=== PATIENT | male | born 1955 | race Caucasian/White ===

== ENCOUNTER → 2018-10-07 | Outpatient (CLI) | payer OTHER ==
[2018-10-07 11:57] VITALS: BP 164/85; PULSE 94; RESP 18
--- NOTE | 2018-10-07 12:55 | P.PAINCN ---
History of Present Illness - Reason for Consult Consult date: 10/07/18 - History of Present Illness This is 63 years old male with a chronic history of severe low back pain, patient diagnosed with lumbar degenerative disc disease and lumbar spondylosis with lumbar facet arthropathy, he had the lumbar laser spine surgery, done several years ago and he continued to have severe low back pain, the pain is constant and increases with any activity patient not able to do activities of daily livings because of the intensity of the pain, he denies any fever or night sweats he denies any change in the bowel movement or urination and is currently on Tylenol #3, every 6 hours ,and he is on Neurontin 600 mg 3 times a day Past Medical History Past Medical History: Heart Failure, Hyperlipidemia Additional Past Medical History / Comment(s): CARDIOMYOPATHY,VARICOSE VEINS. , BACK PAIN ,DIFFICULTY WALKING DISTANCE OR SITTING. History of Any Multi-Drug Resistant Organisms: None Reported Past Surgical History: Back Surgery, Heart Catheterization Additional Past Surgical History / Comment(s): COLONOSCOPY. PAIN CLINIC PROC'S , BACK SURGERY AT [facility] IN [place]. Past Anesthesia/Blood Transfusion Reactions: No Reported Reaction Smoking Status: Heavy tobacco smoker - Past Family History Father Family Medical History: No Reported History Medications and Allergies Home Medications Medication Instructions Recorded Confirmed Type Lisinopril [Zestril] 20 mg PO HS 01/29/14 10/06/18 History Metoprolol Tartrate [Lopressor] 12.5 mg PO BID 01/29/14 10/06/18 History Multivitamin [Multivitamins] 1 each PO DAILY 01/29/14 10/06/18 History Acetaminophen-Codeine 300-30mg 1 tab PO Q6H PRN 10/06/18 10/06/18 History [Tylenol w/codeine #3] Gabapentin [Neurontin] 600 mg PO TID 10/06/18 10/06/18 History Allergies Allergy/AdvReac Type Severity Reaction Status Date / Time No Known Allergies Allergy Verified 10/06/18 08:46 Physical Exam Vitals: Vital Signs Pulse Resp BP Pulse Ox 10/07/18 11:48 94 18 164/85 98 Social history : smoker , social ETOH , use marijuana Review of Systems : 1- Constitutional : no chills , no fever , no night sweats , 2- Ears : no ear discharge , no change in hearing 3-Nose, Mouth ,Throat ; no bleeding gums, no sore throat , no epistaxis , 4-Cardiovascular : Denies chest pain, , no orthopnea , no palpitation 5-Respiratory : Denies cough , no dyspnea , no hemoptysis 6-Gastrointestinal :, no change in bowel habits , no coffee- ground emesis . 7-Genitourinary : No hematuria , no discharge , no incontinence, 8-Musculoskeletal : No gait dysfunction , report low back pain , 9- Neurological : no ataxia , no tremor , no sezure , 10-Psychatric , no suicidal ideation no hallucination 11- Endocrine : no cold intolerence , no polyuria , no polydypsia , 12-Hematologic : no easy bleeding , no easy brusing , 13-Allergic / immunology : no angioedema , no wheezing ,no allergic rhinitis 14-Integumentary : no brttle nails , no change hair / nails , no foot/leg ulcers . Physical Examinations : 1-Constitutional : Cooperative , not in acute distress . 2-HEENT : nech ; supple , no Lymphadenopathy , no Thyromegaly , :eyes , no icterus, no photophobia . ENT : , normal oropharynx , no Thrush 3- Respiratory : Chest clear to auscultations Bilaterally , no wheezing . 4- Cardiovascular : regular rate and rhythem , S1 , S2 , no S3 , no S4. 5- Gastrointestinal: abdomen soft no tenderness , no organomegally . 6- Genitourinary : Defferred . 7-Integumentary : No cellulitis , no ulcers , normal skin turgor , no cyanotic . 8- neurologic : Cranial nerve II to XII intact , no focal neurological deffecit 9-psychatric : alert , oriented X 3 , appropriate affect , intact judgment and insight . 10-Lymphatic : no Lymphadenopathy. 11- musculoskeltal: abnormal gait Lumber spine moter stegnth lower extremities ,thigh and legs 5/5 Right side , 5/5 Left side deep tendon reflexes : normal Knee Jerk , normal ankle Jerk positive lumber facet Loading Test Range of motion of the lumbar spine Flexion 30 degrees, extension 10 degrees strait leg raising test negative bilaterally Fabere test negative bilaterally Results Comments: MRI of the lumbar spine done at [facility] 2018= multilevel lumbar degenerative disc disease multilevel lumbar facet arthropathy , and right hemilaminectomy changes at the L34 , L4 5 Assessment and Plan Plan: Assessment and plan= chronic severe low back pain secondary to failed back surgery syndrome and lumbar area, lumbar spondylosis with lumbar facet arthropathy, and lumbar degenerative disc disease , patient will be good candidate for diagnostic medial branch block lumbar area at L3 to S1, done twice and it is possible proceed with the radiofrequency ablation of the medial branch lumbar area, procedure risk and benefits and alternatives were discussed with the patient he agreed with the preceding, patient should continue his current medication is getting prescription refills from his primary care Time with Patient: Greater than 30 PQRS Measure Charge Sheet Measure #130: Documentation of Current Meds in Medical Chart: Patient's medications documented in chart Measure #226: Tobacco Use: Screen & Cessation Intervention: Pt screened for tobacco use AND intervention given Measure #111: Pneumonia Vaccination: Pneumococcal vaccine NOT administered or previously given Measure #47: Advance Care Plan: Advance care planning discussed & documented, pt chose/unable to give Measure #412: Opioid Treatment Agreement: No documentation of signed opioid treatment agreement Measure #408: Opioid Therapy Follow-up Evaluation: Patient had NO f/u eval minimum every 3 months during opioid therapy Measure #317: Preventitive Care & Scrn High Bld Press & F/U: Pre-hypertensive or hypertensive BP documented, pt will f/u with PCP Measure #128: Body Mass Index (BMI) Screening & Follow-up: BMI documented within normal parameters Measure #131: Pain Assessment & Follow-up: Pain positive & plan documented, Follow-up scheduled Measure #431: Unhealthy Alcohol Use Preventative Care & Scrn: Patient not identified as an unhealthy alcohol user PQRS Narrative: Smoking Status Heavy tobacco smoker Do You Want the Pneumonia No Vaccine AT THIS TIME? Blood Pressure 164/85 Pain Intensity [Back] 7 Scale Used Numeric (1 - 10) Hx Alcohol Use (MH) Yes Home Medications: Ambulatory Orders Lisinopril [Zestril] 20 mg PO HS 01/29/14 Metoprolol Tartrate [Lopressor] 12.5 mg PO BID 01/29/14 Multivitamin [Multivitamins] 1 each PO DAILY 01/29/14 Acetaminophen-Codeine 300-30mg [Tylenol w/codeine #3] 1 tab PO Q6H PRN 10/06/18 Gabapentin [Neurontin] 600 mg PO TID 10/06/18
== END ==
LOC: PNWHC3 11:27
PROVIDERS: ATTEND Specialist
DX: G89.29 Other chronic pain (principal); M96.1 Postlaminectomy syndrome, not elsewhere classified; M51.36 Other intervertebral disc degeneration, lumbar region; M47.816 Spondylosis without myelopathy or radiculopathy, lumbar region; M46.96 Unspecified inflammatory spondylopathy, lumbar region; F17.290 Nicotine dependence, other tobacco product, uncomplicated; Z79.899 Other long term (current) drug therapy
CPT/HCPCS: 99211

== ENCOUNTER → 2018-10-21 | Day surgery (SDC) | payer OTHER ==
[~2018-10-21] MED LIST: IV FLUID CONTINUATION 1,000 ML IV ONE; LACTATED RINGERS 1,000 ML IV ONE; LIDOCAINE 1% 20 ML VIAL (10MG/ML) FOR IV START INTRADERMA ONE; SODIUM CHLORIDE 0.9% 500 ML 500 ML IV SCH
[2018-10-21 07:42] VITALS: TEMP 98.4
--- NOTE | 2018-10-21 08:55 | P.PCN ---
Date of Procedure: 10/21/18 Procedure(s) Performed: PREOPERATIVE DIAGNOSIS : 1- Lumbar spondylosis with Facet Arthropathy without myelopathy . 2- Lumber degenerative disc disease POSTOPERATIVE DIAGNOSIS: 1- Lumbar spondylosis with Facet Arthropathy without myelopathy . 2- Lumber degenerative disc disease PROCEDURE: Diagnostic bilateral L3 -4 , L4 -5 , and L5-S1 medial branch block under fluoroscopy ANESTHESIA: Local with Ropivacain 0.5 % 6 ml , moderate sedation with intravenous Versed 2 mg and Fentanyl 150 mcg. EBL: Minimal COMPLICATION: None. IV FLUIDS: 100 mL of normal saline. PROCEDURE INDICATION: Chronic low back pain secondary to Facet arthropathy unresponsive to conservative treatment. PROCEDURE DESCRIPTION: the patient was seen and identified in the preop holding area , risks and benefits and possible complications of the procedure and alternative were discussed with the patient, and the patient agreed to proceed with the procedure and signed the consent IV was started and vital signs monitored during the procedure and fluoroscopy was used to maximize the benefit and accuracy of the needle placement, and sedation was given to decrease patient anxiety, patient was taken to the procedure room and placed in prone position vital signs monitored in the back prepped with chlorhexidine X3 then under strict sterile technique using a right oblique fluoroscopy ,the junction of the transverse process and the superior articulating process of the right L3- 4 , L4- 5, and L5-S1 vertebra which corresponding to the fluoroscopy image of the eye of the Donovan dog on the block side for the medial branches and subsequently , after local infiltration of skin and subcu tissuies with Ropivacaine 0.5 % , one mL at each level , then 22-gauge Quincke-type needles , 3 needle was used , each one of them placed at the junction of the base of the transverse process and the superior articular process at the appropriate level, and the needle was advanced until the periosteum contacted, needle placement confirmed with AP oblique and lateral view and after appropriate needle placement confirmed, and after negative aspiration for heme and CSF and there was no paresthesia 1-1/2 mL of Ropivacaine 0.5% mixed with 20 mg kenalog, then half mL injected at each level after negative aspiration the needle subsequently removed and the same procedure repeated for the left side at left side at L3-4, L4- 5 and L5-S1 levels. At the end of the procedure and the needles removed and a bandage applied after the skin was cleaned the cleaning solution patient taken to recovery room in stable condition and monitors in the recovery room for 20-30 minutes and discharged home in stable condition after discharge criteria met and patient will follow up with the pain clinic in 2-4 weeks
--- NOTE | 2018-10-21 09:09 | FL ---
EXAMINATION TYPE: FL guided pain mgmt statistic DATE OF EXAM: 10/21/2018 CLINICAL HISTORY: Low back pain. TECHNIQUE: Fluoroscopy. COMPARISON: None. FINDINGS: Fluoroscopic guidance was provided during pain relief procedure performed by Dr. Calix . A total of 10 seconds of fluoroscopic time was utilized during the procedure and 3 spot images are acquired. Images acquired shows needle localization at several levels in the lower lumbar spine off the midline. IMPRESSION: As Above.
[2018-10-21 09:17] VITALS: BP 135/85; PULSE 77; RESP 18
== END | disposition home or self-care (01) ==
LOC: ORPAIN 07:21
PROVIDERS: ATTEND Specialist
DX: M47.816 Spondylosis without myelopathy or radiculopathy, lumbar region (principal); G89.29 Other chronic pain; M96.1 Postlaminectomy syndrome, not elsewhere classified; M51.36 Other intervertebral disc degeneration, lumbar region; E78.5 Hyperlipidemia, unspecified; F17.200 Nicotine dependence, unspecified, uncomplicated; I50.9 Heart failure, unspecified; Z79.899 Other long term (current) drug therapy
CPT/HCPCS: 64493; 64494; 64495; J2250; J3301; J3010; 99152

== ENCOUNTER 2018-11-04 05:55 | Day surgery (SDC) | payer OTHER ==
[~2018-11-04 05:55] MED LIST changes: -IV FLUID CONTINUATION 1,000 ML IV ONE; -LACTATED RINGERS 1,000 ML IV ONE; -LIDOCAINE 1% 20 ML VIAL (10MG/ML) FOR IV START INTRADERMA ONE
[2018-11-04 06:25] VITALS: RESP 16; TEMP 97.6
[2018-11-04] MEDS ORDERED: LACTATED RINGERS 1,000 ML IV ONE (06:34)
[2018-11-04] MEDS ORDERED: LIDOCAINE 1% 20 ML VIAL (10MG/ML) FOR IV START INTRADERMA ONE (06:35)
[2018-11-04] MEDS ORDERED: IV FLUID CONTINUATION 1,000 ML IV ONE (07:27)
[2018-11-04 07:43] VITALS: BP 112/76; PULSE 81
--- NOTE | 2018-11-04 07:52 | P.PCN ---
Date of Procedure: 11/04/18 Procedure(s) Performed: PREOPERATIVE DIAGNOSIS : 1- Lumbar spondylosis with Facet Arthropathy without myelopathy . 2- Lumber degenerative disc disease POSTOPERATIVE DIAGNOSIS: 1- Lumbar spondylosis with Facet Arthropathy without myelopathy . 2- Lumber degenerative disc disease PROCEDURE: Diagnostic bilateral L3 -4 , L4 -5 , and L5-S1 medial branch block under fluoroscopy ANESTHESIA: Local with Ropivacain 0.5 % 6 ml , moderate sedation with intravenous Versed 4 mg ,and Fentanyl 100 mcg. EBL: Minimal COMPLICATION: None. IV FLUIDS: 100 mL of normal saline. PROCEDURE INDICATION: Chronic low back pain secondary to Facet arthropathy unresponsive to conservative treatment. PROCEDURE DESCRIPTION: the patient was seen and identified in the preop holding area , risks and benefits and possible complications of the procedure and alternative were discussed with the patient, and the patient agreed to proceed with the procedure and signed the consent IV was started and vital signs monitored during the procedure and fluoroscopy was used to maximize the benefit and accuracy of the needle placement, and sedation was given to decrease patient anxiety, patient was taken to the procedure room and placed in prone position vital signs monitored in the back prepped with chlorhexidine X3 then under strict sterile technique using a right oblique fluoroscopy ,the junction of the transverse process and the superior articulating process of the right L3- 4 , L4- 5, and L5-S1 vertebra which corresponding to the fluoroscopy image of the eye of the Donovan dog on the block side for the medial branches and subsequently , after local infiltration of skin and subcu tissuies with Ropivacaine 0.5 % , one mL at each level , then 25-gauge Quincke-type needles , 3 needle was used , each one of them placed at the junction of the base of the transverse process and the superior articular process at the appropriate level, and the needle was advanced until the periosteum contacted, needle placement confirmed with AP oblique and lateral view and after appropriate needle placement confirmed, and after negative aspiration for heme and CSF and there was no paresthesia 1-1/2 mL of Ropivacaine 0.5% mixed with 20 mg kenalog, then half mL injected at each level after negative aspiration the needle subsequently removed and the same procedure repeated for the left side at left side at L3-4, L4- 5 and L5-S1 levels. At the end of the procedure and the needles removed and a bandage applied after the skin was cleaned the cleaning solution patient taken to recovery room in stable condition and monitors in the recovery room for 20-30 minutes and discharged home in stable condition after discharge criteria met and patient will follow up with the pain clinic in 2-4 weeks
--- NOTE | 2018-11-04 14:13 | FL ---
Fluoroscopy INDICATION: Pain FINDINGS: Fluoroscopy time: 9 seconds. Images obtained: 4. IMPRESSIONS: 1. Documentation of fluoroscopy.
== END 2018-11-04 08:00 | disposition home or self-care (01) ==
LOC: ORPAIN 05:55
PROVIDERS: ATTEND Specialist
DX: G89.29 Other chronic pain (principal); M47.816 Spondylosis without myelopathy or radiculopathy, lumbar region; M51.36 Other intervertebral disc degeneration, lumbar region; I10 Essential (primary) hypertension
CPT/HCPCS: 64493; 64494; 64495; J2250; J1030; J3010; 99152

== ENCOUNTER → 2018-11-25 | Outpatient (CLI) | payer OTHER ==
[2018-11-25 12:36] VITALS: BP 128/90; PULSE 93; RESP 16
--- NOTE | 2018-11-25 14:47 | P.PAINPG ---
Subjective Progress Note Date: 11/25/18 This is a follow-up visit for this 63 years old male with a chronic history of severe low back pain is diagnosed with lumbar spondylosis with lumbar facet arthropathy and failed back surgery syndrome lumbar., Recently we have done diagnostic medial branch block lumbar area L3 to S1, 2 and patient get more than 70% improvement in his low back pain for short-term , he denies any fever or night sweats he denies any motor or sensory deficit, he reported that pain increases with any activity, he continued to use Neurontin 600 mg 3 times a day and Tylenol 3 when necessary , he denies any side effects of the medication he denies any excessive drowsiness or sleepiness Objective - Vital Signs Vital signs: Vital Signs Temp Pulse 93 11/25/18 12:29 Resp 16 11/25/18 12:29 BP 128/90 11/25/18 12:29 Pulse Ox Intake & Output 11/24/18 11/25/18 11/25/18 18:59 06:59 18:59 Weight 63.503 kg - Exam Physical Examinations : -Constitutiona : Cooperative , not in acute distress . -HEENT : nech ; supple , no Lymphadenopathy , normal thyroid size . eyes : no ptosis , no icterus, no photophobia . - musculoskeltal : . Lumber spine moter stegnth lower extremities ,thigh and legs 5/5 Right side , 5/5 Left side positive lumber facet Loading Test Assessment and Plan Plan: Assessment and plan= chronic severe low back pain secondary to lumbar spondylosis and failed back surgery syndrome lumbar area Patient had a good result after the diagnostic medial branch block lumbar area at L3 4, L4 5, L5-S1 2 We will be good candidate for radiofrequency ablation of the medial branch lumbar area ,we will start the right side first Time with Patient: Less than 30 PQRS Measure Charge Sheet Measure #130: Documentation of Current Meds in Medical Chart: Patient's medications documented in chart Measure #226: Tobacco Use: Screen & Cessation Intervention: Pt screened for tobacco use AND intervention given Measure #111: Pneumonia Vaccination: Pneumococcal vaccine NOT administered or previously given Measure #47: Advance Care Plan: Advance care planning discussed & documented, pt chose/unable to give Measure #412: Opioid Treatment Agreement: No documentation of signed opioid treatment agreement Measure #408: Opioid Therapy Follow-up Evaluation: Patient had NO f/u eval minimum every 3 months during opioid therapy Measure #317: Preventitive Care & Scrn High Bld Press & F/U: Normal blood pressure, f/u not required Measure #128: Body Mass Index (BMI) Screening & Follow-up: BMI documented within normal parameters Measure #131: Pain Assessment & Follow-up: Pain positive & plan documented, Follow-up scheduled Measure #431: Unhealthy Alcohol Use Preventative Care & Scrn: Patient not identified as an unhealthy alcohol user PQRS Narrative: Smoking Status Current every day smoker Blood Pressure 128/90 Pain Intensity [Lower Back] 5 Hx Alcohol Use (MH) Yes Home Medications: Ambulatory Orders Lisinopril [Zestril] 20 mg PO HS 01/29/14 Metoprolol Tartrate [Lopressor] 12.5 mg PO BID 01/29/14 Multivitamin [Multivitamins] 1 each PO DAILY 01/29/14 Acetaminophen-Codeine 300-30mg [Tylenol w/codeine #3] 1 tab PO Q6H PRN 10/06/18 Gabapentin [Neurontin] 600 mg PO TID 10/06/18 Controlled Substance Measures - Controlled Substance Measures Is patient prescribed a controlled substance at discharge?: No
== END ==
LOC: PNWHC3 12:15
PROVIDERS: ATTEND Specialist
DX: G89.29 Other chronic pain (principal); M47.816 Spondylosis without myelopathy or radiculopathy, lumbar region; M96.1 Postlaminectomy syndrome, not elsewhere classified; F17.200 Nicotine dependence, unspecified, uncomplicated; Z79.899 Other long term (current) drug therapy
CPT/HCPCS: 99211

== ENCOUNTER 2018-12-10 08:18 | Day surgery (SDC) | payer OTHER ==
[2018-12-10 08:53] VITALS: RESP 16; TEMP 97.5
[2018-12-10] MEDS ORDERED: LACTATED RINGERS 1,000 ML IV ONE (08:54)
[2018-12-10] MEDS ORDERED: LIDOCAINE 1% 20 ML VIAL (10MG/ML) FOR IV START INTRADERMA ONE (08:54)
--- NOTE | 2018-12-10 09:57 | P.PCN ---
Date of Procedure: 12/10/18 Procedure(s) Performed: PREOPERATIVE DIAGNOSIS: 1-Lumbar Spondylosis with Facet Arthropathy without myelopathy. 2- Lumber degenerative disc disease POSTOPERATIVE DIAGNOSIS: 1- Lumbar Spondylosis with Facet Arthropathy without myelopathy. 2- Lumber degenerative disc disease PROCEDURES : Left Right Bilateral Radiofrequency thermocoagulation, L3-L4, L4-L5, and L5-S1 medial branch, with fluoroscopic guidance ANESTHESIA: Moderate sedation with intravenous versed 4 mg and fentaneyl 100 mcg, and local infiltration with Ropivacaine 0.5 % . EBL: Minimal PROCEDURE INDICATION: The patient with low back pain secondary to lumbar facet arthropathy who had more than 50% relief of her pain with previous diagnostic lumbar medial branch block with bupivacaine. PROCEDURE DESCRIPTION / TECHNIQUE: The patient was seen and identified in the preoperative area. Risks, benefits, complications, including but not limited to risk of infection ,bleeding , allergic reactions to the medications and no complete pain releife , and alternatives were discussed with the patient, the patient agreed to proceed with the procedure and signed the consent. IV was started. Vital signs remained stable throughout the procedure. Patient was taken to the OR and time out was completed. The patient was placed in the prone position on the procedure table. The lumber area was prepped and draped in the usual sterile fashion. . Vital signs were closely monitored during the procedure .IV sedation was used during the procedure to decrease patients anxiety. Using AP and then oblique fluoroscopy, the ``eye of the Donovan dog corresponding to the connection between the superior and transverse articular processes of right L3, L4, and L5 were identified, marked, and localized with 1% lidocaine. Subsequently, a 18 [id number] radiofrequency cannula with a 10- mm active tip was advanced guided by fluoroscopy to each of the``eyes of the Donovan dog at right L3, L4, and L5. Each site then underwent sensory testing at 50 Hz and 0 to 1 volt and motor testing at 2.5 Hz and 0 to 3 volt with local stimulation, but no radicular symptoms down the legs. Thereafter the right L3-4, L4-5, and L5-S1 sites underwent radiofrequency thermocoagulation at 80 degrees celsius for 90 seconds after injecting 0.5 ml of PF Ropivacaine 1ml, then after the thermocoagulation done , 1 ml of the block solution containing Depo-Medrol 40 mg and 3 ml of Ropivacaine 0.5% was injected at the right L3-4 , L4-5 , and L5-S1, levels after negative aspiration of CSF and blood and with no paresthesias. Cannulas were retracted while injecting lidocaine 1% until the needle is out. At the end of the procedure, the skin was cleansed and bandages were applied. COMPLICATIONS: No acute complications. DISPOSITION / PLANS: The patient was placed in a supine position and transferred to the recovery area in a stable condition for observation and was discharged from the recovery room after meeting discharge criteria. Home discharge instructions given to the patient by the staff. The patient was reexamined prior to discharge. The patient will schedule a follow up in the clinic in 2-4 weeks.
[2018-12-10] MEDS ORDERED: IV FLUID CONTINUATION 1,000 ML IV ONE ×2 (10:01)
[2018-12-10 10:05] VITALS: PULSE 82
--- NOTE | 2018-12-10 10:14 | FL ---
EXAMINATION TYPE: FL guided pain mgmt statistic DATE OF EXAM: 12/10/2018 CLINICAL HISTORY: Low back pain. TECHNIQUE: Fluoroscopy. COMPARISON: None. FINDINGS: Fluoroscopic guidance was provided during pain relief procedure performed by Dr. Calix . A total of 10 seconds of fluoroscopic time was utilized during the procedure and 3 spot images are acquired. Images acquired shows needle localization at multiple levels within the lumbar spine. IMPRESSION: As Above.
[2018-12-10 10:17] VITALS: BP 126/90
== END 2018-12-10 10:32 | disposition home or self-care (01) ==
LOC: ORPAIN 08:18
PROVIDERS: ATTEND Specialist
DX: M47.816 Spondylosis without myelopathy or radiculopathy, lumbar region (principal); M51.36 Other intervertebral disc degeneration, lumbar region
CPT/HCPCS: 64635; 64636; J2250; J1030; J3010; 99152

== ENCOUNTER → 2018-12-29 | Day surgery (SDC) | payer OTHER ==
[~2018-12-29] MED LIST changes: +IV FLUID CONTINUATION 1,000 ML IV ONE; +LACTATED RINGERS 1,000 ML IV ONE; +LIDOCAINE 1% 20 ML VIAL (10MG/ML) FOR IV START INTRADERMA ONE; -SODIUM CHLORIDE 0.9% 500 ML 500 ML IV SCH
[2018-12-29 07:44] VITALS: RESP 16; TEMP 97.3
--- NOTE | 2018-12-29 08:34 | P.PCN ---
Date of Procedure: 12/29/18 Operative Findings: PREOPERATIVE DIAGNOSIS: Lumbar Facet Arthropathy. POSTOPERATIVE DIAGNOSIS: Lumbar Facet Arthropathy. PROCEDURES : LEFT Radiofrequency thermocoagulation, L3, L4, and L5, s1 medial branch, with fluoroscopic guidance ANESTHESIA: IV sedation with versed and fentanyl and local infiltration with lidocaine 1% 10 ml EBL: Minimal PROCEDURE INDICATION: The patient with low back pain secondary to lumbar facet arthropathy who had more than 50% relief of pain with previous diagnostic lumbar medial branch block with local anesthetic. PROCEDURE DESCRIPTION / TECHNIQUE: The patient was seen and identified in the preoperative area. Risks, benefits, complications, including but not limited to risk of infection ,bleeding , allergic reactions to the medications and no complete pain relief , and alternatives were discussed with the patient, the patient agreed to proceed with the procedure and signed the consent. IV was started. Vital signs remained stable throughout the procedure. Patient was taken to the OR and time out was completed. The patient was placed in the prone position on the procedure table. The lumber area was prepped and draped in the usual sterile fashion. . Vital signs were closely monitored during the procedure .IV sedation was used during the procedure to decrease patient anxiety. Using AP and then oblique fluoroscopy, the eye of the Donovan dog corresponding to the connection between the superior and transverse articular processes of left L3, L4, and L5 were identified, marked, and localized with 1% lidocaine. Subsequently, a 20 [id number] radiofrequency cannula with a 10-mm active tip was advanced guided by fluoroscopy to each of the eyes of the Donovan dog at L3, L4, and L5 and sacral ala. Each site then underwent sensory testing at 50 Hz and 0 to 1 volt and motor testing at 2.5 Hz and 0 to 3 volt with local stimulation, but no radicular symptoms down the legs. Thereafter the L3, L4, and L5 sites underwent radiofrequency thermocoagulation at 80 degrees celsius for 90 seconds after injecting 0.5 ml of PF lidocaine 1%. Then after the thermocoagulation was done , 1 ml of the block solution containing marcaine 0.5% was injected at the left L3 , L4 , and L5, levels after negative aspiration of CSF and blood and with no paresthesias. Cannulas were retracted. At the end of the procedure, the skin was cleansed and bandages were applied. COMPLICATIONS: No acute complications. DISPOSITION / PLANS: The patient was placed in a supine position and transferred to the recovery area in a stable condition for observation and was discharged from the recovery room after meeting discharge criteria. Home discharge instructions given to the patient by the staff. The patient was reexamined prior to discharge. Follow-up in the clinic in 2-4 weeks
--- NOTE | 2018-12-29 09:14 | FL ---
EXAMINATION TYPE: FL guided pain mgmt statistic DATE OF EXAM: 12/29/2018 CLINICAL HISTORY: Low back pain. TECHNIQUE: Fluoroscopy. COMPARISON: None. FINDINGS: Fluoroscopic guidance was provided during pain relief procedure performed by Dr. Ragland . A total of 6 seconds of fluoroscopic time was utilized during the procedure and 1 spot image is acq uired. Single image acquired shows needle localization at several levels in the lower lumbar spine. IMPRESSION: As Above.
[2018-12-29 09:22] VITALS: BP 133/84; PULSE 79
== END ==
LOC: ORPAIN 07:25
PROVIDERS: ATTEND Hospitalist
DX: M47.816 Spondylosis without myelopathy or radiculopathy, lumbar region (principal)
CPT/HCPCS: 64635; J2250; J2001; J3010; 64636; 99152

== ENCOUNTER → 2019-02-13 | Outpatient (CLI) | payer MEDICAID ==
--- NOTE | 2019-02-13 13:36 | CT ---
EXAMINATION TYPE: CT soft tissue neck w con DATE OF EXAM: 02/13/2019 HISTORY: Neck Mass, left throat pain for 5 weeks. COMPARISON: NONE CT DLP: 307.4 mGycm. Automated Exposure Control for Dose Reduction was Utilized. TECHNIQUE: CT scan of the neck is performed with IV Contrast, patient injected with 100 mL of Isovue 300, axial images are obtained, coronal and sagittal reformatted images are reviewed. FINDINGS: Airway: There is an 8mm ovoid low-density structure in the left side of the vallecula. There is also asymmetric thickening of the posterior false focal cord at its superior aspect on image 44. This zurdo ures 1.0 x 1.1 cm. There is also asymmetry of the palatine tonsils on image 66 with lobulated protrus ion of the (seen tonsil medially into the airway abutting the uvula. Numerous tonsilloliths are incid entally noted. Parotid/submandibular glands: No gross abnormality seen. Carotid/Vascular Structures: The left vertebral artery is slightly dominant. Both vertebral arteries appear patent. There is a conventional three-vessel branch pattern of the aortic arch. Nonhemodynamic ally significant calcific atherosclerosis is seen of the common carotid arteries, carotid bulbs, and internal carotid arteries with approximately 50% stenosis of the left carotid bulb and right proximal internal carotid artery. Osseous Structures: Mild multilevel degenerative disc disease of the cervical spine is seen. Mild lef tward nasal septal deviation is identified. Paranasal sinuses as visualized are well aerated as are t he visualized portions of the mastoid air cells. Other: Mild emphysematous changes with paraseptal blebs and biapical fibrotic change are noted of the lungs. IMPRESSION: 1. Asymmetric polypoid thickening of the left false vocal cord and low-density ovoid structure within the left lateral vallecula. Polyps and/or neoplasm should be excluded with direct visualization and therefore laryngoscopy is recommended. 2. Endoscopy is additionally recommended to evaluate the asymmetry of the left palatine tonsil at the level of the uvula.
== END | disposition home or self-care (01) ==
LOC: RADCTMAIN 09:26
PROVIDERS: ATTEND Otolaryngology
DX: C13.8 Malignant neoplasm of overlapping sites of hypopharynx (principal)
CPT/HCPCS: 70491; Q9967

== ENCOUNTER → 2019-02-13 | Outpatient (CLI) | payer MEDICAID | LOC: LABPAT 10:31 | PROVIDERS: ATTEND Otolaryngology | DX: Z01.818 Encounter for other preprocedural examination (principal) | CPT/HCPCS: 93005 ==

== ENCOUNTER → 2019-02-16 | Outpatient (CLI) | payer OTHER ==
[2019-02-16 15:04] VITALS: BP 145/99; PULSE 93; RESP 18
--- NOTE | 2019-02-16 15:56 | P.PN ---
Subjective Progress Note Date: 02/16/19 This is follow-up visit for this 63 years old male with a chronic history of severe low back pain, patient diagnosed with lumbar degenerative disc disease and lumbar spondylosis with lumbar facet arthropathy, he had the lumbar laser spine surgery, done several years ago and he continued to have severe low back pain, the pain is constant and increases with any activity patient not able to do activities of daily livings because of the intensity of the pain, he denies any fever or night sweats he denies any change in the bowel movement or urination and is currently on Tylenol #3, every 6 hours ,and he is on Neurontin 600 mg 3 times a day, recently we have done radiofrequency ablation of the medial branch lumbar area, patient continued to have severe low back pain, the pain is constant and increases with any activity, Social history : smoker , social ETOH , use marijuana Physical Examinations : -Constitutional : Cooperative , not in acute distress . -HEENT : nech ; supple , no Lymphadenopathy , no Thyromegaly , :eyes , no icterus, no photophobia - musculoskeltal: abnormal gait Lumber spine moter stegnth lower extremities ,thigh and legs 5/5 Right side , 5/5 Left side deep tendon reflexes : normal Knee Jerk , normal ankle Jerk positive lumber facet Loading Test Range of motion of the lumbar spine Flexion 30 degrees, extension 10 degrees strait leg raising test negative bilaterally Fabere test negative bilaterally diagnostic= MRI of the lumbar spine done at [facility] June 2018= multilevel lumbar degenerative disc disease multilevel lumbar facet arthropathy, and right hemilaminectomy changes at the L34 , L4 5 Assessment and plan= chronic severe low back pain secondary to failed back surgery syndrome and lumbar area, lumbar spondylosis with lumbar facet arthropathy patient continued to have severe low back pain after radiofrequency ablation of the medial branch lumbar area, he will be good candidate to have caudal epidural steroid injection with lysis of epidural adhesions under fluoroscopy guidance, procedure risk and benefits and alternatives discussed with the patient he agreed with the preceding. PQRS Measure Charge Sheet Measure #130: Documentation of Current Meds in Medical Chart: Patient's medications documented in chart Measure #226: Tobacco Use: Screen & Cessation Intervention: Pt screened for tobacco use AND intervention given Measure #111: Pneumonia Vaccination: Pneumococcal vaccine NOT administered or previously given Measure #47: Advance Care Plan: Advance care planning discussed & documented, pt chose/unable to give Measure #412: Opioid Treatment Agreement: No documentation of signed opioid treatment agreement Measure #408: Opioid Therapy Follow-up Evaluation: Patient had NO f/u eval minimum every 3 months during opioid therapy Measure #317: Preventitive Care & Scrn High Bld Press & F/U: Pre-hypertensive or hypertensive BP documented, pt will f/u with PCP Measure #128: Body Mass Index (BMI) Screening & Follow-up: BMI documented within normal parameters Measure #131: Pain Assessment & Follow-up: Pain positive & plan documented, Follow-up scheduled Measure #431: Unhealthy Alcohol Use Preventative Care & Scrn: Patient not identified as an unhealthy alcohol user PQRS Narrative: Objective - Vital Signs Vital signs: Vital Signs Temp Pulse 93 02/16/19 14:57 Resp 18 02/16/19 14:57 BP 145/99 02/16/19 14:57 Pulse Ox 98 02/16/19 14:57 Intake & Output 02/15/19 02/16/19 02/16/19 18:59 06:59 18:59 Weight 63.503 kg
== END | disposition home or self-care (01) ==
LOC: PNWHC3 14:09
PROVIDERS: ATTEND Specialist
DX: G89.29 Other chronic pain (principal); M96.1 Postlaminectomy syndrome, not elsewhere classified; M51.36 Other intervertebral disc degeneration, lumbar region; M47.816 Spondylosis without myelopathy or radiculopathy, lumbar region; M46.86 Other specified inflammatory spondylopathies, lumbar region; Z79.899 Other long term (current) drug therapy
CPT/HCPCS: 99211

== ENCOUNTER → 2019-02-20 | Outpatient (CLI) | payer MEDICAID ==
[2019-02-20 09:40] LABS: MCV 100.1 fL (80.0-100.0); Platelet Count 222 k/uL (150-450); RBC 5.59 m/uL (4.30-5.90); WBC 8.2 k/uL (3.8-10.6)
== END | disposition home or self-care (01) ==
LOC: LABPAT 09:10
PROVIDERS: ATTEND Otolaryngology
DX: Z01.812 Encounter for preprocedural laboratory examination (principal); C13.1 Malignant neoplasm of aryepiglottic fold, hypopharyngeal aspect
CPT/HCPCS: 36415; 85027

== ENCOUNTER 2019-02-25 08:43 | Day surgery (SDC) | payer MEDICAID ==
[~2019-02-25 08:43] MED LIST changes: +DEXAMETHASONE SOD PHOSPHATE 10 MG/ML 1 ML VIAL IV ONE; +DEXAMETHASONE SOD PHOSPHATE 4 MG/ML 1 ML VIAL IV ONE; +FAMOTIDINE 20 MG/2 ML VIAL IV ONE; -IV FLUID CONTINUATION 1,000 ML IV ONE; +KETOROLAC 30 MG/ML 1 ML VIAL IVP SCH; -LACTATED RINGERS 1,000 ML IV ONE; +LACTATED RINGERS 1,000 ML IV SCH; -LIDOCAINE 1% 20 ML VIAL (10MG/ML) FOR IV START INTRADERMA ONE; +LIDOCAINE 1% 20 ML VIAL (10MG/ML) FOR IV START INTRADERMA PRN; +METOCLOPRAMIDE 5 MG/ML 2 ML VIAL IVP PRN; +ONDANSETRON 4 MG/2 ML VIAL IVP ONE
[2019-02-25] MEDS ORDERED: DEXAMETHASONE SOD PHOS (MDV) 100 MG/10 ML VIAL ONE (09:55)
[2019-02-25] MEDS ORDERED: PROPOFOL 10 MG/ML 20 ML VIAL IV ONE (09:55)
[2019-02-25] MEDS ORDERED: MIDAZOLAM 2 MG/2 ML VIAL ONE (09:55)
[2019-02-25] MEDS ORDERED: LIDOCAINE 1% INJ 10MG/ML (20 ML MDV) ONE (09:55)
[2019-02-25] MEDS ORDERED: SUCCINYLCHOLINE CHLORIDE 100 MG/5 ML SYR IV ONE (09:55)
[2019-02-25] MEDS ORDERED: fentaNYL (PF) 50 MCG/ML 2 ML AMP ONE (09:55)
--- NOTE | 2019-02-25 10:40 | P.OP ---
Date of Procedure: 02/25/19 Preoperative Diagnosis: Left aryepiglottic fold lesion Postoperative Diagnosis: Same Procedure(s) Performed: Rigid esophagoscopy Flexible bronchoscopy Direct microlaryngoscopy with biopsy left aryepiglottic fold lesion Anesthesia: GETA Surgeon: Darren Grullon Estimated Blood Loss (ml): 2 Pathology: other (Left aryepiglottic fold lesion) Condition: stable Disposition: PACU Indications for Procedure: This 63-year-old white male with a chronic left-sided sore throat and notable l esion of the left aryepiglottic fold on flexible endoscopy Operative Findings: There is a lesion centered over the left area epiglottic fold approximately 13- 14 mm across which is exophytic with an ulcerative necrotic center. This is erythematous and suspicious for malignancy. CT also indicated a nodular area in the left vallecula which appeared unremarkable as well as some tonsillar asymmetry on the left which also appeared unremarkable the esophagoscopy and bronchoscopy showed no lesions grossly Description of Procedure: The patient was brought in the operative suite and placed in a supine position. Patient underwent induction of general anesthesia with oral endotracheal intubation without difficulty. The patient was prepped and draped in usual aseptic fashion. A tooth guard was placed. Rigid esophagoscopy was performed with systematic evaluation of the esophagus down to 40 cm from the upper incisors and then was withdrawn with no abnormalities seen and no trauma to the mucosa. Direct laryngoscopy was then performed with systematic evaluation of the base of tongue vallecula both piriform sinuses post cricoid area and endo larynx. With the laryngoscope in position to show the vocal cords, flexible bronchoscopy was performed with systematic evaluation of the distal trachea and primary down to secondary bronchi with no abnormalities seen. The bronchoscope was then withdrawn. The laryngoscope was then brought into position to visualize the lesion of the left area epiglottic fold and was placed in suspension. The Zeiss microscope was then used to visualize the lesion and multiple biopsies were taken with microcup forceps and sent for permanent section. Hemostasis was gained spontaneously. The laryngoscope and tooth guard were removed. The base of tongue was then palpated digitally with no abnormalities noted. The patient was then suctioned in the hypopharynx and was allowed to emerge from anesthesia having tolerated procedure well was extubated in the operating and transferred to the postop recovery area in satisfactory condition.
[2019-02-25 10:59] VITALS: RESP 16; TEMP 97.9
[2019-02-25] MEDS: HYDROmorphone 0.5 MG/0.5 ML SYRINGE IVP PRN ×2 (10:59→11:12)
[2019-02-25 12:04] VITALS: BP 157/91
[2019-02-25 12:26] VITALS: PULSE 85
== END 2019-02-25 12:37 | disposition home or self-care (01) ==
LOC: OR 08:43
PROVIDERS: ATTEND Otolaryngology
DX: C13.1 Malignant neoplasm of aryepiglottic fold, hypopharyngeal aspect (principal); I25.10 Atherosclerotic heart disease of native coronary artery without angina pectoris; I50.9 Heart failure, unspecified; G89.29 Other chronic pain; M47.816 Spondylosis without myelopathy or radiculopathy, lumbar region; F17.210 Nicotine dependence, cigarettes, uncomplicated; Z95.5 Presence of coronary angioplasty implant and graft; Z79.899 Other long term (current) drug therapy; Z79.1 Long term (current) use of non-steroidal anti-inflammatories (NSAID); Z79.891 Long term (current) use of opiate analgesic
CPT/HCPCS: 88305; 88342; 43191; 31622; 31536; J2250; J1100 ×2; J2405; J0690; J2001; J3010; J0330; J2704; J1170

== ENCOUNTER 2019-03-02 06:40 | Day surgery (SDC) | payer MEDICAID ==
[2019-03-02 07:11] VITALS: TEMP 98
[2019-03-02 07:19] LABS: Glucose,Whole Blood 86 mg/dL (75-99)
[2019-03-02] MEDS ORDERED: LIDOCAINE 1% 20 ML VIAL (10MG/ML) FOR IV START INTRADERMA ONE (07:19)
[2019-03-02] MEDS ORDERED: LACTATED RINGERS 1,000 ML IV ONE (07:19)
--- NOTE | 2019-03-02 08:10 | P.PCN ---
Date of Procedure: 03/02/19 Description of Procedure: PREOP DIAGNOSIS: Lumbar postlaminectomy syndrome POSTOP DIAGNOSIS: Lumbar postlaminectomy syndrome PROCEDURE: Caudal epidural steroid injection with epidurolysis and epidurogram under fluoroscopic guidance ANESTHESIA: Local with 1% lidocaine 5 ml ; IV sedation with versed 2 mg and fentanyl 200 mics PROCEDURE INDICATION: The patient with post-laminectomy syndrome with low back pain here for a caudal epidural steroid injection with epidurolysis. PROCEDURE DESCRIPTION: The patient was seen and identified in the preoperative area. Risks, benefits, complications, and alternatives were discussed with the patient. The patient agreed to proceed with the procedure and signed the consent. IV was started, and vital signs were stable. Patient was taken to the OR and time out was completed. The patient was placed in the prone position on procedure table and a pillow was placed under the abdomen to reduce lumbar lordosis. The lumbosacral area was prepped and draped in the usual sterile fashion. Vital signs were closely monitored during the procedure. Lateral view and the anterior-posterior plates of the sacrum were identified with infiltration of the area overlying the sacral hiatus with 1% lidocaine. A 17 gauge epidural needle was used to advance through the sacral hiatus into the caudal epidural space. Omnipaque 180 dye 2cc was injected and the position of the needle was verified to be in the midline. A Racz catheter was introduced into the epidural space and was advanced towards the L5-S1 interspace under direct fluoroscopic guidance. Multiple passes were made with the catheter for lysis of epidural adhesions avoiding parasthesia and significant resistance with a left side clearance and unable to pass the catheter to the right side. Contrast dye showed a filling defect along the entire right side of the epidural space. After epidurolysis was complete, 2cc of contrast dye was again used to evaluate spread of contrast in the contrast showed a more cephalad spread along the left epidural space none to the right side. Contrast was spreading beyond the original level on the left side but no contrast spreading up the right side. After negative aspiration, I injected a solution consisting of 40mg of Depo- Medrol, 2ml of Preservative free normal saline and 2ml of ropivacaine 0.5% for a total of 5ml. Additional spread was seen to L4 5 level on the left side under fluoroscopy. The needle and the catheter were withdrawn intact. Epidurogram findings: Omnipaque 180 mg dye 2 ml was injected with spread of the dye into the caudal epidural space and with spread cutoff at L5 prior to epidurolysis. Post epidurolysis dye 2 ml was injected and spread was seen to L4 level on the left side only with filling defect along the entire right epidural space COMPLICATIONS: None. DISPOSITION / PLANS: The patient was placed in a supine position and transferred to the recovery area in a stable condition for observation and was discharged from the recovery room after meeting discharge criteria. Home discharge instructions given to the patient by the staff. The patient was reexamined prior to discharge. The patient will schedule a follow up as directed
[2019-03-02] MEDS ORDERED: IV FLUID CONTINUATION 700 ML IV ONE (08:12)
[2019-03-02 08:16] VITALS: RESP 18
[2019-03-02 08:39] VITALS: BP 133/80; PULSE 66
--- NOTE | 2019-03-02 08:51 | FL ---
Fluoroscopy HISTORY: Pain 9 seconds fluoroscopy time supplied to the referring clinician. 3 intraoperative C-arm images docume nt the procedure. See dictated report from anesthesia.
== END 2019-03-02 08:42 | disposition home or self-care (01) ==
LOC: ORPAIN 06:40
PROVIDERS: ATTEND Hospitalist
DX: M96.1 Postlaminectomy syndrome, not elsewhere classified (principal)
CPT/HCPCS: 62264; J2250; J1030; J3010; C1894; 99152

== ENCOUNTER → 2019-03-14 | Outpatient (CLI) | payer OTHER ==
--- NOTE | 2019-03-16 07:56 | PE ---
EXAMINATION TYPE: PET CT fusion skull to thigh DATE OF EXAM: 03/14/2019 COMPARISON: Neck CT February 13, 2019. HISTORY: Malignant neoplasm of supraglottis, initial staging study. TECHNIQUE: Following the intravenous administration of 13.41 mCi of F-18 FDG, whole body images are performed from the skull base to the midthigh. Images are reviewed on the computer in the coronal, a xial, and sagittal planes. Reconstructed rotating images are created on independent workstation and reviewed on the computer. A noncontrast CT is performed in conjunction with the PET scan. Dedicated PET/CT imaging of the neck is also performed. SCAN: Initial Scan FINDINGS: SKULL BASE AND NECK: Corresponding to recent neck CT there is asymmetric 8 mm thickening of the left vallecula axial image 47 without hypermetabolic uptake. Just below and lateral to this there is asymmetric hypermetabolic thickening of the left aryepiglotti c fold filling the left piriform sinus seen better on prior contrast-enhanced neck CT over a roughly 1.6 cm round area near axial image 53, max SUV is 16.28. There is single prominent 6 mm slightly hypermetabolic left submandibular lymph node axial image 42. Max SUV is 3.22 thus borderline. No additional suspicious areas of hypermetabolic uptake or adenopathy. CHEST, MEDIASTINUM, AND HILAR REGION: No areas of suspicious hypermetabolic uptake. ABDOMEN AND PELVIS: No areas of suspicious hypermetabolic uptake. OSSEOUS STRUCTURES: No areas of suspicious hypermetabolic uptake. OTHER CT: Sosj-fs-pwnlaqjs calcified plaque bilateral carotid bulb level is redemonstrated. Mild/moderate underlying emphysematous change most prominent in the lung apices. Ascending aorta zurdo ures up to 4.0 cm in diameter axial image 112. There is coronary artery calcification which is noted marked underlying coronary artery disease. There is dextroconvex scoliosis centered in the mid lumbar spine. Facet arthropathy lower lumbar spin e is seen. There is moderate calcified plaque of the aorta extending into branch vessels. IMPRESSION: Primary neoplasm left supraglottic level identified. Nonspecific subcentimeter left subma ndibular lymph node. No metastatic disease is seen.
== END | disposition home or self-care (01) ==
LOC: RADPETMAIN 16:26
PROVIDERS: ATTEND Radiology Radiation Oncology
DX: C32.1 Malignant neoplasm of supraglottis (principal)
CPT/HCPCS: 78815

== ENCOUNTER 2019-05-12 10:11 | Inpatient (IN) | payer OTHER, MEDICAID ==
[2019-05-12] MEDS ORDERED: SODIUM CHLORIDE 0.9% 1,000 ML IV STA ×2 (10:41)
--- NOTE | 2019-05-12 10:53 | ED ---
Weakness HPI - General Source: patient, RN notes reviewed Mode of arrival: ambulatory Limitations: no limitations <Ashok Marcelino - Last Filed: 05/12/19 12:49> <Bob Cruz - Last Filed: 05/12/19 12:57> - General Chief complaint: Weakness Stated complaint: Hypotension Time Seen by Provider: 05/12/19 10:22 - History of Present Illness Initial comments: This a 63-year-old male presents emergency Department from, skin disorder for dehydration, weakness and hypotension. Patient is currently undergoing radiation for aryepiglottitis cancer. Patient reportedly has not been able to eat or drink anything for last few days has lost approximately 8-10 pounds in last week and 20 pounds in the last couple weeks. Patient sent here for PEG tube placement and rehydration. Patient's oncologist is recommending patient to see Dr. Gordon. Patient has no new complaints of pain denies any abdominal discomfort, chest pain, shortness of breath he does feel weak and rundown he's had some issues with constipation. (Ashok Marcelino) - Related Data Home Medications Medication Instructions Recorded Confirmed Lisinopril [Zestril] 20 mg PO HS 01/29/14 05/12/19 Metoprolol Tartrate [Lopressor] 12.5 mg PO BID 01/29/14 05/12/19 Multivitamin [Multivitamins] 1 tab PO DAILY 01/29/14 05/12/19 ALPRAZolam [Xanax] 0.5 mg PO Q8H PRN 05/12/19 05/12/19 Fluconazole [Diflucan] 100 mg PO DAILY 05/12/19 05/12/19 Morphine Sulfate ER [Ms Contin] 15 mg PO HS 05/12/19 05/12/19 Morphine Sulfate ER [Ms Contin] 30 mg PO DAILY 05/12/19 05/12/19 Allergies Allergy/AdvReac Type Severity Reaction Status Date / Time No Known Allergies Allergy Verified 02/27/19 08:26 Review of Systems ROS Other: All systems not noted in ROS Statement are negative. <Ashok Marcelino - Last Filed: 05/12/19 12:49> ROS Other: All systems not noted in ROS Statement are negative. <Bob Cruz - Last Filed: 05/12/19 12:57> ROS Statement: Those systems with pertinent positive or pertinent negative responses have been documented in the HPI. Past Medical History Past Medical History: Cancer, Heart Failure, Musculoskeletal Disorder Additional Past Medical History / Comment(s): CARDIOMYOPATHY. VARICOSE VEINS. CHRONIC BACK PAIN, DIFFICULTY WALKING DISTANCE OR SITTING.esphagheal/throat ca History of Any Multi-Drug Resistant Organisms: None Reported Past Surgical History: Back Surgery, Heart Catheterization Additional Past Surgical History / Comment(s): COLONOSCOPY. PAIN CLINIC PROC'S, BACK SURGERY AT [facility] IN [place]. Past Anesthesia/Blood Transfusion Reactions: Previous Problems w/ Anesthesia Additional Past Anesthesia/Blood Transfusion Reaction / Comment(s): WITH ONE PAIN PROC WAS AWAKE, PROCEDURE VERY PAINFUL Past Psychological History: No Psychological Hx Reported Smoking Status: Current every day smoker Past Alcohol Use History: None Reported Past Drug Use History: Marijuana - Past Family History Father Family Medical History: No Reported History <Ashok Marcelino - Last Filed: 05/12/19 12:49> General Exam Limitations: no limitations General appearance: alert, in no apparent distress Head exam: Present: atraumatic, normocephalic, normal inspection Eye exam: Present: normal appearance, PERRL, EOMI. Absent: scleral icterus, conjunctival injection, periorbital swelling ENT exam: Present: mucous membranes dry. Absent: mucous membranes moist Neck exam: Present: normal inspection. Absent: tenderness, meningismus, lymphadenopathy Respiratory exam: Present: normal lung sounds bilaterally. Absent: respiratory distress, wheezes, rales, rhonchi, stridor Cardiovascular Exam: Present: regular rate, normal rhythm, normal heart sounds. Absent: systolic murmur, diastolic murmur, rubs, gallop, clicks GI/Abdominal exam: Present: soft, normal bowel sounds. Absent: distended, tenderness, guarding, rebound, rigid <Ashok Marcelino M - Last Filed: 05/12/19 12:49> Course Vital Signs 05/12/19 05/12/19 05/12/19 10:14 10:39 11:03 Temperature 97.3 F L Pulse Rate 85 72 65 Respiratory 16 16 16 Rate Blood Pressure 79/51 88/61 82/60 O2 Sat by Pulse 98 98 96 Oximetry 05/12/19 05/12/19 11:30 12:00 Temperature Pulse Rate 61 65 Respiratory 14 16 Rate Blood Pressure 88/68 92/68 O2 Sat by Pulse 95 99 Oximetry Medical Decision Making - Lab Data Result diagrams: 05/12/19 10:55 05/12/19 10:55 <Ashok Marcelino - Last Filed: 05/12/19 12:49> - Lab Data Result diagrams: 05/12/19 10:55 05/12/19 10:55 <Bob Cruz - Last Filed: 05/12/19 12:57> - Medical Decision Making 63-year-old male presented to emergency department for weakness dehydration and malnourishment patient will be admitted for IV hydration, PEG tube placement and further evaluation. (Ashok Marcelino) Case was discussed with Dr. Rainey who recommends medical admission with IV fluids and likely would need a G-tube. Case was discussed also with practitioner Ashok. Chart and results reviewed. Case also discussed with Dr. Key, who will admit for this OR patient. (Bob Cruz) - Lab Data Lab Results 05/12/19 05/12/19 Range/Units 10:55 10:55 WBC 11.5 H (3.8-10.6) k/uL RBC 4.41 (4.30-5.90) m/uL Hgb 14.5 (13.0-17.5) gm/dL Hct 44.4 (39.0-53.0) % MCV 100.7 H (80.0-100.0) fL MCH 32.9 (25.0-35.0) pg MCHC 32.7 (31.0-37.0) g/dL RDW 13.5 (11.5-15.5) % Plt Count 206 (150-450) k/uL Neutrophils % 89 % Lymphocytes % 2 % Monocytes % 6 % Eosinophils % 1 % Basophils % 0 % Neutrophils # 10.2 H (1.3-7.7) k/uL Lymphocytes # 0.3 L (1.0-4.8) k/uL Monocytes # 0.7 (0-1.0) k/uL Eosinophils # 0.2 (0-0.7) k/uL Basophils # 0.0 (0-0.2) k/uL Sodium 135 L (137-145) mmol/L Potassium 5.4 H (3.5-5.1) mmol/L Chloride 94 L (98-107) mmol/L Carbon Dioxide 25 (22-30) mmol/L Anion Gap 16 mmol/L BUN 28 H (9-20) mg/dL Creatinine 1.20 (0.66-1.25) mg/dL Est GFR (CKD-EPI)AfAm 74 (>60 ml/min/1.73 sqM) Est GFR (CKD-EPI)NonAf 64 (>60 ml/min/1.73 sqM) Glucose 83 (74-99) mg/dL Calcium 10.0 (8.4-10.2) mg/dL Magnesium 2.2 (1.6-2.3) mg/dL Total Bilirubin 0.6 (0.2-1.3) mg/dL AST 29 (17-59) U/L ALT 24 (21-72) U/L Alkaline Phosphatase 82 (38-126) U/L Creatine Kinase 175 H (55-170) U/L Total Protein 7.1 (6.3-8.2) g/dL Albumin 4.1 (3.5-5.0) g/dL Disposition <Ashok Marcelino - Last Filed: 05/12/19 12:49> <Bob Cruz - Last Filed: 05/12/19 12:57> Clinical Impression: Dehydration, Weight loss, Malnourished, Failure to thrive Disposition: ADMITTED IP TO THIS HOSP Condition: Serious Referrals: [facility],Clinic [Primary Care Provider] - 1-2 days
[2019-05-12 11:55] LABS: Basophils % (A) 0 %; Eosinophils # (A) 0.2 k/uL (0-0.7); Eosinophils % (A) 1 %; HCT 44.4 % (39.0-53.0); HGB 14.5 gm/dL (13.0-17.5); Lymphocytes # (A) 0.3 k/uL (1.0-4.8); Lymphocytes % (A) 2 %; MCH 32.9 pg (25.0-35.0); MCHC 32.7 g/dL (31.0-37.0); MCV 100.7 fL (80.0-100.0); Mean Platelet Volume 8.5; Monocytes # (A) 0.7 k/uL (0-1.0); Monocytes % (A) 6 %; Neutrophils # (A) 10.2 k/uL (1.3-7.7); Neutrophils % (A) 89 %; Platelet Count 206 k/uL (150-450); RBC 4.41 m/uL (4.30-5.90); RDW 13.5 % (11.5-15.5); WBC 11.5 k/uL (3.8-10.6)
[2019-05-12 12:10] LABS: Albumin 4.1 g/dL (3.5-5.0); Magnesium 2.2 mg/dL (1.6-2.3); Potassium 5.4 mmol/L (3.5-5.1); Total Bilirubin 0.6 mg/dL (0.2-1.3); Total Protein 7.1 g/dL (6.3-8.2)
[2019-05-12] MEDS ORDERED: NALOXONE 0.4 MG/ML 1 ML VIAL IV PRN (12:50)
[2019-05-12] MEDS: SODIUM CHLORIDE 0.9% 1,000 ML IV SCH (13:05)
[2019-05-12] MEDS ORDERED: LACTULOSE 20 GM/30 ML CUP PO PRN (14:33)
--- NOTE | 2019-05-12 16:48 | P.GSCN ---
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 Patient describes inability to eat anything of significance in the last 3-5 days and over the last 2 days or so has not been able to drink. Presents to the Hospital dehydrated. Some confusion. Describes being constipated recently. We were consulted for PEG tube placement. Review of Systems The patient denies any acute changes in vision or hearing, no chest pain or shor tness of breath, no dysuria or hematuria, no headache, no runny nose, no rectal bleeding or melena, no unexplained weight loss Past Medical History Past Medical History: Cancer, Heart Failure, Musculoskeletal Disorder Additional Past Medical History / Comment(s): CARDIOMYOPATHY. VARICOSE VEINS. CHRONIC BACK PAIN, DIFFICULTY WALKING DISTANCE OR SITTING.esphagheal/throat ca History of Any Multi-Drug Resistant Organisms: None Reported Past Surgical History: Back Surgery, Heart Catheterization Additional Past Surgical History / Comment(s): COLONOSCOPY. PAIN CLINIC PROC'S, BACK SURGERY AT [facility] [place]. Past Anesthesia/Blood Transfusion Reactions: Previous Problems w/ Anesthesia Additional Past Anesthesia/Blood Transfusion Reaction / Comm: WITH ONE PAIN PROC WAS AWAKE, PROCEDURE VERY PAINFUL Past Psychological History: No Psychological Hx Reported Smoking Status: Current every day smoker Past Alcohol Use History: None Reported Additional Past Alcohol Use History / Comment(s): SMOKES 1 PPD., SMOKING SINCE AGE 14. DRINKS 2 BEERS DAILY. Past Drug Use History: Marijuana Additional Drug Use History / Comment(s): CURRENT MARIJUANA USE DAILY-INSTRUCTED TO REFRAIN FROM USE FOR AT LEAST 24 HOURS PRIOR TO PROCEDURE - Past Family History Father Family Medical History: No Reported History Medications and Allergies Home Medications Medication Instructions Recorded Confirmed Type Lisinopril [Zestril] 20 mg PO HS 01/29/14 05/12/19 History Metoprolol Tartrate [Lopressor] 12.5 mg PO BID 01/29/14 05/12/19 History Multivitamin [Multivitamins] 1 tab PO DAILY 01/29/14 05/12/19 History ALPRAZolam [Xanax] 0.5 mg PO Q8H PRN 05/12/19 05/12/19 History Fluconazole [Diflucan] 100 mg PO DAILY 05/12/19 05/12/19 History Morphine Sulfate ER [Ms Contin] 15 mg PO HS 05/12/19 05/12/19 History Morphine Sulfate ER [Ms Contin] 30 mg PO DAILY 05/12/19 05/12/19 History Allergies Allergy/AdvReac Type Severity Reaction Status Date / Time No Known Allergies Allergy Verified 02/27/19 08:26 Surgical - Exam Vital Signs Temp Pulse Resp BP Pulse Ox 97.3 F L 85 16 79/51 98 05/12/19 10:14 05/12/19 10:14 05/12/19 10:14 05/12/19 10:14 05/12/19 10:14 Physical exam: General: Well-developed, somewhat malnourished appearing HEENT: Normocephalic, sclerae nonicteric head and neck hyperemia from recent radiation Abdomen: Nontender, nondistended Extremities: No edema Neuro: Alert and oriented Results - Labs 05/12/19 10:55 05/12/19 10:55 Abnormal Lab Results - Last 24 Hours (Table) 05/12/19 05/12/19 Range/Units 10:55 10:55 WBC 11.5 H (3.8-10.6) k/uL MCV 100.7 H (80.0-100.0) fL Neutrophils # 10.2 H (1.3-7.7) k/uL Lymphocytes # 0.3 L (1.0-4.8) k/uL Sodium 135 L (137-145) mmol/L Potassium 5.4 H (3.5-5.1) mmol/L Chloride 94 L (98-107) mmol/L BUN 28 H (9-20) mg/dL Creatine Kinase 175 H (55-170) U/L Diabetes panel 05/12/19 Range/Units 10:55 Sodium 135 L (137-145) mmol/L Potassium 5.4 H (3.5-5.1) mmol/L Chloride 94 L (98-107) mmol/L Carbon Dioxide 25 (22-30) mmol/L BUN 28 H (9-20) mg/dL Creatinine 1.20 (0.66-1.25) mg/dL Glucose 83 (74-99) mg/dL Calcium 10.0 (8.4-10.2) mg/dL AST 29 (17-59) U/L ALT 24 (21-72) U/L Alkaline Phosphatase 82 (38-126) U/L Total Protein 7.1 (6.3-8.2) g/dL Albumin 4.1 (3.5-5.0) g/dL Calcium panel 05/12/19 Range/Units 10:55 Calcium 10.0 (8.4-10.2) mg/dL Albumin 4.1 (3.5-5.0) g/dL Pituitary panel 05/12/19 Range/Units 10:55 Sodium 135 L (137-145) mmol/L Potassium 5.4 H (3.5-5.1) mmol/L Chloride 94 L (98-107) mmol/L Carbon Dioxide 25 (22-30) mmol/L BUN 28 H (9-20) mg/dL Creatinine 1.20 (0.66-1.25) mg/dL Glucose 83 (74-99) mg/dL Calcium 10.0 (8.4-10.2) mg/dL Adrenal panel 05/12/19 Range/Units 10:55 Sodium 135 L (137-145) mmol/L Potassium 5.4 H (3.5-5.1) mmol/L Chloride 94 L (98-107) mmol/L Carbon Dioxide 25 (22-30) mmol/L BUN 28 H (9-20) mg/dL Creatinine 1.20 (0.66-1.25) mg/dL Glucose 83 (74-99) mg/dL Calcium 10.0 (8.4-10.2) mg/dL Total Bilirubin 0.6 (0.2-1.3) mg/dL AST 29 (17-59) U/L ALT 24 (21-72) U/L Alkaline Phosphatase 82 (38-126) U/L Total Protein 7.1 (6.3-8.2) g/dL Albumin 4.1 (3.5-5.0) g/dL Assessment and Plan (1) Malnourished Narrative/Plan: Patient with protein calorie malnutrition and dehydration along with ongoing dysphagia. We'll plan EGD with PEG tube placement at this time. Schedule for tomorrow or the following day depending on the patient's response to IV resuscitation. Current Visit: Yes Status: Acute Code(s): E46 - UNSPECIFIED PROTEIN-CALORIE MALNUTRITION SNOMED Code(s): 85644371
--- NOTE | 2019-05-12 17:46 | P.HPIM ---
History of Present Illness 63-year-old pleasant gentleman was a sent in from my [facility]ation oncology as patient is severely dehydrated unable to eat dysphagia. Patient does have epiglottitis cancer. Patient has been constipated patient is a morphine for pain. Patient appears to have significant dysphagia and throat discomfort from radiation therapy and radiation used to inflammation. Patient did lose 20 pounds in last couple weeks. Patient has elevated serum creatinine to 1.2 baseline should be below 0.5 patient has very low BMI and low muscle mass. P atient is constipated although did denied any nausea vomiting. Patient is on Diflucan at this time.patient has elevated serum potassium secondary to acute renal failurethe patient is quite lethargic fatigued unable to function well at home Review of Systems REVIEW OF SYSTEMS: CONSTITUTIONAL:as mentioned in HPI HEENT: No recent visual problems or hearing problems. Denied any sore throat. CARDIOVASCULAR: No chest pain, orthopnea, PND, no palpitations, no syncope. PULMONARY: No shortness of breath, no cough, no hemoptysis. GASTROINTESTINAL: No diarrhea, no nausea, no vomiting, no abdominal pain. NEUROLOGICAL: No headaches, no weakness, no numbness. HEMATOLOGICAL: Denies any bleeding or petechiae. GENITOURINARY: Denies any burning micturition, frequency, or urgency. MUSCULOSKELETAL/RHEUMATOLOGICAL: Denies any joint pain, swelling, or any muscle pain. ENDOCRINE: Denies any polyuria or polydipsia. The rest of the 14-point review of systems is negative. Past Medical History Past Medical History: Cancer, Heart Failure, Musculoskeletal Disorder Additional Past Medical History / Comment(s): CARDIOMYOPATHY. VARICOSE VEINS. CHRONIC BACK PAIN, DIFFICULTY WALKING DISTANCE OR SITTING.esphagheal/throat ca History of Any Multi-Drug Resistant Organisms: None Reported Past Surgical History: Back Surgery, Heart Catheterization Additional Past Surgical History / Comment(s): COLONOSCOPY. PAIN CLINIC PROC'S, BACK SURGERY AT [facility] IN [place]. Past Anesthesia/Blood Transfusion Reactions: Previous Problems w/ Anesthesia Additional Past Anesthesia/Blood Transfusion Reaction / Comment(s): WITH ONE PAIN PROC WAS AWAKE, PROCEDURE VERY PAINFUL Past Psychological History: No Psychological Hx Reported Smoking Status: Current every day smoker Past Alcohol Use History: None Reported Additional Past Alcohol Use History / Comment(s): SMOKES 1 PPD., SMOKING SINCE AGE 14. DRINKS 2 BEERS DAILY. Past Drug Use History: Marijuana Additional Drug Use History / Comment(s): CURRENT MARIJUANA USE DAILY-INSTRUCTED TO REFRAIN FROM USE FOR AT LEAST 24 HOURS PRIOR TO PROCEDURE - Past Family History Father Family Medical History: No Reported History Medications and Allergies Home Medications Medication Instructions Recorded Confirmed Type Lisinopril [Zestril] 20 mg PO HS 01/29/14 05/12/19 History Metoprolol Tartrate [Lopressor] 12.5 mg PO BID 01/29/14 05/12/19 History Multivitamin [Multivitamins] 1 tab PO DAILY 01/29/14 05/12/19 History ALPRAZolam [Xanax] 0.5 mg PO Q8H PRN 05/12/19 05/12/19 History Fluconazole [Diflucan] 100 mg PO DAILY 05/12/19 05/12/19 History Morphine Sulfate ER [Ms Contin] 15 mg PO HS 05/12/19 05/12/19 History Morphine Sulfate ER [Ms Contin] 30 mg PO DAILY 05/12/19 05/12/19 History Allergies Allergy/AdvReac Type Severity Reaction Status Date / Time No Known Allergies Allergy Verified 02/27/19 08:26 Physical Exam Vitals: Vital Signs Temp Pulse Pulse Resp BP BP Pulse Ox 05/12/19 15:00 97.6 F 74 20 110/73 100 05/12/19 13:30 98.1 F 68 13 99/69 99 05/12/19 12:00 65 16 92/68 99 05/12/19 11:30 61 14 88/68 95 05/12/19 11:03 65 16 82/60 96 05/12/19 10:39 72 16 88/61 98 05/12/19 10:14 97.3 F L 85 16 79/51 98 Intake and Output 05/12/19 05/12/19 05/12/19 06:59 14:59 22:59 Other: Voiding Method Urinal Weight 53.524 kg PHYSICAL EXAMINATION: GENERAL: The patient is alert and oriented x3, patient appears to be lethargic, thin built. HEENT: Pupils are round and equally reacting to light. EOMI. No scleral icterus. No conjunctival pallor. Normocephalic, atraumatic. No pharyngeal erythema. No thyromegaly. CARDIOVASCULAR: S1 and S2 present. No murmurs, rubs, or gallops. PULMONARY: Chest is clear to auscultation, no wheezing or crackles. ABDOMEN: Soft, nontender, nondistended, normoactive bowel sounds. No palpable organomegaly. MUSCULOSKELETAL: No joint swelling or deformity. EXTREMITIES: No cyanosis, clubbing, or pedal edema. NEUROLOGICAL: Gross neurological examination did not reveal any focal deficits. SKIN: as significant guerrero around the neck area secondary to radiation Results CBC & Chem 7: 05/12/19 10:55 05/12/19 10:55 Labs: Abnormal Lab Results - Last 24 Hours (Table) 05/12/19 05/12/19 Range/Units 10:55 10:55 WBC 11.5 H (3.8-10.6) k/uL MCV 100.7 H (80.0-100.0) fL Neutrophils # 10.2 H (1.3-7.7) k/uL Lymphocytes # 0.3 L (1.0-4.8) k/uL Sodium 135 L (137-145) mmol/L Potassium 5.4 H (3.5-5.1) mmol/L Chloride 94 L (98-107) mmol/L BUN 28 H (9-20) mg/dL Creatine Kinase 175 H (55-170) U/L Thrombosis Risk Factor Assmnt - Choose All That Apply Any of the Below Risk Factors Present?: Yes Each Factor Represents 1 point: Varicose veins Other Risk Factors: Yes Each Risk Factor Represents 2 Points: Age 61-74 years Other congenital or acquired thrombophilia - If yes, enter type in comment: No Thrombosis Risk Factor Assessment Total Risk Factor Score: 3 Thrombosis Risk Factor Assessment Level: Moderate Risk Assessment and Plan Plan: -moderate protein calorie malnutrition and dysphagia and dehydration: Secondary to radiation therapy to the the epiglottis. Patient may have some mucositis as well from that and patient will be evaluated for PEG tube placement patient was started on IV fluids -Acute renal failure secondary to severe intravascular depletion for which patient will be started on IV fluids -Constipation secondary to opiates for pain which will be continued but patient was started on lactulose no evidence of bowel obstruction at this time although patient does have sludge bowel sounds -Epiglottic cancer for which patient sees receiving. Radiation therapy which apparently with a curative intent -Hyperkalemia secondary to acute renal failure expected to improve with IV fluids -severegeneralized weakness: From cancer cachexia and a poor -Nicotine abuse: Counseling was provided -due to prophylaxis with serpiginous heparin GI prophylaxis with Pepcid
[2019-05-12 19:29] LABS: Amorphous Sediment,Urine Rare /hpf; Appearance,Urine Cloudy (Clear); Bilirubin,Urine 1+ (Negative); Blood,Urine Negative (Negative); Calcium Oxalate Crystals,Urine Rare /hpf; Color,Urine Yellow; Glucose,Urine (UA) Negative (Negative); Hyaline Casts,Urine 87 /lpf (0-2); Ketones,Urine 2+ (Negative); Leukocyte Esterase,Urine Negative (Negative); Mucus,Urine Many /hpf; Nitrite,Urine Negative (Negative); PH, Urine 5.5 (5.0-8.0); Protein,Urine 1+ (Negative); RBC,Urine 2 /hpf (0-5)
[2019-05-12] MEDS: FAMOTIDINE 20 MG TAB PO SCH (20:25)
[2019-05-12] MEDS: ALPRAZolam 0.5 MG TAB PO PRN (20:33)
[2019-05-12] MEDS ORDERED: MORPHINE SULFATE ER 15 MG TABLET PO SCH (21:00)
[2019-05-12] MEDS: HYDROcodone/APAP 10-325MG 1 EACH TAB PO PRN (22:31)
[2019-05-12] MEDS: MORPHINE SULFATE ER 15 MG TABLET PO SCH (22:32)
[2019-05-12] MEDS: HEPARIN SODIUM,PORCINE 5,000 UNIT/ML 1 ML VIAL SQ SCH (22:33)
[2019-05-12] MEDS: METOPROLOL TARTRATE 12.5 MG TAB PO SCH (22:33)
[2019-05-13] MEDS: SODIUM CHLORIDE 0.9% 1,000 ML IV SCH ×2 (05:46→15:50)
[2019-05-13] MEDS: HEPARIN SODIUM,PORCINE 5,000 UNIT/ML 1 ML VIAL SQ SCH ×2 (07:12→21:13)
[2019-05-13] MEDS: METOPROLOL TARTRATE 12.5 MG TAB PO SCH ×2 (07:12→21:12)
[2019-05-13] MEDS: FAMOTIDINE 20 MG TAB PO SCH ×2 (07:12→12:02)
[2019-05-13] MEDS: MORPHINE SULFATE ER 30 MG TABLET PO SCH (07:12)
[2019-05-13] MEDS ORDERED: IV FLUID CONTINUATION 100 ML IV ONE (08:48)
--- NOTE | 2019-05-13 08:51 | P.PN ---
Progress Note - Text Progress Note Date: 05/13/19 Patient doing better today. Complaining of more sore throat and difficulty talking. Dysphagia persists. He is agreeable to PEG tube placement at this time. Risks of bleeding, infection, bowel injury, gastric injury, fistula reviewed. He understands and wishes to proceed.
[2019-05-13] MEDS ORDERED: PROPOFOL 10 MG/ML 20 ML VIAL IV ONE (08:52)
[2019-05-13] MEDS ORDERED: LACTATED RINGERS 1,000 ML IV ONE (08:53)
--- NOTE | 2019-05-13 09:12 | P.PCN ---
Date of Procedure: 05/13/19 Procedure(s) Performed: PREOPERATIVE DIAGNOSIS: Malnutrition, dysphagia POSTOPERATIVE DIAGNOSIS: Same PROCEDURE: EGD with PEG tube placement SURGEON: Jessica EBL: Minimal ANESTHESIA: Sedation COMPLICATIONS: None OPERATIVE PROCEDURE: The patient was placed in the supine position on the endoscopy table. The patient was sedated per anesthesia that time. The Olympus gastroscope was inserted into the oropharynx and passed under direct visualization to the region of the duodenum. No obstruction was seen. The pylorus was widely patent. The stomach was carefully inspected. The stomach was fully insufflated with air. The abdominal wall was inspected. The light was seen shining through the abdominal wall in the left upper quadrant. This site was chosen for PEG tube placement. The area was prepped in the usual sterile fashion. This area was then localized with lidocaine. A small vertical incision was made using the scalpel. The Seldinger needle was advanced into the lumen of the stomach the wire was advanced. The wire was grasped with an endoscopic snare. The wire was pulled through the oropharynx. The catheter was then threaded over the guidewire and the guidewire and catheter were pulled anteriorly until the hub of the PEG tube catheter was seated against the anterior wall the stomach. The circular bolster was applied and tightened down to 2 cm. The endoscope was then readvanced into the stomach. There was no evidence of any bleeding and there was appropriate tightness on the bolster. The catheter was cut appropriately. The dual port feeding adapter was applied. DISPOSITION: Stable to recovery room
[2019-05-13] MEDS: FLUCONAZOLE 100 MG TAB PO SCH (09:23)
[2019-05-13] MEDS: HYDROmorphone 1 MG/ML 1 ML SYRINGE IVP PRN ×3 (09:36→19:00)
[2019-05-13] MEDS: HYDROcodone/APAP 10-325MG 1 EACH TAB PO PRN (12:02)
[2019-05-13] MEDS ORDERED: MORPHINE SULFATE 4 MG/ML SYRINGE IVP PRN (14:38)
[2019-05-13] MEDS: HYOSCYAMINE ORAL DROPS 1.875 MG/15 ML BOTTLE PO PRN (14:45)
--- NOTE | 2019-05-13 16:19 | P.PN ---
Subjective Patient is a very bladder cancer who is undergoing radiation therapy came in with the severe dysphagia significant inflammation of the throat from radiation therapy along with dehydration. Patient is receiving IV fluids and do not have any labs available patient had a PEG tube placement today. Patient is complaining of severe pain in the abdomen. Patient was started on Dilaudid by general surgery and patient is on multiple other opiates by mouth. Constitutional: Denied any fatigue denied any fever. Cardio vascular: denied any chest pain, palpitations Gastrointestinal denied any nausea vomiting Pulmonary: Denied any shortness of breath cough Neurologic denied any new focal deficits All inpatient medications were reviewed and appropriate changes in these medications as dictated in the interval history and assessment and plan. Objective - Vital Signs Vital signs: Vital Signs Temp 97.7 F 05/13/19 15:00 Pulse 67 05/13/19 15:00 Resp 16 05/13/19 15:00 BP 121/77 05/13/19 15:00 Pulse Ox 97 05/13/19 15:00 Intake & Output 05/12/19 05/13/19 05/13/19 18:59 06:59 18:59 Intake Total 500 Balance 500 Weight 53.524 kg 53.5 kg Intake: IV 500 Other: Voiding Method Urinal Urinal # Voids 1 - Exam PHYSICAL EXAMINATION: GENERAL: The patient is alert and oriented x3, patient appears to be lethargic, thin built. HEENT: Pupils are round and equally reacting to light. EOMI. No scleral icterus. No conjunctival pallor. Normocephalic, atraumatic. No pharyngeal erythema. No thyromegaly. CARDIOVASCULAR: S1 and S2 present. No murmurs, rubs, or gallops. PULMONARY: Chest is clear to auscultation, no wheezing or crackles. ABDOMEN: Soft, nontender, nondistended, normoactive bowel sounds. No palpable organomegaly. MUSCULOSKELETAL: No joint swelling or deformity. EXTREMITIES: No cyanosis, clubbing, or pedal edema. NEUROLOGICAL: Gross neurological examination did not reveal any focal deficits. SKIN: as significant guerrero around the neck area secondary to radiation - Labs CBC & Chem 7: 05/12/19 10:55 05/12/19 10:55 Labs: Abnormal Lab Results - Last 24 Hours (Table) 05/12/19 Range/Units 19:10 Urine Protein 1+ H (Negative) Urine Ketones 2+ H (Negative) Urine Bilirubin 1+ H (Negative) Calcium Oxalate Crystal Rare H (None) /hpf Amorphous Sediment Rare H (None) /hpf Hyaline Casts 87 H (0-2) /lpf Urine Mucus Many H (None) /hpf Assessment and Plan Plan: -moderate protein calorie malnutrition and dysphagia and dehydration: Secondary to radiation therapy to the the epiglottis. 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 Radiation therapy which apparently with a curative intent -Hyperkalemia secondary to acute renal failure expected to improve with IV fluids -severegeneralized weakness: From cancer cachexia and a poor -Nicotine abuse: Counseling was provided -due to prophylaxis with heparin GI prophylaxis with Pepcid
[2019-05-13] MEDS: ALPRAZolam 0.5 MG TAB PO PRN (19:03)
[2019-05-13] MEDS: MORPHINE SULFATE ER 15 MG TABLET PO SCH (21:12)
[2019-05-14] MEDS: HYDROmorphone 1 MG/ML 1 ML SYRINGE IVP PRN ×4 (01:25→13:48)
[2019-05-14] MEDS: SODIUM CHLORIDE 0.9% 1,000 ML IV SCH ×2 (06:25→17:50)
[2019-05-14] MEDS: HYDROcodone/APAP 10-325MG 1 EACH TAB PO PRN ×2 (07:39→15:52)
[2019-05-14] MEDS: FLUCONAZOLE 100 MG TAB PO SCH (07:41)
[2019-05-14] MEDS: METOPROLOL TARTRATE 12.5 MG TAB PO SCH ×2 (07:43→20:29)
[2019-05-14] MEDS: FAMOTIDINE 20 MG TAB PO SCH (07:43)
[2019-05-14] MEDS: HEPARIN SODIUM,PORCINE 5,000 UNIT/ML 1 ML VIAL SQ SCH ×2 (07:43→20:29)
[2019-05-14] MEDS: HYOSCYAMINE ORAL DROPS 1.875 MG/15 ML BOTTLE PO PRN (07:57)
[2019-05-14] MEDS: MORPHINE SULFATE ER 30 MG TABLET PO SCH (08:04)
--- NOTE | 2019-05-14 09:09 | P.PN ---
Subjective Progress Note Date: 05/13/19 Principal diagnosis: dehydration, dysphagia 2/2 radiotherapy The patient is feeling better than prior to admission. PEG placed this AM. He reports he still has intermittent sore throat and some discomfort around the PEG-site. Voice is a bit more hoarse than usual as well. Objective - Vital Signs Vital signs: Vital Signs Temp 99.0 F 05/14/19 05:00 Pulse 67 05/14/19 05:00 Resp 18 05/14/19 05:00 BP 123/71 05/14/19 05:00 Pulse Ox 97 05/14/19 05:00 Intake & Output 05/13/19 05/14/19 05/14/19 18:59 06:59 18:59 Intake Total 500 Balance 500 Weight 53.5 kg 53.5 kg Intake: IV 500 Other: Voiding Method Urinal - Constitutional General appearance: Present: average body habitus. Absent: no acute distress - EENT Eyes: Present: EOMI, PERRLA ENT: Present: hearing grossly normal - Neck Neck: Present: other (moderate erythema bilaterally). 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 He has completed 33/35 planned radiation treatments. This past week he has been unable to swallow solid foods and became dehydrated. He was admitted for hydration and PEG to ensure adequate nutrition. 1. Head/neck cancer: Patient has high chance of cure. Currently having toxicity near the end of treatment. We will bring him down to complete his final treatments in house since his discharge may not be until this weekend. 2. Dysphagia: 2/2 radiotherapy - PEG for nutrition. Encourage continued swallowing of liquids so that the muscles stay in use. Do not want to risk PEG dependency. Time with Patient: Less than 30
[2019-05-14 09:59] LABS: African American GFR (CKD) >90 (>60 ml/min/1.73 sqM); Anion Gap 15 mmol/L; Blood Urea Nitrogen 12 mg/dL (9-20); Calcium 9.2 mg/dL (8.4-10.2); Carbon Dioxide 20 mmol/L (22-30); Chloride 102 mmol/L (98-107); Glucose 64 mg/dL (74-99); Potassium 4.5 mmol/L (3.5-5.1); Sodium 137 mmol/L (137-145)
[2019-05-14 12:27] LABS: Glucose,Whole Blood 77 mg/dL (75-99)
--- NOTE | 2019-05-14 15:59 | P.PN ---
Subjective Progress Note Date: 05/14/19 Principal diagnosis: Dysphagia Patient complaining of pain in the throat and also at the PEG tube site today. Tolerating tube feeds at 20 per hour. No nausea or vomiting. Objective - Vital Signs Vital signs: Vital Signs Temp 98.9 F 05/14/19 12:08 Pulse 69 05/14/19 12:08 Resp 16 05/14/19 12:08 BP 110/66 05/14/19 12:08 Pulse Ox 97 05/14/19 12:08 Intake & Output 05/13/19 05/14/19 05/14/19 18:59 06:59 18:59 Intake Total 500 Balance 500 Weight 53.5 kg 53.5 kg Intake: IV 500 Other: Voiding Method Urinal - Exam Abdomen: Soft, nondistended, mild tenderness at PEG tube site - Labs CBC & Chem 7: 05/12/19 10:55 05/14/19 09:13 Labs: Abnormal Lab Results - Last 24 Hours (Table) 05/14/19 Range/Units 09:13 Carbon Dioxide 20 L (22-30) mmol/L Creatinine 0.65 L (0.66-1.25) mg/dL Glucose 64 L (74-99) mg/dL Assessment and Plan (1) Malnourished Narrative/Plan: Will add Toradol for pain control. Continue increasing tube feeds as tolerated. Possible discharge tomorrow or Saturday. Current Visit: Yes Status: Acute Code(s): E46 - UNSPECIFIED PROTEIN-CALORIE MALNUTRITION SNOMED Code(s): 23063848
[2019-05-14] MEDS ORDERED: HYDROmorphone 1 MG/ML 1 ML SYRINGE IVP PRN (16:10)
--- NOTE | 2019-05-14 16:11 | P.PN ---
Subjective Patient is a very bladder cancer who is undergoing radiation therapy came in with the severe dysphagia significant inflammation of the throat from radiation therapy along with dehydration. Patient is receiving IV fluids and do not have any labs available patient had a PEG tube placement today. Patient is complaining of severe pain in the abdomen. Patient was started on Dilaudid by general surgery and patient is on multiple other opiates by mouth.\ 05/14/2019 Patient was started on the tube feedings. Patient is still complaining of severe abdominal pain patient was started on Toradol will try and avoid Dilaudid patient is on multiple other opiates and still constipated Constitutional: Denied any fatigue denied any fever. Cardio vascular: denied any chest pain, palpitations Gastrointestinal denied any nausea vomiting Pulmonary: Denied any shortness of breath cough Neurologic denied any new focal deficits All inpatient medications were reviewed and appropriate changes in these medications as dictated in the interval history and assessment and plan. Objective - Vital Signs Vital signs: Vital Signs Temp 98.9 F 05/14/19 12:08 Pulse 69 05/14/19 12:08 Resp 16 05/14/19 12:08 BP 110/66 05/14/19 12:08 Pulse Ox 97 05/14/19 12:08 Intake & Output 05/13/19 05/14/19 05/14/19 18:59 06:59 18:59 Intake Total 500 Balance 500 Weight 53.5 kg 53.5 kg Intake: IV 500 Other: Voiding Method Urinal - Exam PHYSICAL EXAMINATION: GENERAL: The patient is alert and oriented x3, patient appears to be lethargic, thin built. HEENT: Pupils are round and equally reacting to light. EOMI. No scleral icterus. No conjunctival pallor. Normocephalic, atraumatic. No pharyngeal erythema. No thyromegaly. CARDIOVASCULAR: S1 and S2 present. No murmurs, rubs, or gallops. PULMONARY: Chest is clear to auscultation, no wheezing or crackles. ABDOMEN: Soft, nontender, nondistended, normoactive bowel sounds. No palpable organomegaly. Patient has a PEG tube in place MUSCULOSKELETAL: No joint swelling or deformity. EXTREMITIES: No cyanosis, clubbing, or pedal edema. NEUROLOGICAL: Gross neurological examination did not reveal any focal deficits. SKIN: as significant guerrero around the neck area secondary to radiation - Labs CBC & Chem 7: 05/12/19 10:55 05/14/19 09:13 Labs: Abnormal Lab Results - Last 24 Hours (Table) 05/14/19 Range/Units 09:13 Carbon Dioxide 20 L (22-30) mmol/L Creatinine 0.65 L (0.66-1.25) mg/dL Glucose 64 L (74-99) mg/dL Assessment and Plan Plan: -moderate protein calorie malnutrition and dysphagia and dehydration: Secondary to radiation therapy to the the epiglottis. 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 Radiation therapy which apparently with a curative intent -Hyperkalemia secondary to acute renal failure expected to improve with IV fluids -severegeneralized weakness: From cancer cachexia and a poor -Nicotine abuse: Counseling was provided -due to prophylaxis with heparin GI prophylaxis with Pepcid
[2019-05-14] MEDS: KETOROLAC 30 MG/ML 1 ML VIAL IVP SCH (16:47)
[2019-05-14] MEDS ORDERED: MORPHINE SULFATE IR 15 MG TABLET PO PRN (18:06)
[2019-05-14] MEDS: ALPRAZolam 0.5 MG TAB PO PRN (18:06)
[2019-05-14 18:09] LABS: Glucose,Whole Blood 109 mg/dL (75-99)
[2019-05-15 00:02] LABS: Glucose,Whole Blood 144 mg/dL (75-99)
[2019-05-15] MEDS: MORPHINE ORAL SOLN 10 MG/5 ML CUP PEG/G-TUBE SCH ×3 (00:16→11:17)
[2019-05-15] MEDS: KETOROLAC 30 MG/ML 1 ML VIAL IVP SCH ×3 (00:16→11:16)
[2019-05-15 06:12] LABS: Glucose,Whole Blood 132 mg/dL (75-99)
[2019-05-15] MEDS: HEPARIN SODIUM,PORCINE 5,000 UNIT/ML 1 ML VIAL SQ SCH (08:02)
[2019-05-15] MEDS: METOPROLOL TARTRATE 12.5 MG TAB PO SCH (08:02)
[2019-05-15] MEDS: FAMOTIDINE 20 MG TAB PO SCH (08:02)
[2019-05-15] MEDS: SODIUM CHLORIDE 0.9% 1,000 ML IV SCH (08:03)
[2019-05-15] MEDS: FLUCONAZOLE 100 MG TAB PO SCH (08:04)
--- NOTE | 2019-05-15 11:44 | P.PN ---
<Gabriela Pearce - Last Filed: 05/15/19 11:41> Subjective Progress Note Date: 05/15/19 CHIEF COMPLAINT: dysphagia HISTORY OF PRESENT ILLNESS: Patient is status post EGD with PEG tube placement performed on 05/13/2019. Patient has been tolerating tube feedings well. Tube feedings currently off as patient recently returned from radiation. Reports mild tenderness to PEG tube site. PHYSICAL EXAM: VITAL SIGNS: Reviewed. GENERAL: Well-developed in no acute distress. HEENT: No sclera icterus. Extraocular movements grossly intact. Moist buccal mucosa. Head is atraumatic, normocephalic. ABDOMEN: Soft. Nondistended. Mild tenderness at PEG tube site. NEUROLOGIC: Alert and oriented. Cranial nerves II through XII grossly intact. ASSESSMENT: 1. Dysphasia, status post EGD with PEG tube placement PLAN: 1. Continue tube feedings as tolerated 2. Stable from a surgical standpoint Nurse practitioner note has been reviewed by physician. Signing provider agrees with the documented findings, assessment, and plan of care. Objective - Vital Signs Vital signs: Vital Signs Temp 98.4 F 05/15/19 05:00 Pulse 90 05/15/19 05:00 Resp 18 05/15/19 05:00 BP 127/80 05/15/19 05:00 Pulse Ox 92 L 05/15/19 05:00 Intake & Output 05/14/19 05/15/19 05/15/19 18:59 06:59 18:59 Intake Total 0 Balance 0 Weight 55 kg Intake: Oral 0 Other: # Voids 2 2 - Labs CBC & Chem 7: 05/12/19 10:55 05/14/19 09:13 Labs: Abnormal Lab Results - Last 24 Hours (Table) 05/14/19 05/14/19 05/15/19 Range/Units 18:05 23:58 06:10 POC Glucose (mg/dL) 109 H 144 H 132 H (75-99) mg/dL <Henry Lopez - Last Filed: 05/15/19 17:11> Subjective As above. Patient doing well. Bolster loosened by 0.5 cm. Stable for discharge. Objective - Vital Signs Vital signs: Vital Signs Temp 98.9 F 05/15/19 12:26 Pulse 65 05/15/19 12:26 Resp 16 05/15/19 12:26 BP 114/68 05/15/19 12:26 Pulse Ox 96 05/15/19 12:26 Intake & Output 05/14/19 05/15/19 05/15/19 18:59 06:59 18:59 Intake Total 0 Balance 0 Weight 55 kg 55 kg Intake: Oral 0 Other: # Voids 2 2 2 - Labs CBC & Chem 7: 05/12/19 10:55 05/14/19 09:13 Labs: Abnormal Lab Results - Last 24 Hours (Table) 05/14/19 05/14/19 05/15/19 Range/Units 18:05 23:58 06:10 POC Glucose (mg/dL) 109 H 144 H 132 H (75-99) mg/dL 05/15/19 Range/Units 12:24 POC Glucose (mg/dL) 147 H (75-99) mg/dL Assessment and Plan (1) Malnourished Current Visit: Yes Status: Acute Code(s): E46 - UNSPECIFIED PROTEIN-CALORIE MALNUTRITION SNOMED Code(s): 64873746
[2019-05-15 12:28] LABS: Glucose,Whole Blood 147 mg/dL (75-99)
[2019-05-15 13:01] VITALS: BMI 17.4
[2019-05-15 13:22] VITALS: BP 114/68; PULSE 65; RESP 16; TEMP 98.9
--- NOTE | 2019-05-15 15:45 | P.DS ---
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 Patient is being sent home with a supply of tube feedings to get him through the weekend until his delivery from the [facility]. History of present illness This is a 63-year-old male who was recently admitted with severe dysphasia with significant inflammation of the throat from radiation therapy along with dehyd ration and was closely monitored. Patient's current creatinine is 0.65 with a potassium of 4.5. Patient did receive a PEG tube and was starting on tube feedings. Surgery was following closely. Patient denies any chest pain, shortness of breath, or palpitations at this time. Patient is afebrile. Patient has been tolerating the tube feedings and advancing as tolerated to a goal of 50. Patient is also to follow-up with Dr. Chance for his remaining radiation treatments. Patient states that he is a little nervous about properly handling tube feedings and states that his is a biomedical engineering aide that will be helping. Patient reassured that nursing staff will instruct and educate on proper PEG tube care and how to administer tube feedings. Patient is currently stable with much improvement. Guarded prognosis. On exam vital signs are stable. Blood pressure is 114/68, pulse is 65, respirations are 16, temp is 98.9F, oxygen saturation is 96% on room air. Cardio S1 and S2 are normal. Respiratory system shows clear to auscultation. Abdomen is soft with positive bowel sounds in PEG tube noted. Nervous system shows no focal deficits. Please refer to medication reconciliation sheet for a list of medications. Patient Condition at Discharge: Serious Plan - Discharge Summary Discharge Rx Participant: No New Discharge Prescriptions: Continue Metoprolol Tartrate [Lopressor] 12.5 mg PO BID Lisinopril [Zestril] 20 mg PO HS Multivitamin [Multivitamins] 1 tab PO DAILY Fluconazole [Diflucan] 100 mg PO DAILY ALPRAZolam [Xanax] 0.5 mg PO Q8H PRN PRN Reason: Anxiety Morphine Sulfate ER [Ms Contin] 30 mg PO HS Morphine Sulfate ER [Ms Contin] 30 mg PO DAILY HYDROcodone/APAP 10-325MG [[place] 10-325] 1 tab PO Q8HR PRN PRN Reason: pain Discharge Medication List Lisinopril [Zestril] 20 mg PO HS 01/29/14 [History] Metoprolol Tartrate [Lopressor] 12.5 mg PO BID 01/29/14 [History] Multivitamin [Multivitamins] 1 tab PO DAILY 01/29/14 [History] ALPRAZolam [Xanax] 0.5 mg PO Q8H PRN 05/12/19 [History] Fluconazole [Diflucan] 100 mg PO DAILY 05/12/19 [History] HYDROcodone/APAP 10-325MG [[place] 10-325] 1 tab PO Q8HR PRN 05/12/19 [History] Morphine Sulfate ER [Ms Contin] 30 mg PO DAILY 05/12/19 [History] Morphine Sulfate ER [Ms Contin] 30 mg PO HS 05/12/19 [History] Follow up Appointment(s)/Referral(s): Henry Lopez MD [Medical Doctor] - 2 Weeks (PT would like to make appointments) Rohit Chance MD [STAFF PHYSICIAN] - 05/29/19 10:00 am (appointment previously made by PT) [facility] [Primary Care Provider] - 1-2 days Patient Instructions/Handouts: Dehydration (DC), Malnutrition (DC) Activity/Diet/Wound Care/Special Instructions: Recommend bolus tube feeding using 5 cans of Two Jared HN/24 hr to provide 1200 ml, 2400 kcal and 100 gm of protein with 840 ml free water. Pt will need an additional ~765 ml free water/day that can be consumed by mouth and through tube feeding flushes with a minimum of 30 ml before and after each bolus feeding. If pt not able to take liquids by mouth will need to flush with 75 ml of water before and after each bolus feeding. Please send patient with 5 days of tube feed at d/c. [facility] has mailed out the tube feed and should be delivered on Saturday. [facility] [phone] . Activity limited until follow-up Continue with tube feeds as discussed above Follow up with primary care provider this week Follow up with Dr. Chance Discharge Disposition: HOME WITH HOME HEALTH SERVICES
[2019-05-15] MEDS: HYDROcodone/APAP 10-325MG 1 EACH TAB PO PRN (16:35)
== END 2019-05-15 17:16 | disposition home health service (06) | DRG 641 ==
LOC: SUPCPDRO 10:11 → EC 10:11 → 3NMEDONC 12:58 → 4MS4W 13:12
PROVIDERS: ADMIT Internal Medicine; ATTEND Internal Medicine
PROC: 3E0G76Z Introduction of Nutritional Substance into Upper GI, Via Natural or Artificial Opening (ICD-10-PCS; 2019-05-13)
PROC: 0DJ08ZZ Inspection of Upper Intestinal Tract, Via Natural or Artificial Opening Endoscopic (ICD-10-PCS; 2019-05-13)
PROC: 0DH63UZ Insertion of Feeding Device into Stomach, Percutaneous Approach (ICD-10-PCS; principal; 2019-05-13 07:30)
DX: E44.0 Moderate protein-calorie malnutrition (principal); I42.9 Cardiomyopathy, unspecified; N17.9 Acute kidney failure, unspecified; R64 Cachexia; Z68.1 Body mass index [BMI] 19.9 or less, adult; C32.1 Malignant neoplasm of supraglottis; E86.0 Dehydration; E87.5 Hyperkalemia; Z71.6 Tobacco abuse counseling; F17.210 Nicotine dependence, cigarettes, uncomplicated; I50.9 Heart failure, unspecified; K59.03 Drug induced constipation; L98.9 Disorder of the skin and subcutaneous tissue, unspecified; R13.10 Dysphagia, unspecified; R47.02 Dysphasia; R62.7 Adult failure to thrive; T40.605A Adverse effect of unspecified narcotics, initial encounter; Y84.2 Radiological procedure and radiotherapy as the cause of abnormal reaction of the patient, or of later complication, without mention of misadventure at the time of the procedure; M54.9 Dorsalgia, unspecified; G89.29 Other chronic pain; E86.9 Volume depletion, unspecified
CPT/HCPCS: 36415; 43246; 77336; 77386; 80048; 80053; 81001; 82550; 83735; 85025; 96360; 96361; 99285

== ENCOUNTER 2019-05-21 15:27 | Observation (INO) | payer OTHER, MEDICAID ==
[2019-05-21] MEDS ORDERED: HYDROmorphone 0.5 MG/0.5 ML SYRINGE IVP STA (16:34)
--- NOTE | 2019-05-21 17:01 | ED ---
Abdominal Pain HPI - General Source: patient Mode of arrival: ambulatory Limitations: no limitations <Chuckie Carrera - Last Filed: 05/21/19 17:01> - General Source: RN notes reviewed, old records reviewed - History of Present Illness Complaint: abdominal pain (Severe anterior bowel pain at PEG tube site) -: hour(s) Location: epigastric Radiation: none Migration to: no migration Severity: severe Severity scale (1-10): 8 Quality: stabbing Consistency: constant Improves With: nothing Associated Symptoms: nausea <Chace Díaz - Last Filed: 05/26/19 11:07> - General Chief Complaint: Abdominal Pain Stated Complaint: Feeding tube complications Time Seen by Provider: 05/21/19 15:46 - History of Present Illness Initial Comments: This is a 63-year-old male the ER for evaluation presented today for evaluation of severe abdominal pain severe PEG tube site placement pain. Patient patient times one week. PEG tube was working fine today with a little bolus with does not appear to be working currently. Patient has no active nausea vomiting just like anything a bowel movement no fevers. Just severe abdominal pain (Chace Díaz) - Related Data Home Medications Medication Instructions Recorded Confirmed Lisinopril [Zestril] 20 mg PO HS 01/29/14 05/21/19 Metoprolol Tartrate [Lopressor] 12.5 mg PO BID 01/29/14 05/21/19 Multivitamin [Multivitamins] 1 tab PO DAILY 01/29/14 05/21/19 ALPRAZolam [Xanax] 0.5 mg PO Q8H PRN 05/12/19 05/21/19 HYDROcodone/APAP 10-325MG [[place] 1 tab PO Q8HR PRN 05/12/19 05/21/19 10-325] Morphine Sulfate ER [Ms Contin] 30 mg PO DAILY 05/12/19 05/21/19 Morphine Sulfate ER [Ms Contin] 30 mg PO HS 05/12/19 05/21/19 Allergies Allergy/AdvReac Type Severity Reaction Status Date / Time No Known Allergies Allergy Verified 05/21/19 16:00 Review of Systems ROS Other: All systems not noted in ROS Statement are negative. <Chuckie Carrera - Last Filed: 05/21/19 17:01> ROS Other: All systems not noted in ROS Statement are negative. <Chace Díaz - Last Filed: 05/26/19 11:07> ROS Statement: Those systems with pertinent positive or pertinent negative responses have been documented in the HPI. Past Medical History Past Medical History: Cancer, Heart Failure, Musculoskeletal Disorder Additional Past Medical History / Comment(s): CARDIOMYOPATHY. VARICOSE VEINS. CHRONIC BACK PAIN, DIFFICULTY WALKING DISTANCE OR SITTING.esphagheal/throat ca History of Any Multi-Drug Resistant Organisms: None Reported Past Surgical History: Back Surgery, Heart Catheterization Additional Past Surgical History / Comment(s): COLONOSCOPY. PAIN CLINIC PROC'S, BACK SURGERY AT [facility] IN [place]. Past Anesthesia/Blood Transfusion Reactions: Previous Problems w/ Anesthesia Additional Past Anesthesia/Blood Transfusion Reaction / Comment(s): WITH ONE PAIN PROC WAS AWAKE, PROCEDURE VERY PAINFUL Past Psychological History: No Psychological Hx Reported Smoking Status: Current every day smoker Past Alcohol Use History: None Reported Past Drug Use History: Marijuana - Past Family History Father Family Medical History: No Reported History <Chuckie Carrera - Last Filed: 05/21/19 17:01> General Exam Limitations: no limitations <Chuckie Carrera - Last Filed: 05/21/19 17:01> General appearance: alert, in no apparent distress Head exam: Present: atraumatic, normocephalic, normal inspection Eye exam: Present: normal appearance, PERRL, EOMI. Absent: scleral icterus, conjunctival injection, periorbital swelling ENT exam: Present: normal exam, mucous membranes moist Neck exam: Present: normal inspection. Absent: tenderness, meningismus, lymphadenopathy Respiratory exam: Present: normal lung sounds bilaterally. Absent: respiratory distress, wheezes, rales, rhonchi, stridor Cardiovascular Exam: Present: regular rate, normal rhythm, normal heart sounds. Absent: systolic murmur, diastolic murmur, rubs, gallop, clicks GI/Abdominal exam: Present: soft, normal bowel sounds. Absent: distended, tenderness, guarding, rebound, rigid Extremities exam: Present: normal inspection, full ROM, normal capillary refill. Absent: tenderness, pedal edema, joint swelling, calf tenderness Back exam: Present: normal inspection Neurological exam: Present: alert, oriented X3, CN II-XII intact Psychiatric exam: Present: normal affect, normal mood Skin exam: Present: warm, dry, intact, normal color. Absent: rash <Chace Díaz - Last Filed: 05/26/19 11:07> - General Exam Comments Initial Comments: Severe anterior abdominal pain (Chace Díaz) Course <Chace Díaz - Last Filed: 05/26/19 11:07> Vital Signs 05/21/19 05/21/19 15:39 19:55 Temperature 98.5 F Pulse Rate 85 83 Respiratory 18 18 Rate Blood Pressure 102/69 114/84 O2 Sat by Pulse 99 97 Oximetry - Reevaluation(s) Reevaluation #1: 05/21/19 18:55 Medical record is reviewed (Chace Díaz) Reevaluation #2: 05/21/19 18:56 Pain is improving (Chace Díaz) Medical Decision Making - Lab Data Result diagrams: 05/23/19 07:17 05/23/19 07:17 - Radiology Data Radiology results: report reviewed (KUB is negative for acute disease CT head and pelvis is pending), image reviewed <Chace Díaz - Last Filed: 05/26/19 11:07> - Medical Decision Making 63 male the ER for evaluation. Patient can be admitted for pain control and reevaluation of PEG tube (Chace Díaz) - Lab Data Lab Results 05/21/19 05/21/19 05/21/19 Range/Units 17:35 17:35 17:35 WBC 6.9 (3.8-10.6) k/uL RBC 4.21 L (4.30-5.90) m/uL Hgb 13.7 (13.0-17.5) gm/dL Hct 41.3 (39.0-53.0) % MCV 98.1 (80.0-100.0) fL MCH 32.6 (25.0-35.0) pg MCHC 33.2 (31.0-37.0) g/dL RDW 13.6 (11.5-15.5) % Plt Count 290 (150-450) k/uL Neutrophils % 80 % Lymphocytes % 6 % Monocytes % 9 % Eosinophils % 3 % Basophils % 0 % Neutrophils # 5.5 (1.3-7.7) k/uL Lymphocytes # 0.4 L (1.0-4.8) k/uL Monocytes # 0.6 (0-1.0) k/uL Eosinophils # 0.2 (0-0.7) k/uL Basophils # 0.0 (0-0.2) k/uL Sodium 135 L (137-145) mmol/L Potassium 5.0 (3.5-5.1) mmol/L Chloride 97 L (98-107) mmol/L Carbon Dioxide 30 (22-30) mmol/L Anion Gap 8 mmol/L BUN 24 H (9-20) mg/dL Creatinine 0.57 L (0.66-1.25) mg/dL Est GFR (CKD-EPI)AfAm >90 (>60 ml/min/1.73 sqM) Est GFR (CKD-EPI)NonAf >90 (>60 ml/min/1.73 sqM) Glucose 95 (74-99) mg/dL Plasma Lactic Acid Kj 1.2 (0.7-2.0) mmol/L Calcium 9.3 (8.4-10.2) mg/dL Phosphorus 4.4 (2.5-4.5) mg/dL Magnesium 2.4 H (1.6-2.3) mg/dL Total Bilirubin 0.4 (0.2-1.3) mg/dL AST 26 (17-59) U/L ALT 21 (21-72) U/L Alkaline Phosphatase 83 (38-126) U/L Creatine Kinase 29 L (55-170) U/L Total Protein 7.0 (6.3-8.2) g/dL Albumin 3.9 (3.5-5.0) g/dL Amylase 54 (30-110) U/L Lipase 72 (23-300) U/L Disposition <Chuckie Carrera - Last Filed: 05/21/19 17:01> Is patient prescribed a controlled substance at d/c from ED?: No <Chace Díaz - Last Filed: 05/26/19 11:07> Clinical Impression: Abdominal pain, Weight loss, Dehydration Disposition: ADMITTED IP TO THIS HOSP Condition: Fair
[2019-05-21] MEDS ORDERED: SODIUM CHLORIDE 0.9% 1,000 ML IV STA (17:29)
[2019-05-21] MEDS ORDERED: HYDROmorphone 1 MG/ML 1 ML SYRINGE IVP STA (17:29)
[2019-05-21 17:45] LABS: Basophils % (A) 0 %; Eosinophils # (A) 0.2 k/uL (0-0.7); Eosinophils % (A) 3 %; HCT 41.3 % (39.0-53.0); HGB 13.7 gm/dL (13.0-17.5); Lymphocytes # (A) 0.4 k/uL (1.0-4.8); Lymphocytes % (A) 6 %; MCH 32.6 pg (25.0-35.0); MCHC 33.2 g/dL (31.0-37.0); MCV 98.1 fL (80.0-100.0); Monocytes # (A) 0.6 k/uL (0-1.0); Monocytes % (A) 9 %; Neutrophils # (A) 5.5 k/uL (1.3-7.7); Neutrophils % (A) 80 %; Platelet Count 290 k/uL (150-450); RBC 4.21 m/uL (4.30-5.90); RDW 13.6 % (11.5-15.5); WBC 6.9 k/uL (3.8-10.6)
[2019-05-21 17:54] LABS: ALT 21 U/L (21-72); AST 26 U/L (17-59); African American GFR (CKD) >90 (>60 ml/min/1.73 sqM); Albumin 3.9 g/dL (3.5-5.0); Alkaline Phosphatase 83 U/L (38-126); Amylase 54 U/L (30-110); Anion Gap 8 mmol/L; Blood Urea Nitrogen 24 mg/dL (9-20); Calcium 9.3 mg/dL (8.4-10.2); Carbon Dioxide 30 mmol/L (22-30); Chloride 97 mmol/L (98-107); Creatine Kinase 29 U/L (55-170); Glucose 95 mg/dL (74-99); Magnesium 2.4 mg/dL (1.6-2.3); Phosphorus 4.4 mg/dL (2.5-4.5); Sodium 135 mmol/L (137-145); Total Bilirubin 0.4 mg/dL (0.2-1.3)
--- NOTE | 2019-05-21 18:33 | XR ---
EXAMINATION TYPE: XR KUB DATE OF EXAM: 05/21/2019 COMPARISON: NONE HISTORY: Check tube placement TECHNIQUE: Single view FINDINGS: There is gastrostomy tube over the left upper quadrant. Bowel gas pattern is normal. There is no sign of intestinal obstruction or pneumoperitoneum. Fecal pattern is normal. Lung bases are antonio ar. There is lumbar dextroscoliosis. IMPRESSION: Nonacute abdomen. No contrast in the stomach to verify position. Gastrostomy tube in good position over the gastric body.
[2019-05-21] MEDS ORDERED: DEXTROSE 5%-0.45% NACL 1,000 ML IV ONE (18:52)
[2019-05-21] MEDS ORDERED: GLYCERIN ADULT SUPPOSITORY 1 EACH RECTAL STA (18:52)
--- NOTE | 2019-05-21 19:23 | CT ---
EXAMINATION TYPE: CT abdomen pelvis w con DATE OF EXAM: 05/21/2019 COMPARISON: 03/14/2019 HISTORY: Abdominal pain post peg tube insertion x1 week ago. CT DLP: 580.4 mGycm Automated exposure control for dose reduction was used. TECHNIQUE: Helical acquisition of images was performed from the lung bases through the pelvis. CONTRAST: Performed without Oral Contrast and with IV Contrast, patient injected with 100ml mL of Isovue 300. FINDINGS: There is subsegmental atelectasis at the right lung base. There is no pleural effusion. Heart size is normal. There is no pericardial effusion. Gallbladder appears normal. There are multiple small cysts in the liver that measure up to 8 mm.. Com mon bile duct measures up to 8 mm. There is no significant dilation of intrahepatic bile ducts. Splee n appears normal. There is no pancreatic mass. There is gastrostomy tube with the tip that appears in good position in the anterior body of the stom ach. There is no adrenal mass. Kidneys show satisfactory contrast opacification. There is no hydronephrosi s. Abdominal aorta is atheromatous. There is no retroperitoneal adenopathy. Ureters are not dilated. Bladder distends smoothly. There is no inguinal hernia. There is dilated rectum that measures 7.5 cm with fecal material. There is no free fluid in the pelvis. Appendix appears normal. There is no mesen teric edema. There is no ascites or free air. There is thoracolumbar dextroscoliosis with multilevel spondylotic changes. Bony pelvis is intact. IMPRESSION: SUBSEGMENTAL ATELECTASIS AT THE LUNG BASES UNCHANGED COMPARED TO OLD EXAM. ATHEROSCLEROTIC VASCULAR D ISEASE. CONSTIPATION THERE IS NEW COMPARED TO OLD EXAM. Large common bile duct that could relate to gallbladder dysfunction. This appears new compared to old CT scan.
[2019-05-21] MEDS: HYDROmorphone 1 MG/ML 1 ML SYRINGE IVP PRN (21:36)
[2019-05-22] MEDS: HYDROmorphone 1 MG/ML 1 ML SYRINGE IVP PRN ×2 (04:15→11:19)
--- NOTE | 2019-05-22 11:35 | P.GSHP ---
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 Patient was discharged home in stable condition. Patient reports abdominal pain with his feedings that began two days ago. His regimen is 400cc of tube feeding TID and 300cc of free water TID, for a total of 700cc TID. Patient reports increased abdominal pain near the end of his bolus feeding. He believes the amount is too much at one time. Patient examined this morning at the bedside. during my initial examination, the patient denied abdominal pain upon palpation of PEG tube site and surrounding area. He reports his PEG was unable to be flushed yesterday and thought it was blocked. PEG flushed with 20cc water with ease. No blockage. No pain during flushing. Shortly after, patient did begin to report abdominal pain to right upper aspect of PEG tube site with extreme tenderness with palpation. Patient also complains of rectal pain and states he feels like he is having rectal spasms. He reports two bowel movements this morning. Both small in size. Denies hard stools. PAST MEDICAL HISTORY: See list. PAST SURGICAL HISTORY: See list. SOCIAL HISTORY: No illicit drug use. REVIEW OF SYSTEMS: CONSTITUTIONAL: Denies fever or chills. HEENT: Denies blurred vision, vision changes, or eye pain. Denies hemoptysis CARDIOVASCULAR: Denies chest pain or pressure. RESPIRATORY: No shortness of breath. GASTROINTESTINAL: Refer to HPI for pertinent findings HEMATOLOGIC: Denies bleeding disorders. GENITOURINARY: Denies any blood in urine. SKIN: Denies pruitis. Denies rash. PHYSICAL EXAM: VITAL SIGNS: Reviewed. GENERAL: Well-developed in no acute distress. HEENT: No sclera icterus. Extraocular movements grossly intact. Moist buccal mucosa. Head is atraumatic, normocephalic. ABDOMEN: Soft. Nondistended. Tenderness with palpation of right upper aspect of PEG tube. PEG tube site without redness, swelling, or drainage. NEUROLOGIC: Alert and oriented. Cranial nerves II through XII grossly intact. LABORATORY DATA: WBC 6.9. Hemoglobin 13.7. Platelet count 290. Sodium 135. Potassium 5.0. B UN 24. Creatinine 0.57. Lactic acid 1.2. Magnesium 2.4. IMAGING: CT abdomen and pelvis: , And bile duct measures up to 8 mm. No pancreatic mass. Gastrostomy tube with the tip that appears to be in good position and the anterior body of the stomach. Dilated rectum that measures 7.5 cm with fecal material. No free fluid in the pelvis. Appendix appears normal. ASSESSMENT: 1. Abdominal pain 2. Recent PEG tube insertion, 05/13/19 3. History of epiglottis cancer 4. Rectal pain PLAN: 1. NPO. Hold tube feedings 2. Continue IV fluids 3. Consult dietary to see if adjustments can be made to tube feeding regimen. Patient requesting to have smaller amounts of feeding/free water more frequently. 4. Patient to undergo EGD and rectal exam under anesthesia today with Dr. Lopez to evaluate PEG tube Nurse practitioner note has been reviewed by physician. Signing provider agrees with the documented findings, assessment, and plan of care. Past Medical History Past Medical History: Cancer, Heart Failure, Musculoskeletal Disorder Additional Past Medical History / Comment(s): CARDIOMYOPATHY. VARICOSE VEINS. CHRONIC BACK PAIN, DIFFICULTY WALKING DISTANCE OR SITTING.esphagheal/throat ca History of Any Multi-Drug Resistant Organisms: None Reported Past Surgical History: Back Surgery, Heart Catheterization Additional Past Surgical History / Comment(s): COLONOSCOPY. PAIN CLINIC PROC'S, BACK SURGERY AT [facility] IN [place]. Past Anesthesia/Blood Transfusion Reactions: Previous Problems w/ Anesthesia Additional Past Anesthesia/Blood Transfusion Reaction / Comment(s): WITH ONE PAIN PROC WAS AWAKE, PROCEDURE VERY PAINFUL Past Psychological History: No Psychological Hx Reported Smoking Status: Current every day smoker Past Alcohol Use History: None Reported Additional Past Alcohol Use History / Comment(s): SMOKES 1 PPD., SMOKING SINCE AGE 14. DRINKS 2 BEERS DAILY. Past Drug Use History: Marijuana Additional Drug Use History / Comment(s): CURRENT MARIJUANA USE DAILY-INSTRUCTED TO REFRAIN FROM USE FOR AT LEAST 24 HOURS PRIOR TO PROCEDURE - Past Family History Father Family Medical History: No Reported History Medications and Allergies Home Medications Medication Instructions Recorded Confirmed Type Lisinopril [Zestril] 20 mg PO HS 01/29/14 05/21/19 History Metoprolol Tartrate [Lopressor] 12.5 mg PO BID 01/29/14 05/21/19 History Multivitamin [Multivitamins] 1 tab PO DAILY 01/29/14 05/21/19 History ALPRAZolam [Xanax] 0.5 mg PO Q8H PRN 05/12/19 05/21/19 History HYDROcodone/APAP 10-325MG [[place] 1 tab PO Q8HR PRN 05/12/19 05/21/19 History 10-325] Morphine Sulfate ER [Ms Contin] 30 mg PO DAILY 05/12/19 05/21/19 History Morphine Sulfate ER [Ms Contin] 30 mg PO HS 05/12/19 05/21/19 History Allergies Allergy/AdvReac Type Severity Reaction Status Date / Time No Known Allergies Allergy Verified 05/21/19 16:00 Surgical - Exam Vital Signs Temp Pulse Resp BP Pulse Ox 98.5 F 85 18 102/69 99 05/21/19 15:39 05/21/19 15:39 05/21/19 15:39 05/21/19 15:39 05/21/19 15:39 Results - Labs 05/21/19 17:35 05/21/19 17:35 Abnormal Lab Results - Last 24 Hours (Table) 05/21/19 05/21/19 Range/Units 17:35 17:35 RBC 4.21 L (4.30-5.90) m/uL Lymphocytes # 0.4 L (1.0-4.8) k/uL Sodium 135 L (137-145) mmol/L Chloride 97 L (98-107) mmol/L BUN 24 H (9-20) mg/dL Creatinine 0.57 L (0.66-1.25) mg/dL Magnesium 2.4 H (1.6-2.3) mg/dL Creatine Kinase 29 L (55-170) U/L Diabetes panel 05/21/19 Range/Units 17:35 Sodium 135 L (137-145) mmol/L Potassium 5.0 (3.5-5.1) mmol/L Chloride 97 L (98-107) mmol/L Carbon Dioxide 30 (22-30) mmol/L BUN 24 H (9-20) mg/dL Creatinine 0.57 L (0.66-1.25) mg/dL Glucose 95 (74-99) mg/dL Calcium 9.3 (8.4-10.2) mg/dL AST 26 (17-59) U/L ALT 21 (21-72) U/L Alkaline Phosphatase 83 (38-126) U/L Total Protein 7.0 (6.3-8.2) g/dL Albumin 3.9 (3.5-5.0) g/dL Calcium panel 05/21/19 Range/Units 17:35 Calcium 9.3 (8.4-10.2) mg/dL Phosphorus 4.4 (2.5-4.5) mg/dL Albumin 3.9 (3.5-5.0) g/dL Pituitary panel 05/21/19 Range/Units 17:35 Sodium 135 L (137-145) mmol/L Potassium 5.0 (3.5-5.1) mmol/L Chloride 97 L (98-107) mmol/L Carbon Dioxide 30 (22-30) mmol/L BUN 24 H (9-20) mg/dL Creatinine 0.57 L (0.66-1.25) mg/dL Glucose 95 (74-99) mg/dL Calcium 9.3 (8.4-10.2) mg/dL Adrenal panel 05/21/19 Range/Units 17:35 Sodium 135 L (137-145) mmol/L Potassium 5.0 (3.5-5.1) mmol/L Chloride 97 L (98-107) mmol/L Carbon Dioxide 30 (22-30) mmol/L BUN 24 H (9-20) mg/dL Creatinine 0.57 L (0.66-1.25) mg/dL Glucose 95 (74-99) mg/dL Calcium 9.3 (8.4-10.2) mg/dL Total Bilirubin 0.4 (0.2-1.3) mg/dL AST 26 (17-59) U/L ALT 21 (21-72) U/L Alkaline Phosphatase 83 (38-126) U/L Total Protein 7.0 (6.3-8.2) g/dL Albumin 3.9 (3.5-5.0) g/dL <Henry Lopez - Last Filed: 05/22/19 11:58> History of Present Illness As above. Patient having pain around the PEG tube site. Gastrostomy tube [place] ears to be within the stomach however the patient has so little abdominal fat that it is difficult to say with certainty. Also concern regarding the possibility of fecal impaction. We'll proceed with EGD at this time to evaluate the PEG tube and digital rectal examination with possible disimpaction. Surgical - Exam Vital Signs Temp Pulse Resp BP Pulse Ox 98.5 F 85 18 102/69 99 05/21/19 15:39 05/21/19 15:39 05/21/19 15:39 05/21/19 15:39 05/21/19 15:39 Results - Labs 05/21/19 17:35 05/21/19 17:35 Abnormal Lab Results - Last 24 Hours (Table) 05/21/19 05/21/19 Range/Units 17:35 17:35 RBC 4.21 L (4.30-5.90) m/uL Lymphocytes # 0.4 L (1.0-4.8) k/uL Sodium 135 L (137-145) mmol/L Chloride 97 L (98-107) mmol/L BUN 24 H (9-20) mg/dL Creatinine 0.57 L (0.66-1.25) mg/dL Magnesium 2.4 H (1.6-2.3) mg/dL Creatine Kinase 29 L (55-170) U/L Diabetes panel 05/21/19 Range/Units 17:35 Sodium 135 L (137-145) mmol/L Potassium 5.0 (3.5-5.1) mmol/L Chloride 97 L (98-107) mmol/L Carbon Dioxide 30 (22-30) mmol/L BUN 24 H (9-20) mg/dL Creatinine 0.57 L (0.66-1.25) mg/dL Glucose 95 (74-99) mg/dL Calcium 9.3 (8.4-10.2) mg/dL AST 26 (17-59) U/L ALT 21 (21-72) U/L Alkaline Phosphatase 83 (38-126) U/L Total Protein 7.0 (6.3-8.2) g/dL Albumin 3.9 (3.5-5.0) g/dL Calcium panel 05/21/19 Range/Units 17:35 Calcium 9.3 (8.4-10.2) mg/dL Phosphorus 4.4 (2.5-4.5) mg/dL Albumin 3.9 (3.5-5.0) g/dL Pituitary panel 05/21/19 Range/Units 17:35 Sodium 135 L (137-145) mmol/L Potassium 5.0 (3.5-5.1) mmol/L Chloride 97 L (98-107) mmol/L Carbon Dioxide 30 (22-30) mmol/L BUN 24 H (9-20) mg/dL Creatinine 0.57 L (0.66-1.25) mg/dL Glucose 95 (74-99) mg/dL Calcium 9.3 (8.4-10.2) mg/dL Adrenal panel 05/21/19 Range/Units 17:35 Sodium 135 L (137-145) mmol/L Potassium 5.0 (3.5-5.1) mmol/L Chloride 97 L (98-107) mmol/L Carbon Dioxide 30 (22-30) mmol/L BUN 24 H (9-20) mg/dL Creatinine 0.57 L (0.66-1.25) mg/dL Glucose 95 (74-99) mg/dL Calcium 9.3 (8.4-10.2) mg/dL Total Bilirubin 0.4 (0.2-1.3) mg/dL AST 26 (17-59) U/L ALT 21 (21-72) U/L Alkaline Phosphatase 83 (38-126) U/L Total Protein 7.0 (6.3-8.2) g/dL Albumin 3.9 (3.5-5.0) g/dL
[2019-05-22] MEDS ORDERED: PROPOFOL 10 MG/ML 20 ML VIAL IV ONE (11:46)
[2019-05-22] MEDS ORDERED: LACTATED RINGERS 1,000 ML IV ONE (11:58)
--- NOTE | 2019-05-22 12:13 | P.PCN ---
Date of Procedure: 05/22/19 Procedure(s) Performed: Preoperative Dx: Abdominal pain, constipation Postoperative Dx: Gastritis, fecal impaction Procedure: EGD with disimpaction Anesthesia: Sedation Endoscopist: Dr. Lopez Specimens: None Endoscopic Procedure: The patient was on the endoscopy table in the left decubitus position. The Olympus gastroscope was inserted into the oropharynx and passed under direct visualization to the region of the third portion of the duodenum. From that point the scope was slowly withdrawn inspecting all surfaces carefully. There were no neoplastic inflammatory or polypoid lesions throughout the duodenum. The pylorus was widely patent. The stomach was carefully inspected. There was mild gastritis present. The PEG tube was intact. There was no inflammatory changes around it. There did not appear to be any complications related to the PEG tube. The esophagus was then carefully examined. There were no neoplastic inflammatory or polypoid lesions throughout the visualized esophagus. A rectal examination took place. The patient did have a fecal impaction. This was evacuated manually. I would estimate 10 ounces of stool was evacuated. The patient was then taken to the recovery room in stable condition per anesthesia guidelines. Recommendations: Continue stool softeners. Resume tube feeds via pump
[2019-05-22] MEDS: SODIUM CHLORIDE 0.9% 1,000 ML IV SCH ×2 (12:38→22:54)
[2019-05-22] MEDS ORDERED: HYDROcodone/APAP 10-325MG 1 EACH TAB PO PRN (14:06)
[2019-05-22] MEDS: ALPRAZolam 0.5 MG TAB PO PRN (15:46)
--- NOTE | 2019-05-22 18:40 | XR ---
EXAMINATION TYPE: XR chest 1V portable DATE OF EXAM: 05/22/2019 COMPARISON: NONE HISTORY: Short of breath TECHNIQUE: Single frontal view of the chest is obtained. FINDINGS: Heart is normal. Lungs are clear of consolidation. There is no heart failure. There is no pleural effusion. There is slight coarsening of interstitial markings. Bony thorax is intact. There i s some apparent artifact over the stomach. IMPRESSION: No active cardiopulmonary disease. Minimal pulmonary fibrotic changes.
[2019-05-22] MEDS: DOCUSATE ORAL SOLN 100 MG/10 ML CUP PO SCH (20:51)
[2019-05-22] MEDS: HEPARIN SODIUM,PORCINE 5,000 UNIT/ML 1 ML VIAL SQ SCH (20:51)
[2019-05-22] MEDS: METOPROLOL TARTRATE 12.5 MG TAB PO SCH (20:51)
[2019-05-22] MEDS: MORPHINE SULFATE 2 MG/ML SYRINGE IVP PRN (20:53)
[2019-05-22] MEDS ORDERED: MORPHINE SULFATE ER 30 MG TABLET PO SCH (21:00)
[2019-05-22] MEDS ORDERED: LISINOPRIL 20 MG TAB PO SCH (21:00)
--- NOTE | 2019-05-22 21:00 | CONS ---
CONSULTATION REASON FOR CONSULTATION: Advice regarding CHF and other medical issues, requested by Dr. Lopez. HISTORY OF PRESENT ILLNESS: This 63-year-old gentleman with a past medical history of CHF, history of cardiomyopathy, history of varicose veins, history of chronic back pain, history of esophageal carcinoma, history of nicotine dependence, being followed by Dr. Singh in [facility], has had a PEG tube placed previously. The patient is complaining of abdominal pain. The pain is present with feedings. The patient is apparently receiving feedings on a bolus basis with some water flushes. The patient came to [facility] and was admitted for evaluation and treatment. A CT scan of the abdomen and pelvis showed good position of the gastrostomy tube, and dilated rectum was noted with some constipation. EGD was done by Dr. Lopez with rectal examination and disimpaction. The patient is being closely monitored. The feedings have been changed to continuous feeds via a pump at this time. There is no history of any fever or rigors, no history of headache, loss of consciousness, seizures. No history of hematochezia, melena, chest pain, palpitations. PAST MEDICAL HISTORY: 1. History of CHF. 2. History of cardiomyopathy. 3. History of esophageal cancer. 4. History of recent PEG tube placement. MEDICATIONS: 1. Multivitamins 1 p.o. daily. 2. MS Contin 30 mg p.o. daily and 30 mg at bedtime. 3. Lopressor 12.5 mg b.i.d. 4. Zestril 20 mg at bedtime. 5. [place] 10 mg q.8 p.r.n. 6. Xanax 0.5 q.8 p.r.n. ALLERGIES: NONE. FAMILY HISTORY: No history of heart disease or strokes in the family. SOCIAL HISTORY: History of and continued ongoing smoking. Occasional alcohol intake, THC. REVIEW OF SYSTEMS: ENT: As mentioned earlier. CARDIOVASCULAR SYSTEM: No angina, palpitations. RESPIRATORY SYSTEM: No cough, hemoptysis. GI: As mentioned earlier. : No dysuria or retention. NERVOUS SYSTEM: No numbness, weakness. ALLERGY/IMMUNOLOGY: No asthma, hayfever. MUSCULOSKELETAL: As mentioned earlier. HEMATOLOGY/ONCOLOGY: As mentioned earlier. ENDOCRINE: No history of diabetes, hypothyroidism. CONSTITUTIONAL: As mentioned earlier. DERMATOLOGY: Negative. RHEUMATOLOGY: Negative. PSYCHIATRY: As mentioned earlier. PHYSICAL EXAMINATION: Patient alert and oriented x3. Pulse 75, blood pressure 122/72, respirations 16, temperature 97.9, pulse ox 94% on room air. BMI 17.6. HEENT: Conjunctivae normal. Oral mucosa moist. NECK: No jugular venous distention. No carotid bruit. No lymph node enlargement. CARDIOVASCULAR SYSTEM: S1, S2 muffled. No S3. No S4. RESPIRATORY SYSTEM: Breath sounds diminished at the bases. A few scattered rhonchi and crackles. ABDOMEN: Soft. PEG tube in situ. Mild diffuse discomfort. No guarding. No rigidity. No mass palpable. LEGS: No edema. No swelling. NERVOUS SYSTEM: Higher functions as mentioned earlier. Moves all 4 limbs. No focal motor or sensory deficit. LYMPHATICS: No lymph node palpable in neck, axillae or groin. SKIN: No ulcer, rash, bleeding. JOINTS: No active deforming arthropathy. LABS: WBC 6.9, hemoglobin 13.7, sodium 135. ASSESSMENT: 1. Abdominal pain, possibly secondary to constipation. 2. PEG tube feeds for protein-calorie malnutrition secondary to history of esophageal malignancy. 3. Severe protein-calorie malnutrition with body mass index of 17.6. 4. Hyponatremia. 5. History of congestive heart failure. 6. History of degenerative joint disease. 7. History of cardiomyopathy. 8. History of chronic back pain. 9. History of continued ongoing nicotine dependence. 10.History of renal failure. RECOMMENDATIONS AND DISCUSSION: In this 63-year-old gentleman who presented with multiple complex medical issues, at this time I recommend to continue current medical management and symptomatic treatment. Resume the home medications. I would also recommend regular laxatives. Arrange continuous feeding pump. Dietary evaluation. Head of the bed elevated to 45 degrees all the time. Aspiration precautions. The patient might require a hospital bed if continuous feeding is being planned at home, which is quite necessary to ensure proper positioning to prevent aspiration. Prognosis guarded. Further recommendations to follow. Thank you, Dr. Lopez, for letting us participate in the care of this patient. I would also recommend a chest x-ray to ensure ideal fluid balance. MMODL / IJN: [id number] /
[2019-05-23] MEDS: ALPRAZolam 0.5 MG TAB PO PRN ×2 (00:02→07:54)
[2019-05-23] MEDS: SODIUM CHLORIDE 0.9% 1,000 ML IV SCH (00:03)
[2019-05-23] MEDS: MORPHINE SULFATE 2 MG/ML SYRINGE IVP PRN (02:01)
[2019-05-23] MEDS ORDERED: PANTOPRAZOLE 40 MG TABLET PO SCH (07:30)
[2019-05-23] MEDS: HEPARIN SODIUM,PORCINE 5,000 UNIT/ML 1 ML VIAL SQ SCH (07:51)
[2019-05-23] MEDS: DOCUSATE ORAL SOLN 100 MG/10 ML CUP PO SCH (07:53)
[2019-05-23] MEDS: METOPROLOL TARTRATE 12.5 MG TAB PO SCH (07:53)
[2019-05-23 07:57] LABS: Basophils % (A) 0 %; Eosinophils # (A) 0.1 k/uL (0-0.7); Eosinophils % (A) 1 %; HCT 38.4 % (39.0-53.0); HGB 12.9 gm/dL (13.0-17.5); Lymphocytes # (A) 0.3 k/uL (1.0-4.8); Lymphocytes % (A) 4 %; MCH 33.3 pg (25.0-35.0); MCHC 33.6 g/dL (31.0-37.0); Mean Platelet Volume 7.8; Monocytes # (A) 0.5 k/uL (0-1.0); Monocytes % (A) 6 %; Neutrophils # (A) 7.5 k/uL (1.3-7.7); Neutrophils % (A) 88 %; Platelet Count 291 k/uL (150-450); RBC 3.88 m/uL (4.30-5.90); RDW 13.4 % (11.5-15.5); WBC 8.5 k/uL (3.8-10.6)
[2019-05-23 08:31] LABS: African American GFR (CKD) >90 (>60 ml/min/1.73 sqM); Anion Gap 10 mmol/L; Blood Urea Nitrogen 12 mg/dL (9-20); Carbon Dioxide 27 mmol/L (22-30); Chloride 102 mmol/L (98-107); Glucose 108 mg/dL (74-99); Potassium 3.8 mmol/L (3.5-5.1); Sodium 139 mmol/L (137-145)
[2019-05-23] MEDS ORDERED: MULTIVITAMINS, THERA 1 EACH TAB PO SCH (09:00)
[2019-05-23] MEDS ORDERED: MORPHINE SULFATE ER 30 MG TABLET PO SCH (09:00)
--- NOTE | 2019-05-23 10:51 | P.DS ---
Providers Date of admission: 05/21/19 18:54 Expected date of discharge: 05/23/19 Attending physician: Henry Lopez Consults: 05/22/19 12:51 Consult Physician Routine Consulting Provider: Juaquin Capps Consult Reason/Comments: medical management Do you want consulting provider notified?: Yes Primary care physician: [facility] Hospital Course: Patient minute through the emergency department with complaints of abdominal pain. Patient is having issues related to constipation and pain around the PEG tube site. Yesterday he went for EGD and fecal disimpaction. Upper endoscopy revealed a normal-appearing PEG tube. Patient doing better today. Land discharged today with modification of his dietary regimen. Follow-up with his oncology team post discharge. Patient Condition at Discharge: Fair Plan - Discharge Summary New Discharge Prescriptions: No Action Metoprolol Tartrate [Lopressor] 12.5 mg PO BID Lisinopril [Zestril] 20 mg PO HS Multivitamin [Multivitamins] 1 tab PO DAILY ALPRAZolam [Xanax] 0.5 mg PO Q8H PRN PRN Reason: Anxiety Morphine Sulfate ER [Ms Contin] 30 mg PO HS Morphine Sulfate ER [Ms Contin] 30 mg PO DAILY HYDROcodone/APAP 10-325MG [[place] 10-325] 1 tab PO Q8HR PRN PRN Reason: pain Discharge Medication List Lisinopril [Zestril] 20 mg PO HS 01/29/14 [History] Metoprolol Tartrate [Lopressor] 12.5 mg PO BID 01/29/14 [History] Multivitamin [Multivitamins] 1 tab PO DAILY 01/29/14 [History] ALPRAZolam [Xanax] 0.5 mg PO Q8H PRN 05/12/19 [History] HYDROcodone/APAP 10-325MG [[place] 10-325] 1 tab PO Q8HR PRN 05/12/19 [History] Morphine Sulfate ER [Ms Contin] 30 mg PO DAILY 05/12/19 [History] Morphine Sulfate ER [Ms Contin] 30 mg PO HS 05/12/19 [History] Follow up Appointment(s)/Referral(s): Henry Lopez MD [Medical Doctor] - 1 Week [facility] [Primary Care Provider] - 1-2 days Activity/Diet/Wound Care/Special Instructions: Home tube feeding schedule. 5 bolus feeding of 240 ml Two Jared HN with 75 ml free water flush before and after each feeding .
[2019-05-23 11:53] VITALS: BP 151/85; PULSE 86; RESP 17; TEMP 97.9
[2019-05-23 12:09] VITALS: BMI 17.5
--- NOTE | 2019-05-23 21:04 | PN ---
PROGRESS NOTE DATE OF SERVICE: 05/23/2019 This 63-year-old gentleman was admitted with abdominal pain has significant constipation. The PEG tube has been patent at this time. The patient being closely monitored. Dr. Lopez is planning for discharge. No chest pain. No palpitations. No fever. EXAM: Alert and oriented x3. Pulse 86, blood pressure 151/85, respirations 17, temperature 97.7, pulse ox 98% on room air. HEENT is conjunctivae normal. NECK: No jugular venous distention. CARDIOVASCULAR: S1, S2 muffled. RESPIRATIONS: Breath sounds diminished in the bases. No rhonchi. No crackles. ABDOMEN is soft, status post PEG tube. LEGS: No edema. No swelling. NERVOUS SYSTEM: No focal deficits. LABS: WBC 8.2, hemoglobin 12.9. Other labs are noted. ASSESSMENT: 1. Abdominal pain possibly secondary to constipation. 2. PEG tube feeds for protein calorie malnutrition secondary to history of history of malignancy. 3. Severe protein calorie malnutrition with body mass index of 17.6. 4. Hyponatremia. 5. History of congestive heart failure, ejection fraction unknown. 6. History of degenerative joint disease. 7. History of cardiomyopathy. 8. History of chronic back pain. 9. History of continued ongoing nicotine dependence. 10.History of renal failure. RECOMMENDATIONS AND DISCUSSION: Recommend to continue current medications, management and symptomatic treatment. I would also recommend regular Colace currently and if the patient is further constipated, follow up with primary physician for addition of possibly lactulose. Otherwise, continue the rest of the medications. The patient is apparently not willing for continuous feeds at this time, so bolus feeds are recommended. Also recommend to avoid water flushes at the same time and space it in between. Discussed with dietitian who will be coordinating the further amount and rate of the tube feeds. Aspiration precautions and further recommendations to follow. Also recommend close followup with primary physician in the outpatient setting, [facility], Dr. Snigh. MMMARISL / YAMILETN: [id number] /
== END 2019-05-23 12:50 | disposition home or self-care (01) ==
LOC: EC 15:27 → 3NMEDONC 18:54
PROVIDERS: ADMIT Surgery; ATTEND Surgery
DX: K56.41 Fecal impaction (principal); E43 Unspecified severe protein-calorie malnutrition; T85.848A Pain due to other internal prosthetic devices, implants and grafts, initial encounter; Z68.1 Body mass index [BMI] 19.9 or less, adult; E86.0 Dehydration; E87.1 Hypo-osmolality and hyponatremia; I83.90 Asymptomatic varicose veins of unspecified lower extremity; F17.210 Nicotine dependence, cigarettes, uncomplicated; I42.9 Cardiomyopathy, unspecified; I50.9 Heart failure, unspecified; K29.70 Gastritis, unspecified, without bleeding; G89.29 Other chronic pain; M54.9 Dorsalgia, unspecified; Z85.01 Personal history of malignant neoplasm of esophagus
CPT/HCPCS: 96376 ×2; 96361 ×2; 96372 ×2; 96374; 99285; 36415; 80053; 80048; 82150; 82550; 83605; 83690; 83735; 84100; 85025 ×2; 87040; 71045; 74018; 74177; 43235; G0378 ×3; J1644 ×2; J2270 ×2; J1170 ×2; J2704; Q9967

== ENCOUNTER → 2019-07-14 | Outpatient (CLI) | payer MEDICAID, OTHER ==
[2019-07-14 13:07] VITALS: BP 135/85; PULSE 85; RESP 16
--- NOTE | 2019-07-16 13:44 | P.PAINPG ---
Subjective Progress Note Date: 07/14/19 This is a follow-up visit for this 64 year old male with a chronic history of severe low back pain, patient diagnosed with lumbar degenerative disc disease and lumbar spondylosis with lumbar facet arthropathy, he has undergone lumbar laser spine surgery, done several years ago and he continued to have severe low back pain, he was last seen in our clinic on 03/02/2019 at which point he underwent a caudal epidural steroid injection. He was lost to follow-up. He reports excellent relief from this procedure, likely lasting at least a couple of months, but he is unsure as to how long it lasted. He would like to have a repeat procedure. In the past, he is undergone lumbar radiofrequency ablation, however reports that the caudal provided him greater pain relief. His pain is primarily located in the low back, bilaterally. He does report occasional bilateral buttocks tingling and numbness. 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 He is scheduled to see his oncologist in the near future, and will inform us if he needs further radiation therapy. Review of systems is negative for chest pain, shortness of breath, new onset weakness, numbness/tingling, malaise, fever, night sweats, chills, homicidal or suicidal ideation, or bowel or bladder incontinence. Physical exam: Vitals: Reviewed in EMR GENERAL: Well appearing, in no acute distress PSYCH: Mood and affect is appropriate. Awake, alert, and oriented SKIN: Skin color, texture, turgor normal, no rashes or lesions HEENT: Normocephalic, atraumatic. EOM intact CV: No pedal edema RESP: Respirations are unlabored, no audible wheezing GI: Abdomen non-distended MUSCULOSKELETAL: Bilateral lower extremity strength is normal and symmetric. No atrophy or tone abnormalities are noted. Lumbar spine: Straight leg raising in the sitting position is negative for radicular pain. Tenderness to palpation over the lumbar spine and paraspinous muscles bilaterally. Positive for pain with facet loading and back extension/rotation. Buttocks: No pain to palpation over the PSIS, sacroiliac joint maneuvers are negative for pain. Extremities: Peripheral joint ROM is full and pain free without obvious instability or laxity in all four extremities. No edema or skin discolorations noted. Gait: Gait is slow NEUR: Bilateral lower extremity coordination and muscle stretch reflexes are physiologic and symmetric. Negative clonus bilaterally. No loss of sensation is noted. 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 Patient last underwent radiation therapy for epiglottic cancer 6 weeks ago. He is scheduled to follow-up with his oncologist in the near future, and will call us if he has to undergo further radiation. Medications: No changes were made today Counseling: Patient was counseled on smoking cessation for 3 minutes. He continues to smoke 3-4 cigarettes per day. Follow-up: For above-mentioned procedure PQRS Measure Charge Sheet Measure #130: Documentation of Current Meds in Medical Chart: Patient's medications documented in chart Measure #226: Tobacco Use: Screen & Cessation Intervention: Pt screened for tobacco use AND intervention given Measure #111: Pneumonia Vaccination: Pneumococcal vaccine NOT administered or previously given Measure #47: Advance Care Plan: Advance care planning discussed & documented, pt chose/unable to give Measure #412: Opioid Treatment Agreement: No documentation of signed opioid treatment agreement Measure #317: Preventitive Care & Scrn High Bld Press & F/U: Normal blood pressure, f/u not required Measure #128: Body Mass Index (BMI) Screening & Follow-up: BMI documented within normal parameters Measure #131: Pain Assessment & Follow-up: Pain positive & plan documented, Follow-up scheduled Measure #431: Unhealthy Alcohol Use Preventative Care & Scrn: Patient not identified as an unhealthy alcohol user PQRS Narrative: Smoking Status Current every day smoker Hx Alcohol Use (MH) Yes Home Medications: Ambulatory Orders Lisinopril [Zestril] 20 mg PO HS 01/29/14 Metoprolol Tartrate [Lopressor] 12.5 mg PO BID 01/29/14 Multivitamin [Multivitamins] 1 tab PO DAILY 01/29/14 HYDROcodone/APAP 10-325MG [[place] 10-325] 1 tab PO Q8HR PRN 05/12/19 Controlled Substance Measures - Controlled Substance Measures Is patient prescribed a controlled substance at discharge?: No
== END | disposition home or self-care (01) ==
LOC: PNWHC3 11:39
PROVIDERS: ATTEND Anesthesiology
DX: G89.29 Other chronic pain (principal); M96.1 Postlaminectomy syndrome, not elsewhere classified; M51.36 Other intervertebral disc degeneration, lumbar region; M47.816 Spondylosis without myelopathy or radiculopathy, lumbar region; M46.96 Unspecified inflammatory spondylopathy, lumbar region; C32.1 Malignant neoplasm of supraglottis; R20.2 Paresthesia of skin; R20.0 Anesthesia of skin; F17.200 Nicotine dependence, unspecified, uncomplicated; Z98.890 Other specified postprocedural states
CPT/HCPCS: 99211

== ENCOUNTER 2019-07-20 08:19 | Day surgery (SDC) | payer OTHER, MEDICAID ==
[2019-07-20 09:00] VITALS: RESP 16; TEMP 97.9
[2019-07-20] MEDS ORDERED: LACTATED RINGERS 1,000 ML IV ONE (09:10)
[2019-07-20] MEDS ORDERED: LIDOCAINE 1% 20 ML VIAL (10MG/ML) FOR IV START INTRADERMA ONE (09:11)
[2019-07-20] MEDS ORDERED: LACTATED RINGERS 1,000 ML IV SCH (09:45)
[2019-07-20] MEDS ORDERED: IV FLUID CONTINUATION 1,000 ML IV ONE (10:15)
[2019-07-20 10:45] VITALS: BP 104/72; PULSE 72
--- NOTE | 2019-07-20 14:10 | FL ---
EXAMINATION TYPE: FL guided pain mgmt statistic DATE OF EXAM: 07/20/2019 FLUOROSCOPY Fluoroscopy time of 25 seconds was used during lumbar epidural injection. 2 image/s document/s the p rocedure.
--- NOTE | 2019-07-23 07:08 | P.PCN ---
Date of Procedure: 07/20/19 Description of Procedure: Date of Procedure: 07/20/2019 Description of Procedure: PREOP DIAGNOSIS: Lumbar postlaminectomy syndrome POSTOP DIAGNOSIS: Lumbar postlaminectomy syndrome PROCEDURE: Caudal epidural steroid injection with epidurolysis and epidurogram under fluoroscopic guidance ANESTHESIA: Local with 1% lidocaine 5 ml ; IV sedation with versed 4 mg and fentanyl 100 mics PROCEDURE INDICATION: The patient with post-laminectomy syndrome with low back pain here for a caudal epidural steroid injection with epidurolysis. PROCEDURE DESCRIPTION: The patient was seen and identified in the preoperative area. Risks, benefits, complications, and alternatives were discussed with the patient. The patient agreed to proceed with the procedure and signed the consent. IV was started, and vital signs were stable. Patient was taken to the OR and time out was completed. The patient was placed in the prone position on procedure table and a pillow was placed under the abdomen to reduce lumbar lordosis. The lumbosacral area was prepped and draped in the usual sterile fashion. Vital signs were closely monitored during the procedure. Lateral view and the anterior-posterior plates of the sacrum were identified with infiltration of the area overlying the sacral hiatus with 1% lidocaine. A 17 gauge epidural needle was used to advance through the sacral hiatus into the caudal epidural space. Omnipaque 180 dye 2cc was injected and the position of the needle was verified to be in the midline. A Racz catheter was introduced into the epidural space and was advanced towards the L5-S1 interspace under direct fluoroscopic guidance. Multiple passes were made with the catheter for lysis of epidural adhesions avoiding parasthesia and significant resistance with a left side clearance and unable to pass the catheter to the right side. Contrast dye showed a filling defect along the entire right side of the epidural space. After epidurolysis was complete, 2cc of contrast dye was again used to evaluate spread of contrast in the contrast showed a more cephalad spread along the left epidural space none to the right side. Contrast was spreading beyond the original level on the left side but no contrast spreading up the right side. After negative aspiration, I injected a solution consisting of 40mg of Depo- Medrol, 2ml of Preservative free normal saline and 2ml of ropivacaine 0.5% for a total of 5ml. Additional spread was seen to L4 5 level on the left side under fluoroscopy. The needle and the catheter were withdrawn intact. Epidurogram findings: Omnipaque 180 mg dye 2 ml was injected with spread of the dye into the caudal epidural space and with spread cutoff at L5 prior to epidurolysis. Post epidurolysis dye 2 ml was injected and spread was seen to L4 level on the left side only with filling defect along the entire right epidural space COMPLICATIONS: None. DISPOSITION / PLANS: The patient was placed in a supine position and transferred to the recovery area in a stable condition for observation and was discharged from the recovery room after meeting discharge criteria. Home discharge instructions given to the patient by the staff. The patient was reexamined prior to discharge. The patient will schedule a follow up as directed
--- NOTE | 2019-07-26 19:34 | CDI ---
Outpatient Documentation Clarification Form Date: 07/26/19 CDS/Rigger Chief name: Briana Mckeon Phone: If any questions, call Sandy [facility] Self Pay Specialist at [phone] Patient Name: Amandeep Garcia Admit Date: 07/20/19 Discharge Date: 07/20/19 ATTENTION: The [facility] Coding Staff appreciate your assistance in clarifying documentation. Please respond to the clarification below the line at the bottom and electronically sign. The [facility] Coding Staff with review the response and follow-up if needed. Please note: Queries are made part of the Legal Health Record. If you have you have any questions, please contact the Self Pay Specialist. Dear Dr. Arzola, Please provide clarification as to the type of sedation provided. The operative report documents just that IV Sedation with Versed 4 mg and Fentanyl 100 mics was provided. The Pain Procedure record has nothing checked off under Anesthesia Plan. Please clarify if it was conscious/Moderate sedation or unconscious/ Mac sedation Thank you for your kind consideration. MTDD
== END 2019-07-20 11:00 | disposition home or self-care (01) ==
LOC: ORPAIN 08:19
PROVIDERS: ATTEND Anesthesiology
DX: M96.1 Postlaminectomy syndrome, not elsewhere classified (principal); G96.12 Meningeal adhesions (cerebral) (spinal)
CPT/HCPCS: 62264; J2250; J3301; J2001; J3010; Q9966; 99152

== ENCOUNTER → 2019-08-08 | Outpatient (CLI) | payer OTHER, MEDICAID ==
--- NOTE | 2019-08-10 15:39 | PE ---
EXAMINATION TYPE: PET CT fusion skull to thigh DATE OF EXAM: 08/08/2019 COMPARISON: PET/CT dated 03/14/[address] neck dated 02/13/2019. HISTORY: Malignant neoplasm of the supraglottis. Subsequent treatment strategy. Prior radiation carlos manuel tment. No prior chemotherapy. TECHNIQUE: Following the intravenous administration of 13.06 mCi of F-18 FDG, whole body images are performed from the skull base to the midthigh. Images are reviewed on the computer in the coronal, a xial, and sagittal planes. Reconstructed rotating images are created on independent workstation and reviewed on the computer. A localization and attenuation correction CT is performed in conjunction with the PET scan. SCAN: Subsequent FINDINGS: SKULL BASE AND NECK: There is asymmetric thickening of the posterior aspect of the left false focal cord/aryepiglottic fold in comparison to the right however the previously seen focal hypermetabolic a ctivity is no longer demonstrated. The polypoid morphology seen on the exam of 02/13/2019 is no longer present. Posttreatment change is seen with no residual focal hypermetabolic uptake. Maximum SUV on t he current exam of 1.63 (prior of 16.28). The nonenlarged previously mentioned submandibular lymph no de measuring 6 mm now appears smaller measuring 5 mm and has an SUV of 1.42, prior CT of 3.22. Overal l response to treatment. CHEST, MEDIASTINUM, AND HILAR REGION: No suspicious hypermetabolic uptake. ABDOMEN AND PELVIS: No suspicious hypermetabolic uptake. OSSEOUS STRUCTURES: No suspicious hypermetabolic uptake. OTHER CT: Mild to moderate emphysematous change is most pronounced within the lung apices. Upper limi ts of normal size of the ascending thoracic aorta measuring up to 4.0 cm. Moderate atherosclerosis of the thoracic aorta and coronary arteries. Pectus excavatum deformity noted. Atherosclerosis of the c arotid arteries is also seen. Paranasal sinuses and mastoid air cells are well aerated. Mild degenera tive changes of the cervical spine. Biapical pleural parenchymal scarring in the lung apices. Calcifi ed right middle lobe benign granuloma on image 143 anteriorly. Minimal bibasilar subsegmental depende nt atelectasis. No new mediastinal adenopathy. Unenhanced abdominal viscera are slightly suboptimally evaluated given lack of intravenous contrast. Very low density 3 mm probable hepatic cyst is marked on image 148. Liver is elongated. Other too sma ll to accurately characterize hepatic lesions are seen within the left hepatic lobe on image 157 and image 161. These demonstrate no interval growth from the prior. Dextroconvex scoliosis of the mid lumbar spine is again seen. Moderate degenerative changes of the th oracolumbar spine. Moderate to severe atheromatous plaquing of the abdominal aorta and its branches. No dilated large or small bowel. Moderate degenerative changes of the hips, right greater than left. Percutaneous enteric gastric tube is present. IMPRESSION: Response to treatment. The primary left supraglottic neoplasm demonstrated a prior maximu m SUV of 16 point to 8 on the exam of 03/14/2019 and currently has an uptake of 1.63. The previously s een slightly hypermetabolic left submandibular lymph node is now hypometabolic and nonenlarged measur ing 5 mm and having a maximum SUV of only 1.42. No new evidence of metastatic disease in the chest, a bdomen, or pelvis.
== END | disposition home or self-care (01) ==
LOC: RADPETMAIN 08:40
PROVIDERS: ATTEND Radiology Radiation Oncology
DX: C32.1 Malignant neoplasm of supraglottis (principal); R59.0 Localized enlarged lymph nodes; Z92.3 Personal history of irradiation; F17.210 Nicotine dependence, cigarettes, uncomplicated
CPT/HCPCS: 78815; A9552

== ENCOUNTER 2019-12-07 06:56 | Day surgery (SDC) | payer OTHER, MEDICAID ==
[2019-12-03 16:09] VITALS: BMI 18.6
[2019-12-07 07:19] VITALS: BP 126/76; PULSE 78; RESP 16; TEMP 97.6
[2019-12-07] MEDS ORDERED: LACTATED RINGERS 1,000 ML IV ONE (07:25)
[2019-12-07] MEDS ORDERED: LIDOCAINE 1% (10MG/ML) FOR IV START INTRADERMA ONE (07:26)
[2019-12-07] MEDS ORDERED: LACTATED RINGERS 1,000 ML IV SCH (07:45)
--- NOTE | 2019-12-07 11:27 | P.PN ---
Progress Note - Text Progress Note Date: 12/07/19 Patient was scheduled for caudal epidural with lysis of adhesions. He had a previous done in June 2019 that provided him with no benefit. He's had radio pharmacy ablations of the lumbar facet joint medial branches at L3-L4, L4-L5, L5-S1. He had significant relief with the radio frequency ablation done in November and December 2018. He denies any radicular symptoms. He does complain of significant low back pain worse the morning and improves during the day. It extreme pain with flexion and extension. We will cancel his procedure today and get authorization to perform a repeat radio frequency ablation of the lumbar medial branches L3-L4, L4-L5, L5-S1 facet joints bilaterally.
== END 2019-12-07 08:17 | disposition home or self-care (01) ==
LOC: ORPAIN 06:56
PROVIDERS: ATTEND Anesthesiology
DX: G96.12 Meningeal adhesions (cerebral) (spinal) (principal); Z53.8 Procedure and treatment not carried out for other reasons

== ENCOUNTER → 2020-02-19 | Outpatient (CLI) | payer OTHER | END | disposition home or self-care (01) | LOC: LABWHC1 09:34 | DX: Z11.59 Encounter for screening for other viral diseases (principal) | CPT/HCPCS: 87635 ==

== ENCOUNTER → 2020-02-23 | Day surgery (SDC) | payer OTHER ==
[2020-02-18 12:47] VITALS: BMI 18.3
[~2020-02-23] MED LIST changes: -DEXAMETHASONE SOD PHOSPHATE 10 MG/ML 1 ML VIAL IV ONE; -DEXAMETHASONE SOD PHOSPHATE 4 MG/ML 1 ML VIAL IV ONE; -FAMOTIDINE 20 MG/2 ML VIAL IV ONE; +IV FLUID CONTINUATION 600 ML IV ONE; -KETOROLAC 30 MG/ML 1 ML VIAL IVP SCH; +LIDOCAINE 1% (10MG/ML) FOR IV START INTRADERMA ONE; -LIDOCAINE 1% 20 ML VIAL (10MG/ML) FOR IV START INTRADERMA PRN; +LIDOCAINE 4% (PF) 5 ML AMP ONE; -METOCLOPRAMIDE 5 MG/ML 2 ML VIAL IVP PRN; +MIDAZOLAM 2 MG/2 ML VIAL ONE; -ONDANSETRON 4 MG/2 ML VIAL IVP ONE; +fentaNYL (PF) 50 MCG/ML 2 ML AMP ONE
[2020-02-23 12:25] VITALS: RESP 16; TEMP 98.9
--- NOTE | 2020-02-23 13:28 | P.PCN ---
Date of Procedure: 02/23/20 Procedure(s) Performed: PREOPERATIVE DIAGNOSIS: Lumbar Spondylosis POSTOPERATIVE DIAGNOSIS: Same PROCEDURES: Radiofrequency ablation of the L2, L3, L4, L5 medial branches for facets L3 - 4, L4-5, L5-S1 with fluoroscopic guidance on the left side SURGEON: Kishan Scott MD. ANESTHESIA: Lidocaine 1% 5 mL, Moderate sedation with intravenous Versed and fentanyl, sedation time 19 mins EBL: Minimal Fluoroscopy was used for the procedure and images were saved in the radiology portion of the chart. PROCEDURE INDICATION: The patient with low back pain secondary to lumbar facet arthropathy who had more than 50% relief of pain with previous diagnostic lumbar medial branch block X2. PROCEDURE DESCRIPTION / TECHNIQUE: The patient was seen and identified in the preoperative area. Risks, benefits, complications, including but not limited to risk of infection ,bleeding , allergic reactions to the medications and incomplete pain relief , and alternatives were discussed with the patient, the patient agreed to proceed with the procedure and signed the consent. IV was started. The operative site was marked. Patient was taken to the OR and time out was completed. The patient was placed in the prone position on the procedure table. The lumbar area was prepped and draped in the usual sterile fashion. . Vital signs were closely monitored during the procedure .IV sedation was used during the procedure to decrease patients anxiety. Using AP and then oblique fluoroscopy, the "eye of the Donovan dog" corresponding to the connection between the superior and transverse articular processes of the L3, L4 and L5 as well as the sacral ala were identified, marked, and localized with 1% lidocaine. Subsequently, an 18 guage 100 mm radiofrequency cannula with a 10-mm active tip was advanced guided by fluoroscopy to the identified target at each site. Needle positioning was confirmed on AP, oblique and lateral fluoroscopy. Motor testing at 2.5 Hz was done with paraspinal muscle stimulation only, and no radicular symptoms down the legs. Then 1 mL of 4% lidocaine was injected in each site. Radiofrequency thermocoagulation at 80 degrees celsius for 90 seconds was then performed. [place] were removed. Sterile dressings were applied. COMPLICATIONS: No acute complications. DISPOSITION / PLANS: The patient was placed in a supine position and transferred to the recovery area in a stable condition for observation and was discharged from the recovery room after meeting discharge criteria. Home discharge instructions given to the patient by the staff. The patient will follow up for right sided radiofrequency in 2 weeks.
[2020-02-23 13:57] VITALS: BP 121/76; PULSE 79
--- NOTE | 2020-02-23 14:32 | FL ---
Fluoroscopy HISTORY: Pain 11 seconds fluoroscopy time supplied to the referring clinician. 10 intraoperative C-arm images docu ment the procedure. See dictated report from anesthesia.
== END ==
LOC: ORPAIN 10:50
PROVIDERS: ATTEND Anesthesiology
DX: M47.816 Spondylosis without myelopathy or radiculopathy, lumbar region (principal)
CPT/HCPCS: 64635; 64636 ×2; J2001; J2250; J3010; 99152

== ENCOUNTER 2020-03-10 06:19 | Day surgery (SDC) | payer OTHER ==
[2020-03-09 08:19] VITALS: BMI 18.3
[~2020-03-10 06:19] MED LIST changes: -IV FLUID CONTINUATION 600 ML IV ONE; -LIDOCAINE 1% (10MG/ML) FOR IV START INTRADERMA ONE; -LIDOCAINE 4% (PF) 5 ML AMP ONE; -MIDAZOLAM 2 MG/2 ML VIAL ONE; -fentaNYL (PF) 50 MCG/ML 2 ML AMP ONE
[2020-03-10 06:41] VITALS: TEMP 97.8
[2020-03-10] MEDS ORDERED: LIDOCAINE 1% (10MG/ML) FOR IV START INTRADERMA ONE (06:41)
[2020-03-10] MEDS ORDERED: LACTATED RINGERS 1,000 ML IV ONE (06:41)
[2020-03-10] MEDS ORDERED: TRIAMCINOLONE ACETONIDE 40 MG/ML 1 ML VIAL ONE (07:33)
[2020-03-10] MEDS ORDERED: MIDAZOLAM 2 MG/2 ML VIAL ONE (07:33)
[2020-03-10] MEDS ORDERED: ROPIVACAINE 5MG/ML 20ML VIAL ONE (07:33)
[2020-03-10] MEDS ORDERED: fentaNYL (PF) 50 MCG/ML 2 ML AMP ONE (07:33)
[2020-03-10] MEDS ORDERED: LIDOCAINE 4% (PF) 5 ML AMP ONE (07:33)
[2020-03-10] MEDS ORDERED: IV FLUID CONTINUATION 1,000 ML IV ONE (08:04)
[2020-03-10 08:09] VITALS: RESP 16
--- NOTE | 2020-03-10 08:12 | P.PCN ---
Date of Procedure: 03/10/20 Description of Procedure: PREOPERATIVE DIAGNOSIS: Lumbar Spondylosis, Lumbar Scoliosis POSTOPERATIVE DIAGNOSIS: Same PROCEDURES: Radiofrequency ablation of the L2, L3, L4, L5 medial branches for facets L3 -4, L4-5, L5-S1 with fluoroscopic guidance on the RIGHT side SURGEON: Wellington Arzola MD. ANESTHESIA: Lidocaine 1% 5 mL per needle insertion site, Moderate sedation with intravenous Versed 2mg and 150mcq fentanyl EBL: Minimal Fluoroscopy was used for the procedure and images were saved in the radiology portion of the chart. PROCEDURE INDICATION: The patient with low back pain secondary to lumbar facet arthropathy who had more than 50% relief of pain with previous diagnostic lumbar medial branch block X2. PROCEDURE DESCRIPTION / TECHNIQUE: The patient was seen and identified in the preoperative area. Risks, benefits, complications, including but not limited to risk of infection ,bleeding , allergic reactions to the medications and incomplete pain relief , and alternatives were discussed with the patient, the patient agreed to proceed with the procedure and signed the consent. IV was started. The operative site was marked. Patient was taken to the OR and time out was completed. The patient was placed in the prone position on the procedure table. The lumbar area was prepped and draped in the usual sterile fashion. Vital signs were closely monitored during the procedure, IV sedation was used during the procedure to decrease patients anxiety. Using AP and then oblique fluoroscopy, the "eye of the Donovan dog" corresponding to the connection between the superior and transverse articular processes of the RIGHT L3, L4 and L5 as well as the sacral ala were identified, marked, and localized with 1% lidocaine. Subsequently, an 18 guage 100 mm radiofrequency cannula with a 10-mm active tip was advanced guided by fluoroscopy to the identified target at each site. Needle positioning was confirmed on AP, oblique and lateral fluoroscopy. Motor testing at 2.5 Hz was done with paraspinal muscle stimulation only, and no radicular symptoms down the legs. Then 1 mL of 4% lidocaine with 5mg Kenalog was injected in each site. Radiofrequency thermocoagulation at 80 degrees celsius for 90 seconds was then performed. Carrier were withdrawn 1-2mm and rotated 180 degrees, imaging confirmed appropriate placement, a second burn was performed. Carrier were removed. Sterile dressings were applied. COMPLICATIONS: No acute complications. DISPOSITION / PLANS: The patient was placed in a supine position and transferred to the recovery area in a stable condition for observation and was discharged from the recovery room after meeting discharge criteria. Home dischar ge instructions given to the patient by the staff. The patient will follow up in 4-6 weeks for eval.
--- NOTE | 2020-03-10 08:17 | FL ---
Fluoroscopy INDICATION: Pain FINDINGS: Fluoroscopy time: 19 seconds. Images obtained: 0. IMPRESSIONS: 1. Documentation of fluoroscopy.
[2020-03-10 08:19] VITALS: BP 130/84; PULSE 77
== END 2020-03-10 08:33 | disposition home or self-care (01) ==
LOC: ORPAIN 06:19
PROVIDERS: ATTEND Anesthesiology
DX: M47.816 Spondylosis without myelopathy or radiculopathy, lumbar region (principal); M41.9 Scoliosis, unspecified
CPT/HCPCS: 64635; 64636 ×2; J2001; J2250; J3301; J3010; J2795; 99152

== ENCOUNTER → 2020-04-14 | Outpatient (CLI) | payer OTHER ==
--- NOTE | 2020-04-14 14:11 | P.PAINPG ---
Subjective Progress Note Date: 04/14/20 This is a follow-up visit for this 64-year-old male with a chronic history of severe low back pain, patient had postlaminectomy pain syndrome lumbar area and he had lumbar spondylosis with lumbar facet arthropathy, status post RFA of the medial branch lumbar area, which was done recently, he reports his left side feeling great he had no pain but he continued to have severe low back pain and pain in the right side, the pain is constant and increases with any activity is not able to do any activities secondary to an intensity of the pain, the pain is constant and the low back area radiating to the buttock , and is not radiated to the lower extremity, he denies any motor or sensory deficit Objective - Vital Signs Vital signs: Vital Signs Temp Pulse 84 04/14/20 13:37 Resp 16 04/14/20 13:37 BP 140/90 04/14/20 13:37 Pulse Ox 100 04/14/20 13:37 - Exam Physical Examinations : -Constitutiona : Cooperative , not in acute distress . -HEENT : nech : supple , no Lymphadenopathy , normal thyroid size . : eyes : no ptosis , no icterus, no photophobia . - neurologic : Cranial nerve II to XII intact , no focal neurological deffecit . -psychatric : alert , oriented X 3 , appropriate affect , intact judgment and insight . -Lymphatic : no Lymphadenopathy . - musculoskeltal : Lumber spine moter stegnth lower extremities ,thigh and legs 5/5 Right side , 5/5 Left side deep tendon reflexes : normal Knee Jerk , normal ankle Jerk lumber facet Loading Test =positive Right , negative Left Range of motion of the lumbar spine Flexion 30 degrees, extension 10 degrees strait leg raising test = negative bilaterally Fabere test= negative bilaterally Sever tenderness over the Sacroiliac joint on the Right , and Left sides Severe tenderness over the right iliolumbar ligament. Multiple trigger point identified in the lumbar paravertebral muscles on the right side Assessment and Plan Plan: 1-lumbar spondylosis with lumbar facet arthropathy without myelopathy. 2-right iliolumbar ligament neuralgia. 3-myofascial pain syndrome and lumbar paraspinal muscles. 4-postlaminectomy pain syndrome lumbar area. Patient could benefit from right side iliolumbar ligament steroid injection under fluoroscopy guidance, and at the same time we can do right lumbar trigger point injection, patient could benefit from Flexeril 5 mg twice a day, and patient can benefit from voltaren gel applied to the right low back area twice daily, Time with Patient: Less than 30 PQRS Measure Charge Sheet Measure #130: Documentation of Current Meds in Medical Chart: Patient's medications documented in chart Measure #226: Tobacco Use: Screen & Cessation Intervention: Pt screened for tobacco use AND intervention given Measure #111: Pneumonia Vaccination: Pneumococcal vaccine NOT administered or previously given Measure #47: Advance Care Plan: Advance care planning discussed & documented, pt chose/unable to give Measure #412: Opioid Treatment Agreement: No documentation of signed opioid treatment agreement Measure #408: Opioid Therapy Follow-up Evaluation: Patient had NO f/u eval minimum every 3 months during opioid therapy Measure #317: Preventitive Care & Scrn High Bld Press & F/U: Normal blood pressure, f/u not required Measure #128: Body Mass Index (BMI) Screening & Follow-up: BMI documented BELOW normal parameters - f/u documented Measure #131: Pain Assessment & Follow-up: Pain positive & plan documented, Follow-up scheduled Measure #431: Unhealthy Alcohol Use Preventative Care & Scrn: Patient not identified as an unhealthy alcohol user PQRS Narrative: Smoking Status Current every day smoker Blood Pressure 140/90 Pain Intensity [Right Lower 5 Back] Scale Used Numeric (1 - 10) Hx Alcohol Use (MH) Yes Home Medications: Ambulatory Orders Lisinopril [Zestril] 20 mg PO HS 01/29/14 Metoprolol Tartrate [Lopressor] 12.5 mg PO BID 01/29/14 Multivitamin [Multivitamins] 1 tab PO DAILY 01/29/14 HYDROcodone/APAP 10-325MG [[place] 10-325] 1 tab PO Q8HR PRN 05/12/19 Gabapentin [Neurontin] 600 mg PO TID 02/18/20 Controlled Substance Measures - Controlled Substance Measures Is patient prescribed a controlled substance at discharge?: No
== END | disposition home or self-care (01) ==
CPT/HCPCS: 99211

== ENCOUNTER 2020-05-05 06:50 | Day surgery (SDC) | payer OTHER ==
[2020-05-02 11:44] VITALS: BMI 18.1
[2020-05-05 07:19] VITALS: TEMP 97.8
[2020-05-05] MEDS ORDERED: methylPREDNISolone ACETATE 40 MG/ML 1 ML VIAL ONE (07:21)
[2020-05-05] MEDS ORDERED: ROPIVACAINE 5MG/ML 20ML VIAL ONE (07:21)
[2020-05-05] MEDS ORDERED: IOPAMIDOL M200 10 ML VIAL ONE (07:21)
--- NOTE | 2020-05-05 07:48 | FL ---
EXAMINATION TYPE: FL guided pain mgmt statistic DATE OF EXAM: 05/05/2020 CLINICAL HISTORY: Low back pain. TECHNIQUE: Fluoroscopy. COMPARISON: None. FINDINGS: Fluoroscopic guidance was provided during pain relief procedure performed by Dr. Fowler. A total of 2 seconds of fluoroscopic time was utilized during the procedure and single spot image is acquired. Single image acquired shows needle localization over the spine. IMPRESSION: As Above.
[2020-05-05 07:51] VITALS: BP 137/90; PULSE 74; RESP 18
--- NOTE | 2020-05-05 09:06 | P.PCN ---
Description of Procedure: PROCEDURE NOTE: Right iliolumbar ligament injection under fluoroscopy PROCEDURE DATE: 05/05/20 PATIENT NAME: Amandeep Garcia DATE OF : 1955 ATTENDING PHYSICIAN: Ellis Fowler MD PREOPERATIVE DIAGNOSIS: Myofascial pain POSTOPERATIVE DIAGNOSIS: Same. PROCEDURE PERFORMED: Right iliolumbar lumbar ligament injection SEDATION WAS NOT USED FLUOROSCOPY WAS USED ESTIMATED BLOOD LOSS: None INDICATIONS FOR PROCEDURE: This is a 64 year old male with a clinical picture consistent with myofascial pain syndrome in the low back who has had lumbar RFA's in the past with some relief. He had pain consistent in the iliolumbar ligament area. PROCEDURE AND FINDINGS: The patient was greeted in the pre procedure holding area. The risk, benefits and alternatives to the procedure were again reviewed with the patient and written informed consent was placed in the chart. Prior to the procedure a time out was completed, verifying correct patient, procedure, site, positioning, and implants and/or special equipment. The area to be injected was identified, cleaned and prepped with alcohol prep pads. A 25G 3.5 inch needle was inserted into the right iliolumbar ligament under fluroscopy. Contrast dye was injected only after there was confirmed egative aspiration of blood. At this point, a total 5 mL of injectate (4 mL of 0.5% ropivacaine, 1 mL of 40 mg/mL Depomedrol) was injected easily. Patient tolerated the procedure well Patient was initially scheduled to have another lumbar trigger points injected in the paraspinal musculature, however patient's that he did not have pain anywhere else outside of the injection site. Follow up will be as needed Complications: none
== END 2020-05-05 08:00 | disposition home or self-care (01) ==
LOC: ORPAIN 06:50
PROVIDERS: ATTEND Anesthesiology
DX: M79.18 Myalgia, other site (principal)
CPT/HCPCS: 20550; J1030; Q9966; J2795

== ENCOUNTER → 2021-01-11 | Outpatient (CLI) | payer OTHER ==
[2021-01-11 10:30] VITALS: BP 165/92; PULSE 79; RESP 18; TEMP 97.8
--- NOTE | 2021-01-11 11:00 | P.PN ---
Subjective Progress Note Date: 01/11/21 This is a follow-up visit for this 89-lybbh-trd male with a chronic history of severe low back pain, patient had postlaminectomy pain syndrome lumbar area ,and he had lumbar spondylosis with lumbar facet arthropathy, status post RFA of the medial branch lumbar area which was done February 2020, he he did very well after the RFA, until recently when he started having severe low back pain, patient also diagnosed with oropharyngeal cancer, status post radiation therapy , the pain is constant and increases with any activity is not able to do any activities secondary to an intensity of the pain, the pain is constant and the low back area radiating to the buttock , and is not radiated to the lower extremity, he denies any motor or sensory deficit Physical Examinations : -Constitutiona : Cooperative , not in acute distress . -HEENT : nech : supple , no Lymphadenopathy , normal thyroid size . : eyes : no ptosis , no icterus, no photophobia . - neurologic : Cranial nerve II to XII intact , no focal neurological deffecit . -psychatric : alert , oriented X 3 , appropriate affect , intact judgment and insight . -Lymphatic : no Lymphadenopathy . - musculoskeltal : Lumber spine moter stegnth lower extremities ,thigh and legs 5/5 Right side , 5/5 Left side deep tendon reflexes : normal Knee Jerk , normal ankle Jerk lumber facet Loading Test = positive bilaterally Range of motion of the lumbar spine Flexion 30 degrees, extension 10 degrees strait leg raising test = negative bilaterally Fabere test= negative bilaterally Sever tenderness over the Sacroiliac joint on the Right , and Left sides Assessment and Plan 1-lumbar spondylosis with lumbar facet arthropathy without myelopathy. 2-postlaminectomy pain syndrome lumbar area. 3-bilateral sacroiliitis, Patient could benefit from repeat RFA of the medial branch lumbar area l2,l3 ,l4,l5 bilaterally Patient could benefit from pain medication tolerance 3 every 8 hours dispense 90 narcotic agreement signed, risk and benefit and complications of onset the fifth of the narcotics discussed with the patient Urine tox screen ordered today - PQRS measures = - Patient's medications are documented in the chart. -Tobacco use is positive,and counseling.Given. -Patient's has not received pneumococcal vaccine. -Advanced care planning discussed, patient not eligible. -Opiate contract signed. -Pain positive and follow-up visit/procedure is scheduled. -Patient's blood pressure measured [165/92 ] , and documented in the record ,and patient will follow up with the primary care. -Patient's weight was measured and body mass index [15.9 ] below normal limits and counseling was done. and patient instructed to follow-up with the primary care physician. -Patient was not identified as an unhealthy alcohol user Time with Patient: Less than 30 Objective - Vital Signs Vital signs: Vital Signs Temp 97.8 F 01/11/21 10:26 Pulse 79 01/11/21 10:26 Resp 18 01/11/21 10:26 BP 165/92 01/11/21 10:26 Pulse Ox 99 01/11/21 10:26
== END ==
LOC: PNWHC3 09:58
PROVIDERS: ATTEND Specialist
DX: M47.816 Spondylosis without myelopathy or radiculopathy, lumbar region (principal); M96.1 Postlaminectomy syndrome, not elsewhere classified; M46.1 Sacroiliitis, not elsewhere classified
CPT/HCPCS: 80307; 99212; G0482

== ENCOUNTER 2021-02-10 06:17 | Day surgery (SDC) | payer OTHER ==
[2021-02-07 11:57] VITALS: BMI 16.2
[2021-02-10 07:11] VITALS: TEMP 97.5
[2021-02-10] MEDS ORDERED: LACTATED RINGERS 1,000 ML IV ONE (07:11)
[2021-02-10] MEDS ORDERED: LIDOCAINE 1% INJ 10MG/ML (20 ML MDV) ONE (07:43)
[2021-02-10] MEDS ORDERED: ROPIVACAINE 5MG/ML 20ML VIAL ONE (07:43)
[2021-02-10] MEDS ORDERED: MIDAZOLAM 2 MG/2 ML VIAL ONE (07:43)
[2021-02-10] MEDS ORDERED: fentaNYL (PF) 50 MCG/ML 2 ML AMP ONE (07:43)
[2021-02-10] MEDS ORDERED: IV FLUID CONTINUATION 1,000 ML IV ONE (08:13)
[2021-02-10 08:15] VITALS: RESP 18
[2021-02-10 08:31] VITALS: BP 145/78; PULSE 88
--- NOTE | 2021-02-10 08:48 | FL ---
Fluoroscopy History: PAIN 15 SEC FL
--- NOTE | 2021-03-04 17:47 | P.PCN ---
Date of Procedure: 02/10/21 Description of Procedure: PREOPERATIVE DIAGNOSIS: Lumbar Spondylosis, Lumbar Scoliosis POSTOPERATIVE DIAGNOSIS: Same PROCEDURES: Radiofrequency ablation of the L2, L3, L4, L5 medial branches for facets L3 -4, L4-5, L5-S1 with fluoroscopic guidance on the RIGHT side SURGEON: Ellis Fowler MD ANESTHESIA: Lidocaine 1% 5 mL per needle insertion site, Moderate sedation with anesthesia team EBL: Minimal Fluoroscopy was used for the procedure and images were saved in the radiology portion of the chart. PROCEDURE INDICATION: The patient with low back pain secondary to lumbar facet arthropathy who had more than 50% relief of pain with previous diagnostic lumbar medial branch block X2. PROCEDURE DESCRIPTION / TECHNIQUE: The patient was seen and identified in the preoperative area. Risks, benefits, complications, including but not limited to risk of infection ,bleeding , allergic reactions to the medications and incomplete pain relief , and alternatives were discussed with the patient, the patient agreed to proceed with the procedure and signed the consent. IV was started. The operative site was marked. Patient was taken to the OR and time out was completed. The patient was placed in the prone position on the procedure table. The lumbar area was prepped and draped in the usual sterile fashion. Vital signs were closely monitored during the procedure, IV sedation was used during the procedure to decrease patients anxiety. Using AP and then oblique fluoroscopy, the "eye of the Donovan dog" corresponding to the connection between the superior and transverse articular processes of the RIGHT L3, L4 and L5 as well as the sacral ala were identified, marked, and localized with 1% lidocaine. Subsequently, an 18 guage 100 mm radiofrequency cannula with a 10-mm active tip was advanced guided by fluoroscopy to the identified target at each site. Needle positioning was confirmed on AP, oblique and lateral fluoroscopy. Motor testing at 2.5 Hz was done with paraspinal muscle stimulation only, and no radicular symptoms down the legs. Then 1 mL of 4% lidocaine with 5mg Kenalog was injected in each site. Radiofrequency thermocoagulation at 80 degrees celsius for 90 seconds was then performed. Clemmons were withdrawn 1-2mm and rotated 180 degrees, imaging confirmed appropr iate placement, a second burn was performed. Clemmons were removed. Sterile dressings were applied. COMPLICATIONS: No acute complications. DISPOSITION / PLANS: The patient was placed in a supine position and transferred to the recovery area in a stable condition for observation and was discharged from the recovery room after meeting discharge criteria. Home discharge instructions given to the patient by the staff. The patient will follow up in 4-6 weeks for eval.
== END 2021-02-10 08:48 | disposition home or self-care (01) ==
LOC: ORPAIN 06:17
PROVIDERS: ATTEND Anesthesiology
DX: M47.816 Spondylosis without myelopathy or radiculopathy, lumbar region (principal); M41.9 Scoliosis, unspecified; F17.200 Nicotine dependence, unspecified, uncomplicated; I10 Essential (primary) hypertension; Z85.21 Personal history of malignant neoplasm of larynx; Z92.3 Personal history of irradiation; Z79.891 Long term (current) use of opiate analgesic; Z79.899 Other long term (current) drug therapy
CPT/HCPCS: 64636 ×2; 64635; J2250; J2001; J3010; J2795

== ENCOUNTER 2021-03-10 07:33 | Day surgery (SDC) | payer OTHER ==
[2021-03-09 08:48] VITALS: BMI 17.2
[2021-03-10] MEDS ORDERED: LACTATED RINGERS 1,000 ML IV SCH (07:38)
[2021-03-10 07:51] VITALS: RESP 16; TEMP 98.2
[2021-03-10] MEDS ORDERED: LIDOCAINE 1% (10MG/ML) FOR IV START INTRADERMA ONE (07:55)
[2021-03-10] MEDS ORDERED: MIDAZOLAM 2 MG/2 ML VIAL ONE (08:06)
[2021-03-10] MEDS ORDERED: ROPIVACAINE 5MG/ML 20ML VIAL ONE (08:06)
[2021-03-10] MEDS ORDERED: methylPREDNISolone ACETATE 40 MG/ML 1 ML VIAL ONE (08:06)
[2021-03-10] MEDS ORDERED: fentaNYL (PF) 50 MCG/ML 2 ML AMP ONE (08:06)
--- NOTE | 2021-03-10 08:36 | P.PCN ---
Date of Procedure: 03/10/21 Procedure(s) Performed: PREOPERATIVE DIAGNOSIS: 1-Lumbar Spondylosis with Facet Arthropathy without myelopathy. 2- Lumber degenerative disc disease. 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 2- Lumber degenerative disc disease. PROCEDURES : Left Radiofrequency thermocoagulation, L2 ,L3 , L4 , and L5 medial branch, with fluoroscopic guidance (fluoroscopy images available in the radiology department) ( to denervate the facet joint at Left L3-4 ,L4-5 ,and L5-S1 levels ). ANESTHESIA: monitored anesthesia care as per anesthesia department . EBL: Minimal PROCEDURE INDICATION: The patient with low back pain secondary to lumbar facet arthropathy who had more than 50% relief of her pain with previous diagnostic lumbar medial branch block with bupivacaine. PROCEDURE DESCRIPTION / TECHNIQUE: The patient was seen and identified in the preoperative area. Risks, benefits, complications, including but not limited to risk of infection ,bleeding , allergic reactions to the medications and no complete pain releife , and alternatives were discussed with the patient, the patient agreed to proceed with the procedure and signed the consent. IV was started. Vital signs remained stable throughout the procedure. Patient was taken to the OR and time out was completed. The patient was placed in the prone position on the procedure table. The lumber area was prepped and draped in the usual sterile fashion. . Vital signs were closely monitored during the procedure .IV sedation was used during the procedure to decrease patients anxiety. Using AP and then oblique fluoroscopy, the ``eye of the Donovan dog padma esponding to the connection between the superior and transverse articular processes of Left L2 , L3, L4, and L5 were identified, marked, and localized with 1% lidocaine. Subsequently, a 18 -dw radiofrequency cannula with a 10-mm active tip was advanced guided by fluoroscopy to each of the``eyes of the Donovan dog at left L2 , L3, L4, and L5. Each site then underwent sensory testing at 50 Hz and 0 to 1 volt and motor testing at 2.5 Hz and 0 to 3 volt with local stimulation, but no radicular symptoms down the legs. Thereafter each sites underwent radiofrequency thermocoagulation at 80 degrees celsius for 90 seconds after injecting 0.5 ml of PF Ropivacaine 1ml, then after the thermocoagulation done , 1 ml of the block solution containing Depo-Medrol 40 mg and 3 ml of Ropivacaine 0.5% was injected at the Left L2, L3 , L4 , and L5 , levels after negative aspiration of CSF and blood and with no paresthesias. Cannulas were retracted while injecting lidocaine 1% until the needle is out. At the end of the procedure, the skin was cleansed and bandages were applied. COMPLICATIONS: No acute complications. DISPOSITION / PLANS: The patient was placed in a supine position and transferred to the recovery area in a stable condition for observation and was discharged from the recovery room after meeting discharge criteria. Home discharge instructions given to the patient by the staff. The patient was reexamined prior to discharge. The patient will schedule a follow up in the clinic in 2-4 weeks.
[2021-03-10] MEDS ORDERED: IV FLUID CONTINUATION 1,000 ML IV ONE (08:39)
[2021-03-10 08:41] VITALS: BP 108/73; PULSE 78
== END 2021-03-10 09:10 | disposition home or self-care (01) ==
LOC: ORPAIN 07:33
PROVIDERS: ATTEND Specialist
DX: M47.816 Spondylosis without myelopathy or radiculopathy, lumbar region (principal); M51.36 Other intervertebral disc degeneration, lumbar region; I42.9 Cardiomyopathy, unspecified; I11.0 Hypertensive heart disease with heart failure; I50.9 Heart failure, unspecified; F17.200 Nicotine dependence, unspecified, uncomplicated; Z85.21 Personal history of malignant neoplasm of larynx
CPT/HCPCS: 64635; 64636 ×2; J2250; J1030; J3010; J2795

== ENCOUNTER 2021-03-20 06:22 | Inpatient (IN) | payer OTHER, MEDICARE ==
[2021-03-20] MEDS ORDERED: KETOROLAC 15 MG/ML 1 ML VIAL IVP STA (06:56)
--- NOTE | 2021-03-20 07:17 | ED ---
Fall HPI <Clay Hall - Last Filed: 03/20/21 08:40> - General Source: patient, family Mode of arrival: ambulatory <Georgette Crockett - Last Filed: 03/20/21 09:23> - General Chief Complaint: Fall Stated Complaint: Fall, Rib Pain Time Seen by Provider: 03/20/21 06:52 - History of Present Illness Initial Comments: Patient is a 65-year-old male with history of heavy alcohol abuse, chronic back pain, presenting to the emergency Department with complaints of right-sided rib pain and chest pain that started 2 days ago. Patient had a slip and fall off his boat onto the deck 2 mornings ago. He continues to have chest and rib pain and came in for evaluation. Patient states he has been taking Tylenol threes for his discomfort, has helped a little bit. Patient states he did not hit his head, he is denying headache, blurry vision, any facial pain. He is not on blood thinners. He denies any pain in his extremities. He states he does have some thoracic discomfort, he does get pain injections. He's had no spinal huston rgeries. He denies any nausea or vomiting. He states the chest pain is mostly in the front, radiates to the right side. He has no further complaints at this time. Upon arrival to the ER, he has tachycardia at 115, 88% on room air, rest of vitals within normal limits. (Georgette Crockett) - Related Data Home Medications Medication Instructions Recorded Confirmed Metoprolol Tartrate [Lopressor] 12.5 mg PO BID 01/29/14 03/20/21 lisinopriL [Zestril] 20 mg PO HS 01/29/14 03/20/21 Gabapentin [Neurontin] 600 mg PO TID 02/18/20 03/20/21 Previous Rx's Medication Instructions Recorded Acetaminophen-Codeine 300-30mg 1 tab PO Q8H PRN 30 Days #90 tablet 01/11/21 [Tylenol w/codeine #3] Allergies Allergy/AdvReac Type Severity Reaction Status Date / Time No Known Allergies Allergy Verified 03/20/21 09:01 Review of Systems ROS Other: All systems not noted in ROS Statement are negative. <Clay Hall - Last Filed: 03/20/21 08:40> ROS Other: All systems not noted in ROS Statement are negative. <KeiraGeorgette Jerad - Last Filed: 03/20/21 09:23> ROS Statement: Those systems with pertinent positive or pertinent negative responses have been documented in the HPI. 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 CARDIOMYOPATHY. VARICOSE VEINS. CHRONIC BACK PAIN, DIFFICULTY WALKING DISTANCE OR SITTING, DRY MOUTH. History of Any Multi-Drug Resistant Organisms: None Reported Past Surgical History: Back Surgery, Heart Catheterization Additional Past Surgical History / Comment(s): COLONOSCOPY. PAIN CLINIC PROC'S, BACK SURGERY AT [facility] IN [place]. Removed all teeth 2020 Past Anesthesia/Blood Transfusion Reactions: Previous Problems w/ Anesthesia Additional Past Anesthesia/Blood Transfusion Reaction / Comment(s): WITH 2 PAIN PROC WAS AWAKE, PROCEDURE VERY PAINFUL Past Psychological History: No Psychological Hx Reported Smoking Status: Current every day smoker Past Alcohol Use History: Abuse, Daily, Heavy Past Drug Use History: Marijuana - Past Family History Father Family Medical History: No Reported History Mother Family Medical History: No Reported History <KeiraGeorgette L - Last Filed: 03/20/21 09:23> General Exam Limitations: no limitations <KeiraGeorgette L - Last Filed: 03/20/21 09:23> - General Exam Comments Initial Comments: GENERAL: Patient is nontoxic and in moderate distress. HEAD: Atraumatic, normocephalic. There are no hematomas, no signs of basal skull fracture. EYES: Pupils equal round and reactive to light, extraocular movements intact, sclera anicteric, conjunctiva are normal. Eyelids were unremarkable. ENT: TMs normal, nares patent, oropharynx clear without exudates. Moist mucous membr anes. No tenderness on the facial bones. NECK: Normal range of motion, supple without lymphadenopathy or JVD. There is no midline tenderness. LUNGS: Unlabored respirations. Breath sounds clear to auscultation bilaterally and equal. No wheezes rales or rhonchi. HEART: Tachycardia rate and rhythm without murmurs, rubs or gallops. ABDOMEN: Soft, nontender, normoactive bowel sounds. No guarding, no rebound. No masses appreciated. : Deferred MUSCULOSKELETAL: Normal extremities with adequate strength and normal range of motion, no pitting or edema. No clubbing or cyanosis. Patient has tenderness with palpation of the right ribs, there is bruising and swelling present compared to the left side. Increased pain with inspiration. NEUROLOGICAL: Patient is alert and oriented x 3. Motor and sensory are also intact. Cranial nerves II through XII grossly intact. Symmetrical smile. Normal speech, normal gait. PSYCH: Normal mood, normal affect. SKIN: Warm, Dry, normal turgor, no rashes. Bruising noted to the right lateral ribs, crepitus felt on the right side, right upper trap area. (Georgette Crockett) Course Vital Signs 03/20/21 03/20/21 03/20/21 06:26 08:13 08:28 Temperature 98.2 F Pulse Rate 115 H 110 H 105 H Respiratory 16 18 18 Rate Blood Pressure 165/103 177/108 178/104 O2 Sat by Pulse 88 L 92 L 93 L Oximetry 03/20/21 03/20/21 03/20/21 08:30 08:35 08:40 Temperature Pulse Rate 112 H 114 H 102 H Respiratory 17 16 16 Rate Blood Pressure 201/125 212/130 201/125 O2 Sat by Pulse 94 L 95 93 L Oximetry 03/20/21 03/20/21 03/20/21 08:55 09:10 09:12 Temperature Pulse Rate 97 92 90 Respiratory 16 16 16 Rate Blood Pressure 173/111 180/116 180/116 O2 Sat by Pulse 93 L 93 L 94 L Oximetry Procedures - Chest Tube Insertion Consent Obtained: written consent Side of Procedure: right Indication: Pneumothorax (thoravent) Placed on monitor/pulse oximetry: Yes Site Prep: Sterile Drape Applied, Other Local Anesthesia: Lidocaine 1%, With Epi Insertion Site: Other (anterior 2nd IC Space) Scalpel: #11 Tube Size (Albanian): Other (thoravent) Sutured in Place: Yes Type of Suture: Nylon Attached to Suction: Yes Type of Suction: Pleuravac Repeat X-ray Results: Lung Inflated Patient Tolerated Procedure: well - Procedural Sedation Procedural Sedation Start Time: 08:28 Procedural Sedation Stop Time: 08:40 Indications: other ASA Class: II Mallampati Airway Score: 2 Preparation: cardiac cath technologist applied, pulse oximeter, capnometry used, supple mental O2 applied Ketamine Dose: 48 Complications: none Patient Tolerated Procedure: well <Clay Hall - Last Filed: 03/20/21 08:40> Medical Decision Making - Lab Data Result diagrams: 03/20/21 07:15 03/20/21 07:15 <Clay Hall - Last Filed: 03/20/21 08:40> - Lab Data Result diagrams: 03/20/21 07:15 03/20/21 07:15 <Georgette Crockett - Last Filed: 03/20/21 09:23> - Medical Decision Making Patient is a 65-year-old male here after a slip and fall 2 mornings ago. Patient slipped and fell when he was trying to get out of his boat onto the dock. He did not hit his head. He is here for severe right-sided rib pain, chest pain and some mild back discomfort. Patient was tachycardic upon arrival, hypoxia 88%. Chest x-ray showed a large right-sided pneumothorax and multiple right rib fractures. Labs showed a sodium 121, potassium of 5.4, troponin is normal. Chest tube was done by Dr. Hall. Repeat chest x-ray shows improvement of the right pneumothorax. Patient will be admitted with consult with pulmonology, anesthesia. Dr. Burks is accepting. (Georgette Crockett) - Lab Data Lab Results 03/20/21 03/20/21 03/20/21 Range/Units 07:15 07:15 07:15 WBC 14.8 H (3.8-10.6) k/uL RBC 4.54 (4.30-5.90) m/uL Hgb 16.8 (13.0-17.5) gm/dL Hct 46.0 (39.0-53.0) % MCV 101.3 H (80.0-100.0) fL MCH 36.9 H (25.0-35.0) pg MCHC 36.4 (31.0-37.0) g/dL RDW 12.1 (11.5-15.5) % Plt Count 140 L (150-450) k/uL MPV 8.8 Neutrophils % 93 % Lymphocytes % 2 % Monocytes % 4 % Eosinophils % 1 % Basophils % 0 % Neutrophils # 13.8 H (1.3-7.7) k/uL Lymphocytes # 0.2 L (1.0-4.8) k/uL Monocytes # 0.6 (0-1.0) k/uL Eosinophils # 0.1 (0-0.7) k/uL Basophils # 0.0 (0-0.2) k/uL Sodium 121 L (137-145) mmol/L Potassium 5.4 H (3.5-5.1) mmol/L Chloride 88 L (98-107) mmol/L Carbon Dioxide 25 (22-30) mmol/L Anion Gap 8 mmol/L BUN 8 L (9-20) mg/dL Creatinine 0.49 L (0.66-1.25) mg/dL Est GFR (CKD-EPI)AfAm >90 (>60 ml/min/1.73 sqM) Est GFR (CKD-EPI)NonAf >90 (>60 ml/min/1.73 sqM) Glucose 102 H (74-99) mg/dL Calcium 9.4 (8.4-10.2) mg/dL Magnesium 2.2 (1.6-2.3) mg/dL Total Bilirubin 1.6 H (0.2-1.3) mg/dL AST 59 (17-59) U/L ALT 53 H (4-49) U/L Alkaline Phosphatase 132 H (38-126) U/L Troponin I <0.012 (0.000-0.034) ng/mL Total Protein 7.0 (6.3-8.2) g/dL Albumin 4.3 (3.5-5.0) g/dL - EKG Data EKG Comments: Sinus tach, biatrial enlargement, right ventricular hypertrophy, anterior lateral infarct, age undetermined. This is similar to his previous on 02/13/2019. No signs of an acute ischemic process. Ventricular rate 104, DC interval 146, QT 342. (Georgette Crockett) Critical Care Time Critical Care Time: Yes Total Critical Care Time: 37 (Fall 2 days ago, traumatic multiple right rib fractures with large pneumothorax, chest tube inserted. Patient will be admitted.) <Georgette Crockett - Last Filed: 03/20/21 09:23> Disposition <Clay Hall - Last Filed: 03/20/21 08:40> Is patient prescribed a controlled substance at d/c from ED?: No Decision Date: 03/20/21 Decision Time: 08:49 <Georgette Crockett - Last Filed: 03/20/21 09:23> Clinical Impression: Fall, Traumatic fracture of ribs of right side with pneumothorax, Hyponatremia Disposition: ADMITTED IP TO THIS HOSP Condition: Stable
[2021-03-20 07:37] LABS: ALT 53 U/L (4-49); AST 59 U/L (17-59); African American GFR (CKD) >90 (>60 ml/min/1.73 sqM); Albumin 4.3 g/dL (3.5-5.0); Alkaline Phosphatase 132 U/L (38-126); Anion Gap 8 mmol/L; Blood Urea Nitrogen 8 mg/dL (9-20); Calcium 9.4 mg/dL (8.4-10.2); Carbon Dioxide 25 mmol/L (22-30); Chloride 88 mmol/L (98-107); Glucose 102 mg/dL (74-99); Magnesium 2.2 mg/dL (1.6-2.3); Non-African American GFR(CKD) >90 (>60 ml/min/1.73 sqM); Potassium 5.4 mmol/L (3.5-5.1); Sodium 121 mmol/L (137-145); Total Bilirubin 1.6 mg/dL (0.2-1.3)
[2021-03-20 07:43] LABS: Basophils % (A) 0 %; Eosinophils # (A) 0.1 k/uL (0-0.7); Eosinophils % (A) 1 %; HGB 16.8 gm/dL (13.0-17.5); Lymphocytes # (A) 0.2 k/uL (1.0-4.8); Lymphocytes % (A) 2 %; MCH 36.9 pg (25.0-35.0); MCHC 36.4 g/dL (31.0-37.0); MCV 101.3 fL (80.0-100.0); Mean Platelet Volume 8.8; Monocytes # (A) 0.6 k/uL (0-1.0); Monocytes % (A) 4 %; Neutrophils # (A) 13.8 k/uL (1.3-7.7); Neutrophils % (A) 93 %; Platelet Count 140 k/uL (150-450); RBC 4.54 m/uL (4.30-5.90); RDW 12.1 % (11.5-15.5); WBC 14.8 k/uL (3.8-10.6)
[2021-03-20] MEDS ORDERED: KETAMINE 10 MG/ML 20 ML VIAL IV ONE (08:06)
--- NOTE | 2021-03-20 08:11 | XR ---
EXAMINATION TYPE: XR ribs RT w pa chest xray DATE OF EXAM: 03/20/2021 COMPARISON: NONE HISTORY: Pain after fall TECHNIQUE: 7 views chest and ribs FINDINGS: There are acute rib fractures of the right posterolateral seventh, eighth and ninth ribs with an asso ciated large right pneumothorax. Findings communicated to the ordering clinician at 8:07 AM on 021 via telephone by the dictating physician. Right hemithorax subcutaneous emphysema is noted. The left lung is grossly clear. Cardiac silhouette is not enlarged but is slightly shifted to the left and question of tension pneumo thorax is raised. IMPRESSION: Multiple right rib fractures with large right pneumothorax. Question tension pneumothorax given sligh t shift of the cardiomediastinal silhouette.
[2021-03-20] MEDS ORDERED: LIDOCAINE 1%-EPI 1:100,000 20 ML VIAL SQ STA (08:20)
[2021-03-20] MEDS ORDERED: NALOXONE 0.4 MG/ML 1 ML VIAL IV PRN (08:43)
[2021-03-20] MEDS ORDERED: KETOROLAC 15 MG/ML 1 ML VIAL IVP PRN (08:43)
[2021-03-20] MEDS ORDERED: MORPHINE SULFATE 4 MG/ML SYRINGE IV PRN (08:43)
[2021-03-20] MEDS ORDERED: ONDANSETRON 4 MG/2 ML VIAL IVP PRN (08:43)
[2021-03-20] MEDS ORDERED: SODIUM CHLORIDE 0.9% 500 ML 500 ML IV STA (08:48)
--- NOTE | 2021-03-20 09:07 | XR ---
EXAMINATION TYPE: XR chest 1V portable DATE OF EXAM: 03/20/2021 COMPARISON: earlier same date HISTORY: chest tube placement TECHNIQUE: Single frontal view of the chest is obtained. FINDINGS: Interval placement of right chest tube. Right pneumothorax has been decompressed with excellent reexp ansion of the right lung. Left lung remains clear. Multiple right rib fractures are redemonstrated. Right hemithorax subcutaneous emphysema is redemonstrated. Cardiomediastinal silhouette is unremarkable. IMPRESSION: Interval placement of right chest tube with resultant reexpansion of the right lung.
[2021-03-20] MEDS: SODIUM CHLORIDE 0.9% 1,000 ML IV SCH ×2 (09:21→20:44)
[2021-03-20] MEDS ORDERED: THIAMINE 100 MG/ML 2 ML VIAL IM STA (10:47)
[2021-03-20] MEDS ORDERED: Acetaminophen-Codeine 300-30mg TAB PO PRN (10:47)
[2021-03-20] MEDS ORDERED: LORazepam 2 MG/ML INJ IV PRN ×3 (10:47)
--- NOTE | 2021-03-20 11:25 | P.GSHP ---
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 Patient presents to emergency room with complaints of right-sided rib pain and chest pain that started 2 days ago. He had a slip and fall getting off of his boat and landing on the boat deck 2 mornings ago. He takes Tylenol #3 at home with no improvement in his pain. He does admit to some shortness of breath. Patient de nies any hitting his head or any loss of consciousness. He denies any abdominal pain. He had chest x-ray completed showing multiple right rib fractures with large right pneumothorax. He had chest tube placed in the ER. Repeat chest x- ray shows interval placement of right chest tube with a resultant reexpansion of the right lung. Patient does report improvement of his shortness of breath. Patient denies any fever, chills or sweats. Denies any nausea or vomiting. Afebrile. Blood pressure has been elevated. He is on 2 L satting at 98% Patient has been admitted to the trauma service. PAST MEDICAL HISTORY: See list. PAST SURGICAL HISTORY: See list. MEDICATIONS: See list. ALLERGIES: See list. SOCIAL HISTORY: No illicit drug use. REVIEW OF SYSTEMS: CONSTITUTIONAL: Denies fever or chills. HEENT: Denies blurred vision, vision changes, or eye pain. Denies hemoptysis CARDIOVASCULAR: Denies chest pain or pressure. RESPIRATORY: No shortness of breath. GASTROINTESTINAL: Denies any nausea vomiting or bowel movement changes HEMATOLOGIC: Denies bleeding disorders. GENITOURINARY: Denies any blood in urine or increased urinary frequency. SKIN: Denies pruitis. Denies rash. PHYSICAL EXAM: VITAL SIGNS: Reviewed GENERAL: Well-developed in no acute distress. HEENT: No sclera icterus. Extraocular movements grossly intact. Moist buccal mucosa. Head is atraumatic, normocephalic. No nasal drainage. ABDOMEN: Soft. Nondistended. Nontender NEUROLOGIC: Alert and oriented. Cranial nerves II through XII grossly intact. LABORATORY DATA: WBC 14.8 hemoglobin 16.8 platelets 140 sodium 121 potassium 5.4 BUN 8 creatinine 0.49 magnesium 2.2 total bilirubin 1.6 ALT 53 AST 59 alk phos 132 troponin negative covid Not detected IMAGING: chest x-ray completed showing multiple right rib fractures with large right pneumothorax. Repeat chest x-ray shows interval placement of right chest tube with a resultant reexpansion of the right lung. ASSESSMENT: 1. Status post trip and fall 2. Multiple right rib fractures with large right pneumothorax secondary to trip and fall. Patient has right posterior lateral seventh, eighth and ninth ribs fractured 3. Daily alcohol use 4. Hyponatremia 5. Hyperkalemia 6. Leukocytosis PLAN: -Continue pain medication as needed -Continue incentive spirometer -Consult placed for anesthesia service for pain management -Consult placed for pulmonary service regarding patient's right-sided rib fractures and pneumothorax -Consult medical service for medical management -Continue IV fluids -Start patient on regular diet with 1500ml per day fluid restrictions due to the hyponatremia -Held off on restarting patient's lisinopril due to the hyperkalemia. We will await further recommendations per medicine service -Resume patient's home medication -Repeat BMP to follow-up on sodium and potassium levels. Medical service to manage hyponatremia and hyperkalemia -Place patient on the CIWA protocol for daily alcohol use -GI prophylaxis Protonix and DVT prophylaxis subcu heparin Physician Welfare Administrator note has been reviewed by physician. Signing provider agrees with the documented findings, assessment, and plan of care. 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 CARDIOMYOPATHY. VARICOSE VEINS. CHRONIC BACK PAIN, DIFFICULTY WALKING DISTANCE OR SITTING, DRY MOUTH. History of Any Multi-Drug Resistant Organisms: None Reported Past Surgical History: Back Surgery, Heart Catheterization Additional Past Surgical History / Comment(s): COLONOSCOPY. PAIN CLINIC PROC'S, BACK SURGERY AT [facility] IN [place]. Removed all teeth 2020 Past Anesthesia/Blood Transfusion Reactions: Previous Problems w/ Anesthesia Additional Past Anesthesia/Blood Transfusion Reaction / Comment(s): WITH 2 PAIN PROC WAS AWAKE, PROCEDURE VERY PAINFUL Past Psychological History: No Psychological Hx Reported Smoking Status: Current every day smoker Past Alcohol Use History: Abuse, Daily, Heavy Additional Past Alcohol Use History / Comment(s): SMOKES 3-4 CIGS PER DAY, SMOKING SINCE AGE 14. DRINKS 2-3 BEERS DAILY. Past Drug Use History: Marijuana Additional Drug Use History / Comment(s): CURRENT MARIJUANA USE , drinks 3 to 4 beers a day - Past Family History Father Family Medical History: No Reported History Mother Family Medical History: No Reported History Medications and Allergies Home Medications Medication Instructions Recorded Confirmed Type Metoprolol Tartrate [Lopressor] 12.5 mg PO BID 01/29/14 03/20/21 History lisinopriL [Zestril] 20 mg PO HS 01/29/14 03/20/21 History Gabapentin [Neurontin] 600 mg PO TID 02/18/20 03/20/21 History Acetaminophen-Codeine 300-30mg 1 tab PO Q8H PRN 30 Days #90 tablet 01/11/21 03/20/21 Rx [Tylenol w/codeine #3] Allergies Allergy/AdvReac Type Severity Reaction Status Date / Time No Known Allergies Allergy Verified 03/20/21 09:01 Surgical - Exam Vital Signs Temp Pulse Resp BP Pulse Ox 98.2 F 115 H 16 165/103 88 L 03/20/21 06:26 03/20/21 06:26 03/20/21 06:26 03/20/21 06:26 03/20/21 06:26 Results - Labs 03/20/21 07:15 03/20/21 07:15 Abnormal Lab Results - Last 24 Hours (Table) 03/20/21 03/20/21 Range/Units 07:15 07:15 WBC 14.8 H (3.8-10.6) k/uL MCV 101.3 H (80.0-100.0) fL MCH 36.9 H (25.0-35.0) pg Plt Count 140 L (150-450) k/uL Neutrophils # 13.8 H (1.3-7.7) k/uL Lymphocytes # 0.2 L (1.0-4.8) k/uL Sodium 121 L (137-145) mmol/L Potassium 5.4 H (3.5-5.1) mmol/L Chloride 88 L (98-107) mmol/L BUN 8 L (9-20) mg/dL Creatinine 0.49 L (0.66-1.25) mg/dL Glucose 102 H (74-99) mg/dL Total Bilirubin 1.6 H (0.2-1.3) mg/dL ALT 53 H (4-49) U/L Alkaline Phosphatase 132 H (38-126) U/L Diabetes panel 03/20/21 Range/Units 07:15 Sodium 121 L (137-145) mmol/L Potassium 5.4 H (3.5-5.1) mmol/L Chloride 88 L (98-107) mmol/L Carbon Dioxide 25 (22-30) mmol/L BUN 8 L (9-20) mg/dL Creatinine 0.49 L (0.66-1.25) mg/dL Glucose 102 H (74-99) mg/dL Calcium 9.4 (8.4-10.2) mg/dL AST 59 (17-59) U/L ALT 53 H (4-49) U/L Alkaline Phosphatase 132 H (38-126) U/L Total Protein 7.0 (6.3-8.2) g/dL Albumin 4.3 (3.5-5.0) g/dL Calcium panel 03/20/21 Range/Units 07:15 Calcium 9.4 (8.4-10.2) mg/dL Albumin 4.3 (3.5-5.0) g/dL Pituitary panel 03/20/21 Range/Units 07:15 Sodium 121 L (137-145) mmol/L Potassium 5.4 H (3.5-5.1) mmol/L Chloride 88 L (98-107) mmol/L Carbon Dioxide 25 (22-30) mmol/L BUN 8 L (9-20) mg/dL Creatinine 0.49 L (0.66-1.25) mg/dL Glucose 102 H (74-99) mg/dL Calcium 9.4 (8.4-10.2) mg/dL Adrenal panel 03/20/21 Range/Units 07:15 Sodium 121 L (137-145) mmol/L Potassium 5.4 H (3.5-5.1) mmol/L Chloride 88 L (98-107) mmol/L Carbon Dioxide 25 (22-30) mmol/L BUN 8 L (9-20) mg/dL Creatinine 0.49 L (0.66-1.25) mg/dL Glucose 102 H (74-99) mg/dL Calcium 9.4 (8.4-10.2) mg/dL Total Bilirubin 1.6 H (0.2-1.3) mg/dL AST 59 (17-59) U/L ALT 53 H (4-49) U/L Alkaline Phosphatase 132 H (38-126) U/L Total Protein 7.0 (6.3-8.2) g/dL Albumin 4.3 (3.5-5.0) g/dL
--- NOTE | 2021-03-20 13:00 | P.GSCN ---
History of Present Illness Consult date: 03/20/21 Reason for Consult: Traumatic right sided pneumothorax Requesting physician: Tam Larose History of present illness: This is a 65-year-old gentleman who does not follow on an outpatient basis with a primary care physician regularly. He denies any previous medical history except current chronic tobacco dependence, daily EtOH use, daily marijuana use, and recent fall history although review of his chart indicates he has a previous medical history of epiglottis cancer status post radiation in 2019, cardiomyopathy, varicose veins, chronic back pain for which he is seen at a pain clinic and has had back surgery in [place], as well as removal of all teeth this year. He presented to [facility] emergency room with complaints of right-sided chest pain unrelieved with his home Tylenol 3s. Apparently he fell a couple of days ago and has been experiencing right-sided chest pain ever since. Associated symptoms include difficulty of breathing, and difficulty taking a deep breath due to pain. Chest x-ray completed in the emergency room demonstrated multiple right-sided rib fractures with large right-sided pneumothorax, possible tension pneumothorax. Right-sided thoravent was placed by the emergency room physicians with reexpansion of the right lung. The patient was admitted for continued evaluation, and pain control with consultation placed to pulmonology who subsequently consulted cardiothoracic services for pneumothorax management. Review of Systems Review of systems was completed and was negative except as noted - Cardiovascular Reports as per HPI, Reports chest pain - Respiratory Respiratory Comment(s): Difficulty taking a deep breath due to pain Reports as per HPI Past Medical History Past Medical History: Cancer, Heart Failure, Hypertension Additional Past Medical History / Comment(s): CANCER EPIGLOTTIS-02/25/19-tx with radiation (finished 04/2019). CARDIOMYOPATHY. VARICOSE VEINS. CHRONIC BACK PAIN, DIFFICULTY WALKING DISTANCE OR SITTING, DRY MOUTH. History of Any Multi-Drug Resistant Organisms: None Reported Past Surgical History: Back Surgery, Heart Catheterization Additional Past Surgical History / Comment(s): COLONOSCOPY. PAIN CLINIC PROC'S, BACK SURGERY AT [facility] IN [place]. Removed all teeth 2020 Past Anesthesia/Blood Transfusion Reactions: Previous Problems w/ Anesthesia Additional Past Anesthesia/Blood Transfusion Reaction / Comm: WITH 2 PAIN PROC WAS AWAKE, PROCEDURE VERY PAINFUL Past Psychological History: No Psychological Hx Reported Smoking Status: Current every day smoker Past Alcohol Use History: Abuse, Daily, Heavy Additional Past Alcohol Use History / Comment(s): Admits to smoking 1 pack per day since he was 14; admits to 3-4 beers daily Past Drug Use History: Marijuana Additional Drug Use History / Comment(s): Admits to daily marijuana use - Past Family History Father Family Medical History: Cancer Additional Family Medical History / Comment(s): Father from colon cancer Mother History Unknown: Yes Additional Family Medical History / Comment(s): Mother , not sure of cause Medications and Allergies Home Medications Medication Instructions Recorded Confirmed Type Metoprolol Tartrate [Lopressor] 12.5 mg PO BID 01/29/14 03/20/21 History lisinopriL [Zestril] 20 mg PO HS 01/29/14 03/20/21 History Gabapentin [Neurontin] 600 mg PO TID 02/18/20 03/20/21 History Acetaminophen-Codeine 300-30mg 1 tab PO Q8H PRN 30 Days #90 tablet 01/11/21 03/20/21 Rx [Tylenol w/codeine #3] Allergies Allergy/AdvReac Type Severity Reaction Status Date / Time No Known Allergies Allergy Verified 03/20/21 09:01 Surgical - Exam Vital Signs Temp Pulse Resp BP Pulse Ox 98.2 F 115 H 16 165/103 88 L 03/20/21 06:26 03/20/21 06:26 03/20/21 06:26 03/20/21 06:26 03/20/21 06:26 CONSTITUTIONAL: Awake and alert, appears to be in pain, cooperative, appears cachectic EYES: Pupils equal, round, reactive to light, normal ocular movement ENT: Moist mucous membranes without oral lesions present NECK: No masses, no bruits, trachea midline RESPIRATORY: Lungs sounds diminished to auscultation, right greater than left. Respirations even, nonlabored. Currently on 2 L nasal cannula with oxygen saturation 98%. Weak cough. Thoravent present to right anterior chest wall, connected to atrium, no air leak present while patient is laying down and unable to take a deep breath or cough forcefully CARDIOVASCULAR: S1, S2 present. Regular rate and rhythm, sinus rhythm on telemetry. Palpable peripheral pulses bilaterally. No edema present. No calf pain or tenderness noted. GASTROINTESTINAL: Abdomen soft, nontender, nondistended without masses or organomegaly noted. There is no rebound or guarding present. Active bowel sounds present 4 quadrants. GENITOURINARY: Deferred INTEGUMENTARY: Skin is warm and dry with evidence of good perfusion. Bruising present right chest wall NEUROLOGIC: Cranial nerves II through XII intact, normal coordination, no obvious motor or sensory deficits, speech is normal MUSKULOSKELETAL: Able to move all extremities, strength equal bilaterally, normal posture PSYCHIATRIC: Alert and oriented to person place and time, appropriate affect, intact judgment and insight Results - Labs 03/20/21 07:15 03/20/21 07:15 Abnormal Lab Results - Last 24 Hours (Table) 03/20/21 03/20/21 Range/Units 07:15 07:15 WBC 14.8 H (3.8-10.6) k/uL MCV 101.3 H (80.0-100.0) fL MCH 36.9 H (25.0-35.0) pg Plt Count 140 L (150-450) k/uL Neutrophils # 13.8 H (1.3-7.7) k/uL Lymphocytes # 0.2 L (1.0-4.8) k/uL Sodium 121 L (137-145) mmol/L Potassium 5.4 H (3.5-5.1) mmol/L Chloride 88 L (98-107) mmol/L BUN 8 L (9-20) mg/dL Creatinine 0.49 L (0.66-1.25) mg/dL Glucose 102 H (74-99) mg/dL Total Bilirubin 1.6 H (0.2-1.3) mg/dL ALT 53 H (4-49) U/L Alkaline Phosphatase 132 H (38-126) U/L Diabetes panel 03/20/21 Range/Units 07:15 Sodium 121 L (137-145) mmol/L Potassium 5.4 H (3.5-5.1) mmol/L Chloride 88 L (98-107) mmol/L Carbon Dioxide 25 (22-30) mmol/L BUN 8 L (9-20) mg/dL Creatinine 0.49 L (0.66-1.25) mg/dL Glucose 102 H (74-99) mg/dL Calcium 9.4 (8.4-10.2) mg/dL AST 59 (17-59) U/L ALT 53 H (4-49) U/L Alkaline Phosphatase 132 H (38-126) U/L Total Protein 7.0 (6.3-8.2) g/dL Albumin 4.3 (3.5-5.0) g/dL Calcium panel 03/20/21 Range/Units 07:15 Calcium 9.4 (8.4-10.2) mg/dL Albumin 4.3 (3.5-5.0) g/dL Pituitary panel 03/20/21 Range/Units 07:15 Sodium 121 L (137-145) mmol/L Potassium 5.4 H (3.5-5.1) mmol/L Chloride 88 L (98-107) mmol/L Carbon Dioxide 25 (22-30) mmol/L BUN 8 L (9-20) mg/dL Creatinine 0.49 L (0.66-1.25) mg/dL Glucose 102 H (74-99) mg/dL Calcium 9.4 (8.4-10.2) mg/dL Adrenal panel 03/20/21 Range/Units 07:15 Sodium 121 L (137-145) mmol/L Potassium 5.4 H (3.5-5.1) mmol/L Chloride 88 L (98-107) mmol/L Carbon Dioxide 25 (22-30) mmol/L BUN 8 L (9-20) mg/dL Creatinine 0.49 L (0.66-1.25) mg/dL Glucose 102 H (74-99) mg/dL Calcium 9.4 (8.4-10.2) mg/dL Total Bilirubin 1.6 H (0.2-1.3) mg/dL AST 59 (17-59) U/L ALT 53 H (4-49) U/L Alkaline Phosphatase 132 H (38-126) U/L Total Protein 7.0 (6.3-8.2) g/dL Albumin 4.3 (3.5-5.0) g/dL - Imaging Chest x-ray: report reviewed, image reviewed EKG: image reviewed Assessment and Plan Assessment: 1. Traumatic right-sided pneumothorax, right-sided rib fractures, status post fall from standing 2. Current chronic tobacco dependence 3. Daily EtOH use 4. Daily marijuana use 5. Chronic back pain, receives treatment at pain clinic 6. Hypertension 7. History of epiglottis cancer status post radiation in 2019 8. History of cardiomyopathy Plan: The patient was seen and examined on the cardiac stepdown unit. Chart/diagnostics were reviewed. Will discuss in detail with Dr. Pastor. Recommend continuing right-sided thoravent to continuous wall suction, may trial waterseal once able to determine the patient has no air leak present. Encourage coughing and deep breathing with incentive spirometry use. Pain control with current medication regimen, Toradol regimen changed to scheduled instead of when necessary. Increase activity, ambulate as tolerated, patient should be out of bed for all meals, nursing to add extension suction tubing so patient may ambulate in his room. Will monitor daily x-rays. Smoking cessation encouraged. Medical management of other comorbidities per primary care service. More recommendations to follow. Thank you Dr. Larose for this consult. We look forward to working with you the care of your patient. Time with Patient: Greater than 30
[2021-03-20 13:04] LABS: African American GFR (CKD) >90 (>60 ml/min/1.73 sqM); Alcohol <10 mg/dL; Anion Gap 5 mmol/L; Blood Urea Nitrogen 10 mg/dL (9-20); Calcium 8.6 mg/dL (8.4-10.2); Carbon Dioxide 25 mmol/L (22-30); Chloride 90 mmol/L (98-107); Glucose 82 mg/dL (74-99); Non-African American GFR(CKD) >90 (>60 ml/min/1.73 sqM); Potassium 4.5 mmol/L (3.5-5.1); Sodium 120 mmol/L (137-145)
[2021-03-20] MEDS: KETOROLAC 15 MG/ML 1 ML VIAL IVP SCH ×2 (13:31→17:11)
[2021-03-20] MEDS: GABAPENTIN 300 MG CAP PO SCH ×4 (13:33→20:44)
[2021-03-20] MEDS: MULTIVITAMINS, THERA 1 EACH TAB PO SCH (13:33)
[2021-03-20] MEDS: PANTOPRAZOLE 40 MG TABLET PO SCH (13:33)
[2021-03-20] MEDS: METOPROLOL TARTRATE 12.5 MG TAB PO SCH ×2 (13:34→20:43)
--- NOTE | 2021-03-20 14:45 | P.CNPUL ---
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 Patient started having right-sided chest pain, and he had his , take him home, he did not present to the hospital initially for evaluation. However his chest pain did not improve and continued to worsen over the past 48 hours. He had taken Tylenol without significant relief. Patient's chest discomfort was mostly in the front, with radiation to the right side. Patient's insisted he go to the hospital for evaluation, patient was found to be hypoxic with a pulse ox of 80% on room air, tachycardic with a rate of 115. Chest x-ray of the right ribs with PA and lateral chest x-ray showed mu ltiple right-sided rib fractures with large right-sided pneumothorax, with questionable tension pneumothorax given slight shift of the cardiomediastinal silhouette. Right anterior chest Thoravent was inserted by ER physician in the emergency department with subsequent reexpansion of the right lung. Follow-up chest x-ray showed interval placement of right chest tube with a resultant reexpansion of the right lung, and subcutaneous emphysema on the right side. Patient's lab work showed a white blood cell count of 14.8, hemoglobin of 16.8, sodium is 121, potassium is 5.4, chloride is 88, CO2 is 25, BUN of 8 creatinine 0.49, AST was 59, ALT is 53, alkaline phosphatase is 132, troponin is less than 0.012, alcohol level is less than 10, COVID 19 was negative. Patient was placed on supplemental oxygen currently on 2 L of oxygen with a pulse ox of 90%, hemodynamically stable, he is still having not right-sided chest discomfort, he has received some Toradol and morphine for chest discomfort, he was started on the CIWA protocol for possibility of DTs. He has received 500 mL and fluid boluses, and currently his IV fluids are infusing at a rate of 75 ML per hour. Review of Systems All systems: negative Constitutional: Denies chills, Denies fever Eyes: denies blurred vision, denies pain Ears, nose, mouth and throat: Denies headache, Denies sore throat Cardiovascular: Denies chest pain, Denies shortness of breath Respiratory: Reports dyspnea, Denies cough Gastrointestinal: Denies abdominal pain, Denies diarrhea, Denies nausea, Denies vomiting Musculoskeletal: Denies myalgias Integumentary: Denies pruritus, Denies rash Neurological: Denies numbness, Denies weakness Psychiatric: Denies anxiety, Denies depression Endocrine: Denies fatigue, Denies weight change Past Medical History Past Medical History: Cancer, Heart Failure, Hypertension Additional Past Medical History / Comment(s): CANCER EPIGLOTTIS-02/25/19-tx with radiation (finished 04/2019). CARDIOMYOPATHY. VARICOSE VEINS. CHRONIC BACK PAIN, DIFFICULTY WALKING DISTANCE OR SITTING, DRY MOUTH. History of Any Multi-Drug Resistant Organisms: None Reported Past Surgical History: Back Surgery, Heart Catheterization Additional Past Surgical History / Comment(s): COLONOSCOPY. PAIN CLINIC PROC'S, BACK SURGERY AT [facility] IN [place]. Removed all teeth 2020 Past Anesthesia/Blood Transfusion Reactions: Previous Problems w/ Anesthesia Additional Past Anesthesia/Blood Transfusion Reaction / Comment(s): WITH 2 PAIN PROC WAS AWAKE, PROCEDURE VERY PAINFUL Past Psychological History: No Psychological Hx Reported Smoking Status: Current every day smoker Past Alcohol Use History: Abuse, Daily, Heavy Additional Past Alcohol Use History / Comment(s): Admits to smoking 1 pack per day since he was 14; admits to 3-4 beers daily Past Drug Use History: Marijuana Additional Drug Use History / Comment(s): Admits to daily marijuana use - Past Family History Father Family Medical History: Cancer Additional Family Medical History / Comment(s): Father from colon cancer Mother History Unknown: Yes Family Medical History: No Reported History Additional Family Medical History / Comment(s): Mother , not sure of cause Medications and Allergies Home Medications Medication Instructions Recorded Confirmed Type Metoprolol Tartrate [Lopressor] 12.5 mg PO BID 01/29/14 03/20/21 History lisinopriL [Zestril] 20 mg PO HS 01/29/14 03/20/21 History Gabapentin [Neurontin] 600 mg PO TID 02/18/20 03/20/21 History Acetaminophen-Codeine 300-30mg 1 tab PO Q8H PRN 30 Days #90 tablet 01/11/21 03/20/21 Rx [Tylenol w/codeine #3] Allergies Allergy/AdvReac Type Severity Reaction Status Date / Time No Known Allergies Allergy Verified 03/20/21 09:01 Physical Exam Vitals: Vital Signs Temp Pulse Pulse Resp BP BP Pulse Ox 03/20/21 09:45 98.6 F 90 18 163/99 98 03/20/21 09:25 90 16 170/103 93 L 03/20/21 09:12 90 16 180/116 94 L 03/20/21 09:10 92 16 180/116 93 L 03/20/21 08:55 97 16 173/111 93 L 03/20/21 08:40 102 H 16 201/125 93 L 03/20/21 08:35 114 H 16 212/130 95 03/20/21 08:30 112 H 17 201/125 94 L 03/20/21 08:28 105 H 18 178/104 93 L 03/20/21 08:13 110 H 18 177/108 92 L 03/20/21 06:26 98.2 F 115 H 16 165/103 88 L Intake and Output 03/19/21 03/20/21 03/20/21 22:59 06:59 14:59 Other: Weight 48.534 kg 50.5 kg GENERAL EXAM: Drowsy but arousable, 65-year-old white male, on 2 L of oxygen a pulse ox of 98% comfortable in no apparent distress. HEAD: Normocephalic/atraumatic. EYES: Normal reaction of pupils, equal size. Conjunctiva pink, sclera white. NOSE: Clear with pink turbinates. THROAT: No erythema or exudates. NECK: No masses, no JVD, no thyroid enlargement, no adenopathy. CHEST: No chest wall deformity. Symmetrical expansion. Right anterior chest Thoravent in place connected to Pleur-evac suction, with small air leak present. There is chest discomfort involving the right side of the chest with deep inspiration or deep breathing and coughing related to multiple rib fractures on the right side LUNGS: Equal air entry with no crackles, wheeze, rhonchi or dullness. CVS: Regular rate and rhythm, normal S1 and S2, no gallops, no murmurs, no rubs ABDOMEN: Soft, nontender. No hepatosplenomegaly, normal bowel sounds, no guarding or rigidity. EXTREMITIES: No clubbing, no edema, no cyanosis, 2+ pulses and upper and lower extremities. MUSCULOSKELETAL: Muscle strength and tone normal. SPINE: No scoliosis or deformity SKIN: No rashes CENTRAL NERVOUS SYSTEM: Alert and oriented -3. No focal deficits, tone is normal in all 4 extremities. PSYCHIATRIC: Alert and oriented -3. Appropriate affect. Intact judgment and insight. Results - Laboratory Findings CBC and BMP: 03/20/21 07:15 03/20/21 12:03 Abnormal lab findings: Abnormal Labs 03/20/21 03/20/21 03/20/21 07:15 07:15 12:03 WBC 14.8 H MCV 101.3 H MCH 36.9 H Plt Count 140 L Neutrophils # 13.8 H Lymphocytes # 0.2 L Sodium 121 L 120 L Potassium 5.4 H Chloride 88 L 90 L BUN 8 L Creatinine 0.49 L 0.44 L Glucose 102 H Total Bilirubin 1.6 H ALT 53 H Alkaline Phosphatase 132 H - Diagnostic Findings Chest x-ray: report reviewed, image reviewed Additional studies: Results of the chest x-ray of the ribs and EKG reviewed Assessment and Plan Plan: Assessment: #1. Acute hypoxic respiratory failure related to trauma, fall, multiple right-sided rib fractures and large right-sided pneumothorax, status post right Thoravent placement #2. Chest pain related to acute rib fractures of the right posterior lateral seventh, eighth and ninth ribs #3. Hyponatremia, likely related to hypovolemia, and chronic alcoholism #4. Chronic alcoholism, patient is currently on CIWA protocol #5. Chronic smoker #6. Daily marijuana use #7. Chronic pain syndrome, related to lumbar spondylosis, patient follows at the pain clinic #8. Malignant neoplasm of the epiglottis, with radiation treatments in 2019 Plan: Continue with the right-sided chest tube to continuous wall suction Follow-up chest x-ray in the morning Maintain pain control, anesthesia services have been consulted We'll consult cardiothoracic surgery for a right-sided pneumothorax and the possibility of a surgical intervention We'll continue to follow CIWA protocol I performed a history & physical examination of the patient and discussed their management with my nurse practitioner, Macrina Payne. I reviewed the nurse practitioner's note and agree with the documented findings and plan of care. Lung sounds are positive for diminished breath sounds. The findings and the impression was discussed with the patient. I attest to the documentation by the nurse practitioner. Time with Patient: Greater than 30
[2021-03-20] MEDS ORDERED: MELATONIN 3 MG TABLET PO PRN (15:03)
[2021-03-20] MEDS: THIAMINE 100 MG TAB PO SCH (17:11)
[2021-03-20 18:29] LABS: Appearance,Urine Clear (Clear); Bilirubin,Urine Negative (Negative); Blood,Urine Small (Negative); Color,Urine Yellow; Glucose,Urine (UA) Negative (Negative); Hyaline Casts,Urine 1 /lpf (0-2); Ketones,Urine 2+ (Negative); Leukocyte Esterase,Urine Negative (Negative); Mucus,Urine Few /hpf; Nitrite,Urine Negative (Negative); Protein,Urine Trace (Negative); RBC,Urine 3 /hpf (0-5); Squamous Epithelial Cell,Urine <1 /hpf (0-4); WBC,Urine 2 /hpf (0-5)
[2021-03-20 18:40] LABS: Amphetamine Screen,Urine Not Detected (NotDetected); Barbiturate Screen,Urine Not Detected (NotDetected); Benzodiazepines Screen,Urine Not Detected (NotDetected); Cocaine Screen,Urine Not Detected (NotDetected); Methadone Screen, Urine Not Detected (NotDetected); Opiate Screen,Urine Detected (NotDetected); Oxycodone Screen, Urine Not Detected (NotDetected); Phencyclidine Screen,Urine Not Detected (NotDetected); Tricyclic Antidepressant,Urine Not Detected (NotDetected); Urn Cannabinoid Scrn Detected (NotDetected)
[2021-03-20] MEDS ORDERED: IPRATROPIUM-ALBUTEROL 3 ML NEB INHALATION PRN (19:34)
[2021-03-20] MEDS: IPRATROPIUM-ALBUTEROL 3 ML NEB INHALATION SCH (20:16)
[2021-03-20] MEDS: TEMAZEPAM 15 MG CAP PO PRN (20:43)
[2021-03-20] MEDS: HEPARIN SODIUM,PORCINE/PF 5,000 UNIT/0.5 ML SYRINGE SQ SCH (20:44)
[2021-03-20] MEDS ORDERED: lisinopriL 20 MG TAB PO SCH (21:00)
--- NOTE | 2021-03-20 22:48 | CONS ---
CONSULTATION DATE OF SERVICE: 03/20/2021. REASON FOR CONSULTATION: Advice regarding CHF, hypertension, multiple medical issues, requested by Dr. Burks. HISTORY OF PRESENT ILLNESS: This 65-year-old gentleman with a past history of CHF, hypertension, history of, being followed by Dr. Singh in the outpatient apparently slipped and fell off the boat onto the dock. The patient sustained multiple fractures on the right side, rib fractures, and the patient developed a large right pneumothorax. Patient had Thora-Vent and chest tube drainage at this time. The patient also had acute hypoxic respiratory failure. Currently patient is in severe pain. The patient also reports taking alcohol 3- 4 drinks a day. There is no history of fevers, rigors, headaches, loss of consciousness, seizures. PAST MEDICAL: CAD, hypertension, MEDICATIONS: Zestril. Lopressor, Neurontin, Tylenol with codeine. ALLERGIES: None. FAMILY HISTORY: History of colon cancer. SOCIAL HISTORY: History of smoking, history of THC alcohol. REVIEW OF SYSTEMS: ENT: No diminished vision. CARDIOVASCULAR: No angina or palpitations. RESPIRATORY: As mentioned earlier. GI: No nausea, vomiting, diarrhea. : No dysuria. NERVOUS SYSTEM: No numbness or weakness. ALLERGY: No asthma or hayfever. MUSCULOSKELETAL: As mentioned. HEMATOLOGY: As mentioned earlier. ENDOCRINE: No history of diabetes or hypothyroidism. CONSTITUTIONAL: As mentioned. DERMATOLOGY: Negative. PSYCHIATRY: As mentioned earlier. PHYSICAL EXAMINATION: Alert, oriented x3, pulse 80, blood pressure 140/70, respirations 18, temperature 98.4, pulse ox 97% on room air. HEENT: Conjunctivae normal. Oral mucosa moist. NECK: No jugular venous distention. No lymph node enlargement. CARDIOVASCULAR: S1 and S2 muffled. RESPIRATORY: Breath sounds diminished at the bases, especially diminished on the right side. ABDOMEN: Soft, nontender. No mass palpable. LEGS: No edema, no swelling. NERVOUS SYSTEM: As mentioned earlier. Moves all 4 limbs. LYMPHATIC: No swelling. NERVOUS SYSTEM: No focal motor or sensory deficit. LYMPHATICS: No lymph nodes skin no rash joints no active. LABS: WBC 14.8, hemoglobin 16.8, sodium 130 potassium 5.4. Alkaline phosphatase 132. Otherwise, the drug screen is positive for THC and opiates. Chest x-ray which was reviewed personally by me showed placement of the right chest tube and expansion of the right lung, bilateral patchy areas on the right side present. The repeat rib x-rays shows multiple right rib fractures. ASSESSMENT: 1. Fall and multiple right-sided rib fractures, large right pneumothorax, status post history of drainage with acute hypoxic respiratory failure. 2. Severe pain. 3. Increased WBC. 4. Increased MCV. 5. Thrombocytopenia. 6. Hyponatremia. 7. Hyperkalemia. 8. Hypochloremia. 9. Elevated bilirubin. 10.Elevated AST, elevated ALT and alkaline phosphatase. 11.History of ETOH. 12.History of CHF hypertension next history of CAD notices status post radiation, history of cardiomyopathy. 13.History of back surgery. 14.History of nicotine dependence. 15.History of THC. 16.FULL CODE. 17.Severe protein calorie malnutrition with body mass index of 16.4. RECOMMENDATIONS: This 65-year-old gentleman who presented with multiple complex medical issues, at this time I recommend to continue the current management and symptomatic treatment. Otherwise bronchodilators, incentive spirometry, DVT prophylaxis and closely follow with Cardiology and with Surgery. Proton pump inhibitors. Resume the home medications. We will follow the patient closely with you. Monitor fluid and electrolyte balance closely. We will also check for any evidence of infection as white count is elevated. Check a serum procalcitonin level and continue to monitor. Prognosis guarded. Further recommendations to follow. Thank you, Dr. Burks, for letting us participate in this patient's care. MMMARISL / YAMILETN: [id number] / MTDGulshan
[2021-03-21] MEDS: KETOROLAC 15 MG/ML 1 ML VIAL IVP SCH ×4 (00:02→17:44)
[2021-03-21] MEDS: THIAMINE 100 MG TAB PO SCH ×2 (06:16→17:44)
[2021-03-21] MEDS: PANTOPRAZOLE 40 MG TABLET PO SCH (06:16)
[2021-03-21 07:17] LABS: Basophils % (A) 0 %; Eosinophils # (A) 0.2 k/uL (0-0.7); Eosinophils % (A) 2 %; HCT 39.3 % (39.0-53.0); Lymphocytes # (A) 0.3 k/uL (1.0-4.8); Lymphocytes % (A) 3 %; MCH 36.6 pg (25.0-35.0); MCHC 35.6 g/dL (31.0-37.0); MCV 102.7 fL (80.0-100.0); Mean Platelet Volume 8.5; Monocytes # (A) 0.3 k/uL (0-1.0); Monocytes % (A) 3 %; Neutrophils % (A) 91 %; Platelet Count 127 k/uL (150-450); RBC 3.83 m/uL (4.30-5.90); RDW 12.1 % (11.5-15.5); WBC 9.9 k/uL (3.8-10.6)
[2021-03-21 07:36] LABS: ALT 37 U/L (4-49); AST 46 U/L (17-59); African American GFR (CKD) >90 (>60 ml/min/1.73 sqM); Albumin 3.3 g/dL (3.5-5.0); Alkaline Phosphatase 98 U/L (38-126); Anion Gap 5 mmol/L; Blood Urea Nitrogen 11 mg/dL (9-20); Calcium 8.4 mg/dL (8.4-10.2); Carbon Dioxide 28 mmol/L (22-30); Chloride 89 mmol/L (98-107); Glucose 82 mg/dL (74-99); Non-African American GFR(CKD) >90 (>60 ml/min/1.73 sqM); Potassium 4.3 mmol/L (3.5-5.1); Sodium 122 mmol/L (137-145); Total Bilirubin 1.2 mg/dL (0.2-1.3); Total Protein 5.8 g/dL (6.3-8.2)
--- NOTE | 2021-03-21 08:11 | P.PN ---
Subjective Progress Note Date: 03/21/21 Principal diagnosis: Traumatic right-sided pneumothorax, right-sided rib fractures, status post fall from standing, leukocytosis/hyponatremia POA, acute hypoxic respiratory failure POA. Previous medical history of current chronic tobacco dependence, daily EtOH use, daily marijuana use, chronic back pain, hypertension, epiglottis cancer status post radiation in 2019, cardiomyopathy The patient is currently laying in bed on the cardiac stepdown unit in no acute distress. States pain and shortness of breath are better controlled. Currently on room air with oxygen saturation in the mid 90s. Able to achieve 1250 mL on incentive spirometry. No current evidence of DTs. Right thoravent in place to wall suction without evidence of air leak. CXR reviewed. No other new concerns Objective - Vital Signs Vital signs: Vital Signs Temp 98.3 F 03/20/21 20:00 Pulse 79 03/21/21 04:00 Resp 18 03/21/21 04:00 BP 129/76 03/21/21 04:00 Pulse Ox 96 03/21/21 04:00 Intake & Output 03/20/21 03/21/21 03/21/21 18:59 06:59 18:59 Intake Total 360 480 Output Total 300 382 Balance 60 480 -382 Weight 50.5 kg 49.26 kg Intake: Oral 360 480 Output: Chest Tube Drainage 32 Chest Tube 32 Urine 300 350 Other: Voiding Method Urinal - Exam CONSTITUTIONAL: Appears comfortable, cooperative, no acute distress RESPIRATORY: Lungs sounds diminished bilaterally. Respirations even, nonlabored. Currently on room air with oxygen saturation 96%. Able to achieve 1250 mL on incentive spirometry. Strong cough. CARDIOVASCULAR: S1, S2 present. Regular rate and rhythm, sinus rhythm on telemetry. Palpable peripheral pulses bilaterally. No edema present. No calf pain or tenderness noted. SCDs present. GASTROINTESTINAL: Abdomen soft, nontender, nondistended. Active bowel sounds present 4 quadrants. Tolerating diet. GENITOURINARY: Continues to void clear, yellow urine INTEGUMENTARY: Skin is warm and dry with evidence of good perfusion. NEUROLOGIC: Cranial nerves II through XII intact MUSKULOSKELETAL: Able to move all extremities, strength equal bilaterally, gait normal PSYCHIATRIC: Alert and oriented to person place and time, appropriate affect, intact judgment and insight INVASIVE LINES AND TUBES: Right-sided thoravent present, connected to wall suction, no air leak present - Allied health notes Allied health notes reviewed: nursing - Labs CBC & Chem 7: 03/21/21 06:25 03/21/21 06:25 Labs: Abnormal Lab Results - Last 24 Hours (Table) 03/20/21 03/20/21 03/20/21 Range/Units 07:15 12:03 17:45 WBC 14.8 H (3.8-10.6) k/uL RBC (4.30-5.90) m/uL MCV 101.3 H (80.0-100.0) fL MCH 36.9 H (25.0-35.0) pg Plt Count 140 L (150-450) k/uL Neutrophils # 13.8 H (1.3-7.7) k/uL Lymphocytes # 0.2 L (1.0-4.8) k/uL Sodium 120 L (137-145) mmol/L Chloride 90 L (98-107) mmol/L Creatinine 0.44 L (0.66-1.25) mg/dL Total Protein (6.3-8.2) g/dL Albumin (3.5-5.0) g/dL Urine Protein Trace H (Negative) Urine Ketones 2+ H (Negative) Urine Blood Small H (Negative) Urine Mucus Few H (None) /hpf Urine Opiates Screen Detected H (NotDetected) U Marijuana (THC) Screen Detected H (NotDetected) 03/21/21 03/21/21 Range/Units 06:25 06:25 WBC (3.8-10.6) k/uL RBC 3.83 L (4.30-5.90) m/uL MCV 102.7 H (80.0-100.0) fL MCH 36.6 H (25.0-35.0) pg Plt Count 127 L (150-450) k/uL Neutrophils # 9.0 H (1.3-7.7) k/uL Lymphocytes # 0.3 L (1.0-4.8) k/uL Sodium 122 L (137-145) mmol/L Chloride 89 L (98-107) mmol/L Creatinine 0.46 L (0.66-1.25) mg/dL Total Protein 5.8 L (6.3-8.2) g/dL Albumin 3.3 L (3.5-5.0) g/dL Urine Protein (Negative) Urine Ketones (Negative) Urine Blood (Negative) Urine Mucus (None) /hpf Urine Opiates Screen (NotDetected) U Marijuana (THC) Screen (NotDetected) - Imaging and Cardiology Chest x-ray: image reviewed Assessment and Plan Assessment: 1. Traumatic right-sided pneumothorax, right-sided rib fractures, status post fall from standing 2. Leukocytosis, hyponatremia, POA 3. Acute hypoxic respiratory failure secondary to above 4. Current chronic tobacco dependence 5. Daily EtOH use 6. Daily marijuana use 7. Chronic back pain, receives treatment at pain clinic 8. Hypertension 9. History of epiglottis cancer status post radiation in 2019 10. History of cardiomyopathy Plan: 1. Right-sided thoravent placed to waterseal, Atrium removed and non-occlusive cap placed 2. Will monitor for any sign of air leak by viewing the red diaphragm for fluctuation. If patient remains without air leak all day will place occlusive cap tonight, if lung remains expanded will discontinue thoravent tomorrow 3. Continue to encourage coughing and deep breathing with incentive spirometry use 4. Pain control with current medication regimen 5. Increase activity, ambulate as tolerated. Patient should be out of bed for all meals 6. Repeat x-ray tomorrow morning 7. Smoking cessation encouraged. Continue CIWA protocol 8. Management of other comorbidities per primary care service 9. More recommendations to follow Time with Patient: Greater than 30
[2021-03-21] MEDS: METOPROLOL TARTRATE 12.5 MG TAB PO SCH ×2 (08:15→20:01)
[2021-03-21] MEDS: MULTIVITAMINS, THERA 1 EACH TAB PO SCH (08:16)
[2021-03-21] MEDS: HEPARIN SODIUM,PORCINE/PF 5,000 UNIT/0.5 ML SYRINGE SQ SCH ×3 (08:16→20:01)
[2021-03-21] MEDS: GABAPENTIN 300 MG CAP PO SCH ×3 (08:18→20:02)
[2021-03-21] MEDS: IPRATROPIUM-ALBUTEROL 3 ML NEB INHALATION SCH ×3 (08:27→20:24)
--- NOTE | 2021-03-21 09:41 | XR ---
EXAMINATION TYPE: XR chest 1V portable DATE OF EXAM: 03/21/2021 COMPARISON: 03/20/2021 HISTORY: Right pneumothorax TECHNIQUE: Single frontal view of the chest is obtained. FINDINGS: Right chest tube is in place. Residual pneumothorax is not seen. Cardiac silhouette is unchanged. Extensive subcutaneous emphysema of the right hemithorax is redemonstrated. Right rib fractures are again seen. IMPRESSION: No definite residual pneumothorax of the right lung status post right chest tube placement.
--- NOTE | 2021-03-21 10:52 | P.PN ---
Subjective Progress Note Date: 03/21/21 CHIEF COMPLAINT: Trip and fall with right-sided rib pain HISTORY OF PRESENT ILLNESS: Patient is hospitalized for multiple right-sided rib fractures with large pneumothorax after a trip and fall. He has a Thoravent chest tube in place. Currently at [facility]. Followed closely by cardiothoracic surgery. Chest x-ray today shows no pneumothorax. He is on room air satting at 96%. He reports that his pain is controlled. He has been using the IV morphine and Toradol. He denies any nausea or vomiting. He denies any new pain. He is tolerating diet. Having flatus. No bowel movement. Afebrile WBC has come down from 14.8-9.9 sodium 122 potassium 4.3 alcohol level is less than 10 drug screen was positive for opiates and marijuana. No signs of withdrawal PHYSICAL EXAM: VITAL SIGNS: Reviewed. GENERAL: Well-developed in no acute distress. HEENT: No sclera icterus. Extraocular movements grossly intact. Moist buccal mucosa. Head is atraumatic, normocephalic. ABDOMEN: Soft. Nondistended. Nontender. NEUROLOGIC: Alert and oriented. Cranial nerves II through XII grossly intact. ASSESSMENT: 1. Status post trip and fall 2. Multiple right rib fractures with large right pneumothorax secondary to trip and fall. Patient has right posterior lateral seventh, eighth and ninth ribs fractured. Status post right Thoravent placement 3. Daily alcohol use 4. Hyponatremia due to hypovolemia and chronic alcoholism 5. Hyperkalemia resolved 6. Leukocytosis reactive. Now resolved 7. Acute hypoxic respiratory failure secondary to pneumothorax and rib fractures PLAN: -Pain service consult pending -encourage patient to use incentive spirometer -Encourage patient to increase activity -Pneumothorax followed by cardiothoracic team. Will await their recommendations regarding possible discharge tomorrow -Continue CIWA protocol -Continue regular diet with 1500 mL per day fluid restrictions due to patient's hyponatremia -Continue pain medication as needed -Continue GI and DVT prophylaxis. The patient has been refusing his subcu heparin Physician Physical Integration Practitioner note has been reviewed by physician. Signing provider agrees with the documented findings, assessment, and plan of care. Objective - Vital Signs Vital signs: Vital Signs Temp 98.7 F 03/21/21 08:10 Pulse 84 03/21/21 08:10 Resp 16 03/21/21 08:10 BP 119/84 03/21/21 08:10 Pulse Ox 100 03/21/21 08:10 Intake & Output 03/20/21 03/21/21 03/21/21 18:59 06:59 18:59 Intake Total 360 480 240 Output Total 300 382 Balance 60 480 -142 Weight 50.5 kg 49.26 kg Intake: Oral 360 480 240 Output: Chest Tube Drainage 32 Chest Tube 32 Urine 300 350 Other: Voiding Method Urinal Urinal - Labs CBC & Chem 7: 03/21/21 06:25 03/21/21 06:25 Labs: Abnormal Lab Results - Last 24 Hours (Table) 03/20/21 03/20/21 03/21/21 Range/Units 12:03 17:45 06:25 RBC 3.83 L (4.30-5.90) m/uL MCV 102.7 H (80.0-100.0) fL MCH 36.6 H (25.0-35.0) pg Plt Count 127 L (150-450) k/uL Neutrophils # 9.0 H (1.3-7.7) k/uL Lymphocytes # 0.3 L (1.0-4.8) k/uL Sodium 120 L (137-145) mmol/L Chloride 90 L (98-107) mmol/L Creatinine 0.44 L (0.66-1.25) mg/dL Total Protein (6.3-8.2) g/dL Albumin (3.5-5.0) g/dL Urine Protein Trace H (Negative) Urine Ketones 2+ H (Negative) Urine Blood Small H (Negative) Urine Mucus Few H (None) /hpf Urine Opiates Screen Detected H (NotDetected) U Marijuana (THC) Screen Detected H (NotDetected) 03/21/21 Range/Units 06:25 RBC (4.30-5.90) m/uL MCV (80.0-100.0) fL MCH (25.0-35.0) pg Plt Count (150-450) k/uL Neutrophils # (1.3-7.7) k/uL Lymphocytes # (1.0-4.8) k/uL Sodium 122 L (137-145) mmol/L Chloride 89 L (98-107) mmol/L Creatinine 0.46 L (0.66-1.25) mg/dL Total Protein 5.8 L (6.3-8.2) g/dL Albumin 3.3 L (3.5-5.0) g/dL Urine Protein (Negative) Urine Ketones (Negative) Urine Blood (Negative) Urine Mucus (None) /hpf Urine Opiates Screen (NotDetected) U Marijuana (THC) Screen (NotDetected)
[2021-03-21] MEDS: FOLIC ACID 1 MG TAB PO SCH (11:46)
[2021-03-21] MEDS: SODIUM CHLORIDE 0.9% 1,000 ML IV SCH (11:51)
--- NOTE | 2021-03-21 13:18 | P.PN ---
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 Patient started having right-sided chest pain, and he had his , take him home, he did not present to the hospital initially for evaluat ion. However his chest pain did not improve and continued to worsen over the past 48 hours. He had taken Tylenol without significant relief. Patient's chest discomfort was mostly in the front, with radiation to the right side. Patient's insisted he go to the hospital for evaluation, patient was found to be hypoxic with a pulse ox of 80% on room air, tachycardic with a rate of 115. Chest x-ray of the right ribs with PA and lateral chest x-ray showed multiple right-sided rib fractures with large right-sided pneumothorax, with questionable tension pneumothorax given slight shift of the cardiomediastinal silhouette. Right anterior chest Thoravent was inserted by ER physician in the emergency department with subsequent reexpansion of the right lung. Follow-up chest x-ray showed interval placement of right chest tube with a resultant reexpansion of the right lung, and subcutaneous emphysema on the right side. Patient's lab work showed a white blood cell count of 14.8, hemoglobin of 16.8, sodium is 121, potassium is 5.4, chloride is 88, CO2 is 25, BUN of 8 creatinine 0.49, AST was 59, ALT is 53, alkaline phosphatase is 132, troponin is less than 0.012, alcohol level is less than 10, COVID 19 was negative. Patient was placed on supplemental oxygen currently on 2 L of oxygen with a pulse ox of 90%, hemodynamically stable, he is still having not right-sided chest discomfort, he has received some Toradol and morphine for chest discomfort, he was started on the CIWA protocol for possibility of DTs. He has received 500 mL and fluid boluses, and currently his IV fluids are infusing at a rate of 75 ML per hour. On 03/21/2021 patient seen in follow-up on selective care unit, he is awake and alert, appears to be in no acute distress. Room air pulse ox 99%, he is afebril e, vital signs have been stable, breathing seems to be nonlabored, his pain is fairly well controlled with combination of IV Toradol, and IV morphine, today's chest x-ray shows no definite residual pneumothorax of the right lung. CT surgery is following, andRight thoravent was disconnected from wall suction, nonocclusive plug was put in place. There is fluctuation of the diaphragm on the Thoravent, equal breath sounds bilaterally, patient is working and sent spirometer, he is achieving 1750 on it today, lung sounds are clear, no rhonchi or wheezing, today's labs have been reviewed, his sodium is slowly improving and is up to 122, he remains on 0.9 normal saline at a rate of 75 ML per hour, he is tolerating oral intake, his white count is 9.9, hemoglobin is 14. He remains on CIWA protocol, there is no confusion, patient is answering questions appropriately, no agitation, no diaphoresis, no complaints of headaches no tremors. Objective - Vital Signs Vital signs: Vital Signs Temp 98.6 F 03/21/21 12:00 Pulse 88 03/21/21 12:00 Resp 18 03/21/21 12:45 BP 155/87 03/21/21 12:00 Pulse Ox 99 03/21/21 12:00 Intake & Output 03/20/21 03/21/21 03/21/21 18:59 06:59 18:59 Intake Total 360 480 240 Output Total 300 382 Balance 60 480 -142 Weight 50.5 kg 49.26 kg Intake: Oral 360 480 240 Output: Chest Tube Drainage 32 Chest Tube 32 Urine 300 350 Other: Voiding Method Urinal Urinal - Exam GENERAL EXAM: Drowsy but arousable, 65-year-old white male, on 2 L of oxygen a pulse ox of 98% comfortable in no apparent distress. HEAD: Normocephalic/atraumatic. EYES: Normal reaction of pupils, equal size. Conjunctiva pink, sclera white. NOSE: Clear with pink turbinates. THROAT: No erythema or exudates. NECK: No masses, no JVD, no thyroid enlargement, no adenopathy. CHEST: No chest wall deformity. Symmetrical expansion. Right anterior chest Thoravent in place disconnected from the pleural VAC, there is a nonocclusive plug in place, and there is mild fluctuation of the diaphragm. There is chest discomfort involving the right side of the chest with deep inspiration or deep breathing and coughing related to multiple rib fractures on the right side LUNGS: Equal air entry with no crackles, wheeze, rhonchi or dullness. CVS: Regular rate and rhythm, normal S1 and S2, no gallops, no murmurs, no rubs ABDOMEN: Soft, nontender. No hepatosplenomegaly, normal bowel sounds, no guarding or rigidity. EXTREMITIES: No clubbing, no edema, no cyanosis, 2+ pulses and upper and lower extremities. MUSCULOSKELETAL: Muscle strength and tone normal. SPINE: No scoliosis or deformity SKIN: No rashes CENTRAL NERVOUS SYSTEM: Alert and oriented -3. No focal deficits, tone is normal in all 4 extremities. PSYCHIATRIC: Alert and oriented -3. Appropriate affect. Intact judgment and insight. - Labs CBC & Chem 7: 03/21/21 06:25 03/21/21 06:25 Labs: Abnormal Lab Results - Last 24 Hours (Table) 03/20/21 03/21/21 03/21/21 Range/Units 17:45 06:25 06:25 RBC 3.83 L (4.30-5.90) m/uL MCV 102.7 H (80.0-100.0) fL MCH 36.6 H (25.0-35.0) pg Plt Count 127 L (150-450) k/uL Neutrophils # 9.0 H (1.3-7.7) k/uL Lymphocytes # 0.3 L (1.0-4.8) k/uL Sodium 122 L (137-145) mmol/L Chloride 89 L (98-107) mmol/L Creatinine 0.46 L (0.66-1.25) mg/dL Total Protein 5.8 L (6.3-8.2) g/dL Albumin 3.3 L (3.5-5.0) g/dL Urine Protein Trace H (Negative) Urine Ketones 2+ H (Negative) Urine Blood Small H (Negative) Urine Mucus Few H (None) /hpf Urine Opiates Screen Detected H (NotDetected) U Marijuana (THC) Screen Detected H (NotDetected) Assessment and Plan Plan: Assessment: #1. Acute hypoxic respiratory failure related to trauma, fall, multiple right- sided rib fractures and large right-sided pneumothorax, status post right Thoravent placement #2. Chest pain related to acute rib fractures of the right posterior lateral seventh, eighth and ninth ribs #3. Hyponatremia, likely related to hypovolemia, and chronic alcoholism #4. Chronic alcoholism, patient is currently on CIWA protocol #5. Chronic smoker #6. Daily marijuana use #7. Chronic pain syndrome, related to lumbar spondylosis, patient follows at the pain clinic #8. Malignant neoplasm of the epiglottis, with radiation treatments in 2019 Plan: Today's chest x-ray has been reviewed Right lung remains reexpanded Thoravent was taken off for suction and placed to waterseal with nonocclusive plug Breathing comfortably Continue encouraging deep breathing and coughing and incentive spirometry use Continue CIWA protocol CT surgery is following and there is possibly patient may be considered for discharge home tomorrow if remains stable Patient also could be considered for discharge home with the Thoravent in place if remains stable I performed a history & physical examination of the patient and discussed their management with my nurse practitioner, Macrina Payne. I reviewed the nurse practitioner's note and agree with the documented findings and plan of care. Lung sounds are positive for diminished breath sounds. The findings and the impression was discussed with the patient. I attest to the documentation by the nurse practitioner. Time with Patient: Less than 30
--- NOTE | 2021-03-21 18:32 | PN ---
PROGRESS NOTE DATE OF SERVICE: 03/21/2021. HISTORY: This 65-year-old gentleman who was admitted after a fall and multiple right rib fractures, had a pneumothorax. The most recent chest x-ray done today was reviewed personally by me showed some subcutaneous emphysema. Cardiothoracic Surgery and Pulmonology and Trauma Surgery are following the patient closely. Right Thora-Vent with wall suction is present at this time. No chest pain. No palpitations. No fever. PHYSICAL EXAMINATION: Alert and oriented x 2. Pulse 72, blood pressure 130/70, respirations 16, temperature 98.2, pulse ox 97% on room air. HEENT: S1, S2 muffled. RESPIRATORY SYSTEM: Breath sounds diminished at the bases a few scattered rhonchi. ABDOMEN: Soft. NERVOUS SYSTEM: No focal deficits. LABS: WBC 9.9, hemoglobin 14, sodium is 120, potassium 4.3, albumin is 3.3. ASSESSMENT: 1. Fall and multiple right-sided rib fractures, large right pneumothorax, status post fall with acute hypoxic respiratory failure, present on admission. 2. Severe pain. 3. Increased WBC. 4. Increased MCV. 5. Thrombocytopenia. 6. Hyponatremia. 7. Hyperkalemia. 8. Hypochloremia. 9. Elevated bilirubin. 10.Elevated AST and ALT and alkaline phosphatase. 11.History of ETOH. 12.History of CHF. 13.History of hypertension. 14.History of coronary artery disease. 15.History of cardiomyopathy. 16.History of back surgery. 17.History of nicotine dependence. 18.History of THC. 19.Severe protein calorie malnutrition BMI of 16.4. 20.FULL CODE. RECOMMENDATIONS AND DISCUSSION: I recommend to continue current management and symptomatic treatment. Continue incentive spirometry. Continue with bronchodilators. I would also recommend monitor sodium closely. There is no evidence of any DTs at this time but I would caution to observe closely for DT precautions with CIWA protocol if necessary. Otherwise closely follow with surgery. Further recommendations to follow. MMODL / IJN: [id number] /
[2021-03-21] MEDS: TEMAZEPAM 15 MG CAP PO PRN (20:01)
[2021-03-22] MEDS: KETOROLAC 15 MG/ML 1 ML VIAL IVP SCH ×5 (00:15→23:24)
[2021-03-22] MEDS: PANTOPRAZOLE 40 MG TABLET PO SCH (06:13)
[2021-03-22] MEDS: THIAMINE 100 MG TAB PO SCH ×2 (06:13→17:50)
--- NOTE | 2021-03-22 07:13 | P.PN ---
Subjective Progress Note Date: 03/22/21 Principal diagnosis: Traumatic right-sided pneumothorax S/P placement of thoravent by the emergency room physicians, right-sided rib fractures, status post fall from standing, leuk ocytosis/hyponatremia POA, acute hypoxic respiratory failure POA. Previous medical history of current chronic tobacco dependence, daily EtOH use, daily marijuana use, chronic back pain, hypertension, epiglottis cancer status post radiation in 2019, cardiomyopathy The patient is currently sitting up in bed on the cardiac stepdown unit in no acute distress. States pain and shortness of breath are better controlled. Currently on room air with oxygen saturation in the high 90s. Able to achieve 1750 mL on incentive spirometry. No current evidence of DTs. Right thoravent in place to water seal without evidence of air leak. CXR reviewed. No other new concerns Objective - Vital Signs Vital signs: Vital Signs Temp 98.3 F 03/21/21 20:00 Pulse 72 03/22/21 04:00 Resp 18 03/22/21 04:00 BP 133/77 03/22/21 04:00 Pulse Ox 98 03/22/21 04:00 Intake & Output 03/21/21 03/22/21 03/22/21 18:59 06:59 18:59 Intake Total 1078 480 Output Total 782 250 Balance 296 230 Weight 50.8 kg Intake: Oral 1078 480 Output: Chest Tube Drainage 32 Chest Tube 32 Urine 750 250 Other: Voiding Method Urinal Urinal # Voids 1 - Exam CONSTITUTIONAL: Appears comfortable, cooperative, no acute distress RESPIRATORY: Lungs sounds diminished bilaterally. Respirations even, nonlabored. Currently on room air with oxygen saturation 98%. Able to achieve 1750 mL on incentive spirometry. Strong cough. CARDIOVASCULAR: S1, S2 present. Regular rate and rhythm, sinus rhythm on telemetry. Palpable peripheral pulses bilaterally. No edema present. No calf pain or tenderness noted. SCDs present. GASTROINTESTINAL: Abdomen soft, nontender, nondistended. Active bowel sounds present 4 quadrants. Tolerating diet. GENITOURINARY: Continues to void clear, yellow urine INTEGUMENTARY: Skin is warm and dry with evidence of good perfusion. NEUROLOGIC: Cranial nerves II through XII intact MUSKULOSKELETAL: Able to move all extremities, strength equal bilaterally PSYCHIATRIC: Alert and oriented to person place and time, appropriate affect, intact judgment and insight INVASIVE LINES AND TUBES: Right-sided thoravent present, connected to water seal, no air leak present - Allied health notes Allied health notes reviewed: nursing - Labs CBC & Chem 7: 03/21/21 06:25 03/21/21 06:25 Labs: Abnormal Lab Results - Last 24 Hours (Table) 03/21/21 03/21/21 Range/Units 06:25 06:25 RBC 3.83 L (4.30-5.90) m/uL MCV 102.7 H (80.0-100.0) fL MCH 36.6 H (25.0-35.0) pg Plt Count 127 L (150-450) k/uL Neutrophils # 9.0 H (1.3-7.7) k/uL Lymphocytes # 0.3 L (1.0-4.8) k/uL Sodium 122 L (137-145) mmol/L Chloride 89 L (98-107) mmol/L Creatinine 0.46 L (0.66-1.25) mg/dL Total Protein 5.8 L (6.3-8.2) g/dL Albumin 3.3 L (3.5-5.0) g/dL - Imaging and Cardiology Chest x-ray: image reviewed Assessment and Plan Assessment: 1. Traumatic right-sided pneumothorax, right-sided rib fractures, status post fall from standing, S/P placement of right sided thoravent by the ER physicians 2. Leukocytosis, hyponatremia, POA 3. Acute hypoxic respiratory failure secondary to above 4. Current chronic tobacco dependence 5. Daily EtOH use 6. Daily marijuana use 7. Chronic back pain, receives treatment at pain clinic 8. Hypertension 9. History of epiglottis cancer status post radiation in 2019 10. History of cardiomyopathy Plan: 1. Right-sided thoravent occlusive cap placed. Will repeat CXR in 2 hours. If stable will discontinue thoravent 2. Continue to encourage coughing and deep breathing with incentive spirometry use 3. Pain control with current medication regimen 4. Increase activity, ambulate as tolerated. Patient should be out of bed for all meals 5. Smoking cessation encouraged. Continue CIWA protocol 6. Management of other comorbidities per primary care service 7. Once thoravent is removed patient may be discharged from cardiothoracic surgery standpoint when ok with other services Time with Patient: Greater than 30
--- NOTE | 2021-03-22 07:34 | XR ---
EXAMINATION TYPE: XR chest 2V DATE OF EXAM: 03/22/2021 COMPARISON: 03/21/2021 HISTORY: Right-sided pneumothorax TECHNIQUE: Frontal and lateral views of the chest are obtained. FINDINGS: Right pleural catheter remains in place with no significant residual pneumothorax seen. There is hazy opacity of the right midlung zone. Right hemithorax subcutaneous emphysema is redemonstrated. Cardiac silhouette is unchanged. IMPRESSION: Right pleural catheter remains in place with no significant residual pneumothorax seen. There is hazy opacity of the right midlung zone.
[2021-03-22 07:41] LABS: HCT 43.3 % (39.0-53.0); HGB 14.7 gm/dL (13.0-17.5); MCH 35.4 pg (25.0-35.0); MCV 103.9 fL (80.0-100.0); Macrocytosis Slight; Mean Platelet Volume 9.3; Platelet Count 128 k/uL (150-450); RBC 4.17 m/uL (4.30-5.90); RDW 12.9 % (11.5-15.5); WBC 8.4 k/uL (3.8-10.6)
[2021-03-22 07:45] LABS: African American GFR (CKD) >90 (>60 ml/min/1.73 sqM); Anion Gap 3 mmol/L; Blood Urea Nitrogen 8 mg/dL (9-20); Calcium 8.7 mg/dL (8.4-10.2); Carbon Dioxide 28 mmol/L (22-30); Chloride 93 mmol/L (98-107); Glucose 80 mg/dL (74-99); Non-African American GFR(CKD) >90 (>60 ml/min/1.73 sqM); Potassium 4.3 mmol/L (3.5-5.1); Sodium 124 mmol/L (137-145)
[2021-03-22] MEDS: SODIUM CHLORIDE 0.9% 1,000 ML IV SCH ×5 (08:00→23:27)
[2021-03-22] MEDS: IPRATROPIUM-ALBUTEROL 3 ML NEB INHALATION SCH ×3 (08:32→19:29)
[2021-03-22] MEDS: HEPARIN SODIUM,PORCINE/PF 5,000 UNIT/0.5 ML SYRINGE SQ SCH ×3 (09:59→20:35)
[2021-03-22] MEDS: GABAPENTIN 300 MG CAP PO SCH ×3 (09:59→23:24)
[2021-03-22] MEDS: METOPROLOL TARTRATE 12.5 MG TAB PO SCH ×2 (09:59→20:34)
[2021-03-22] MEDS: MULTIVITAMINS, THERA 1 EACH TAB PO SCH (10:00)
[2021-03-22] MEDS: FOLIC ACID 1 MG TAB PO SCH (10:00)
--- NOTE | 2021-03-22 10:23 | P.PN ---
Subjective Patient is admitted for acute hypoxic respiratory failure secondary to trauma and the right-sided pneumothorax patient Lashonda doesn't have a chest tube patient has a prominent in place. Patient is ready to be discharged from surgical perspective but patient remains hyponatremic patient sodium is only 124 today patient does have history of alcoholism, does drink beer on daily basis which can cause severe hyponatremia. Patient is only getting 50 mL of normal saline which will be changed to 1 25 mL. Patient is on fluid restriction which will be continued to avoid free water intake. Patient is an not medically stable to be discharged at this time may need 1 more day of IV fluid resuscitation before he can be discharged. Extensive counseling regarding alcoholism was provided patient is on CIWA protocol but doesn't have any withdrawals at this time. Constitutional: Denied any fatigue denied any fever. Cardio vascular: denied any chest pain, palpitations Gastrointestinal denied any nausea vomiting Pulmonary: Denied any shortness of breath cough Neurologic denied any new focal deficits All inpatient medications were reviewed and appropriate changes in these medications as dictated in the interval history and assessment and plan. Objective - Vital Signs Vital signs: Vital Signs Temp 98.3 F 03/21/21 20:00 Pulse 72 03/22/21 04:00 Resp 18 03/22/21 04:00 BP 133/77 03/22/21 04:00 Pulse Ox 98 03/22/21 04:00 Intake & Output 03/21/21 03/22/21 03/22/21 18:59 06:59 18:59 Intake Total 1078 480 240 Output Total 782 250 Balance 296 230 240 Weight 50.8 kg Intake: Oral 1078 480 240 Output: Chest Tube Drainage 32 Chest Tube 32 Urine 750 250 Other: Voiding Method Urinal Urinal # Voids 1 - Exam PHYSICAL EXAMINATION: GENERAL: The patient is alert and oriented x3, not in any acute distress. Well developed, well nourished. HEENT: Pupils are round and equally reacting to light. EOMI. No scleral icterus. No conjunctival pallor. Normocephalic, atraumatic. No pharyngeal erythema. No thyromegaly. CARDIOVASCULAR: S1 and S2 present. No murmurs, rubs, or gallops. PULMONARY: Chest is clear to auscultation, no wheezing or crackles. does have Th oravent in place ABDOMEN: Soft, nontender, nondistended, normoactive bowel sounds. No palpable organomegaly. MUSCULOSKELETAL: No joint swelling or deformity. EXTREMITIES: No cyanosis, clubbing, or pedal edema. NEUROLOGICAL: Gross neurological examination did not reveal any focal deficits. SKIN: No rashes. - Labs CBC & Chem 7: 03/22/21 06:56 03/22/21 06:56 Labs: Abnormal Lab Results - Last 24 Hours (Table) 03/22/21 03/22/21 Range/Units 06:56 06:56 RBC 4.17 L (4.30-5.90) m/uL MCV 103.9 H (80.0-100.0) fL MCH 35.4 H (25.0-35.0) pg Plt Count 128 L (150-450) k/uL Sodium 124 L (137-145) mmol/L Chloride 93 L (98-107) mmol/L BUN 8 L (9-20) mg/dL Creatinine 0.39 L (0.66-1.25) mg/dL Assessment and Plan Plan: -Acute hypoxic respiratory failure secondary to right-sided pneumothorax and patient has a Thoravent in place -Chest pain secondary to rib fractures -Hypovolemic hyponatremia: Secondary to alcoholism and beer intake will also obtain a TSH level. Further workup including serum osmolality, urine osmolality and urine sodium may not give any information at this time as patient was already fluid restricted and receiving IV fluids. We'll continue with the fluid restriction at this time will increase fluids to 1 25 mL per hour -Nicotine abuse -Marijuana use -History of laryngeal cancer status post radiation therapy and is in remission at this time. -Alcohol abuse
--- NOTE | 2021-03-22 12:19 | XR ---
EXAMINATION TYPE: XR chest 2V DATE OF EXAM: 03/22/2021 COMPARISON: 03/22/2021 HISTORY: Clamping of fluoroscopy vent chest tube TECHNIQUE: Frontal and lateral views of the chest are obtained. FINDINGS: Right chest tube remains in place. No definite residual pneumothorax is seen. There is haziness of t he right midlung zone which appears similar to the prior exam. Extensive right hemithorax subcutaneous emphysema is noted. Cardiac silhouette is unchanged in size. Right rib fractures are redemonstrated. IMPRESSION: No significant change since the prior examination.
--- NOTE | 2021-03-22 12:46 | P.PN ---
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 Patient started having right-sided chest pain, and he had his , take him home, he did not present to the hospital initially for evaluation. However his chest pain did not improve and continued to worsen over the past 48 hours. He had taken Tylenol without significant relief. Patient's chest discomfort was mostly in the front, with radiation to the right side. Patient's insisted he go to the hospital for evaluation, patient was found to be hypoxic with a pulse ox of 80% on room air, tachycardic with a rate of 115. Chest x-ray of the right ribs with PA and lateral chest x-ray showed multiple right-sided rib fractures with large right-sided pneumothorax, with questionable tension pneumothorax given slight shift of the cardiomediastinal silhouette. Right anterior chest Thoravent was inserted by ER physician in the emergency department with subsequent reexpansion of the right lung. Follow-up chest x-ray showed interval placement of right chest tube with a resultant reexpansion of the right lung, and subcutaneous emphysema on the right side. Patient's lab work showed a white blood cell count of 14.8, hemoglobin of 16.8, sodium is 121, potassium is 5.4, chloride is 88, CO2 is 25, BUN of 8 creatinine 0.49, AST was 59, ALT is 53, alkaline phosphatase is 132, troponin is less than 0.012, alcohol level is less than 10, COVID 19 was negative. Patient was placed on supplemental oxygen currently on 2 L of oxygen with a pulse ox of 90%, hemodynamically stable, he is still having not right-sided chest discomfort, he has received some Toradol and morphine for chest discomfort, he was started on the CIWA protocol for possibility of DTs. He has received 500 mL and fluid boluses, and currently his IV fluids are infusing at a rate of 75 ML per hour. On 03/21/2021 patient seen in follow-up on selective care unit, he is awake and alert, appears to be in no acute distress. Room air pulse ox 99%, he is afebri le, vital signs have been stable, breathing seems to be nonlabored, his pain is fairly well controlled with combination of IV Toradol, and IV morphine, today's chest x-ray shows no definite residual pneumothorax of the right lung. CT surgery is following, andRight thoravent was disconnected from wall suction, nonocclusive plug was put in place. There is fluctuation of the diaphragm on the Thoravent, equal breath sounds bilaterally, patient is working and sent spirometer, he is achieving 1750 on it today, lung sounds are clear, no rhonchi or wheezing, today's labs have been reviewed, his sodium is slowly improving and is up to 122, he remains on 0.9 normal saline at a rate of 75 ML per hour, he is tolerating oral intake, his white count is 9.9, hemoglobin is 14. He remains on CIWA protocol, there is no confusion, patient is answering questions appropriately, no agitation, no diaphoresis, no complaints of headaches no tremors. The patient is seen today 03/22/2021 in follow-up on the selective care unit. He is currently sitting up in bed. Awake and alert in no acute distress. He is maintaining O2 saturations in the mid to upper 90s on room air. Afebrile. Hemodynamically stable. Right-sided thoracotomy remains in place. Clamped this morning and follow-up chest x-ray reveals no definite residual pneumothorax is seen. Haziness of the right mid lung zone appears stable compared to previous. There is extensive right hemothorax subcutaneous emphysema noted. Rib fractures are redemonstrated. No significant change. He is pulling approximately 1750 on the incentive spirometer. White count 8.4. Hemoglobin 14.7. Sodium 124. Potassium 4.3. Creatinine 0.39. Objective - Vital Signs Vital signs: Vital Signs Temp 98.2 F 03/22/21 08:00 Pulse 78 03/22/21 08:00 Resp 18 03/22/21 08:00 BP 154/70 03/22/21 08:00 Pulse Ox 98 03/22/21 08:00 Intake & Output 03/21/21 03/22/21 03/22/21 18:59 06:59 18:59 Intake Total 1078 480 240 Output Total 782 250 800 Balance 296 230 -560 Weight 50.8 kg 51 kg Intake: Oral 1078 480 240 Output: Chest Tube Drainage 32 0 Chest Tube 32 Thora-Vent Right Upper 0 Anterior Chest Urine 750 250 800 Other: Voiding Method Urinal Urinal Urinal # Voids 1 - Exam GENERAL EXAM: Awake, alert, agitated, 65-year-old male patient, on room air, comfortable in no apparent distress. HEAD: Normocephalic/atraumatic. EYES: Normal reaction of pupils, equal size. Conjunctiva pink, sclera white. NOSE: Clear with pink turbinates. THROAT: No erythema or exudates. NECK: No masses, no JVD, no thyroid enlargement, no adenopathy. CHEST: No chest wall deformity. Symmetrical expansion. Right anterior chest Thoravent in place there is an occlusive plug in place. There is chest discomfort involving the right side of the chest with deep inspiration or deep breathing and coughing related to multiple rib fractures on the right side LUNGS: Equal air entry with no crackles, wheeze, rhonchi or dullness. CVS: Regular rate and rhythm, normal S1 and S2, no gallops, no murmurs, no rubs ABDOMEN: Soft, nontender. No hepatosplenomegaly, normal bowel sounds, no gua rding or rigidity. EXTREMITIES: No clubbing, no edema, no cyanosis, 2+ pulses and upper and lower extremities. MUSCULOSKELETAL: Muscle strength and tone normal. SPINE: No scoliosis or deformity SKIN: No rashes CENTRAL NERVOUS SYSTEM: Alert and oriented -3. No focal deficits, tone is normal in all 4 extremities. PSYCHIATRIC: Alert and oriented -3. Appropriate affect. Intact judgment and insight. - Labs CBC & Chem 7: 03/22/21 06:56 03/22/21 06:56 Labs: Abnormal Lab Results - Last 24 Hours (Table) 03/22/21 03/22/21 Range/Units 06:56 06:56 RBC 4.17 L (4.30-5.90) m/uL MCV 103.9 H (80.0-100.0) fL MCH 35.4 H (25.0-35.0) pg Plt Count 128 L (150-450) k/uL Sodium 124 L (137-145) mmol/L Chloride 93 L (98-107) mmol/L BUN 8 L (9-20) mg/dL Creatinine 0.39 L (0.66-1.25) mg/dL Assessment and Plan Assessment: #1. Acute hypoxic respiratory failure related to trauma, fall, multiple right- sided rib fractures and large right-sided pneumothorax, status post right Thoravent placement #2. Chest pain related to acute rib fractures of the right posterior lateral seventh, eighth and ninth ribs #3. Hyponatremia, likely related to hypovolemia, and chronic alcoholism #4. Chronic alcoholism, patient is currently on CIWA protocol #5. Chronic smoker #6. Daily marijuana use #7. Chronic pain syndrome, related to lumbar spondylosis, patient follows at the pain clinic #8. Malignant neoplasm of the epiglottis, with radiation treatments in 2019 Plan: The patient was seen and evaluated by Dr. Larose Chest x-ray and labs reviewed Thoravent to be removed per CT services Discharge to home once cleared medically We will follow as needed I, the cosigning physician, performed a history & physical examination of the patient. Lungs sounds are clear, diminished. Maintaining good O2 saturations in the 90s on room air. I discussed the assessment and plan of care with my nurse practitioner, Kaci Ochoa. I attest to the above note as dictated by her.
--- NOTE | 2021-03-22 13:32 | P.PN ---
Subjective Progress Note Date: 03/22/21 CHIEF COMPLAINT: Trip and fall with right-sided rib pain HISTORY OF PRESENT ILLNESS: Patient is hospitalized for multiple right-sided rib fractures with large pneumothorax after a trip and fall. He has a Thoravent chest tube in place. Followed closely by cardiothoracic surgery. Both Chest x- rays today shows no pneumothorax. Cardiothoracic is planning on possibly removing patient's Thoravent chest tube today. He is on room air satting at 98%. He reports that his pain is controlled. He denies any nausea or vomiting. He denies any new pain. He is tolerating diet. Having flatus. Afebrile. WBC 8.4 sodium is up to 124. Medicine service has adjusted IV fluids PHYSICAL EXAM: VITAL SIGNS: Reviewed. GENERAL: Well-developed in no acute distress. HEENT: No sclera icterus. Extraocular movements grossly intact. Moist buccal mucosa. Head is atraumatic, normocephalic. ABDOMEN: Soft. Nondistended. Nontender. NEUROLOGIC: Alert and oriented. Cranial nerves II through XII grossly intact. ASSESSMENT: 1. Status post trip and fall 2. Multiple right rib fractures with large right pneumothorax secondary to trip and fall. Patient has right posterior lateral seventh, eighth and ninth ribs fractured. Status post right Thoravent placement 3. Daily alcohol use 4. Hyponatremia due to hypovolemia and chronic alcoholism 5. Hyperkalemia resolved 6. Leukocytosis reactive. Now resolved 7. Acute hypoxic respiratory failure secondary to pneumothorax and rib fractures PLAN: -encourage patient to use incentive spirometer -Encourage patient to increase activity -Pneumothorax followed by cardiothoracic team. Awaiting their recommendations regarding removal of Thoravent -Continue CIWA protocol -Continue regular diet with 1500 mL per day fluid restrictions due to patient's hyponatremia -Continue pain medication as needed -Consult physical therapy -Anticipate discharge possibly tomorrow if cleared by medicine and cardiothoracic service -Continue GI and DVT prophylaxis. The patient has been refusing his subcu heparin Physician Spine Supervisor note has been reviewed by physician. Signing provider agrees with the documented findings, assessment, and plan of care. Objective - Vital Signs Vital signs: Vital Signs Temp 98.2 F 03/22/21 08:00 Pulse 78 03/22/21 08:00 Resp 18 03/22/21 08:00 BP 154/70 03/22/21 08:00 Pulse Ox 98 03/22/21 08:00 Intake & Output 03/21/21 03/22/21 03/22/21 18:59 06:59 18:59 Intake Total 1078 480 240 Output Total 782 250 800 Balance 296 230 -560 Weight 50.8 kg 51 kg Intake: Oral 1078 480 240 Output: Chest Tube Drainage 32 0 Chest Tube 32 Thora-Vent Right Upper 0 Anterior Chest Urine 750 250 800 Other: Voiding Method Urinal Urinal Urinal # Voids 1 - Labs CBC & Chem 7: 03/22/21 06:56 03/22/21 06:56 Labs: Abnormal Lab Results - Last 24 Hours (Table) 03/22/21 03/22/21 Range/Units 06:56 06:56 RBC 4.17 L (4.30-5.90) m/uL MCV 103.9 H (80.0-100.0) fL MCH 35.4 H (25.0-35.0) pg Plt Count 128 L (150-450) k/uL Sodium 124 L (137-145) mmol/L Chloride 93 L (98-107) mmol/L BUN 8 L (9-20) mg/dL Creatinine 0.39 L (0.66-1.25) mg/dL
[2021-03-22] MEDS: TEMAZEPAM 15 MG CAP PO PRN (20:35)
[2021-03-23 03:55] VITALS: RESP 18
[2021-03-23] MEDS: SODIUM CHLORIDE 0.9% 1,000 ML IV SCH ×2 (06:28→08:47)
[2021-03-23] MEDS: KETOROLAC 15 MG/ML 1 ML VIAL IVP SCH ×2 (06:28→12:07)
[2021-03-23] MEDS: PANTOPRAZOLE 40 MG TABLET PO SCH (06:29)
[2021-03-23] MEDS: THIAMINE 100 MG TAB PO SCH (06:29)
[2021-03-23] MEDS: IPRATROPIUM-ALBUTEROL 3 ML NEB INHALATION SCH ×2 (07:26→11:49)
--- NOTE | 2021-03-23 07:32 | XR ---
EXAMINATION TYPE: XR chest 2V DATE OF EXAM: 03/23/2021 COMPARISON: 03/22/2021 HISTORY: Pneumothorax TECHNIQUE: Frontal and lateral views of the chest are obtained. FINDINGS: Right chest tube is in unchanged position. No residual pneumothorax. Mid peripheral opacity of the right lung appears similar to the prior exam. Subcutaneous emphysema of the right hemithorax is again seen. Cardiac silhouette is unchanged. IMPRESSION: No significant change since the prior exam.
[2021-03-23 08:00] LABS: African American GFR (CKD) >90 (>60 ml/min/1.73 sqM); Anion Gap 5 mmol/L; Blood Urea Nitrogen 4 mg/dL (9-20); Carbon Dioxide 31 mmol/L (22-30); Chloride 93 mmol/L (98-107); Glucose 97 mg/dL (74-99); Non-African American GFR(CKD) >90 (>60 ml/min/1.73 sqM); Potassium 3.7 mmol/L (3.5-5.1); Sodium 129 mmol/L (137-145)
[2021-03-23] MEDS: HEPARIN SODIUM,PORCINE/PF 5,000 UNIT/0.5 ML SYRINGE SQ SCH (08:39)
[2021-03-23] MEDS: METOPROLOL TARTRATE 12.5 MG TAB PO SCH (08:47)
[2021-03-23] MEDS: GABAPENTIN 300 MG CAP PO SCH (08:47)
[2021-03-23] MEDS: MULTIVITAMINS, THERA 1 EACH TAB PO SCH (08:47)
[2021-03-23] MEDS ORDERED: SODIUM CHLORIDE 0.9% 500 ML 500 ML IV ONE (09:26)
--- NOTE | 2021-03-23 09:36 | P.PN ---
Subjective Patient is admitted for acute hypoxic respiratory failure secondary to trauma and the right-sided pneumothorax patient Lashonda doesn't have a chest tube patient has a prominent in place. Patient is ready to be discharged from surgical perspective but patient remains hyponatremic patient sodium is only 124 today patient does have history of alcoholism, does drink beer on daily basis which can cause severe hyponatremia. Patient is only getting 50 mL of normal saline which will be changed to 1 25 mL. Patient is on fluid restriction which will be continued to avoid free water intake. Patient is an not medically stable to be discharged at this time may need 1 more day of IV fluid resuscitation before he can be discharged. Extensive counseling regarding alcoholism was provided patient is on CIWA protocol but doesn't have any withdrawals at this time. 03/23/2021 Patient's serum sodium improved the to 129. Patient's repeat chest x-ray is not showing any pneumothorax at this time. We will give him 500 mL bolus of normal saline. He was asked to quit drinking beer which is responsible for his hyponatremia. Patient is agreeable to do that. Patient is really excited to go home. Patient may need to repeat basic metabolic profile in about 3 days. I do not believe patient will need fluid restriction as patient has hypovolemic hypo natremia. Constitutional: Denied any fatigue denied any fever. Cardio vascular: denied any chest pain, palpitations Gastrointestinal denied any nausea vomiting Pulmonary: Denied any shortness of breath cough Neurologic denied any new focal deficits All inpatient medications were reviewed and appropriate changes in these medications as dictated in the interval history and assessment and plan. Objective - Vital Signs Vital signs: Vital Signs Temp 97.8 F 03/23/21 03:54 Pulse 74 03/23/21 03:54 Resp 18 03/23/21 03:54 BP 152/84 03/23/21 03:54 Pulse Ox 100 03/23/21 03:54 Intake & Output 03/22/21 03/23/21 03/23/21 18:59 06:59 18:59 Intake Total 720 1650 240 Output Total 800 2175 Balance -80 -525 240 Weight 51 kg 51 kg Intake: IV 1650 Sodium Chloride 0.9% 1, 1650 000 ml @ 150 mls/hr IV . Q6H40M [facility] Rx#:[id number] Oral 720 240 Output: Chest Tube Drainage 0 Thora-Vent Right Upper 0 Anterior Chest Urine 800 2175 Other: Voiding Method Urinal Urinal - Exam PHYSICAL EXAMINATION: GENERAL: The patient is alert and oriented x3, not in any acute distress. Well developed, well nourished. HEENT: Pupils are round and equally reacting to light. EOMI. No scleral icterus. No conjunctival pallor. Normocephalic, atraumatic. No pharyngeal erythema. No thyromegaly. CARDIOVASCULAR: S1 and S2 present. No murmurs, rubs, or gallops. PULMONARY: Chest is clear to auscultation, no wheezing or crackles. Thoravent was removed ABDOMEN: Soft, nontender, nondistended, normoactive bowel sounds. No palpable organomegaly. MUSCULOSKELETAL: No joint swelling or deformity. EXTREMITIES: No cyanosis, clubbing, or pedal edema. NEUROLOGICAL: Gross neurological examination did not reveal any focal deficits. SKIN: No rashes. - Labs CBC & Chem 7: 03/22/21 06:56 03/23/21 07:09 Labs: Abnormal Lab Results - Last 24 Hours (Table) 03/23/21 Range/Units 07:09 Sodium 129 L (137-145) mmol/L Chloride 93 L (98-107) mmol/L Carbon Dioxide 31 H (22-30) mmol/L BUN 4 L (9-20) mg/dL Creatinine 0.43 L (0.66-1.25) mg/dL Assessment and Plan Plan: -Acute hypoxic respiratory failure secondary to right-sided pneumothorax , improved and Thoravent removed -Chest pain secondary to rib fractures -Hypovolemic hyponatremia: Secondary to alcoholism and beer intake serum sodium improved to 129 . -Nicotine abuse -Marijuana use -History of laryngeal cancer status post radiation therapy and is in remission at this time. -Alcohol abuse Can be discharged from medical perspective with repeat basic metabolic profile in 3 days
--- NOTE | 2021-03-23 09:43 | P.PN ---
Subjective Progress Note Date: 03/23/21 Principal diagnosis: Traumatic right-sided pneumothorax S/P placement of thoravent by the emergency room physicians, right-sided rib fractures, status post fall from standing, leuk ocytosis/hyponatremia present on admission, acute hypoxic respiratory failure present on admission. Past medical history of current ongoing tobacco dependence, daily EtOH use, daily marijuana use, chronic back pain, hypertension, epiglottis cancer status post radiation in 2019, cardiomyopathy. The patient is seen in follow up today 03/23/2021 at his bedside on the cardiac stepdown unit. He is awake, alert and oriented 3, and is in no acute apparent distress. He is currently sitting up in bed eating his breakfast, denies any complaints of pain or shortness of breath. Chest x-ray this morning shows no residual pneumothorax with some subcutaneous emphysema of the right hemithorax. The right chest Thoravent has been capped for 24 hours. Oxygen saturations are 100% on room air and he is achieving 1750 mL on his incentive spirometry. His is present at his bedside, discussed with the patient and his plans of removal of the right chest Thoravent this morning. The patient is anxious to be discharged home. Objective - Vital Signs Vital signs: Vital Signs Temp 97.8 F 03/23/21 03:54 Pulse 74 03/23/21 03:54 Resp 18 03/23/21 03:54 BP 152/84 03/23/21 03:54 Pulse Ox 100 03/23/21 03:54 Intake & Output 03/22/21 03/23/21 03/23/21 18:59 06:59 18:59 Intake Total 720 1650 240 Output Total 800 2175 Balance -80 -525 240 Weight 51 kg 51 kg Intake: IV 1650 Sodium Chloride 0.9% 1, 1650 000 ml @ 150 mls/hr IV . Q6H40M [facility] Rx#:[id number] Oral 720 240 Output: Chest Tube Drainage 0 Thora-Vent Right Upper 0 Anterior Chest Urine 800 2175 Other: Voiding Method Urinal Urinal - Exam CONSTITUTIONAL: Appears comfortable, cooperative, no acute distress. RESPIRATORY: Lungs sounds essentially clear throughout. Respirations symmetrical, nonlabored. Currently on room air with oxygen saturation 100% %. Able to achieve 1750 mL on incentive spirometry. Strong cough. CARDIOVASCULAR: S1, S2 present. Regular rate and rhythm, sinus rhythm on telemetry. Palpable peripheral pulses bilaterally. No edema present. No calf pain or tenderness noted. SCDs present. GASTROINTESTINAL: Abdomen soft, nontender, nondistended. Active bowel sounds present 4 quadrants. Tolerating diet. GENITOURINARY: Continues to void clear, yellow urine. INTEGUMENTARY: Skin is warm and dry, no clubbing or cyanosis present. NEUROLOGIC: Cranial nerves II through XII intact. MUSKULOSKELETAL: Able to move all extremities, strength equal bilaterally. PSYCHIATRIC: Alert and oriented to person place and time, appropriate affect, intact judgment and insight. INVASIVE LINES AND TUBES: Right-sided thoravent present, and capped. - Labs CBC & Chem 7: 03/22/21 06:56 03/23/21 07:09 Labs: Abnormal Lab Results - Last 24 Hours (Table) 03/23/21 Range/Units 07:09 Sodium 129 L (137-145) mmol/L Chloride 93 L (98-107) mmol/L Carbon Dioxide 31 H (22-30) mmol/L BUN 4 L (9-20) mg/dL Creatinine 0.43 L (0.66-1.25) mg/dL Assessment and Plan Assessment: 1. Traumatic right-sided pneumothorax, right-sided rib fractures, status post fall from standing, S/P placement of right sided thoravent by the ER physicians 2. Leukocytosis, hyponatremia, present on admission 3. Acute hypoxic respiratory failure secondary to above 4. Current chronic ongoing tobacco dependence 5. Daily EtOH use 6. Daily marijuana use 7. Chronic back pain, receives treatment at pain clinic 8. Hypertension 9. History of epiglottis cancer status post radiation in 2019 10. History of cardiomyopathy Plan: 1. Right-sided thoravent removed without incident. Chest x-ray will be repeated 1-2 hours after Thoravent removal. If no evidence of pneumothorax post Thoravent removal the patient is cleared from the cardiothoracic surgery standpoint to be discharged home when okay with primary care service and other consultants. 2. Continue to encourage coughing and deep breathing with incentive spirometry use 10 times every hour while awake. 3. Pain control with current medication regimen. 4. Increase activity, ambulate as tolerated. Patient should be out of bed for all meals. 5. Smoking cessation encouraged. Continue CIWA protocol. 6. Management of other comorbidities per primary care service. 7. We will continue to follow the patient on an as-needed basis. Time with Patient: Greater than 30
--- NOTE | 2021-03-23 10:18 | XR ---
EXAMINATION TYPE: XR chest 1V portable DATE OF EXAM: 03/23/2021 COMPARISON: Earlier same date HISTORY: Chest tube removal TECHNIQUE: Single frontal view of the chest is obtained. FINDINGS: Interval removal of the right chest tube. Trace right apical pneumothorax is seen. Lung bases are excluded from this image. Subcutaneous emphysema is noted in the right hemithorax. Cardiac silhouette is unremarkable. IMPRESSION: Interval removal of the right chest tube. Trace right apical pneumothorax is seen.
[2021-03-23 11:22] VITALS: BP 141/90; PULSE 82; TEMP 97.6
--- NOTE | 2021-03-23 11:36 | P.DS ---
Providers Date of admission: 03/20/21 08:55 Expected date of discharge: 03/23/21 Attending physician: Alejandro Burks Consults: 03/20/21 08:45 Consult Physician Urgent Consulting Provider: Tam Larose Consult Reason/Comments: Multiple right-sided rib fractures, large pneumothorax Do you want consulting provider notified?: Yes 03/20/21 08:47 anesthesia [Consult to Anesthesia] Stat Consulting Provider: Anesthesia,Services Consult Reason/Comments: Large right pneumothorax, multiple rib fractures 03/20/21 10:53 Consult Physician Routine Consulting Provider: Juaquin Capps Consult Reason/Comments: medical management Do you want consulting provider notified?: Yes 03/20/21 11:27 Consult Physician Routine Consulting Provider: Gorge Toth Consult Reason/Comments: traumatic ptx Do you want consulting provider notified?: Yes Primary care physician: [facility] Hospital Course: Discharge diagnosis 1. Status post trip and fall 2. Multiple right rib fractures with large right pneumothorax secondary to trip and fall. Patient has right posterior lateral seventh, eighth and ninth ribs fractured. Status post right Thoravent placement 3. Daily alcohol use 4. Hyponatremia due to hypovolemia and chronic alcoholism 5. Hyperkalemia resolved 6. Leukocytosis reactive. Now resolved 7. 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 Patient presents to emergency room with complaints of right-sided rib pain and chest pain. He had a slip and fall getting off of his boat and landing on the boat deck 2 mornings ago. He takes Tylenol #3 at home with no improvement in his pain. He does admit to some shortness of breath. Patient denies any hitting his head or any loss of consciousness. He denies any abdominal pain. He had chest x-ray completed showing multiple right rib fractures with large right pneumothorax. He had chest tube placed in the ER. Repeat chest x-ray shows interval placement of right chest tube with a resultant reexpansion of the right lung. Patient reports that his pain is controlled. He has been up and ambulating. He denies any shortness of breath. Cardiothoracic team removed Thoravent this morning. Repeat chest x-ray shows trace right apical pneumothorax. Discussed case with Edilson cardiothoracic nurse practitioner. Cardiothoracic has cleared patient for discharge. Pulmonary service has cleared patient for discharge. Medicine service also following in regards to patient's hyponatremia which appears to be chronic due to his alcoholism. Sodium level at discharge is 129. Medicine service has cleared patient for discharge and recommending patient have repeat BMP in 2-3 days to follow-up on sodium level. Patient has been educated to refrain from smoking and alcohol use. Patient is stable for discharge. He has been cleared by a consulting physicians. He is up and ambulating. Tolerating diet. His pain is controlled. He is stable for discharge. Please refer to [facility] rt for any further details. Physician Development Vice President note has been reviewed by physician. Signing provider agrees with the documented findings, assessment, and plan of care. Patient Condition at Discharge: Stable Plan - Discharge Summary Discharge Rx Participant: Yes New Discharge Prescriptions: New Folic Acid 1 mg PO DAILY@1200 #30 tab Multivitamins, Thera [Multivitamin (formulary)] 1 each PO DAILY #30 tab Thiamine [Vitamin B-1] 100 mg PO BID-W/MEALS #30 tab Ketorolac [Toradol] 10 mg PO Q6HR PRN #8 tab PRN Reason: Pain Continue Metoprolol Tartrate [Lopressor] 12.5 mg PO BID Gabapentin [Neurontin] 600 mg PO TID Acetaminophen-Codeine 300-30mg [Tylenol w/codeine #3] 1 tab PO Q8H PRN 30 Days #90 tablet PRN Reason: Pain Changed lisinopriL [Zestril] 10 mg PO HS #0 Discharge Medication List Metoprolol Tartrate [Lopressor] 12.5 mg PO BID 01/29/14 [History] Gabapentin [Neurontin] 600 mg PO TID 02/18/20 [History] Acetaminophen-Codeine 300-30mg [Tylenol w/codeine #3] 1 tab PO Q8H PRN 30 Days #90 tablet 01/11/21 [Rx] Folic Acid 1 mg PO DAILY@1200 #30 tab 03/23/21 [Rx] Ketorolac [Toradol] 10 mg PO Q6HR PRN #8 tab 03/23/21 [Rx] Multivitamins, Thera [Multivitamin (formulary)] 1 each PO DAILY #30 tab 03/23/21 [Rx] Thiamine [Vitamin B-1] 100 mg PO BID-W/MEALS #30 tab 03/23/21 [Rx] lisinopriL [Zestril] 10 mg PO HS #0 03/23/21 [Rx] Follow up Appointment(s)/Referral(s): [facility]inic [Primary Care Provider] - 3 Days Ambulatory/Diagnostic Orders: Basic Metabolic Panel [LAB.AMB] Time Frame: 3 Days, Location: None Selected Patient Instructions/Handouts: How to Stop Smoking (DC) Activity/Diet/Wound Care/Special Instructions: Activity as tolerated Diet regular Patient educated on smoking and alcohol cessation Repeat BMP in 2-3 days Discharge Disposition: HOME SELF-CARE
[2021-03-23] MEDS: FOLIC ACID 1 MG TAB PO SCH (12:07)
[2021-03-23 13:05] VITALS: BMI 16.6
== END 2021-03-23 13:37 | disposition home or self-care (01) | DRG 199 ==
LOC: EC 06:22 → SUPCPDRO 06:22 → 3SCARD 08:55
PROVIDERS: ADMIT Surgery; ATTEND Surgery
PROC: 0W9930Z Drainage of Right Pleural Cavity with Drainage Device, Percutaneous Approach (ICD-10-PCS; principal; 2021-03-20)
DX: S27.0XXA Traumatic pneumothorax, initial encounter (principal); E43 Unspecified severe protein-calorie malnutrition; J96.01 Acute respiratory failure with hypoxia; S22.41XA Multiple fractures of ribs, right side, initial encounter for closed fracture; E87.1 Hypo-osmolality and hyponatremia; I42.9 Cardiomyopathy, unspecified; R17 Unspecified jaundice; Z68.1 Body mass index [BMI] 19.9 or less, adult; D69.6 Thrombocytopenia, unspecified; D72.829 Elevated white blood cell count, unspecified; E86.1 Hypovolemia; E87.5 Hyperkalemia; E87.8 Other disorders of electrolyte and fluid balance, not elsewhere classified; F10.20 Alcohol dependence, uncomplicated; Z71.6 Tobacco abuse counseling; F17.210 Nicotine dependence, cigarettes, uncomplicated; Z71.41 Alcohol abuse counseling and surveillance of alcoholic; G89.4 Chronic pain syndrome; I11.0 Hypertensive heart disease with heart failure; I25.10 Atherosclerotic heart disease of native coronary artery without angina pectoris; I50.9 Heart failure, unspecified; J43.9 Emphysema, unspecified; M47.816 Spondylosis without myelopathy or radiculopathy, lumbar region; T79.7XXA Traumatic subcutaneous emphysema, initial encounter; Z20.822 Contact with and (suspected) exposure to COVID-19; W01.0XXA Fall on same level from slipping, tripping and stumbling without subsequent striking against object, initial encounter; Z79.899 Other long term (current) drug therapy; Z80.0 Family history of malignant neoplasm of digestive organs; Z85.21 Personal history of malignant neoplasm of larynx; Z92.3 Personal history of irradiation; Z98.890 Other specified postprocedural states; K08.109 Complete loss of teeth, unspecified cause, unspecified class
CPT/HCPCS: 31500; 36415; 71045; 71046; 80048; 80053; 80306; 80320; 81001; 83735; 83880; 84484; 85025; 85027; 87635; 93005; 96372; 96374; 96375; 99152; 99291

== ENCOUNTER 2021-03-31 13:27 | Observation (INO) | payer MEDICARE, OTHER ==
--- NOTE | 2021-03-31 13:59 | ED ---
General Adult HPI - General Chief complaint: Alcohol Stated complaint: ETOH Time Seen by Provider: 03/31/21 13:30 Source: patient, EMS, RN notes reviewed, old records reviewed Mode of arrival: EMS Limitations: altered mental status - History of Present Illness Initial comments: This is a 65 her old male who presents emergency department intoxicated. Telly lezama had a couple falls outside and EMS was called when they arrived they thought he was too intoxicated to leave also IV because he was so unstable on his feet approximate the emergency department. Patient had an abrasion to the area above his right eyebrow. Patient denies any pain denies any injury. Patient does admit to drinking heavily but he denies any drug use. - Related Data Home Medications Medication Instructions Recorded Confirmed Metoprolol Tartrate [Lopressor] 12.5 mg PO BID 01/29/14 03/31/21 Gabapentin [Neurontin] 600 mg PO TID 02/18/20 03/31/21 Previous Rx's Medication Instructions Recorded Acetaminophen-Codeine 300-30mg 1 tab PO Q8H PRN 30 Days #90 tablet 01/11/21 [Tylenol w/codeine #3] Folic Acid 1 mg PO DAILY@1200 #30 tab 03/23/21 Ketorolac [Toradol] 10 mg PO Q6HR PRN #8 tab 03/23/21 Multivitamins, Thera [Multivitamin 1 each PO DAILY #30 tab 03/23/21 (formulary)] Thiamine [Vitamin B-1] 100 mg PO BID-W/MEALS #30 tab 03/23/21 lisinopriL [Zestril] 10 mg PO HS #0 03/23/21 Allergies Allergy/AdvReac Type Severity Reaction Status Date / Time No Known Allergies Allergy Verified 03/31/21 14:05 Review of Systems ROS Statement: Those systems with pertinent positive or pertinent negative responses have been documented in the HPI. ROS Other: All systems not noted in ROS Statement are negative. 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 CARDIOMYOPATHY. VARICOSE VEINS. CHRONIC BACK PAIN, DIFFICULTY WALKING DISTANCE OR SITTING, DRY MOUTH. broken ribs from fall History of Any Multi-Drug Resistant Organisms: None Reported Past Surgical History: Back Surgery, Heart Catheterization Additional Past Surgical History / Comment(s): COLONOSCOPY. PAIN CLINIC PROC'S, BACK SURGERY AT [facility] IN [place]. Removed all teeth 2020 Past Anesthesia/Blood Transfusion Reactions: Previous Problems w/ Anesthesia Additional Past Anesthesia/Blood Transfusion Reaction / Comment(s): WITH 2 PAIN PROC WAS AWAKE, PROCEDURE VERY PAINFUL Past Psychological History: No Psychological Hx Reported Smoking Status: Current every day smoker Past Alcohol Use History: Abuse, Daily, Heavy Past Drug Use History: Marijuana - Past Family History Father Family Medical History: Cancer Additional Family Medical History / Comment(s): Father from colon cancer Mother History Unknown: Yes Family Medical History: No Reported History Additional Family Medical History / Comment(s): Mother , not sure of cause General Exam - General Exam Comments Initial Comments: GENERAL: Patient is well-developed and well-nourished. Patient is nontoxic and well- hydrated and is in no acute distress. Patient appears intoxicated ENT: Neck is soft and supple. No significant lymphadenopathy is noted. Oropharynx is clear. Moist mucous membranes. Neck has full range of motion without eliciting any pain. EYES: The sclera were anicteric and conjunctiva were pink and moist. Extraocular movements were intact and pupils were equal round and reactive to light. Eyelids were unremarkable. PULMONARY: Unlabored respirations. Good breath sounds bilaterally. No audible rales rhonchi or wheezing was noted. CARDIOVASCULAR: There is a regular rate and rhythm without any murmurs gallops or rubs. ABDOMEN: Soft and nontender with normal bowel sounds. SKIN: Superficial abrasion above the right eye NEUROLOGIC: Patient is alert and oriented x3. Cranial nerves II through XII are grossly intact. Motor and sensory are also intact. Normal speech, volume and content. Symmetrical smile. MUSCULOSKELETAL: Normal extremities with adequate strength and full range of motion. No lower extremity swelling or edema. No calf tenderness. LYMPHATICS: No significant lymphadenopathy is noted PSYCHIATRIC: Patient is intoxicated and unable to evaluate Limitations: altered mental status Course Vital Signs 03/31/21 13:28 Temperature 98.1 F Pulse Rate 69 Respiratory 16 Rate Blood Pressure 120/72 O2 Sat by Pulse 94 L Oximetry Medical Decision Making - Medical Decision Making CT of the brain and C-spine showed no acute abnormality. - Lab Data Result diagrams: 03/31/21 13:56 04/01/21 03:27 Lab Results 03/31/21 03/31/21 Range/Units 13:56 13:56 WBC 8.7 (3.8-10.6) k/uL RBC 3.95 L (4.30-5.90) m/uL Hgb 14.4 (13.0-17.5) gm/dL Hct 40.2 (39.0-53.0) % MCV 101.8 H (80.0-100.0) fL MCH 36.4 H (25.0-35.0) pg MCHC 35.8 (31.0-37.0) g/dL RDW 12.3 (11.5-15.5) % Plt Count 323 D (150-450) k/uL MPV 7.0 Neutrophils % 88 % Lymphocytes % 5 % Monocytes % 4 % Eosinophils % 1 % Basophils % 1 % Neutrophils # 7.7 (1.3-7.7) k/uL Lymphocytes # 0.4 L (1.0-4.8) k/uL Monocytes # 0.4 (0-1.0) k/uL Eosinophils # 0.1 (0-0.7) k/uL Basophils # 0.1 (0-0.2) k/uL Sodium 124 L (137-145) mmol/L Potassium 4.2 (3.5-5.1) mmol/L Chloride 90 L (98-107) mmol/L Carbon Dioxide 25 (22-30) mmol/L Anion Gap 9 mmol/L BUN <2 L (9-20) mg/dL Creatinine 0.42 L (0.66-1.25) mg/dL Est GFR (CKD-EPI)AfAm >90 (>60 ml/min/1.73 sqM) Est GFR (CKD-EPI)NonAf >90 (>60 ml/min/1.73 sqM) Glucose 92 (74-99) mg/dL Calcium 8.5 (8.4-10.2) mg/dL Magnesium 2.2 (1.6-2.3) mg/dL Total Bilirubin 0.5 (0.2-1.3) mg/dL AST 44 (17-59) U/L ALT 29 (4-49) U/L Alkaline Phosphatase 117 (38-126) U/L Total Protein 6.6 (6.3-8.2) g/dL Albumin 4.0 (3.5-5.0) g/dL Lipase 163 (23-300) U/L Disposition Clinical Impression: Alcohol intoxication Disposition: ADMITTED IP TO THIS HOSP
[2021-03-31] MEDS ORDERED: THIAMINE 100 MG/ML 2 ML VIAL IM STA (14:27)
[2021-03-31] MEDS ORDERED: LORazepam 2 MG/ML INJ IV PRN ×3 (14:27)
[2021-03-31] MEDS ORDERED: SODIUM CHLORIDE 0.9% 1,000 ML IV ONE (14:28)
[2021-03-31] MEDS ORDERED: SODIUM CHLORIDE 0.9% 500 ML 500 ML IV ONE (14:28)
[2021-03-31] MEDS ORDERED: SODIUM CHLORIDE 0.9% 250 ML IV ONE (14:28)
[2021-03-31] MEDS ORDERED: SODIUM CHLORIDE 0.9% 1,000 ML with MVI, ADULT NO.4 WITH VIT K 10 ML, THIAMINE 100 MG, F... IV ONE ×4 (14:29)
[2021-03-31 14:30] LABS: Basophils # (A) 0.1 k/uL (0-0.2); Basophils % (A) 1 %; Eosinophils # (A) 0.1 k/uL (0-0.7); Eosinophils % (A) 1 %; HCT 40.2 % (39.0-53.0); HGB 14.4 gm/dL (13.0-17.5); Lymphocytes # (A) 0.4 k/uL (1.0-4.8); Lymphocytes % (A) 5 %; MCH 36.4 pg (25.0-35.0); MCHC 35.8 g/dL (31.0-37.0); MCV 101.8 fL (80.0-100.0); Monocytes # (A) 0.4 k/uL (0-1.0); Monocytes % (A) 4 %; Neutrophils # (A) 7.7 k/uL (1.3-7.7); Neutrophils % (A) 88 %; RBC 3.95 m/uL (4.30-5.90); RDW 12.3 % (11.5-15.5); WBC 8.7 k/uL (3.8-10.6)
--- NOTE | 2021-03-31 14:32 | CT ---
EXAMINATION TYPE: CT brain lucero patrick DATE OF EXAM: 03/31/2021 COMPARISON: none HISTORY: Fall with Left supraorbital injury and laceration CT DLP: 1296.[address] of the brain was performed. The ventricles, basal cisterns and sulci overlying the cerebral convexities demonstrate mild enlargem ent. There is no evidence for intracranial hemorrhage or sulcal effacement. There is decreased attenuatio n about the periventricular white matter and deep white matter of both cerebral hemispheres, compatib le with chronic small vessel ischemia. No mass effects are seen. If symptoms persist consider MRI. Osseous calvarium is intact. IMPRESSION: 1. Age related atrophic and chronic small vessel ischemic change without acute intracranial process seen at this time. CT Cervical Spine: Unenhanced CT of the cervical spine was performed with bone and soft tissue window settings submitted . Coronal and sagittal reconstruction is obtained. There is normal alignment and prevertebral soft tissues. No evidence for acute cervical fracture . Scattered degenerative disc disease and spondylosis. Biapical scarring. IMPRESSION: 1. No evidence for acute fracture or subluxation of the cervical spine.
[2021-03-31 14:48] LABS: ALT 29 U/L (4-49); AST 44 U/L (17-59); African American GFR (CKD) >90 (>60 ml/min/1.73 sqM); Alkaline Phosphatase 117 U/L (38-126); Anion Gap 9 mmol/L; Blood Urea Nitrogen <2 mg/dL (9-20); Calcium 8.5 mg/dL (8.4-10.2); Carbon Dioxide 25 mmol/L (22-30); Chloride 90 mmol/L (98-107); Glucose 92 mg/dL (74-99); Lipase 163 U/L (23-300); Magnesium 2.2 mg/dL (1.6-2.3); Non-African American GFR(CKD) >90 (>60 ml/min/1.73 sqM); Potassium 4.2 mmol/L (3.5-5.1); Sodium 124 mmol/L (137-145); Total Bilirubin 0.5 mg/dL (0.2-1.3); Total Protein 6.6 g/dL (6.3-8.2)
[2021-03-31 14:53] LABS: Platelet Count 323 k/uL (150-450)
[2021-03-31] MEDS ORDERED: Acetaminophen-Codeine 300-30mg TAB PO PRN ×2 (16:38→17:01)
[2021-03-31] MEDS ORDERED: THIAMINE 100 MG TAB PO SCH ×2 (17:30)
[2021-03-31] MEDS ORDERED: ETODOLAC 400 MG TAB PO PRN (17:37)
[2021-03-31 20:27] VITALS: RESP 20
[2021-03-31] MEDS ORDERED: lisinopriL 10 MG TAB PO SCH (21:00)
[2021-03-31] MEDS: METOPROLOL TARTRATE 12.5 MG TAB PO SCH (21:05)
[2021-03-31] MEDS: GABAPENTIN 300 MG CAP PO SCH (21:05)
[2021-03-31] MEDS ORDERED: ZOLPIDEM 5 MG TAB PO PRN (22:14)
--- NOTE | 2021-04-01 00:12 | P.HPIM ---
History of Present Illness H&P Date: 03/31/21 Chief Complaint: Fall Past Medical History Past Medical History: Cancer, Heart Failure, Hypertension Additional Past Medical History / Comment(s): CANCER EPIGLOTTIS-02/25/19-tx with radiation (finished 04/2019). CARDIOMYOPATHY. VARICOSE VEINS. CHRONIC BACK PAIN, DIFFICULTY WALKING DISTANCE OR SITTING, DRY MOUTH. broken ribs from fall History of Any Multi-Drug Resistant Organisms: None Reported Past Surgical History: Back Surgery, Heart Catheterization Additional Past Surgical History / Comment(s): COLONOSCOPY. PAIN CLINIC PROC'S, BACK SURGERY AT [facility] [place]. Removed all teeth 2020 Past Anesthesia/Blood Transfusion Reactions: Previous Problems w/ Anesthesia Additional Past Anesthesia/Blood Transfusion Reaction / Comment(s): WITH 2 PAIN PROC WAS AWAKE, PROCEDURE VERY PAINFUL Smoking Status: Current every day smoker - Past Family History Father Family Medical History: Cancer Additional Family Medical History / Comment(s): Father from colon cancer Mother History Unknown: Yes Family Medical History: No Reported History Additional Family Medical History / Comment(s): Mother , not sure of cause Medications and Allergies Home Medications Medication Instructions Recorded Confirmed Type Metoprolol Tartrate [Lopressor] 12.5 mg PO BID 01/29/14 03/31/21 History Gabapentin [Neurontin] 600 mg PO TID 02/18/20 03/31/21 History Acetaminophen-Codeine 300-30mg 1 tab PO Q8H PRN 30 Days #90 tablet 01/11/21 03/31/21 Rx [Tylenol w/codeine #3] Folic Acid 1 mg PO DAILY@1200 #30 tab 03/23/21 03/31/21 Rx Ketorolac [Toradol] 10 mg PO Q6HR PRN #8 tab 03/23/21 03/31/21 Rx Multivitamins, Thera [Multivitamin 1 each PO DAILY #30 tab 03/23/21 03/31/21 Rx (formulary)] Thiamine [Vitamin B-1] 100 mg PO BID-W/MEALS #30 tab 03/23/21 03/31/21 Rx lisinopriL [Zestril] 10 mg PO HS #0 03/23/21 03/31/21 Rx Allergies Allergy/AdvReac Type Severity Reaction Status Date / Time No Known Allergies Allergy Verified 03/31/21 14:05 Physical Exam Vitals: Vital Signs Temp Pulse Pulse Resp BP BP Pulse Ox 03/31/21 16:45 98.1 F 73 18 129/80 99 03/31/21 13:28 98.1 F 69 16 120/72 94 L Intake and Output 03/31/21 03/31/21 03/31/21 06:59 14:59 22:59 Other: Weight 48.988 kg 48.988 kg Results CBC & Chem 7: 03/31/21 13:56 04/01/21 03:27 Labs: Abnormal Lab Results - Last 24 Hours (Table) 03/31/21 03/31/21 Range/Units 13:56 13:56 RBC 3.95 L (4.30-5.90) m/uL MCV 101.8 H (80.0-100.0) fL MCH 36.4 H (25.0-35.0) pg Lymphocytes # 0.4 L (1.0-4.8) k/uL Sodium 124 L (137-145) mmol/L Chloride 90 L (98-107) mmol/L BUN <2 L (9-20) mg/dL Creatinine 0.42 L (0.66-1.25) mg/dL
[2021-04-01 04:10] LABS: African American GFR (CKD) >90 (>60 ml/min/1.73 sqM); Anion Gap 5 mmol/L; Blood Urea Nitrogen 3 mg/dL (9-20); Calcium 8.8 mg/dL (8.4-10.2); Carbon Dioxide 27 mmol/L (22-30); Chloride 100 mmol/L (98-107); Glucose 77 mg/dL (74-99); Magnesium 2.2 mg/dL (1.6-2.3); Non-African American GFR(CKD) >90 (>60 ml/min/1.73 sqM); Potassium 4.1 mmol/L (3.5-5.1); Sodium 132 mmol/L (137-145)
[2021-04-01 05:00] VITALS: BP 158/77; TEMP 99.2
[2021-04-01] MEDS ORDERED: THIAMINE 100 MG TAB PO SCH (07:30)
[2021-04-01] MEDS: METOPROLOL TARTRATE 12.5 MG TAB PO SCH (07:55)
[2021-04-01] MEDS: GABAPENTIN 300 MG CAP PO SCH (07:55)
[2021-04-01] MEDS ORDERED: MULTIVITAMINS, THERA 1 EACH TAB PO SCH (09:00)
[2021-04-01 10:51] VITALS: PULSE 80
[2021-04-01] MEDS ORDERED: FOLIC ACID 1 MG TAB PO SCH (12:00)
== END 2021-04-01 11:40 | disposition home or self-care (01) ==
LOC: EC 13:27 → 5NMEDONC 14:28
PROVIDERS: ADMIT Internal Medicine; ATTEND Internal Medicine
DX: F10.129 Alcohol abuse with intoxication, unspecified (principal); I11.0 Hypertensive heart disease with heart failure; I50.9 Heart failure, unspecified; I42.9 Cardiomyopathy, unspecified; R26.2 Difficulty in walking, not elsewhere classified; R68.2 Dry mouth, unspecified; G89.29 Other chronic pain; M54.9 Dorsalgia, unspecified; F17.200 Nicotine dependence, unspecified, uncomplicated; I83.90 Asymptomatic varicose veins of unspecified lower extremity; Z79.899 Other long term (current) drug therapy; Z85.21 Personal history of malignant neoplasm of larynx; Z87.81 Personal history of (healed) traumatic fracture; Z80.0 Family history of malignant neoplasm of digestive organs
CPT/HCPCS: 82075; 96374; 99285; 36415; 80053; 80048; 83690; 83735 ×2; 85025; 72125; 70450; G0378 ×2; J3411

== ENCOUNTER 2021-05-16 20:19 | Inpatient (IN) | payer OTHER, MEDICAID, MEDICARE ==
[2021-05-16] MEDS ORDERED: SODIUM CHLORIDE 0.9% 500 ML 500 ML IV STA (21:13)
--- NOTE | 2021-05-16 21:34 | ED ---
General Adult HPI - General Chief complaint: Shortness of Breath Stated complaint: ELY Time Seen by Provider: 05/16/21 20:58 Source: patient, EMS Mode of arrival: EMS - History of Present Illness Initial comments: 65 year-old male patient presents to the emergency department for evaluation of increased shortness of breath. Patient's is present states that he had a fall in February had rib fractures and pneumothorax and states he has been declining since then. States that today he is reporting increased shortness of breath. No increase in cough or sputum production. States he has had some mild chest pain today. Denies sweats, nausea, or vomiting. States he does not have a good appetite and has note been eating well. He did complete treatment for throat cancer. Patient denies any recent rash, fever, chills, abdominal pain, diarrhea, constipation, back pain, numbness, tingling, dizziness, weakness, hematuria, dysuria, urinary urgency, urinary frequency, headache, visual changes, or any other complaints. - Related Data Home Medications Medication Instructions Recorded Confirmed Metoprolol Tartrate [Lopressor] 12.5 mg PO BID 01/29/14 05/16/21 Gabapentin [Neurontin] 600 mg PO TID 02/18/20 05/16/21 Multivitamins, Thera [Multivitamin 1 tab PO DAILY 05/16/21 05/16/21 (formulary)] Thiamine [Vitamin B-1] 100 mg PO AC-BID 05/16/21 05/16/21 Previous Rx's Medication Instructions Recorded Acetaminophen-Codeine 300-30mg 1 tab PO Q8H PRN 30 Days #90 tablet 01/11/21 [Tylenol w/codeine #3] Folic Acid 1 mg PO DAILY@1200 #30 tab 03/23/21 lisinopriL [Zestril] 10 mg PO HS #0 03/23/21 Allergies Allergy/AdvReac Type Severity Reaction Status Date / Time No Known Allergies Allergy Verified 03/31/21 14:05 Review of Systems ROS Statement: Those systems with pertinent positive or pertinent negative responses have been documented in the HPI. ROS Other: All systems not noted in ROS Statement are negative. 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 CARDIOMYOPATHY. VARICOSE VEINS. CHRONIC BACK PAIN, DIFFICULTY WALKING DISTANCE OR SITTING, DRY MOUTH. broken ribs from fall History of Any Multi-Drug Resistant Organisms: None Reported Past Surgical History: Back Surgery, Heart Catheterization Additional Past Surgical History / Comment(s): COLONOSCOPY. PAIN CLINIC PROC'S, BACK SURGERY AT [facility] IN [place]. Removed all teeth 2020 Past Anesthesia/Blood Transfusion Reactions: Previous Problems w/ Anesthesia Additional Past Anesthesia/Blood Transfusion Reaction / Comment(s): WITH 2 PAIN PROC WAS AWAKE, PROCEDURE VERY PAINFUL Past Psychological History: No Psychological Hx Reported Smoking Status: Current every day smoker Past Alcohol Use History: Heavy Past Drug Use History: None Reported - Past Family History Father Family Medical History: Cancer Additional Family Medical History / Comment(s): Father from colon cancer Mother History Unknown: Yes Family Medical History: No Reported History Additional Family Medical History / Comment(s): Mother , not sure of cause General Exam General appearance: alert, in no apparent distress, other (This is a well- developed, thin appearing adult male patient in no acute distress. Vital signs upon presentation temperature 97.7F, pulse 74, respirations 20, blood pressure 123/99, pulse ox 96% on room air.) Eye exam: Present: normal appearance, PERRL, EOMI. Absent: scleral icterus, conjunctival injection, periorbital swelling ENT exam: Present: normal exam, normal oropharynx, mucous membranes moist Respiratory exam: Present: normal lung sounds bilaterally. Absent: respiratory distress, wheezes, rales, rhonchi, stridor Cardiovascular Exam: Present: regular rate, normal rhythm, normal heart sounds. Absent: systolic murmur, diastolic murmur, rubs, gallop, clicks GI/Abdominal exam: Present: soft, tenderness (Midepigastric), normal bowel soun ds. Absent: distended, guarding, rebound, rigid Neurological exam: Present: alert, oriented X3, CN II-XII intact Psychiatric exam: Present: normal affect, normal mood Skin exam: Present: warm, dry, intact, normal color. Absent: rash Course Vital Signs 05/16/21 05/16/21 05/16/21 20:43 20:49 23:53 Temperature 97.7 F 97.4 F L Pulse Rate 74 57 L Respiratory 20 22 16 Rate Blood Pressure 123/99 131/88 O2 Sat by Pulse 96 100 Oximetry Medical Decision Making - Medical Decision Making 65-year-old male patient presented to the emergency department today for evaluation of increased shortness of breath, weakness, and chest pain. On exam patient appears emaciated. Lungs were clear to auscultation. Vital signs in acceptable range. Labs reviewed and showed hyponatremia at 127. Chest xray negative. EKG showed no new changes. Upon re-evaluation he reports nausea, persistent symptoms. Will admit for serial troponins and cardiac evaluation. Gentle sodium replacement with 0.9% NS. He is agreeable with this plan. Case discussed with my attending Dr. Kelly. - Lab Data Result diagrams: 05/16/21 21:17 05/16/21 21:17 Lab Results 05/16/21 05/16/21 05/16/21 Range/Units 21:17 21:17 21:17 WBC 6.8 (3.8-10.6) k/uL RBC 4.02 L (4.30-5.90) m/uL Hgb 14.5 (13.0-17.5) gm/dL Hct 42.1 (39.0-53.0) % MCV 104.6 H (80.0-100.0) fL MCH 36.0 H (25.0-35.0) pg MCHC 34.5 (31.0-37.0) g/dL RDW 12.7 (11.5-15.5) % Plt Count 207 (150-450) k/uL MPV 7.8 Neutrophils % 86 % Lymphocytes % 8 % Monocytes % 4 % Eosinophils % 0 % Basophils % 0 % Neutrophils # 5.8 (1.3-7.7) k/uL Lymphocytes # 0.5 L (1.0-4.8) k/uL Monocytes # 0.3 (0-1.0) k/uL Eosinophils # 0.0 (0-0.7) k/uL Basophils # 0.0 (0-0.2) k/uL Macrocytosis Slight PT 10.8 (9.0-12.0) sec INR 1.0 (<1.2) APTT 26.8 (22.0-30.0) sec Sodium (137-145) mmol/L Potassium (3.5-5.1) mmol/L Chloride (98-107) mmol/L Carbon Dioxide (22-30) mmol/L Anion Gap mmol/L BUN (9-20) mg/dL Creatinine (0.66-1.25) mg/dL Est GFR (CKD-EPI)AfAm (>60 ml/min/1.73 sqM) Est GFR (CKD-EPI)NonAf (>60 ml/min/1.73 sqM) Glucose (74-99) mg/dL Plasma Lactic Acid Kj (0.7-2.0) mmol/L Calcium (8.4-10.2) mg/dL Magnesium (1.6-2.3) mg/dL Total Bilirubin (0.2-1.3) mg/dL AST (17-59) U/L ALT (4-49) U/L Alkaline Phosphatase (38-126) U/L Troponin I (0.000-0.034) ng/mL Total Protein (6.3-8.2) g/dL Albumin (3.5-5.0) g/dL Lipase (23-300) U/L Urine Color Yellow Urine Appearance Clear (Clear) Urine pH 5.5 (5.0-8.0) Ur Specific [place] 1.021 (1.001-1.035) Urine Protein Trace H (Negative) Urine Glucose (UA) Negative (Negative) Urine Ketones Negative (Negative) Urine Blood Negative (Negative) Urine Nitrite Negative (Negative) Urine Bilirubin Negative (Negative) Urine Urobilinogen <2.0 (<2.0) mg/dL Ur Leukocyte Esterase Negative (Negative) Serum Alcohol mg/dL 05/16/21 05/16/21 05/16/21 Range/Units 21:17 21:17 21:17 WBC (3.8-10.6) k/uL RBC (4.30-5.90) m/uL Hgb (13.0-17.5) gm/dL Hct (39.0-53.0) % MCV (80.0-100.0) fL MCH (25.0-35.0) pg MCHC (31.0-37.0) g/dL RDW (11.5-15.5) % Plt Count (150-450) k/uL MPV Neutrophils % % Lymphocytes % % Monocytes % % Eosinophils % % Basophils % % Neutrophils # (1.3-7.7) k/uL Lymphocytes # (1.0-4.8) k/uL Monocytes # (0-1.0) k/uL Eosinophils # (0-0.7) k/uL Basophils # (0-0.2) k/uL Macrocytosis PT (9.0-12.0) sec INR (<1.2) APTT (22.0-30.0) sec Sodium 127 L (137-145) mmol/L Potassium 3.7 (3.5-5.1) mmol/L Chloride 97 L (98-107) mmol/L Carbon Dioxide 24 (22-30) mmol/L Anion Gap 6 mmol/L BUN 8 L (9-20) mg/dL Creatinine 0.49 L (0.66-1.25) mg/dL Est GFR (CKD-EPI)AfAm >90 (>60 ml/min/1.73 sqM) Est GFR (CKD-EPI)NonAf >90 (>60 ml/min/1.73 sqM) Glucose 112 H (74-99) mg/dL Plasma Lactic Acid Kj 1.3 (0.7-2.0) mmol/L Calcium 9.1 (8.4-10.2) mg/dL Magnesium 2.1 (1.6-2.3) mg/dL Total Bilirubin 0.4 (0.2-1.3) mg/dL AST 27 (17-59) U/L ALT 16 (4-49) U/L Alkaline Phosphatase 90 (38-126) U/L Troponin I <0.012 (0.000-0.034) ng/mL Total Protein 6.1 L (6.3-8.2) g/dL Albumin 3.4 L (3.5-5.0) g/dL Lipase 157 (23-300) U/L Urine Color Urine Appearance (Clear) Urine pH (5.0-8.0) Ur Specific [place] (1.001-1.035) Urine Protein (Negative) Urine Glucose (UA) (Negative) Urine Ketones (Negative) Urine Blood (Negative) Urine Nitrite (Negative) Urine Bilirubin (Negative) Urine Urobilinogen (<2.0) mg/dL Ur Leukocyte Esterase (Negative) Serum Alcohol <10 mg/dL - EKG Data -: EKG Interpreted by Ne EKG Comments: EKG obtained at 2053 shows normal sinus rhythm with an incomplete right bundle branch block, ventricular rate is 71, MA interval 164, QRS duration 102, QT 442, QTc 480. No evidence of ST elevation or depression. - Radiology Data Radiology results: report reviewed, image reviewed Two-view x-ray of the chest is obtained. Report was reviewed in its entirety. Impression by Dr. Mckee shows COPD. There is clearing of the soft tissue air compared to old exam. No acute lung disease. Disposition Clinical Impression: Chest pain, Shortness of breath, Weakness, Hyponatremia Disposition: ADMITTED IP TO THIS [facility] Condition: Serious Decision to Admit Reason: Admit from EC Decision Date: 05/16/21 Decision Time: 23:26
[2021-05-16 21:36] LABS: ALT 16 U/L (4-49); AST 27 U/L (17-59); African American GFR (CKD) >90 (>60 ml/min/1.73 sqM); Albumin 3.4 g/dL (3.5-5.0); Alcohol <10 mg/dL; Alkaline Phosphatase 90 U/L (38-126); Anion Gap 6 mmol/L; Basophils % (A) 0 %; Blood Urea Nitrogen 8 mg/dL (9-20); Calcium 9.1 mg/dL (8.4-10.2); Carbon Dioxide 24 mmol/L (22-30); Chloride 97 mmol/L (98-107); Eosinophils % (A) 0 %; Glucose 112 mg/dL (74-99); HCT 42.1 % (39.0-53.0); HGB 14.5 gm/dL (13.0-17.5); Lipase 157 U/L (23-300); Lymphocytes # (A) 0.5 k/uL (1.0-4.8); Lymphocytes % (A) 8 %; MCHC 34.5 g/dL (31.0-37.0); MCV 104.6 fL (80.0-100.0); Macrocytosis Slight; Magnesium 2.1 mg/dL (1.6-2.3); Mean Platelet Volume 7.8; Monocytes # (A) 0.3 k/uL (0-1.0); Monocytes % (A) 4 %; Neutrophils # (A) 5.8 k/uL (1.3-7.7); Neutrophils % (A) 86 %; Non-African American GFR(CKD) >90 (>60 ml/min/1.73 sqM); Platelet Count 207 k/uL (150-450); Potassium 3.7 mmol/L (3.5-5.1); RBC 4.02 m/uL (4.30-5.90); RDW 12.7 % (11.5-15.5); Sodium 127 mmol/L (137-145); Total Bilirubin 0.4 mg/dL (0.2-1.3); Total Protein 6.1 g/dL (6.3-8.2); WBC 6.8 k/uL (3.8-10.6)
--- NOTE | 2021-05-16 21:37 | XR ---
EXAMINATION TYPE: XR chest 2V DATE OF EXAM: 05/16/2021 COMPARISON: 03/23/2021 HISTORY: Short of breath TECHNIQUE: FINDINGS: There is no heart failure nor confluent pneumonic infiltrate. Costophrenic angles are clear . There is pulmonary hyperinflation and flattening of the diaphragm. Bony thorax is intact. IMPRESSION: COPD. There is clearing of the soft tissue air compared to old exam. No acute lung diseas e.
[2021-05-16 21:40] LABS: Partial Thromboplastin Time 26.8 sec (22.0-30.0); Prothrombin Time 10.8 sec (9.0-12.0)
[2021-05-16 22:26] LABS: Appearance,Urine Clear (Clear); Bilirubin,Urine Negative (Negative); Blood,Urine Negative (Negative); Color,Urine Yellow; Glucose,Urine (UA) Negative (Negative); Ketones,Urine Negative (Negative); Leukocyte Esterase,Urine Negative (Negative); Nitrite,Urine Negative (Negative); PH, Urine 5.5 (5.0-8.0); Protein,Urine Trace (Negative); Specific Gravity,Urine 1.021 (1.001-1.035); Urobilinogen,Urine <2.0 mg/dL (<2.0)
[2021-05-16] MEDS ORDERED: ONDANSETRON 4 MG/2 ML VIAL IVP STA (23:23)
[2021-05-16] MEDS ORDERED: LORazepam 2 MG/ML INJ IV STA (23:23)
[2021-05-16] MEDS ORDERED: NALOXONE 0.4 MG/ML 1 ML VIAL IV PRN (23:24)
[2021-05-16] MEDS ORDERED: ONDANSETRON 4 MG/2 ML VIAL IVP PRN (23:24)
[2021-05-16] MEDS: SODIUM CHLORIDE 0.9% 1,000 ML IV SCH (23:51)
[2021-05-17] MEDS ORDERED: LORazepam 2 MG/ML INJ IV STA (01:46)
[2021-05-17] MEDS: LORazepam 2 MG/ML INJ IV PRN ×8 (09:29→23:37)
[2021-05-17] MEDS ORDERED: IPRATROPIUM-ALBUTEROL 3 ML NEB INHALATION PRN (10:09)
--- NOTE | 2021-05-17 10:13 | P.HPIM ---
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 Chronic back pain with difficulty walking for distance. He follows up in the [place] Patient presents because of dyspnea for 2 days duration associated with some chest tightness. Patient states that since his been having dyspnea with some cough and brown/yellow phlegm for the last 3 weeks however it got really worse yesterday and his told him he has to go to the hospital. No significant chest pain, he has some mild chest pain in the middle yesterday which is resolved. Also patient complains from exertional dyspnea and dizziness, where he goes to the restroom/kitchen he got dizzy and short of breath and he has to sit down. About 3 weeks ago and hit his head. But after that he states he is been all right. Denies any abdominal pain, no nausea vomiting,. No urgency in his urine, no dysuria. No headache. No weakness or numbness. No blurred vision or slurred speech. He smokes about half pack per day, patient is counseled to quit and he states is hard for him to quit, also he declined nicotine patch. He drinks 3-4 beers per day. He denies illicit drugsHe complains from legs are restless and he got 1 dose of Ativan in the emergency room and he feels better. Patient was noticed to stand up next to his bed by ER staff. Patient is afebrile, Vitas looks stable, labs including CBC, BMP and liver enzymes are unremarkable except for low sodium of 127. Troponin 3 are negative less than 0.012. Lipase normal at 157. Preoperative diagnosis is nonsuspicious of infection. 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 Review of Systems CONSTITUTIONAL: No fever, no malaise, no fatigue. HEENT: No recent visual problems or hearing problems. Denied any sore throat. CARDIOVASCULAR: No orthopnea, PND, no palpitations, no syncope. PULMONARY: No shortness of breath, no cough, no hemoptysis. GASTROINTESTINAL: No diarrhea, no nausea, no vomiting, no abdominal pain. Normoactive bowel sounds. NEUROLOGICAL: No headaches, no weakness, no numbness. HEMATOLOGICAL: Denies any bleeding or petechiae. GENITOURINARY: Denies any burning micturition, frequency, or urgency. MUSCULOSKELETAL/RHEUMATOLOGICAL: Denies any joint pain, swelling, or any muscle pain. ENDOCRINE: Denies any polyuria or polydipsia. 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 CARDIOMYOPATHY. VARICOSE VEINS. CHRONIC BACK PAIN, DIFFICULTY WALKING DISTANCE OR SITTING, DRY MOUTH. broken ribs from fall History of Any Multi-Drug Resistant Organisms: None Reported Past Surgical History: Back Surgery, Heart Catheterization Additional Past Surgical History / Comment(s): COLONOSCOPY. PAIN CLINIC PROC'S, BACK SURGERY AT [facility] [place]. Removed all teeth 2020 Past Anesthesia/Blood Transfusion Reactions: Previous Problems w/ Anesthesia Additional Past Anesthesia/Blood Transfusion Reaction / Comment(s): WITH 2 PAIN PROC WAS AWAKE, PROCEDURE VERY PAINFUL Past Psychological History: No Psychological Hx Reported Smoking Status: Current every day smoker Past Alcohol Use History: Heavy Past Drug Use History: None Reported - Past Family History Father Family Medical History: Cancer Additional Family Medical History / Comment(s): Father from colon cancer Mother History Unknown: Yes Family Medical History: No Reported History Additional Family Medical History / Comment(s): Mother , not sure of cause Medications and Allergies Home Medications Medication Instructions Recorded Confirmed Type Metoprolol Tartrate [Lopressor] 12.5 mg PO BID 01/29/14 05/16/21 History Gabapentin [Neurontin] 600 mg PO TID 02/18/20 05/16/21 History Acetaminophen-Codeine 300-30mg 1 tab PO Q8H PRN 30 Days #90 tablet 01/11/21 05/16/21 Rx [Tylenol w/codeine #3] Folic Acid 1 mg PO DAILY@1200 #30 tab 03/23/21 05/16/21 Rx lisinopriL [Zestril] 10 mg PO HS #0 03/23/21 05/16/21 Rx Multivitamins, Thera [Multivitamin 1 tab PO DAILY 05/16/21 05/16/21 History (formulary)] Thiamine [Vitamin B-1] 100 mg PO AC-BID 05/16/21 05/16/21 History Allergies Allergy/AdvReac Type Severity Reaction Status Date / Time No Known Allergies Allergy Verified 03/31/21 14:05 Physical Exam Vitals: Vital Signs Temp Pulse Resp BP Pulse Ox 05/17/21 08:04 73 20 144/80 100 05/17/21 05:17 97.6 F 67 18 147/89 97 05/16/21 23:53 97.4 F L 57 L 16 131/88 100 05/16/21 20:49 22 05/16/21 20:43 97.7 F 74 20 123/99 96 Intake and Output 05/16/21 05/17/21 05/17/21 22:59 06:59 14:59 Other: Weight 48.534 kg -GENERAL: The patient is alert and oriented x3, not in any acute distress. ,malnourished, and generally weak HEENT: Pupils are round and equally reacting to light. EOMI. No scleral icterus. No conjunctival pallor. Normocephalic, atraumatic. No pharyngeal erythema. No thyromegaly. CARDIOVASCULAR: S1 and S2 present. No murmurs, rubs, or gallops. PULMONARY: Chest is clear to auscultation, no wheezing or crackles. ABDOMEN: Soft, nontender, nondistended, normoactive bowel sounds. No palpable organomegaly. MUSCULOSKELETAL: No joint swelling or deformity. EXTREMITIES: No cyanosis, clubbing, or pedal edema. NEUROLOGICAL: Gross neurological examination did not reveal any focal deficits. SKIN: No rashes. No petechiae Results CBC & Chem 7: 05/16/21 21:17 05/16/21 21:17 Labs: Abnormal Lab Results - Last 24 Hours (Table) 05/16/21 05/16/21 05/16/21 Range/Units 21:17 21:17 21:17 RBC 4.02 L (4.30-5.90) m/uL MCV 104.6 H (80.0-100.0) fL MCH 36.0 H (25.0-35.0) pg Lymphocytes # 0.5 L (1.0-4.8) k/uL Sodium 127 L (137-145) mmol/L Chloride 97 L (98-107) mmol/L BUN 8 L (9-20) mg/dL Creatinine 0.49 L (0.66-1.25) mg/dL Glucose 112 H (74-99) mg/dL Total Protein 6.1 L (6.3-8.2) g/dL Albumin 3.4 L (3.5-5.0) g/dL Urine Protein Trace H (Negative) Assessment and Plan Assessment: Dyspnea and chest tightness, rule out cardiac causes Dizziness fall about 3 weeks ago Hypertension COPD, maybe only mild exacerbation Chronic Hyponatremia, multifactorial, could be dehydration and alcohol abuse Moderate calorie protein malnutrition History of 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 Chronic back pain with difficulty walking for distance. Plan: This is a pleasant 65 years old male who presents with SOB/chest tightness. Cardiology consult. Check echocardiogram. Check orthostatic vitals and CT of the brain Inhaled steroids Continue with CIWA protocol, thiamine Check d-dimer Follow-up Sodium level Diet consult Continue with gentle hydration Start Requip Labs and medication were reviewed.. Continue same treatment. Continue with symptomatic treatment. Resume home medication. Monitor lytes and vitals. DVT and GI prophylaxis. Further recommendations depends on the clinical course of the patient DVT prophylaxis: Subcutaneous heparin GI Prophylaxis: Pepcid Prognosis is guarded
[2021-05-17] MEDS ORDERED: THIAMINE 100 MG/ML 2 ML VIAL IM STA (10:27)
--- NOTE | 2021-05-17 10:38 | CT ---
EXAMINATION TYPE: CT brain wo con DATE OF EXAM: 05/17/2021 HISTORY: Fall and dizziness CT DLP: 1142.4 mGycm. Automated Exposure Control for Dose Reduction was Utilized. TECHNIQUE: CT scan of the head is performed without contrast. COMPARISON: CT brain March 31, 2021. FINDINGS: There is no acute intracranial hemorrhage or midline shift identified. There is mild to m oderate diffuse ventricular and sulcal prominence consistent with diffuse age-related cerebral atroph y. There is mild to moderate low-attenuation in the periventricular white matter consistent with chr onic small vessel ischemic change. The calvarium is intact. The globes are intact and the visualized sinuses are clear. Vascular calcifications distal internal carotid arteries bilaterally is present. IMPRESSION: No acute intracranial hemorrhage or midline shift. There is mild to moderate diffuse ag e-related cerebral atrophy and chronic small vessel ischemic change redemonstrated. No significant c hange from prior study.
[2021-05-17] MEDS: SYMBICORT 160-4.5 MCG INHALER INHALATION SCH ×2 (10:53→20:57)
[2021-05-17] MEDS: THIAMINE 100 MG TAB PO SCH (11:08)
[2021-05-17 11:49] LABS: Basophils % (A) 0 %; Eosinophils % (A) 0 %; HCT 44.4 % (39.0-53.0); HGB 15.1 gm/dL (13.0-17.5); Lymphocytes # (A) 0.5 k/uL (1.0-4.8); Lymphocytes % (A) 7 %; MCH 36.3 pg (25.0-35.0); MCV 106.7 fL (80.0-100.0); Macrocytosis Moderate; Mean Platelet Volume 7.4; Monocytes # (A) 0.2 k/uL (0-1.0); Monocytes % (A) 4 %; Neutrophils # (A) 5.4 k/uL (1.3-7.7); Neutrophils % (A) 87 %; Platelet Count 208 k/uL (150-450); RBC 4.16 m/uL (4.30-5.90); WBC 6.2 k/uL (3.8-10.6)
[2021-05-17 12:03] LABS: African American GFR (CKD) >90 (>60 ml/min/1.73 sqM); Anion Gap 6 mmol/L; Blood Urea Nitrogen 7 mg/dL (9-20); Calcium 8.9 mg/dL (8.4-10.2); Carbon Dioxide 25 mmol/L (22-30); Chloride 97 mmol/L (98-107); Glucose 85 mg/dL (74-99); Non-African American GFR(CKD) >90 (>60 ml/min/1.73 sqM); Sodium 128 mmol/L (137-145)
[2021-05-17] MEDS: SODIUM CHLORIDE 0.9% 1,000 ML IV SCH (13:00)
--- NOTE | 2021-05-17 14:01 | P.CRDCN ---
History of Present Illness History of present illness: HISTORY OF PRESENTING ILLNESS This is a pleasant 65-year-old male past medical history significant for daily nicotine and alcohol dependence. He does not follow regularly in our office. We have been asked to see in consultation for chest pain. He presented to the hospital with symptoms of shortness of breath that have been ongoing and getting progressively worse since he fell in February and had a pneumothorax. He is seen and examined laying flat in the ER in no acute distress. He complains of being short of breath with dizziness. He states his dizziness is mostly constant but is worse with position changes. He denies chest pain or palpitations. His history in the computer indicates he has cardiomyopathy however, he denies this and there is no prior echo to review. DIAGNOSTICS EKG reveals sinus mechanism, right axis deviation, incomplete right bundle branch block and poor R-wave progression. Chest xray reveals COPD with no acute process. Laboratory reviewed, WBC 6.2, hemoglobin 15.1, platelets 208, d-dimer 0.36, sodium 128, potassium 4.0, creatinine 0.55, magnesium 2.1, cardiac enzymes negative x3 and NTproBNP 805. Current cardiac medications include lisinopril 10 mg daily and lopressor 12.5 mg BID. REVIEW OF SYSTEMS At the time of my exam: CONSTITUTIONAL: Denies fever or chills. CARDIOVASCULAR: Complains of shortness of breath. Denies chest pain, orthopnea, PND or palpitations. RESPIRATORY: Denies cough. GASTROINTESTINAL: Denies abdominal pain, diarrhea, constipation, nausea or vomiting. MUSCULOSKELETAL: Denies myalgias. NEUROLOGIC: Complains of dizziness. Denies numbness, tingling, headache or weakness. ENDOCRINE: Denies fatigue, weight change, polydipsia or polyurina. GENITOURINARY: Denies burning, hematuria or urgency with micturation. HEMATOLOGIC: Denies history of anemia or bleeding. PHYSICAL EXAMINATION Blood pressure 126/81 heart rate 70 afebrile and maintaining oxygen saturation on room air. CONSTITUTIONAL: No apparent distress. Frail. HEENT: Head is normocephalic. Pupils are equal, round. Sclerae anicteric. Mucous membranes of the mouth are moist. No JVD. No carotid bruit. CHEST EXAMINATION: Lungs are clear to auscultation. No chest wall tenderness is noted on palpation or with deep breathing. HEART EXAMINATION: Regular rate and rhythm. S1, S2 heard. No murmurs, gallops or rub. ABDOMEN: Soft, nontender. EXTREMITIES: 2+ peripheral pulses, no lower extremity edema and no calf tenderness. NEUROLOGIC EXAMINATION: Patient is awake, alert and oriented x3. ASSESSMENT Shortness of breath of unknown etiology Hyponatremia Alcohol abuse Chronic nicotine dependence Frail PLAN An acute coronary event has been ruled out. Symptoms not likely to be related to heart failure with a clear chest xray, normal BNP and the patient ability to lay flat in bed. Clinically he is euvolemic. We will request an echo to assess wall motion and try to confirm if he in fact has cardiomyopathy. Ongoing medical management. Thank you kindly for this consultation. Nurse Practitioner note has been reviewed, I agree with a documented findings and plan of care. Patient was seen and examined. 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 CARDIOMYOPATHY. VARICOSE VEINS. CHRONIC BACK PAIN, DIFFICULTY WALKING DISTANCE OR SITTING, DRY MOUTH. broken ribs from fall History of Any Multi-Drug Resistant Organisms: None Reported Past Surgical History: Back Surgery, Heart Catheterization Additional Past Surgical History / Comment(s): COLONOSCOPY. PAIN CLINIC PROC'S, BACK SURGERY AT [facility] IN [place]. Removed all teeth 2020 Past Anesthesia/Blood Transfusion Reactions: Previous Problems w/ Anesthesia Additional Past Anesthesia/Blood Transfusion Reaction / Comment(s): WITH 2 PAIN PROC WAS AWAKE, PROCEDURE VERY PAINFUL Past Psychological History: No Psychological Hx Reported Smoking Status: Current every day smoker Past Alcohol Use History: Heavy Past Drug Use History: None Reported - Past Family History Father Family Medical History: Cancer Additional Family Medical History / Comment(s): Father from colon cancer Mother History Unknown: Yes Family Medical History: No Reported History Additional Family Medical History / Comment(s): Mother , not sure of cause Medications and Allergies Home Medications Medication Instructions Recorded Confirmed Type Metoprolol Tartrate [Lopressor] 12.5 mg PO BID 01/29/14 05/16/21 History Gabapentin [Neurontin] 600 mg PO TID 02/18/20 05/16/21 History Acetaminophen-Codeine 300-30mg 1 tab PO Q8H PRN 30 Days #90 tablet 01/11/21 05/16/21 Rx [Tylenol w/codeine #3] Folic Acid 1 mg PO DAILY@1200 #30 tab 03/23/21 05/16/21 Rx lisinopriL [Zestril] 10 mg PO HS #0 03/23/21 05/16/21 Rx Multivitamins, Thera [Multivitamin 1 tab PO DAILY 05/16/21 05/16/21 History (formulary)] Thiamine [Vitamin B-1] 100 mg PO AC-BID 05/16/21 05/16/21 History Allergies Allergy/AdvReac Type Severity Reaction Status Date / Time No Known Allergies Allergy Verified 03/31/21 14:05 Physical Exam Vitals: Vital Signs Temp Pulse Pulse Pulse Pulse Resp BP 05/17/21 10:25 79 81 73 05/17/21 08:04 73 20 144/80 05/17/21 05:17 97.6 F 67 18 147/89 05/16/21 23:53 97.4 F L 57 L 16 131/88 05/16/21 20:49 22 05/16/21 20:43 97.7 F 74 20 123/99 BP BP BP Pulse Ox 05/17/21 10:25 134/97 109/81 147/98 05/17/21 08:04 100 05/17/21 05:17 97 05/16/21 23:53 100 05/16/21 20:49 05/16/21 20:43 96 Intake and Output 05/16/21 05/17/21 05/17/21 22:59 06:59 14:59 Other: Weight 48.534 kg Results 05/17/21 11:25 05/17/21 11:25 Cardiac Enzymes 05/16/21 05/16/21 05/16/21 Range/Units 21:17 21:17 23:34 AST 27 (17-59) U/L Troponin I <0.012 <0.012 (0.000-0.034) ng/mL 05/17/21 Range/Units 03:47 AST (17-59) U/L Troponin I <0.012 (0.000-0.034) ng/mL Coagulation 05/16/21 Range/Units 21:17 PT 10.8 (9.0-12.0) sec APTT 26.8 (22.0-30.0) sec CBC 05/16/21 Range/Units 21:17 WBC 6.8 (3.8-10.6) k/uL RBC 4.02 L (4.30-5.90) m/uL Hgb 14.5 (13.0-17.5) gm/dL Hct 42.1 (39.0-53.0) % Plt Count 207 (150-450) k/uL Comprehensive Metabolic Panel 05/16/21 Range/Units 21:17 Sodium 127 L (137-145) mmol/L Potassium 3.7 (3.5-5.1) mmol/L Chloride 97 L (98-107) mmol/L Carbon Dioxide 24 (22-30) mmol/L BUN 8 L (9-20) mg/dL Creatinine 0.49 L (0.66-1.25) mg/dL Glucose 112 H (74-99) mg/dL Calcium 9.1 (8.4-10.2) mg/dL AST 27 (17-59) U/L ALT 16 (4-49) U/L Alkaline Phosphatase 90 (38-126) U/L Total Protein 6.1 L (6.3-8.2) g/dL Albumin 3.4 L (3.5-5.0) g/dL Current Medications Generic Name Dose Route Start Last Admin Trade Name Freq PRN Reason Stop Dose Admin Albuterol/Ipratropium 3 ml 05/17/21 10:09 Ipratropium-Albuterol 3 Ml Neb INHALATION RT-QID PRN Shortness Of Breath Or Wheezing Budesonide/Formoterol Fumarate 2 puff 05/17/21 10:05 05/17/21 10:53 Symbicort 160-4.5 Mcg Inhaler INHALATION 2 puff RT-BID MILDRED Administration Famotidine 20 mg 05/17/21 21:00 Famotidine 20 Mg/2 Ml Vial IV Q12HR MILDRED Heparin Sodium (Porcine) 5,000 unit 05/17/21 10:11 Heparin Sodium,Porcine/Pf 5,000 Unit/0.5 Ml Syringe SQ Q12HR MILDRED Sodium Chloride 1,000 mls @ 75 mls/hr 05/16/21 23:30 05/16/21 23:51 Saline 0.9% IV 75 mls/hr .[id number] MILDRED Administration Lorazepam 1 mg 05/16/21 23:24 05/17/21 09:29 Lorazepam 2 Mg/Ml Inj IV 1 mg Q6HR PRN Administration Anxiety Lorazepam 1 mg 05/17/21 10:27 05/17/21 11:09 Lorazepam 2 Mg/Ml Inj IV 1 mg Q2HR PRN Administration CIWA 8 or 9 Lorazepam 2 mg 05/17/21 10:27 Lorazepam 2 Mg/Ml Inj IV 05/19/21 10:27 Q10M PRN CIWA 16 or higher Naloxone HCl 0.2 mg 05/16/21 23:24 Naloxone 0.4 Mg/Ml 1 Ml Vial IV Q2M PRN Opioid Reversal Ondansetron HCl 4 mg 05/16/21 23:24 Ondansetron 4 Mg/2 Ml Vial IVP Q8HR PRN Nausea And Vomiting Ropinirole HCl 0.75 mg 05/17/21 21:00 Ropinirole Hcl 0.25 Mg Tab PO HS MILDRED Thiamine HCl 100 mg 05/17/21 10:15 Thiamine 100 Mg/Ml 2 Ml Vial IVP DAILY MILDRED Thiamine HCl 100 mg 05/17/21 17:30 05/17/21 11:08 Thiamine 100 Mg Tab PO Not Given BID-W/MEALS MILDRED Intake and Output 05/16/21 05/17/21 05/17/21 22:59 06:59 14:59 Other: Weight 48.534 kg 05/16/21 21:17 05/16/21 21:17
[2021-05-17] MEDS: HEPARIN SODIUM,PORCINE/PF 5,000 UNIT/0.5 ML SYRINGE SQ SCH ×3 (14:07→19:56)
[2021-05-17] MEDS: THIAMINE 100 MG/ML 2 ML VIAL IVP SCH (14:08)
[2021-05-17] MEDS: FAMOTIDINE 20 MG/2 ML VIAL IV SCH (19:55)
[2021-05-17] MEDS ORDERED: HEPARIN SODIUM,PORCINE/PF 5,000 UNIT/0.5 ML SYRINGE SQ SCH (21:00)
[2021-05-17] MEDS ORDERED: HALOPERIDOL LACTATE 5 MG/ML 1 ML VIAL IVP STA (22:41)
[2021-05-17] MEDS ORDERED: HALOPERIDOL LACTATE 5 MG/ML 1 ML VIAL IVP PRN (22:42)
[2021-05-18] MEDS: SODIUM CHLORIDE 0.9% 1,000 ML IV SCH ×2 (00:18→16:18)
[2021-05-18] MEDS: LORazepam 2 MG/ML INJ IV PRN ×8 (01:24→20:23)
[2021-05-18] MEDS: THIAMINE 100 MG TAB PO SCH ×2 (05:40→16:11)
[2021-05-18] MEDS: HALOPERIDOL LACTATE 5 MG/ML 1 ML VIAL IVP PRN ×2 (05:47→17:52)
[2021-05-18] MEDS: SYMBICORT 160-4.5 MCG INHALER INHALATION SCH ×2 (08:33→21:03)
--- NOTE | 2021-05-18 08:42 | P.CNNES ---
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 History is obtained from medical record. Per the primary team's note it is stated that the patient has been having dyspnea with some cough that's brownish yellowish phlegm for the last 3 weeks and that's got worse the day prior to presentation. Patient is also having headache for last 3 weeks that is noted in the primary team's note that. He is also feeling very dizzy and shortness of breath. Currently he denies of any headache. She smokes half a pack a day and he drinks about 3-4 beers a day. He denies any illicit drug use that is noted at in the ED note. Patient did acknowledge that he drinks 3-4 beers daily. Of note patient follows up at the [facility]. Patient on medication consist of lesser felt 10 mg, thiamine 100 mg without twice a day, multivitamins, metoprolol, gabapentin 600 mg 1 tablet 3 times a day, folic acid 1 mg daily. In the hospital stay the patient has been getting Ativan per CIWA protocol and is on Haldol for agitation and per his nurse he remains agitated. Overnight he did not sleep most of the night and was throwing punches to staff members but today in the AM he is more calm and responding. No seizure-like activity is noted. Some of the workup in the hospital consisted of: Initial vital signs his blood pressure of 123/99, heart rate of 74, respiratory of 20, temperature of 97.7 Fahrenheit oral and pulse ox of 96% room air. Since the patient has been our facility the patient has been afebrile. CBC with differential is initial white blood cells 6.8 thousand and the repeat his 6.2 thousand which is considered within normal limits. The MCV is 104 and the repeat his 106 which is elevated. Patient chemistry panel is initial sodium is 120 at 7 and the repeat his 128 which is low. Otherwise his serum glucose was 112, creatinine is 0.49, AST of 27, ALP of 16, calcium is 9.1, magnesium 2.1 which is considered within normal limits. Serum alcohol level is less than 10. CT of the head is reported as no acute intracranial hemorrhage or midline shift. There is mild to moderate diffuse age related cerebral atrophy and chronic small vessel ischemic changes redemonstrated. No significant change from prior study. Review of Systems Review of system is limited because of his condition but the parent positive and negative as per HPI. 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 CARDIOMYOPATHY. VARICOSE VEINS. CHRONIC BACK PAIN, DIFFICULTY WALKING DISTANCE OR SITTING, DRY MOUTH. broken ribs from fall History of Any Multi-Drug Resistant Organisms: None Reported Past Surgical History: Back Surgery, Heart Catheterization Additional Past Surgical History / Comment(s): COLONOSCOPY. PAIN CLINIC PROC'S, BACK SURGERY AT [facility] IN [place]. Removed all teeth 2020 Past Anesthesia/Blood Transfusion Reactions: Previous Problems w/ Anesthesia Additional Past Anesthesia/Blood Transfusion Reaction / Comment(s): WITH 2 PAIN PROC WAS AWAKE, PROCEDURE VERY PAINFUL Past Psychological History: No Psychological Hx Reported Smoking Status: Current every day smoker Past Alcohol Use History: Heavy Past Drug Use History: None Reported - Past Family History Father Family Medical History: Cancer Additional Family Medical History / Comment(s): Father from colon cancer Mother History Unknown: Yes Family Medical History: No Reported History Additional Family Medical History / Comment(s): Mother , not sure of cause Medications and Allergies Home Medications Medication Instructions Recorded Confirmed Type Metoprolol Tartrate [Lopressor] 12.5 mg PO BID 01/29/14 05/16/21 History Gabapentin [Neurontin] 600 mg PO TID 02/18/20 05/16/21 History Acetaminophen-Codeine 300-30mg 1 tab PO Q8H PRN 30 Days #90 tablet 01/11/21 05/16/21 Rx [Tylenol w/codeine #3] Folic Acid 1 mg PO DAILY@1200 #30 tab 03/23/21 05/16/21 Rx lisinopriL [Zestril] 10 mg PO HS #0 03/23/21 05/16/21 Rx Multivitamins, Thera [Multivitamin 1 tab PO DAILY 05/16/21 05/16/21 History (formulary)] Thiamine [Vitamin B-1] 100 mg PO AC-BID 05/16/21 05/16/21 History Allergies Allergy/AdvReac Type Severity Reaction Status Date / Time No Known Allergies Allergy Verified 03/31/21 14:05 Physical Examination - Vital Signs Vital Signs: Vital Signs Temp Pulse Pulse Pulse Pulse Pulse Resp 05/18/21 04:00 97.6 F 82 16 05/17/21 23:01 98.6 F 72 16 05/17/21 20:00 97.8 F 75 18 05/17/21 16:00 76 20 05/17/21 14:00 84 05/17/21 11:50 70 18 05/17/21 10:25 79 81 73 05/17/21 08:04 73 20 BP BP BP BP Pulse Ox 05/18/21 04:00 161/72 98 05/17/21 23:01 165/89 97 05/17/21 20:00 126/83 98 05/17/21 16:00 123/76 94 L 05/17/21 14:00 05/17/21 11:50 126/81 94 L 05/17/21 10:25 134/97 109/81 147/98 05/17/21 08:04 144/80 100 Intake and Output 05/17/21 05/18/21 05/18/21 22:59 06:59 14:59 Intake Total 120 Output Total 50 620 Balance 70 -620 Intake: Oral 120 Output: Urine 50 620 Other: Weight 58 kg GENERAL: The patient is a cachectic 65-year-old gentleman that seems older than his age, lying in bed and is not in acute distress. HENT: Has bruise on the central region of head (likely from prior fall). CHEST: The heart rate is regular rate rhythm. No murmurs to auscultation. No carotid bruit bilaterally. LUNG: Clear to auscultation bilaterally no wheezing noted throughout. Not labored breathing. ABDOMEN/GI: Bowel sounds present in all 4 quadrants. No tenderness to palpation throughout. NEUROLOGICAL: Higher mental function: The patient is slightly drowsy, oriented to self. He stated the year is 2021 but could not tell me month and he stated he was at home. He was able to tell he was in [facility] and correctly stated the capital of [place]. He was able to name objects correctly (pen, watch and newspaper). Patient is following simple commands. No aphasia and no neglect. Cranial nerves: The pupils are round, equal and reactive to light. Visual price are full to confrontation throughout. Extraocular movement is intact no nystagmus is noted. Facial sensation is normal to touch throughout. The facial strength is normal throughout. Hearing is mildly to moderately decreased bilaterally to hand rub. Tongue is midline and moved [id number] without any difficulty. Mild dysarthria is noted (has no teeth and not wearing dentures). Shoulder shrug is normal bilaterally. Motor: Gait is deferred. The strength is moving all extremities above gravity without focality. Normal tone. Is cachectic. Cerebellum: Normal finger to nose heel to brooks bilaterally. Sensation: Sensation is normal to touch throughout. Reflexes (right/left): 2+ throughout except brachioradialis and ankles are 1+. Plantars are downgoing bilaterally. Results Chest x-rays reported COPD. There is clearing of the soft tissue area compared to old exam. No acute lung disease. Urinalysis is negative for urinary tract infection. - Laboratory Findings CBC and BMP: 05/17/21 11:25 05/17/21 11:25 Abnormal Lab Findings: Abnormal Labs 05/16/21 05/16/21 05/16/21 21:17 21:17 21:17 RBC 4.02 L MCV 104.6 H MCH 36.0 H Lymphocytes # 0.5 L Sodium 127 L Chloride 97 L BUN 8 L Creatinine 0.49 L Glucose 112 H Total Protein 6.1 L Albumin 3.4 L Urine Protein Trace H 05/17/21 05/17/21 11:25 11:25 RBC 4.16 L MCV 106.7 H MCH 36.3 H Lymphocytes # 0.5 L Sodium 128 L Chloride 97 L BUN 7 L Creatinine 0.55 L Glucose Total Protein Albumin Urine Protein Assessment and Plan Assessment: Encephalopathy seems metabolic (hyponatremia likely due to chronic alcohol use) and component alcohol withdrawl and medication effect (Ativan). Rule out central process especially with history of epiglottis cancer. Delerium with pyschosis due to above Hyponatremia (likely due to alcohol use). Presented with Na 127 and currently 128 (in 03/20 was 120). Macrocytosis likely due to alcohol use Chronic alcohol use and is on CIWA protocol History of epiglottis cancer in 2019 status post radiation therapy (also in 2019) chronic lower back pain with difficulty walking for distance Heart failure History of hypertension Nicotine use Plan: I ordered a routine EEG. I will not start the patient on antiepileptic drugs unless there is epileptiform discharges or seizure on EEG. Ordered MRI of the brain with and without gadolinium to rule out any brain metastases or any structural lesions. Hemoglobin A1c, TSH and folate level are ordered by the primary team is pending. I ordered vitamin B12 level. Currently the patient is on thiamine 100 mg 1 tablet twice a day. I started the patient on Folic acid 1mg daily. 2-D echo was ordered by the primary team is pending Patient's currently getting Ativan for CIWA protocol and will defer management to the primary team. PT and OT are consulted. Cardiology is consulted for the shortness of breath and chest pain. We'll defer the rest of the medical measure the primary team. The plan is discussed with the patient's nurse. Thank you for the consultation. Jayden Cunningham M.D. Neuro-hospitalist Time with Patient: Greater than 30
--- NOTE | 2021-05-18 10:00 | ECHOF ---
Referral Reason:Rule out heart disease MEASUREMENTS -------- HEIGHT: 175.3 cm WEIGHT: 48.5 kg BP: RVIDd: 2.4 cm (< 3.3) IVSd: 0.7 cm (0.6 - 1.1) LVIDd: 4.0 cm (3.9 - 5.3) LVPWd: 1.0 cm (0.6 - 1.1) IVSs: 1.4 cm LVIDs: 2.2 cm LVPWs: 1.3 cm LA Diam: 3.4 cm (2.7 - 3.8) Ao Diam: 3.3 cm (2.0 - 3.7) AV Cusp: 1.7 cm (1.5 - 2.6) MV EXCURSION: 19.436 mm (> 18.000) MV EF SLOPE: 70 mm/s (70 - 150) EPSS: 0.3 cm MV E Jose: 0.39 m/s MV DecT: 254 ms MV A Jose: 0.74 m/s MV E/A Ratio: 0.53 RAP: 5.00 mmHg RVSP: 42.36 mmHg FINDINGS -------- Sinus rhythm. This was a technically adequate study. The left ventricular size is normal. Left ventricular wall thickness is normal. Overall left vent ricular systolic function is low-normal with, an EF between 50 - 55 %.Difficult studywith suboptimal views. However, overall left ankle function appears to be fair The right ventricle is normal in size. The left atrial size is normal. The right atrial size is normal. There is mild aortic valve sclerosis. Mild mitral regurgitation is present. Mild tricuspid regurgitation present. There is mild pulmonary hypertension. The right ventricular systolic pressure, as measured by Doppler, is 42.36mmHg. There is no pulmonic regurgitation present. Echo free space represents a pericardial fat pad. CONCLUSIONS -------- 1. The left ventricular size is normal. 2. Left ventricular wall thickness is normal. 3. Overall left ventricular systolic function is low-normal with, an EF between 50 - 55 %. 4. The right ventricle is normal in size. 5. The left atrial size is normal. 6. The right atrial size is normal. 7. There is mild aortic valve sclerosis. 8. Mild mitral regurgitation is present. 9. Mild tricuspid regurgitation present. 10. There is mild pulmonary hypertension. 11. The right ventricular systolic pressure, as measured by Doppler, is 42.36mmHg. 12. Echo free space represents a pericardial fat pad. HUMAN RESOURCES HR REPRESENTATIVE: Michelle Fitch RDCS
[2021-05-18 10:12] LABS: ALT 20 U/L (4-49); AST 32 U/L (17-59); African American GFR (CKD) >90 (>60 ml/min/1.73 sqM); Albumin 3.9 g/dL (3.5-5.0); Alkaline Phosphatase 90 U/L (38-126); Anion Gap 8 mmol/L; Bilirubin, Delta 0.1 mg/dL (0.0-0.2); Bilirubin,Unconjugated 0.5 mg/dL (0.0-1.1); Blood Urea Nitrogen 4 mg/dL (9-20); Calcium 9.2 mg/dL (8.4-10.2); Carbon Dioxide 24 mmol/L (22-30); Chloride 95 mmol/L (98-107); Glucose 90 mg/dL (74-99); Magnesium 1.9 mg/dL (1.6-2.3); Non-African American GFR(CKD) >90 (>60 ml/min/1.73 sqM); Potassium 3.3 mmol/L (3.5-5.1); Sodium 127 mmol/L (137-145); Total Bilirubin 0.6 mg/dL (0.2-1.3); Total Protein 6.5 g/dL (6.3-8.2)
[2021-05-18] MEDS: FOLIC ACID 1 MG TAB PO SCH (10:44)
[2021-05-18] MEDS: FAMOTIDINE 20 MG/2 ML VIAL IV SCH ×2 (10:45→21:29)
[2021-05-18] MEDS: THIAMINE 100 MG/ML 2 ML VIAL IVP SCH (10:45)
[2021-05-18] MEDS: HEPARIN SODIUM,PORCINE/PF 5,000 UNIT/0.5 ML SYRINGE SQ SCH ×2 (10:46→21:29)
[2021-05-18] MEDS: METOPROLOL TARTRATE 25 MG TAB PO SCH ×2 (10:48→21:19)
[2021-05-18 11:13] LABS: Basophils % (A) 1 %; Eosinophils % (A) 1 %; HCT 44.4 % (39.0-53.0); HGB 14.9 gm/dL (13.0-17.5); Lymphocytes # (A) 0.4 k/uL (1.0-4.8); Lymphocytes % (A) 5 %; MCH 35.8 pg (25.0-35.0); MCHC 33.7 g/dL (31.0-37.0); MCV 106.3 fL (80.0-100.0); Macrocytosis Moderate; Mean Platelet Volume 8.7; Monocytes # (A) 0.4 k/uL (0-1.0); Monocytes % (A) 6 %; Neutrophils # (A) 6.9 k/uL (1.3-7.7); Neutrophils % (A) 88 %; Platelet Count 190 k/uL (150-450); RBC 4.18 m/uL (4.30-5.90); RDW 13.2 % (11.5-15.5); WBC 7.9 k/uL (3.8-10.6)
--- NOTE | 2021-05-18 11:48 | P.PN ---
Subjective HISTORY OF PRESENTING ILLNESS This is a pleasant 65-year-old male past medical history significant for daily nicotine and alcohol dependence. He does not follow regularly in our office. We have been asked to see in consultation for chest pain. He presented to the hospital with symptoms of shortness of breath that have been ongoing and getting progressively worse since he fell in February and had a pneumothorax. He is seen and examined laying flat in the ER in no acute distress. He complains of being short of breath with dizziness. He states his dizziness is mostly constant but is worse with position changes. He denies chest pain or palpitations. His history in the computer indicates he has cardiomyopathy however, he denies this and there is no prior echo to review. 05/18/2021 Pt seen and examined laying flat in bed about to undergo an EEG. He is slow to respond but denies chest pain, shortness of breath, dizziness or palpitations. Blood pressure 154/85 heart rate 68 afebrile and maintaining oxygen saturation on nasal cannula. Laboratory data reviewed, WBC 7.9, hgb 14.9, plt 190, sodium 127, potassium 3.3, creatinine 0.47, TSH 1.83. Echocardiogram reveals preserved LV systolic function with ejection fraction 50-55%. PHYSICAL EXAMINATION CONSTITUTIONAL: No apparent distress. Frail. HEENT: Head is normocephalic. Pupils are equal, round. Sclerae anicteric. Mucous membranes of the mouth are moist. No JVD. No carotid bruit. CHEST EXAMINATION: Lungs are clear to auscultation. No chest wall tenderness is noted on palpation or with deep breathing. HEART EXAMINATION: Regular rate and rhythm. S1, S2 heard. No murmurs, gallops or rub. EXTREMITIES: 2+ peripheral pulses, no lower extremity edema and no calf tenderness. ASSESSMENT Shortness of breath of unknown etiology Hyponatremia Alcohol abuse Chronic nicotine dependence Frail PLAN No evidence to suggest heart failure. Add metoprolol 25 mg twice a day for blood pressure control. Ongoing medical management. Nurse Practitioner note has been reviewed, I agree with a documented findings and plan of care. Patient was seen and examined. Objective - Vital Signs Vital signs: Vital Signs Temp 97.6 F 05/18/21 04:00 Pulse 82 05/18/21 04:00 Resp 16 05/18/21 04:00 BP 161/72 05/18/21 04:00 Pulse Ox 98 05/18/21 04:00 Intake & Output 05/17/21 05/18/21 05/18/21 18:59 06:59 18:59 Intake Total 120 100 Output Total 0 670 Balance 120 -670 100 Weight 48.534 kg 58 kg Intake: Oral 120 100 Output: Urine 670 Stool 0 - Labs CBC & Chem 7: 05/18/21 09:13 05/18/21 09:13 Labs: Abnormal Lab Results - Last 24 Hours (Table) 05/17/21 05/17/21 Range/Units 11:25 11:25 RBC 4.16 L (4.30-5.90) m/uL MCV 106.7 H (80.0-100.0) fL MCH 36.3 H (25.0-35.0) pg Lymphocytes # 0.5 L (1.0-4.8) k/uL Sodium 128 L (137-145) mmol/L Chloride 97 L (98-107) mmol/L BUN 7 L (9-20) mg/dL Creatinine 0.55 L (0.66-1.25) mg/dL
[2021-05-18 14:29] VITALS: BMI 18.8
[2021-05-18] MEDS ORDERED: Potassium Replacement Protocol 1 EACH MISC MISCELLANE PRN (15:10)
[2021-05-18] MEDS ORDERED: Magnesium Replacement Protocol 1 EACH MISC MISCELLANE PRN (15:10)
[2021-05-18] MEDS ORDERED: MAGNESIUM SULFATE-D5W PMX 1 GM in DEXTROSE/WATER 1 100ML.BAG IVPB ONE (15:10)
--- NOTE | 2021-05-18 15:12 | P.PN ---
Subjective This is a pleasant 65 years old male with past medical history of heart failure, hypertension, 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 Chronic back pain with difficulty walking for distance. [facility] presents because of dyspnea for 2 days duration associated with some chest tightness. Patient states that since his been having dyspnea with some cough and brown/yellow phlegm for the last 3 weeks however it got really worse yesterday and his told him he has to go to the hospital. No significant chest pain, he has some mild chest pain in the middle yesterday which is resolved. Also patient complains from exertional dyspnea and dizziness, where he goes to the restroom/kitchen he got dizzy and short of breath and he has to sit down. About 3 weeks ago and hit his head. But after that he states he is been all right. Denies any abdominal pain, no nausea vomiting,. No urgency in his urine, no dysuria. No headache. No weakness or numbness. No blurred vision or slurred speech. He smokes about half pack per day, patient is counseled to quit and he states is hard for him to quit, also he declined nicotine patch. He drinks 3-4 beers per day. He denies illicit drugsHe complains from legs are restless and he got 1 dose of Ativan in the emergency room and he feels better. Patient was noticed to stand up next to his bed by ER staff. Patient is afebrile, Vitas looks stable, labs including CBC, BMP and liver enzymes are unremarkable except for low sodium of 127. Troponin 3 are negative less than 0.012. Lipase normal at 157. Preoperative diagnosis is nonsuspicious of infection. Serum alcohol less than 10 EKG showing normal sinus rhythm at 71 with right bundle-branch block, incomplete and right ventricular hypertrophy Chest x-ray COPD, In the emergency room he was given Ativan, Zofran 1 and normal saline at 75 mL/h Patient was admitted with trim setter helper evaluation. 05/18/2021 patient today is more confused and agitated and he needs a sitter at bedside, patient has mittens He has high CIWA score 10-18. Patient receiving Ativan CIWA protocol. Add Valium. His chronic hyponatremia is mostly due to alcohol effect. Today sodium is 127. Replace potassium and magnesium per protocol Also he has some evidence of postural hypotension. Continue with IV fluids. S he is just a trim setter helper MRI of the brain is pending as well as B12 and hemoglobin A1c per neurology service. Continue with Ativan normal saline and Haldol as needed. Objective - Vital Signs Vital signs: Vital Signs Temp 98.0 F 05/18/21 12:00 Pulse 88 05/18/21 12:00 Resp 18 05/18/21 12:00 BP 157/69 05/18/21 12:00 Pulse Ox 97 05/18/21 12:00 Intake & Output 05/17/21 05/18/21 05/18/21 18:59 06:59 18:59 Intake Total 120 100 Output Total 0 670 Balance 120 -670 100 Weight 48.534 kg 58 kg 58 kg Intake: Oral 120 100 Output: Urine 670 Stool 0 Other: # Voids 200 - Labs CBC & Chem 7: 05/18/21 09:13 05/18/21 09:13 Labs: Abnormal Lab Results - Last 24 Hours (Table) 05/18/21 05/18/21 Range/Units 09:13 09:13 RBC 4.18 L (4.30-5.90) m/uL MCV 106.3 H (80.0-100.0) fL MCH 35.8 H (25.0-35.0) pg Lymphocytes # 0.4 L (1.0-4.8) k/uL Sodium 127 L (137-145) mmol/L Potassium 3.3 L (3.5-5.1) mmol/L Chloride 95 L (98-107) mmol/L BUN 4 L (9-20) mg/dL Creatinine 0.47 L (0.66-1.25) mg/dL Assessment and Plan Assessment: Metabolic and toxic encephalopathy secondary to alcohol and withdrawal Severe alcohol withdrawal with delirium tremens Dizziness fall about 3 weeks ago . 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 Chronic back pain with difficulty walking for distance. Plan: This is a pleasant 65 years old male who presents with SOB/chest tightness. Cardiology consult. Check echocardiogram. Continue with sitter at bedside. Continue with CIWA protocol. Valium Continue with IV hydration Follow-up Sodium level Follow-up MRI of the brain. Follow-up vitamin B12 and hemoglobin A1c Start Requip Labs and medication were reviewed.. Continue same treatment. Continue with symptomatic treatment. Resume home medication. Monitor lytes and vitals. DVT and GI prophylaxis. Further recommendations depends on the clinical course of the patient DVT prophylaxis: Subcutaneous heparin GI Prophylaxis: Pepcid Prognosis is guarded
--- NOTE | 2021-05-18 15:55 | EEG ---
ELECTROENCEPHALOGRAM REPORT DATE OF SERVICE: 05/18/2021. CLINICAL HISTORY: This is a 65-year-old gentleman with history of alcohol use who has altered mental status. The video EEG is obtained to evaluate for seizure epileptiform activity. Relevant medication is Ativan. EEG TYPE: A routine 21-channel EEG is performed with video using the 10/20 electrode placement system. DESCRIPTION: Wakefulness is only obtained. During wakefulness, there is a background of 7- 7.5 hertz activity that is nonrhythmic, poorly modulated, poorly sustained. There is no physiological sleep architecture seen. There is no focal slowing seen. There is mild to moderate diffuse myogenic artifact. There is excessive beta activity seen. Interictal and ictal are none. ACTIVATION PROCEDURE: Photic and hyperventilation are not performed. CLINICAL INTERPRETATION: This is an abnormal routine EEG. The background slowing is suggestive of mild encephalopathy. There are no focal slowing, epileptiform discharges or seizure on the EEG. The excessive beta activity is due to medication effect (Ativan). Clinical correlation is recommended. MMMARTELL / YAMILETN: [id number] / ADINA
--- NOTE | 2021-05-18 16:01 | MR ---
EXAMINATION TYPE: MR brain wo con DATE OF EXAM: 05/18/2021 COMPARISON: CT brain from yesterday and older CTs. HISTORY: Altered mental status, weakness, SOB. History of throat cancer. TECHNIQUE: Multiplanar, multisequence imaging of the brain and brainstem is performed without IV cont rast. IV contrast cannot be given due to patient noncooperation. FINDINGS: Suboptimal due to motion artifact aggregation. Diffusion weighted images demonstrate no convincing evidence of a recent infarct . There is mild ventricular and sulcal prominence. Scattered foci of T2 hyperintensity R seen throughou t the white matter bilaterally presumed on the basis of product of chronic small vessel ischemic pepper ge in patient of this age Midline structures redemonstrate normal morphology. The craniocervical junction appears within marcelino l limits. Normal vascular flow voids are present. The visualized portion of sinuses are clear. Global evaluation degraded by motion. IMPRESSION: Markedly suboptimal study. No convincing evidence for a recent infarct. Mild diffuse age- related cerebral atrophy and mild to moderate chronic small vessel ischemic changes are thought prese nt.
[2021-05-18 16:52] LABS: Folate, Serum >24.0 ng/mL
[2021-05-18] MEDS: POTASSIUM CHLORIDE ER 20 MEQ TAB.ER PO SCH ×2 (17:33→18:37)
[2021-05-18 18:16] LABS: Hemoglobin A1C 5.3 % (4.0-6.0)
[2021-05-18] MEDS: diazePAM 5 MG TAB PO SCH (20:23)
[2021-05-19] MEDS: HALOPERIDOL LACTATE 5 MG/ML 1 ML VIAL IVP PRN (01:48)
[2021-05-19] MEDS: SODIUM CHLORIDE 0.9% 1,000 ML IV SCH ×2 (04:13→20:52)
[2021-05-19] MEDS: THIAMINE 100 MG TAB PO SCH ×2 (06:03→17:10)
[2021-05-19] MEDS: SYMBICORT 160-4.5 MCG INHALER INHALATION SCH ×2 (07:09→16:33)
[2021-05-19 07:57] LABS: Basophils % (A) 0 %; Eosinophils % (A) 0 %; HCT 45.7 % (39.0-53.0); HGB 15.9 gm/dL (13.0-17.5); Lymphocytes # (A) 0.3 k/uL (1.0-4.8); Lymphocytes % (A) 3 %; MCH 36.1 pg (25.0-35.0); MCHC 34.9 g/dL (31.0-37.0); MCV 103.5 fL (80.0-100.0); Macrocytosis Slight; Monocytes # (A) 0.5 k/uL (0-1.0); Monocytes % (A) 4 %; Neutrophils # (A) 11.8 k/uL (1.3-7.7); Neutrophils % (A) 93 %; Platelet Count 199 k/uL (150-450); RBC 4.41 m/uL (4.30-5.90); RDW 12.9 % (11.5-15.5); WBC 12.7 k/uL (3.8-10.6)
[2021-05-19 08:10] LABS: ALT 23 U/L (4-49); AST 34 U/L (17-59); African American GFR (CKD) >90 (>60 ml/min/1.73 sqM); Alkaline Phosphatase 116 U/L (38-126); Anion Gap 7 mmol/L; Blood Urea Nitrogen 4 mg/dL (9-20); Calcium 9.3 mg/dL (8.4-10.2); Carbon Dioxide 26 mmol/L (22-30); Chloride 93 mmol/L (98-107); Glucose 101 mg/dL (74-99); Magnesium 1.9 mg/dL (1.6-2.3); Non-African American GFR(CKD) >90 (>60 ml/min/1.73 sqM); Potassium 3.9 mmol/L (3.5-5.1); Sodium 126 mmol/L (137-145); Total Protein 6.6 g/dL (6.3-8.2)
[2021-05-19] MEDS: METOPROLOL TARTRATE 25 MG TAB PO SCH ×2 (08:44→20:52)
[2021-05-19] MEDS: diazePAM 5 MG TAB PO SCH ×2 (08:44→20:52)
[2021-05-19] MEDS: THIAMINE 100 MG/ML 2 ML VIAL IVP SCH (08:44)
[2021-05-19] MEDS: FOLIC ACID 1 MG TAB PO SCH (08:44)
[2021-05-19] MEDS: HEPARIN SODIUM,PORCINE/PF 5,000 UNIT/0.5 ML SYRINGE SQ SCH ×2 (08:45→20:51)
[2021-05-19] MEDS: FAMOTIDINE 20 MG/2 ML VIAL IV SCH ×2 (08:45→20:52)
--- NOTE | 2021-05-19 18:50 | P.PN ---
Subjective Progress Note Date: 05/19/21 Upon seeing the patient for the patient's the nurse and he is about the same. There is no seizure-like activity. Patient continues to be getting Ativan per [facility] protocol. Objective - Vital Signs Vital signs: Vital Signs Temp 98.5 F 05/19/21 16:00 Pulse 74 05/19/21 16:00 Resp 18 05/19/21 16:00 BP 126/80 05/19/21 16:00 Pulse Ox 100 05/19/21 16:00 Intake & Output 05/18/21 05/19/21 05/19/21 18:59 06:59 18:59 Intake Total 220 540 Output Total 550 Balance 220 -550 540 Weight 58 kg 55.5 kg Intake: Oral 220 540 Output: Urine 550 Other: # Voids 200 1 1 - Exam GENERAL: The patient is a cachectic 65-year-old gentleman that seems older than his age, lying in bed and is not in acute distress. NEUROLOGICAL: Higher mental function: The patient is slightly drowsy, oriented to self. He stated the year is 2021 but could not tell me month and he stated he was at home. He was able to tell he was in [facility] and correctly stated the capital of [place]. He was able to name objects correctly (pen, watch and newspaper ). Patient is following simple commands. No aphasia and no neglect. Cranial nerves: The pupils are round, equal and reactive to light. Visual price are full to confrontation throughout. Extraocular movement is intact no nystagmus is noted. Facial sensation is normal to touch throughout. The facial strength is normal throughout. Hearing is mildly to moderately decreased bilaterally to hand rub. Tongue is midline and moved [id number] without any difficulty. Mild dysarthria is noted (has no teeth and not wearing dentures). Shoulder shrug is normal bilaterally. Motor: Gait is deferred. The strength is moving all extremities above gravity without focality. Normal tone. Is cachectic. Cerebellum: Normal finger to nose heel to brooks bilaterally. Sensation: Sensation is normal to touch throughout. Reflexes (right/left): 2+ throughout except brachioradialis and ankles are 1+. Plantars are downgoing bilaterally. MRI the brain is reported as markedly suboptimal study. No come is evidence for a recent infarct. Mild diffuse age-related cerebral atrophy and mild to moderate chronic small vessel ischemic changes are thought present. EEG is abnormal. The background slowing suggestive of mild encephalopathy. There are no focal slowing, epileptiform discharges or seizure on the EEG. Excessive a beta activity is due to medication effect (Ativan). Vitamin B12 is 199, folate is more than 24, TSH is 1.83 which is concerned within normal limits. Hemoglobin A1c is 5.3. - Labs CBC & Chem 7: 05/19/21 07:28 05/19/21 07:28 Labs: Abnormal Lab Results - Last 24 Hours (Table) 05/19/21 05/19/21 Range/Units 07:28 07:28 WBC 12.7 H (3.8-10.6) k/uL MCV 103.5 H (80.0-100.0) fL MCH 36.1 H (25.0-35.0) pg Neutrophils # 11.8 H (1.3-7.7) k/uL Lymphocytes # 0.3 L (1.0-4.8) k/uL Sodium 126 L (137-145) mmol/L Chloride 93 L (98-107) mmol/L BUN 4 L (9-20) mg/dL Creatinine 0.47 L (0.66-1.25) mg/dL Glucose 101 H (74-99) mg/dL Assessment and Plan Assessment: Encephalopathy seems metabolic (hyponatremia likely due to chronic alcohol use) and component alcohol withdrawl and medication effect (Ativan). Rule out central process especially with history of epiglottis cancer. Delerium with pyschosis due to above Hyponatremia (likely due to alcohol use). Presented with Na 127 and currently 126 (in 03/20 was 120). 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 Continue Folic acid 1mg daily. Patient's currently getting Ativan for CIWA protocol and will defer management to the primary team. PT and OT are consulted. Cardiology is consulted for the shortness of breath and chest pain. We'll defer the rest of the medical measure the primary team. The plan is discussed with the patient's nurse. There is no further neurological work-up. Neurology will sign off. Please reconsult if needed. Jayden Cunningham M.D. Neuro-hospitalist Time with Patient: Less than 30
[2021-05-20] MEDS: LORazepam 2 MG/ML INJ IV PRN (02:51)
[2021-05-20] MEDS: SODIUM CHLORIDE 0.9% 1,000 ML IV SCH ×2 (06:38→22:56)
[2021-05-20] MEDS: THIAMINE 100 MG TAB PO SCH ×2 (06:38→16:39)
[2021-05-20] MEDS: SYMBICORT 160-4.5 MCG INHALER INHALATION SCH ×2 (08:37→19:14)
--- NOTE | 2021-05-20 10:10 | P.PN ---
Subjective Progress Note Date: 05/19/21 65 years old male with past medical history of heart failure, hypertension, 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 Chronic back pain with difficulty walking for distance. [facility] presents because of dyspnea for 2 days duration associated with some chest tightness. Patient states that since his been having dyspnea with some cough and brown/yellow phlegm for the last 3 weeks however it got really worse yesterday and his told him he has to go to the hospital. No significant chest pain, he has some mild chest pain in the middle yesterday which is res olved. Also patient complains from exertional dyspnea and dizziness, where he goes to the restroom/kitchen he got dizzy and short of breath and he has to sit down. About 3 weeks ago and hit his head. But after that he states he is been all right. Denies any abdominal pain, no nausea vomiting,. No urgency in his urine, no dysuria. No headache. No weakness or numbness. No blurred vision or slurred speech. He smokes about half pack per day, patient is counseled to quit and he states is hard for him to quit, also he declined nicotine patch. He drinks 3-4 beers per day. He denies illicit drugsHe complains from legs are restless and he got 1 dose of Ativan in the emergency room and he feels better. Patient was noticed to stand up next to his bed by ER staff. Patient is afebrile, Vitas looks stable, labs including CBC, BMP and liver enzymes are unremarkable except for low sodium of 127. Troponin 3 are negative less than 0.012. Lipase normal at 157. Preoperative diagnosis is nonsuspicious of infection. Serum alcohol less than 10 EKG showing normal sinus rhythm at 71 with right bundle-branch block, incomplete and right ventricular hypertrophy Chest x-ray COPD, In the emergency room he was given Ativan, Zofran 1 and normal saline at 75 mL/h Patient was admitted with support clerk evaluation. Objective - Vital Signs Vital signs: Vital Signs Temp 98.0 F 05/19/21 08:00 Pulse 75 05/19/21 08:00 Resp 18 05/19/21 08:00 BP 130/84 05/19/21 08:00 Pulse Ox 97 05/19/21 08:00 Intake & Output 0805/19/21 05/19/21 18:59 06:59 18:59 Intake Total 220 180 Output Total 550 Balance 220 -550 180 Weight 58 kg 55.5 kg Intake: Oral 220 180 Output: Urine 550 Other: # Voids 200 1 2 - Exam Blood pressure 126/81 heart rate 70 afebrile and maintaining oxygen saturation on room air. CONSTITUTIONAL: No apparent distress. Frail. HEENT: Head is normocephalic. Pupils are equal, round. Sclerae anicteric. Mucous membranes of the mouth are moist. No JVD. No carotid bruit. CHEST EXAMINATION: Lungs are clear to auscultation. No chest wall tenderness is noted on palpation or with deep breathing. HEART EXAMINATION: Regular rate and rhythm. S1, S2 heard. No murmurs, gallops or rub. ABDOMEN: Soft, nontender. EXTREMITIES: 2+ peripheral pulses, no lower extremity edema and no calf tenderness. NEUROLOGIC EXAMINATION: Patient is awake, alert and oriented x3. - Labs CBC & Chem 7: 05/19/21 07:28 05/19/21 07:28 Labs: Abnormal Lab Results - Last 24 Hours (Table) 05/19/21 05/19/21 Range/Units 07:28 07:28 WBC 12.7 H (3.8-10.6) k/uL MCV 103.5 H (80.0-100.0) fL MCH 36.1 H (25.0-35.0) pg Neutrophils # 11.8 H (1.3-7.7) k/uL Lymphocytes # 0.3 L (1.0-4.8) k/uL Sodium 126 L (137-145) mmol/L Chloride 93 L (98-107) mmol/L BUN 4 L (9-20) mg/dL Creatinine 0.47 L (0.66-1.25) mg/dL Glucose 101 H (74-99) mg/dL Assessment and Plan Assessment: Metabolic and toxic encephalopathy secondary to alcohol and withdrawal Severe alcohol withdrawal with delirium tremens Dizziness fall about 3 weeks ago . 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 Chronic back pain with difficulty walking for distance. Plan: This is a pleasant 65 years old male who presents with SOB/chest tightness. Cardiology consult. Check echocardiogram. Continue with sitter at bedside. Continue with CIWA protocol. Valium Continue with IV hydration Follow-up Sodium level Follow-up MRI of the brain. Follow-up vitamin B12 and hemoglobin A1c Start Requip Labs and medication were reviewed.. Continue same treatment. Continue with symptomatic treatment. Resume home medication. Monitor lytes and vitals. DVT and GI prophylaxis. Further recommendations depends on the clinical course of the patient DVT prophylaxis: Subcutaneous heparin GI Prophylaxis: Pepcid Prognosis is guarded
[2021-05-20] MEDS: diazePAM 5 MG TAB PO SCH (10:22)
[2021-05-20] MEDS: HEPARIN SODIUM,PORCINE/PF 5,000 UNIT/0.5 ML SYRINGE SQ SCH ×2 (10:22→21:08)
[2021-05-20] MEDS: FAMOTIDINE 20 MG/2 ML VIAL IV SCH ×2 (10:23→21:09)
[2021-05-20] MEDS: THIAMINE 100 MG/ML 2 ML VIAL IVP SCH (10:23)
[2021-05-20] MEDS: FOLIC ACID 1 MG TAB PO SCH (10:23)
[2021-05-20] MEDS: METOPROLOL TARTRATE 25 MG TAB PO SCH ×2 (10:23→21:09)
[2021-05-20] MEDS: SODIUM CHLORIDE TAB 1 GM TAB PO SCH ×2 (16:39→21:09)
[2021-05-20] MEDS: NYSTATIN 100,000 UNIT/ML SUSP 500,000 UNIT/5 ML CUP PO SCH ×2 (17:47→21:09)
--- NOTE | 2021-05-20 18:14 | P.PN ---
Subjective Progress Note Date: 05/20/21 65 years old male with past medical history of heart failure, hypertension, 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 Chronic back pain with difficulty walking for distance. [facility] Patient presents because of dyspnea for 2 days duration associated with some chest tightness. Patient states that since his been having dyspnea with some cough and brown/yellow phlegm for the last 3 weeks however it got really worse yesterday and his told him he has to go to the hospital. No significant chest pain, he has some mild chest pain in the middle yesterday which is res olved. Also patient complains from exertional dyspnea and dizziness, where he goes to the restroom/kitchen he got dizzy and short of breath and he has to sit down. About 3 weeks ago and hit his head. But after that he states he is been all right. Denies any abdominal pain, no nausea vomiting,. No urgency in his urine, no dysuria. No headache. No weakness or numbness. No blurred vision or slurred speech. He smokes about half pack per day, patient is counseled to quit and he states is hard for him to quit, also he declined nicotine patch. He drinks 3-4 beers per day. He denies illicit drugsHe complains from legs are restless and he got 1 dose of Ativan in the emergency room and he feels better. Patient was noticed to stand up next to his bed by ER staff. Patient is afebrile, Vitas looks stable, labs including CBC, BMP and liver enzymes are unremarkable except for low sodium of 127. Troponin 3 are negative less than 0.012. Lipase normal at 157. Preoperative diagnosis is nonsuspicious of infection. Serum alcohol less than 10 EKG showing normal sinus rhythm at 71 with right bundle-branch block, incomplete and right ventricular hypertrophy Chest x-ray COPD, In the emergency room he was given Ativan, Zofran 1 and normal saline at 75 mL/h Patient was admitted with passenger relations representative evaluation. 05/20/2021 Patient is seen and evaluated resting comfortably in bed; sitter present at bedside Vital signs are reviewed and stable- temperature 98.5, pulse 74, respiration 18 and blood pressure 136/84 Patient remains on IV Ativan per serial protocol; no further seizure activities noted; MRI-unremarkable; lab review shows a sodium of 126; we will start patient on sodium chloride tablet 1 twice a day and sodium levels closely; patient remains on normal saline at rate of 75 mL an hour; has been evaluated by physical therapy and is recommended skilled rehab Objective - Vital Signs Vital signs: Vital Signs Temp 98.5 F 05/20/21 08:00 Pulse 75 05/20/21 08:00 Resp 18 05/20/21 08:00 BP 154/83 05/20/21 08:00 Pulse Ox 100 05/20/21 08:00 Intake & Output 05/19/21 05/20/21 05/20/21 18:59 06:59 18:59 Intake Total 540 120 Output Total 200 Balance 540 -200 120 Weight 55 kg Intake: Oral 540 120 Output: Urine 200 Other: # Voids 1 1 - Exam Blood pressure 126/81 heart rate 70 afebrile and maintaining oxygen saturation on room air. CONSTITUTIONAL: No apparent distress. Frail. HEENT: Head is normocephalic. Pupils are equal, round. Sclerae anicteric. Mucous membranes of the mouth are moist. No JVD. No carotid bruit. CHEST EXAMINATION: Lungs are clear to auscultation. No chest wall tenderness is noted on palpation or with deep breathing. HEART EXAMINATION: Regular rate and rhythm. S1, S2 heard. No murmurs, gallops or rub. ABDOMEN: Soft, nontender. EXTREMITIES: 2+ peripheral pulses, no lower extremity edema and no calf tenderness. NEUROLOGIC EXAMINATION: Patient is awake, alert and oriented x3. - Labs CBC & Chem 7: 05/19/21 07:28 05/19/21 07:28 Assessment and Plan Assessment: Metabolic and toxic encephalopathy secondary to alcohol and withdrawal Severe alcohol withdrawal with delirium tremens Dizziness fall about 3 weeks ago . 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 Chronic back pain with difficulty walking for distance. Plan: This is a pleasant 65 years old male who presents with SOB/chest tightness. Cardiology consult. Check echocardiogram. Continue with sitter at bedside. Continue with CIWA protocol. Valium Continue with IV hydration Follow-up Sodium level Follow-up MRI of the brain. Follow-up vitamin B12 and hemoglobin A1c Start Requip Labs and medication were reviewed.. Continue same treatment. Continue with symptomatic treatment. Resume home medication. Monitor lytes and vitals. DVT and GI prophylaxis. Further recommendations depends on the clinical course of the patient DVT prophylaxis: Subcutaneous heparin GI Prophylaxis: Pepcid Prognosis is guarded
[2021-05-21] MEDS: THIAMINE 100 MG TAB PO SCH ×2 (05:40→16:24)
[2021-05-21 07:58] LABS: African American GFR (CKD) >90 (>60 ml/min/1.73 sqM); Anion Gap 4 mmol/L; Blood Urea Nitrogen 5 mg/dL (9-20); Calcium 8.6 mg/dL (8.4-10.2); Carbon Dioxide 26 mmol/L (22-30); Chloride 92 mmol/L (98-107); Glucose 82 mg/dL (74-99); Non-African American GFR(CKD) >90 (>60 ml/min/1.73 sqM); Potassium 3.8 mmol/L (3.5-5.1); Sodium 122 mmol/L (137-145)
[2021-05-21] MEDS: FOLIC ACID 1 MG TAB PO SCH (08:41)
[2021-05-21] MEDS: FAMOTIDINE 20 MG/2 ML VIAL IV SCH ×2 (08:41→20:19)
[2021-05-21] MEDS: SODIUM CHLORIDE TAB 1 GM TAB PO SCH ×2 (08:41→20:19)
[2021-05-21] MEDS: THIAMINE 100 MG/ML 2 ML VIAL IVP SCH (08:42)
[2021-05-21] MEDS: NYSTATIN 100,000 UNIT/ML SUSP 500,000 UNIT/5 ML CUP PO SCH ×4 (08:42→20:20)
[2021-05-21] MEDS: HEPARIN SODIUM,PORCINE/PF 5,000 UNIT/0.5 ML SYRINGE SQ SCH ×2 (08:42→20:19)
[2021-05-21] MEDS: METOPROLOL TARTRATE 25 MG TAB PO SCH ×2 (08:42→20:19)
[2021-05-21] MEDS: SYMBICORT 160-4.5 MCG INHALER INHALATION SCH ×2 (09:25→19:24)
[2021-05-21] MEDS: LORazepam 2 MG/ML INJ IV PRN (13:01)
--- NOTE | 2021-05-21 13:45 | P.NPCON ---
History of Present Illness - Reason for Consult Consult date: 05/21/21 hyponatremia - Chief Complaint Alcohol and hyponatremia - History of Present Illness This is a 65-year-old male seen in consultation because of hyponatremia. His sodium was 128 on admission and slowly went down to 122 this morning creatinine was 0.5B and was 7 on admission. TSH is 1.83. Blood sugar is normal less than 100. He was admitted with dyspnea and chest discomfort and cough for 3 weeks prior to admission. He is known with alcohol abuse. He was hydrated on admission with IV normal saline 75 an hour and also started on sodium tablets yesterday. and in spite of this sodium and on 122 this morning. He was noted to be encephalopathy from delirium tremens. This morning on an exam he is awake and alert and seemed to be oriented. No asterixis. He is unable to eat solid food very well because of history of CVA of the epiglottis with radiation. He also has additionally is history of COPD, his echocardiogram shows 55% ejection fraction with the right ventricular systolic pressure of 42 mm suggestion of pulmonary hypertension. No history of nausea vomiting diarrhea. No headache no dizziness. Denies any shortness of breath Past Medical History Past Medical History: Cancer, Heart Failure, Hypertension Additional Past Medical History / Comment(s): CANCER EPIGLOTTIS-02/25/19-tx with radiation (finished 04/2019). CARDIOMYOPATHY. VARICOSE VEINS. CHRONIC BACK PAIN, DIFFICULTY WALKING DISTANCE OR SITTING, DRY MOUTH. broken ribs from fall History of Any Multi-Drug Resistant Organisms: None Reported Past Surgical History: Back Surgery, Heart Catheterization Additional Past Surgical History / Comment(s): COLONOSCOPY. PAIN CLINIC PROC'S, [place] [facility] [place] Past Anesthesia/Blood Transfusion Reactions: Previous Problems w/ Anesthesia Additional Past Anesthesia/Blood Transfusion Reaction / Comment(s): WITH 2 PAIN PROC WAS AWAKE, PROCEDURE VERY PAINFUL Past Psychological History: No Psychological Hx Reported Smoking Status: Current every day smoker Past Alcohol Use History: Heavy Past Drug Use History: None Reported - Past Family History Father Family Medical History: Cancer Additional Family Medical History / Comment(s): Father from colon cancer Mother History Unknown: Yes Family Medical History: No Reported History Additional Family Medical History / Comment(s): Mother , not sure of cause Medications and Allergies Home Medications Medication Instructions Recorded Confirmed Type Metoprolol Tartrate [Lopressor] 12.5 mg PO BID 01/29/14 05/16/21 History Gabapentin [Neurontin] 600 mg PO TID 02/18/20 05/16/21 History Acetaminophen-Codeine 300-30mg 1 tab PO Q8H PRN 30 Days #90 tablet 01/11/21 05/16/21 Rx [Tylenol w/codeine #3] Folic Acid 1 mg PO DAILY@1200 #30 tab 03/23/21 05/16/21 Rx lisinopriL [Zestril] 10 mg PO HS #0 03/23/21 05/16/21 Rx Multivitamins, Thera [Multivitamin 1 tab PO DAILY 05/16/21 05/16/21 History (formulary)] Thiamine [Vitamin B-1] 100 mg PO AC-BID 05/16/21 05/16/21 History Allergies Allergy/AdvReac Type Severity Reaction Status Date / Time No Known Allergies Allergy Verified 03/31/21 14:05 Physical Exam Vitals: Vital Signs Temp Pulse Pulse Resp BP BP BP 05/21/21 08:00 97.6 F 81 18 111/57 05/21/21 04:00 98.4 F 64 16 127/67 05/21/21 00:00 65 17 130/80 05/20/21 19:44 98.7 F 76 18 122/69 05/20/21 16:00 74 18 136/84 Pulse Ox 05/21/21 08:00 97 05/21/21 04:00 96 05/21/21 00:00 98 05/20/21 19:44 97 05/20/21 16:00 98 Intake and Output 05/20/21 05/21/21 05/21/21 22:59 06:59 14:59 Intake Total 118 840 Output Total 250 300 350 Balance -132 -300 490 Intake: Oral 118 840 Output: Urine 250 300 350 Other: # Voids 2 On examination he has some moderately emaciated Awake and alert and oriented 3 A chin exam no JVP neck is supple no facial asymmetry Lungs clear to auscultation good air entry bilaterally Heart sounds unremarkable no murmur rub gallop Abdomen soft nontender no organomegaly ascites masses Extremity exam was no edema Neurologically awake alert oriented currently but has generalized weakness. Workup has included MRI which is unremarkable of the brain chest x-ray is unremarkable Results - Lab Results Most recent lab results Calcium 8.6 mg/dL (8.4-10.2) 05/21/21 07:09 Magnesium 1.9 mg/dL (1.6-2.3) 05/19/21 07:28 05/19/21 07:28 05/21/21 07:09 Assessment and Plan Assessment: Impression 1. 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 Unresponsive to salt tablets and IV normal saline at 75 an hour. Possible SIADH. TSH is normal at 1.8 2. History of alcohol intake with delirium tremens improved 3. COPD and pulmonary hypertension. 4. History of CAD epiglottis with radiation 2019 5. History of back pain and back surgery for spinal stenosis. 6. History of heart catheterization details unavailable Recommendation 1. Start 60 g of protein diet he did 2. Fluid restrict to 800 mL. 3. Check urine osmolality urine sodium. 4. DC is normal saline 5. Continue and salt tablets. 6. One dose of Samsca 15 mg
[2021-05-21] MEDS ORDERED: TOLVAPTAN 15 MG 1/2 TABLET PO ONE (14:00)
[2021-05-21] MEDS: SODIUM CHLORIDE 0.9% 1,000 ML IV SCH (15:30)
--- NOTE | 2021-05-21 17:42 | P.PN ---
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 Chronic back pain with difficulty walking for distance. [facility] presents because of dyspnea for 2 days duration associated with some chest tightness. Patient states that since his been having dyspnea with some cough and brown/yellow phlegm for the last 3 weeks however it got really worse yesterday and his told him he has to go to the hospital. No significant chest pain, he has some mild chest pain in the middle yesterday which is resolved. Also patient complains from exertional dyspnea and dizziness, where he goes to the restroom/kitchen he got dizzy and short of breath and he has to sit down. About 3 weeks ago and hit his head. But after that he states he is been all right. Denies any abdominal pain, no nausea vomiting,. No urgency in his urine, no dysuria. No headache. No weakness or numbness. No blurred vision or slurred speech. He smokes about half pack per day, patient is counseled to quit and he states is hard for him to quit, also he declined nicotine patch. He drinks 3-4 beers per day. He denies illicit drugsHe complains from legs are restless and he got 1 dose of Ativan in the emergency room and he feels better. Patient was noticed to stand up next to his bed by ER staff. Patient is afebrile, Vitas looks stable, labs including CBC, BMP and liver enzymes are unremarkable except for low sodium of 127. Troponin 3 are negative less than 0.012. Lipase normal at 157. Preoperative diagnosis is nonsuspicious of infection. 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 05/20/2021 Patient is seen and evaluated resting comfortably in bed; sitter present at bedside Vital signs are reviewed and stable- temperature 98.5, pulse 74, respiration 18 and blood pressure 136/84 Patient remains on IV Ativan per serial protocol; no further seizure activities noted; MRI-unremarkable; lab review shows a sodium of 126; we will start patient on sodium chloride tablet 1 twice a day and sodium levels closely; patient remains on normal saline at rate of 75 mL an hour; has been evaluated by physical therapy and is recommended skilled rehab 05/21/2021 Patient is seen and evaluated resting comfortably in bed Vital signs are reviewed and are stable Lab review reveals downtrending sodium level which is down to 122 from 126 yesterday; patient remains on IV fluids in form of normal saline and sodium chloride tablets; nephrology on board; possible SIADH; patient is recommended to be started on 60 g of protein diet and a fluid restriction of 800 mL per 24 hours; we will check urine sodium and osmolality; patient will continue on salt tablets and will receive One dose of Samsca 15 mg Objective - Vital Signs Vital signs: Vital Signs Temp 97.6 F 05/21/21 08:00 Pulse 81 05/21/21 08:00 Resp 18 05/21/21 08:00 BP 111/57 05/21/21 08:00 Pulse Ox 97 05/21/21 08:00 Intake & Output 05/20/21 05/21/21 05/21/21 18:59 06:59 18:59 Intake Total 478 360 Output Total 200 550 350 Balance 278 -550 10 Intake: Oral 478 360 Output: Urine 200 550 350 Other: # Voids 1 1 - Exam Blood pressure 126/81 heart rate 70 afebrile and maintaining oxygen saturation on room air. CONSTITUTIONAL: No apparent distress. Frail. HEENT: Head is normocephalic. Pupils are equal, round. Sclerae anicteric. Mucous membranes of the mouth are moist. No JVD. No carotid bruit. CHEST EXAMINATION: Lungs are clear to auscultation. No chest wall tenderness is noted on palpation or with deep breathing. HEART EXAMINATION: Regular rate and rhythm. S1, S2 heard. No murmurs, gallops or rub. ABDOMEN: Soft, nontender. EXTREMITIES: 2+ peripheral pulses, no lower extremity edema and no calf tenderness. NEUROLOGIC EXAMINATION: Patient is awake, alert and oriented x3. - Labs CBC & Chem 7: 05/19/21 07:28 05/21/21 07:09 Labs: Abnormal Lab Results - Last 24 Hours (Table) 05/21/21 Range/Units 07:09 Sodium 122 L (137-145) mmol/L Chloride 92 L (98-107) mmol/L BUN 5 L (9-20) mg/dL Creatinine 0.45 L (0.66-1.25) mg/dL Assessment and Plan Assessment: Metabolic and toxic encephalopathy secondary to alcohol and withdrawal Severe alcohol withdrawal with delirium tremens Dizziness fall about 3 weeks ago . 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 Chronic back pain with difficulty walking for distance. Plan: This is a pleasant 65 years old male who presents with SOB/chest tightness. Cardiology consult. Check echocardiogram. Continue with sitter at bedside. Continue with CIWA protocol. Valium Continue with IV hydration Follow-up Sodium level Follow-up MRI of the brain. Follow-up vitamin B12 and hemoglobin A1c Start Requip Labs and medication were reviewed.. Continue same treatment. Continue with symptomatic treatment. Resume home medication. Monitor lytes and vitals. DVT and GI prophylaxis. Further recommendations depends on the clinical course of the patient DVT prophylaxis: Subcutaneous heparin GI Prophylaxis: Pepcid Prognosis is guarded
[2021-05-21 21:10] LABS: African American GFR (CKD) >90 (>60 ml/min/1.73 sqM); Anion Gap 6 mmol/L; Blood Urea Nitrogen 6 mg/dL (9-20); Calcium 8.7 mg/dL (8.4-10.2); Carbon Dioxide 22 mmol/L (22-30); Chloride 97 mmol/L (98-107); Glucose 106 mg/dL (74-99); Non-African American GFR(CKD) >90 (>60 ml/min/1.73 sqM); Potassium 3.4 mmol/L (3.5-5.1); Sodium 125 mmol/L (137-145)
[2021-05-22] MEDS: POTASSIUM CHLORIDE ER 20 MEQ TAB.ER PO SCH ×2 (05:31→05:32)
[2021-05-22] MEDS: THIAMINE 100 MG TAB PO SCH ×2 (05:32→17:44)
[2021-05-22 08:00] LABS: African American GFR (CKD) >90 (>60 ml/min/1.73 sqM); Anion Gap 6 mmol/L; Blood Urea Nitrogen 7 mg/dL (9-20); Calcium 9.2 mg/dL (8.4-10.2); Carbon Dioxide 25 mmol/L (22-30); Chloride 103 mmol/L (98-107); Glucose 84 mg/dL (74-99); Non-African American GFR(CKD) >90 (>60 ml/min/1.73 sqM); Potassium 4.1 mmol/L (3.5-5.1); Sodium 134 mmol/L (137-145)
[2021-05-22] MEDS: SYMBICORT 160-4.5 MCG INHALER INHALATION SCH ×2 (08:57→18:59)
--- NOTE | 2021-05-22 09:36 | P.PN ---
Subjective Patient is seen in follow-up for hyponatremia. He is maintained on sodium chloride tabs and also received a dose of Samsca yesterday. Sodium level 134 today. Denies chest pain or shortness of breath. No vomiting or diarrhea. Vital signs are stable. General: The patient appeared well nourished and normally developed. HEENT: Head exam is unremarkable. Neck is without jugular venous distension. LUNGS: Breath sounds decreased. HEART: Rate and Rhythm are regular. ABDOMEN: Soft, no distention. EXTREMITITES: No edema. Objective - Vital Signs Vital signs: Vital Signs Temp 98 F 05/21/21 20:00 Pulse 72 05/22/21 04:00 Resp 16 05/22/21 04:00 BP 140/77 05/22/21 04:00 Pulse Ox 98 05/22/21 04:00 Intake & Output 05/21/21 05/22/21 05/22/21 18:59 06:59 18:59 Intake Total 1200 Output Total 350 2875 Balance 850 -2875 Weight 46.1 kg Intake: Oral 1200 Output: Urine 350 2875 Other: Voiding Method Toilet Urinal # Voids 2 1 # Bowel Movements 1 - Labs CBC & Chem 7: 05/19/21 07:28 05/22/21 07:27 Labs: Abnormal Lab Results - Last 24 Hours (Table) 05/21/21 05/22/21 Range/Units 20:11 07:27 Sodium 125 L 134 L (137-145) mmol/L Potassium 3.4 L (3.5-5.1) mmol/L Chloride 97 L (98-107) mmol/L BUN 6 L 7 L (9-20) mg/dL Creatinine 0.41 L 0.42 L (0.66-1.25) mg/dL Glucose 106 H (74-99) mg/dL Assessment and Plan Plan: Assessment: 1. Hyponatremia secondary to poor solute intake. Urine osmolality noted to be low at 54. TSH normal. 2. Hypokalemia from poor intake. Replaced. Better. 3. Alcohol abuse. Plan: Stop sodium chloride tabs. Remove fluid restriction. Repeat sodium level this afternoon. Avoid further correction at this time.
[2021-05-22] MEDS: FAMOTIDINE 20 MG/2 ML VIAL IV SCH ×2 (10:18→20:27)
[2021-05-22] MEDS: FOLIC ACID 1 MG TAB PO SCH (10:19)
[2021-05-22] MEDS: METOPROLOL TARTRATE 25 MG TAB PO SCH ×2 (10:19→20:27)
[2021-05-22] MEDS: NYSTATIN 100,000 UNIT/ML SUSP 500,000 UNIT/5 ML CUP PO SCH ×4 (10:20→20:27)
[2021-05-22] MEDS: THIAMINE 100 MG/ML 2 ML VIAL IVP SCH (10:22)
[2021-05-22] MEDS: HEPARIN SODIUM,PORCINE/PF 5,000 UNIT/0.5 ML SYRINGE SQ SCH ×2 (10:36→20:27)
[2021-05-22] MEDS: SODIUM CHLORIDE TAB 1 GM TAB PO SCH (12:32)
[2021-05-22] MEDS: LORazepam 2 MG/ML INJ IV PRN (18:19)
[2021-05-22 19:53] VITALS: TEMP 98.4
[2021-05-23] MEDS: THIAMINE 100 MG TAB PO SCH (05:36)
[2021-05-23] MEDS: SYMBICORT 160-4.5 MCG INHALER INHALATION SCH (08:08)
[2021-05-23] MEDS ORDERED: SODIUM CHLORIDE TAB 1 GM TAB PO SCH (09:00)
[2021-05-23] MEDS: HEPARIN SODIUM,PORCINE/PF 5,000 UNIT/0.5 ML SYRINGE SQ SCH (09:15)
[2021-05-23] MEDS: FAMOTIDINE 20 MG/2 ML VIAL IV SCH (09:15)
[2021-05-23] MEDS: METOPROLOL TARTRATE 25 MG TAB PO SCH (09:15)
[2021-05-23] MEDS: FOLIC ACID 1 MG TAB PO SCH (09:15)
[2021-05-23] MEDS: NYSTATIN 100,000 UNIT/ML SUSP 500,000 UNIT/5 ML CUP PO SCH (09:15)
[2021-05-23] MEDS: THIAMINE 100 MG/ML 2 ML VIAL IVP SCH (09:16)
[2021-05-23 09:20] LABS: African American GFR (CKD) >90 (>60 ml/min/1.73 sqM); Anion Gap 7 mmol/L; Blood Urea Nitrogen 10 mg/dL (9-20); Calcium 9.4 mg/dL (8.4-10.2); Carbon Dioxide 26 mmol/L (22-30); Chloride 97 mmol/L (98-107); Glucose 80 mg/dL (74-99); Magnesium 2.1 mg/dL (1.6-2.3); Non-African American GFR(CKD) >90 (>60 ml/min/1.73 sqM); Sodium 130 mmol/L (137-145)
--- NOTE | 2021-05-23 09:29 | P.PN ---
Subjective Patient is seen in follow-up for hyponatremia. Denies chest pain or shortness of breath. No vomiting or diarrhea. Sodium level 130 as of yesterday afternoon. Vital signs are stable. General: The patient appeared well nourished and normally developed. HEENT: Head exam is unremarkable. Neck is without jugular venous distension. LUNGS: Breath sounds decreased. HEART: Rate and Rhythm are regular. ABDOMEN: Soft, no distention. EXTREMITITES: No edema. Objective - Vital Signs Vital signs: Vital Signs Temp 98.4 F 05/22/21 19:50 Pulse 69 05/23/21 04:00 Resp 16 05/23/21 04:00 BP 162/90 05/23/21 04:00 Pulse Ox 99 05/23/21 04:00 Intake & Output 05/22/21 05/23/21 05/23/21 18:59 06:59 18:59 Intake Total 480 Output Total 125 Balance 355 Weight 46.8 kg Intake: Oral 480 Output: Urine 125 Stool 0 Other: Voiding Method Toilet Toilet Urinal Urinal # Voids 1 2 # Bowel Movements 1 - Labs CBC & Chem 7: 05/19/21 07:28 05/22/21 15:00 Labs: Abnormal Lab Results - Last 24 Hours (Table) 05/22/21 Range/Units 15:00 Sodium 130 L (137-145) mmol/L Assessment and Plan Plan: Assessment: 1. Hyponatremia secondary to poor solute intake. Urine osmolality noted to be low at 54. Urine sodium low at 10. TSH normal. 2. Hypokalemia from poor intake. Replaced. Better. 3. Alcohol abuse. Plan: Encouraged oral intake, particularly protein. Advised him to maintain 40 ounce fluid restriction per day upon discharge. Resume sodium chloride tabs. Follow-up outpatient in 1 week.
[2021-05-23 09:34] VITALS: BP 156/84; PULSE 70; RESP 18
[2021-05-23 09:45] LABS: Potassium 4.7 mmol/L (3.5-5.1)
== END 2021-05-23 10:49 | disposition home or self-care (01) | DRG 896 ==
LOC: EC 20:19 → 3SCARD 23:12 → 6NMEDSUR 23:12 → UNDOADMOB 23:12 → 3SCARD 05-17 13:44
PROVIDERS: ADMIT Hospitalist; ATTEND Hospitalist
DX: F10.231 Alcohol dependence with withdrawal delirium (principal); G92 Toxic encephalopathy; E87.1 Hypo-osmolality and hyponatremia; I42.9 Cardiomyopathy, unspecified; R64 Cachexia; J44.1 Chronic obstructive pulmonary disease with (acute) exacerbation; E44.0 Moderate protein-calorie malnutrition; Z68.1 Body mass index [BMI] 19.9 or less, adult; I11.0 Hypertensive heart disease with heart failure; I50.9 Heart failure, unspecified; Z92.3 Personal history of irradiation; G89.29 Other chronic pain; M54.9 Dorsalgia, unspecified; F17.210 Nicotine dependence, cigarettes, uncomplicated; I45.10 Unspecified right bundle-branch block; R51.9 Headache, unspecified; Z80.0 Family history of malignant neoplasm of digestive organs; D75.89 Other specified diseases of blood and blood-forming organs; I27.20 Pulmonary hypertension, unspecified; I25.10 Atherosclerotic heart disease of native coronary artery without angina pectoris; E87.6 Hypokalemia; I95.1 Orthostatic hypotension; G31.2 Degeneration of nervous system due to alcohol; R13.10 Dysphagia, unspecified; Z91.81 History of falling; Z79.899 Other long term (current) drug therapy; Z85.21 Personal history of malignant neoplasm of larynx; Y90.0 Blood alcohol level of less than 20 mg/100 ml
CPT/HCPCS: 36415; 70450; 70551; 71046; 80048; 80053; 80076; 80320; 81003; 82607; 82746; 83036; 83605; 83690; 83735; 83880; 83935; 84295; 84300; 84443; 84484; 85025; 85379; 85610; 85730; 93005; 93306; 94640; 94760; 95816; 96360; 96361; 99285

== ENCOUNTER 2021-07-02 12:18 | Inpatient (IN) | payer OTHER, MEDICARE ==
--- NOTE | 2021-07-02 12:48 | ED ---
General Adult HPI - General Chief complaint: Shortness of Breath Stated complaint: ELY Time Seen by Provider: 07/02/21 12:23 Source: patient, EMS Mode of arrival: EMS Limitations: no limitations - History of Present Illness Initial comments: Dictation was produced using [employer] dictation software. please excuse any grammatical, word or spelling errors. Chief Complaint: 65-year-old male presents with shortness of breath History of Present Illness: Patient is a 65-year-old male who presents emergency department for shortness of breath. Patient states he is had a pneumothorax several years ago. Patient's been feeling short of breath for the last 3-4 days. Patient's past medical history of heart failure and cancer. Denies any chest pain. He feels like he is wheezing. He did have a mild cough. Denies any constitutional symptoms. Patient denies any runny nose. No sore throat. No obvious sick contacts. The ROS documented in this emergency department record has been reviewed and confirmed by me. Those systems with pertinent positive or negative responses have been documented in the HPI. All other systems are other negative and/or noncontributory. PHYSICAL EXAM: General Impression: Alert and oriented x3, not in acute distress HEENT: Normocephalic atraumatic, extra-ocular movements intact, pupils equal and reactive to light bilaterally, mucous membranes moist. Cardiovascular: Heart regular rate and rhythm Chest: Able to complete full sentences, no retractions, no tachypnea, diminished lung sounds to the left lung price Abdomen: abdomen soft, non-tender, non-distended, no organomegaly Musculoskeletal: Pulses present and equal in all extremities, no peripheral edema Motor: no focal deficits noted Neurological: CN II-XII grossly intact, no focal motor or sensory deficits noted Skin: Intact with no visualized rashes Psych: Normal affect and mood ED course: Patient is 65-year-old male with past medical history of pneumothorax presents with shortness of breath. Vital signs upon arrival are within acceptable limits. Patient's well-appearing at bedside. He has decreased lung sounds to the left side. Chart review shows that patient was evaluated in February of this year for traumatic pneumothorax to the right chest. EKG interpretation: Ventricular rate 72, normal sinus rhythm, OH interval 164, QRS 100, QTC 479. No OH prolongation, no QTC prolongation, no ST or T-wave changes noted. EKG compared to 05/16/2021 showing no changes. Overall, this EKG is unremarkable Duration obtained. CBC, coag panel, metabolic panel was obtained. Mild hyponatremia 123. For panel viral scan is negative for influenza, RSV or coronavirus. Chest x-ray is nonacute. Patient reevaluated at 4 PM resting comfortably. He is not showing signs of respiratory distress. Patient be admitted for hyponatremia. Patient given intravenous fluids. [facility]. - Related Data Home Medications Medication Instructions Recorded Confirmed Metoprolol Tartrate [Lopressor] 12.5 mg PO BID 01/29/14 07/02/21 Gabapentin [Neurontin] 600 mg PO TID 02/18/20 07/02/21 Acetaminophen/Diphenhydramine 1 tab PO HS 07/02/21 07/02/21 [Tylenol PM 500-25mg] lisinopriL [Zestril] 20 mg PO DAILY 07/02/21 07/02/21 Allergies Allergy/AdvReac Type Severity Reaction Status Date / Time No Known Allergies Allergy Verified 07/02/21 14:56 Review of Systems ROS Statement: Those systems with pertinent positive or pertinent negative responses have been documented in the HPI. ROS Other: All systems not noted in ROS Statement are negative. 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 CARDIOMYOPATHY. VARICOSE VEINS. CHRONIC BACK PAIN, DIFFICULTY WALKING DISTANCE OR SITTING, DRY MOUTH. broken ribs from fall History of Any Multi-Drug Resistant Organisms: None Reported Past Surgical History: Back Surgery, Heart Catheterization Additional Past Surgical History / Comment(s): COLONOSCOPY. PAIN CLINIC PROC'S, BACK SURGERY AT [facility] IN [place]. Removed all teeth 2020 Past Anesthesia/Blood Transfusion Reactions: Previous Problems w/ Anesthesia Additional Past Anesthesia/Blood Transfusion Reaction / Comment(s): WITH 2 PAIN PROC WAS AWAKE, PROCEDURE VERY PAINFUL Past Psychological History: No Psychological Hx Reported Smoking Status: Current every day smoker Past Alcohol Use History: Heavy Past Drug Use History: Marijuana - Past Family History Father Family Medical History: Cancer Additional Family Medical History / Comment(s): Father from colon cancer Mother History Unknown: Yes Family Medical History: No Reported History Additional Family Medical History / Comment(s): Mother , not sure of cause General Exam Limitations: no limitations Course Vital Signs 07/02/21 07/02/21 12:24 13:15 Temperature 99.1 F Pulse Rate 69 Respiratory 20 22 Rate Blood Pressure 142/88 O2 Sat by Pulse 98 Oximetry Medical Decision Making - Lab Data Result diagrams: 07/02/21 13:30 07/02/21 13:30 Lab Results 07/02/21 07/02/21 07/02/21 Range/Units 13:30 13:30 13:30 WBC 9.2 (3.8-10.6) k/uL RBC 4.03 L (4.30-5.90) m/uL Hgb 14.5 (13.0-17.5) gm/dL Hct 40.7 (39.0-53.0) % MCV 100.9 H (80.0-100.0) fL MCH 36.0 H (25.0-35.0) pg MCHC 35.7 (31.0-37.0) g/dL RDW 12.5 (11.5-15.5) % Plt Count 307 (150-450) k/uL MPV 7.5 Neutrophils % 89 % Lymphocytes % 5 % Monocytes % 4 % Eosinophils % 1 % Basophils % 0 % Neutrophils # 8.2 H (1.3-7.7) k/uL Lymphocytes # 0.4 L (1.0-4.8) k/uL Monocytes # 0.4 (0-1.0) k/uL Eosinophils # 0.1 (0-0.7) k/uL Basophils # 0.0 (0-0.2) k/uL PT 10.5 (9.0-12.0) sec INR 1.0 (<1.2) APTT 26.8 (22.0-30.0) sec Sodium (137-145) mmol/L Potassium (3.5-5.1) mmol/L Chloride (98-107) mmol/L Carbon Dioxide (22-30) mmol/L Anion Gap mmol/L BUN (9-20) mg/dL Creatinine (0.66-1.25) mg/dL Est GFR (CKD-EPI)AfAm (>60 ml/min/1.73 sqM) Est GFR (CKD-EPI)NonAf (>60 ml/min/1.73 sqM) Glucose (74-99) mg/dL Calcium (8.4-10.2) mg/dL Troponin I (0.000-0.034) ng/mL NT-Pro-B Natriuret Pep pg/mL Influenza Type A (PCR) Not Detected (Not Detectd) Influenza Type B (PCR) Not Detected (Not Detectd) RSV (PCR) Not Detected (Not Detectd) SARS-CoV-2 (PCR) Not Detected (Not Detectd) 07/02/21 07/02/21 07/02/21 Range/Units 13:30 13:30 13:30 WBC (3.8-10.6) k/uL RBC (4.30-5.90) m/uL Hgb (13.0-17.5) gm/dL Hct (39.0-53.0) % MCV (80.0-100.0) fL MCH (25.0-35.0) pg MCHC (31.0-37.0) g/dL RDW (11.5-15.5) % Plt Count (150-450) k/uL MPV Neutrophils % % Lymphocytes % % Monocytes % % Eosinophils % % Basophils % % Neutrophils # (1.3-7.7) k/uL Lymphocytes # (1.0-4.8) k/uL Monocytes # (0-1.0) k/uL Eosinophils # (0-0.7) k/uL Basophils # (0-0.2) k/uL PT (9.0-12.0) sec INR (<1.2) APTT (22.0-30.0) sec Sodium 123 L (137-145) mmol/L Potassium 4.3 (3.5-5.1) mmol/L Chloride 91 L (98-107) mmol/L Carbon Dioxide 25 (22-30) mmol/L Anion Gap 7 mmol/L BUN 11 (9-20) mg/dL Creatinine 0.48 L (0.66-1.25) mg/dL Est GFR (CKD-EPI)AfAm >90 (>60 ml/min/1.73 sqM) Est GFR (CKD-EPI)NonAf >90 (>60 ml/min/1.73 sqM) Glucose 83 (74-99) mg/dL Calcium 9.2 (8.4-10.2) mg/dL Troponin I <0.012 (0.000-0.034) ng/mL NT-Pro-B Natriuret Pep 247 pg/mL Influenza Type A (PCR) (Not Detectd) Influenza Type B (PCR) (Not Detectd) RSV (PCR) (Not Detectd) SARS-CoV-2 (PCR) (Not Detectd) Disposition Clinical Impression: Hyponatremia Disposition: ADMITTED IP TO THIS HOSP Condition: Fair Referrals: [facility],Clinic [Primary Care Provider] - 1-2 days
--- NOTE | 2021-07-02 13:25 | XR ---
EXAMINATION TYPE: XR chest 1V portable DATE OF EXAM: 07/02/2021 COMPARISON: Chest x-ray May 16, 2021 HISTORY: Dyspnea. History of throat cancer TECHNIQUE: 2 AP portable frontal views of the chest are obtained. FINDINGS: There is background chronic emphysematous change without suspicious new focal air space op acity, pleural effusion, or pneumothorax seen. The cardiac silhouette size is stable and within norm al limits. Fractures of the posterior lateral right eighth and ninth ribs redemonstrated, suspected s ubacute in age. Correlate clinically. Underlying scoliosis in the thoracolumbar spine again seen. IMPRESSION: Chronic changes without new acute pulmonary process.
[2021-07-02 14:05] LABS: Basophils % (A) 0 %; Eosinophils # (A) 0.1 k/uL (0-0.7); Eosinophils % (A) 1 %; HCT 40.7 % (39.0-53.0); HGB 14.5 gm/dL (13.0-17.5); Lymphocytes # (A) 0.4 k/uL (1.0-4.8); Lymphocytes % (A) 5 %; MCHC 35.7 g/dL (31.0-37.0); MCV 100.9 fL (80.0-100.0); Mean Platelet Volume 7.5; Monocytes # (A) 0.4 k/uL (0-1.0); Monocytes % (A) 4 %; Neutrophils # (A) 8.2 k/uL (1.3-7.7); Neutrophils % (A) 89 %; Platelet Count 307 k/uL (150-450); RBC 4.03 m/uL (4.30-5.90); RDW 12.5 % (11.5-15.5); WBC 9.2 k/uL (3.8-10.6)
[2021-07-02 14:15] LABS: Partial Thromboplastin Time 26.8 sec (22.0-30.0); Prothrombin Time 10.5 sec (9.0-12.0)
[2021-07-02 14:17] LABS: African American GFR (CKD) >90 (>60 ml/min/1.73 sqM); Anion Gap 7 mmol/L; Blood Urea Nitrogen 11 mg/dL (9-20); Calcium 9.2 mg/dL (8.4-10.2); Carbon Dioxide 25 mmol/L (22-30); Chloride 91 mmol/L (98-107); Glucose 83 mg/dL (74-99); Non-African American GFR(CKD) >90 (>60 ml/min/1.73 sqM); Potassium 4.3 mmol/L (3.5-5.1); Sodium 123 mmol/L (137-145)
[2021-07-02] MEDS ORDERED: SODIUM CHLORIDE 0.9% 1,000 ML IV STA (15:13)
[2021-07-02] MEDS ORDERED: IPRATROPIUM-ALBUTEROL 3 ML NEB INHALATION PRN (15:44)
[2021-07-02] MEDS ORDERED: predniSONE 20 MG TAB PO STA (15:44)
[2021-07-02] MEDS ORDERED: NALOXONE 0.4 MG/ML 1 ML VIAL IV PRN (16:01)
[2021-07-02] MEDS ORDERED: ZOLPIDEM 5 MG TAB PO STA (16:02)
[2021-07-02] MEDS ORDERED: NICOTINE 21MG/24HR PATCH TRANSDERM STA (16:15)
[2021-07-02] MEDS: GABAPENTIN 300 MG CAP PO SCH ×2 (16:49→20:03)
--- NOTE | 2021-07-02 16:54 | P.HPIM ---
History of Present Illness Patient is a 65-year-old male with known history of smoking came in with compensative shortness of breath and is being admitted for COPD exacerbation chest x-ray did not show any pneumonia or pulmonary edema patient has a BNP of around 200. Patient has been short of breath for 3-4 days along with cough without any sputum production denied any chest pain. Patient is also hyponatremic patient was hyponatremic in the past as well patient was treated for this in month of April and was believed to be due to decreased solute intak e and patient was discharged on salt tablets and was asked to increase her protein intake. Patient's troponins are negative REVIEW OF SYSTEMS: CONSTITUTIONAL: No fever, no malaise, no fatigue. HEENT: No recent visual problems or hearing problems. Denied any sore throat. CARDIOVASCULAR: No chest pain, orthopnea, PND, no palpitations, no syncope. PULMONARY: As mentioned in HPI GASTROINTESTINAL: No diarrhea, no nausea, no vomiting, no abdominal pain. NEUROLOGICAL: No headaches, no weakness, no numbness. HEMATOLOGICAL: Denies any bleeding or petechiae. GENITOURINARY: Denies any burning micturition, frequency, or urgency. MUSCULOSKELETAL/RHEUMATOLOGICAL: Denies any joint pain, swelling, or any muscle pain. ENDOCRINE: Denies any polyuria or polydipsia. The rest of the 14-point review of systems is negative. PHYSICAL EXAMINATION: GENERAL: The patient is alert and oriented x3, not in any acute distress. Well developed, well nourished. HEENT: Pupils are round and equally reacting to light. EOMI. No scleral icterus. No conjunctival pallor. Normocephalic, atraumatic. No pharyngeal erythema. No thyromegaly. CARDIOVASCULAR: S1 and S2 present. No murmurs, rubs, or gallops. PULMONARY: Decreased air entry into bilateral lung price ABDOMEN: Soft, nontender, nondistended, normoactive bowel sounds. No palpable organomegaly. MUSCULOSKELETAL: No joint swelling or deformity. EXTREMITIES: No cyanosis, clubbing, or pedal edema. NEUROLOGICAL: Gross neurological examination did not reveal any focal deficits. SKIN: No rashes. Assessment and plan -Short of breath: Patient doesn't have much of wheezing on exam may be severe emphysema patient will be continued on systemic steroids inhalational treatments will also get an ABG, consult pulmonary obtain a d-dimer -Hyponatremia: Hypervolemic hyponatremia during his past hospitalization patient related to have decreased solute intake and was on salt tablets at that time we'll reconsult nephrology patient will be started on IV fluids for now -Macrocytosis we'll obtain B12 level, can be secondary to alcoholism -Hypertension -Continued nicotine use: Counseling was provided, nicotine patch was ordered -Chronic alcoholism drinks about 3-4 beats daily DVT prophylaxis: Lovenox Past Medical History Past Medical History: Cancer, Heart Failure, Hypertension Additional Past Medical History / Comment(s): CANCER EPIGLOTTIS-02/25/19-tx with radiation (finished 04/2019). CARDIOMYOPATHY. VARICOSE VEINS. CHRONIC BACK PAIN, DIFFICULTY WALKING DISTANCE OR SITTING, DRY MOUTH. broken ribs from fall History of Any Multi-Drug Resistant Organisms: None Reported Past Surgical History: Back Surgery, Heart Catheterization Additional Past Surgical History / Comment(s): COLONOSCOPY. PAIN CLINIC PROC'S, BACK SURGERY AT [facility] IN [place]. Removed all teeth 2020 Past Anesthesia/Blood Transfusion Reactions: Previous Problems w/ Anesthesia Additional Past Anesthesia/Blood Transfusion Reaction / Comment(s): WITH 2 PAIN PROC WAS AWAKE, PROCEDURE VERY PAINFUL Past Psychological History: No Psychological Hx Reported Smoking Status: Current every day smoker Past Alcohol Use History: Heavy Past Drug Use History: Marijuana - Past Family History Father Family Medical History: Cancer Additional Family Medical History / Comment(s): Father from colon cancer Mother History Unknown: Yes Family Medical History: No Reported History Additional Family Medical History / Comment(s): Mother , not sure of cause Medications and Allergies Home Medications Medication Instructions Recorded Confirmed Type Metoprolol Tartrate [Lopressor] 12.5 mg PO BID 01/29/14 07/02/21 History Gabapentin [Neurontin] 600 mg PO TID 02/18/20 07/02/21 History Acetaminophen/Diphenhydramine 1 tab PO HS 07/02/21 07/02/21 History [Tylenol PM 500-25mg] lisinopriL [Zestril] 20 mg PO DAILY 07/02/21 07/02/21 History Allergies Allergy/AdvReac Type Severity Reaction Status Date / Time No Known Allergies Allergy Verified 07/02/21 14:56 Physical Exam Vitals: Vital Signs Temp Pulse Resp BP Pulse Ox 07/02/21 13:15 22 07/02/21 12:24 99.1 F 69 20 142/88 98 Intake and Output 07/02/21 07/02/21 07/02/21 06:59 14:59 22:59 Other: Weight 48.988 kg Results CBC & Chem 7: 07/02/21 13:30 07/02/21 13:30 Labs: Abnormal Lab Results - Last 24 Hours (Table) 07/02/21 07/02/21 Range/Units 13:30 13:30 RBC 4.03 L (4.30-5.90) m/uL MCV 100.9 H (80.0-100.0) fL MCH 36.0 H (25.0-35.0) pg Neutrophils # 8.2 H (1.3-7.7) k/uL Lymphocytes # 0.4 L (1.0-4.8) k/uL Sodium 123 L (137-145) mmol/L Chloride 91 L (98-107) mmol/L Creatinine 0.48 L (0.66-1.25) mg/dL
[2021-07-02] MEDS: IPRATROPIUM-ALBUTEROL 3 ML NEB INHALATION SCH ×2 (17:02→19:42)
[2021-07-02 17:16] LABS: ABG Base Excess 1.4 mmol/L; ABG HCO3 24 mmol/L (21-25); ABG PCO2 31 mmHg (35-45); ABG PH 7.51 (7.35-7.45); ABG PO2 196 mmHg (83-108); ABG TCO2 25 mmol/L (19-24); Allen Test Performed? Yes
[2021-07-02] MEDS: SODIUM CHLORIDE 0.9% 1,000 ML IV SCH ×2 (17:59→23:46)
[2021-07-02] MEDS: FAMOTIDINE 20 MG TAB PO SCH (20:03)
[2021-07-02] MEDS: METOPROLOL TARTRATE 12.5 MG TAB PO SCH (20:03)
[2021-07-02] MEDS ORDERED: NON FORMULARY DRUG (Acetaminophen/Diphenhydramine [Tylenol Pm 500-25mg] 1 EACH Tablet) PO SCH (21:00)
[2021-07-02] MEDS: MELATONIN 5 MG TABLET PO SCH (21:38)
[2021-07-02] MEDS: ACETAMINOPHEN TAB 325 MG TAB PO PRN (21:38)
[2021-07-03] MEDS: IPRATROPIUM-ALBUTEROL 3 ML NEB INHALATION SCH ×4 (07:30→19:21)
[2021-07-03] MEDS: ENOXAPARIN 40 MG/0.4 ML SYRINGE SQ SCH (08:19)
[2021-07-03] MEDS: lisinopriL 20 MG TAB PO SCH (08:19)
[2021-07-03] MEDS: FAMOTIDINE 20 MG TAB PO SCH ×2 (08:19→21:40)
[2021-07-03] MEDS: METOPROLOL TARTRATE 12.5 MG TAB PO SCH ×2 (08:19→21:40)
[2021-07-03] MEDS: GABAPENTIN 300 MG CAP PO SCH ×3 (08:19→21:40)
[2021-07-03 11:30] LABS: African American GFR (CKD) 195.6 (60.0-200.0); Anion Gap 12.3 mmol/L (4.00-12.00); BUN/Creat Ratio 50.21 Ratio (12.00-20.00); Blood Urea Nitrogen 9.4 mg/dL (9.0-27.0); Calcium 8.6 mg/dL (8.7-10.3); Carbon Dioxide 17.3 mmol/L (21.6-31.8); Non-African American GFR(CKD) 168.8 (60.0-200.0); Potassium 4.6 mmol/L (3.5-5.5)
[2021-07-03] MEDS: ACETAMINOPHEN TAB 325 MG TAB PO PRN (14:14)
[2021-07-03] MEDS: SODIUM CHLORIDE TAB 1 GM TAB PO SCH ×3 (14:14→21:40)
[2021-07-03 15:08] VITALS: BMI 15.5
--- NOTE | 2021-07-03 16:42 | P.CNPUL ---
History of Present Illness Consult date: 07/03/21 Requesting physician: Levy Key Reason for consult: COPD Chief complaint: Shortness of breath History of present illness: This is a 65-year-old white male, 17-vyap-eilg smoking history, heavy alcohol drinker, patient drinks on a daily basis, admitted yesterday with a few days' history of increased shortness of breath, intermittent cough, described as dry cough, occasional wheezing. Chest x-ray was basically unremarkable. Patient was noted to be hyponatremic, and his ABG showed a pO2 of 196 pCO2 of 31 pH of 7.51 and this was supposedly on room air. At any rate considering his shortness of breath on exertion and intermittent cough and wheezing I was asked to see him on consultation. His sodium is being corrected and it is felt to be related to Beer Potomania. His renal profile is normal. And his bicarb is 25. Screening for COVID-19 infection came back negative. Review of Systems CONSTITUTIONAL: Negative HEENT: Negative. CARDIOVASCULAR: Negative. PULMONARY: As mentioned in HPI GASTROINTESTINAL: Negative. NEUROLOGICAL: Negative. HEMATOLOGICAL: Denies any bleeding or petechiae. GENITOURINARY: Negative. MUSCULOSKELETAL/RHEUMATOLOGICAL: Negative ENDOCRINE: Denies any polyuria or polydipsia. 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 CARDIOMYOPATHY. VARICOSE VEINS. CHRONIC BACK PAIN, DIFFICULTY WALKING DISTANCE OR SITTING, DRY MOUTH. broken ribs from fall History of Any Multi-Drug Resistant Organisms: None Reported Past Surgical History: Back Surgery, Heart Catheterization Additional Past Surgical History / Comment(s): COLONOSCOPY. PAIN CLINIC PROC'S, BACK SURGERY AT [facility] – [place]. Removed all teeth 2020 Past Anesthesia/Blood Transfusion Reactions: Previous Problems w/ Anesthesia Additional Past Anesthesia/Blood Transfusion Reaction / Comment(s): WITH 2 PAIN PROC WAS AWAKE, PROCEDURE VERY PAINFUL Past Psychological History: No Psychological Hx Reported Smoking Status: Current every day smoker Past Alcohol Use History: Heavy Additional Past Alcohol Use History / Comment(s): Admits to smoking 1 pack per day since he was 14; admits to 3-4 beers daily Past Drug Use History: Marijuana Additional Drug Use History / Comment(s): Admits to daily marijuana use - Past Family History Father Family Medical History: Cancer Additional Family Medical History / Comment(s): Father from colon cancer Mother History Unknown: Yes Family Medical History: No Reported History Additional Family Medical History / Comment(s): Mother , not sure of cause Medications and Allergies Home Medications Medication Instructions Recorded Confirmed Type Metoprolol Tartrate [Lopressor] 12.5 mg PO BID 01/29/14 07/02/21 History Gabapentin [Neurontin] 600 mg PO TID 02/18/20 07/02/21 History Acetaminophen/Diphenhydramine 1 tab PO HS 07/02/21 07/02/21 History [Tylenol PM 500-25mg] lisinopriL [Zestril] 20 mg PO DAILY 07/02/21 07/02/21 History Allergies Allergy/AdvReac Type Severity Reaction Status Date / Time No Known Allergies Allergy Verified 07/02/21 14:56 Physical Exam Vitals: Vital Signs Temp Pulse Pulse Resp BP BP Pulse Ox 07/03/21 11:56 98.3 F 63 18 109/71 98 07/03/21 11:20 74 07/03/21 11:13 74 07/03/21 08:18 74 152/83 07/03/21 04:49 97.6 F 68 20 101/65 100 07/02/21 20:00 97.9 F 86 18 102/67 100 07/02/21 17:13 70 16 07/02/21 17:01 67 16 07/02/21 16:59 70 20 138/86 98 Intake and Output 07/03/21 07/03/21 07/03/21 06:59 14:59 22:59 Intake Total 500 Balance 500 Intake: Oral 500 Other: Voiding Method Toilet # Voids 2 Weight 48.988 kg Physical Exam revealed a 65-year-old white male in no distress. Head: Atraumatic, normocephalic. HEENT:[Neck is supple.] [No neck masses.] [No thyromegaly.] [No JVD.] Chest: [Clear throughout, no crackles, no rhonchi, no wheezes.] Cardiac Exam: [Normal S1 and S2, no S3 gallop, no murmur.] Abdomen: [Soft, nontender, no megaly, no rebound, no guarding, normal bowel sounds.] Extremities: [No clubbing, no edema, no cyanosis.] Neurological Exam: [No focal neurologic deficit.] Alert oriented 3. Psychiatric: Normal mood, affect and normal mental status examination Skin: No rashes Results - Laboratory Findings CBC and BMP: 07/02/21 13:30 07/03/21 11:33 ABG ABG pH 7.51 (7.35-7.45) H 07/02/21 17:12 ABG pCO2 31 mmHg (35-45) L 07/02/21 17:12 ABG pO2 196 mmHg (83-108) H 07/02/21 17:12 ABG O2 Saturation 100.0 % (94-97) H 07/02/21 17:12 PT/INR, D-dimer PT 10.5 sec (9.0-12.0) 07/02/21 13:30 INR 1.0 (<1.2) 07/02/21 13:30 D-Dimer 0.36 mg/L FEU (<0.60) 07/02/21 18:55 Abnormal lab findings: Abnormal Labs 07/02/21 07/02/21 07/02/21 13:30 13:30 17:12 RBC 4.03 L MCV 100.9 H MCH 36.0 H Neutrophils # 8.2 H Lymphocytes # 0.4 L ABG pH 7.51 H ABG pCO2 31 L ABG pO2 196 H ABG Total CO2 25 H ABG O2 Saturation 100.0 H Sodium 123 L Chloride 91 L Carbon Dioxide Anion Gap Creatinine 0.48 L BUN/Creatinine Ratio Glucose Calcium 07/03/21 07/03/21 06:13 11:33 RBC MCV MCH Neutrophils # Lymphocytes # ABG pH ABG pCO2 ABG pO2 ABG Total CO2 ABG O2 Saturation Sodium 126 L 125 L Chloride Carbon Dioxide 17.3 L Anion Gap 12.30 H Creatinine 0.2 L BUN/Creatinine Ratio 50.21 H Glucose 135 H Calcium 8.6 L - Diagnostic Findings Chest x-ray: image reviewed (As noted in HPI) Assessment and Plan Assessment: Impression: Shortness of breath secondary to underlying COPD, however based on my physical findings and based on the ABG, his COPD does not seem to be relatively active at this point. Hyponatremia most likely secondary to Beer potomania Benign essential hypertension History of alcoholism Tobacco dependence syndrome Recommendation: Continue present treatment plan as per the admitting physician No need for IV Solu-Medrol. Continue bronchodilators. Nephrology to see for hyponatremia Will reevaluate in a.m. and possibly arrange for discharge planning and follow- up on outpatient basis in the next 24-48 hours. Time with Patient: Greater than 30
[2021-07-03] MEDS: MELATONIN 5 MG TABLET PO SCH (21:40)
--- NOTE | 2021-07-04 03:22 | P.PN ---
Subjective Progress Note Date: 07/03/21 Patient is a 65-year-old male with known history of smoking came in with compensative shortness of breath and is being admitted for COPD exacerbation chest x-ray did not show any pneumonia or pulmonary edema patient has a BNP of around 200. Patient has been short of breath for 3-4 days along with cough without any sputum production denied any chest pain. Patient is also hyponatremic patient was hyponatremic in the past as well patient was treated for this in month of April and was believed to be due to decreased solute intake and patient was discharged on salt tablets and was asked to increase her protein intake. Patient's troponins are negative 07/03/2021 Patient is seen and evaluated in follow up this morning and requesting to go home. Patient is awaiting evaluation from pulmonary for COPD along with nephrology for hyponatremia. Sodium is 126 today and will add sodium chloride tablets. Encouraged oral intake. Other labs within normal limits. Review of systems: Constitutional: No reports of fatigue, fever, or chills Cardiovascular: No reports of chest pain or palpitations Respiratory: No reports of shortness of breath or cough GI: No reports of nausea, vomiting, or diarrhea : No reports of dysuria or retention Neurovascular: reports of generalized weakness All medications have been reviewed Active Medications Acetaminophen (Acetaminophen Tab 325 Mg Tab) 650 mg PO Q4HR PRN PRN Reason: Fever and/ or Pain Last Admin: 07/03/21 14:14 Dose: 650 mg Documented by: Albuterol/Ipratropium (Ipratropium-Albuterol 3 Ml Neb) 3 ml INHALATION RT-QID PRN PRN Reason: Shortness Of Breath Or Wheezing Albuterol/Ipratropium (Ipratropium-Albuterol 3 Ml Neb) 3 ml INHALATION RT-QID [facility] Last Admin: 07/03/21 15:15 Dose: Not Given Documented by: Enoxaparin Sodium (Enoxaparin 40 Mg/0.4 Ml Syringe) 40 mg SQ DAILY [facility] Last Admin: 07/03/21 08:19 Dose: 40 mg Documented by: Famotidine (Famotidine 20 Mg Tab) 20 mg PO BID [facility] Last Admin: 07/03/21 08:19 Dose: 20 mg Documented by: Gabapentin (Gabapentin 300 Mg Cap) 600 mg PO TID [facility] Last Admin: 07/03/21 08:19 Dose: 600 mg Documented by: Lisinopril (Lisinopril 20 Mg Tab) 20 mg PO DAILY [facility] Last Admin: 07/03/21 08:19 Dose: 20 mg Documented by: Melatonin (Melatonin 5 Mg Tablet) 5 mg PO HS [facility] Last Admin: 07/02/21 21:38 Dose: 5 mg Documented by: Metoprolol Tartrate (Metoprolol Tartrate 12.5 Mg Tab) 12.5 mg PO BID [facility] Last Admin: 07/03/21 08:19 Dose: 12.5 mg Documented by: Naloxone HCl (Naloxone 0.4 Mg/Ml 1 Ml Vial) 0.2 mg IV Q2M PRN PRN Reason: Opioid Reversal Sodium Chloride (Sodium Chloride Tab 1 Gm Tab) 1 gm PO TID [facility] Last Admin: 07/03/21 14:14 Dose: 1 gm Documented by: PHYSICAL EXAMINATION: GENERAL: The patient is alert and oriented x3, not in any acute distress. Well developed, well nourished. Appears older than stated age. HEENT: Pupils are round and equally reacting to light. EOMI. No scleral icterus. No conjunctival pallor. Normocephalic, atraumatic. No pharyngeal erythema. No thyromegaly. CARDIOVASCULAR: S1 and S2 present. No murmurs, rubs, or gallops. PULMONARY: Decreased air entry into bilateral lung price with no wheezing or rhonchi noted ABDOMEN: Soft, nontender, nondistended, normoactive bowel sounds. No palpable organomegaly. MUSCULOSKELETAL: No joint swelling or deformity. EXTREMITIES: No cyanosis, clubbing, or pedal edema. NEUROLOGICAL: Gross neurological examination did not reveal any focal deficits. SKIN: No rashes. Assessment and plan: -Shortness of breath: possibly secondary to COPD acute exacerbation, pulmonary consulted -Hyponatremia: Hypervolemic hyponatremia, started on salt tabs and nephrology consulted. Will repeat labs -Macrocytosis we'll obtain B12 level, can be secondary to alcoholism -Hypertension -Continued nicotine use: Counseling was provided, nicotine patch was ordered -Chronic alcoholism drinks about 3-4 beers daily -DVT prophylaxis: Lovenox Plan: Discontinue IV fluids and started on salt tabs. Nephrology consulted along with pulmonary. Patient is requesting to go home. Will repeat am labs and continue to monitor closely. Possible discharge in the am. Objective - Vital Signs Vital signs: Vital Signs Temp 97.6 F 07/03/21 04:49 Pulse 74 07/03/21 08:18 Resp 20 07/03/21 04:49 BP 152/83 07/03/21 08:18 Pulse Ox 100 07/03/21 04:49 Intake & Output 07/02/21 07/03/21 07/03/21 18:59 06:59 18:59 Intake Total 200 820 Balance 200 820 Weight 48.988 kg Intake: Intake, IV Titration 200 Amount Sodium Chloride 0.9% 1, 200 000 ml @ 75 mls/hr IV . [id number] [facility] Rx#:[id number] Oral 820 Other: Voiding Method Toilet # Voids 1 2 - Labs CBC & Chem 7: 07/02/21 13:30 07/03/21 11:33 Labs: Abnormal Lab Results - Last 24 Hours (Table) 07/02/21 07/02/21 07/02/21 Range/Units 13:30 13:30 17:12 RBC 4.03 L (4.30-5.90) m/uL MCV 100.9 H (80.0-100.0) fL MCH 36.0 H (25.0-35.0) pg Neutrophils # 8.2 H (1.3-7.7) k/uL Lymphocytes # 0.4 L (1.0-4.8) k/uL ABG pH 7.51 H (7.35-7.45) ABG pCO2 31 L (35-45) mmHg ABG pO2 196 H (83-108) mmHg ABG Total CO2 25 H (19-24) mmol/L ABG O2 Saturation 100.0 H (94-97) % Sodium 123 L (137-145) mmol/L Chloride 91 L (98-107) mmol/L Creatinine 0.48 L (0.66-1.25) mg/dL
[2021-07-04 06:46] LABS: African American GFR (CKD) >90 (>60 ml/min/1.73 sqM); Anion Gap 3 mmol/L; Blood Urea Nitrogen 5 mg/dL (9-20); Calcium 8.6 mg/dL (8.4-10.2); Carbon Dioxide 24 mmol/L (22-30); Chloride 98 mmol/L (98-107); Glucose 84 mg/dL (74-99); Non-African American GFR(CKD) >90 (>60 ml/min/1.73 sqM); Potassium 4.3 mmol/L (3.5-5.1); Sodium 125 mmol/L (137-145)
[2021-07-04] MEDS: GABAPENTIN 300 MG CAP PO SCH ×2 (08:11→16:58)
[2021-07-04] MEDS: SODIUM CHLORIDE TAB 1 GM TAB PO SCH ×2 (08:11→16:59)
[2021-07-04] MEDS: lisinopriL 20 MG TAB PO SCH (08:11)
[2021-07-04] MEDS: ENOXAPARIN 40 MG/0.4 ML SYRINGE SQ SCH (08:11)
[2021-07-04] MEDS: METOPROLOL TARTRATE 12.5 MG TAB PO SCH (08:11)
[2021-07-04] MEDS: FAMOTIDINE 20 MG TAB PO SCH (08:11)
[2021-07-04] MEDS: IPRATROPIUM-ALBUTEROL 3 ML NEB INHALATION SCH ×3 (08:32→16:58)
[2021-07-04] MEDS ORDERED: TOLVAPTAN 15 MG 1/2 TABLET PO ONE (10:30)
--- NOTE | 2021-07-04 11:34 | CONS ---
CONSULTATION REASON FOR CONSULTATION: Hyponatremia. HISTORY OF PRESENT ILLNESS: Patient is a 65-year-old male who was admitted to the hospital with shortness of breath for 3-4 days prior to admission. Patient has underlying history of COPD. He also has a history of hyponatremia. His serum sodium level was 123 on admission. Patient received saline yesterday after his sodium had already increased to 126, and today the sodium is down to 125. Previous workup during his recent hospitalization in April showed hyponatremia to be associated with poor intake and low urinary osmoles. Urine osmolality had been as low as 54 at that time and urine sodium was low at 10. Patient received sodium chloride tabs, but it appears that he was not getting it at home prior to this admission. Blood pressure has been around 101 to 102 mmHg systolic. No other complaints of nausea, vomiting or diarrhea this admission. PAST MEDICAL HISTORY: CHF, hypertension, cancer of the epiglottis, status post radiation therapy, history of cardiomyopathy, chronic back pain, rib fractures. PAST SURGICAL HISTORY: Cardiac catheterization, back surgery, colonoscopy, removal of all teeth. SOCIAL HISTORY: Patient is a current smoker. There is history of heavy use of alcohol and history of use of marijuana. MEDICATIONS: Medications prior to admission included Lopressor, Neurontin, Zestril and Tylenol. ALLERGIES: NONE. REVIEW OF SYSTEMS: As per HPI. Other systems negative. PHYSICAL EXAMINATION: Patient is awake, comfortable, not in any acute distress. Blood pressure this morning 109/71, heart rate 63 per minute. He is afebrile. EXAMINATION OF THE HEART: S1 and S2. EXAMINATION OF LUNGS: Bilateral breath sounds are heard. Abdomen is soft, non-tender. Examination of lower extremities shows no significant edema. [employer] EXAM: Grossly intact. Labs show sodium of 126, potassium 4.6, serum creatinine at 0.2 mg/dL. ASSESSMENT: 1. Hyponatremia associated with poor intake and low urinary osmoles based on last admission with a urine osmolality at 54 on 05/22/2021. Patient has been restarted on sodium chloride tabs. His blood pressure has been on the lower side. Check random cortisol level if not checked on last admission. 2. Chronic obstructive pulmonary disease exacerbation, currently stable. 3. Hypertension; blood pressure is on the lower side. May need to decrease the dose of Zestril. Renal function is currently stable. 4. History of esophageal cancer, status post radiation therapy. PLAN: Resume sodium chloride tabs. Maintain some degree of free water restriction. Check random cortisol level since blood pressure is also on the lower side to rule out adrenal insufficiency. Thank you for this consultation. Will continue to follow the patient with you during his hospitalization. DOROTEO / JEANE: [id number] /
[2021-07-04 12:10] VITALS: BP 93/56; PULSE 67; RESP 17; TEMP 97.8
--- NOTE | 2021-07-04 13:30 | P.PN ---
Subjective Progress Note Date: 07/04/21 Principal diagnosis: Shortness of breath This is a 65-year-old white male, [id number]-[id number] smoking history, heavy alcohol drinker, patient drinks on a daily basis, admitted yesterday with a few days' history of increased shortness of breath, intermittent cough, described as dry cough, occasional wheezing. Chest x-ray was basically unremarkable. Patient was noted to be hyponatremic, and his ABG showed a pO2 of 196 pCO2 of 31 pH of 7.51 and this was supposedly on room air. At any rate considering his shortness of breath on exertion and intermittent cough and wheezing I was asked to see him on consultation. His sodium is being corrected and it is felt to be related to Beer Potomania. His renal profile is normal. And his bicarb is 25. Screening for COVID-19 infection came back negative. On July 04, 2021 patient seen in follow-up on medical oncology floor. He is awake and alert, very pleasant, cooperative, he is oriented 3, he is breathing comfortably, resting comfortably in bed, remains pulse ox is 96%, blood pressures 93 or 56, his been afebrile. Patient continues on sodium tablets 1 g 3 times daily, she did receive 50 mg of told that time, and nephrology is following. Today's sodium is 125, potassium is 4.3, B1 is 5, creatinine 0.39. His urine osmolality is 688. Does not seem to be confused, no seizures, answering questions appropriately. He is tolerating oral diet. Objective - Vital Signs Vital signs: Vital Signs Temp 97.8 F 07/04/21 12:09 Pulse 67 07/04/21 12:09 Resp 17 07/04/21 12:09 BP 93/56 07/04/21 12:09 Pulse Ox 96 07/04/21 12:09 Intake & Output 07/03/21 07/04/21 07/04/21 18:59 06:59 18:59 Intake Total 840 Balance 840 Weight 48.988 kg 48.5 kg Intake: Oral 840 Other: Voiding Method Toilet Toilet # Voids 2 3 - Exam GENERAL EXAM: Alert, very pleasant, 65-year-old white male, on room air with a pulse ox of 96-98% comfortable in no apparent distress. HEAD: Normocephalic/atraumatic. EYES: Normal reaction of pupils, equal size. Conjunctiva pink, sclera white. NOSE: Clear with pink turbinates. THROAT: No erythema or exudates. NECK: No masses, no JVD, no thyroid enlargement, no adenopathy. CHEST: No chest wall deformity. Symmetrical expansion. LUNGS: Equal air entry with no crackles, wheeze, rhonchi or dullness. CVS: Regular rate and rhythm, normal S1 and S2, no gallops, no murmurs, no rubs ABDOMEN: Soft, nontender. No hepatosplenomegaly, normal bowel sounds, no guarding or rigidity. EXTREMITIES: No clubbing, no edema, no cyanosis, 2+ pulses and upper and lower extremities. MUSCULOSKELETAL: Muscle strength and tone normal. SPINE: No scoliosis or deformity SKIN: No rashes CENTRAL NERVOUS SYSTEM: Alert and oriented -3. No focal deficits, tone is normal in all 4 extremities. PSYCHIATRIC: Alert and oriented -3. Appropriate affect. Intact judgment and insight. - Labs CBC & Chem 7: 07/02/21 13:30 07/04/21 05:44 Labs: Abnormal Lab Results - Last 24 Hours (Table) 07/04/21 Range/Units 05:44 Sodium 125 L (137-145) mmol/L BUN 5 L (9-20) mg/dL Creatinine 0.39 L (0.66-1.25) mg/dL Assessment and Plan Plan: Assessment: #1. Shortness of breath related to underlying history of COPD, which is chronic, and COPD is inactive and stable at this time #2. Hyponatremia, most likely related to Beer potomania, patient receiving salt tablets, and received a dose of 12 10 #3. Benign essential hypertension #4. History of chronic alcoholism #5. Tobacco dependence syndrome Plan: Continue current medical treatment Today's labs have been noted COPD stable No need for IV steroids Vital signs are stable Hyponatremia management per nephrology I performed a history & physical examination of the patient and discussed their management with my nurse practitioner, Macrina Payne. I reviewed the nurse practitioner's note and agree with the documented findings and plan of care. Lung sounds are positive for diminished breath sounds throughout the lung price. The findings and the impression was discussed with the patient. I attest to the documentation by the nurse practitioner. Time with Patient: Less than 30
--- NOTE | 2021-07-04 17:53 | PN ---
PROGRESS NOTE Patient is seen for followup for hyponatremia. He was started on sodium chloride tabs. Serum sodium initially had not improved and stayed around 125. Patient was given a dose of tolvaptan earlier this morning and repeat sodium did improve to 130. The patient wants to go home. On examination today, blood pressure 93/56, heart rate 67 per minute. He is afebrile. EXAMINATION OF THE HEART: S1 and S2. EXAMINATION OF LUNGS: Decreased breath sounds at the bases. Abdomen is soft, non-tender. Examination of lower extremities shows no evidence of edema. [employer] EXAM: Grossly intact. Labs show sodium 125, potassium 4.3. Repeat sodium came up to 130. ASSESSMENT: 1. Hyponatremia this admission, mostly associated with some degree of SIADH, as urine osmolality is significantly elevated at 688. However, this is not accurate, as this was done after the sodium chloride tabs were started. In any case, patient will continue with the sodium chloride tabs, as his blood pressure remains low. He will need close followup with repeat labs as outpatient in 2-3 days. Cortisol level was not significantly low. It was at 15. 2. Hypertension. Blood pressure is currently low. Will decrease dose of lisinopril. PLAN: Okay to discharge patient on sodium chloride tabs and follow up as outpatient in about one week. MMODL / IJN: [id number] /
[2021-07-05] MEDS ORDERED: lisinopriL 5 MG TAB PO SCH (09:00)
--- NOTE | 2021-07-05 11:30 | P.DS ---
Providers Date of admission: 07/02/21 16:01 Expected date of discharge: 07/04/21 Attending physician: Fabian Garzon MD Consults: 07/02/21 16:15 Consult Physician Urgent Consulting Provider: Kevan Baker Consult Reason/Comments: COPD Do you want consulting provider notified?: Yes 07/02/21 16:52 Consult Physician Routine Consulting Provider: Facundo Infante Consult Reason/Comments: Hyponatremia Do you want consulting provider notified?: Yes Primary care physician: [facility] Hospital Course: Final diagnosis -Shortness of breath: possibly secondary to COPD acute exacerbation -Hyponatremia: Hypervolemic hyponatremia -Macrocytosis possibly secondary to alcoholism -Hypertension -Continued nicotine use: Counseling was provided, nicotine patch was ordered -Chronic alcoholism drinks about 3-4 beers daily -DVT prophylaxis -Full code Discharge disposition Patient is being discharged in a stable condition with guarded prognosis to home. Patient will follow-up with [facility] in the outpatient setting upon discharge. Patient is to also follow-up with nephrology and repeat labs within the next week. Patient will continue on sodium chloride tabs and instructed to continue 1500 mL fluid restriction. Total time taken is greater than 35 minutes. Hospital course Patient is a 65-year-old male with known history of smoking came in with compensative shortness of breath and is being admitted for COPD exacerbation chest x-ray did not show any pneumonia or pulmonary edema patient has a BNP of around 200. Patient has been short of breath for 3-4 days along with cough without any sputum production denied any chest pain. Patient is also hyponatremic patient was hyponatremic in the past as well patient was treated for this in month of April and was believed to be due to decreased solute intake and patient was discharged on salt tablets and was asked to increase her protein intake. Patient's troponins are negative 07/03/2021 Patient is seen and evaluated in follow up this morning and requesting to go home. Patient is awaiting evaluation from pulmonary for COPD along with nephrology for hyponatremia. Sodium is 126 today and will add sodium chloride tablets. Encouraged oral intake. Other labs within normal limits. 07/04/2021 Patient was seen in follow-up and repeat sodium continues to be 125. Patient given a dose of Samsca and continued on sodium chloride tabs and repeat sodium is 130. Discussed with nephrology and patient will need close outpatient follow-up with repeat labs in 2-3 days to monitor sodium and will follow-up outp atient with nephrology along with pulmonary. Patient encouraged and instructed to continue to avoid smoking and avoid alcohol and continue 1500 mL fluid restriction and continue sodium chloride tablets. Patient is very anxious and adamant about going home today. Currently no reports of chest pain, shortness of breath, or palpitations. Patient is afebrile. No reports of nausea or vomiting and patient is tolerating diet. Patient will be discharged home today. Guarded prognosis. GENERAL: The patient is alert and oriented x3, not in any acute distress. Well developed, well nourished. Appears older than stated age. HEENT: Pupils are round and equally reacting to light. EOMI. No scleral icterus. No conjunctival pallor. Normocephalic, atraumatic. No pharyngeal erythema. No thyromegaly. CARDIOVASCULAR: S1 and S2 present. No murmurs, rubs, or gallops. PULMONARY: Decreased air entry into bilateral lung price with no wheezing or rhonchi noted ABDOMEN: Soft, nontender, nondistended, normoactive bowel sounds. No palpable organomegaly. MUSCULOSKELETAL: No joint swelling or deformity. EXTREMITIES: No cyanosis, clubbing, or pedal edema. NEUROLOGICAL: Gross neurological examination did not reveal any focal deficits. SKIN: No rashes. Please refer to medication reconciliation sheet for a list of medications. Patient Condition at Discharge: Fair Plan - Discharge Summary Discharge Rx Participant: Yes New Discharge Prescriptions: New Lactose-Reduced Food [Ensure Plus] 1 can PO BID #90 each Sodium Chloride Tab 1 gm PO TID #90 tab Continue Metoprolol Tartrate [Lopressor] 12.5 mg PO BID Gabapentin [Neurontin] 600 mg PO TID Acetaminophen/Diphenhydramine [Tylenol PM 500-25mg] 1 tab PO HS Discontinued lisinopriL [Zestril] 20 mg PO DAILY Discharge Medication List Metoprolol Tartrate [Lopressor] 12.5 mg PO BID 01/29/14 [History] Gabapentin [Neurontin] 600 mg PO TID 02/18/20 [History] Acetaminophen/Diphenhydramine [Tylenol PM 500-25mg] 1 tab PO HS 07/02/21 [History] Lactose-Reduced Food [Ensure Plus] 1 can PO BID #90 each 07/04/21 [Rx] Sodium Chloride Tab 1 gm PO TID #90 tab 07/04/21 [Rx] Follow up Appointment(s)/Referral(s): Liana Rasmussen MD [STAFF PHYSICIAN] - 07/12/21 10:00 am [facility],Clinic [Primary Care Provider] - 07/13/21 3:30 pm Ambulatory/Diagnostic Orders: Comprehensive Metabolic Panel [LAB.AMB] Time Frame: 3 Days, Location: None Selected Patient Instructions/Handouts: Sodium Chloride (By mouth), Hyponatremia (DC), Fluid Restriction (DC) Activity/Diet/Wound Care/Special Instructions: 1500 mL fluid restriction Activity Limited until follow-up Follow-up with primary care provider upon discharge Follow-up with nephrology outpatient Continue with sodium chloride tablets Continue with oral protein intake Repeat labs in 2-3 days to monitor sodium Discharge Disposition: HOME SELF-CARE
--- NOTE | 2021-07-06 08:17 | CDI ---
Documentation Clarification Form Date: 07/06/2021 08:01:00 AM From: Raine Roberts Admit Date: 07/02/2021 04:01:00 PM Patient Name: Amandeep Garcia Visit Number: [id number] Discharge Date: 07/04/2021 05:25:00 PM ATTENTION: The Clinical Documentation Specialists (CDI) and [facility] Coding Staff appreciate your assistance in clarifying documentation. Please respond to the clarification below the line at the bottom and electronically sign. The CDI & [facility] Coding staff will review the response and follow-up if needed. Please note: Queries are made part of the Legal Health Record. If you have any questions, please contact the author of this message via ITS. Dr. Key, Conflicting documentation has been found in the medical record. Patient with hyponatremia documented as being due to decreased solute intake in H and P. Hyponatremia mostly associated with some degree of SIADH as urine osmolality is significantly elevated at 688, per PN 10/5 and also documented as due to Beer potomania. Patient is an alcoholic As attending physician, please provide clarification. History/Risk Factors: alcoholism, hyponatremia COPD Clinical Indicators: sodium 123 Treatment: Sodium tablets Please clarify which diagnosis is most appropriate: [ ] Hyponatremia associated with SIADH [ x ] Hyponatremia due to decreased solute intake [ ] Hyponatremia due to beer potomania [ ] Other (please specify) [ ] Unable to determine MTDD
--- NOTE | 2021-07-06 08:29 | CDI ---
Documentation Clarification Form Date: 07/06/2021 08:19:00 AM From: Raine Roberts Admit Date: 07/02/2021 04:01:00 PM Patient Name: Amandeep Garcia Visit Number: [id number] Discharge Date: 07/04/2021 05:25:00 PM ATTENTION: The Clinical Documentation Specialists (CDI) and [facility] Coding Staff appreciate your assistance in clarifying documentation. Please respond to the clarification below the line at the bottom and electronically sign. The CDI & [facility] Coding staff will review the response and follow-up if needed. Please note: Queries are made part of the Legal Health Record. If you have any questions, please contact the author of this message via ITS. Dr. Levy Key Conflicting documentation has been found in the medical record. Per H and P and DCS patient has exacerbation of COPD. Per pulmonology, patient has COPD, however based on pulmonology findings and on the ABG, " his COPD does not seem to be relatively active at this point." As attending physician, please provide clarification. H and P and DCS exacerbation of COPD Pulmonology consult COPD does not seem to be relatively active History/Risk Factors: Clinical Indicators: History of epiglottis CA, COPD Treatment: systemic steroids and inhalational treatments Please clarify which diagnosis is most appropriate: [ ] COPD with exacerbation [x ] COPD without exacerbation [ } Severe emphysema [ ] Other (please specify) [ ] Unable to determine MTDD
== END 2021-07-04 17:25 | disposition home or self-care (01) | DRG 641 ==
LOC: EC 12:18 → 5NMEDONC 16:01
PROVIDERS: ADMIT Internal Medicine; ATTEND Internal Medicine
DX: E87.1 Hypo-osmolality and hyponatremia (principal); I42.9 Cardiomyopathy, unspecified; I50.9 Heart failure, unspecified; Z20.822 Contact with and (suspected) exposure to COVID-19; J44.9 Chronic obstructive pulmonary disease, unspecified; I11.0 Hypertensive heart disease with heart failure; K08.109 Complete loss of teeth, unspecified cause, unspecified class; Z71.6 Tobacco abuse counseling; F17.210 Nicotine dependence, cigarettes, uncomplicated; E87.70 Fluid overload, unspecified; G89.29 Other chronic pain; M54.9 Dorsalgia, unspecified; E86.1 Hypovolemia; F10.20 Alcohol dependence, uncomplicated; D75.89 Other specified diseases of blood and blood-forming organs; I83.90 Asymptomatic varicose veins of unspecified lower extremity; Z79.899 Other long term (current) drug therapy; Z80.0 Family history of malignant neoplasm of digestive organs; Z85.21 Personal history of malignant neoplasm of larynx; Z92.3 Personal history of irradiation; Z85.01 Personal history of malignant neoplasm of esophagus; Z87.81 Personal history of (healed) traumatic fracture
CPT/HCPCS: 36415; 36600; 71045; 80048; 82533; 82805; 83880; 83935; 84295; 84484; 85025; 85379; 85610; 85730; 87636; 93005; 94640; 94760; 99285

== ENCOUNTER 2021-07-31 18:46 | Inpatient (IN) | payer OTHER, MEDICAID, MEDICARE ==
[2021-07-31] MEDS ORDERED: SODIUM CHLORIDE 0.9% 1,000 ML IV ONE ×2 (18:55→20:20)
--- NOTE | 2021-07-31 19:03 | ED ---
General Adult HPI - General Stated complaint: Seizure Time Seen by Provider: 07/31/21 18:46 Source: patient, RN notes reviewed, old records reviewed - History of Present Illness Initial comments: This is a 66-year-old male who presents emergency Department after he had a seizure according to his . EMS was called to the house by the time they got there the patient was no longer seizing but he was postictal. states she found him seizing on the ground and it is believed that he sees for less than 5 minutes. According to EMS they think he is a drinker but did not 100% sure. Patient states he does drink beer every day. Patient denies any complaints currently. Patient is alert and oriented 2 at the moment. Patient's is not with the patient so no further history can be gotten from her. EMS stated the patient did have a slight abrasion on the forehead but there was no area of bleeding no skin tears or lacerations noted. Patient denies any recent fever chills. Patient denies any chest pain difficulty breathing or palpitations. Patient denies abdominal pain patient denies nausea vomiting diarrhea. - Related Data Home Medications Medication Instructions Recorded Confirmed Metoprolol Tartrate [Lopressor] 12.5 mg PO BID 01/29/14 07/31/21 Gabapentin [Neurontin] 600 mg PO TID 02/18/20 07/31/21 Acetaminophen/Diphenhydramine 1 tab PO HS 07/02/21 07/31/21 [Tylenol PM 500-25mg] Previous Rx's Medication Instructions Recorded Lactose-Reduced Food [Ensure Plus] 1 can PO BID #90 each 07/04/21 Sodium Chloride Tab 1 gm PO TID #90 tab 07/04/21 Allergies Allergy/AdvReac Type Severity Reaction Status Date / Time No Known Allergies Allergy Verified 07/31/21 19:14 Review of Systems ROS Statement: Those systems with pertinent positive or pertinent negative responses have been documented in the HPI. ROS Other: All systems not noted in ROS Statement are negative. 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 CARDIOMYOPATHY. VARICOSE VEINS. CHRONIC BACK PAIN, DIFFICULTY WALKING DISTANCE OR SITTING, DRY MOUTH. broken ribs from fall History of Any Multi-Drug Resistant Organisms: None Reported Past Surgical History: Back Surgery, Heart Catheterization Additional Past Surgical History / Comment(s): COLONOSCOPY. PAIN CLINIC PROC'S, BACK SURGERY AT [facility] IN [place]. Removed all teeth 2020 Past Anesthesia/Blood Transfusion Reactions: Previous Problems w/ Anesthesia Additional Past Anesthesia/Blood Transfusion Reaction / Comment(s): WITH 2 PAIN PROC WAS AWAKE, PROCEDURE VERY PAINFUL Past Psychological History: No Psychological Hx Reported Smoking Status: Current every day smoker Past Alcohol Use History: Heavy Additional Past Alcohol Use History / Comment(s): Admits to smoking 1 pack per day since he was 14; admits to 3-4 beers daily Past Drug Use History: Marijuana Additional Drug Use History / Comment(s): Admits to daily marijuana use - Past Family History Father Family Medical History: Cancer Additional Family Medical History / Comment(s): Father from colon cancer Mother History Unknown: Yes Family Medical History: No Reported History Additional Family Medical History / Comment(s): Mother , not sure of cause General Exam - General Exam Comments Initial Comments: GENERAL: Patient is well-developed and well-nourished. Patient is nontoxic and well- hydrated and is in mild distress. ENT: Neck is soft and supple. No significant lymphadenopathy is noted. Oropharynx is clear. Moist mucous membranes. Neck has full range of motion without eliciting any pain. EYES: The sclera were anicteric and conjunctiva were pink and moist. Extraocular movements were intact and pupils were equal round and reactive to light. Eyelids were unremarkable. PULMONARY: Unlabored respirations. Good breath sounds bilaterally. No audible rales rhonchi or wheezing was noted. CARDIOVASCULAR: There is a regular rate and rhythm without any murmurs gallops or rubs. ABDOMEN: Soft and nontender with normal bowel sounds. SKIN: Skin is clear with no lesions or rashes and otherwise unremarkable. NEUROLOGIC: Patient is alert and oriented 2. Cranial nerves II through XII are grossly intact. Motor and sensory are also intact. Normal speech, volume and content. Symmetrical smile. MUSCULOSKELETAL: Normal extremities with adequate strength and full range of motion. LYMPHATICS: No significant lymphadenopathy is noted PSYCHIATRIC: Normal psychiatric evaluation. Course Vital Signs 07/31/21 18:50 Temperature 98.3 F Pulse Rate 91 Respiratory 16 Rate Blood Pressure 135/82 O2 Sat by Pulse 100 Oximetry Medical Decision Making - Medical Decision Making EKG shows normal sinus rhythm at 84 bpm NE interval is 174 QRS is 100 QT interval 396 QTC is 467. Patient's EKG shows no ST segment elevation or depression. Patient has no alcohol on board Patient has hadin the emergency department. CT of the head and neck shows no acute abnormality. - Lab Data Result diagrams: 07/31/21 19:15 07/31/21 19:15 Lab Results 07/31/21 07/31/21 Range/Units 19:15 19:15 WBC 6.1 (3.8-10.6) k/uL RBC 3.52 L (4.30-5.90) m/uL Hgb 12.6 L (13.0-17.5) gm/dL Hct 36.4 L (39.0-53.0) % MCV 103.4 H (80.0-100.0) fL MCH 35.8 H (25.0-35.0) pg MCHC 34.6 (31.0-37.0) g/dL RDW 11.9 (11.5-15.5) % Plt Count 210 (150-450) k/uL MPV 7.6 Neutrophils % 89 % Lymphocytes % 5 % Monocytes % 5 % Eosinophils % 1 % Basophils % 0 % Neutrophils # 5.4 (1.3-7.7) k/uL Lymphocytes # 0.3 L (1.0-4.8) k/uL Monocytes # 0.3 (0-1.0) k/uL Eosinophils # 0.0 (0-0.7) k/uL Basophils # 0.0 (0-0.2) k/uL Macrocytosis Slight Sodium 123 L (137-145) mmol/L Potassium 3.5 (3.5-5.1) mmol/L Chloride 93 L (98-107) mmol/L Carbon Dioxide 23 (22-30) mmol/L Anion Gap 7 mmol/L BUN 3 L (9-20) mg/dL Creatinine 0.45 L (0.66-1.25) mg/dL Est GFR (CKD-EPI)AfAm >90 (>60 ml/min/1.73 sqM) Est GFR (CKD-EPI)NonAf >90 (>60 ml/min/1.73 sqM) Glucose 101 H (74-99) mg/dL Calcium 8.7 (8.4-10.2) mg/dL Magnesium 2.0 (1.6-2.3) mg/dL Total Bilirubin 0.3 (0.2-1.3) mg/dL AST 41 (17-59) U/L ALT 25 (4-49) U/L Alkaline Phosphatase 85 (38-126) U/L Total Protein 6.2 L (6.3-8.2) g/dL Albumin 3.7 (3.5-5.0) g/dL Serum Alcohol <10 mg/dL Disposition Clinical Impression: New onset seizure, Hyponatremia, Alcohol abuse Disposition: ADMITTED IP TO THIS [facility] Instructions (If sedation given, give patient instructions): Seizure/Epilepsy Discharge Instructions & Follow-Up Referrals: [facility],Clinic [Primary Care Provider] - 1-2 days Time of Disposition: 20:17
[2021-07-31 19:25] LABS: Basophils % (A) 0 %; Eosinophils % (A) 1 %; HCT 36.4 % (39.0-53.0); HGB 12.6 gm/dL (13.0-17.5); Lymphocytes # (A) 0.3 k/uL (1.0-4.8); Lymphocytes % (A) 5 %; MCH 35.8 pg (25.0-35.0); MCHC 34.6 g/dL (31.0-37.0); MCV 103.4 fL (80.0-100.0); Macrocytosis Slight; Mean Platelet Volume 7.6; Monocytes # (A) 0.3 k/uL (0-1.0); Monocytes % (A) 5 %; Neutrophils # (A) 5.4 k/uL (1.3-7.7); Neutrophils % (A) 89 %; Platelet Count 210 k/uL (150-450); RBC 3.52 m/uL (4.30-5.90); RDW 11.9 % (11.5-15.5); WBC 6.1 k/uL (3.8-10.6)
[2021-07-31 19:35] LABS: ALT 25 U/L (4-49); AST 41 U/L (17-59); African American GFR (CKD) >90 (>60 ml/min/1.73 sqM); Albumin 3.7 g/dL (3.5-5.0); Alcohol <10 mg/dL; Alkaline Phosphatase 85 U/L (38-126); Anion Gap 7 mmol/L; Blood Urea Nitrogen 3 mg/dL (9-20); Calcium 8.7 mg/dL (8.4-10.2); Carbon Dioxide 23 mmol/L (22-30); Chloride 93 mmol/L (98-107); Glucose 101 mg/dL (74-99); Non-African American GFR(CKD) >90 (>60 ml/min/1.73 sqM); Potassium 3.5 mmol/L (3.5-5.1); Sodium 123 mmol/L (137-145); Total Bilirubin 0.3 mg/dL (0.2-1.3); Total Protein 6.2 g/dL (6.3-8.2)
--- NOTE | 2021-07-31 19:57 | CT ---
EXAMINATION TYPE: CT brain cspine wo con DATE OF EXAM: 07/31/2021 COMPARISON: 05/17/2021 HISTORY: fall, etoh? CT DLP: 1247.6 mGycm Automated exposure control for dose reduction was used. TECHNIQUE: CT scan of the head and cervical spine are performed without contrast. FINDINGS: There is no acute intracranial hemorrhage, mass effect, or midline shift identified. The ventricles and sulci are within normal limits in size. The globes are intact and the visualized sin uses are clear. Cervical spine is visualized in its entirety from C1 through upper thoracic levels and demonstrates s atisfactory alignment without evidence of acute fracture or dislocation. Prevertebral soft tissue ap pears within normal limits. The C1-C2 articulation is unremarkable. IMPRESSION: 1. There is no acute fracture or dislocation evident in the cervical spine. 2. No acute intracranial hemorrhage, mass effect, or midline shift is seen.
[2021-07-31] MEDS ORDERED: THIAMINE 100 MG/ML 2 ML VIAL IM STA (20:20)
[2021-07-31] MEDS ORDERED: LORazepam 2 MG/ML INJ IV PRN ×3 (20:20)
[2021-07-31 20:33] LABS: Appearance,Urine Clear (Clear); Bilirubin,Urine Negative (Negative); Blood,Urine Negative (Negative); Color,Urine Light Yellow; Glucose,Urine (UA) Negative (Negative); Ketones,Urine Negative (Negative); Leukocyte Esterase,Urine Negative (Negative); Nitrite,Urine Negative (Negative); Protein,Urine Negative (Negative); Specific Gravity,Urine 1.005 (1.001-1.035); Urobilinogen,Urine <2.0 mg/dL (<2.0)
[2021-07-31 20:48] LABS: Amphetamine Screen,Urine Not Detected (NotDetected); Barbiturate Screen,Urine Not Detected (NotDetected); Benzodiazepines Screen,Urine Not Detected (NotDetected); Cocaine Screen,Urine Not Detected (NotDetected); Methadone Screen, Urine Not Detected (NotDetected); Opiate Screen,Urine Not Detected (NotDetected); Oxycodone Screen, Urine Not Detected (NotDetected); Phencyclidine Screen,Urine Not Detected (NotDetected); Tricyclic Antidepressant,Urine Not Detected (NotDetected); Urn Cannabinoid Scrn Detected (NotDetected)
[2021-08-01] MEDS ORDERED: MELATONIN 3 MG TABLET PO PRN (02:26)
[2021-08-01] MEDS ORDERED: ACETAMINOPHEN TAB 325 MG TAB PO PRN (02:27)
[2021-08-01] MEDS: THIAMINE 100 MG TAB PO SCH ×2 (08:38→17:12)
[2021-08-01 10:02] LABS: Basophils % (A) 0 %; Eosinophils % (A) 0 %; HCT 37.5 % (39.0-53.0); HGB 12.8 gm/dL (13.0-17.5); Lymphocytes # (A) 0.4 k/uL (1.0-4.8); Lymphocytes % (A) 5 %; MCH 35.5 pg (25.0-35.0); MCHC 34.1 g/dL (31.0-37.0); MCV 104.1 fL (80.0-100.0); Macrocytosis Slight; Mean Platelet Volume 7.3; Monocytes # (A) 0.4 k/uL (0-1.0); Monocytes % (A) 4 %; Neutrophils # (A) 7.7 k/uL (1.3-7.7); Neutrophils % (A) 89 %; Platelet Count 231 k/uL (150-450); RBC 3.61 m/uL (4.30-5.90); WBC 8.7 k/uL (3.8-10.6)
[2021-08-01 11:08] LABS: African American GFR (CKD) >90 (>60 ml/min/1.73 sqM); Anion Gap 7 mmol/L; Blood Urea Nitrogen <2 mg/dL (9-20); Calcium 8.9 mg/dL (8.4-10.2); Carbon Dioxide 24 mmol/L (22-30); Chloride 93 mmol/L (98-107); Glucose 134 mg/dL (74-99); Magnesium 1.8 mg/dL (1.6-2.3); Non-African American GFR(CKD) >90 (>60 ml/min/1.73 sqM); Potassium 3.4 mmol/L (3.5-5.1); Sodium 124 mmol/L (137-145)
--- NOTE | 2021-08-01 12:35 | P.HPIM ---
History of Present Illness H&P Date: 08/01/21 This is a pleasant 66-year-old male who presented to the emergency room yesterday after patient's fount the patient on the floor after appeared to be a seizure as he was postictal. As of the bedside and states that she is unsure how long he was on the floor and she was outside. Patient states that he was on his way to get a beer and he woke up on the floor he is unsure what happened. He did hit his head he has an abrasion to his left forehead. Head cervical spine CT is negative for acute fracture or dislocation evident cervical spine. There is no acute intracranial hemorrhage mass effect or midline shift. 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 Additionally he has a history of heart cath, back surgery in [place]. Patient is a daily drinker for many years, he states he drinks 5-6 beers per day. Patient also reports marijuana smoking up to 4 to 5 times per day, He also smokes about 1 pack of cigarettes per day. Patient does have a history of seizures. He was followed by his PCP at the [facility] 2 weeks ago and his sodium level was 120 at that time, and he was started on sodium bicarbonate tablets. Patient is pending a follow- up with nephrology in the office. Additional medications include metoprolol 12.5 twice a day and gabapentin 600 mg by mouth 3 times a day. His sodium level today on admit was 123. Potassium 2.5, creatinine 0.45, glucose is 101. Hgb is 12.6, white blood cell count 6.1. Urinalysis is within normal limits, toxicology is positive for marijuana as expected. Alcohol level is less than 10 on admission. Covid was negative. Vital signs include a heart rate of 96, blood pressure 138/75. He is afebrile and on room air. Patient was admitted for evaluation for possible seizure activity with a neurology consult as well as fluids. REVIEW OF SYSTEMS: CONSTITUTIONAL: No fever, no malaise, no fatigue. HEENT: No recent visual problems or hearing problems. Denied any sore throat. CARDIOVASCULAR: No chest pain, orthopnea, PND, no palpitations, no syncope. PULMONARY: No shortness of breath, no cough, no hemoptysis. GASTROINTESTINAL: No diarrhea, no nausea, no vomiting, no abdominal pain. NEUROLOGICAL: No headaches, no weakness, no numbness. HEMATOLOGICAL: Denies any bleeding or petechiae. GENITOURINARY: Denies any burning micturition, frequency, or urgency. MUSCULOSKELETAL/RHEUMATOLOGICAL: Denies any joint pain, swelling, or any muscle pain. ENDOCRINE: Denies any polyuria or polydipsia. The rest of the 14-point review of systems is negative. PHYSICAL EXAMINATION: GENERAL: The patient is alert and oriented x3, not in any acute distress. Well developed, well nourished. HEENT: Pupils are round and equally reacting to light. EOMI. No scleral icterus. No conjunctival pallor. Normocephalic, atraumatic. No pharyngeal erythema. No thyromegaly. CARDIOVASCULAR: S1 and S2 present. No murmurs, rubs, or gallops. PULMONARY: Chest is clear to auscultation, no wheezing or crackles. ABDOMEN: Soft, nontender, nondistended, normoactive bowel sounds. No palpable organomegaly. MUSCULOSKELETAL: No joint swelling or deformity. EXTREMITIES: No cyanosis, clubbing, or pedal edema. NEUROLOGICAL: Gross neurological examination did not reveal any focal deficits. SKIN: Abrasion to left forehead. Assessment and plan -Possible seizure, patient is chronically hyponatremic as well as daily alcohol abuse. Last drink was yesterday however alcohol level on admission was less than 10. Workup per neurology, EEG ordered. Hyponatremia hypovolemic due to decreased oral intake, most likely beer potomania, hold sodium bicarbonate tablets and treat with normal saline infusion. 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 CARDIOMYOPATHY. VARICOSE VEINS. CHRONIC BACK PAIN, DIFFICULTY WALKING DISTANCE OR SITTING, DRY MOUTH. broken ribs from fall History of Any Multi-Drug Resistant Organisms: None Reported Past Surgical History: Back Surgery, Heart Catheterization Additional Past Surgical History / Comment(s): COLONOSCOPY. PAIN CLINIC PROC'S, BACK SURGERY AT [facility] IN [place]. Removed all teeth 2020 Past Anesthesia/Blood Transfusion Reactions: Previous Problems w/ Anesthesia Additional Past Anesthesia/Blood Transfusion Reaction / Comment(s): WITH 2 PAIN PROC WAS AWAKE, PROCEDURE VERY PAINFUL Past Psychological History: No Psychological Hx Reported Smoking Status: Current every day smoker Past Alcohol Use History: Heavy Additional Past Alcohol Use History / Comment(s): Admits to smoking 1 pack per day since he was 14; admits to 3-4 beers daily Past Drug Use History: Marijuana Additional Drug Use History / Comment(s): Admits to daily marijuana use - Past Family History Father Family Medical History: Cancer Additional Family Medical History / Comment(s): Father from colon cancer Mother History Unknown: Yes Family Medical History: No Reported History Additional Family Medical History / Comment(s): Mother , not sure of cause Medications and Allergies Home Medications Medication Instructions Recorded Confirmed Type Metoprolol Tartrate [Lopressor] 12.5 mg PO BID 01/29/14 07/31/21 History Gabapentin [Neurontin] 600 mg PO TID 02/18/20 07/31/21 History Acetaminophen/Diphenhydramine 1 tab PO HS 07/02/21 07/31/21 History [Tylenol PM 500-25mg] Lactose-Reduced Food [Ensure Plus] 1 can PO BID #90 each 07/04/21 07/31/21 Rx Sodium Chloride Tab 1 gm PO TID #90 tab 07/04/21 07/31/21 Rx Allergies Allergy/AdvReac Type Severity Reaction Status Date / Time No Known Allergies Allergy Verified 07/31/21 19:14 Physical Exam Vitals: Vital Signs Temp Pulse Pulse Resp BP BP Pulse Ox 08/01/21 04:47 98 F 96 16 138/75 100 08/01/21 00:25 98.0 F 82 16 128/78 98 07/31/21 20:00 90 16 130/77 98 07/31/21 18:50 98.3 F 91 16 135/82 100 Intake and Output 07/31/21 08/01/21 08/01/21 22:59 06:59 14:59 Intake Total 600 480 Balance 600 480 Intake: Intake, IV Titration 600 Amount Sodium Chloride 0.9% 1, 600 000 ml @ 75 mls/hr IV . [id number] Rx#:[id number] Oral 480 Other: Weight 47.627 kg 47.627 kg Results CBC & Chem 7: 08/01/21 09:29 08/01/21 09:29 Labs: Abnormal Lab Results - Last 24 Hours (Table) 07/31/21 07/31/21 07/31/21 Range/Units 19:15 19:15 20:28 RBC 3.52 L (4.30-5.90) m/uL Hgb 12.6 L (13.0-17.5) gm/dL Hct 36.4 L (39.0-53.0) % MCV 103.4 H (80.0-100.0) fL MCH 35.8 H (25.0-35.0) pg Lymphocytes # 0.3 L (1.0-4.8) k/uL Sodium 123 L (137-145) mmol/L Chloride 93 L (98-107) mmol/L BUN 3 L (9-20) mg/dL Creatinine 0.45 L (0.66-1.25) mg/dL Glucose 101 H (74-99) mg/dL Total Protein 6.2 L (6.3-8.2) g/dL U Marijuana (THC) Screen Detected H (NotDetected) Thrombosis Risk Factor Assmnt - Choose All That Apply Any of the Below Risk Factors Present?: No Other Risk Factors: Yes Each Risk Factor Represents 2 Points: Age 61-74 years Thrombosis Risk Factor Assessment Total Risk Factor Score: 2 Thrombosis Risk Factor Assessment Level: Low Risk Assessment and Plan Time with Patient: Greater than 30
[2021-08-01] MEDS ORDERED: Magnesium Replacement Protocol 1 EACH MISC MISCELLANE PRN (12:36)
--- NOTE | 2021-08-01 13:03 | EEG ---
ELECTROENCEPHALOGRAM REPORT DATE OF SERVICE: 08/01/2021 PREAMBLE: This is a 66-year-old male with new onset seizure. EEG FINDINGS: This is a 21 channel digital EEG recorded with video component, utilizing 10/20 international system with referential and bipolar montages. Background consists of well-developed, moderately well regulated, mixed frequencies of 8-9 hertz alpha, mixed with some 6-7 hertz theta activity seen in bihemispheric region. The background is reactive to eye opening and closing. Photic driving response was not clearly seen. Different stages of sleep were not seen. No focal or generalized epileptiform activity was seen. IMPRESSION: This is a mildly abnormal EEG due to background slowing of mild degree. This is suggestive of generalized cerebral dysfunction as can be seen with toxic metabolic encephalopathy or due to medication effect. No epileptiform activity was seen. MMMARTELL / YAMILETN: [id number] / MTDD
--- NOTE | 2021-08-01 13:16 | P.CNNES ---
History of Present Illness Consult date: 08/01/21 Requesting physician: Chace Armenta Reason for Consult: New onset seizure History of Present Illness: Patient is a 66-year-old male with history of epiglottic cancer in 2019, status post radiation therapy chronic chronic low back pain, heart failure, hypertension came to the hospital by ambulance yesterday at 6:46 PM. EMS flow sheet not available in the chart. Patient states that he had a seizure at home witnessed by his , who called the ambulance and was brought to the hospital. Patient is a dental is, therefore did not have any tongue bite. Denies any loss of control of urine. He denies any previous warning before the seizure. Patient claims he had a seizure 6 months ago as well. Patient at present drinks 6-8 beers per day since age 16. He still drinks and states that is not interested in quitting alcoholism at all. He does not drink any hard liquor. He smokes pot, and smokes one pack per day since he was young. Patient's blood pressure on arrival was 135/82, pulse rate 91, temperature 98.3. Computed tomography scan of head showed no acute intracranial hemorrhage, mass effect or midline shift. CT of the cervical spine showed no acute fracture or dislocation evident in the cervical spine. EKG shows normal sinus rhythm, right superior axis deviation. Incomplete right bundle-branch block. Patient's blood test shows normal WBC 6.1 hemoglobin 12.6, with elevated MCV 103.4. Platelets are normal tone and 10. Sodium 123 (patient has history of lower sodium levels in the past, 122 on 05/21/2021 and 120 on 03/20/2021, but did not have any history of seizures in the past), potassium 3.5, normal renal functions. Normal hepatic panel. UA is negative, urine drug screen positive for marijuana. Blood alcohol level is negative. [place] virus PCR negative. Patient's last hemogl obin A1c 5.3 on 05/18/2021. B12 899, folate > 24.0. TSH normal. Patient was recently seen by Dr. Jayden Cunningham on 05/19/2021 for encephalopathy, which was felt to be related to hyponatremia from chronic alcoholism, competent of alcohol withdrawal and medication effect. Patient had delirium with psy chosis. Patient also has history of epiglottic cancer in 2019 status post radiation therapy. Chronic lower back pain. Patient had an EEG and 05/18/2021 which was abnormal EEG. Background slowing is suggestive of mild encephalopathy. There are no focal slowing, epileptiform discharges or seizure on the EEG. Excessive beta activity is due to medication effect. Clinical correlation is recommended. Review of Systems Completely unremarkable. Patient denies any headache problem with the vision hoarseness, sore throat, dysphagia. Denies any numbness tingling. Denies any abdominal pain, nausea vomiting diarrhea. No fever or chills. No rash. No os of control of urine. No incontinence. 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 CARDIOMYOPATHY. VARICOSE VEINS. CHRONIC BACK PAIN, DIFFICULTY WALKING DISTANCE OR SITTING, DRY MOUTH. broken ribs from fall History of Any Multi-Drug Resistant Organisms: None Reported Past Surgical History: Back Surgery, Heart Catheterization Additional Past Surgical History / Comment(s): COLONOSCOPY. PAIN CLINIC PROC'S, BACK SURGERY AT [facility] IN [place]. Removed all teeth 2020 Past Anesthesia/Blood Transfusion Reactions: Previous Problems w/ Anesthesia Additional Past Anesthesia/Blood Transfusion Reaction / Comment(s): WITH 2 PAIN PROC WAS AWAKE, PROCEDURE VERY PAINFUL Past Psychological History: No Psychological Hx Reported Smoking Status: Current every day smoker Past Alcohol Use History: Heavy Additional Past Alcohol Use History / Comment(s): Admits to smoking 1 pack per day since he was 14; admits to 3-4 beers daily Past Drug Use History: Marijuana Additional Drug Use History / Comment(s): Admits to daily marijuana use - Past Family History Father Family Medical History: Cancer Additional Family Medical History / Comment(s): Father from colon cancer Mother History Unknown: Yes Family Medical History: No Reported History Additional Family Medical History / Comment(s): Mother , not sure of cause Medications and Allergies Home Medications Medication Instructions Recorded Confirmed Type Metoprolol Tartrate [Lopressor] 12.5 mg PO BID 01/29/14 07/31/21 History Gabapentin [Neurontin] 600 mg PO TID 02/18/20 07/31/21 History Acetaminophen/Diphenhydramine 1 tab PO HS 07/02/21 07/31/21 History [Tylenol PM 500-25mg] Lactose-Reduced Food [Ensure Plus] 1 can PO BID #90 each 07/04/21 07/31/21 Rx Sodium Chloride Tab 1 gm PO TID #90 tab 07/04/21 07/31/21 Rx Allergies Allergy/AdvReac Type Severity Reaction Status Date / Time No Known Allergies Allergy Verified 07/31/21 19:14 Physical Examination - Vital Signs Vital Signs: Vital Signs Temp Pulse Pulse Resp BP BP Pulse Ox 08/01/21 04:47 98 F 96 16 138/75 100 08/01/21 00:25 98.0 F 82 16 128/78 98 07/31/21 20:00 90 16 130/77 98 07/31/21 18:50 98.3 F 91 16 135/82 100 Intake and Output 07/31/21 08/01/21 08/01/21 22:59 06:59 14:59 Intake Total 600 480 Balance 600 480 Intake: Intake, IV Titration 600 Amount Sodium Chloride 0.9% 1, 600 000 ml @ 75 mls/hr IV . [id number] ONE Rx#:[id number] Oral 480 Other: Weight 47.627 kg 47.627 kg Patient is a young-looking elderly male, slightly cachectic, in no acute distress. Patient is alert awake oriented to time place and person. Speech and language functions are normal. Attention, concentration and fund of knowledge is adequate. On cranial examination, pupils are round and reacting to light, visual price are full on confrontation, extraocular muscles are intact with no nystagmus. Face is symmetric, tongue protrudes to the midline. Palatal elevation and sensation normal, hearing and shoulder shrug normal, facial sensation normal. Shoulder shrug normal. On muscle strength testing, there is no pronator drift and the strength is normal in arms and legs distally and proximally. Hip flexion 5-bilaterally. Deep tendon reflexes are 2+ throughout and plantars downgoing. Sensory to touch is equal with no neglect. Cerebellar function showed no ataxia for [id number] testing. No dysdiadochokinesia. Tone of muscles normal. Bulk is overall decreased, he is cachectic. Gait deferred. On general examination, there is no carotid bruit or murmur, S1-S2 audible. Abdomen is soft nontender. Chest is clear. Peripheral pulses are present. No edema. Results - Laboratory Findings CBC and BMP: 08/01/21 09:29 08/01/21 09:29 Abnormal Lab Findings: Abnormal Labs 07/31/21 07/31/21 07/31/21 19:15 19:15 20:28 RBC 3.52 L Hgb 12.6 L Hct 36.4 L MCV 103.4 H MCH 35.8 H Lymphocytes # 0.3 L Sodium 123 L Potassium Chloride 93 L BUN 3 L Creatinine 0.45 L Glucose 101 H Total Protein 6.2 L U Marijuana (THC) Screen Detected H 08/01/21 08/01/21 09:29 09:29 RBC 3.61 L Hgb 12.8 L Hct 37.5 L MCV 104.1 H MCH 35.5 H Lymphocytes # 0.4 L Sodium 124 L Potassium 3.4 L Chloride 93 L BUN <2 L Creatinine 0.35 L Glucose 134 H Total Protein U Marijuana (THC) Screen Assessment and Plan Assessment: * New onset seizure. Patient states he had a similar seizure 6 months ago as well. The seizure could be related to go alcohol withdrawal, versus hyponatremia. Patient however had history of hyponatremia for quite some time, even lower sodium than how he has presented this time. * Chronic Hyponatremia * Macrocytosis likely related to alcohol use * Chronic alcohol use * History of epiglottic cancer in 2019 status post radiation therapy. * Heart failure, EF 50-55% * Hypertension * Nicotine use, marijuana use Plan: * Patient underwent EEG today, which was mildly abnormal due to background slowing of mild degree. This is suggestive of generalized cerebral dysfunction as can be seen with metabolic encephalopathy or medication effect. No epileptiform activity was seen. * Patient had an MRI of the brain without contrast on 05/18/2021, which was unremarkable. Mild diffuse age-related cerebral atrophy and [id number] chronic small vessel ischemic changes are thought to present. * I discussed with patient about abstinence from alcohol, but patient completely declined. He states he had a good life, and he enjoys his drinking, use of pot, and he will not stop drinking. We will empirically place him on Keppra 500 mg twice a day for seizure prophylaxis, as this is a second seizure. * Patient's last hemoglobin A1c 5.3 on 05/18/2021. B12 899, folate > 24.0. TSH normal. * Patient's sodium this morning is 124. Would defer IM to address hyponatremia. * Patient was informed of [place] state law of no driving unless seizure free for 6 months, climbing ladders, operate dangerous machinery or unsupervised swimming. * Watch for alcohol withdrawals.
[2021-08-01 13:31] VITALS: BMI 16.0
[2021-08-01] MEDS: PANTOPRAZOLE 40 MG/10 ML VIAL IVP SCH (14:08)
[2021-08-01] MEDS: MAGNESIUM SULFATE-D5W PMX 1 GM in DEXTROSE/WATER 1 100ML.BAG IVPB SCH ×2 (14:09→15:48)
[2021-08-01] MEDS: METOPROLOL TARTRATE 12.5 MG TAB PO SCH ×2 (14:09→21:02)
[2021-08-01] MEDS: levETIRAcetam 500 MG TAB PO SCH ×2 (14:10→21:02)
[2021-08-01] MEDS: SODIUM CHLORIDE 0.9% 1,000 ML IV SCH ×2 (15:49→21:57)
[2021-08-01] MEDS: NICOTINE 14MG/24HR PATCH TRANSDERM SCH (15:49)
[2021-08-02 04:56] VITALS: BP 135/87; PULSE 73; RESP 16; TEMP 98.1
[2021-08-02 07:21] LABS: Basophils % (A) 1 %; Eosinophils # (A) 0.1 k/uL (0-0.7); Eosinophils % (A) 1 %; HCT 40.7 % (39.0-53.0); HGB 13.5 gm/dL (13.0-17.5); Lymphocytes # (A) 0.6 k/uL (1.0-4.8); Lymphocytes % (A) 8 %; MCH 34.9 pg (25.0-35.0); MCHC 33.1 g/dL (31.0-37.0); MCV 105.5 fL (80.0-100.0); Macrocytosis Slight; Mean Platelet Volume 7.5; Monocytes # (A) 0.4 k/uL (0-1.0); Monocytes % (A) 5 %; Neutrophils # (A) 6.6 k/uL (1.3-7.7); Neutrophils % (A) 83 %; Platelet Count 234 k/uL (150-450); RBC 3.86 m/uL (4.30-5.90); RDW 11.9 % (11.5-15.5); WBC 7.9 k/uL (3.8-10.6)
[2021-08-02] MEDS: NICOTINE 14MG/24HR PATCH TRANSDERM SCH (09:07)
[2021-08-02] MEDS: PANTOPRAZOLE 40 MG/10 ML VIAL IVP SCH (09:07)
[2021-08-02] MEDS: SODIUM CHLORIDE 0.9% 1,000 ML IV SCH (09:07)
[2021-08-02] MEDS: THIAMINE 100 MG TAB PO SCH (09:07)
[2021-08-02] MEDS: METOPROLOL TARTRATE 12.5 MG TAB PO SCH (09:07)
[2021-08-02] MEDS: levETIRAcetam 500 MG TAB PO SCH (09:07)
[2021-08-02 11:14] LABS: African American GFR (CKD) 128.2 (60.0-200.0); Anion Gap 11.8 mmol/L (4.00-12.00); BUN/Creat Ratio 5.07 Ratio (12.00-20.00); Blood Urea Nitrogen 2.6 mg/dL (9.0-27.0); Calcium 8.5 mg/dL (8.7-10.3); Carbon Dioxide 24.1 mmol/L (21.6-31.8); Non-African American GFR(CKD) 110.6 (60.0-200.0); Potassium 3.8 mmol/L (3.5-5.5)
--- NOTE | 2021-08-02 15:09 | P.DS ---
Providers Date of admission: 07/31/21 20:20 Attending physician: Juaquin Capps Consults: 07/31/21 20:20 Consult Physician Urgent Consulting Provider: Charbel Gomez Consult Reason/Comments: New-onset seizure Do you want consulting provider notified?: Yes Primary care physician: [facility] Hospital Course: Final Diagnosis -Possible seizure, patient is chronically hyponatremic as well as daily alcohol abuse. Last drink was yesterday however alcohol level on admission was less than 10. EEG was negative for any epileptiform activity. Most like seizure related to hyponatremia and chronic alcohol abuse. Hyponatremia hypovolemic due to decreased oral intake, most likely beer potomania, sodium level 125 today which is chronically normal for patient he can follow-up with his PCP. -Generalized weakness and medical debility -COPD, not in acute exacerbation -History of congestive heart failure, not in acute exacerbation History of hypertension, continue metoprolol History of epiglottis cancer History of heart catheterization History of back surgery Daily alcohol abuse, CIAL protocol Chronic nicotine dependence, -Daily marijuana abuse Discharge Disposition Patient is discharged home with home care services, updated on plan of care. Patient was educated on [place] law Re: No driving until he is seizure free for 6 months. Patient will follow up with his PCP as well as nephrology and neurology outpatient. Sodium level was discussed with patient. He is refusing IV fluids and is refusing to stay in this hospital for another night. He wishes to be discharged home. Prognosis very poor for this patient if he continues to drink alcohol. He denies the need for alcohol cessation at this time. Hospital Course This is a 66-year-old gentleman who presented to the emergency room yesterday after the patient's found him on the floor for an unknown period of time possibly around 6 minutes and patient was seizing. He did hit his head and his abrasion to his left forehead, had cervical spine CT is negative for acute fracture or dislocation upper and cervical spine. There is no acute intracranial hemorrhage with mass effect or midline shift. Patient has a past medical history significant for heart failure, hypertension, colon cancer January 2018 with radiation, cardio myopathy, chronic back pain, he does use a walker when he is a home. Patient additionally has a history of heart cath and back surgery in [place]. Patient is a daily drinker for many. She states she drinks 5-6 beers per day he does report smoking marijuana up to 4-5 times per day and also smokes one pack of cigarettes per day. Patient states that he had one seizure 6 months ago as well. Patient was recently seen at his PCP if the LV to undergo a sodium level was 120 that time and he was started on sodium bicarbonate tablets. Patient is still pending a follow-up with the nephrology office after his previous admission. We discontinue the sodium tablets this hospital stay and to the patient with IV saline and his potassium improved to 125. Potassium was 2.5 at admission, replace per protocol. Urinalysis is normal. Toxicology was positive for marijuana alcohol level was less than 10 on admission. Vital signs remained stable,: Negative. Patient was evaluated for possible seizure activity with a consultation neurology. Patient had an EEG completed that was negative for any epileptiform activity. He was evaluated by neurology who did recommend possibly starting the patient on Keppra 500 mg by mouth twice a day for seizure prophylaxis. We discussed with neurology and feel that this is more likely a seizure due to hyponatremia as well as chronic alcohol abuse. Neurology would like patient to follow-up outpatient and was okay with not starting Keppra this time. We will resume the sodium chloride tablets on discharge and patient Up with neurology, PCP and nephrology. Patient denies a desire for alcohol cessation as well as tobacco cessation. He states he is continuing to smoke marijuana. We did discuss in extent with patient the risks of discharging with a sodium level of 125 and the risk for seizure activity as well as the health benefits of alcohol cessation. Patient will prefer to be discharged home on his sodium chloride tablets and to follow-up in the office with his primary care.\ 08/02/2021 Patient is evaluated today sitting in the chair. He is alert and oriented 3 his focal neurological exam is negative. He was evaluated by neurology who recommended starting patient on Keppra 500 mg by mouth twice a day prophylactically for seizures. Patient did state that he had a seizure 6 months ago as well as one yesterday. He does not express a desire for alcohol cessation. He states that he is going to continue drinking and smoking cigarettes and smoking marijuana. It was discussed with patient the implications regarding sodium level and drinking. Vital signs are stable today, sodium has improved to 125. Magnesium is 2 today potassium 3.8. We will hold off on starting Keppra for now after speaking with neurology services. Patient Condition at Discharge: Fair Plan - Discharge Summary Discharge Rx Participant: Yes New Discharge Prescriptions: New Thiamine [Vitamin B-1] 100 mg PO BID-W/MEALS #60 tab Sodium Chloride Tab 1 gm PO TID #90 tablet Melatonin 6 mg PO HS PRN tablet PRN Reason: Insomnia Continue Metoprolol Tartrate [Lopressor] 12.5 mg PO BID Gabapentin [Neurontin] 600 mg PO TID Lactose-Reduced Food [Ensure Plus] 1 can PO BID #90 each Acetaminophen/Diphenhydramine [Tylenol PM 500-25mg] 1 tab PO HS Discontinued Sodium Chloride Tab 1 gm PO TID #90 tab Discharge Medication List Metoprolol Tartrate [Lopressor] 12.5 mg PO BID 01/29/14 [History] Gabapentin [Neurontin] 600 mg PO TID 02/18/20 [History] Acetaminophen/Diphenhydramine [Tylenol PM 500-25mg] 1 tab PO HS 07/02/21 [History] Lactose-Reduced Food [Ensure Plus] 1 can PO BID #90 each 07/04/21 [Rx] Melatonin 6 mg PO HS PRN tablet 08/02/21 [Rx] Sodium Chloride Tab 1 gm PO TID #90 tablet 08/02/21 [Rx] Thiamine [Vitamin B-1] 100 mg PO BID-W/MEALS #60 tab 08/02/21 [Rx] Follow up Appointment(s)/Referral(s): Modesto Ulloa MD [REFERRING] - 1 Week [facility] [NON-STAFF] - 1 Week [facility]Clinic [Primary Care Provider] - 1-2 days Ambulatory/Diagnostic Orders: Basic Metabolic Panel [LAB.AMB] Time Frame: 2 Days, Location: None Selected Patient Instructions/Handouts: Seizure/Epilepsy Discharge Instructions & Follow-Up, Thiamine (By mouth) Discharge Disposition: HOME WITH HOME HEALTH SERVICES
== END 2021-08-02 13:19 | disposition home health service (06) | DRG 101 ==
LOC: EC 18:46 → 5NMEDONC 20:20
PROVIDERS: ADMIT Hospitalist; ATTEND Hospitalist
DX: R56.9 Unspecified convulsions (principal); I42.9 Cardiomyopathy, unspecified; E87.1 Hypo-osmolality and hyponatremia; Z20.822 Contact with and (suspected) exposure to COVID-19; I11.0 Hypertensive heart disease with heart failure; I50.9 Heart failure, unspecified; M54.9 Dorsalgia, unspecified; G89.29 Other chronic pain; D75.89 Other specified diseases of blood and blood-forming organs; I45.10 Unspecified right bundle-branch block; W19.XXXA Unspecified fall, initial encounter; S00.81XA Abrasion of other part of head, initial encounter; J44.9 Chronic obstructive pulmonary disease, unspecified; R53.81 Other malaise; E86.1 Hypovolemia; F17.210 Nicotine dependence, cigarettes, uncomplicated; Z79.899 Other long term (current) drug therapy; Z85.21 Personal history of malignant neoplasm of larynx; Z98.890 Other specified postprocedural states; Z80.0 Family history of malignant neoplasm of digestive organs; Z85.038 Personal history of other malignant neoplasm of large intestine; Z92.3 Personal history of irradiation
CPT/HCPCS: 36415; 70450; 72125; 80048; 80053; 80306; 80320; 81003; 83735; 85025; 87635; 93005; 95816; 96360; 99285

== ENCOUNTER 2021-08-22 15:04 | Inpatient (IN) | payer OTHER, MEDICAID, MEDICARE ==
[2021-08-22] MEDS ORDERED: levETIRAcetam IV 1,000 MG in SALINE 1 100ML.BAG IVPB STA (16:54)
[2021-08-22 17:44] LABS: Appearance,Urine Clear (Clear); Bilirubin,Urine Negative (Negative); Blood,Urine Negative (Negative); Color,Urine Light Yellow; Glucose,Urine (UA) Negative (Negative); Ketones,Urine Negative (Negative); Leukocyte Esterase,Urine Negative (Negative); Nitrite,Urine Negative (Negative); PH, Urine 7.5 (5.0-8.0); Protein,Urine Negative (Negative); Specific Gravity,Urine 1.005 (1.001-1.035); Urobilinogen,Urine <2.0 mg/dL (<2.0)
[2021-08-22 17:45] LABS: Basophils % (A) 1 %; Eosinophils # (A) 0.1 k/uL (0-0.7); Eosinophils % (A) 1 %; HCT 43.1 % (39.0-53.0); HGB 14.5 gm/dL (13.0-17.5); Lymphocytes # (A) 0.6 k/uL (1.0-4.8); Lymphocytes % (A) 9 %; MCH 34.1 pg (25.0-35.0); MCHC 33.6 g/dL (31.0-37.0); MCV 101.5 fL (80.0-100.0); Monocytes # (A) 0.4 k/uL (0-1.0); Monocytes % (A) 6 %; Neutrophils # (A) 5.2 k/uL (1.3-7.7); Neutrophils % (A) 81 %; Platelet Count 283 k/uL (150-450); RBC 4.25 m/uL (4.30-5.90); RDW 11.8 % (11.5-15.5); WBC 6.5 k/uL (3.8-10.6)
--- NOTE | 2021-08-22 17:54 | CT ---
EXAMINATION TYPE: CT brain wo con DATE OF EXAM: 08/22/2021 COMPARISON: 07/31/2021 HISTORY: altered mental status CT DLP: 1099.4 mGycm Automated exposure control for dose reduction was used. There is some cerebral cortical atrophy. There is no mass effect nor midline shift. There is no sign of intracranial hemorrhage. There is normal aeration of the mastoid sinuses. Skull base is intact. Ca lvarium is intact. IMPRESSION: Mild atrophy. No acute intracranial abnormality. No change.
[2021-08-22 18:06] LABS: ALT 21 U/L (4-49); AST 36 U/L (17-59); African American GFR (CKD) >90 (>60 ml/min/1.73 sqM); Albumin 4.1 g/dL (3.5-5.0); Alcohol <10 mg/dL; Alkaline Phosphatase 107 U/L (38-126); Anion Gap 6 mmol/L; Blood Urea Nitrogen 8 mg/dL (9-20); Calcium 9.2 mg/dL (8.4-10.2); Carbon Dioxide 27 mmol/L (22-30); Chloride 92 mmol/L (98-107); Glucose 84 mg/dL (74-99); Non-African American GFR(CKD) >90 (>60 ml/min/1.73 sqM); Sodium 125 mmol/L (137-145); Total Bilirubin 0.6 mg/dL (0.2-1.3); Total Protein 7.1 g/dL (6.3-8.2)
[2021-08-22 18:13] LABS: Potassium 4.1 mmol/L (3.5-5.1)
--- NOTE | 2021-08-22 19:18 | XR ---
EXAMINATION TYPE: XR chest 2V DATE OF EXAM: 08/22/2021 COMPARISON: 07/02/2021 HISTORY: Short of breath. Altered mental status TECHNIQUE: FINDINGS: There are old right-sided rib fractures. There is no heart failure nor confluent pneumonic infiltrate. Heart size is normal. There are no hilar masses. Costophrenic angles are fairly clear. IMPRESSION: No active cardiopulmonary disease. There is probably COPD. No change.
[2021-08-22] MEDS ORDERED: SODIUM CHLORIDE 0.9% 1,000 ML IV STA ×2 (19:27)
[2021-08-22] MEDS ORDERED: levETIRAcetam 500 MG TAB PO SCH (19:30)
[2021-08-22] MEDS ORDERED: NALOXONE 0.4 MG/ML 1 ML VIAL IV PRN (19:47)
--- NOTE | 2021-08-22 19:47 | ED ---
General Adult HPI - General Chief complaint: Altered Mental Status Stated complaint: Confusion Time Seen by Provider: 08/22/21 15:47 Source: patient, EMS, RN notes reviewed, old records reviewed Mode of arrival: EMS Limitations: no limitations - History of Present Illness Initial comments: I evaluated the patient when he was placed in a room. Patient is a 66-year-old male who presents emergency department over concern for possible delirium as well as concern for hyponatremia. Patient has a history of hyponatremia. Family members were concerned as he was acting "off earlier." Nursing staff was able to contact family who corroborated the story. They wanted him evaluated and possibly admitted. Speak with the patient I states he is not compliant with his sodium tabs but is fully alert and oriented. He has no acute complaints. He is compliant and is willing to obtain the workup. He states that earlier he was drinking 2 beers and setting up the [place] when the next thing he was coming to the emergency department for evaluation. He denies any syncopal episodes or hitting his head. Denies any chest pain or shortness of breath. Has no acute complaints at this time.Patient does have a history of seizure disorder but states he is compliant with medications and denies any seizure activity, tongue biting, urinary incontinence. - Related Data Home Medications Medication Instructions Recorded Confirmed Metoprolol Tartrate [Lopressor] 12.5 mg PO BID 01/29/14 08/22/21 Gabapentin [Neurontin] 600 mg PO TID 02/18/20 08/22/21 Multivitamins, Thera [Multivitamin 1 tab PO HS 08/22/21 08/22/21 (formulary)] levETIRAcetam [Keppra] 500 mg PO DIRECTED 08/22/21 08/22/21 lisinopriL 20 mg PO HS 08/22/21 08/22/21 Allergies Allergy/AdvReac Type Severity Reaction Status Date / Time No Known Allergies Allergy Verified 08/22/21 16:53 Review of Systems ROS Statement: Those systems with pertinent positive or pertinent negative responses have been documented in the HPI. Review of Systems: CONST: Denies fever EYES: Denies blurry vision ENT: Denies nasal congestion C/V: Denies Chest pain RESP: Denies shortness of breath GI: Denies abdominal pain : Denies dysuria SKIN: Denies rash. MSK: Denies joint pain. NEURO: Endorse's confusion earlier. ROS Other: All systems not noted in ROS Statement are negative. 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 CARDIOMYOPATHY. VARICOSE VEINS. CHRONIC BACK PAIN, DIFFICULTY WALKING DISTANCE OR SITTING, DRY MOUTH. broken ribs from fall History of Any Multi-Drug Resistant Organisms: None Reported Past Surgical History: Back Surgery, Heart Catheterization Additional Past Surgical History / Comment(s): COLONOSCOPY. PAIN CLINIC PROC'S, BACK SURGERY AT [facility] IN [place]. Removed all teeth 2020 Past Anesthesia/Blood Transfusion Reactions: Previous Problems w/ Anesthesia Additional Past Anesthesia/Blood Transfusion Reaction / Comment(s): WITH 2 PAIN PROC WAS AWAKE, PROCEDURE VERY PAINFUL Past Psychological History: No Psychological Hx Reported Smoking Status: Current every day smoker Past Alcohol Use History: Heavy Past Drug Use History: Marijuana - Past Family History Father Family Medical History: Cancer Additional Family Medical History / Comment(s): Father from colon cancer Mother History Unknown: Yes Family Medical History: No Reported History Additional Family Medical History / Comment(s): Mother , not sure of cause General Exam - General Exam Comments Initial Comments: General: Appears in no acute distress. HEAD: Normal with no signs of head trauma. EYES: PERRLA, EOMI, conjunctiva normal, no discharge. Pupils are 3 mm and equal bilaterally. ENT: Hearing grossly intact, normal oropharynx. RESPIRATORY: Clear breath sounds bilaterally. No wheezes, rales, or rhonchi. C/V: Regular rate and rhythm. S1 and S2 auscultated, no edema, peripheral pulses 2+ and intact throughout ABD: Abd is soft, nontender, nondistended EXT: Normal range of motion, no obvious deformity SKIN: No rashes or lesions observed on exposed skin. NEURO: Alert and oriented x 4. Cranial nerves II-XII intact. No focal sensory or strength deficits. NIH is 0. GCS is 15. Limitations: no limitations Course Vital Signs 08/22/21 15:10 Temperature 97.6 F Pulse Rate 85 Respiratory 18 Rate Blood Pressure 132/92 O2 Sat by Pulse 99 Oximetry Medical Decision Making - Medical Decision Making Based on the patient's presentation and physical exam, I'm concerned for acute onset of confusion and the patient. Is uncertain what happened earlier but is back to baseline. He does have a history of hyponatremia. Therefore we will obtain altered mental status labs, EKG, chest x-ray, CT head as well as a troponin. He was in agreement this plan. He does not require any medications at this time. I will provide him with a dose of Keppra while we wait for results. Patient was in agreement this plan. EKG shows no signs of acute ischemia. Chest x-ray revealed no acute cardio bony process. Head CT revealed no acute intracranial process. Laboratory studies were remarkable for a hyponatremia of 125 with hypochloremia of 92. Remainder of the labs are unremarkable. I'll call level is negative. Covid is negative. On reevaluation, I discussed the results of labs with the patient would like to admit him with his history of chronic hyponatremia. He was in agreement this plan. He will be admitted to observation telemetry bed. I spoke with the patient regarding this, and he is back to his normal baseline mental status. He never had confusion or delirium here in the department. I spoke with the admitting team under ADELSO caldwell of [facility] who accepted the patient. Patient was therefore admitted in stable condition to observation. - Lab Data Result diagrams: 08/22/21 17:25 08/22/21 17:25 Lab Results 08/22/21 08/22/21 08/22/21 Range/Units 17:25 17:25 17:25 WBC 6.5 (3.8-10.6) k/uL RBC 4.25 L (4.30-5.90) m/uL Hgb 14.5 (13.0-17.5) gm/dL Hct 43.1 (39.0-53.0) % MCV 101.5 H (80.0-100.0) fL MCH 34.1 (25.0-35.0) pg MCHC 33.6 (31.0-37.0) g/dL RDW 11.8 (11.5-15.5) % Plt Count 283 (150-450) k/uL MPV 7.0 Neutrophils % 81 % Lymphocytes % 9 % Monocytes % 6 % Eosinophils % 1 % Basophils % 1 % Neutrophils # 5.2 (1.3-7.7) k/uL Lymphocytes # 0.6 L (1.0-4.8) k/uL Monocytes # 0.4 (0-1.0) k/uL Eosinophils # 0.1 (0-0.7) k/uL Basophils # 0.0 (0-0.2) k/uL Sodium 125 L (137-145) mmol/L Potassium 4.1 (3.5-5.1) mmol/L Chloride 92 L (98-107) mmol/L Carbon Dioxide 27 (22-30) mmol/L Anion Gap 6 mmol/L BUN 8 L (9-20) mg/dL Creatinine 0.47 L (0.66-1.25) mg/dL Est GFR (CKD-EPI)AfAm >90 (>60 ml/min/1.73 sqM) Est GFR (CKD-EPI)NonAf >90 (>60 ml/min/1.73 sqM) Glucose 84 (74-99) mg/dL Calcium 9.2 (8.4-10.2) mg/dL Total Bilirubin 0.6 (0.2-1.3) mg/dL AST 36 (17-59) U/L ALT 21 (4-49) U/L Alkaline Phosphatase 107 (38-126) U/L Troponin I <0.012 (0.000-0.034) ng/mL Total Protein 7.1 (6.3-8.2) g/dL Albumin 4.1 (3.5-5.0) g/dL Urine Color Urine Appearance (Clear) Urine pH (5.0-8.0) Ur Specific [place] (1.001-1.035) Urine Protein (Negative) Urine Glucose (UA) (Negative) Urine Ketones (Negative) Urine Blood (Negative) Urine Nitrite (Negative) Urine Bilirubin (Negative) Urine Urobilinogen (<2.0) mg/dL Ur Leukocyte Esterase (Negative) Serum Alcohol <10 mg/dL 08/22/21 Range/Units 17:26 WBC (3.8-10.6) k/uL RBC (4.30-5.90) m/uL Hgb (13.0-17.5) gm/dL Hct (39.0-53.0) % MCV (80.0-100.0) fL MCH (25.0-35.0) pg MCHC (31.0-37.0) g/dL RDW (11.5-15.5) % Plt Count (150-450) k/uL MPV Neutrophils % % Lymphocytes % % Monocytes % % Eosinophils % % Basophils % % Neutrophils # (1.3-7.7) k/uL Lymphocytes # (1.0-4.8) k/uL Monocytes # (0-1.0) k/uL Eosinophils # (0-0.7) k/uL Basophils # (0-0.2) k/uL Sodium (137-145) mmol/L Potassium (3.5-5.1) mmol/L Chloride (98-107) mmol/L Carbon Dioxide (22-30) mmol/L Anion Gap mmol/L BUN (9-20) mg/dL Creatinine (0.66-1.25) mg/dL Est GFR (CKD-EPI)AfAm (>60 ml/min/1.73 sqM) Est GFR (CKD-EPI)NonAf (>60 ml/min/1.73 sqM) Glucose (74-99) mg/dL Calcium (8.4-10.2) mg/dL Total Bilirubin (0.2-1.3) mg/dL AST (17-59) U/L ALT (4-49) U/L Alkaline Phosphatase (38-126) U/L Troponin I (0.000-0.034) ng/mL Total Protein (6.3-8.2) g/dL Albumin (3.5-5.0) g/dL Urine Color Light Yellow Urine Appearance Clear (Clear) Urine pH 7.5 (5.0-8.0) Ur Specific [place] 1.005 (1.001-1.035) Urine Protein Negative (Negative) Urine Glucose (UA) Negative (Negative) Urine Ketones Negative (Negative) Urine Blood Negative (Negative) Urine Nitrite Negative (Negative) Urine Bilirubin Negative (Negative) Urine Urobilinogen <2.0 (<2.0) mg/dL Ur Leukocyte Esterase Negative (Negative) Serum Alcohol mg/dL - EKG Data -: EKG Interpreted by Me EKG Comments: 12-lead Electrocardiogram Interpretation Note EKG was reviewed and interpreted by myself. 12-lead ECG performed at 1839 is interpreted by me as revealing normal sinus rhythm at a rate of 81 beats per minute. Left axis deviation. MT interval is 162 ms, QRS durations 104 ms, QTc is 490 ms.. There were no ST or T wave abnormalities to suggest myocardial ischemia or injury. R wave progression across the precordium was satisfactory. By my interpretation this EKG is non-diagnostic for acute ischemia. EKG appears unchanged from prior EKGs. Disposition Clinical Impression: Hyponatremia Disposition: ADMITTED IP TO THIS HOSP Condition: Stable
[2021-08-22] MEDS ORDERED: lisinopriL 20 MG TAB PO SCH (21:00)
[2021-08-22] MEDS ORDERED: METOPROLOL TARTRATE 12.5 MG TAB PO SCH (21:00)
[2021-08-22] MEDS ORDERED: MULTIVITAMINS, THERA 1 EACH TAB PO SCH (21:00)
[2021-08-22] MEDS: GABAPENTIN 300 MG CAP PO SCH (21:55)
[2021-08-23 05:58] LABS: Urine Alcohol Negative (Negative); Urine Barbiturate Negative (Negative); Urine Cocaine Negative (Negative); Urine Methadone Negative (Negative); Urine Opiates Negative (Negative); Urine Phencyclidine Negative (Negative)
[2021-08-23] MEDS: GABAPENTIN 300 MG CAP PO SCH (08:51)
[2021-08-23 08:56] VITALS: RESP 18
[2021-08-23] MEDS ORDERED: FAMOTIDINE 20 MG/2 ML VIAL IV SCH (09:00)
[2021-08-23] MEDS ORDERED: HEPARIN SODIUM,PORCINE/PF 5,000 UNIT/0.5 ML SYRINGE SQ SCH (09:00)
[2021-08-23 09:56] LABS: African American GFR (CKD) 122.3 (60.0-200.0); Anion Gap 14.6 mmol/L (10.00-18.00); BUN/Creat Ratio 9.52 Ratio (12.00-20.00); Blood Urea Nitrogen 5.5 mg/dL (9.0-27.0); Calcium 8.6 mg/dL (8.7-10.3); Carbon Dioxide 19.6 mmol/L (20.0-27.5); Magnesium 2.1 mg/dL (1.5-2.4); Non-African American GFR(CKD) 105.5 (60.0-200.0); Potassium 4.3 mmol/L (3.5-5.5)
--- NOTE | 2021-08-23 12:17 | P.HPIM ---
History of Present Illness H&P Date: 08/23/21 This is a pleasant 66 year old male past medical history significant for daily ETOH abuse, chronic nicotine dependence, daily THC use. Patient is a one pack per day smoker, daily marijuana use, admits to 3-4 beers daily, however per patient there is possibility that it could be more. Per the family patient was having some acute confusion, and altered mentation so they brought him to the [facility]. Patient does not remember what happened and family is unavailable for a more thorough history. Patient follows with Dr Pandya in the office. 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 At the time of my assessment patient is alert and oriented x3 and is anxious to go home. Patient follows with the [facility], and has an appointment scheduled with the bankruptcy attorney outpatient for hyponatremia. Patient was admitted to the hospital recently for similar symptoms with a questionable seizure that was felt to possibly be alcohol related. Patient was evaluated at that time by neurology who had recommended Shauna for seizure prophylaxis. Patient continues to drink heavily daily. He states that he will not stop drinking smoking cigarettes or smoking marijuana. Brain CT in the [facility] was negative for an acute intracranial process. Chest x-ray revealed no acute cardiopulmonary process. EKG shows no signs of acute ischemia. Sodium on admission is 125 which is stable from his previous discharge. Additional labs show adequate level of 92, BUN 8, creatinine 0.47, glucose 84, troponin negative. Urinalysis is within normal limits. Toxicology screen was positive for cannabinoids and serum alcohol level was less than 10. Covid PCR is not detected. Blood pressure is 133/88, and heart rate 73, 98% oxygen saturation, and is afebrile. Patient was treated with 0.9 normal saline throughout the evening and a sodium level today is now 131. REVIEW OF SYSTEMS: CONSTITUTIONAL: No fever, no malaise, no fatigue. HEENT: No recent visual problems or hearing problems. Denied any sore throat. CARDIOVASCULAR: No chest pain, orthopnea, PND, no palpitations, no syncope. PULMONARY: No shortness of breath, no cough, no hemoptysis. GASTROINTESTINAL: No diarrhea, no nausea, no vomiting, no abdominal pain. NEUROLOGICAL: No headaches, no weakness, no numbness. HEMATOLOGICAL: Denies any bleeding or petechiae. GENITOURINARY: Denies any burning micturition, frequency, or urgency. MUSCULOSKELETAL/RHEUMATOLOGICAL: Denies any joint pain, swelling, or any muscle pain. ENDOCRINE: Denies any polyuria or polydipsia. The rest of the 14-point review of systems is negative. PHYSICAL EXAMINATION: GENERAL: The patient is alert and oriented x3, not in any acute distress. Well developed, well nourished. HEENT: Pupils are round and equally reacting to light. EOMI. No scleral icterus. No conjunctival pallor. Normocephalic, atraumatic. No pharyngeal erythema. No thyromegaly. Patient is missing all his teeth. CARDIOVASCULAR: S1 and S2 present. No murmurs, rubs, or gallops. PULMONARY: Chest is clear to auscultation, no wheezing or crackles. ABDOMEN: Soft, nontender, nondistended, normoactive bowel sounds. No palpable organomegaly. MUSCULOSKELETAL: No joint swelling or deformity. EXTREMITIES: No cyanosis, clubbing, or pedal edema. NEUROLOGICAL: Gross neurological examination did not reveal any focal deficits. SKIN: No rashes. Assessment and plan Assessment Altered mental status probably due to toxic encephalopathy from chronic alcohol abuse, component of confusion possibly due to hyponatremia as well Chronic daily alcohol abuse Hyponatremia secondary to above, as well as dehydration from poor oral intake, currently 131 Beer Potomania Chronic nicotine dependence Daily THC use Hypertension History of heart failure documented, however EF is low-normal at 50-55% per recent echo, no signs of overload this admission. 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 CARDIOMYOPATHY. VARICOSE VEINS. CHRONIC BACK PAIN, DIFFICULTY WALKING DISTANCE OR SITTING, DRY MOUTH. broken ribs from fall History of Any Multi-Drug Resistant Organisms: None Reported Past Surgical History: Back Surgery, Heart Catheterization Additional Past Surgical History / Comment(s): COLONOSCOPY. PAIN CLINIC PROC'S, BACK SURGERY AT [facility] IN [place]. Removed all teeth 2020 Past Anesthesia/Blood Transfusion Reactions: Previous Problems w/ Anesthesia Additional Past Anesthesia/Blood Transfusion Reaction / Comment(s): WITH 2 PAIN PROC WAS AWAKE, PROCEDURE VERY PAINFUL Past Psychological History: No Psychological Hx Reported Smoking Status: Current every day smoker Past Alcohol Use History: Heavy Past Drug Use History: Marijuana - Past Family History Father Family Medical History: Cancer Additional Family Medical History / Comment(s): Father from colon cancer Mother History Unknown: Yes Family Medical History: No Reported History Additional Family Medical History / Comment(s): Mother , not sure of cause Medications and Allergies Home Medications Medication Instructions Recorded Confirmed Type Metoprolol Tartrate [Lopressor] 12.5 mg PO BID 01/29/14 08/22/21 History Gabapentin [Neurontin] 600 mg PO TID 02/18/20 08/22/21 History Multivitamins, Thera [Multivitamin 1 tab PO HS 08/22/21 08/22/21 History (formulary)] levETIRAcetam [Keppra] 500 mg PO DIRECTED 08/22/21 08/22/21 History lisinopriL 20 mg PO HS 08/22/21 08/22/21 History Allergies Allergy/AdvReac Type Severity Reaction Status Date / Time No Known Allergies Allergy Verified 08/22/21 16:53 Physical Exam Vitals: Vital Signs Temp Pulse Resp BP Pulse Ox 08/23/21 08:52 86 18 104/72 98 08/23/21 05:18 73 17 133/88 97 08/22/21 20:00 98.0 F 87 18 139/93 98 08/22/21 15:10 97.6 F 85 18 132/92 99 Intake and Output 08/22/21 08/23/21 08/23/21 22:59 06:59 14:59 Other: Weight 48.988 kg Results CBC & Chem 7: 08/22/21 17:25 08/23/21 03:53 Labs: Abnormal Lab Results - Last 24 Hours (Table) 08/22/21 08/22/21 08/22/21 Range/Units 17:25 17:25 17:26 RBC 4.25 L (4.30-5.90) m/uL MCV 101.5 H (80.0-100.0) fL Lymphocytes # 0.6 L (1.0-4.8) k/uL Sodium 125 L (137-145) mmol/L Chloride 92 L (98-107) mmol/L Carbon Dioxide (20.0-27.5) mmol/L BUN 8 L (9-20) mg/dL Creatinine 0.47 L (0.66-1.25) mg/dL BUN/Creatinine Ratio (12.00-20.00) Ratio Calcium (8.7-10.3) mg/dL U Cannabinoids Screen Positive A (Negative) 08/23/21 Range/Units 03:53 RBC (4.30-5.90) m/uL MCV (80.0-100.0) fL Lymphocytes # (1.0-4.8) k/uL Sodium 131 L (137-145) mmol/L Chloride (98-107) mmol/L Carbon Dioxide 19.6 L (20.0-27.5) mmol/L BUN 5.5 L (9-20) mg/dL Creatinine (0.66-1.25) mg/dL BUN/Creatinine Ratio 9.52 L (12.00-20.00) Ratio Calcium 8.6 L (8.7-10.3) mg/dL U Cannabinoids Screen (Negative) Assessment and Plan Time with Patient: Greater than 30
--- NOTE | 2021-08-23 12:32 | P.DS ---
Providers Date of admission: 08/22/21 19:47 Attending physician: Juaquin Capps Primary care physician: [facility] Hospital Course: Patient is discharged home to follow-up with his primary care provider at the [facility] as well as the chart reader for ongoing hyponatremia. Patient was recently admitted to the hospital for a possible seizure with unclear etiology if it was alcohol-related. There is suspicion that it was as patient is a chronic daily drinker, and has chronic hyponatremia subsequently. Patient was evaluated by neurology previous who recommended po keppra bid. Patient was started on on sodium chloride tablets in the past, however, was noncompliant. We did not continue them after his last discharge as his low sodium is mostly related to chronic alcohol abuse. Patient continues to have episodes of acute confusion and altered mentation per family is also related to his chronic alcohol abuse. We will recommend alcohol cessation was discussed in extent with patient at the bedside that he is going to continue having ongoing issues he does not quit drinking. Patient is understanding that his medical issues arise from his chronic alcohol abuse however he is not agreeing on cessation however he states that he will try and cut down. Patient is alert and oriented, focal neurological exam is negative. Please see HPI for additional information. Patient Condition at Discharge: Stable Plan - Discharge Summary New Discharge Prescriptions: New Famotidine [Pepcid] 20 mg PO BID #60 tablet Continue Metoprolol Tartrate [Lopressor] 12.5 mg PO BID Gabapentin [Neurontin] 600 mg PO TID lisinopriL 20 mg PO HS Multivitamins, Thera [Multivitamin (formulary)] 1 tab PO HS levETIRAcetam [Keppra] 500 mg PO BID Discharge Medication List Metoprolol Tartrate [Lopressor] 12.5 mg PO BID 01/29/14 [History] Gabapentin [Neurontin] 600 mg PO TID 02/18/20 [History] Multivitamins, Thera [Multivitamin (formulary)] 1 tab PO HS 08/22/21 [History] levETIRAcetam [Keppra] 500 mg PO BID 08/22/21 [History] lisinopriL 20 mg PO HS 08/22/21 [History] Famotidine [Pepcid] 20 mg PO BID #60 tablet 08/23/21 [Rx] Follow up Appointment(s)/Referral(s): [facility] [Primary Care Provider] - 1-2 days Facundo Infante DO [STAFF PHYSICIAN] - 1 Week Ambulatory/Diagnostic Orders: Basic Metabolic Panel [LAB.AMB] Time Frame: 2 Days, Location: None Selected Activity/Diet/Wound Care/Special Instructions: Recommend alcohol cessation Recommend tobacco and THC cessation Discharge Disposition: HOME SELF-CARE
[2021-08-23 13:07] VITALS: BP 119/81; PULSE 78; TEMP 98.1
== END 2021-08-23 14:58 | disposition home or self-care (01) | DRG 640 ==
LOC: EC 15:04 → 5NMEDONC 19:47 → UNDODISIN 08-23 13:07
PROVIDERS: ADMIT Hospitalist; ATTEND Hospitalist
DX: E87.1 Hypo-osmolality and hyponatremia (principal); G92.8 Other toxic encephalopathy; I42.9 Cardiomyopathy, unspecified; F10.10 Alcohol abuse, uncomplicated; Z20.822 Contact with and (suspected) exposure to COVID-19; E86.0 Dehydration; Z71.41 Alcohol abuse counseling and surveillance of alcoholic; Z71.6 Tobacco abuse counseling; E87.8 Other disorders of electrolyte and fluid balance, not elsewhere classified; G89.29 Other chronic pain; M54.9 Dorsalgia, unspecified; I83.90 Asymptomatic varicose veins of unspecified lower extremity; F17.210 Nicotine dependence, cigarettes, uncomplicated; F12.90 Cannabis use, unspecified, uncomplicated; G40.909 Epilepsy, unspecified, not intractable, without status epilepticus; I11.0 Hypertensive heart disease with heart failure; I50.9 Heart failure, unspecified; Z79.899 Other long term (current) drug therapy; Z85.21 Personal history of malignant neoplasm of larynx; Z91.19 Patient's noncompliance with other medical treatment and regimen; Z92.3 Personal history of irradiation
CPT/HCPCS: 36415; 70450; 71046; 80048; 80053; 80177; 80306; 80320; 81003; 83735; 84484; 85025; 87635; 93005; 96374; 99285

== ENCOUNTER → 2021-10-14 | Outpatient (CLI) | payer OTHER ==
--- NOTE | 2021-10-14 09:56 | MR ---
EXAMINATION TYPE: MR brain wo/w con DATE OF EXAM: 10/14/2021 COMPARISON: 05/18/2021 HISTORY: Memory loss, encephalopathy, ETOH abuse, history of seizure, and weakness TECHNIQUE: Multiplanar, multisequence images of the brain and brainstem is performed without and with IV contras t, utilizing 6 mL intravenous Gadavist . FINDINGS: The T1-weighted sagittal images, the midline structures including the craniovertebral junction relati onships appear normal. The ventricles, basal cisterns and sulci over the convexities are mildly enlarged consistent with mil d generalized atrophy. There is no mass effect or shift of midline structures. There are mild multifocal areas of abnormal increased signal intensity in the white matter of the cer ebral hemispheres consistent with chronic ischemic white matter demyelination. Based on diffusion-daniel ghted imaging there is no diffusion restriction or acute ischemic event. Following contrast administration, pathological enhancement. The posterior fossa including the brainstem, fourth ventricle and cerebellar pontine angles appear no rmal. The intraorbital contents appear normal and symmetric. Visualized paranasal sinuses and mastoid air c ells are well aerated. IMPRESSION: 1. Mild generalized atrophy. 2. Mild chronic ischemic white matter change. Tiny remote lacunar infarct in the right basal ganglia. 3. No mass, pathological enhancement or acute ischemic event. 4. No significant interval change since prior study.
== END | disposition home or self-care (01) ==
LOC: RADMRIMAIN 07:36
PROVIDERS: ATTEND Psychiatry & Neurology Neurology
DX: G31.89 Other specified degenerative diseases of nervous system (principal); I67.82 Cerebral ischemia; Z86.73 Personal history of transient ischemic attack (TIA), and cerebral infarction without residual deficits
CPT/HCPCS: 70553; A9585

== ENCOUNTER → 2021-11-29 | Outpatient (CLI) | payer OTHER ==
--- NOTE | 2021-11-29 10:58 | US ---
EXAMINATION TYPE: US carotid duplex BILAT DATE OF EXAM: 11/29/2021 COMPARISON: NONE CLINICAL HISTORY: Z86.73 HX OF TIA. dizziness EXAM MEASUREMENTS: RIGHT: Peak Systolic Velocity (PSV) cm/sec ----- Right CCA: 67.7 ----- Right ICA: 79.0 ----- Right ECA: 79.9 ICA/CCA ratio: 1.2 RIGHT: End Diastole cm/sec ----- Right CCA: 18.8 ----- Right ICA: 34.5 ----- Right ECA: 18.0 LEFT: Peak Systolic Velocity (PSV) cm/sec ----- Left CCA: 57.2 ----- Left ICA: 82.5 ----- Left ECA: 73.2 ICA/CCA ratio: 1.4 LEFT: End Diastole cm/sec ----- Left CCA: 19.7 ----- Left ICA: 33.7 ----- Left ECA: 17.1 VERTEBRALS (direction of flow): Right Vertebral: Antegrade Left Vertebral: Antegrade Rhythm: Normal IMPRESSION: No evidence for hemodynamically significant stenosis. Criteria for Assigning % of Stenosis / Diameter reduction (Estimation based on the indirect measurements of the internal carotid artery velocities (ICA PSV). 1. Normal (no stenosis)=ICA PSV < 125 cm/s: ratio < 2.0: ICA EDV<40 cm/s. 2. Less than 50% stenosis=ICA PSV < 125 cm/s: ratio < 2.0: ICA EDV<40 cm/s. 3. 50 to 69% stenosis=ICA PSV of 125 to 230 cm/s: ration 2.0 ? 4.0: ICA EDV 40-100 cm/s. 4. Greater than 70% stenosis to near occlusion= ICA PSV > 230 cm/s: ratio > 4.0: ICA EDV > 100 cm/s. 5. Near occlusion= ICA PSV velocities may be low or undetectable: variable ratio and ICA EDV. 6. Total occlusion=unable to detect flow.
== END | disposition home or self-care (01) ==
LOC: RADUSWWP 10:21
PROVIDERS: ATTEND Physician Assistant
DX: R42 Dizziness and giddiness (principal); Z86.73 Personal history of transient ischemic attack (TIA), and cerebral infarction without residual deficits
CPT/HCPCS: 93880

== ENCOUNTER 2022-02-02 06:56 | Day surgery (SDC) | payer OTHER ==
[2022-02-02 07:14] VITALS: TEMP 96.7
[2022-02-02] MEDS ORDERED: LACTATED RINGERS 1,000 ML IV SCH (07:30)
[2022-02-02] MEDS ORDERED: MIDAZOLAM 2 MG/2 ML VIAL ONE (08:19)
[2022-02-02] MEDS ORDERED: fentaNYL (PF) 50 MCG/ML 2 ML AMP ONE (08:19)
[2022-02-02] MEDS ORDERED: ROPIVACAINE 5MG/ML 20ML VIAL ONE (08:19)
[2022-02-02] MEDS ORDERED: TRIAMCINOLONE ACETONIDE 40 MG/ML 1 ML VIAL ONE (08:19)
--- NOTE | 2022-02-02 08:55 | P.PCN ---
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 Procedure: Bilateral L4-5 radiofrequency thermocoagulation of medial branch under fluoroscopic guidance Bilateral L5-S1 dorsal ramus radiofrequency thermocoagulation under fluoroscopic guidance Surgeon: Merrill Daily Anesthesia: Local: 1% Lidocaine, IV sedation : Midazolam 2 mg, and fentanyl 100+ 50 + 50 micrograms. Complications: None Estimated blood loss: None. Specimen removed: None Fluoroscopic image: Saved to patient electronic medical records. Indications for Procedure: The patient is well known to pain clinic for his chronic low back pain management. The lumbar facet loading test was positive with a clinical diagnosis of lumbar facet arthropathy, . Patient had marked decrease in pain after the diagnostic medial branch procedure. Patient had a previous history of Lumbar radiofrequency ablation. Came here for radiofrequency ablation for longer pain relief. PROCEDURE DESCRIPTION: The patient was seen and identified in the preoperative area. Risks, benefits, complications, and alternatives were discussed with the patient. The patient agreed to proceed with the procedure and signed the consent. IV was started. Vital signs were stable. Patient was taken to the procedure room and timeout was completed. The patient was placed in the prone position on procedure table and a pillow was placed under the abdomen to reduce lumbar lordosis. The lumbosacral area was prepped and draped in the usual sterile fashion. Critical pause was taken. Vital signs were closely monitored during the procedure. The fluoroscopic camera was placed in the anteroposterior position to identify the junction of superior articular process and its corresponding injection with its transverse process of Right side L4, L5, S1, which were anesthetized with 1% lidocaine. We used 18-gauge 100-mm curved, sharp radiofrequency cannula with 10-mm active tip for the procedure. The first cannula was guided by fluoroscopy to the S1 superior articular process and its corresponding junction with its ala. The second cannula was guided by fluoroscopy into the L5 superior articular process and its corresponding junction with its transverse process and pedicle. The third cannula was guided by fluoroscopy into the L4 SAP and its corresponding junction with its transverse process and its pedicle. After confirmation of needle tip position on oblique view, each site underwent motor testing at 2 Hz and 0 to 2.5 volts, and there was good motor stimulation in the back and no radicular symptoms or paresthesias. After confirmation of motor testing, 0.5 mL of block solution injected at each site . Block solution contained 4 mL of 0.5% ropivacaine preservative free mixed with 40 MG of Kenalog. At this time, each site was ablated using continuous radiofrequency mode at 80 degrees Celsius for 90 seconds at each level. At the end of the procedure, each needle was retracted approximately 1 cm and the skin was infiltrated with 0.5% ropivacaine preservative free 1 ml at each site. Skin was cleansed and bandages were applied. Entire procedure repeated on the left side. Skin was cleansed and bandages were applied. Disposition : The patient tolerated the procedure very well. The patient was transferred to the recovery room and remained stable until discharged home. The patient was given detailed discharge instructions for infection, bleeding, and increased pain at the injection
[2022-02-02] MEDS ORDERED: IV FLUID CONTINUATION 900 ML IV ONE (08:57)
[2022-02-02] MEDS ORDERED: LACTATED RINGERS 1,000 ML IV ONE (08:57)
[2022-02-02 08:59] VITALS: RESP 16
--- NOTE | 2022-02-02 09:01 | FL ---
Fluoroscopy History: M47.816 RADIO FREQ LUMBAR BILATERAL Young lumbar RF. 12 sec fl. 8 images sent.
[2022-02-02 09:16] VITALS: BP 137/86; PULSE 83
== END 2022-02-02 09:36 | disposition home or self-care (01) ==
LOC: ORPAIN 06:56
DX: M47.816 Spondylosis without myelopathy or radiculopathy, lumbar region (principal); F17.210 Nicotine dependence, cigarettes, uncomplicated; I50.9 Heart failure, unspecified; M19.90 Unspecified osteoarthritis, unspecified site; E78.5 Hyperlipidemia, unspecified; F17.200 Nicotine dependence, unspecified, uncomplicated
CPT/HCPCS: 64635; 64636; J2250; J3301; J3010; J2795

== ENCOUNTER 2022-03-06 10:04 | Inpatient (IN) | payer OTHER, MEDICARE ==
[2022-03-06] MEDS ORDERED: SODIUM CHLORIDE 0.9% 1,000 ML IV STA (10:37)
--- NOTE | 2022-03-06 10:42 | ED ---
General Adult HPI - General Chief complaint: Altered Mental Status Stated complaint: altered mental status Time Seen by Provider: 03/06/22 10:22 Source: patient, RN notes reviewed, old records reviewed Mode of arrival: ambulatory Limitations: no limitations - History of Present Illness Initial comments: 66-year-old male presenting with confusion, rambling speech, incoherent for the past 5 days. This began on evening. He presents on Saturday morning for evaluation. His history is obtained from paramedics and the patient's . He has no previous psychiatric history. He had seizure about 2 weeks ago and was seen in the emergency department according to the patient's . His been no reported fever. No vomiting or diarrhea. No pain complaints. - Related Data Home Medications Medication Instructions Recorded Confirmed Metoprolol Tartrate [Lopressor] 12.5 mg PO BID 01/29/14 02/02/22 Gabapentin [Neurontin] 600 mg PO TID 02/18/20 02/02/22 Multivitamins, Thera [Multivitamin 1 tab PO DAILY 08/22/21 02/02/22 (formulary)] Atorvastatin [Lipitor] 10 mg PO HS 01/02/22 02/02/22 Folic Acid 1 mg PO DAILY 01/02/22 02/02/22 Sodium Chloride 2 mg PO BID 01/02/22 02/02/22 Vitamin B-1 (Unknown Dose) 1 tab PO DAILY 01/02/22 02/02/22 Aspirin [Adult Low Dose Aspirin EC] 81 mg PO HS 02/02/22 02/02/22 Allergies Allergy/AdvReac Type Severity Reaction Status Date / Time No Known Allergies Allergy Verified 02/15/22 02:05 Review of Systems ROS Statement: Those systems with pertinent positive or pertinent negative responses have been documented in the HPI. ROS Other: All systems not noted in ROS Statement are negative. 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 CARDIOMYOPATHY, VARICOSE VEINS, CHRONIC BACK PAIN, DIFFICULTY WALKING DISTANCE OR SITTING, DRY MOUTH. Hx broken ribs from fall. Hx Metabolic Encephalopathy 2020. has a soft swelling noted hanging off rt elbow, hyponatremia w hospitalizations- last one 2020, MRI IN 2021 SHOWED SMALL STROKEBUT NOT SURE WHEN HE HAD IRT History of Any Multi-Drug Resistant Organisms: None Reported Past Surgical History: Back Surgery, Heart Catheterization Additional Past Surgical History / Comment(s): COLONOSCOPY, PAIN CLINIC PROCEDURES, BACK SURGERY AT [facility] IN [place]. All teeth extracted. Past Anesthesia/Blood Transfusion Reactions: Previous Problems w/ Anesthesia Additional Past Anesthesia/Blood Transfusion Reaction / Comment(s): WITH 2 PAIN PROC WAS AWAKE, PROCEDURE VERY PAINFUL. Past Psychological History: No Psychological Hx Reported Smoking Status: Current every day smoker Past Alcohol Use History: Heavy Past Drug Use History: Marijuana - Past Family History Father Family Medical History: Cancer Additional Family Medical History / Comment(s): Prostate cancer. Mother History Unknown: Yes Family Medical History: No Reported History Additional Family Medical History / Comment(s): Mother , not sure of cause. General Exam Limitations: no limitations General appearance: alert, in no apparent distress Head exam: Present: atraumatic, normocephalic Eye exam: Present: normal appearance, PERRL ENT exam: Present: mucous membranes dry Neck exam: Present: normal inspection. Absent: tenderness, meningismus Respiratory exam: Present: normal lung sounds bilaterally. Absent: respiratory distress, wheezes Cardiovascular Exam: Present: regular rate, normal rhythm GI/Abdominal exam: Present: soft. Absent: distended, tenderness, guarding, rebound Extremities exam: Present: normal inspection, normal capillary refill Neurological exam: Present: alert, other (Patient is nonfocal, strength is 5 out of 5 throughout, no ataxia, he has word finding difficulty and expressive aphasia.). Absent: oriented X3 Psychiatric exam: Present: anxious Skin exam: Present: warm, dry, intact. Absent: cyanosis, diaphoretic Course Vital Signs 03/06/22 10:05 Temperature 98.6 F Pulse Rate 80 Respiratory 18 Rate Blood Pressure 161/103 O2 Sat by Pulse 97 Oximetry EKG Findings - EKG Comments: EKG Findings:: EKG: Sinus rhythm, rate of 84, VT interval 167, QRS duration 105, QTC 460, no ST segment elevation. Medical Decision Making - Medical Decision Making 66-year-old male presenting for evaluation of altered mental status, and nonsensical speech. Symptoms have been present for the past 4 days. Patient has no focal numbness or weakness. No facial droop. There is concern for possible CVA as well as acute manifestation of psychiatric illness. Workup in the emergency department reveals CT which is negative for acute intracranial hemorrhage or mass effect, normal laboratory testing. I do feel that this patient would benefit from further evaluation and treatment. He'll be admitted to [facility], Reg was aware. With both neurology and psychiatry on consultation. - Lab Data Result diagrams: 03/06/22 10:39 03/06/22 10:39 Lab Results 03/06/22 03/06/22 03/06/22 Range/Units 10:39 10:39 10:39 WBC 7.0 (3.8-10.6) k/uL RBC 4.76 (4.30-5.90) m/uL Hgb 15.2 (13.0-17.5) gm/dL Hct 46.2 (39.0-53.0) % MCV 97.1 (80.0-100.0) fL MCH 31.8 (25.0-35.0) pg MCHC 32.8 (31.0-37.0) g/dL RDW 13.1 (11.5-15.5) % Plt Count 251 (150-450) k/uL MPV 7.8 Neutrophils % 83 % Lymphocytes % 9 % Monocytes % 6 % Eosinophils % 1 % Basophils % 1 % Neutrophils # 5.8 (1.3-7.7) k/uL Lymphocytes # 0.6 L (1.0-4.8) k/uL Monocytes # 0.4 (0-1.0) k/uL Eosinophils # 0.0 (0-0.7) k/uL Basophils # 0.0 (0-0.2) k/uL PT 11.0 (9.0-12.0) sec INR 1.0 (<1.2) APTT 28.2 (22.0-30.0) sec Sodium (137-145) mmol/L Potassium (3.5-5.1) mmol/L Chloride (98-107) mmol/L Carbon Dioxide (22-30) mmol/L Anion Gap mmol/L BUN (9-20) mg/dL Creatinine (0.66-1.25) mg/dL Est GFR (CKD-EPI)AfAm (>60 ml/min/1.73 sqM) Est GFR (CKD-EPI)NonAf (>60 ml/min/1.73 sqM) Glucose (74-99) mg/dL Calcium (8.4-10.2) mg/dL Total Bilirubin (0.2-1.3) mg/dL AST (17-59) U/L ALT (4-49) U/L Alkaline Phosphatase (38-126) U/L Troponin I (0.000-0.034) ng/mL Total Protein (6.3-8.2) g/dL Albumin (3.5-5.0) g/dL Urine Color Yellow Urine Appearance Clear (Clear) Urine pH 5.5 (5.0-8.0) Ur Specific [place] 1.021 (1.001-1.035) Urine Protein Negative (Negative) Urine Glucose (UA) Negative (Negative) Urine Ketones 2+ H (Negative) Urine Blood Negative (Negative) Urine Nitrite Negative (Negative) Urine Bilirubin Negative (Negative) Urine Urobilinogen <2.0 (<2.0) mg/dL Ur Leukocyte Esterase Negative (Negative) Urine Opiates Screen Not Detected (NotDetected) Ur Oxycodone Screen Not Detected (NotDetected) Urine Methadone Screen Not Detected (NotDetected) Ur Propoxyphene Screen Not Detected (NotDetected) Ur Barbiturates Screen Not Detected (NotDetected) U Tricyclic Antidepress Not Detected (NotDetected) Ur Phencyclidine Scrn Not Detected (NotDetected) Ur Amphetamines Screen Not Detected (NotDetected) U Methamphetamines Scrn Not Detected (NotDetected) U Benzodiazepines Scrn Not Detected (NotDetected) Urine Cocaine Screen Not Detected (NotDetected) U Marijuana (THC) Screen Detected H (NotDetected) 03/06/22 03/06/22 Range/Units 10:39 10:39 WBC (3.8-10.6) k/uL RBC (4.30-5.90) m/uL Hgb (13.0-17.5) gm/dL Hct (39.0-53.0) % MCV (80.0-100.0) fL MCH (25.0-35.0) pg MCHC (31.0-37.0) g/dL RDW (11.5-15.5) % Plt Count (150-450) k/uL MPV Neutrophils % % Lymphocytes % % Monocytes % % Eosinophils % % Basophils % % Neutrophils # (1.3-7.7) k/uL Lymphocytes # (1.0-4.8) k/uL Monocytes # (0-1.0) k/uL Eosinophils # (0-0.7) k/uL Basophils # (0-0.2) k/uL PT (9.0-12.0) sec INR (<1.2) APTT (22.0-30.0) sec Sodium 134 L (137-145) mmol/L Potassium 4.7 (3.5-5.1) mmol/L Chloride 100 (98-107) mmol/L Carbon Dioxide 27 (22-30) mmol/L Anion Gap 7 mmol/L BUN 13 (9-20) mg/dL Creatinine 0.63 L (0.66-1.25) mg/dL Est GFR (CKD-EPI)AfAm >90 (>60 ml/min/1.73 sqM) Est GFR (CKD-EPI)NonAf >90 (>60 ml/min/1.73 sqM) Glucose 80 (74-99) mg/dL Calcium 9.2 (8.4-10.2) mg/dL Total Bilirubin 0.7 (0.2-1.3) mg/dL AST 33 (17-59) U/L ALT 22 (4-49) U/L Alkaline Phosphatase 173 H (38-126) U/L Troponin I <0.012 (0.000-0.034) ng/mL Total Protein 7.3 (6.3-8.2) g/dL Albumin 4.4 (3.5-5.0) g/dL Urine Color Urine Appearance (Clear) Urine pH (5.0-8.0) Ur Specific [place] (1.001-1.035) Urine Protein (Negative) Urine Glucose (UA) (Negative) Urine Ketones (Negative) Urine Blood (Negative) Urine Nitrite (Negative) Urine Bilirubin (Negative) Urine Urobilinogen (<2.0) mg/dL Ur Leukocyte Esterase (Negative) Urine Opiates Screen (NotDetected) Ur Oxycodone Screen (NotDetected) Urine Methadone Screen (NotDetected) Ur Propoxyphene Screen (NotDetected) Ur Barbiturates Screen (NotDetected) U Tricyclic Antidepress (NotDetected) Ur Phencyclidine Scrn (NotDetected) Ur Amphetamines Screen (NotDetected) U Methamphetamines Scrn (NotDetected) U Benzodiazepines Scrn (NotDetected) Urine Cocaine Screen (NotDetected) U Marijuana (THC) Screen (NotDetected) Disposition Clinical Impression: Altered mental status Disposition: ADMITTED IP TO THIS HOSP Condition: Stable Is patient prescribed a controlled substance at d/c from ED?: No Referrals: [facility] [Primary Care Provider] - 1-2 days Time of Disposition: 12:20
[2022-03-06 10:48] LABS: Basophils % (A) 1 %; Eosinophils % (A) 1 %; HCT 46.2 % (39.0-53.0); HGB 15.2 gm/dL (13.0-17.5); Lymphocytes # (A) 0.6 k/uL (1.0-4.8); Lymphocytes % (A) 9 %; MCH 31.8 pg (25.0-35.0); MCHC 32.8 g/dL (31.0-37.0); MCV 97.1 fL (80.0-100.0); Mean Platelet Volume 7.8; Monocytes # (A) 0.4 k/uL (0-1.0); Monocytes % (A) 6 %; Neutrophils # (A) 5.8 k/uL (1.3-7.7); Neutrophils % (A) 83 %; Platelet Count 251 k/uL (150-450); RBC 4.76 m/uL (4.30-5.90); RDW 13.1 % (11.5-15.5)
[2022-03-06 10:57] LABS: Appearance,Urine Clear (Clear); Bilirubin,Urine Negative (Negative); Blood,Urine Negative (Negative); Color,Urine Yellow; Glucose,Urine (UA) Negative (Negative); Ketones,Urine 2+ (Negative); Leukocyte Esterase,Urine Negative (Negative); Nitrite,Urine Negative (Negative); PH, Urine 5.5 (5.0-8.0); Partial Thromboplastin Time 28.2 sec (22.0-30.0); Protein,Urine Negative (Negative); Specific Gravity,Urine 1.021 (1.001-1.035); Urobilinogen,Urine <2.0 mg/dL (<2.0)
[2022-03-06 11:04] LABS: ALT 22 U/L (4-49); AST 33 U/L (17-59); African American GFR (CKD) >90 (>60 ml/min/1.73 sqM); Albumin 4.4 g/dL (3.5-5.0); Alkaline Phosphatase 173 U/L (38-126); Anion Gap 7 mmol/L; Blood Urea Nitrogen 13 mg/dL (9-20); Calcium 9.2 mg/dL (8.4-10.2); Carbon Dioxide 27 mmol/L (22-30); Chloride 100 mmol/L (98-107); Glucose 80 mg/dL (74-99); Non-African American GFR(CKD) >90 (>60 ml/min/1.73 sqM); Potassium 4.7 mmol/L (3.5-5.1); Sodium 134 mmol/L (137-145); Total Bilirubin 0.7 mg/dL (0.2-1.3); Total Protein 7.3 g/dL (6.3-8.2)
--- NOTE | 2022-03-06 11:33 | CT ---
EXAMINATION TYPE: CT brain wo con DATE OF EXAM: 03/06/2022 COMPARISON: CT dated 08/22/2021 HISTORY: Confused CT DLP: 1099.4 mGycm Automated exposure control for dose reduction was used. TECHNIQUE: CT scan of the brain is performed without IV contrast administration. FINDINGS: Brain volume loss changes, likely age-related. Bilateral cerebral white matter hypodensities, likely representing chronic microvascular ischemic changes. Scattered arterial atherosclerotic calcification s. No acute intracranial hemorrhage. No gross acute cortical infarct. No midline shift, herniation or ve ntriculomegaly. Unremarkable basal cisterns, sella and CP angles. No gross space-occupying lesion, vasogenic edema or mass effect. Unremarkable orbits. Clear visualized paranasal sinuses and mastoid air cells. Osteopenia. IMPRESSION: No acute intracranial hemorrhage or gross acute cortical infarct. Incidental findings as described ab ove.
[2022-03-06 11:35] LABS: Amphetamine Screen,Urine Not Detected (NotDetected); Cocaine Screen,Urine Not Detected (NotDetected); Opiate Screen,Urine Not Detected (NotDetected); Phencyclidine Screen,Urine Not Detected (NotDetected); Urn Cannabinoid Scrn Detected (NotDetected)
[2022-03-06 11:36] LABS: Barbiturate Screen,Urine Not Detected (NotDetected); Benzodiazepines Screen,Urine Not Detected (NotDetected); Methadone Screen, Urine Not Detected (NotDetected); Oxycodone Screen, Urine Not Detected (NotDetected); Tricyclic Antidepressant,Urine Not Detected (NotDetected)
[2022-03-06] MEDS ORDERED: NALOXONE 0.4 MG/ML 1 ML VIAL IV PRN (12:17)
[2022-03-06] MEDS ORDERED: ASPIRIN 325 MG TAB PO STA (12:17)
[2022-03-06] MEDS ORDERED: ACYCLOVIR 400 MG/10 ML CUP PO SCH (13:00)
--- NOTE | 2022-03-06 13:03 | P.HPIM ---
History of Present Illness H&P Date: 03/06/22 History of Presenting Illness: Patient is a 66-year-old male with a past medical history of throat cancer status post radiation in remission since 2019, chronic back pain, chronic hyponatremia, seizures, cardiomyopathy, nicotine dependence, daily cannabis use, and alcohol abuse. He presented to the emergency department with a chief complaint of confusion, babbling speech, and abnormal behaviors x 5 days. Patient's at bedside reports that he has been writing down incomprehensible babbling words and letters over the past 5 days and his speech is incoherent and babbling and randomly changing subjects and has not been able to follow commands. She reports that he has been taking his medication as directed, no more or no less. She reports previous alcohol abuse is no longer and patient only drinks a couple beers a week and denies any recent alcohol use. Patient d oes continue to have nicotine and marijuana use. She denies patient having a previous psychiatric history or ever behaving in this manner. She denies any recent illnesses or rashes, denies history of shingles, denies him having any fevers, chills, vomiting, diarrhea, or any other complaints. She reports normal appetite with no noted difficulties with swallowing. She denies any recent head injuries. She does report that her began experiencing seizure activity 2 events last month and was scheduled to meet with Dr Mejia, neurologist tomorrow. In the emergency department patient underwent full evaluation. CT brain negative for acute intracranial process revealing brain volume loss changes and bilateral cerebral white matter hypodensities likely secondary to age-related changes and chronic microvascular ischemic changes. EKG showing sinus rhythm at 84 bpm with a right bundle branch block. Vital signs stable with the exception of mild hypertension with blood pressure 161/103. CBC unremarkable. Coags normal findings. CMP unremarkable with the exception of mild hyponatremia with sodium of 134 and elevated alkaline phosphatase of 173. Troponin negative at less than 0.012. Urinalysis negative for blood or infection positive for 2+ ketones. Urine drug screen positive for marijuana. Upon physical examination, patient is alert and awake sitting up in bed, moving all extremities independently and appears to have full strength, however would not follow commands such has finger to nose or heel to brooks. Patient has significant expressive aphasia and stuttering. Pupils were equal at 3 mm. Extraocular movements appear to be intact however again would not follow commands. Face is symmetrical. Patient denies having any complaints of pain and sensation is intact. Review of systems: Pertinent positives and negatives as discussed in HPI, a complete review of systems was performed and all other systems are negative. Physical exam: Vital signs reviewed and stable. General: Nontoxic, no distress and appears stated age. Derm: Skin warm and dry, normal coloration for ethnicity. Head: Atraumatic, normocephalic and symmetric. Eyes: EOMs intact, no lid lag, and anicteric sclera Mouth: no lip lesions, mucus membranes moist Cardiovascular: regular rate and rhythm with normal S1S2, no murmur, positive posterior tibial pulses bilaterally, and cap refill < 2 seconds. Lungs: Respirations even, regular, and unlabored on room air. Lungs CTA bilaterally, no rhonchi, no rales, no wheezing, and no accessory muscle usage. Abdominal: soft, nontender to palpation, no guarding, no appreciable organomegaly Ext: ROM intact. No gross muscle atrophy, no edema, no contractures Neuro and Psych: Speech garbled with moderate stuttering, face symmetrical and patient is alert and awake sitting up in bed, moving all extremities independently and appears to have full strength, however would not follow commands such has finger to nose or heel to brooks. Patient has significant expressive aphasia and stuttering. Assessment and Plan of Care: Acute encephalopathy, neurogenic versus psychogenic Expressive aphasia with moderate stuttering, unclear whether neurogenic or psychogenic -Consult neurology -Consult to psychiatry -MRI brain with and without contrast -TSH with reflex free T4, magnesium, B12, folate, and ammonia levels to be obtained. -We will prophylactically start patient on acyclovir for treatment of HSV encephalopathy, if MRI evaluation can determine cause of acute encephalopathy will discontinue acyclovir and if MRI is negative we will place order for LP for further testing. LP not ordered at this time as patient's denies any histo ry of shingles, recent fevers, illnesses or rashes. -Neuro checks every 4 hours. -Seizure and fall precautions in place. Chronic hyponatremia -Stable with sodium of 134, patient follows up outpatient with nephrology. Patient manages his chronic hyponatremia with sodium chloride tablets 1 g daily. -We will continue with daily sodium chloride tablets and patient to continue to follow up outpatient with nephrology. Hypertension -Monitor vital signs and continue daily medication regimen with metoprolol 25 mg twice daily. Hyperlipidemia -Continue daily medication regimen with atorvastatin. History of throat cancer status post radiation therapy -In remission since 2019, recommend outpatient follow-up with oncologist for long-term monitoring. The patient is admitted with an anticipated greater than 2 midnight stay for evaluation of acute encephalopathy likely neurogenic versus psychogenic CODE STATUS: Full code DVT prophylaxis: Lovenox Discussed with: Patient and RN Anticipated discharge date: Clinical course to determine Anticipated discharge place: Home A total of 45 minutes was spent on the care of this complex patient more than 50% of the time was spent in counseling and care coordination. I reviewed the documentation as provided by the TEDDY above, who is the original author of this note. 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 CARDIOMYOPATHY, VARICOSE VEINS, CHRONIC BACK PAIN, DIFFICULTY WALKING DISTANCE OR SITTING, DRY MOUTH. Hx broken ribs from fall. Hx Metabolic Encephalopathy 2020. has a soft swelling noted hanging off rt elbow, hyponatremia w hospitalizations- last one 2020, MRI IN 2021 SHOWED SMALL STROKEBUT NOT SURE WHEN HE HAD IRT History of Any Multi-Drug Resistant Organisms: None Reported Past Surgical History: Back Surgery, Heart Catheterization Additional Past Surgical History / Comment(s): COLONOSCOPY, PAIN CLINIC PROCEDURES, BACK SURGERY AT [facility] IN [place]. All teeth extracted. Past Anesthesia/Blood Transfusion Reactions: Previous Problems w/ Anesthesia Additional Past Anesthesia/Blood Transfusion Reaction / Comment(s): WITH 2 PAIN PROC WAS AWAKE, PROCEDURE VERY PAINFUL. Past Psychological History: No Psychological Hx Reported Smoking Status: Current every day smoker Past Alcohol Use History: Heavy Past Drug Use History: Marijuana - Past Family History Father Family Medical History: Cancer Additional Family Medical History / Comment(s): Prostate cancer. Mother History Unknown: Yes Family Medical History: No Reported History Additional Family Medical History / Comment(s): Mother , not sure of cause. Medications and Allergies Home Medications Medication Instructions Recorded Confirmed Type Metoprolol Tartrate [Lopressor] 25 mg PO BID 01/29/14 03/06/22 History Gabapentin [Neurontin] 600 mg PO TID 02/18/20 03/06/22 History Multivitamins, Thera [Multivitamin 1 tab PO DAILY 08/22/21 03/06/22 History (formulary)] Folic Acid 1 mg PO DAILY 01/02/22 03/06/22 History Atorvastatin [Lipitor] 10 mg PO HS 03/06/22 03/06/22 History Lidocaine [Lidoderm 5% Patch] 1 patch TRANSDERM DAILY 03/06/22 03/06/22 History Sodium Chloride Tab 1 gm PO DAILY 03/06/22 03/06/22 History Allergies Allergy/AdvReac Type Severity Reaction Status Date / Time No Known Allergies Allergy Verified 03/06/22 13:08 Physical Exam Osteopathic Statement: *. No significant issues noted on an osteopathic structural exam other than those noted in the History and Physical/Consult. Vitals: Vital Signs Temp Pulse Resp BP Pulse Ox 03/06/22 10:05 98.6 F 80 18 161/103 97 Intake and Output 03/05/22 03/06/22 03/06/22 22:59 06:59 14:59 Other: Weight 68.039 kg Results CBC & Chem 7: 03/06/22 10:39 03/06/22 10:39 Labs: Abnormal Lab Results - Last 24 Hours (Table) 03/06/22 03/06/22 03/06/22 Range/Units 10:39 10:39 10:39 Lymphocytes # 0.6 L (1.0-4.8) k/uL Sodium 134 L (137-145) mmol/L Creatinine 0.63 L (0.66-1.25) mg/dL Alkaline Phosphatase 173 H (38-126) U/L Urine Ketones 2+ H (Negative) U Marijuana (THC) Screen Detected H (NotDetected)
[2022-03-06] MEDS: SODIUM CHLORIDE 0.9% IVPB SCH ×2 (14:21→21:20)
[2022-03-06] MEDS: ACYCLOVIR SODIUM IVPB SCH ×2 (14:21→21:20)
[2022-03-06] MEDS: SODIUM CHLORIDE 0.9% 1,000 ML IV SCH (14:21)
[2022-03-06 14:27] LABS: Magnesium 2.1 mg/dL (1.6-2.3)
[2022-03-06 15:23] LABS: Alcohol <10 mg/dL
--- NOTE | 2022-03-06 16:56 | P.CNNES ---
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 History was obtained from patient's was at bedside. She stated that for the past 4 days the patient has been having abnormal behavioral, making no sense, not sleeping for at least 48 hours, writing nonstop. Per 's no seizure-like activity recently. She stated that she had an EEG about 2-3 weeks ago by his neurologist (Dr. Ulloa) which shows some mild slowing other than that no seizure. Patient is on Keppra 500 mg half a tablet daily started by her his neurologist. His last seizure was in February 15, 2022 and prior to that was July 2021. She stated for the last 1 year his the mentation has been fluttering on and off but then last for days his behavioral mentation has been very off. Patient has lost about 14 pounds in the last 1 month even though he has been eating well. Patient smokes 1-1/2 pack a day. He drinks one to 2 cans of beer every other day and he does not drink the entire can. His last drink was Saturday according to the . She denies of any illicit drug use. He uses marijuana. Of note the patient is known to our neurology service and was last seen by our neurology team on 05/19/2021 for altered mental status and was felt due to metabolic because of hyponatremia and alcohol withdrawal as well as medication effect. Patient had delirium with psychosis. Patient had 2 EEGs in our faci lity which did not show any epileptiform discharges or seizure on the EEG. Per she stated that for seizure in the past he was stiff and had jerking of extremities. Some of the workup during this hospital visit consisted of:: Temperature of 98.6. White blood cells 7.0 otherwise rest of the CBC with differential is unremarkable Sodium is 134, PhosLo and 73. Initial serum glucose is 80. Next on TSH is 1.80. Ammonia level is less than 9 Urinalysis negative for urinary tract infection. Urine drug screen is marijuana is detected otherwise rest is not detected in the serum alcohol was less than 10. CT of the head which reported as no acute intracranial hemorrhage or gross acute cortical infarct. I personally reviewed the CT the head and I agree with the report. Review of Systems Review of system: The 12 point system was reviewed and apparent positive and negative per HPI. 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 CARDIOMYOPATHY, VARICOSE VEINS, CHRONIC BACK PAIN, DIFFICULTY WALKING DISTANCE OR SITTING, DRY MOUTH. Hx broken ribs from fall. Hx Metabolic Encephalopathy 2020. has a soft swelling noted hanging off rt elbow, hyponatremia w hospitalizations- last one 2020, MRI IN 2021 SHOWED SMALL STROKEBUT NOT SURE WHEN HE HAD IRT History of Any Multi-Drug Resistant Organisms: None Reported Past Surgical History: Back Surgery, Heart Catheterization Additional Past Surgical History / Comment(s): COLONOSCOPY, PAIN CLINIC PROCEDURES, BACK SURGERY AT [facility] [place]. All teeth extracted. Past Anesthesia/Blood Transfusion Reactions: Previous Problems w/ Anesthesia Additional Past Anesthesia/Blood Transfusion Reaction / Comment(s): WITH 2 PAIN PROC WAS AWAKE, PROCEDURE VERY PAINFUL. Past Psychological History: No Psychological Hx Reported Smoking Status: Current every day smoker Past Alcohol Use History: Heavy Past Drug Use History: Marijuana - Past Family History Father Family Medical History: Cancer Additional Family Medical History / Comment(s): Prostate cancer. Mother History Unknown: Yes Family Medical History: No Reported History Additional Family Medical History / Comment(s): Mother , not sure of cause. Medications and Allergies Home Medications Medication Instructions Recorded Confirmed Type Metoprolol Tartrate [Lopressor] 25 mg PO BID 01/29/14 03/06/22 History Gabapentin [Neurontin] 600 mg PO TID 02/18/20 03/06/22 History Multivitamins, Thera [Multivitamin 1 tab PO DAILY 08/22/21 03/06/22 History (formulary)] Folic Acid 1 mg PO DAILY 01/02/22 03/06/22 History Atorvastatin [Lipitor] 10 mg PO HS 03/06/22 03/06/22 History Lidocaine [Lidoderm 5% Patch] 1 patch TRANSDERM DAILY 03/06/22 03/06/22 History Sodium Chloride Tab 1 gm PO DAILY 03/06/22 03/06/22 History Allergies Allergy/AdvReac Type Severity Reaction Status Date / Time No Known Allergies Allergy Verified 03/06/22 13:08 Physical Examination - Vital Signs Vital Signs: Vital Signs Temp Pulse Resp BP Pulse Ox 03/06/22 13:11 84 18 145/96 96 03/06/22 11:11 71 18 175/105 95 03/06/22 10:05 98.6 F 80 18 161/103 97 Intake and Output 03/06/22 03/06/22 03/06/22 06:59 14:59 22:59 Other: Weight 68.039 kg GENERAL: The patient is lying in bed and is not in acute distress. Patient appears cachectic. CHEST: The heart rate is regular rate rhythm. No murmurs to auscultation. LUNG: Clear to auscultation bilaterally no wheezing noted throughout. Not labored breathing. ABDOMEN/GI: Bowel sounds present in all 4 quadrants. No tenderness to palpation throughout. PSYCH: Patient is tangential. NEUROLOGICAL: Limited because of his cooperation. Higher mental function: The patient is awake, alert, oriented to self. He correctly stated he was in the hospital. He could not tell time. He was able to correctly name objects (watch and pen). He correctly stated he was in [place] and correctly named his . Patient is following some simple commands but needed direction. I feel patient is more tangential talking and hard to state this is aphasia. Cranial nerves: The pupils are round, equal and reactive to light. Visual price are full to confrontation throughout. Extraocular movement is intact no nystagmus is noted.The facial strength is normal throughout. Tongue is midline and moved [id number] without any difficulty. No dysarthria is noted. Motor: The strength is could not assess individual muscles because of his cooperation but moving all extremities above gravity. Normal tone and bulk. Cerebellum:Unable to assess. Sensation: Unable to assess. Reflexes (right/left): 1+ throughout. Plantars are mute bilaterally. Results - Laboratory Findings CBC and BMP: 03/06/22 10:39 03/06/22 10:39 Abnormal Lab Findings: Abnormal Labs 03/06/22 03/06/2222 10:39 10:39 10:39 Lymphocytes # 0.6 L Sodium 134 L Creatinine 0.63 L Alkaline Phosphatase 173 H Urine Ketones 2+ H U Marijuana (THC) Screen Detected H Assessment and Plan Assessment: Encephalopathy of unknown etiology (patient has been confused, talking tangential, behavioral change, has not slept in 4 days). Rule out brain me tastasis (especially since patient has history of epiglotic cancer and has recently lost 14 lbs in last 1 months unintentional) History of seizure (last seizure was in Feb 15 2022) History of epiglottis cancer in 2019 status post radiation therapy last in 2019 Hypertension, Chronic hyponatremia--improved compared to past Chronic low back pain Cardiomyopathy Chronic alcohol use (but has been drinking 1-2 can every other day and not drinking entire can. Last drink is this past Saturday) Ongoing tobacco use Plan: MRI Brain w/ and w/o is ordered by primary team. Spoke with primary team and recommended EEG. If above are negative consider lumbar puncture to assess for cytology. Also if negative we'll consider anti-NMDA antibody. Vitamin B12, folate is ordered and is pending I increased his home medication of keppra from 250mg bid to 500mg bid ( was notified that it can increase moodiness/behavioral changes). Every 4 hours neuro checks Recommend oncology consultation especially with unintentional weight loss and history of cancer. Psychiatry team was consulted by the ED team. We'll defer the rest of the medical management to primary team. The plan is discussed with patient's and primary team. Thank you for the consultation. Jayden Cunningham M.D. Neuro-Hospitalist Time with Patient: Greater than 30
[2022-03-06] MEDS: GABAPENTIN 300 MG CAP PO SCH ×2 (18:07→21:20)
[2022-03-06] MEDS: levETIRAcetam 500 MG TAB PO SCH (21:20)
[2022-03-06] MEDS: ATORVASTATIN 10 MG TAB PO SCH (21:20)
[2022-03-06] MEDS: METOPROLOL TARTRATE 25 MG TAB PO SCH (21:20)
[2022-03-06] MEDS ORDERED: ALPRAZolam 0.5 MG TAB PO STA (23:23)
[2022-03-07] MEDS: SODIUM CHLORIDE 0.9% 1,000 ML IV SCH ×2 (04:06→17:39)
[2022-03-07] MEDS: ACYCLOVIR SODIUM IVPB SCH ×3 (06:22→21:43)
[2022-03-07] MEDS: SODIUM CHLORIDE 0.9% IVPB SCH ×3 (06:22→21:43)
[2022-03-07 08:43] LABS: HCT 44.5 % (39.0-53.0); HGB 14.7 gm/dL (13.0-17.5); MCH 32.8 pg (25.0-35.0); MCHC 33.2 g/dL (31.0-37.0); MCV 98.9 fL (80.0-100.0); Mean Platelet Volume 7.9; Platelet Count 245 k/uL (150-450); RBC 4.49 m/uL (4.30-5.90); RDW 13.8 % (11.5-15.5); WBC 6.5 k/uL (3.8-10.6)
[2022-03-07] MEDS: MULTIVITAMINS, THERA 1 EACH TAB PO SCH (08:52)
[2022-03-07] MEDS: SODIUM CHLORIDE TAB 1 GM TAB PO SCH (08:52)
[2022-03-07] MEDS: GABAPENTIN 300 MG CAP PO SCH ×3 (08:52→21:43)
[2022-03-07] MEDS: levETIRAcetam 500 MG TAB PO SCH ×2 (08:52→21:43)
[2022-03-07] MEDS: FOLIC ACID 1 MG TAB PO SCH (08:52)
[2022-03-07] MEDS: ASPIRIN 81 MG PO SCH (08:52)
[2022-03-07] MEDS: METOPROLOL TARTRATE 25 MG TAB PO SCH ×2 (08:53→21:43)
[2022-03-07] MEDS: ENOXAPARIN 40 MG/0.4 ML SYRINGE SQ SCH ×2 (08:53→08:57)
[2022-03-07 09:11] LABS: ALT 17 U/L (4-49); AST 24 U/L (17-59); African American GFR (CKD) >90 (>60 ml/min/1.73 sqM); Albumin 3.6 g/dL (3.5-5.0); Alkaline Phosphatase 149 U/L (38-126); Anion Gap 7 mmol/L; Blood Urea Nitrogen 5 mg/dL (9-20); Carbon Dioxide 22 mmol/L (22-30); Chloride 105 mmol/L (98-107); Glucose 79 mg/dL (74-99); Non-African American GFR(CKD) >90 (>60 ml/min/1.73 sqM); Potassium 4.2 mmol/L (3.5-5.1); Sodium 134 mmol/L (137-145); Total Bilirubin 0.6 mg/dL (0.2-1.3); Total Protein 6.1 g/dL (6.3-8.2)
[2022-03-07 09:24] LABS: Calcium 8.6 mg/dL (8.4-10.2)
--- NOTE | 2022-03-07 11:15 | MR ---
EXAMINATION TYPE: MR brain wo/w con DATE OF EXAM: 03/07/2022 11:09 AM COMPARISON: NONE HISTORY: Expressive aphasia, stuttering CONTRAST: Patient received 7 mL intravenous Gadavist gadolinium contrast. Multiplanar and multispin-echo imaging of the brain was performed . Pre and post contrast enhanced i mages are obtained. The ventricles, basal cisterns and sulci overlying the cerebral convexities are mildly enlarged. There is evidence of mild periventricular white matter ischemic demyelination. Remote deep white matter insults are also noted. No acute edema is seen on diffusion weighted imaging. There is no evidence for midline shift or mass effect. Acute intracranial hemorrhage or extra-axial collection is not evident. No enhancing lesions are seen. The paranasal sinuses and mastoid air cells are well-aerated. IMPRESSION: Age-related atrophic and chronic small vessel ischemic change. No acute intracranial process at this time. No enhancing lesions are seen.
--- NOTE | 2022-03-07 13:16 | EEG ---
ELECTROENCEPHALOGRAM REPORT DATE OF SERVICE: 03/07/2022 CLINICAL HISTORY: This is a 66-year-old gentleman with altered mental status. The video EEG is obtained to evaluate for seizure epileptiform activity. RELEVANT MEDICATION: Keppra. EEG TYPE: A routine 21 channel EEG is performed with video using the 10/20 electrode system. DESCRIPTION: Wakefulness is only obtained. During awake state, the posterior-dominant rhythm consists of low to moderate voltage of 8.5 to 9 hertz activity. There is no physiological stage 2 sleep architecture. There is no focal slowing. Interictal and ictal is none. Photic stimulation did not evoke a posterior driving response. There is no abnormality during the photic stimulation. Hyperventilation is not performed. CLINICAL INTERPRETATION: This is a normal routine EEG. There is no focal slowing, epileptiform discharge or seizure on the EEG. Clinical correlation is recommended. DOROTEO / JEANE: [id number] / MTDD
[2022-03-07] MEDS ORDERED: OLANZapine 10 MG VIAL IM PRN (13:39)
--- NOTE | 2022-03-07 14:39 | P.CN ---
Psychiatric Consult - . Consult date: 03/07/22 Consult:: 03/07/22 14:37 IDENTIFYING DATA: This patient is a 66-year-old male with significant history of epiglottal cancer s/p radiation therapy, cardiomyopathy and alcohol use disorder who presented to the hospital on 03/06/2022 for altered mental status. HISTORY OF PRESENT ILLNESS: The patient presented to the hospital on 03/06/2022, with a chief complaint of confusion, babbling speech, and abnormal behaviors for 5 days. Reportedly, the patient had a seizure approximately 2 weeks ago. As per discussion with the patient's , the patient began to have significant decline in his mentation and began acting bizarrely and strangely over the last 5 days. Upon evaluation on the medical floor, the patient is displaying significant labile behaviors. He is cooperative during the psychiatric interview however is extremely tearful and emotional. He states that he has not been able to sleep for the last 3-5 days. He expresses a strong desire to go to bed. He also reports excessive feelings of guilt and is concerned about disappointing everyone. Furthermore, the patient initially does endorse some visual hallucinations however is unable to fully identify what he is seeing. He is denying any auditory or visual hallucinations. He is currently not reporting any suicidal or homicidal ideation, and/or plan. He is currently alert and oriented to person and place. He is unable to identify with the current president in his correctly (states Phong Rojas), nor is he able to identify the correct month. Collateral information was obtained by the patient's . The patient's reports that the patient has had no significant psychiatric history prior to this presentation over the last 5 days. She reports that the patient does use marijuana and does engage in alcohol use however there has been no significant changes that would lead to such a quick change in behaviors and mood. She reports that at baseline, he is happy person who is alert and oriented in all spheres. The patient does report that he uses marijuana daily. Patient and report no significant changes and the strain or use of marijuana. The patient does report a history of mescaline and acid use but states that it has been greater than 30 years since he last used these drugs. The patient does have significant history of alcohol use disorder, drinking up to 10-12 beers per day however states that he has been drinking only at most 2 beers per day for the last year. Patient displays hyponatremia (134), and slightly elevated alkaline phosphatase. UDS was positive for marijuana only. UA was negative. Otherwise no abnormal labs. TSH, folate, and B12 are within normal limits. EEG was negative. MRI displayed no acute pathology. PAST PSYCHIATRIC HISTORY: Patient has no previous psychiatric history aside from a history of alcohol use disorder. and patient deny any history of psychiatric medications. Patient denies any previous psychiatric hospitalizations. Patient denies any psychiatric outpatient follow-up. Patient denies any history of suicide attempts in the past. PAST MEDICAL HISTORY: Past Medical History: Cancer, Heart Failure, CVA/TIA, Hyperlipidemia, Memory Impairment, Osteoarthritis (OA) Additional Past Medical History / Comment(s): HX CANCER OF EPIGLOTTIS-02/25/19-tx with radiation(finished 04/2019). CARDIOMYOPATHY, VARICOSE VEINS, CHRONIC BACK PAIN, DIFFICULTY WALKING DISTANCE OR SITTING, DRY MOUTH. Hx broken ribs from fall. Hx Metabolic Encephalopathy 2020. has a soft swelling noted hanging off rt elbow, hyponatremia w hospitalizations- last one 2020, MRI IN 2021 SHOWED SMALL STROKEBUT NOT SURE WHEN HE HAD IRT History of Any Multi-Drug Resistant Organisms: None Reported Past Surgical History: Back Surgery, Heart Catheterization Additional Past Surgical History / Comment(s): COLONOSCOPY, PAIN CLINIC PROCEDURES, BACK SURGERY AT [facility] IN [place]. All teeth extracted. Past Anesthesia/Blood Transfusion Reactions: Previous Problems w/ Anesthesia Additional Past Anesthesia/Blood Transfusion Reaction / Comment(s): WITH 2 PAIN PROC WAS AWAKE, PROCEDURE VERY PAINFUL. Past Psychological History: No Psychological Hx Reported Smoking Status: Current every day smoker Past Alcohol Use History: Heavy Past Drug Use History: Marijuana ALLERGIES: NO KNOWN DRUG ALLERGIES CHEMICAL DEPENDENCY HISTORY: Patient has a history of heavy alcohol use. He reports that he is not drinking at most 2 beers per day but attributes most, he was drinking up to 10-15 beers per day. He also has a daily marijuana user. He has a history of mescaline and acid use however that it has been more than 30 years since he last used. He is currently an everyday tobacco user. FAMILY PSYCHIATRIC/SUBSTANCE USE HISTORY: No reported family history. SOCIAL HISTORY: Patient was born and raised in [place], [place]. He has been to his Mariama who works at [employer]. MENTAL STATUS EXAM: General Appearance: Patient appears to be stated age is alert, pleasant, and attempts to cooperate. Patient appears to have slightly disheveled hygiene and grooming wearing hospital gown with fair eye contact. Behavior: Patient displays elevated psychomotor activity. Patient is unable to sit still. He is intrusive and "touchy." Speech: Patient's speech is spontaneous, rapid, nonlinear, difficult to follow. Mood/Affect: Patient reports their mood is "just not good", affect is dysphoric and tearful. Suicidality/Homicidality: Patient denies any suicidal or homicidal ideation. Perceptions: Patient reports visual hallucinations however denies any auditory hallucinations. Though content/process: Patient appears to be grossly disorganized. Ruminative. Memory and concentration: Patient is alert and oriented to person and place. Judgment and insight: Very poor. Vital Signs Temp 97.7 F 03/07/22 11:46 Pulse 69 03/07/22 11:46 Resp 20 03/07/22 11:46 BP 158/91 03/07/22 11:46 Pulse Ox 97 03/07/22 11:46 FiO2 Intake & Output 03/06/22 03/07/22 03/07/22 18:59 06:59 18:59 Intake Total 600 Balance 600 Weight 68.039 kg Intake: Oral 600 Other: # Voids 2 1 Laboratory Results WBC 6.5 k/uL (3.8-10.6) 03/07/22 08:21 RBC 4.49 m/uL (4.30-5.90) 03/07/22 08:21 Hgb 14.7 gm/dL (13.0-17.5) 03/07/22 08:21 Hct 44.5 % (39.0-53.0) 03/07/22 08:21 MCV 98.9 fL (80.0-100.0) 03/07/22 08:21 MCH 32.8 pg (25.0-35.0) 03/07/22 08:21 MCHC 33.2 g/dL (31.0-37.0) 03/07/22 08:21 RDW 13.8 % (11.5-15.5) 03/07/22 08:21 Plt Count 245 k/uL (150-450) 03/07/22 08:21 MPV 7.9 03/07/22 08:21 Neutrophils % 83 % 03/06/22 10:39 Lymphocytes % 9 % 03/06/22 10:39 Monocytes % 6 % 03/06/22 10:39 Eosinophils % 1 % 03/06/22 10:39 Basophils % 1 % 03/06/22 10:39 Neutrophils # 5.8 k/uL (1.3-7.7) 03/06/22 10:39 Lymphocytes # 0.6 k/uL (1.0-4.8) L 03/06/22 10:39 Monocytes # 0.4 k/uL (0-1.0) 03/06/22 10:39 Eosinophils # 0.0 k/uL (0-0.7) 03/06/22 10:39 Basophils # 0.0 k/uL (0-0.2) 03/06/22 10:39 PT 11.0 sec (9.0-12.0) 03/06/22 10:39 INR 1.0 (<1.2) 03/06/22 10:39 APTT 28.2 sec (22.0-30.0) 03/06/22 10:39 Sodium 134 mmol/L (137-145) L 03/07/22 08:21 Potassium 4.2 mmol/L (3.5-5.1) 03/07/22 08:21 Chloride 105 mmol/L (98-107) 03/07/22 08:21 Carbon Dioxide 22 mmol/L (22-30) 03/07/22 08:21 Anion Gap 7 mmol/L 03/07/22 08:21 BUN 5 mg/dL (9-20) L 03/07/22 08:21 Creatinine 0.54 mg/dL (0.66-1.25) L 03/07/22 08:21 Est GFR (CKD-EPI)AfAm >90 (>60 ml/min/1.73 sqM) 03/07/22 08:21 Est GFR (CKD-EPI)NonAf >90 (>60 ml/min/1.73 sqM) 03/07/22 08:21 Glucose 79 mg/dL (74-99) 03/07/22 08:21 Calcium 8.6 mg/dL (8.4-10.2) 03/07/22 08:21 Magnesium 2.0 mg/dL (1.6-2.3) 03/07/22 08:21 Total Bilirubin 0.6 mg/dL (0.2-1.3) 03/07/22 08:21 AST 24 U/L (17-59) 03/07/22 08:21 ALT 17 U/L (4-49) 03/07/22 08:21 Alkaline Phosphatase 149 U/L (38-126) H 03/07/22 08:21 Ammonia <9 umol/L (<30) 03/06/22 14:08 Troponin I <0.012 ng/mL (0.000-0.034) 03/06/22 10:39 Total Protein 6.1 g/dL (6.3-8.2) L 03/07/22 08:21 Albumin 3.6 g/dL (3.5-5.0) 03/07/22 08:21 Vitamin B12 1197.0 pg/mL (200.0-944.0) H 03/06/22 15:02 Folate >20.00 ng/mL (4.40-31.00) 03/06/22 15:02 TSH 1.880 mIU/L (0.465-4.680) 03/06/22 10:39 Urine Color Yellow 03/06/22 10:39 Urine Appearance Clear (Clear) 03/06/22 10:39 Urine pH 5.5 (5.0-8.0) 03/06/22 10:39 Ur Specific [place] 1.021 (1.001-1.035) 03/06/22 10:39 Urine Protein Negative (Negative) 03/06/22 10:39 Urine Glucose (UA) Negative (Negative) 03/06/22 10:39 Urine Ketones 2+ (Negative) H 03/06/22 10:39 Urine Blood Negative (Negative) 03/06/22 10:39 Urine Nitrite Negative (Negative) 03/06/22 10:39 Urine Bilirubin Negative (Negative) 03/06/22 10:39 Urine Urobilinogen <2.0 mg/dL (<2.0) 03/06/22 10:39 Ur Leukocyte Esterase Negative (Negative) 03/06/22 10:39 Urine Opiates Screen Not Detected (NotDetected) 03/06/22 10:39 Ur Oxycodone Screen Not Detected (NotDetected) 03/06/22 10:39 Urine Methadone Screen Not Detected (NotDetected) 03/06/22 10:39 Ur Propoxyphene Screen Not Detected (NotDetected) 03/06/22 10:39 Ur Barbiturates Screen Not Detected (NotDetected) 03/06/22 10:39 U Tricyclic Antidepress Not Detected (NotDetected) 03/06/22 10:39 Ur Phencyclidine Scrn Not Detected (NotDetected) 03/06/22 10:39 Ur Amphetamines Screen Not Detected (NotDetected) 03/06/22 10:39 U Methamphetamines Scrn Not Detected (NotDetected) 03/06/22 10:39 U Benzodiazepines Scrn Not Detected (NotDetected) 03/06/22 10:39 Urine Cocaine Screen Not Detected (NotDetected) 03/06/22 10:39 U Marijuana (THC) Screen Detected (NotDetected) H 03/06/22 10:39 Serum Alcohol <10 mg/dL 03/06/22 15:02 IMPRESSIONS: Encephalopathy of unknown etiology - acute onset of psychotic/manic symptoms. Concern for brain metastases given his history of epiglottic cancer and weight loss over the last month. Epiglottic cancer status post radiation therapy Hyponatremia Cardiomyopathy Chronic alcohol use Tobacco use disorder PLAN: -At this time patient DOES NOT meet criteria for inpatient psychiatric admission. Currently, the patient is presenting with significant psychiatric symptoms however, the onset of symptoms given the patient's demographic is unusual, and with predominantly visual hallucinations, there is concern for more medical etiology over psychiatric at this time. -Delirium precautions recommended with patient including - avoiding use of narcotics and CLAIMS [employer]OUNT [employer]NAGER sedatives, limit anticholinergic medications when possible, frequent re-orientation, minimize use of restraints, open window shades during the day and close them at night -Would recommend the following medication changes/additions: We will start a trial of Seroquel 100 mg by mouth at bedtime for management of mood stabilization and insomnia We will order Zyprexa 2.5 mg IM when necessary for agitation -The risks, benefits, and treatment alternatives were discussed at length with the patient's . We discussed the black box warning of antipsychotic medications increasing the risk of cardiovascular events in the elderly. Patient's is in agreement at this time to start antipsychotic medications as the benefits currently outweigh the risk. -Agree with neurology recommendations for consideration of a lumbar puncture to assess for cytology and rule out encephalitis -Agree with recommendation for oncology consultation. -Continue your medical management -Psychiatry will continue to follow along 03/07/22 14:37
--- NOTE | 2022-03-07 14:49 | P.PN ---
Subjective Progress Note Date: 03/07/22 Hospital Course: Patient is a 66-year-old male with a past medical history of throat cancer status post radiation in remission since 2019, chronic back pain, chronic hyponatremia, seizures, cardiomyopathy, nicotine dependence, daily cannabis use, and alcohol abuse. He presented to the emergency department with a chief complaint of confusion, babbling speech, and abnormal behaviors x 5 days. Patient's at bedside reports that he has been writing down incomprehensible babbling words and letters over the past 5 days and his speech is incoherent and babbling and randomly changing subjects and has not been able to follow commands. She reports that he has been taking his medication as directed, no more or no less. She reports previous alcohol abuse is no longer and patient only drinks a couple beers a week and denies any recent alcohol use. Patient does continue to have nicotine and marijuana use. She denies patient having a previous psychiatric history or ever behaving in this manner. She denies any recent illnesses or rashes, denies history of shingles, denies him having any fevers, chills, vomiting, diarrhea, or any other complaints. She reports normal appetite with no noted difficulties with swallowing. She denies any recent head injuries. She does report that her began experiencing seizure activity 2 events last month and was scheduled to meet with Dr Mejia, neurologist tomorrow. In the emergency department patient underwent full evaluation. CT brain negative for acute intracranial process revealing brain volume loss changes and bilateral cerebral white matter hypodensities likely secondary to age-related changes and chronic microvascular ischemic changes. EKG showing sinus rhythm at 84 bpm with a right bundle branch block. Vital signs stable with the exception of mild hypertension with blood pressure 161/103. CBC unremarkable. Coags normal findings. CMP unremarkable with the exception of mild hyponatremia with sodium of 134 and elevated alkaline phosphatase of 173. Troponin negative at less than 0.012. Urinalysis negative for blood or infection positive for 2+ ketones. Urine drug screen positive for marijuana. U pascale physical examination, patient is alert and awake sitting up in bed, moving all extremities independently and appears to have full strength, however would not follow commands such has finger to nose or heel to brooks. Patient has significant expressive aphasia and stuttering. Pupils were equal at 3 mm. Extraocular movements appear to be intact however again would not follow commands. Face is symmetrical. Patient denies having any complaints of pain and sensation is intact. Physical exam: Patient seen and fully evaluated at bedside upon return from testing. His mentation seems to be improved and patient was able to follow more commands and he was yesterday but still needs repeated guidance and redirection. His speech remains unorganized and at times incomprehensible. MRI revealing age-related atrophic and chronic small vessel ischemic changes, no acute intercranial process noted. EEG normal.. Morning labs reviewed and CBC is unremarkable and CMP revealed mild hyponatremia with sodium of 134 otherwise again unremarkable. TSH was normal at 1.880, vitamin B12 1197.0, folate greater than 20, ammonia less than 9. Case was discussed with Dr. Cunningham, neurologist and due to normal MRI and EEG we will obtain a lumbar puncture for further workup. Vital signs reviewed and stable. General: Nontoxic, no distress and appears stated age. Derm: Skin warm and dry, normal coloration for ethnicity. Head: Atraumatic, normocephalic and symmetric. Eyes: EOMs intact, no lid lag, and anicteric sclera Mouth: no lip lesions, mucus membranes moist Cardiovascular: regular rate and rhythm with normal S1S2, no murmur, positive posterior tibial pulses bilaterally, and cap refill < 2 seconds. Lungs: Respirations even, regular, and unlabored on room air. Lungs CTA bilaterally, no rhonchi, no rales, no wheezing, and no accessory muscle usage. Abdominal: soft, nontender to palpation, no guarding, no appreciable organomegaly Ext: ROM intact. No gross muscle atrophy, no edema, no contractures Neuro and Psych: Patient alert to person and place. Speech garbled with moderate stuttering, face symmetrical and patient is alert and awake sitting up in bed, moving all extremities independently and appears to have full strength, however would not follow commands such has finger to nose or heel to brooks. Patient has significant expressive aphasia and stuttering. Assessment and Plan of Care: Acute encephalopathy, unclear etiology neurogenic versus psychogenic Expressive aphasia with moderate stuttering, unclear whether neurogenic or psychogenic -CT head negative for acute intercranial process. -MRI brain with and without contrast revealing age-related atrophic and chronic small vessel ischemic changes, no acute intercranial process noted. 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 -Continue Neuro checks every 4 hours. -Seizure and fall precautions in place. Chronic hyponatremia -Stable with sodium of 134, patient follows up outpatient with nephrology. Patient manages his chronic hyponatremia with sodium chloride tablets 1 g daily. -We will continue with daily sodium chloride tablets and patient to continue to follow up outpatient with nephrology. Hypertension -Monitor vital signs and continue daily medication regimen with metoprolol 25 mg twice daily. Hyperlipidemia -Continue daily medication regimen with atorvastatin. History of throat cancer status post radiation therapy -In remission since 2019, recommend outpatient follow-up with oncologist for long-term monitoring. CODE STATUS: Full code DVT prophylaxis: Lovenox Discussed with: Patient and RN Anticipated discharge date: Clinical course to determine Anticipated discharge place: Home A total of 39 minutes was spent on the care of this complex patient more than 50% of the time was spent in counseling and care coordination. Objective - Vital Signs Vital signs: Vital Signs Temp 97.7 F 03/07/22 11:46 Pulse 69 03/07/22 11:46 Resp 20 03/07/22 11:46 BP 158/91 03/07/22 11:46 Pulse Ox 97 03/07/22 11:46 FiO2 Intake & Output 03/06/22 03/07/22 03/07/22 18:59 06:59 18:59 Intake Total 600 Balance 600 Weight 68.039 kg Intake: Oral 600 Other: # Voids 2 1 - Labs CBC & Chem 7: 03/07/22 08:21 03/07/22 08:21 Labs: Abnormal Lab Results - Last 24 Hours (Table) 03/06/22 03/07/22 Range/Units 15:02 08:21 Sodium 134 L (137-145) mmol/L BUN 5 L (9-20) mg/dL Creatinine 0.54 L (0.66-1.25) mg/dL Alkaline Phosphatase 149 H (38-126) U/L Total Protein 6.1 L (6.3-8.2) g/dL Vitamin B12 1197.0 H (200.0-944.0) pg/mL
--- NOTE | 2022-03-07 14:50 | P.PN ---
Subjective Progress Note Date: 03/07/22 The patient is seen at bedside and was notified that he is about the same and no improvement. Upon seeing him he was sleeping. Objective - Vital Signs Vital signs: Vital Signs Temp 97.7 F 03/07/22 11:46 Pulse 69 03/07/22 11:46 Resp 20 03/07/22 11:46 BP 158/91 03/07/22 11:46 Pulse Ox 97 03/07/22 11:46 FiO2 Intake & Output 03/06/22 03/07/22 03/07/22 18:59 06:59 18:59 Intake Total 600 Balance 600 Weight 68.039 kg Intake: Oral 600 Other: # Voids 2 1 - Exam GENERAL: The patient is lying in bed and is not in acute distress. Patient appears cachectic. NEUROLOGICAL: Limited since sleeping. No facial weakness. Some of the workup during this hospital visit consisted of: Urinalysis negative for urinary tract infection. Urine drug screen is marijuana is detected otherwise rest is not detected in the serum alcohol was less than 10. CT of the head which reported as no acute intracranial hemorrhage or gross acute cortical infarct. I personally reviewed the CT the head and I agree with the report. MR the brain is reported as age-related atrophy and chronic small vessel ischemic change. No acute intracranial process seen at this time. No enhancing lesion are seen. I personally reviewed the MRI and agree that there is no acute or subacute ischemic stroke and there is no enhancing lesion. Routine EEG on 03/07/2022 is normal. There is no focal slowing, epileptiform discharges or seizure in the EEG. - Labs CBC & Chem 7: 03/07/22 08:21 03/07/22 08:21 Labs: Abnormal Lab Results - Last 24 Hours (Table) 03/06/22 03/07/22 Range/Units 15:02 08:21 Sodium 134 L (137-145) mmol/L BUN 5 L (9-20) mg/dL Creatinine 0.54 L (0.66-1.25) mg/dL Alkaline Phosphatase 149 H (38-126) U/L Total Protein 6.1 L (6.3-8.2) g/dL Vitamin B12 1197.0 H (200.0-944.0) pg/mL Assessment and Plan Assessment: Encephalopathy of unknown etiology (patient has been confused, pyshcotic/manic symptoms, talking tangential, has not slept in 4 days prior to presenting to hospital). Rule out encephalitis (NMDA encephalitis) especially with hx of cancer (has lost 14 lbs in last one month that is unintentional). MRI Brain is negative for mets and routine EEG is normal. 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 Last drink is this past Saturday) Ongoing tobacco use Plan: Consulted anesthesiology team for lumbar puncture. Ordered routine CSF study, NMDA receptor antibody, cytology. Ordered viral panel, HSV1/2, syphilis CSF. We'll decrease the Keppra 5 500 mg twice a day to his home medication of 250 mg twice a day this there is no seizure on the EEG and his presentation does not seem seizure. Every 4 hours neuro checks Recommend oncology consultation especially with unintentional weight loss and history of cancer. Psychiatry team was consulted by the ED team. We'll defer the rest of the medical management to primary team. The plan is discussed with primary team and psychiatry team. Jayden Cunningham M.D. Neuro-Hospitalist Time with Patient: Less than 30
[2022-03-07] MEDS: ATORVASTATIN 10 MG TAB PO SCH (21:43)
[2022-03-07] MEDS: QUEtiapine 100 MG TAB PO SCH (21:43)
[2022-03-08] MEDS: SODIUM CHLORIDE 0.9% IVPB SCH ×3 (05:58→21:26)
[2022-03-08] MEDS: ACYCLOVIR SODIUM IVPB SCH ×3 (05:58→21:26)
[2022-03-08] MEDS: SODIUM CHLORIDE 0.9% 1,000 ML IV SCH ×2 (05:59→21:30)
[2022-03-08 08:10] LABS: HCT 44.6 % (39.0-53.0); HGB 14.2 gm/dL (13.0-17.5); MCH 31.5 pg (25.0-35.0); MCHC 31.8 g/dL (31.0-37.0); Mean Platelet Volume 7.8; Platelet Count 235 k/uL (150-450); RBC 4.51 m/uL (4.30-5.90); RDW 13.4 % (11.5-15.5); WBC 8.5 k/uL (3.8-10.6)
[2022-03-08 08:37] LABS: ALT 15 U/L (4-49); AST 21 U/L (17-59); African American GFR (CKD) >90 (>60 ml/min/1.73 sqM); Alkaline Phosphatase 131 U/L (38-126); Anion Gap 6 mmol/L; Blood Urea Nitrogen 4 mg/dL (9-20); Calcium 8.3 mg/dL (8.4-10.2); Carbon Dioxide 22 mmol/L (22-30); Chloride 110 mmol/L (98-107); Glucose 83 mg/dL (74-99); Non-African American GFR(CKD) >90 (>60 ml/min/1.73 sqM); Sodium 138 mmol/L (137-145); Total Bilirubin 0.2 mg/dL (0.2-1.3); Total Protein 5.4 g/dL (6.3-8.2)
--- NOTE | 2022-03-08 09:27 | P.PN ---
Subjective Progress Note Date: 03/08/22 Hospital Course: Patient is a 66-year-old male with a past medical history of throat cancer status post radiation in remission since 2019, chronic back pain, chronic hyponatremia, seizures, cardiomyopathy, nicotine dependence, daily cannabis use, and alcohol abuse. He presented to the emergency department with a chief complaint of confusion, babbling speech, and abnormal behaviors x 5 days. Patient's at bedside reported that he has been writing down incomprehensible babbling words and letters over the past 5 days and his speech was incoherent and babbling and randomly changing subjects and had not been able to follow commands. She reported that he had been taking his medication as directed, no more or no less. She reported previous alcohol abuse, but stated he was no longer abusing alcohol and only drank a couple beers a week and denies any recent alcohol use. Patient does continue to have nicotine and marijuana. Pt's denied her having a previous psychiatric history or ever behaving in this manner. She denied any recent illnesses or rashes, denied history of shingles, denied recent fevers, chills, vomiting, diarrhea, or any other complaints. She reported normal appetite with no noted difficulties with swallowing. She denied any recent head injuries. She reported that last month her began having new onset seizure activity 2 events and was scheduled to meet with Dr Mejia, neurologist. In the emergency department patient un derwent full evaluation. CT brain negative for acute intracranial process revealing brain volume loss changes and bilateral cerebral white matter hypodensities likely secondary to age-related changes and chronic microvascular ischemic changes. EKG showing sinus rhythm at 84 bpm with a right bundle branch block. Vital signs stable with the exception of mild hypertension with blood pressure 161/103. CBC unremarkable. Coags normal findings. CMP unremarkable with the exception of mild hyponatremia with sodium of 134 and elevated alkaline phosphatase of 173. Troponin negative at less than 0.012. Urinalysis negative for blood or infection positive for 2+ ketones. Urine drug screen positive for marijuana. Patient was admitted services consultation to neurology and psychiatry. Patient was started on acyclovir every 8 hours for prophylactic treatment of herpes encephalitis, pending LP results. Neurology following consulted anesthesia for lumbar puncture. Psychiatry following, started patient on trial Seroquel 100 mg nightly for stabilization of mood and insomnia. MRI brain with and without contrast revealing age-related atrophic and chronic small vessel ischemic changes, no acute intercranial process noted. TSH, B12, folate, and ammonia levels all normal. Patient awaiting evaluation by anesthesiology for lumbar puncture. Physical exam: Patient seen and fully evaluated at bedside this morning. Upon initial evaluation patient resting comfortably in bed, he was alert and oriented to person, place, time, and situation. Patient's speech clear with no noted stuttering. Physical therapy and bedside and patient was able to follow commands and put on his socks, he did require direction. Upon standing patient was initially noted to be unsteady and complained of slight dizziness. However patient was very determined and did not sit down. Patient did have noted stutt ering and garbling of his words, appeared to be stress-induced as this lasted momentarily and improved throughout continued physical therapy session. Awaiting lumbar puncture to be completed. At this time patient to continue with acyclovir 700 mg q8 hrs. Vital signs reviewed and stable. General: Nontoxic, no distress and appears stated age. Derm: Skin warm and dry, normal coloration for ethnicity. Head: Atraumatic, normocephalic and symmetric. Eyes: EOMs intact, no lid lag, and anicteric sclera Mouth: no lip lesions, mucus membranes moist Cardiovascular: regular rate and rhythm with normal S1S2, no murmur, positive posterior tibial pulses bilaterally, and cap refill < 2 seconds. Lungs: Respirations even, regular, and unlabored on room air. Lungs CTA bilaterally, no rhonchi, no rales, no wheezing, and no accessory muscle usage. Abdominal: soft, nontender to palpation, no guarding, no appreciable organomegaly Ext: ROM intact. No gross muscle atrophy, no edema, no contractures Neuro and Psych: Patient alert to person and place. Speech garbled with moderate stuttering, face symmetrical and patient is alert and awake sitting up in bed, moving all extremities independently and appears to have full strength, however would not follow commands such has finger to nose or heel to brooks. Patient has significant expressive aphasia and stuttering. Assessment and Plan of Care: Acute encephalopathy, unclear etiology neurogenic versus psychogenic Expressive aphasia with moderate stuttering, unclear whether neurogenic or psychogenic -CT head negative for acute intercranial process. -MRI brain with and without contrast revealing age-related atrophic and chronic small vessel ischemic changes, no acute intercranial process noted. 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 -Continue Neuro checks every 4 hours. -Seizure and fall precautions in place. Chronic hyponatremia -Stable with sodium of 134, patient follows up outpatient with nephrology. Patient manages his chronic hyponatremia with sodium chloride tablets 1 g daily. -We will continue with daily sodium chloride tablets and patient to continue to follow up outpatient with nephrology. Hypertension -Monitor vital signs and continue daily medication regimen with metoprolol 25 mg twice daily. Hyperlipidemia -Continue daily medication regimen with atorvastatin. History of throat cancer status post radiation therapy -In remission since 2019, recommend outpatient follow-up with oncologist for long-term monitoring. CODE STATUS: Full code DVT prophylaxis: Lovenox Discussed with: Patient, patient's and RN Anticipated discharge date: Clinical course to determine Anticipated discharge place: Home A total of 35 minutes was spent on the care of this complex patient more than 50% of the time was spent in counseling and care coordination. I reviewed the documentation as provided by the TEDDY above, who is the original author of this note. I agree with the documented assessment and plan, with the following changes: none Objective - Vital Signs Vital signs: Vital Signs Temp 97.9 F 03/08/22 03:36 Pulse 70 03/08/22 03:36 Resp 18 03/08/22 03:36 BP 97/57 03/08/22 03:36 Pulse Ox 95 03/08/22 03:36 FiO2 Intake & Output 03/07/22 03/08/22 03/08/22 18:59 06:59 18:59 Intake Total 1690 400 Balance 1690 400 Intake: Intake, IV Titration 850 Amount Acyclovir Sodium 700 mg 250 In Sodium Chloride 0.9% 250 ml @ 264 mls/hr IVPB Q8H [facility] Rx#:[id number] Sodium Chloride 0.9% 1, 600 000 ml @ 75 mls/hr IV . [id number] [facility] Rx#:[id number] Oral 840 400 Other: # Voids 1 2 - Labs CBC & Chem 7: 03/08/22 07:43 03/08/22 07:43 Labs: Abnormal Lab Results - Last 24 Hours (Table) 03/07/22 Range/Units 08:21 Sodium 134 L (137-145) mmol/L BUN 5 L (9-20) mg/dL Creatinine 0.54 L (0.66-1.25) mg/dL Alkaline Phosphatase 149 H (38-126) U/L Total Protein 6.1 L (6.3-8.2) g/dL
[2022-03-08] MEDS: ENOXAPARIN 40 MG/0.4 ML SYRINGE SQ SCH (09:30)
[2022-03-08] MEDS: METOPROLOL TARTRATE 25 MG TAB PO SCH ×2 (09:31→21:25)
[2022-03-08] MEDS: MULTIVITAMINS, THERA 1 EACH TAB PO SCH (09:31)
[2022-03-08] MEDS: levETIRAcetam 500 MG TAB PO SCH (09:31)
[2022-03-08] MEDS: GABAPENTIN 300 MG CAP PO SCH ×3 (09:31→21:24)
[2022-03-08] MEDS: FOLIC ACID 1 MG TAB PO SCH (09:32)
[2022-03-08] MEDS: ASPIRIN 81 MG PO SCH (09:32)
[2022-03-08] MEDS: SODIUM CHLORIDE TAB 1 GM TAB PO SCH (09:32)
[2022-03-08] MEDS ORDERED: LACTATED RINGERS 1,000 ML IV ONE (12:00)
--- NOTE | 2022-03-08 12:40 | P.PCN ---
Date of Procedure: 03/08/22 Procedure(s) Performed: Preoperative diagnosis: 1-altered mental status. 2-encephalitis Post operative diagnoses: Same as preop diagnosis. Procedure= lumbar puncture Anesthesia local infiltration with lidocaine 1% 2 mL. Condition: stable Complication: none. Description of the procedure procedure risk and benefits discussed with the patient and family, consent signed. Patient and the procedure area placed in sitting position, back prepped with chlorhexidine 3 times been local infiltration of the skin and subcutaneous tissue with lidocaine 1% 2 mL for skin and subcu interstitial frustrations at L4 5 levels then 22-gauge Quincke-type needle advanced slowly at L4- 5 interlaminar space there was positive cerebrospinal fluid which was clear, no heme, no paresthesia ,total of 8 ML of clear cerebrospinal fluid collected in 4 different tubes 2mL in each, then the needle removed and a Band-Aid applied and patient tolerated the procedure well without any complications.
--- NOTE | 2022-03-08 12:50 | P.PN ---
Progress Note - Text Progress Note Date: 03/08/22 Interval History: This provider attempted to see the patient at approximately 12 PM on 03/08/2022. The patient was not in his room as he had been transported for a lumbar puncture. As per discussion with the patient's nurse, the patient has been adherent with his medication and has been sleeping. He is reportedly doing better. This provider will attempt to reevaluate the patient tomorrow morning. Continue Seroquel 100 mg by mouth at bedtime for now. Labs and vital reviewed. Phil Delgadillo MD
--- NOTE | 2022-03-08 12:51 | P.PN ---
Subjective Progress Note Date: 03/08/22 The patient is seen at bedside and per nurse he had sleeping and has been doing much better compared to his initial presentation. He feels he is doing better. Psychiatry has him on Seroquel 100mg qhs and Zyprexa PRN. Objective - Vital Signs Vital signs: Vital Signs Temp 98.9 F 03/08/22 11:51 Pulse 76 03/08/22 11:51 Resp 18 03/08/22 11:51 BP 135/78 03/08/22 11:51 Pulse Ox 94 L 03/08/22 11:51 FiO2 Intake & Output 03/07/22 03/08/22 03/08/22 18:59 06:59 18:59 Intake Total 1690 400 200 Balance 1690 400 200 Intake: IV 200 Intake, IV Titration 850 Amount Acyclovir Sodium 700 mg 250 In Sodium Chloride 0.9% 250 ml @ 264 mls/hr IVPB Q8H [facility] Rx#:[id number] Sodium Chloride 0.9% 1, 600 000 ml @ 75 mls/hr IV . [id number] [facility] Rx#:[id number] Oral 840 400 Other: # Voids 1 2 1 - Exam GENERAL: The patient is lying in bed and is not in acute distress. Patient ap pears cachectic. NEUROLOGICAL: Higher mental function: Patient is awake, alert, oriented to self, time. He stated he is in the hospital. He is able to follow simple commands. No neglect. Cranial Nerves: Pupils are round, equal and reactive. VFF to confrontation. No facial weakness. No dysarthria. Motor: Strength: Normal throughout. Some of the workup during this hospital visit consisted of: Urinalysis negative for urinary tract infection. Urine drug screen is marijuana is detected otherwise rest is not detected in the serum alcohol was less than 10. CT of the head which reported as no acute intracranial hemorrhage or gross acute cortical infarct. I personally reviewed the CT the head and I agree with the report. MR the brain is reported as age-related atrophy and chronic small vessel ischemic change. No acute intracranial process seen at this time. No enhancing lesion are seen. I personally reviewed the MRI and agree that there is no acute or subacute ischemic stroke and there is no enhancing lesion. Routine EEG on 03/07/2022 is normal. There is no focal slowing, epileptiform discharges or seizure in the EEG. - Labs CBC & Chem 7: 03/08/22 07:43 03/08/22 07:43 Labs: Abnormal Lab Results - Last 24 Hours (Table) 03/08/22 Range/Units 07:43 Chloride 110 H (98-107) mmol/L BUN 4 L (9-20) mg/dL Calcium 8.3 L (8.4-10.2) mg/dL Alkaline Phosphatase 131 H (38-126) U/L Total Protein 5.4 L (6.3-8.2) g/dL Albumin 3.0 L (3.5-5.0) g/dL Assessment and Plan Assessment: Encephalopathy of unknown etiology (patient has been confused, pyshcotic/manic symptoms, talking tangential, has not slept in 4 days prior to presenting to hospital). Mentation is improving. Possible resut of psychosis from lack of sleep. Rule out encephalitis (NMDA encephalitis) especially with hx of cancer (has lost 14 lbs in last one month that is unintentional). MRI Brain is negative for mets and routine EEG is normal. 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 Last drink is this past Saturday) Ongoing tobacco use Plan: Consulted anesthesiology team for lumbar puncture. Ordered routine CSF study, NMDA receptor antibody, cytology. Ordered viral panel, HSV1/2, syphilis CSF. To be done today. Continue home Keppra 250 mg twice a day Every 4 hours neuro checks Psychiatry has him on Seroquel 100mg qhs and Zyprexa PRN. Recommend oncology consultation especially with unintentional weight loss and history of cancer. Psychiatry team is on board. We'll defer the rest of the medical management to primary team. The plan is discussed with primary team and psychiatry team. Jayden Cunningham M.D. Neuro-Hospitalist Time with Patient: Less than 30
[2022-03-08 16:18] LABS: Glucose,CSF 53 mg/dL (40-70); Total Protein,CSF 90 mg/dL (12-60)
[2022-03-08 18:32] LABS: Appearance,CSF Clear; CSF Tube Number 4; CSF Tube Volume 1.5; Nucleated Cells, CSF 0 u/L (0-5); Red Blood Cell,CSF 0 u/L (0-10)
[2022-03-08] MEDS: levETIRAcetam 250 MG TAB PO SCH (21:24)
[2022-03-08] MEDS: QUEtiapine 100 MG TAB PO SCH (21:25)
[2022-03-08] MEDS: ATORVASTATIN 10 MG TAB PO SCH (21:25)
[2022-03-09] MEDS: SODIUM CHLORIDE 0.9% 1,000 ML IV SCH ×2 (04:51→18:50)
[2022-03-09] MEDS: SODIUM CHLORIDE 0.9% IVPB SCH (05:04)
[2022-03-09] MEDS: ACYCLOVIR SODIUM IVPB SCH (05:04)
--- NOTE | 2022-03-09 09:19 | P.PN ---
Subjective Progress Note Date: 03/09/22 The patient is seen at bedside and is accompanied by his and she feels he continues to be confused. Was notified by nursing staff he slept overnight well. Objective - Vital Signs Vital signs: Vital Signs Temp 98.0 F 03/09/22 03:50 Pulse 72 03/09/22 03:50 Resp 18 03/09/22 03:50 BP 134/76 03/09/22 03:50 Pulse Ox 95 03/09/22 03:50 FiO2 Intake & Output 03/08/22 03/09/22 03/09/22 18:59 06:59 18:59 Intake Total 800 10 Output Total 400 1550 Balance 400 -1540 Intake: IV 200 10 Invasive Line 2 10 Oral 600 Output: Urine 400 1550 Other: Voiding Method Urinal # Voids 1 2 - Exam GENERAL: The patient is sitting in a chair and is not in acute distress. Patient is cachectic. PSYCH: Is tangential. NEUROLOGICAL: Higher mental function: Patient is awake, alert, oriented to self, time. He stated he is in the hospital. He is able to follow some simple commands. Is tangential and taking about random things. Is not aphasic. No neglect. Cranial Nerves: Pupils are round, equal and reactive. VFF to confrontation. No facial weakness. No dysarthria. Motor: Strength: Normal throughout. Some of the workup during this hospital visit consisted of: Urinalysis negative for urinary tract infection. Urine drug screen is marijuana is detected otherwise rest is not detected in the serum alcohol was less than 10. CT of the head which reported as no acute intracranial hemorrhage or gross acute cortical infarct. I personally reviewed the CT the head and I agree with the report. MR the brain is reported as age-related atrophy and chronic small vessel ischemic change. No acute intracranial process seen at this time. No enhancing lesion are seen. I personally reviewed the MRI and agree that there is no acute or subacute ischemic stroke and there is no enhancing lesion. Routine EEG on 03/07/2022 is normal. There is no focal slowing, epileptiform discharges or seizure in the EEG. CSF: Clear, colorless, rbc 0, nucleated cell 0, glucose 53, protein 90 (normal is 12-60). - Labs CBC & Chem 7: 03/08/22 07:43 03/08/22 07:43 Labs: Abnormal Lab Results - Last 24 Hours (Table) 03/08/22 Range/Units 12:15 CSF Total Protein 90 H (12-60) mg/dL Microbiology - Last 24 Hours (Table) 03/08/22 12:15 CSF Culture - Preliminary Cerebral Spinal Fluid Assessment and Plan Assessment: Encephalopathy of unknown etiology (patient has been confused, pyshcotic/manic symptoms, talking tangential, has not slept in 4 days prior to presenting to hospital). CSF: has elevated protein of unknown cause but 0 nucleated cells, afebrile and no leukocytosis. Rule out encephalitis (NMDA encephalitis) especially with hx of cancer (has lost 14 lbs in last one month that is unintentional). MRI Brain is negative for mets and routine EEG is normal. 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 Last drink is this past Saturday) Ongoing tobacco use Plan: CSF: has elevated protein of unknown cause but 0 nucleated cells, afebrile and no leukocytosis. NMDA receptor antibody, cytology, viral panel, HSV1/2, syphilis CSF: pending. Continue home Keppra 250 mg twice a day Spoke with primary regarding obtain whole body PET scan but it was notified will be difficult as inpatient as likely as outpatient because of insurance issues. Every 4 hours neuro checks Psychiatry has him on Seroquel 100mg qhs and Zyprexa PRN. Recommend oncology consultation especially with unintentional weight loss and history of cancer. Psychiatry team is on board. We'll defer the rest of the medical management to primary team. The plan is discussed with his (who is at [facility]) and nurse. Jayden Cunningham M.D. Neuro-Hospitalist Time with Patient: Less than 30
[2022-03-09] MEDS: GABAPENTIN 300 MG CAP PO SCH ×3 (09:36→20:24)
[2022-03-09] MEDS: SODIUM CHLORIDE TAB 1 GM TAB PO SCH (09:37)
[2022-03-09] MEDS: METOPROLOL TARTRATE 25 MG TAB PO SCH ×2 (09:37→20:24)
[2022-03-09] MEDS: MULTIVITAMINS, THERA 1 EACH TAB PO SCH (09:37)
[2022-03-09] MEDS: ENOXAPARIN 40 MG/0.4 ML SYRINGE SQ SCH (09:37)
[2022-03-09] MEDS: FOLIC ACID 1 MG TAB PO SCH (09:37)
[2022-03-09] MEDS: levETIRAcetam 250 MG TAB PO SCH ×2 (09:37→20:26)
[2022-03-09] MEDS: ASPIRIN 81 MG PO SCH (09:37)
[2022-03-09] MEDS ORDERED: SODIUM CHLORIDE 0.9% 1,000 ML IV ONE (10:16)
[2022-03-09] MEDS: IOPAMIDOL CONTRAST (ORAL USE) VIAL PO PRN ×2 (12:43→12:44)
--- NOTE | 2022-03-09 14:24 | P.PN ---
Progress Note - Text Progress Note Date: 03/09/22 Interval History: Patient was seen resting in bed. Present to the patient is his grandmother in law. The patient is agreeable to being evaluated psychiatrically with her present. Currently, the patient is alert and oriented to person, year, and place. He continues to display labile mood and is very emotional throughout the interview. He is crying constantly and appears to be intrusive. When asked what he has been thinking of, the patient is unable to provide any specifics and is vague in his responses. He reports that he just "loves everybody." As per discussion with staff, the patient has been sleeping.Reportedly, the patient is initially well with the addition of Seroquel and some sleep however has regressed back to his psychotic and manic-like behavior. Mental Status Exam: General Appearance: Patient appears to be stated age is alert, directable, and cooperative. Behavior: Patient is lying down in bed with slightly elevated psychomotor activity. Eye contact is appropriate. Intrusive and touchy. Speech: Patient's speech is fluent and nonpressured. Hyperverbal and nonlinear. Mood/Affect: Mood is "sad", affect is congruent and tearful. Expansive. Suicidality/Homicidality: Patient denies having any suicidal or homicidal ideation intent or plan. Perceptions: Patient denies any visual hallucinations and denies any auditory hallucinations Though content/process: He appears to be grossly disorganized. Memory and concentration: Alert and oriented to person, year, and place. He mistakes the president. Judgment and insight: Poor. Assessment Acute psychosis Epiglottic cancer status post radiation therapy Hyponatremia Cardiomyopathy Chronic alcohol use Tobacco use disorder Plan: -At this time patient DOES NOT meet criteria for inpatient psychiatric admission. The patient's presentation of a new onset psychosis this latent age with no significant risk factors for mental illness including no family history, no previous psychiatric history, no drug abuse history, and the rapid onset of symptoms is atypical for a psychiatric diagnosis. However, if the workup continues to be negative, we will look at having the patient being admitted to a psychiatric unit for further stabilization. -Delirium precautions recommended with patient including - avoiding use of narcotics and [employer] sedatives, limit anticholinergic medications when possible, frequent re-orientation, minimize use of restraints, open window shades during the day and close them at night -Would recommend the following medication changes/additions: Increase Seroquel to 150 mg by mouth at bedtime and 25 mg by mouth daily for mood stabilization Continue Zyprexa 2.5 mg IM when necessary for agitation -Continue your medical management -Psychiatry will continue to follow along
--- NOTE | 2022-03-09 15:22 | P.PN ---
Subjective Progress Note Date: 03/09/22 Hospital Course: Patient is a 66-year-old male with a past medical history of throat cancer status post radiation in remission since 2019, chronic back pain, chronic hyponatremia, seizures, cardiomyopathy, nicotine dependence, daily cannabis use, and alcohol abuse. He presented to the emergency department with a chief complaint of confusion, babbling speech, and abnormal behaviors x 5 days. Patient's at bedside reported that he has been writing down incomprehensible babbling words and letters over the past 5 days and his speech was incoherent and babbling and randomly changing subjects and had not been able to follow commands. She reported that he had been taking his medication as directed, no more or no less. She reported previous alcohol abuse, but stated he was no longer abusing alcohol and only drank a couple beers a week and denies any recent alcohol use. Patient does continue to have nicotine and marijuana. Pt's denied her having a previous psychiatric history or ever behaving in this manner. She denied any recent illnesses or rashes, denied history of shingles, denied recent fevers, chills, vomiting, diarrhea, or any other complaints. She reported normal appetite with no noted difficulties with swallowing. She denied any recent head injuries. She reported that last month her began having new onset seizure activity 2 events and was scheduled to meet with Dr Mejia, neurologist. In the emergency department patient un derwent full evaluation. CT brain negative for acute intracranial process revealing brain volume loss changes and bilateral cerebral white matter hypodensities likely secondary to age-related changes and chronic microvascular ischemic changes. EKG showing sinus rhythm at 84 bpm with a right bundle branch block. Vital signs stable with the exception of mild hypertension with blood pressure 161/103. CBC unremarkable. Coags normal findings. CMP unremarkable with the exception of mild hyponatremia with sodium of 134 and elevated alkaline phosphatase of 173. Troponin negative at less than 0.012. Urinalysis negative for blood or infection positive for 2+ ketones. Urine drug screen positive for marijuana. Patient was admitted services consultation to neurology and psychiatry. Patient was started on acyclovir every 8 hours for prophylactic treatment of herpes encephalitis, pending LP results. Neurology following consulted anesthesia for lumbar puncture. Psychiatry following, started patient on trial Seroquel 100 mg nightly for stabilization of mood and insomnia. MRI brain with and without contrast revealing age-related atrophic and chronic small vessel ischemic changes, no acute intercranial process noted. TSH, B12, folate, and ammonia levels all normal. Patient underwent lumbar puncture 03/08/22. HSV 1 and 2 negative. Acyclovir discontinued. CSF fluid resulting for elevated protein without nucleated cells and otherwise pending results. Physical exam: Patient seen and fully evaluated at bedside this morning around 9:30 AM. At this time patient was resting comfortably in bed. He was awake and alert and appeared to be in no acute distress. Upon further evaluation, patient again with moderate confusion and stuttering. Upon neurological examination patient was not able to follow simple commands. Patient quickly to reply yes to any activities or questions asked. HSV 1 and 2 negative. Acyclovir discontinued. CSF fluid resulting for elevated protein without nucleated cells and otherwise pending results. Psychiatry increased Seroquel to 25 mg each morning and 150 mg nightly. Discussed case with both psychiatry and neurology. Patient did have a reported episode of abdominal pain and a CT abdomen and pelvis was ordered. Patient to continue with neuro checks every 4 hours and appreciate further recommendations from psychiatry and neurology. Vital signs reviewed and stable. General: Nontoxic, no distress and appears stated age. Derm: Skin warm and dry, normal coloration for ethnicity. Head: Atraumatic, normocephalic and symmetric. Eyes: EOMs intact, no lid lag, and anicteric sclera Mouth: no lip lesions, mucus membranes moist Cardiovascular: regular rate and rhythm with normal S1S2, no murmur, positive posterior tibial pulses bilaterally, and cap refill < 2 seconds. Lungs: Respirations even, regular, and unlabored on room air. Lungs CTA bilaterally, no rhonchi, no rales, no wheezing, and no accessory muscle usage. Abdominal: soft, nontender to palpation, no guarding, no appreciable organomegaly Ext: ROM intact. No gross muscle atrophy, no edema, no contractures Neuro and Psych: Patient alert to person and place. Speech garbled with moderate stuttering, face symmetrical and patient is alert and awake sitting up in bed, moving all extremities independently and appears to have full strength, however would not follow commands such has finger to nose or heel to brooks. Patient has significant expressive aphasia and stuttering. Assessment and Plan of Care: Acute encephalopathy, unclear etiology neurogenic versus psychogenic Expressive aphasia with moderate stuttering, unclear whether neurogenic or psychogenic -CT head negative for acute intercranial process. -MRI brain with and without contrast revealing age-related atrophic and chronic small vessel ischemic changes, no acute intercranial process noted. -Neurology following -Psychiatry following, sincreased Seroquel to 25 mg each morning and 150 mg nightly for stabilization of mood and insomnia -TSH, B12, folate, and ammonia levels all normal -Patient underwent lumbar puncture 03/08/22. HSV 1 and 2 negative. Acyclovir discontinued. CSF fluid resulting for elevated protein without nucleated cells and otherwise pending results. -Continue Neuro checks every 4 hours. -Seizure and fall precautions in place. Chronic hyponatremia -Stable with sodium of 134, patient follows up outpatient with nephrology. Patient manages his chronic hyponatremia with sodium chloride tablets 1 g daily. -We will continue with daily sodium chloride tablets and patient to continue to follow up outpatient with nephrology. Hypertension -Monitor vital signs and continue daily medication regimen with metoprolol 25 mg twice daily. Hyperlipidemia -Continue daily medication regimen with atorvastatin. History of throat cancer status post radiation therapy -In remission since 2019, recommend outpatient follow-up with oncologist for long-term monitoring. CODE STATUS: Full code DVT prophylaxis: Lovenox Discussed with: Patient and RN, message left for patient's on voicemail at 3:11 PM Anticipated discharge date: Clinical course to determine Anticipated discharge place: Home A total of 35 minutes was spent on the care of this complex patient more than 50% of the time was spent in counseling and care coordination. I reviewed the documentation as provided by the TEDDY above, who is the original author of this note. I agree with the documented assessment and plan, with the following changes: none Objective - Vital Signs Vital signs: Vital Signs Temp 98.3 F 03/09/22 12:14 Pulse 76 03/09/22 12:14 Resp 18 03/09/22 12:14 BP 182/108 03/09/22 12:14 Pulse Ox 98 03/09/22 12:14 FiO2 Intake & Output 03/08/22 03/09/22 03/09/22 18:59 06:59 18:59 Intake Total 800 10 260 Output Total 400 1550 900 Balance 400 -1540 -640 Intake: IV 200 10 20 Invasive Line 2 10 20 Oral 600 240 Output: Urine 400 1550 900 Other: Voiding Method Urinal # Voids 1 2 - Labs CBC & Chem 7: 06/09/22 07:43 03/08/22 07:43 Labs: Abnormal Lab Results - Last 24 Hours (Table) 03/08/22 Range/Units 12:15 CSF Total Protein 90 H (12-60) mg/dL Microbiology - Last 24 Hours (Table) 03/08/22 12:15 CSF Gram Stain - Preliminary Cerebral Spinal Fluid CSF Culture - Preliminary
--- NOTE | 2022-03-09 15:37 | CT ---
EXAMINATION TYPE: CT abdomen pelvis wo/w con DATE OF EXAM: 03/09/2022 COMPARISON: NONE HISTORY: 66-year-old male AMS, new onset abdominal pain TECHNIQUE: Contiguous axial scanning of the abdomen and pelvis before and after administration of 100 ml Isovue 300 IV contrast. Delayed images through the kidneys and coronal/sagittal reconstructions performed. CT DLP: 1038.7 mGycm Automated exposure control for dose reduction was used. FINDINGS: Heart normal size with a small anterior basilar pericardial fluid measuring 5 mm thick. Visualized lower lungs show at least moderate centrilobular emphysema. Calcified granuloma basilar ri ght middle lobe and prominent strandy dependent atelectasis. No pleural effusion. Ectatic lower descending thoracic aorta at 2.9 cm in moderate atherosclerotic calcifications. These a therosclerotic calcifications continue into the iliac arteries. Suspect severe segmental stenosis at the distal left common iliac artery and proximal left external iliac artery. Moderate segmental steno sis right common iliac artery. Numerous subcentimeter hypodensities especially left liver lobe, too small fractured CT characterizat ion, likely small cysts. No biliary ductal dilatation. Portal venous system is patent. Gallbladder, right adrenal gland, spleen, and pancreas appear within normal limits. A 6 mm cortical cyst medial right kidney. 4 mm nonobstructive left renal calculus. Slight patchy areas of hypoenhancement within the bilateral kidneys probably due to the phase of imag ing on the intended delayed kidneys scan. Clinical correlation recommended. Mild thickening left adrenal gland without discrete nodularity. Possible moderate focal narrowing at the origin of the celiac axis. Circumaortic left renal vein. No dilated small bowel, free fluid, or free air. No mesenteric or retroperitoneal lymphadenopathy. There is moderate stool burden. Normal appendix. Breathing motion artifact. Left-sided colonic divert iculosis. No pericolonic inflammatory change. Bladder urine distended. Prostate gland measures 4.4 cm wide. No pelvic lymphadenopathy. Left-sided p elvic phleboliths. Mild pelvic free fluid noted, axial image 69, sagittal image 60. Bones: Marked degenerated dextroconvex scoliosis of the lumbar spine. Right lateral subluxation L2 on L3 and L3 on L4. Severe hypertrophic facet arthropathy. Mild to moderate right and mild left degener ative change at the hips. Old healed right posterior rib fracture deformities. IMPRESSION: 1. VERY SUBTLE PATCHY AREAS OF HYPOENHANCEMENT WITHIN THE BILATERAL KIDNEYS. THIS MAY BE DUE TO THE P HASE OF IMAGING ON THE INTENDED DELAYED KIDNEY SCAN. CORRELATE CLINICALLY TO EXCLUDE THE POSSIBILITY OF PYELONEPHRITIS. 2. MODERATE STOOL BURDEN. LEFT-SIDED SIGMOID DIVERTICULOSIS WITHOUT ACUTE DIVERTICULITIS. 4 mm nonobs tructive left renal calculus. 3. ATHEROSCLEROTIC CALCIFICATIONS ABDOMINAL AORTA AND ILIAC ARTERIES. SUSPECT SEVERE SEGMENTAL STENOS ES DISTAL LEFT COMMON AND PROXIMAL LEFT EXTERNAL ILIAC ARTERIES. POSSIBLE MODERATE STENOSIS AT THE OR IGIN OF THE CELIAC AXIS.
[2022-03-09] MEDS: amLODIPine 5 MG TAB PO SCH (18:14)
[2022-03-09] MEDS: ATORVASTATIN 10 MG TAB PO SCH (20:24)
[2022-03-09] MEDS: QUEtiapine 50 MG TAB PO SCH (20:24)
[2022-03-10] MEDS: SODIUM CHLORIDE 0.9% 1,000 ML IV SCH ×2 (04:51→16:28)
[2022-03-10] MEDS ORDERED: bisacodyL 5 MG TABLET.DR PO PRN (07:40)
[2022-03-10] MEDS ORDERED: MAGNESIUM CITRATE 296 ML BOTTLE PO ONE (07:41)
[2022-03-10 08:19] LABS: HCT 44.2 % (39.0-53.0); HGB 14.5 gm/dL (13.0-17.5); MCH 32.3 pg (25.0-35.0); MCHC 32.8 g/dL (31.0-37.0); MCV 98.5 fL (80.0-100.0); Mean Platelet Volume 7.6; Platelet Count 222 k/uL (150-450); RBC 4.49 m/uL (4.30-5.90); WBC 6.5 k/uL (3.8-10.6)
[2022-03-10] MEDS: SODIUM CHLORIDE TAB 1 GM TAB PO SCH (08:21)
[2022-03-10] MEDS: ASPIRIN 81 MG PO SCH (08:21)
[2022-03-10] MEDS: GABAPENTIN 300 MG CAP PO SCH ×3 (08:21→21:36)
[2022-03-10] MEDS: amLODIPine 5 MG TAB PO SCH (08:21)
[2022-03-10] MEDS: QUEtiapine 25 MG TAB PO SCH (08:21)
[2022-03-10] MEDS: FOLIC ACID 1 MG TAB PO SCH (08:21)
[2022-03-10] MEDS: METOPROLOL TARTRATE 25 MG TAB PO SCH ×2 (08:21→21:36)
[2022-03-10] MEDS: MULTIVITAMINS, THERA 1 EACH TAB PO SCH (08:21)
[2022-03-10] MEDS: levETIRAcetam 250 MG TAB PO SCH ×2 (08:21→21:36)
[2022-03-10] MEDS: ENOXAPARIN 40 MG/0.4 ML SYRINGE SQ SCH (08:21)
[2022-03-10 08:32] LABS: ALT 17 U/L (4-49); AST 22 U/L (17-59); African American GFR (CKD) >90 (>60 ml/min/1.73 sqM); Albumin 3.6 g/dL (3.5-5.0); Alkaline Phosphatase 129 U/L (38-126); Anion Gap 8 mmol/L; Blood Urea Nitrogen 5 mg/dL (9-20); Calcium 8.8 mg/dL (8.4-10.2); Carbon Dioxide 27 mmol/L (22-30); Chloride 104 mmol/L (98-107); Glucose 118 mg/dL (74-99); Magnesium 1.9 mg/dL (1.6-2.3); Non-African American GFR(CKD) >90 (>60 ml/min/1.73 sqM); Potassium 3.4 mmol/L (3.5-5.1); Sodium 139 mmol/L (137-145); Total Bilirubin 0.4 mg/dL (0.2-1.3); Total Protein 6.1 g/dL (6.3-8.2)
[2022-03-10] MEDS ORDERED: POTASSIUM CHLORIDE ER 20 MEQ TAB.ER PO STA (10:38)
--- NOTE | 2022-03-10 10:57 | P.PN ---
Subjective Progress Note Date: 03/10/22 Hospital Course: Patient is a 66-year-old male with a past medical history of throat cancer status post radiation in remission since 2019, chronic back pain, chronic hyponatremia, seizures, cardiomyopathy, nicotine dependence, daily cannabis use, and alcohol abuse. He presented to the emergency department with a chief complaint of confusion, babbling speech, and abnormal behaviors x 5 days. Patient's at bedside reported that he has been writing down incomprehensible babbling words and letters over the past 5 days and his speech was incoherent and babbling and randomly changing subjects and had not been able to follow commands. She reported that he had been taking his medication as directed, no more or no less. She reported previous alcohol abuse, but stated he was no longer abusing alcohol and only drank a couple beers a week and denies any recent alcohol use. Patient does continue to have nicotine and marijuana. Pt's denied her having a previous psychiatric history or ever behaving in this manner. She denied any recent illnesses or rashes, denied history of shingles, denied recent fevers, chills, vomiting, diarrhea, or any other complaints. She reported normal appetite with no noted difficulties with swallowing. She denied any recent head injuries. She reported that last month her began having new onset seizure activity 2 events and was scheduled to meet with Dr Mejia, neurologist. In the emergency department patient un derwent full evaluation. CT brain negative for acute intracranial process revealing brain volume loss changes and bilateral cerebral white matter hypodensities likely secondary to age-related changes and chronic microvascular ischemic changes. EKG showing sinus rhythm at 84 bpm with a right bundle branch block. Vital signs stable with the exception of mild hypertension with blood pressure 161/103. CBC unremarkable. Coags normal findings. CMP unremarkable with the exception of mild hyponatremia with sodium of 134 and elevated alkaline phosphatase of 173. Troponin negative at less than 0.012. Urinalysis negative for blood or infection positive for 2+ ketones. Urine drug screen positive for marijuana. Patient was admitted services consultation to neurology and psychiatry. Patient was started on acyclovir every 8 hours for prophylactic treatment of herpes encephalitis, pending LP results. Neurology following consulted anesthesia for lumbar puncture. Psychiatry following, started patient on trial Seroquel 100 mg nightly for stabilization of mood and insomnia. MRI brain with and without contrast revealing age-related atrophic and chronic small vessel ischemic changes, no acute intercranial process noted. TSH, B12, folate, and ammonia levels all normal. Patient underwent lumbar puncture 03/08/22. HSV 1 and 2 negative. Acyclovir discontinued. CSF fluid resulting for elevated protein without nucleated cells and otherwise pending results. Patient reported experiencing lower abdominal pain 03/09/[address] abdomen and pelvis with contrast. CT revealing moderate stool burden and left sigmoid diverticulosis without acute diverticulitis, 4 mm nonobstructive left renal calculi, and atherosclerotic calcifications of abdominal aorta and iliac arteries suspect severe segmental stenosis distal left common and proximal left external iliac arteries and possible moderate stenosis at the origin of the celiac axis. CT also revealed subtle patchy areas of hypoenhancement within bilateral kidneys possibly secondary to phase of imaging but could not rule out pyelonephritis, no concerns for pyelonephritis at this time, No white count, no fevers, Urinalysis negative for infection and patient is asymptomatic for these complaints. Patient will need to follow up outpatient with vascular surgery secondary to findings of moderate and severe stenosis. Patient is also asymptomatic for these complaints denying any claudication, numbness or weakness of lower extremities. Physical exam: Patient seen and fully evaluated at bedside this morning. His mentation has improved and upon time of assessment he was alert to person, place, and time. Pt tearful this morning and reports he wants to go home to his dog and kids. At this time patient was resting comfortably in bed. He was awake and alert and appeared to be in no acute distress. Morning labs remain unremarkable with the exception of mild hypokalemia with potassium of 3.4, being replaced. Patient reported experiencing lower abdominal pain yesterday afternoon and underwent a CT abdomen and pelvis with contrast. CT revealing moderate stool burden and left sigmoid diverticulosis without acute diverticulitis, 4 mm nonobstructive left renal calculi, and atherosclerotic calcifications of abdominal aorta and iliac arteries suspect severe segmental stenosis distal left common and proximal left external iliac arteries and possible moderate stenosis at the origin of the celiac axis. CT also revealed subtle patchy areas of hypoenhancement within bilateral kidneys possibly secondary to phase of imaging but could not rule out pyelonephritis, no concerns for pyelonephritis at this time, No white count, no fevers, Urinalysis negative for infection and patient is asymptomatic for these complaints. Vital signs reviewed and stable. General: Nontoxic, no distress and appears stated age. Derm: Skin warm and dry, normal coloration for ethnicity. Head: Atraumatic, normocephalic and symmetric. Eyes: EOMs intact, no lid lag, and anicteric sclera Mouth: no lip lesions, mucus membranes moist Cardiovascular: regular rate and rhythm with normal S1S2, no murmur, positive posterior tibial pulses bilaterally, and cap refill < 2 seconds. Lungs: Respirations even, regular, and unlabored on room air. Lungs CTA bilaterally, no rhonchi, no rales, no wheezing, and no accessory muscle usage. Abdominal: soft, nontender to palpation, no guarding, no appreciable organomegaly Ext: ROM intact. No gross muscle atrophy, no edema, no contractures Neuro and Psych: Patient alert to person and place. Speech garbled with moderate stuttering, face symmetrical and patient is alert and awake sitting up in bed, moving all extremities independently and appears to have full strength, however would not follow commands such has finger to nose or heel to brooks. Patient has significant expressive aphasia and stuttering. Assessment and Plan of Care: Acute encephalopathy, unclear etiology neurogenic versus psychogenic Expressive aphasia with moderate stuttering, unclear whether neurogenic or psychogenic -CT head negative for acute intercranial process. -MRI brain with and without contrast revealing age-related atrophic and chronic small vessel ischemic changes, no acute intercranial process noted. -Neurology following -Psychiatry following, sincreased Seroquel to 25 mg each morning and 150 mg nightly for stabilization of mood and insomnia -TSH, B12, folate, and ammonia levels all normal -Patient underwent lumbar puncture 03/08/22. HSV 1 and 2 negative. Acyclovir discontinued. CSF fluid resulting for elevated protein without nucleated cells and otherwise pending results. -Continue Neuro checks every 4 hours. -Seizure and fall precautions in place. Constipation -CT abdomen and pelvis revealing Moderate stool burden, patient to be given mag citrate 1 dose -Monitor I's and O's Severe segmental stenosis distal left common and proximal left external iliac arteries and possible moderate stenosis at the origin of the celiac axis. -CT abdomen and pelvis with contrast revealing atherosclerotic calcifications of abdominal aorta and iliac arteries suspect severe segmental stenosis distal left common and proximal left external iliac arteries and possible moderate stenosis at the origin of the celiac axis. -Patient will need to follow up outpatient with vascular surgery secondary to findings of moderate and severe stenosis. Patient is also asymptomatic for these complaints denying any claudication, numbness or weakness of lower extremities. Hypoenhancement within bilateral kidneys -Possibly secondary to phase of imaging but CT could not rule out pyelonephritis -Clinically there are no concerns for pyelonephritis at this time, No white count, no fevers, Urinalysis negative for infection and patient is asymptomatic for these complaints. Chronic hyponatremia -Stable with sodium of 134, patient follows up outpatient with nephrology. Patient manages his chronic hyponatremia with sodium chloride tablets 1 g daily. -We will continue with daily sodium chloride tablets and patient to continue to follow up outpatient with nephrology. Hypertension -Monitor vital signs and continue daily medication regimen with metoprolol 25 mg twice daily. Hyperlipidemia -Continue daily medication regimen with atorvastatin. History of throat cancer status post radiation therapy -In remission since 2019, recommend outpatient follow-up with oncologist for long-term monitoring. CODE STATUS: Full code DVT prophylaxis: Lovenox Discussed with: Patient and RN Anticipated discharge date: Clinical course to determine Anticipated discharge place: Home A total of 33 minutes was spent on the care of this complex patient more than 50% of the time was spent in counseling and care coordination. I reviewed the documentation as provided by the TEDDY above, who is the original author of this note. I agree with the documented assessment and plan, with the following changes: None Objective - Vital Signs Vital signs: Vital Signs Temp 98.0 F 03/10/22 04:00 Pulse 80 03/10/22 04:00 Resp 16 03/10/22 04:00 BP 130/90 03/10/22 04:00 Pulse Ox 96 03/10/22 04:00 FiO2 Intake & Output 03/09/22 03/10/22 03/10/22 18:59 06:59 18:59 Intake Total 260 10 Output Total 1700 1100 200 Balance -1440 -1090 -200 Intake: IV 20 10 Invasive Line 2 20 10 Oral 240 Output: Urine 1700 1100 200 Other: Voiding Method Urinal # Voids 2 # Bowel Movements 0 - Labs CBC & Chem 7: 03/10/22 08:02 03/10/22 08:02 Labs: Microbiology - Last 24 Hours (Table) 03/08/22 12:15 CSF Gram Stain - Preliminary Cerebral Spinal Fluid CSF Culture - Preliminary
--- NOTE | 2022-03-10 12:39 | P.PN ---
Subjective Progress Note Date: 03/10/22 The patient is seen at bedside and feels he is doing better. Spoke with primary team and felt today he is better compared to yesterday. Objective - Vital Signs Vital signs: Vital Signs Temp 98.2 F 03/10/22 08:20 Pulse 83 03/10/22 08:20 Resp 16 03/10/22 08:20 BP 153/103 03/10/22 08:20 Pulse Ox 95 03/10/22 08:20 FiO2 Intake & Output 03/09/22 03/10/22 03/10/22 18:59 06:59 18:59 Intake Total 260 10 240 Output Total 1700 1100 450 Balance -1440 -1090 -210 Intake: IV 20 10 Invasive Line 2 20 10 Oral 240 240 Output: Urine 1700 1100 450 Other: Voiding Method Urinal # Voids 2 # Bowel Movements 0 - Exam GENERAL: The patient is sitting in a chair and is not in acute distress. Patient is cachectic. NEUROLOGICAL: Higher mental function: Patient is awake, alert, oriented to self, time. He stated he is in the hospital. He is able to follow some simple commands. Is tangential and taking about random things. Is not aphasic. No neglect. Cranial Nerves: Pupils are round, equal and reactive. VFF to confrontation. No facial weakness. No dysarthria. Motor: Strength: Normal throughout. Some of the workup during this hospital visit consisted of: Urinalysis negative for urinary tract infection. Urine drug screen is marijuana is detected otherwise rest is not detected in the serum alcohol was less than 10. CT of the head which reported as no acute intracranial hemorrhage or gross acute cortical infarct. I personally reviewed the CT the head and I agree with the report. MR the brain is reported as age-related atrophy and chronic small vessel ischemic change. No acute intracranial process seen at this time. No enhancing lesion are seen. I personally reviewed the MRI and agree that there is no acute or subacute ischemic stroke and there is no enhancing lesion. Routine EEG on 03/07/2022 is normal. There is no focal slowing, epileptiform discharges or seizure in the EEG. CSF: Clear, colorless, rbc 0, nucleated cell 0, glucose 53, protein 90 (normal is 12-60). HSV I/II PCR is not detect. Treponema Pallidum Ab: Nonreactive. Viral test panel CSF is not detect. - Labs CBC & Chem 7: 03/10/22 08:02 03/10/22 08:02 Labs: Abnormal Lab Results - Last 24 Hours (Table) 03/10/22 Range/Units 08:02 Potassium 3.4 L (3.5-5.1) mmol/L BUN 5 L (9-20) mg/dL Glucose 118 H (74-99) mg/dL Alkaline Phosphatase 129 H (38-126) U/L Total Protein 6.1 L (6.3-8.2) g/dL Microbiology - Last 24 Hours (Table) 03/08/22 12:15 CSF Gram Stain - Preliminary Cerebral Spinal Fluid CSF Culture - Preliminary Assessment and Plan Assessment: Encephalopathy of unknown etiology (patient has been confused, pyshcotic/manic symptoms, talking tangential, has not slept in 4 days prior to presenting to hospital). CSF: has elevated protein of unknown cause but 0 nucleated cells, afebrile and no leukocytosis. Rule out encephalitis (NMDA encephalitis) especially with hx of cancer (has lost 14 lbs in last one month that is unintentional). MRI Brain is negative for mets and routine EEG is normal---patient having fluctuation of confusion (so far every other day in our hospital he is either doing better or worse). 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 Last drink is this past Saturday) Ongoing tobacco use Plan: CSF: has elevated protein of unknown cause but 0 nucleated cells, afebrile and no leukocytosis. NMDA receptor antibody blood ordered STAT ON 03/09/2022 (her CSF testing and cytology was cancelled without our team informed and was told could not perform it). Continue home Keppra 250 mg twice a day Spoke with primary regarding obtain whole body PET scan but it was notified will be difficult as inpatient as likely as outpatient because of insurance issues. Recommend as outpatient. Every 4 hours neuro checks Psychiatry has him on Seroquel 100mg qhs and Zyprexa PRN. Recommend oncology consultation especially with unintentional weight loss and history of cancer. Psychiatry team is on board. We'll defer the rest of the medical management to primary team. The plan is discussed with primary team. Jayden Cunningham M.D. Neuro-Hospitalist Time with Patient: Less than 30
--- NOTE | 2022-03-10 13:03 | P.PN ---
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 Plan: The patient has started to show improvement Patient was able to have a conversation on wide range of topics including the nunez in [facility] and the current shootings Patient is alert and oriented to place and person -At this time patient DOES NOT meet criteria for inpatient psychiatric admission. -Delirium precautions recommended with patient including - avoiding use of narcotics and [employer] sedatives, limit anticholinergic medications when possible, frequent re-orientation, minimize use of restraints, open window shades during the day and close them at night -Would recommend the following medication changes/additions: Continue Seroquel to 150 mg by mouth at bedtime and 25 mg by mouth daily for mood stabilization Continue Zyprexa 2.5 mg IM when necessary for agitation -Continue your medical management -Psychiatry will continue to follow along Bernabe Serrano M.D. 03/10/2022 Objective - Vital Signs Vital signs: Vital Signs Temp 98.0 F 03/10/22 12:35 Pulse 71 03/10/22 12:35 Resp 16 03/10/22 12:35 BP 143/94 03/10/22 12:35 Pulse Ox 97 03/10/22 12:35 FiO2 Intake & Output 03/09/22 03/10/22 03/10/22 18:59 06:59 18:59 Intake Total 260 10 240 Output Total 1700 1100 450 Balance -1440 -1090 -210 Intake: IV 20 10 Invasive Line 2 20 10 Oral 240 240 Output: Urine 1700 1100 450 Other: Voiding Method Urinal # Voids 2 # Bowel Movements 0 - Labs CBC & Chem 7: 03/10/22 08:02 03/10/22 08:02 Labs: Abnormal Lab Results - Last 24 Hours (Table) 03/10/22 Range/Units 08:02 Potassium 3.4 L (3.5-5.1) mmol/L BUN 5 L (9-20) mg/dL Glucose 118 H (74-99) mg/dL Alkaline Phosphatase 129 H (38-126) U/L Total Protein 6.1 L (6.3-8.2) g/dL Microbiology - Last 24 Hours (Table) 03/08/22 12:15 CSF Gram Stain - Preliminary Cerebral Spinal Fluid CSF Culture - Preliminary
[2022-03-10] MEDS: QUEtiapine 50 MG TAB PO SCH (21:36)
[2022-03-10] MEDS: ATORVASTATIN 10 MG TAB PO SCH (21:36)
[2022-03-11] MEDS: SODIUM CHLORIDE 0.9% 1,000 ML IV SCH (06:40)
[2022-03-11] MEDS: amLODIPine 5 MG TAB PO SCH (09:17)
[2022-03-11] MEDS: ENOXAPARIN 40 MG/0.4 ML SYRINGE SQ SCH (09:17)
[2022-03-11] MEDS: levETIRAcetam 250 MG TAB PO SCH ×2 (09:17→23:03)
[2022-03-11] MEDS: ASPIRIN 81 MG PO SCH (09:17)
[2022-03-11] MEDS: GABAPENTIN 300 MG CAP PO SCH ×3 (09:17→21:28)
[2022-03-11] MEDS: FOLIC ACID 1 MG TAB PO SCH (09:17)
[2022-03-11] MEDS: MULTIVITAMINS, THERA 1 EACH TAB PO SCH (09:17)
[2022-03-11] MEDS: SODIUM CHLORIDE TAB 1 GM TAB PO SCH (09:17)
[2022-03-11] MEDS: QUEtiapine 25 MG TAB PO SCH (09:17)
[2022-03-11] MEDS: METOPROLOL TARTRATE 25 MG TAB PO SCH ×2 (09:18→21:29)
--- NOTE | 2022-03-11 16:23 | P.PN ---
Subjective Progress Note Date: 03/11/22 Patient is a 66-year-old male with a past medical history of throat cancer status post radiation in remission since 2019, chronic back pain, chronic hyponatremia, seizures, cardiomyopathy, nicotine dependence, daily cannabis use, and alcohol abuse. He presented to the emergency department with a chief complaint of confusion, babbling speech, and abnormal behaviors x 5 days. Patient's at bedside reported that he has been writing down incomprehensible babbling words and letters over the past 5 days and his speech was incoherent and babbling and randomly changing subjects and had not been able to follow commands. She reported that he had been taking his medication as directed, no more or no less. She reported previous alcohol abuse, but stated he was no longer abusing alcohol and only drank a couple beers a week and denies any recent alcohol use. Patient does continue to have nicotine and marijuana. Pt's denied her having a previous psychiatric history or ever behaving in this manner. She denied any recent illnesses or rashes, denied history of shingles, denied recent fevers, chills, vomiting, diarrhea, or any other complaints. She reported normal appetite with no noted difficulties with swallowing. She denied any recent head injuries. She reported that last month her began having new onset seizure activity 2 events and was scheduled to meet with Dr Mejia, neurologist. In the emergency department patient underwent full evaluation. CT brain negative for acute intracranial process revealing brain volume loss changes and bilateral cerebral white matter hypodensities likely secondary to age-related changes and chronic microvascular ischemic changes. MRI brain with and without contrast revealing age-related atrophic and chronic small vessel ischemic changes, no acute intercranial process noted. TSH, B12, folate, and ammonia levels all normal. Patient underwent lumbar puncture 03/08/22. HSV 1 and 2 negative. Acyclovir discontinued. Currently mental status improving with surgical treatment. Patient seen by psychiatrically. Subjective Patient seen and evaluated at bedside, today patient does not report any worsening of his breathing or report any new significant chest pain. Patient remains in no acute distress. Patient questions and concerns addressed at bedside, proper counseling done. Plan discussed with nursing staff. Assessment and Plan of Care: Acute encephalopathy, unclear etiology neurogenic versus psychogenic CT and MRI negative TSH, B12, folate, and ammonia levels all normal Patient underwent lumbar puncture 03/08/22. HSV 1 and 2 negative. Acyclovir discontinued. CSF fluid resulting for elevated protein without nucleated cells and otherwise pending results. Currently doing better with current dose of Seroquel one 50 mg at bedtime and 25 mg in the daytime, continue Zyprexa as needed A pressure recommendation from psychiatrically Constipation CT abdomen and pelvis revealing Moderate stool burden Continue bowel regimen Severe segmental stenosis distal left common and proximal left external iliac arteries and possible moderate stenosis at the origin of the celiac axis. Patient will need to follow with vascular surgery as an outpatient Chronic hyponatremia Stable Patient will need follow with nephrology as an outpatient Hypertension Stable continue metoprolol Hyperlipidemia Continue atorvastatin History of throat cancer status post radiation therapy -In remission since 2019, recommend outpatient follow-up with oncologist for long-term monitoring. DVT prophylaxis: Subcutaneous heparin CODE STATUS: Full code Discharge plan/next site of care: Possible discharge to home tomorrow Objective - Vital Signs Vital signs: Vital Signs Temp 97.9 F 03/11/22 08:00 Pulse 80 03/11/22 08:00 Resp 14 03/11/22 08:00 BP 156/89 03/11/22 08:00 Pulse Ox 100 03/11/22 08:00 FiO2 Intake & Output 03/10/22 03/11/22 03/11/22 18:59 06:59 18:59 Intake Total 870 476 Output Total 450 Balance 420 476 Intake: IV 10 Invasive Line 3 10 Oral 860 476 Output: Urine 450 Other: Voiding Method Toilet Toilet # Voids 4 1 General: non toxic, no acute distress, alert oriented to time place and person Head: atraumatic, normocephalic, symmetric Eyes: no lid lesion], anicteric sclera Mouth: no lip lesion, mucus membranes moist Cardiovascular: S1S2 reg rate and rhythm, no murmur, no gallop Lungs: Bilateral equal air entry, no wheezing no rhonchi no crackles. Abdominal: soft, nontender to palpation, no guarding, no appreciable organomegaly Ext: no gross muscle atrophy, no edema extremities warm to suppose a positive Neuro: Alert oriented to time place and person, exam grossly nonfocal Psych: Mood and affect appropriate, patient not so certain Skin exam: No rashes no jaundice. - Labs CBC & Chem 7: 03/10/22 08:02 03/10/22 08:02 Labs: Microbiology - Last 24 Hours (Table) 03/08/22 12:15 CSF Gram Stain - Preliminary Cerebral Spinal Fluid CSF Culture - Preliminary
[2022-03-11] MEDS: QUEtiapine 50 MG TAB PO SCH (21:29)
[2022-03-11] MEDS: ATORVASTATIN 10 MG TAB PO SCH (21:29)
[2022-03-12 08:00] LABS: Basophils % (A) 1 %; Eosinophils # (A) 0.2 k/uL (0-0.7); Eosinophils % (A) 4 %; HCT 45.6 % (39.0-53.0); HGB 15.1 gm/dL (13.0-17.5); Lymphocytes # (A) 0.7 k/uL (1.0-4.8); Lymphocytes % (A) 15 %; MCH 32.7 pg (25.0-35.0); MCHC 33.1 g/dL (31.0-37.0); MCV 98.9 fL (80.0-100.0); Mean Platelet Volume 8.2; Monocytes # (A) 0.3 k/uL (0-1.0); Monocytes % (A) 6 %; Neutrophils # (A) 3.4 k/uL (1.3-7.7); Neutrophils % (A) 72 %; Platelet Count 231 k/uL (150-450); RBC 4.61 m/uL (4.30-5.90); RDW 14.1 % (11.5-15.5); WBC 4.7 k/uL (3.8-10.6)
[2022-03-12 08:40] LABS: African American GFR (CKD) >90 (>60 ml/min/1.73 sqM); Anion Gap 10 mmol/L; Blood Urea Nitrogen 5 mg/dL (9-20); Calcium 9.3 mg/dL (8.4-10.2); Carbon Dioxide 23 mmol/L (22-30); Chloride 105 mmol/L (98-107); Glucose 74 mg/dL (74-99); Non-African American GFR(CKD) >90 (>60 ml/min/1.73 sqM); Potassium 4.7 mmol/L (3.5-5.1); Sodium 138 mmol/L (137-145)
[2022-03-12] MEDS: SODIUM CHLORIDE 0.9% 1,000 ML IV SCH (08:48)
[2022-03-12] MEDS: ENOXAPARIN 40 MG/0.4 ML SYRINGE SQ SCH (09:06)
[2022-03-12] MEDS: MULTIVITAMINS, THERA 1 EACH TAB PO SCH (09:07)
[2022-03-12] MEDS: ASPIRIN 81 MG PO SCH (09:07)
[2022-03-12] MEDS: SODIUM CHLORIDE TAB 1 GM TAB PO SCH (09:07)
[2022-03-12] MEDS: GABAPENTIN 300 MG CAP PO SCH (09:07)
[2022-03-12] MEDS: amLODIPine 5 MG TAB PO SCH (09:07)
[2022-03-12] MEDS: METOPROLOL TARTRATE 25 MG TAB PO SCH (09:07)
[2022-03-12] MEDS: FOLIC ACID 1 MG TAB PO SCH (09:07)
[2022-03-12] MEDS: levETIRAcetam 250 MG TAB PO SCH (09:08)
[2022-03-12] MEDS: QUEtiapine 25 MG TAB PO SCH (09:08)
[2022-03-12 11:05] VITALS: TEMP 98.2
[2022-03-12 12:36] VITALS: BP 134/79; RESP 14
[2022-03-12 13:04] VITALS: PULSE 65
--- NOTE | 2022-03-12 14:22 | P.PN ---
Progress Note - Text Progress Note Date: 03/12/22 Interval History: Patient was seen sitting in his chair in his room. Currently, the patient is alert and oriented in all spheres. He presents as bright and active. He is anticipating discharge today. He is vehemently denying any suicidal or homicidal ideation, intention, and/or plan. He reports no auditory or visual hallucinations. He denies any paranoia or other delusions. The patient makes no mention of any grandiose statements or any delusional beliefs. The patient is also reportedly sleeping well. He denies any side effects to his medications and has been adherent. He is able to identify the correct president today. Mental Status Exam: General Appearance: Patient appears to be stated age is alert, directable, and cooperative. Behavior: Patient is Sitting down in his chair. Normal psychomotor activity. Speech: Patient's speech is fluent and nonpressured. Spontaneous with normal rate, tone, and volume. Mood/Affect: Mood is "Feeling good", affect is congruent and Bright. Slightly expansive. Suicidality/Homicidality: Patient denies having any suicidal or homicidal ideation intent or plan. Perceptions: Patient denies any visual hallucinations and denies any auditory hallucinations Though content/process: The patient is much more linear and logical in conversation today. Memory and concentration: Alert and oriented in all spheres. Concentration appears to be fair. Judgment and insight: Improved Vital Signs Temp 98.2 F 03/12/22 12:00 Pulse 65 03/12/22 13:02 Resp 14 03/12/22 13:02 BP 134/79 03/12/22 12:00 Pulse Ox 98 03/12/22 12:00 FiO2 Intake & Output 03/11/22 03/12/22 03/12/22 18:59 06:59 18:59 Intake Total 836 920 Output Total 300 Balance 836 620 Intake: Intake, IV Titration 200 Amount Sodium Chloride 0.9% 1, 200 000 ml @ 75 mls/hr IV . [id number] MILDRED Rx#:[id number] Oral 836 720 Output: Urine 300 Other: Voiding Method Toilet Toilet Toilet # Voids 1 1 Laboratory Results WBC 4.7 k/uL (3.8-10.6) 03/12/22 07:20 RBC 4.61 m/uL (4.30-5.90) 03/12/22 07:20 Hgb 15.1 gm/dL (13.0-17.5) 03/12/22 07:20 Hct 45.6 % (39.0-53.0) 03/12/22 07:20 MCV 98.9 fL (80.0-100.0) 03/12/22 07:20 MCH 32.7 pg (25.0-35.0) 03/12/22 07:20 MCHC 33.1 g/dL (31.0-37.0) 03/12/22 07:20 RDW 14.1 % (11.5-15.5) 03/12/22 07:20 Plt Count 231 k/uL (150-450) 03/12/22 07:20 MPV 8.2 03/12/22 07:20 Neutrophils % 72 % 03/12/22 07:20 Lymphocytes % 15 % 03/12/22 07:20 Monocytes % 6 % 03/12/22 07:20 Eosinophils % 4 % 03/12/22 07:20 Basophils % 1 % 03/12/22 07:20 Neutrophils # 3.4 k/uL (1.3-7.7) 03/12/22 07:20 Lymphocytes # 0.7 k/uL (1.0-4.8) L 03/12/22 07:20 Monocytes # 0.3 k/uL (0-1.0) 03/12/22 07:20 Eosinophils # 0.2 k/uL (0-0.7) 03/12/22 07:20 Basophils # 0.0 k/uL (0-0.2) 03/12/22 07:20 PT 11.0 sec (9.0-12.0) 03/06/22 10:39 INR 1.0 (<1.2) 03/06/22 10:39 APTT 28.2 sec (22.0-30.0) 03/06/22 10:39 Sodium 138 mmol/L (137-145) 03/12/22 07:20 Potassium 4.7 mmol/L (3.5-5.1) 03/12/22 07:20 Chloride 105 mmol/L (98-107) 03/12/22 07:20 Carbon Dioxide 23 mmol/L (22-30) 03/12/22 07:20 Anion Gap 10 mmol/L 03/12/22 07:20 BUN 5 mg/dL (9-20) L 03/12/22 07:20 Creatinine 0.58 mg/dL (0.66-1.25) L 03/12/22 07:20 Est GFR (CKD-EPI)AfAm >90 (>60 ml/min/1.73 sqM) 03/12/22 07:20 Est GFR (CKD-EPI)NonAf >90 (>60 ml/min/1.73 sqM) 03/12/22 07:20 Glucose 74 mg/dL (74-99) 03/12/22 07:20 Calcium 9.3 mg/dL (8.4-10.2) 03/12/22 07:20 Magnesium 1.9 mg/dL (1.6-2.3) 03/10/22 08:02 Total Bilirubin 0.4 mg/dL (0.2-1.3) 03/10/22 08:02 AST 22 U/L (17-59) 03/10/22 08:02 ALT 17 U/L (4-49) 03/10/22 08:02 Alkaline Phosphatase 129 U/L (38-126) H 03/10/22 08:02 Ammonia <9 umol/L (<30) 03/06/22 14:08 Troponin I <0.012 ng/mL (0.000-0.034) 03/06/22 10:39 Total Protein 6.1 g/dL (6.3-8.2) L 03/10/22 08:02 Albumin 3.6 g/dL (3.5-5.0) 03/10/22 08:02 Vitamin B12 1197.0 pg/mL (200.0-944.0) H 03/06/22 15:02 Folate >20.00 ng/mL (4.40-31.00) 03/06/22 15:02 TSH 1.880 mIU/L (0.465-4.680) 03/06/22 10:39 Urine Color Yellow 03/06/22 10:39 Urine Appearance Clear (Clear) 03/06/22 10:39 Urine pH 5.5 (5.0-8.0) 03/06/22 10:39 Ur Specific [place] 1.021 (1.001-1.035) 03/06/22 10:39 Urine Protein Negative (Negative) 03/06/22 10:39 Urine Glucose (UA) Negative (Negative) 03/06/22 10:39 Urine Ketones 2+ (Negative) H 03/06/22 10:39 Urine Blood Negative (Negative) 03/06/22 10:39 Urine Nitrite Negative (Negative) 03/06/22 10:39 Urine Bilirubin Negative (Negative) 03/06/22 10:39 Urine Urobilinogen <2.0 mg/dL (<2.0) 03/06/22 10:39 Ur Leukocyte Esterase Negative (Negative) 03/06/22 10:39 CSF Tube Number 4 03/08/22 12:15 CSF Volume 1.5 03/08/22 12:15 CSF Appearance Clear 03/08/22 12:15 CSF Color Colorless 03/08/22 12:15 CSF RBC 0 u/L (0-10) 03/08/22 12:15 CSF Tot Nucleated Cells 0 u/L (0-5) 03/08/22 12:15 CSF Glucose 53 mg/dL (40-70) 03/08/22 12:15 CSF Adenosine Deaminase <1 U/L (0-9) 03/08/22 12:15 CSF Total Protein 90 mg/dL (12-60) H 03/08/22 12:15 Urine Opiates Screen Not Detected (NotDetected) 03/06/22 10:39 Ur Oxycodone Screen Not Detected (NotDetected) 03/06/22 10:39 Urine Methadone Screen Not Detected (NotDetected) 03/06/22 10:39 Ur Propoxyphene Screen Not Detected (NotDetected) 03/06/22 10:39 Ur Barbiturates Screen Not Detected (NotDetected) 03/06/22 10:39 U Tricyclic Antidepress Not Detected (NotDetected) 03/06/22 10:39 Ur Phencyclidine Scrn Not Detected (NotDetected) 03/06/22 10:39 Ur Amphetamines Screen Not Detected (NotDetected) 03/06/22 10:39 U Methamphetamines Scrn Not Detected (NotDetected) 03/06/22 10:39 U Benzodiazepines Scrn Not Detected (NotDetected) 03/06/22 10:39 Urine Cocaine Screen Not Detected (NotDetected) 03/06/22 10:39 U Marijuana (THC) Screen Detected (NotDetected) H 03/06/22 10:39 Serum Alcohol <10 mg/dL 03/06/22 15:02 Treponema pallidum Ab Nonreactive (Nonreactive) 03/09/22 15:06 HSV I DNA PCR Not detected (Not detected) 03/08/22 12:15 HSV II DNA PCR Not detected (Not detected) 03/08/22 12:15 HSV (PCR) Source 03/08/22 12:15 Virus Source 03/08/22 12:15 Viral Test See Below 03/08/22 12:15 Virus Analysis Interp See Below 03/08/22 12:15 Miscellaneous Test NMDA Rcptr AB 03/09/22 15:06 Misc Test Result See Comment 03/09/22 15:06 Assessment Acute psychosis - Appears resolved Epiglottic cancer status post radiation therapy Hyponatremia - Resolved. Cardiomyopathy Chronic alcohol use Tobacco use disorder Plan: -At this time patient DOES NOT meet criteria for inpatient psychiatric admission. Currently, the patient is not endorsing any significant symptoms of psychosis or displaying any significant symptoms of a manic episode. He is been eating and sleeping well. He has been adherent with his medications and is not presenting with any imminent risk of harm to self or others. -Delirium precautions recommended with patient including - avoiding use of narcotics and [employer] sedatives, limit anticholinergic medications when possible, frequent re-orientation, minimize use of restraints, open window shades during the day and close them at night -Would recommend the following medication changes/additions: Continue Seroquel 25 mg by mouth every morning and 150 mg by mouth daily at bedtime for mood stabilization/acute psychosis -Recommend outpatient psychiatric follow-up. -The patient is cleared psychiatrically for discharge. Psychiatry will sign off at this time. Please reconsult us or call us with any questions or concerns. Thank you for this consult.
--- NOTE | 2022-03-12 15:17 | P.DS ---
Providers Date of admission: 03/06/22 12:17 Attending physician: Deandra Snyder MD Consults: 03/06/22 12:18 Consult Physician Routine Consulting Provider: Jayden Cunningham Consult Reason/Comments: AMS, expressive aphasia Do you want consulting provider notified?: Yes Consult Physician Routine Consulting Provider: Roman West Consult Reason/Comments: AMS Do you want consulting provider notified?: Yes 03/07/22 14:33 Consult to Anesthesia Routine Consulting Provider: Anesthesia,Services Consult Reason/Comments: lumbar puncture/rule out encephalitis Primary care physician: [facility] Course: Patient is a 66-year-old male with a past medical history of throat cancer status post radiation in remission since 2019, chronic back pain, chronic hyponatremia, seizures, cardiomyopathy, nicotine dependence, daily cannabis use, and alcohol abuse. He presented to the emergency department with a chief complaint of confusion, babbling speech, and abnormal behaviors x 5 days. Patient's at bedside reports that he has been writing down incomprehensible babbling words and letters over the past 5 days and his speech is incoherent and babbling and randomly changing subjects and has not been able to follow commands. She reports that he has been taking his medication as directed, no more or no less. She reports previous alcohol abuse is no longer and patient only drinks a couple beers a week and denies any recent alcohol use. Patient does continue to have nicotine and marijuana use. She denies patient having a previous psychiatric history or ever behaving in this manner. She denies any recent illnesses or rashes, denies history of shingles, denies him having any fevers, chills, vomiting, diarrhea, or any other complaints. She reports normal appetite with no noted difficulties with swallowing. She denies any recent head injuries. She does report that her began experiencing seizure activity 2 events last month and was scheduled to meet with Dr Mejia, neurologist tomorrow. In the emergency department patient underwent full evaluation. CT brain negative for acute intracranial process revealing brain volume loss changes and bilateral cerebral white matter hypodensities likely secondary to age-related changes and chronic microvascular ischemic changes. EKG showing sinus rhythm at 84 bpm with a right bundle branch block. Vital signs stable with the exception of mild hypertension with blood pressure 161/103. CBC unremarkable. Coags normal findings. CMP unremarkable with the exception of mild hyponatremia with sodium of 134 and elevated alkaline phosphatase of 173. Troponin negative at less than 0.012. Urinalysis negative for blood or infection positive for 2+ ketones. Urine drug screen positive for marijuana. U pascale physical examination, patient is alert and awake sitting up in bed, moving all extremities independently and appears to have full strength, however would not follow commands such has finger to nose or heel to brooks. Patient has significant expressive aphasia and stuttering. Pupils were equal at 3 mm. Extraocular movements appear to be intact however again would not follow commands. Face is symmetrical. Patient denies having any complaints of pain and sensation is intact. Patient has been evaluated by neurology and psychiatry team. As per psychiatry no further intervention is required or inpatient hospitalization. Patient underwent MRI which showed age related atrophic and chronic vessel ischemic changes. No intracranial processes at the time or enhancing lesions were seen. CBC BMP reviewed has been reviewed patient's leukocytosis is resolved. Patient has test order that needs to be followed up outpatient as per nurse neurologist. Patient has been educated to follow-up regarding NMDA. Paraneoplastic panel within 1-2 weeks of discharge. At this time he denies any symptomatology case discussed with case management and RN present at bedside. CSF fluid was also analyzed clear except for total protein is elevated at 90. At this time the patient is okay to discharge from psychiatry and in her medicine and neurology perspective. Patient is asked to follow closely outside with [facility]. Patient Condition at Discharge: Stable Plan - Discharge Summary Discharge Rx Participant: No New Discharge Prescriptions: New QUEtiapine [SEROquel] 25 mg PO DAILY 30 Days tab Aspirin 81 mg PO DAILY 30 Days tab levETIRAcetam [Keppra] 250 mg PO Q12HR 30 Days #30 tab amLODIPine [Norvasc] 5 mg PO DAILY 30 Days #30 tab QUEtiapine [SEROquel] 150 mg PO HS 30 Days #30 tab Continue Metoprolol Tartrate [Lopressor] 25 mg PO BID Gabapentin [Neurontin] 600 mg PO TID Multivitamins, Thera [Multivitamin (formulary)] 1 tab PO DAILY Folic Acid 1 mg PO DAILY Sodium Chloride Tab 1 gm PO DAILY Lidocaine [Lidoderm 5% Patch] 1 patch TRANSDERM DAILY Atorvastatin [Lipitor] 10 mg PO HS Discharge Medication List Metoprolol Tartrate [Lopressor] 25 mg PO BID 01/29/14 [History] Gabapentin [Neurontin] 600 mg PO TID 02/18/20 [History] Multivitamins, Thera [Multivitamin (formulary)] 1 tab PO DAILY 08/22/21 [History] Folic Acid 1 mg PO DAILY 01/02/22 [History] Atorvastatin [Lipitor] 10 mg PO HS 03/06/22 [History] Lidocaine [Lidoderm 5% Patch] 1 patch TRANSDERM DAILY 03/06/22 [History] Sodium Chloride Tab 1 gm PO DAILY 03/06/22 [History] Aspirin 81 mg PO DAILY 30 Days tab 03/12/22 [Rx] QUEtiapine [SEROquel] 25 mg PO DAILY 30 Days tab 03/12/22 [Rx] QUEtiapine [SEROquel] 150 mg PO HS 30 Days #30 tab 03/12/22 [Rx] amLODIPine [Norvasc] 5 mg PO DAILY 30 Days #30 tab 03/12/22 [Rx] levETIRAcetam [Keppra] 250 mg PO Q12HR 30 Days #30 tab 03/12/22 [Rx] Follow up Appointment(s)/Referral(s): Naye Bryan DO [STAFF PHYSICIAN] - 1 Week (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
== END 2022-03-12 15:36 | disposition home or self-care (01) | DRG 71 ==
LOC: EC 10:04 → 3SCARD 12:17
PROVIDERS: ADMIT Internal Medicine; ATTEND Internal Medicine
PROC: 009U3ZX Drainage of Spinal Canal, Percutaneous Approach, Diagnostic (ICD-10-PCS; principal; 2022-03-08 11:45)
DX: G93.40 Encephalopathy, unspecified (principal); F23 Brief psychotic disorder; E87.1 Hypo-osmolality and hyponatremia; I42.9 Cardiomyopathy, unspecified; R47.01 Aphasia; F17.210 Nicotine dependence, cigarettes, uncomplicated; M54.9 Dorsalgia, unspecified; G89.29 Other chronic pain; E78.5 Hyperlipidemia, unspecified; I11.0 Hypertensive heart disease with heart failure; F10.10 Alcohol abuse, uncomplicated; I50.9 Heart failure, unspecified; I45.10 Unspecified right bundle-branch block; K59.00 Constipation, unspecified; R56.9 Unspecified convulsions; Z79.82 Long term (current) use of aspirin; Z79.899 Other long term (current) drug therapy; Z85.21 Personal history of malignant neoplasm of larynx; Z86.73 Personal history of transient ischemic attack (TIA), and cerebral infarction without residual deficits; Z92.3 Personal history of irradiation; Z80.42 Family history of malignant neoplasm of prostate
CPT/HCPCS: 36415; 62270; 70450; 70553; 74178; 80048; 80053; 80306; 80320; 81003; 82140; 82164; 82607; 82746; 82945; 83735; 83873; 84157; 84311; 84443; 84484; 85025; 85027; 85610; 85730; 86255; 86592; 86780; 86788; 86789; 87070; 87205; 87252; 87529; 88108; 89050; 93005; 95816; 96365; 96366; 99285

== ENCOUNTER 2022-05-25 15:36 | Emergency (ER) | payer MEDICARE, OTHER ==
[2022-05-25 16:10] LABS: Basophils % (A) 0 %; Eosinophils # (A) 0.1 k/uL (0-0.7); Eosinophils % (A) 1 %; HCT 43.3 % (39.0-53.0); HGB 14.4 gm/dL (13.0-17.5); Lymphocytes # (A) 0.8 k/uL (1.0-4.8); Lymphocytes % (A) 10 %; MCH 33.9 pg (25.0-35.0); MCHC 33.3 g/dL (31.0-37.0); MCV 101.8 fL (80.0-100.0); Macrocytosis Slight; Mean Platelet Volume 7.8; Monocytes # (A) 0.7 k/uL (0-1.0); Monocytes % (A) 8 %; Neutrophils # (A) 6.5 k/uL (1.3-7.7); Neutrophils % (A) 79 %; Platelet Count 184 k/uL (150-450); RBC 4.26 m/uL (4.30-5.90); RDW 13.3 % (11.5-15.5); WBC 8.2 k/uL (3.8-10.6)
[2022-05-25 16:18] LABS: ALT 27 U/L (4-49); AST 42 U/L (17-59); African American GFR (CKD) >90 (>60 ml/min/1.73 sqM); Albumin 5.1 g/dL (3.5-5.0); Alkaline Phosphatase 162 U/L (38-126); Anion Gap 16 mmol/L; Blood Urea Nitrogen 7 mg/dL (9-20); Calcium 9.8 mg/dL (8.4-10.2); Carbon Dioxide 23 mmol/L (22-30); Chloride 94 mmol/L (98-107); Glucose 73 mg/dL (74-99); Non-African American GFR(CKD) >90 (>60 ml/min/1.73 sqM); Potassium 4.1 mmol/L (3.5-5.1); Sodium 133 mmol/L (137-145); Total Bilirubin 1.1 mg/dL (0.2-1.3)
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
[2022-05-26 13:56] LABS: Appearance,Urine Clear (Clear); Bilirubin,Urine 1+ (Negative); Blood,Urine Trace (Negative); Color,Urine Yellow; Glucose,Urine (UA) Negative (Negative); Ketones,Urine 4+ (Negative); Leukocyte Esterase,Urine Negative (Negative); Mucus,Urine Many /hpf; Nitrite,Urine Negative (Negative); PH, Urine 5.5 (5.0-8.0); Protein,Urine Trace (Negative); RBC,Urine 1 /hpf (0-5); Specific Gravity,Urine 1.025 (1.001-1.035); Squamous Epithelial Cell,Urine <1 /hpf (0-4); WBC,Urine 1 /hpf (0-5)
[2022-05-26 13:59] LABS: Amphetamine Screen,Urine Not Detected (NotDetected); Barbiturate Screen,Urine Not Detected (NotDetected); Benzodiazepines Screen,Urine Not Detected (NotDetected); Cocaine Screen,Urine Not Detected (NotDetected); Methadone Screen, Urine Not Detected (NotDetected); Opiate Screen,Urine Not Detected (NotDetected); Oxycodone Screen, Urine Not Detected (NotDetected); Phencyclidine Screen,Urine Not Detected (NotDetected); Tricyclic Antidepressant,Urine Not Detected (NotDetected); Urn Cannabinoid Scrn Detected (NotDetected)
[2022-05-27] MEDS ORDERED: SODIUM CHLORIDE TAB 1 GM TAB PO SCH (11:00)
[2022-05-27] MEDS: lisinopriL 10 MG TAB PO SCH ×2 (11:50→20:45)
[2022-05-27] MEDS: GABAPENTIN 300 MG CAP PO SCH ×2 (15:43→20:44)
[2022-05-27 20:43] VITALS: TEMP 98.1
[2022-05-27] MEDS ORDERED: QUEtiapine 50 MG TAB PO SCH (21:00)
[2022-05-27] MEDS ORDERED: ATORVASTATIN 10 MG TAB PO SCH (21:00)
[2022-05-27] MEDS ORDERED: METOPROLOL TARTRATE 50 MG TAB PO SCH (21:00)
[2022-05-28] MEDS: MULTIVITAMINS, THERA 1 EACH TAB PO SCH (08:41)
[2022-05-28] MEDS: GABAPENTIN 300 MG CAP PO SCH ×3 (08:41→22:01)
[2022-05-28] MEDS: FOLIC ACID 1 MG TAB PO SCH (08:41)
[2022-05-28] MEDS: METOPROLOL TARTRATE 50 MG TAB PO SCH ×2 (08:41→22:03)
[2022-05-28] MEDS: lisinopriL 10 MG TAB PO SCH (08:43)
[2022-05-28] MEDS: SODIUM CHLORIDE TAB 1 GM TAB PO SCH (08:43)
[2022-05-28] MEDS ORDERED: MULTIVITAMINS, THERA 1 EACH TAB PO SCH (09:00)
[2022-05-28] MEDS ORDERED: FOLIC ACID 1 MG TAB PO SCH (09:00)
[2022-05-28] MEDS ORDERED: QUEtiapine 50 MG TAB PO SCH (21:00)
[2022-05-28] MEDS ORDERED: ATORVASTATIN 10 MG TAB PO SCH (21:00)
[2022-05-29] MEDS: lisinopriL 10 MG TAB PO SCH (08:45)
[2022-05-29] MEDS: METOPROLOL TARTRATE 50 MG TAB PO SCH (08:45)
[2022-05-29] MEDS: FOLIC ACID 1 MG TAB PO SCH (08:46)
[2022-05-29] MEDS: MULTIVITAMINS, THERA 1 EACH TAB PO SCH (08:46)
[2022-05-29] MEDS: SODIUM CHLORIDE TAB 1 GM TAB PO SCH (08:47)
[2022-05-29] MEDS: GABAPENTIN 300 MG CAP PO SCH ×2 (08:50→15:07)
--- NOTE | 2022-05-29 14:25 | P.CN ---
Psychiatric Consult - . Consult date: 05/29/22 Consult:: 05/29/22 14:16 IDENTIFYING DATA: This patient is a 66-year-old male, , currently lives with his in a house has 3 kids. REASON FOR REFERRAL: Psychiatry was consulted for psychiatric evaluation HISTORY OF PRESENT ILLNESS: The patient presented to the hospital initially on 05/25 and was petitioned by his spouse Mariama. She claimed in the position that patient has been confused, aggressive his behavior towards his family. She also stated that he has been hallucinating and not sleeping and eating and also drinking. Patient's UDS was positive for THC. Patient also has a history of hyponatremia. Patient apparently has been doing better and more cooperative and nurse did not report any complaints patient has been taking his medications since being in the hospital. Patient was initially attempted to be transferred to the [place] for [place] psych bed however this has not materialized. Patient was seen today laying in bed and woken by report writer. He was fairly cooperative and followed commands and answered questions as appropriately as he could. He knew he was in [facility] and knew his full name and age. He states that he believes it is May 2004. Very mild confusion however patient was fairly clear and focused during conversation. He expressed that his was concerned about his "memory loss" and states that he believes his thinks that there is a "problem". He knows that his petitioned him in the hospital however he states that he wants to go home. He was agreeable to go to the [place] for an appointment tomorrow. He states that he does not have any resentment towards h is and is denying any depression or anxiety at this time. At this time patient denies any suicidal or homical ideations, intent or plan. Patient denies any auditory, visual hallucinations and denies any paranoia or delusions. Patients admits to using cigarettes only. PAST PSYCHIATRIC HISTORY: Patient has a a history of cognitive impairment. Patient is currently on Seroquel 150 mg daily at bedtime. Patient denies any previous psychiatric hospitalizations. Patient denies any psychiatric outpatient follow-up. Patient denies any history of suicide attempts in the past. PAST MEDICAL HISTORY: As per ER note. ALLERGIES: as per EMR. CHEMICAL DEPENDENCY HISTORY: as per HPI. FAMILY PSYCHIATRIC/SUBSTANCE USE HISTORY: denies SOCIAL HISTORY: Patient was born and raised in [facility] and claimed that he completed high school. States that he went to the and join the [employer] and served from [id number]. He claims he has 3 kids, lives with his at home. MENTAL STATUS EXAM: General Appearance: Patient appears to be thin, stated age is alert, pleasant, and cooperative. Patient appears to have fair hygiene and grooming wearing hospital gown with fair eye contact. Behavior: Patient is calmly lying in bed without any agitated behavior. Cooperative. Appropriate. Speech: Patient's speech is fluent and nonpressured. [place] Mood/Affect: Patient reports their mood is "ok i guess", affect is congruent Suicidality/Homicidality: Patient denies having any suicidal or homicidal ideation intent or plan. Perceptions: Patient denies any visual hallucinations and denies any auditory hallucinations Though content/process: There is no evidence of any delusional thought content and thought process is linear and goal-directed. [place]. No delusions. Memory and concentration: AOX2, believes that it is May 2004. Can spell "WORLD" backwards. Fair attention span. Poor memory recall. Judgment and insight: Chronically limited IMPRESSIONS: Neurocognitive disorder, with likely underlying delirium that has resolved. Nicotine dependence PLAN: -At this time patient DOES NOT meet criteria for inpatient psychiatric admission as he has received treatment in the ER thus far and improved. He is set to go home with his and she will [facility]. I informed EPS nurse Kerry to contact patients and relay/confirm the plan and also to arrange for pickers material handlers and ensure that there is no guns or weapons in the house. -Delirium precautions recommended with patient including - avoiding use of narcotics and [employer] sedatives, limit anticholinergic medications when possible, frequent re-orientation, minimize use of restraints, open window shades during the day and close them at night -Would recommend the following medication changes/additions: continue with seroquel as prescribed -Communicated plan to patient's nurse -Psychiatry will sign off at this time -Please contact with any questions.
[2022-05-29 15:33] VITALS: BP 114/69; PULSE 73; RESP 18
== END 2022-05-29 15:37 | disposition home or self-care (01) ==
LOC: EC 15:36
DX: R45.6 Violent behavior (principal); F10.10 Alcohol abuse, uncomplicated; E78.5 Hyperlipidemia, unspecified; Z86.73 Personal history of transient ischemic attack (TIA), and cerebral infarction without residual deficits; F17.200 Nicotine dependence, unspecified, uncomplicated
CPT/HCPCS: 36415; 80053; 80306; 81001; 82075; 85025; 99284

== ENCOUNTER 2022-09-23 09:58 | Inpatient (IN) | payer OTHER, MEDICAID, MEDICARE ==
[2022-09-23 10:42] LABS: ALT 30 U/L (4-49); AST 39 U/L (17-59); African American GFR (CKD) >90 (>60 ml/min/1.73 sqM); Albumin 4.4 g/dL (3.5-5.0); Alcohol <10 mg/dL; Alkaline Phosphatase 119 U/L (38-126); Anion Gap 9 mmol/L; Basophils % (A) 0 %; Blood Urea Nitrogen 2 mg/dL (9-20); Calcium 8.8 mg/dL (8.4-10.2); Carbon Dioxide 23 mmol/L (22-30); Chloride 96 mmol/L (98-107); Eosinophils # (A) 0.1 k/uL (0-0.7); Eosinophils % (A) 1 %; Glucose 173 mg/dL (74-99); HCT 47.9 % (39.0-53.0); HGB 16.7 gm/dL (13.0-17.5); Lymphocytes # (A) 0.4 k/uL (1.0-4.8); Lymphocytes % (A) 5 %; MCH 34.1 pg (25.0-35.0); MCHC 34.9 g/dL (31.0-37.0); MCV 97.6 fL (80.0-100.0); Magnesium 2.2 mg/dL (1.6-2.3); Mean Platelet Volume 9.2; Monocytes # (A) 0.4 k/uL (0-1.0); Monocytes % (A) 5 %; Neutrophils # (A) 7.4 k/uL (1.3-7.7); Neutrophils % (A) 89 %; Non-African American GFR(CKD) >90 (>60 ml/min/1.73 sqM); Platelet Count 190 k/uL (150-450); Potassium 4.3 mmol/L (3.5-5.1); RDW 12.8 % (11.5-15.5); Sodium 128 mmol/L (137-145); Total Protein 7.1 g/dL (6.3-8.2); WBC 8.3 k/uL (3.8-10.6)
--- NOTE | 2022-09-23 11:22 | ED ---
General Adult HPI - General Chief complaint: Seizure Stated complaint: seizure Time Seen by Provider: 09/23/22 10:21 Source: patient, EMS, RN notes reviewed Mode of arrival: EMS Limitations: no limitations - History of Present Illness Initial comments: Patient is a 67-year-old male presenting to the emergency room via EMS after he was found wandering in his front yard by his after a witnessed seizure by her. She reports that he had seizure activity with a fall hitting his head that lasted approximately 1-2 minutes. He has a past medical history of previous seizures and was prescribed Keppra however is unclear if he is taking the medication as he reports he does not recognize the medication and is not currently on his active medication list however he is only alert and orientated 2 which according to old records of psychiatric and neurological consult appears to be his baseline. He does have an abrasion to the left side of his head without any laceration or obvious skull deformity. He has no other extremity pain. He does not recall the seizure events or events leading up to his arrival to the emergency room. He is currently resting comfortably and denies any complaints or concerns. He denies any chest pain, shortness of b reath, abdominal pain, nausea, vomiting, fevers or chills. In addition to his seizure history he has a past medical history significant for esophageal cancer, CVA with cognitive impairment, hyponatremia, hyperlipidemia, hypertension, arthritis, and cardiomyopathy with heart failure. - Related Data Home Medications Medication Instructions Recorded Confirmed Gabapentin [Neurontin] 600 mg PO TID 02/18/20 05/25/22 Multivitamins, Thera [Multivitamin 1 tab PO DAILY 08/22/21 05/25/22 (formulary)] Folic Acid 1 mg PO DAILY 01/02/22 05/25/22 Atorvastatin [Lipitor] 10 mg PO HS 03/06/22 05/25/22 Lidocaine [Lidoderm 5% Patch] 1 patch TRANSDERM DAILY 03/06/22 05/25/22 Sodium Chloride Tab 1 gm PO DAILY 03/06/22 05/25/22 Metoprolol Tartrate [Lopressor] 100 mg PO BID 05/25/22 05/25/22 QUEtiapine [SEROquel] 150 mg PO HS 05/25/22 05/25/22 lisinopriL [Prinivil] 10 mg PO DAILY 05/25/22 05/25/22 Allergies Allergy/AdvReac Type Severity Reaction Status Date / Time No Known Allergies Allergy Verified 09/23/22 10:10 Review of Systems ROS Statement: Those systems with pertinent positive or pertinent negative responses have been documented in the HPI. ROS Other: All systems not noted in ROS Statement are negative. 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 CARDIOMYOPATHY, VARICOSE VEINS, CHRONIC BACK PAIN, DIFFICULTY WALKING DISTANCE OR SITTING, DRY MOUTH. Hx broken ribs from fall. Hx Metabolic Encephalopathy 2020. has a soft swelling noted hanging off rt elbow, hyponatremia w hospitalizations- last one 2020, MRI IN 2021 SHOWED SMALL STROKEBUT NOT SURE WHEN HE HAD IRT History of Any Multi-Drug Resistant Organisms: None Reported Past Surgical History: Back Surgery, Heart Catheterization Additional Past Surgical History / Comment(s): COLONOSCOPY, PAIN CLINIC PROCEDURES, BACK SURGERY AT [facility] IN [place]. All teeth extracted. Past Anesthesia/Blood Transfusion Reactions: Previous Problems w/ Anesthesia Additional Past Anesthesia/Blood Transfusion Reaction / Comment(s): WITH 2 PAIN PROC WAS AWAKE, PROCEDURE VERY PAINFUL. Past Psychological History: No Psychological Hx Reported Smoking Status: Current every day smoker Past Alcohol Use History: Abuse, Daily, Heavy Past Drug Use History: Marijuana - Past Family History Father Family Medical History: Cancer Additional Family Medical History / Comment(s): Prostate cancer. Mother History Unknown: Yes Family Medical History: No Reported History Additional Family Medical History / Comment(s): Mother , not sure of cause. General Exam Limitations: altered mental status General appearance: alert, in no apparent distress Head exam: Present: normocephalic Expanded Head exam: Present: abrasion (left ) Eye exam: Present: normal appearance, PERRL. Absent: scleral icterus, conjunctival injection, periorbital swelling, periorbital tenderness ENT exam: Present: normal exam, mucous membranes moist Neck exam: Present: normal inspection, full ROM. Absent: tenderness Respiratory exam: Present: normal lung sounds bilaterally. Absent: respiratory distress, wheezes, rales, rhonchi, stridor Cardiovascular Exam: Present: regular rate, normal rhythm, normal heart sounds. Absent: systolic murmur, diastolic murmur, rubs, gallop, clicks GI/Abdominal exam: Present: soft, normal bowel sounds. Absent: distended, tenderness, guarding, rebound, rigid Extremities exam: Present: normal inspection. Absent: pedal edema, joint swelling Back exam: Present: normal inspection Neurological exam: Present: alert Expanded Patient oriented to: Present: person, place. Absent: time Speech: Present: fluid speech (Garbled at times due to excessive secretion secondary to esophageal cancer, no aphasia) Eye Response: (4) open spontaneously Motor Response: (6) obeys commands Verbal Response: (5) oriented (not to time) Psychiatric exam: Present: flat affect Skin exam: Present: abrasion (left scalp) Course Vital Signs 09/23/22 10:07 Pulse Rate 103 H Respiratory 18 Rate Blood Pressure 132/93 O2 Sat by Pulse 97 Oximetry Medical Decision Making - Medical Decision Making Patient is a 59-year-old male brought to the emergency room via EMS from home after a witnessed seizure by his and was found to be wandering in the yard with altered mental status. He has a past medical history significant for seizure activity. He is alert and oriented 2 on exam without any focal neurological deficits however secondary to an abrasion on his head and hitting his head with the fall he will need a CT of the head as part of his workup along with EKG, CBC, CMP, Keppra level, magnesium, alcohol level, and urine drug screen. EKG interpreted by me demonstrates sinus rhythm with left atrial enlargement, incomplete right bundle, right ventricular hypertrophy and anterior lateral myocardial infarct both present on previous EKG. CT of the brain without contrast imaging turbid by me demonstrates atrophy, no intracranial hemorrhage or mass noted. Radiologist report reviewed incidental 6 mm aneurysm noted with recommended follow-up in 6 months with MRI or computed to mography scan. CBC unremarkable, CMP demonstrates mild hyponatremia with a sodium of 128 low BUN at 2 and slightly elevated glucose at 173. Potassium, magnesium and liver function normal. Low probability for currently taking Keppra, Keppra level pending will give IV Keppra bolus and plan for admission for further monitoring regarding hyponatremia, seizure activity and altered mental status. Spoke with Dr. Martinez was sound physician regarding recommendation for admission for hyponatremia, seizure activity and altered mental status. He is accepting of admission. We will give bolus of Keppra along with placed in neurology consult with admission orders. No other orders received at this time. Case discussed with Dr. Armenta. - Lab Data Result diagrams: 09/23/22 10:18 09/23/22 10:18 Lab Results 09/23/22 09/23/22 Range/Units 10:18 10:18 WBC 8.3 (3.8-10.6) k/uL RBC 4.90 (4.30-5.90) m/uL Hgb 16.7 (13.0-17.5) gm/dL Hct 47.9 (39.0-53.0) % MCV 97.6 (80.0-100.0) fL MCH 34.1 (25.0-35.0) pg MCHC 34.9 (31.0-37.0) g/dL RDW 12.8 (11.5-15.5) % Plt Count 190 (150-450) k/uL MPV 9.2 Neutrophils % 89 % Lymphocytes % 5 % Monocytes % 5 % Eosinophils % 1 % Basophils % 0 % Neutrophils # 7.4 (1.3-7.7) k/uL Lymphocytes # 0.4 L (1.0-4.8) k/uL Monocytes # 0.4 (0-1.0) k/uL Eosinophils # 0.1 (0-0.7) k/uL Basophils # 0.0 (0-0.2) k/uL Sodium 128 L (137-145) mmol/L Potassium 4.3 (3.5-5.1) mmol/L Chloride 96 L (98-107) mmol/L Carbon Dioxide 23 (22-30) mmol/L Anion Gap 9 mmol/L BUN 2 L (9-20) mg/dL Creatinine 0.56 L (0.66-1.25) mg/dL Est GFR (CKD-EPI)AfAm >90 (>60 ml/min/1.73 sqM) Est GFR (CKD-EPI)NonAf >90 (>60 ml/min/1.73 sqM) Glucose 173 H (74-99) mg/dL Calcium 8.8 (8.4-10.2) mg/dL Magnesium 2.2 (1.6-2.3) mg/dL Total Bilirubin 1.0 (0.2-1.3) mg/dL AST 39 (17-59) U/L ALT 30 (4-49) U/L Alkaline Phosphatase 119 (38-126) U/L Total Protein 7.1 (6.3-8.2) g/dL Albumin 4.4 (3.5-5.0) g/dL Serum Alcohol <10 mg/dL - EKG Data EKG Comments: EKG completed at 106 interpreted by me demonstrates sinus rhythm, possible left atrial enlargement, incomplete right bundle branch block, right ventricular hypertrophy, anterolateral myocardial infarct old present on previous EKG completed 03/19/2022. Ventricular rate 96 bpm, KY interval 144 ms, QRS duration 104 ms, QT/QTC 375/429 ms, KY T axes 75, 235, 56 When compared to previous EKG there are: no significant change - Radiology Data Radiology results: report reviewed, image reviewed Disposition Clinical Impression: Hyponatremia, Generalized seizure Disposition: ADMITTED IP TO THIS [facility] Condition: Stable Instructions (If sedation given, give patient instructions): Seizure/Epilepsy Discharge Instructions & Follow-Up Is patient prescribed a controlled substance at d/c from ED?: No Referrals: [facility],Clinic [Primary Care Provider] - 1-2 days Time of Disposition: 12:30
--- NOTE | 2022-09-23 11:39 | CT ---
EXAMINATION TYPE: CT brain wo con DATE OF EXAM: 09/23/2022 COMPARISON: 03/06/2022 HISTORY: 67-year-old male Seizure activity/ head trauma on aspirin TECHNIQUE: Examination was done in axial plane without intravenous contrast. Coronal and sagittal r econstructions performed. CT DLP: 1158.4 mGycm Automated exposure control for dose reduction was used. FINDINGS: There is no evidence of acute intracranial hemorrhage, acute ischemic changes, mass, mass-effect, or extra-axial fluid collection. There is no effacement of cerebral sulci or basal subarachnoid cister ns. There is no hydrocephalus. There is no midline shift. Britt-white matter distinction is preserv ed. Atherosclerotic calcifications throughout the bilateral carotid siphons. There is some 6 mm nodular fullness in the region of the anterior communicating artery, axial image 1 9. Mild patchy white matter hypodensities in the periventricular regions of both cerebral hemispheres . Paranasal sinuses and mastoid air cells well pneumatized. Orbits and globes are intact. IMPRESSION: 1. 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 [facility] neurosurgery referral recommended. Six-month follow-up [facility] [place] [facility] [place]. 2. Otherwise, no acute intracranial abnormality seen.
[2022-09-23] MEDS ORDERED: NALOXONE 0.4 MG/ML 1 ML VIAL IV PRN (12:17)
[2022-09-23] MEDS ORDERED: levETIRAcetam IV 1,000 MG in SALINE 1 100ML.BAG IVPB STA (12:17)
[2022-09-23] MEDS: SODIUM CHLORIDE TAB 1 GM TAB PO SCH (14:21)
[2022-09-23 14:31] LABS: Amphetamine Screen,Urine Not Detected (NotDetected); Barbiturate Screen,Urine Not Detected (NotDetected); Benzodiazepines Screen,Urine Not Detected (NotDetected); Cocaine Screen,Urine Not Detected (NotDetected); Methadone Screen, Urine Not Detected (NotDetected); Opiate Screen,Urine Not Detected (NotDetected); Oxycodone Screen, Urine Not Detected (NotDetected); Phencyclidine Screen,Urine Not Detected (NotDetected); Tricyclic Antidepressant,Urine Not Detected (NotDetected); Urn Cannabinoid Scrn Detected (NotDetected)
[2022-09-23] MEDS ORDERED: LORazepam 2 MG/ML INJ IV PRN ×3 (14:42)
--- NOTE | 2022-09-23 14:43 | P.HPIM ---
History of Present Illness H&P Date: 09/23/22 Chief Complaint: seizure 67-year-old man with a medical history of alcohol abuse disorder, Corie myopathy with reduced ejection fraction, seizure disorder, hypertension, hyperlipidemia, hyponatremia from beer potomania presented for evaluation after seizure. Patient is a relatively poor historian, history is gathered from ER chart review, provider signout, patient's was at bedside. Apparently, patient was sitting in his chair, when his heard a thud on the floor, came upstairs and noted the patient was having a prolonged seizure with postictal confusion. According to the patient's , patient has been refusing take his medications for seizures, hyponatremia, cardiomyopathy with reduced ejection fraction. Patient continues to drink 12+ drinks daily as he has for many years. He is not interested in quitting at this time. His last drink was yesterday night. Patient denies fevers, chills, nausea, vomiting, chest pain, palpitations, syncope, cough, dyspnea, abdominal pain, constipation, diarrhea, dysuria, dyschezia, numbness/weakness of extremities. In the emergency room, patient was afebrile, 131/78, heart rate 80, 98% on room air. CBC is unremarkable. Chemistries are remarkable for hyponatremia to 128, otherwise unremarkable. Liver function tests are unremarkable. Alcohol level was less than 10. Urine tox screen is positive for marijuana. Brain CT shows findings of an incidental 6 mm saccular aneurysm in the intercommunicating art carmen which can be followed up at 6 months. All Systems reviewed and pertinent positives and negatives noted in HPI, all other symptoms are negative Gen: in no apparent distress, resting comfortably in bed Eyes: PERRL, no scleral injection or icterus HENT: normocephalic, atraumatic, good hearing acuity, moist mucous membranes Neck: no tracheal deviation, full range of motion Resp: good air exchange, breathing comfortably with no accessory muscle use, no tactile fremitus CVS: good distal perfusion x 4, no pitting edema GI: soft, NTTP, ND, no hepatosplenomegaly : no suprapubic tenderness, no CVAT, mckenna catheter not present MSK: no clubbing, no cyanosis, no noted contractures of extremities Skin: no noted rashes, petechiae; temperature of skin is appropriate Neuro: moving all extremities without signs of weakness, CN II-XII intact Psych: cooperative, euthymic mood, insight and judgment impaired Labs and imaging as above Assessment/plan: Seizure disorder -Admit to observation -Neurology consult -EEG -Seizure precautions -Keppra Hyponatremia secondary to beer potomania -Resume home salt tabs -Repeat in the morning Alcohol abuse disorder Alcohol withdrawal syndrome -Cessation counseling -[facility] protocol -Ativan when necessary -Thiamine, folate, multivitamin Cardiomyopathy with history of reduced ejection fraction, now recovered ejection fraction of 50-55% Hypertension Hyperlipidemia -Home medications reviewed and reconciled Past Medical History Past Medical History: Cancer, Heart Failure, CVA/TIA, Hyperlipidemia, Hypertension, Memory Impairment, Osteoarthritis (OA) Additional Past Medical History / Comment(s): HX CANCER OF EPIGLOTTIS-02/25/19-tx with radiation(finished 04/2019). CARDIOMYOPATHY, VARICOSE VEINS, CHRONIC BACK PAIN, DIFFICULTY WALKING DISTANCE OR SITTING, DRY MOUTH. Hx broken ribs from fall. Hx Metabolic Encephalopathy 2020. has a soft swelling noted hanging off rt elbow, hyponatremia w hospitalizations- last one 2020, MRI IN 2021 SHOWED SMALL STROKEBUT NOT SURE WHEN HE HAD IRT History of Any Multi-Drug Resistant Organisms: None Reported Past Surgical History: Back Surgery, Heart Catheterization Additional Past Surgical History / Comment(s): COLONOSCOPY, PAIN CLINIC PROCEDURES, BACK SURGERY AT [facility] IN [place]. All teeth extracted. Past Anesthesia/Blood Transfusion Reactions: Previous Problems w/ Anesthesia Additional Past Anesthesia/Blood Transfusion Reaction / Comment(s): WITH 2 PAIN PROC WAS AWAKE, PROCEDURE VERY PAINFUL. Past Psychological History: No Psychological Hx Reported Smoking Status: Current every day smoker Past Alcohol Use History: Abuse, Daily, Heavy Additional Past Alcohol Use History / Comment(s): Admits to smoking 1 pack per day since age 14. 3-4 beers daily. Past Drug Use History: Marijuana Additional Drug Use History / Comment(s): Daily marijuana use. - Past Family History Father Family Medical History: Cancer Additional Family Medical History / Comment(s): Prostate cancer. Mother History Unknown: Yes Family Medical History: No Reported History Additional Family Medical History / Comment(s): Mother , not sure of cause. Medications and Allergies Home Medications Medication Instructions Recorded Confirmed Type Gabapentin [Neurontin] 600 mg PO TID 02/18/20 09/23/22 History Multivitamins, Thera [Multivitamin 1 tab PO DAILY 08/22/21 09/23/22 History (formulary)] Folic Acid 1 mg PO DAILY 01/02/22 09/23/22 History Atorvastatin [Lipitor] 10 mg PO HS 03/06/22 09/23/22 History Lidocaine [Lidoderm 5% Patch] 1 patch TRANSDERM DAILY 03/06/22 09/23/22 History Sodium Chloride Tab 1 gm PO DAILY 03/06/22 09/23/22 History Metoprolol Tartrate [Lopressor] 100 mg PO BID 05/25/22 09/23/22 History QUEtiapine [SEROquel] 150 mg PO HS 05/25/22 09/23/22 History lisinopriL [Prinivil] 10 mg PO DAILY 05/25/22 09/23/22 History Allergies Allergy/AdvReac Type Severity Reaction Status Date / Time No Known Allergies Allergy Verified 09/23/22 13:12 Physical Exam Osteopathic Statement: *. No significant issues noted on an osteopathic structural exam other than those noted in the History and Physical/Consult. Vitals: Vital Signs Temp Pulse Pulse Resp BP BP Pulse Ox 09/23/22 13:32 99 F 97 18 138/89 98 09/23/22 13:10 98.2 F 80 18 131/78 98 09/23/22 12:00 98 18 122/71 98 09/23/22 10:07 103 H 18 132/93 97 Intake and Output 09/22/22 09/23/22 09/23/22 22:59 06:59 14:59 Other: Weight 68.039 kg Results CBC & Chem 7: 09/23/22 10:18 09/23/22 10:18 Labs: Abnormal Lab Results - Last 24 Hours (Table) 09/23/22 09/23/22 09/23/22 Range/Units 10:18 10:18 14:15 Lymphocytes # 0.4 L (1.0-4.8) k/uL Sodium 128 L (137-145) mmol/L Chloride 96 L (98-107) mmol/L BUN 2 L (9-20) mg/dL Creatinine 0.56 L (0.66-1.25) mg/dL Glucose 173 H (74-99) mg/dL U Marijuana (THC) Screen Detected H (NotDetected) Thrombosis Risk Factor Assmnt - Choose All That Apply Other Risk Factors: Yes Each Risk Factor Represents 2 Points: Age 61-74 years Thrombosis Risk Factor Assessment Total Risk Factor Score: 2 Thrombosis Risk Factor Assessment Level: Low Risk
[2022-09-23] MEDS ORDERED: THIAMINE 100 MG/ML 2 ML VIAL IM STA (14:50)
[2022-09-23] MEDS: GABAPENTIN 300 MG CAP PO SCH ×2 (15:52→21:02)
[2022-09-23] MEDS ORDERED: ATORVASTATIN 10 MG TAB PO SCH (21:00)
[2022-09-23] MEDS ORDERED: QUEtiapine 50 MG TAB PO SCH (21:00)
[2022-09-23] MEDS: METOPROLOL TARTRATE 50 MG TAB PO SCH (21:02)
[2022-09-24] MEDS: METOPROLOL TARTRATE 50 MG TAB PO SCH (07:44)
[2022-09-24] MEDS: GABAPENTIN 300 MG CAP PO SCH (07:44)
[2022-09-24] MEDS: SODIUM CHLORIDE TAB 1 GM TAB PO SCH (07:45)
[2022-09-24] MEDS ORDERED: MULTIVITAMINS, THERA 1 EACH TAB PO SCH (09:00)
[2022-09-24] MEDS ORDERED: FOLIC ACID 1 MG TAB PO SCH (09:00)
[2022-09-24] MEDS ORDERED: THIAMINE 100 MG TAB PO SCH (09:00)
[2022-09-24] MEDS ORDERED: lisinopriL 10 MG TAB PO SCH (09:00)
[2022-09-24 09:26] LABS: African American GFR (CKD) 106.4 (60.0-200.0); Anion Gap 9.4 mmol/L (10.00-18.00); BUN/Creat Ratio 5.13 Ratio (12.00-20.00); Basophils # (A) 0.05 X 10*3/uL (0.00-0.10); Basophils % (A) 0.7 %; Blood Urea Nitrogen 4.1 mg/dL (9.0-27.0); Calcium 9.6 mg/dL (8.7-10.3); Carbon Dioxide 27.6 mmol/L (20.0-27.5); Eosinophils # (A) 0.15 X 10*3/uL (0.04-0.35); HCT 42.2 % (39.6-50.0); HGB 14.9 g/dL (13.0-17.0); Immature Grans, Automated 0.3 %; Lymphocytes # (A) 1.03 X 10*3/uL (0.90-5.00); Lymphocytes % (A) 13.5 %; MCH 34.4 pg (27.0-32.0); MCHC 35.3 g/dL (32.0-37.0); MCV 97.5 fL (80.0-97.0); Magnesium 2.7 mg/dL (1.5-2.4); Mean Platelet Volume 10.5 fL (9.5-12.2); Monocytes # (A) 0.79 X 10*3/uL (0.20-1.00); Monocytes % (A) 10.4 %; NRBC Per 100 WBC 0 /100 WBCS (0.0-0.0); Neutrophils # (A) 5.59 X 10*3/uL (1.80-7.70); Neutrophils % (A) 73.1 %; Non-African American GFR(CKD) 91.8 (60.0-200.0); Platelet Count 188 X 10*3/uL (140-440); RBC 4.33 X 10*6/uL (4.40-5.60); RDW 13.2 % (11.5-14.5); WBC 7.63 X 10*3/uL (4.50-10.00)
--- NOTE | 2022-09-24 13:10 | P.CNNES ---
History of Present Illness Consult date: 09/24/22 Requesting physician: Paula Thomas Reason for Consult: Seizure/ AMS History of Present Illness: Patient is a 67-year-old male with history of seizure disorder, currently not on any seizure medication, came to the hospital by ambulance yesterday at 9:58 AM after a witnessed seizure. Patient states that he came to the hospital because he "had an episode, not sure, feels he passed out". He states that his calls it "an episode". He says he has it twice in the past as well. His called the ambulance. I spoke to patient's , who states that since June 2021, he had this fourth witnessed seizure. He was downstairs, and she heard a thud. When she came down, he was laying on the floor seizing. She rolled him over as he was about to vomit. He was unresponsive. When EMS arrived, he was still unresponsive. However when he was being loaded into the ambulance, he started waking up, which was about 10-15 minutes after the onset of seizure. He was dry heaving, but did not vomit. EMS flow sheet not available in the chart. Vital signs arrival blood pressure 132/93 pulse rate 103, temperature 98.2. Blood test shows normal CBC, sodium 128 potassium 4.3, normal renal and hepatic panel. Urine drug screen positive for marijuana and blood alcohol level was less than 10. Patient had negative CSF on 03/08/2022 with glucose 53, protein was elevated 90/60, but WBCs 10, RBC 0 and angiotensin-converting enzyme negative, CSF VDRL negative. HSV PCR, viral cultures were negative. West Nile virus negative. 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 Appropriate neurosurgery referral recommended. Six-month follow-up [facility] [place]. Otherwise no acute intracranial abnormality seen. I personally reviewed CT head, agree with the findings. EKG shows sinus rhythm. Possible left atrial enlargement. Incomplete right bundle- branch block. Patient has been seen by neurology service on 03/10/2022 and was felt to be e ncephalopathy of unknown etiology as patient was found confused, psychotic/manic symptoms, talking tangential, had not slept for 4 days prior to presentation at that time. Encephalitis was ruled out. MRI of the brain was negative for metastasis in routine EEG was normal. Patient was placed on Keppra 250 mg twice a day. Patient has history of seizure on 02/15/2022. 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 Patient also has hypertension chronic hyponatremia (lowest sodium 120 on 03/20/2021), chronic low back pain, cardiomyopathy, chronic alcohol use and tobacco use. Patient's home medications include metoprolol, lisinopril, Seroquel 150 mm gram at bedtime, Lipitor 10 mg, sodium chloride 1 g by mouth daily, folic acid 1 mg, multivitamins and gabapentin 600 mg 3 times a day. Patient states that he drinks between 3-6 beers, around 3 out of 5 days of the weekdays. He drinks about 8 per day on the weekends. When I spoke to his , she states that he drinks 12 beers per day 7 days a week. He did drink on , and he had a seizure on . He states that he started smoking between a quarter to half pack per day from age 14 until 44. From age 44, he started smoking up to 1 pack per day, still smokes. He was diagnosed with epiglottic cancer in 2019 for which he underwent radiation therapy. The cancer is in remission. Review of Systems Constitutional: Denies chills, Denies fever Eyes: denies blurred vision, denies pain Ears: deny: earache, tinnitus Ears, nose, mouth and throat: Denies headache, Denies sore throat Cardiovascular: Denies chest pain, Denies shortness of breath Respiratory: Denies cough Gastrointestinal: Denies abdominal pain, Denies diarrhea, Denies nausea, Denies vomiting Musculoskeletal: Denies myalgias Integumentary: Denies pruritus, Denies rash Neurological: Reports as per HPI Psychiatric: Denies anxiety, Denies depression Endocrine: Denies fatigue, Denies weight change Hematologic/Lymphatic: Denies easy bruising Past Medical History Past Medical History: Cancer, Heart Failure, CVA/TIA, Hyperlipidemia, Hy pertension, Memory Impairment, Osteoarthritis (OA) Additional Past Medical History / Comment(s): HX CANCER OF EPIGLOTTIS-02/25/19-tx with radiation(finished 04/2019). CARDIOMYOPATHY, VARICOSE VEINS, CHRONIC BACK PAIN, DIFFICULTY WALKING DISTANCE OR SITTING, DRY MOUTH. Hx broken ribs from fall. Hx Metabolic Encephalopathy 2020. has a soft swelling noted hanging off rt elbow, hyponatremia w hospitalizations- last one 2020, MRI IN 2021 SHOWED SMALL STROKEBUT NOT SURE WHEN HE HAD IRT History of Any Multi-Drug Resistant Organisms: None Reported Past Surgical History: Back Surgery, Heart Catheterization Additional Past Surgical History / Comment(s): COLONOSCOPY, PAIN CLINIC PROCEDURES, BACK SURGERY AT [facility] IN [place]. All teeth extracted. Past Anesthesia/Blood Transfusion Reactions: Previous Problems w/ Anesthesia Additional Past Anesthesia/Blood Transfusion Reaction / Comment(s): WITH 2 PAIN PROC WAS AWAKE, PROCEDURE VERY PAINFUL. Past Psychological History: No Psychological Hx Reported Smoking Status: Current every day smoker Past Alcohol Use History: Abuse, Daily, Heavy Additional Past Alcohol Use History / Comment(s): Admits to smoking 1 pack per day since age 14. 3-4 beers daily. Past Drug Use History: Marijuana Additional Drug Use History / Comment(s): Daily marijuana use. - Past Family History Father Family Medical History: Cancer Additional Family Medical History / Comment(s): Prostate cancer. Mother History Unknown: Yes Family Medical History: No Reported History Additional Family Medical History / Comment(s): Mother , not sure of cause. Medications and Allergies Home Medications Medication Instructions Recorded Confirmed Type Gabapentin [Neurontin] 600 mg PO TID 02/18/20 09/23/22 History Multivitamins, Thera [Multivitamin 1 tab PO DAILY 08/22/21 09/23/22 History (formulary)] Folic Acid 1 mg PO DAILY 01/02/22 09/23/22 History Atorvastatin [Lipitor] 10 mg PO HS 03/06/22 09/23/22 History Lidocaine [Lidoderm 5% Patch] 1 patch TRANSDERM DAILY 03/06/22 09/23/22 History Sodium Chloride Tab 1 gm PO DAILY 03/06/22 09/23/22 History Metoprolol Tartrate [Lopressor] 100 mg PO BID 05/25/22 09/23/22 History QUEtiapine [SEROquel] 150 mg PO HS 05/25/22 09/23/22 History lisinopriL [Prinivil] 10 mg PO DAILY 05/25/22 09/23/22 History Allergies Allergy/AdvReac Type Severity Reaction Status Date / Time No Known Allergies Allergy Verified 09/23/22 13:12 Physical Examination - Vital Signs Vital Signs: Vital Signs Temp Pulse Pulse Resp BP BP Pulse Ox 09/24/22 02:00 97.5 F L 61 16 103/68 91 L 09/23/22 20:00 97.8 F 91 16 93/66 97 09/23/22 13:32 99 F 97 18 138/89 98 09/23/22 13:10 98.2 F 80 18 131/78 98 09/23/22 12:00 98 18 122/71 98 09/23/22 10:07 103 H 18 132/93 97 Intake and Output 09/23/22 09/24/22 09/24/22 22:59 06:59 14:59 Intake Total 590 Balance 590 Intake: Oral 590 Other: Voiding Method Toilet Urinal # Voids 1 Patient is an elderly male, in no acute distress. Patient is alert awake oriented to time place and person. He knows it is August and thinks is a and the year is 2021. He knows he is in [facility] and name of the current president. Speech and language functions are normal. Patient can name and repeat very well. No aphasia or dysarthria. Attention, concentration and fund of knowledge is adequate. On cranial nerve examination, pupils are equal, round and reacting to light, visual price are full on confrontation, with no neglect on double simultaneous stimulation. Extraocular muscles are intact with no nystagmus. Face is symmetric, tongue protrudes to the midline. Palatal elevation and sensation normal, hearing and shoulder shrug normal, facial sensation normal. On muscle strength testing, there is no pronator drift and the strength is normal in arms and legs distally and proximally. Deep tendon reflexes are symmetric in biceps 1, brachioradialis 0, knee 1 and ankles absent plantars are downgoing bilaterally. Sensory to touch is equal with no neglect on double simultaneous stimulation. Cerebellar function showed no ataxia for [id number] testing. No dysdiadochokinesia. No ataxia for [id number] testing on either side. Tone and bulk of muscles normal. Gait deferred.. On general examination, there is no carotid bruit or murmur, S1-S2 audible. Chest is clear on consultation. Abdomen is soft nontender. No organomegaly, bowel sounds present. Peripheral pulses are present. No edema. Results - Laboratory Findings CBC and BMP: 09/24/22 04:37 09/24/22 04:37 Abnormal Lab Findings: Abnormal Labs 09/23/22 09/23/22 09/23/22 10:18 10:18 14:15 Lymphocytes # 0.4 L Sodium 128 L Chloride 96 L BUN 2 L Creatinine 0.56 L Glucose 173 H U Marijuana (THC) Screen Detected H Assessment and Plan Assessment: * Breakthrough seizure. This is the fourth seizure patient has had since the n ew onset seizure in June 2021. Seizure could be related to alcohol withdrawal +/- related to hyponatremia. Patient's sodium was not too low, only 128 this time whereas the lowest he ever had was 120. Alcohol withdrawal could definitely be contributing. * Alcoholism * Tobacco use * History of epiglottic cancer, status post radiation in 2018. 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 Plan: * Patient has history of recurrent seizures. Although there may be some provoking factors, but because of having 4 seizures in last 14 months, he will be maintained on antiepileptic medication to prevent seizure recurrence. He will be discharged on Keppra 750 mg twice a day. * EEG was performed today, which was mildly abnormal because of mild background slowing. No epileptiform activity was seen. * Patient was strongly recommended, for no driving unless seizure free for 6 months, as per [place] state law. He should also not climb ladders, operate dangerous machinery or unsupervised swimming. This information was also relayed to patient's . * Recommend abstinence from alcohol, and tobacco use. * Regarding cerebral aneurysm, this has been present as far as MRI from 10/14/2021. There is no urgency to address in this hospitalization. Patient needs to follow-up with neuro-intervention as an outpatient within 1-2 weeks. Will defer to further testing as indicated by neuro-intervention. * Patient recommended tobacco cessation, as it can make aneurysms worse. Patient's blood pressure is well controlled 103/68. * Neurologically clear for discharge. Recommend follow-up with neurologist for management of seizure disorder and neuro-intervention for cerebral aneurysm. Discussed with patient's in detail. * Thank you for the consult.
[2022-09-24 13:35] VITALS: BP 110/71; PULSE 60; RESP 18; TEMP 97.9
--- NOTE | 2022-09-24 14:00 | P.DS ---
Providers Date of admission: 09/23/22 12:43 Expected date of discharge: 09/24/22 Attending physician: Deandra Snyder MD Consults: 09/23/22 12:17 Consult Physician Routine Consulting Provider: Jayden Cunningham Consult Reason/Comments: Seizure/ AMS Do you want consulting provider notified?: Yes Primary care physician: [facility] Course: Seizure disorder Hyponatremia secondary to beer potomania Alcohol abuse disorder Alcohol withdrawal syndrome Cardiomyopathy with history of reduced ejection fraction, now recovered ejection fraction of 50-55% Hypertension Hyperlipidemia 67-year-old man with a medical history of alcohol abuse disorder, Corie myopathy with reduced ejection fraction, seizure disorder, hypertension, hyperlipidemia, hyponatremia from beer potomania presented for evaluation after seizure. In the emergency room, patient was afebrile, 131/78, heart rate 80, 98% on room air. CBC is unremarkable. Chemistries are remarkable for hyponatremia to 128, otherwise unremarkable. Liver function tests are unremarkable. Alcohol level was less than 10. Urine tox screen is positive for marijuana. Brain CT shows findings of an incidental 6 mm saccular aneurysm in the intercommunicating artery which can be followed up at 6 months. Patient seen by neurology and cleared for discharge with neurology follow up and neurosurgery follow up. Na did improve to 132 with resumption of salt tabs. Pt counseled on medication compliance, smoking cessation, ETOH cessation. Gen: in no apparent distress, resting comfortably in bed Eyes: PERRL, no scleral injection or icterus HENT: normocephalic, atraumatic, good hearing acuity, moist mucous membranes Neck: no tracheal deviation, full range of motion Resp: good air exchange, breathing comfortably with no accessory muscle use, no tactile fremitus CVS: good distal perfusion x 4, no pitting edema GI: soft, NTTP, ND, no hepatosplenomegaly : no suprapubic tenderness, no CVAT, mckenna catheter not present MSK: no clubbing, no cyanosis, no noted contractures of extremities Skin: no noted rashes, petechiae; temperature of skin is appropriate Neuro: moving all extremities without signs of weakness, CN II-XII intact Psych: cooperative, euthymic mood, insight and judgment impaired Patient Condition at Discharge: Good Plan - Discharge Summary Discharge Rx Participant: No New Discharge Prescriptions: New levETIRAcetam [Keppra] 750 mg PO Q12HR #60 tab Thiamine [Vitamin B-1] 100 mg PO DAILY #14 tab Continue Gabapentin [Neurontin] 600 mg PO TID Multivitamins, Thera [Multivitamin (formulary)] 1 tab PO DAILY Folic Acid 1 mg PO DAILY QUEtiapine [SEROquel] 150 mg PO HS lisinopriL [Prinivil] 10 mg PO DAILY Sodium Chloride Tab 1 gm PO DAILY Lidocaine [Lidoderm 5% Patch] 1 patch TRANSDERM DAILY Atorvastatin [Lipitor] 10 mg PO HS Metoprolol Tartrate [Lopressor] 100 mg PO BID Discharge Medication List Gabapentin [Neurontin] 600 mg PO TID 02/18/20 [History] Multivitamins, Thera [Multivitamin (formulary)] 1 tab PO DAILY 08/22/21 [History] Folic Acid 1 mg PO DAILY 01/02/22 [History] Atorvastatin [Lipitor] 10 mg PO HS 03/06/22 [History] Lidocaine [Lidoderm 5% Patch] 1 patch TRANSDERM DAILY 03/06/22 [History] Sodium Chloride Tab 1 gm PO DAILY 03/06/22 [History] Metoprolol Tartrate [Lopressor] 100 mg PO BID 05/25/22 [History] QUEtiapine [SEROquel] 150 mg PO HS 05/25/22 [History] lisinopriL [Prinivil] 10 mg PO DAILY 05/25/22 [History] Thiamine [Vitamin B-1] 100 mg PO DAILY #14 tab 09/24/22 [Rx] levETIRAcetam [Keppra] 750 mg PO Q12HR #60 tab 09/24/22 [Rx] Follow up Appointment(s)/Referral(s): [facility],Clinic [Primary Care Provider] - 1-2 days Patient Instructions/Handouts: Seizure/Epilepsy Discharge Instructions & Follow-Up, Hyponatremia (DC) Discharge Disposition: HOME WITH HOME HEALTH SERVICES
--- NOTE | 2022-09-24 20:12 | EEG ---
ELECTROENCEPHALOGRAM REPORT PREAMBLE: This is a 67-year-old male with seizures. The patient had a witnessed seizure with postictal confusion. The patient also has history of alcoholism. EEG FINDINGS: This is a 21-channel digital EEG recorded with video component, utilizing 10/20 International System with referential and bipolar montages. Background consists of well-developed, moderately well-regulated, mixed frequencies of 8 Hz alpha with some 6 to 7 Hz theta activity seen in bihemispheric region. Occasional low-amplitude fast- frequency beta activity was also seen. Background is posterior dominant and is reactive to eye opening and closing. Some drowsiness was seen with appearance of constant theta frequency rhythm. Deeper stages of sleep were not seen. No focal or generalized epileptiform activity was seen. IMPRESSION: This is a mildly abnormal EEG due to background slowing of mild degree. This is even generalized cerebral dysfunction as can be seen with encephalopathy or medication effect. No epileptiform activity was seen. MMMARISL / IJN: [id number] /
== END 2022-09-24 15:33 | disposition home health service (06) | DRG 101 ==
LOC: EC 09:58 → 5NMEDONC 12:43
PROVIDERS: ADMIT Internal Medicine; ATTEND Internal Medicine
PROC: 4A10X4Z Monitoring of Central Nervous Electrical Activity, External Approach (ICD-10-PCS; principal; 2022-09-23)
PROC: HZ2ZZZZ Detoxification Services for Substance Abuse Treatment (ICD-10-PCS; 2022-09-23)
DX: G40.909 Epilepsy, unspecified, not intractable, without status epilepticus (principal); E87.1 Hypo-osmolality and hyponatremia; F10.239 Alcohol dependence with withdrawal, unspecified; I42.9 Cardiomyopathy, unspecified; I50.9 Heart failure, unspecified; I69.319 Unspecified symptoms and signs involving cognitive functions following cerebral infarction; I67.1 Cerebral aneurysm, nonruptured; I11.0 Hypertensive heart disease with heart failure; Y90.0 Blood alcohol level of less than 20 mg/100 ml; I83.90 Asymptomatic varicose veins of unspecified lower extremity; I45.10 Unspecified right bundle-branch block; M54.50 Low back pain, unspecified; E78.5 Hyperlipidemia, unspecified; Z71.6 Tobacco abuse counseling; S00.91XA Abrasion of unspecified part of head, initial encounter; F17.210 Nicotine dependence, cigarettes, uncomplicated; G89.29 Other chronic pain; F12.90 Cannabis use, unspecified, uncomplicated; Z79.899 Other long term (current) drug therapy; Z85.01 Personal history of malignant neoplasm of esophagus; Z85.21 Personal history of malignant neoplasm of larynx; Z92.3 Personal history of irradiation; Z71.41 Alcohol abuse counseling and surveillance of alcoholic; W19.XXXA Unspecified fall, initial encounter
CPT/HCPCS: 36415; 70450; 80048; 80053; 80177; 80306; 80320; 83735; 85025; 93005; 95816; 99285

== ENCOUNTER 2022-12-14 06:58 | Day surgery (SDC) | payer OTHER, MEDICAID ==
[2022-12-11 12:01] VITALS: BMI 17.2
[2022-12-14 07:30] VITALS: TEMP 97.5
[2022-12-14] MEDS ORDERED: TRIAMCINOLONE ACETONIDE 40 MG/ML 1 ML VIAL ONE (08:07)
[2022-12-14] MEDS ORDERED: ROPIVACAINE 5 MG/ML 20 ML AMPULE ONE (08:07)
[2022-12-14] MEDS ORDERED: fentaNYL (PF) 50 MCG/ML 2 ML AMP ONE (08:07)
[2022-12-14] MEDS ORDERED: MIDAZOLAM 2 MG/2 ML VIAL ONE (08:07)
--- NOTE | 2022-12-14 08:32 | P.PCN ---
Date of Procedure: 12/14/22 Surgeon: Kori Bernard Pathology: none sent Condition: stable Disposition: PACU Description of Procedure: PREOPERATIVE DIAGNOSIS: Lumbar spondylosis without myelopathy, morbid obesity POSTOPERATIVE DIAGNOSIS: Lumbar spondylosis without myelopathy,morbid obesity PROCEDURES : Bilateral Radiofrequency thermocoagulation L4-L5, and L5-S1 medial branch, with fluoroscopic guidance ANESTHESIA: IV moderate conscious sedation with versed and fentanyl by the anesthesia Department and local infiltration with lidocaine 1% 5 ml Physician:Kori Bernard MD EBL: Minimal PROCEDURE INDICATION: The patient with low back pain secondary to lumbar facet arthropathy who had significant relief of pain with previous diagnostic lumbar medial branch block with Ropivacaine0.5%. PROCEDURE DESCRIPTION / TECHNIQUE: The patient was seen and identified in the preoperative area. Risks, benefits, complications, including but not limited to risk of infection ,bleeding , allergic reactions to the medications and no complete pain relief , and alternatives were discussed with the patient, the patient agreed to proceed with the procedure and signed the consent. IV was started. Vital signs remained stable throughout the procedure. Patient was taken to the OR and time out was completed. The patient was placed in the prone position on the procedure table. The lumber area was prepped and draped in the usual sterile fashion. . Vital signs were closely monitored during the procedure .IV sedation was used during the procedure to decrease patients anxiety. The target points were identified as follows: For the L5-S1 level which corresponds to the dorsal ramus of L5 the target point was at the superior medial aspect of the sacral ala on the Rt side of the spine on the AP view of fluoroscopy and for the L3, and L4 medial branches the target points were at the connection between the transverse process and the superior articular process of L4, and L5 vertebra respectively on the Rt oblique view of fluoroscopy. skin was marked, and localized with 1% lidocaineat these points. Subsequently, an 18 [id number] radiofrequency needles with a 10-mm curved active tips were advanced guided by fluoroscopy to each of the target points mentioned above in a superior medial direction to get the active tips as parallel as possible to the medial branches tracks. AP, oblique, and lateral views of fluoroscopy were used to verify needle tips position. Each level then underwent motor testing at 2.5 Hz and 0 to 3 volt with local stimulation, but no radicular symptoms down the legs. I then injected 1 mL of lidocaine 1% in each needle before starting radiofrequency thermocoagulation at 80 degrees celsius for 90 seconds. After that I injected 1 ml of PF Ropivacaine 0.5%(3 mls) with 40 mg of Kenalog, 1 mL of this mixture was given in each needle before taking the needles out intact. Then the left side with the same levels was done in the same manner. At the end of the procedure, the skin was cleansed and bandages were applied. A copy of needle placement fluoroscopy was saved on the C-arm machine. COMPLICATIONS: No acute complications. DISPOSITION / PLANS: The patient was placed in a supine position and transferred to the recovery area in a stable condition for observation and was discharged from the recovery room after meeting discharge criteria. Home discharge instructions given to the patient by the staff. The patient was reexamined prior to discharge. The patient will schedule a follow up in the clinic in 2-4 weeks.
[2022-12-14] MEDS ORDERED: IV FLUID CONTINUATION 1,000 ML IV ONE (08:39)
--- NOTE | 2022-12-14 08:45 | FL ---
EXAMINATION TYPE: FL guided pain mgmt statistic DATE OF EXAM: 12/14/2022 HISTORY: Fluoroscopy time 6 sec fl. .[id number] DAP. of fluoroscopy provided. IMPRESSION: 1. Fluoroscopy time.
[2022-12-14 08:57] VITALS: BP 132/81; PULSE 71; RESP 18
== END 2022-12-14 09:10 | disposition home or self-care (01) ==
LOC: ORPAIN 06:58
PROVIDERS: ATTEND Anesthesiology
DX: M47.816 Spondylosis without myelopathy or radiculopathy, lumbar region (principal); I11.0 Hypertensive heart disease with heart failure; I50.9 Heart failure, unspecified; E78.5 Hyperlipidemia, unspecified; J44.9 Chronic obstructive pulmonary disease, unspecified; F17.200 Nicotine dependence, unspecified, uncomplicated; Z86.73 Personal history of transient ischemic attack (TIA), and cerebral infarction without residual deficits; Z79.899 Other long term (current) drug therapy
CPT/HCPCS: 64635; 64636; J2250; J3010

== ENCOUNTER 2023-05-03 11:23 | Emergency (ER) | payer OTHER, MEDICAID ==
[2023-05-03] MEDS ORDERED: SODIUM CHLORIDE 0.9% 1,000 ML IV STA (11:53)
--- NOTE | 2023-05-03 12:16 | ED ---
Weakness HPI - General Chief complaint: Weakness Stated complaint: Weakness Time Seen by Provider: 05/03/23 11:34 Source: patient, EMS Mode of arrival: EMS - History of Present Illness Initial comments: Patient is a 67-year-old male presenting to the emergency room via EMS with concerns regarding increased weakness today in generalized unwell feeling. He also reports some mild shortness of breath when his weakness occurred. He reports that the weakness has improved slightly since he called an ambulance and arrived here to the emergency room but he still continues to feel generally unwell. His is at the bedside providing details of his past medical history which includes alcohol induced dementia, throat cancer with a history of hyponatremia and previous stroke. 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 - Related Data Home Medications Medication Instructions Recorded Confirmed Gabapentin [Neurontin] 600 mg PO TID 02/18/20 05/06/23 Multivitamins, Thera [Multivitamin 1 tab PO DAILY 08/22/21 05/06/23 (formulary)] Folic Acid 1 mg PO DAILY 01/02/22 05/06/23 Atorvastatin [Lipitor] 10 mg PO HS 03/06/22 05/06/23 Lidocaine [Lidoderm 5% Patch] 1 patch TRANSDERM DAILY 03/06/22 05/06/23 Sodium Chloride Tab 1 gm PO DAILY 03/06/22 05/06/23 Metoprolol Tartrate [Lopressor] 100 mg PO BID 05/25/22 05/06/23 lisinopriL [Prinivil] 10 mg PO DAILY 05/25/22 05/06/23 levETIRAcetam [Keppra] 250 mg PO Q12HR 05/06/23 05/06/23 Previous Rx's Medication Instructions Recorded Thiamine [Vitamin B-1] 100 mg PO DAILY #14 tab 09/24/22 Allergies Allergy/AdvReac Type Severity Reaction Status Date / Time No Known Allergies Allergy Verified 05/06/23 14:34 Review of Systems ROS Statement: Those systems with pertinent positive or pertinent negative responses have been documented in the HPI. ROS Other: All systems not noted in ROS Statement are negative. 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 CARDIOMYOPATHY, VARICOSE VEINS, CHRONIC BACK PAIN, DIFFICULTY WALKING DISTANCE OR SITTING, DRY MOUTH. Hx broken ribs from fall. Hx Metabolic Encephalopathy 2020. has a soft swelling noted hanging off rt elbow, hyponatremia w hospitalizations- last one 2020, MRI IN 2021 SHOWED SMALL STROKEBUT NOT SURE WHEN HE HAD IRT, FAILURE TO THRIVE History of Any Multi-Drug Resistant Organisms: None Reported Past Surgical History: Back Surgery, Heart Catheterization Additional Past Surgical History / Comment(s): COLONOSCOPY, PAIN CLINIC PROCEDURES, BACK SURGERY AT [facility] IN [place]. All teeth extracted. Past Anesthesia/Blood Transfusion Reactions: Previous Problems w/ Anesthesia Additional Past Anesthesia/Blood Transfusion Reaction / Comment(s): WITH 2 PAIN PROC WAS AWAKE, PROCEDURE VERY PAINFUL. Past Psychological History: No Psychological Hx Reported Smoking Status: Current every day smoker Past Alcohol Use History: Daily Past Drug Use History: Marijuana - Past Family History Father Family Medical History: Cancer Additional Family Medical History / Comment(s): Prostate cancer. Mother History Unknown: Yes Family Medical History: No Reported History Additional Family Medical History / Comment(s): Mother , not sure of cause. General Exam Limitations: altered mental status, physical limitation General appearance: alert, in no apparent distress, cachectic Head exam: Present: atraumatic, normocephalic, normal inspection Eye exam: Present: normal appearance, PERRL. Absent: scleral icterus, conjunc tival injection, periorbital swelling, periorbital tenderness Respiratory exam: Present: rales (Fine left lower). Absent: respiratory distress, wheezes, rhonchi, stridor, accessory muscle use Cardiovascular Exam: Present: regular rate, normal rhythm, normal heart sounds. Absent: systolic murmur, diastolic murmur, rubs, gallop, clicks GI/Abdominal exam: Present: soft, normal bowel sounds. Absent: distended, tenderness, guarding, rebound, rigid Extremities exam: Present: normal inspection, other (Generalized weakness of all extremities with poor mobility status.). Absent: pedal edema, joint swelling Back exam: Present: normal inspection Neurological exam: Present: alert, other (Slow but appropriate responses. Speech is slightly garbled due to history of epiglottis cancer.) Expanded Patient oriented to: Present: person, place. Absent: time Psychiatric exam: Present: flat affect Skin exam: Present: warm, dry, intact, normal color. Absent: rash Course Vital Signs 05/03/23 05/03/23 05/03/23 11:29 11:30 12:00 Temperature 98.1 F Pulse Rate 82 71 Respiratory Rate Blood Pressure 140/91 154/98 140/91 O2 Sat by Pulse 98 97 Oximetry 05/03/23 05/03/23 05/03/23 12:30 13:00 13:30 Temperature Pulse Rate 73 75 74 Respiratory 14 15 13 Rate Blood Pressure 122/80 126/85 136/85 O2 Sat by Pulse 96 95 95 Oximetry 05/03/23 13:40 Temperature 99.1 F Pulse Rate Respiratory Rate Blood Pressure O2 Sat by Pulse Oximetry Medical Decision Making - Medical Decision Making Was pt. sent in by a medical professional or institution (, PA, BOLTING MACHINE OPERATOR, urgent care, hospital, or usp...) When possible be specific @ -No Did you speak to anyone other than the patient for history (EMS, parent, family, police, friend...)? What history was obtained from this source @ -Yes comments spoke with regarding details of presenting illness past medical history and hospitalizations. Did you review nursing and triage notes (agree or disagree)? Why? @ -I reviewed and agree with nursing and triage notes Were old charts reviewed (outside hosp., previous admission, EMS record, old EKG, old radiological studies, urgent care reports/EKG's, usp records)? Report findings @ -Yes, I reviewed most recent EKG and laboratory studies on file. Differential Diagnosis (chest pain, altered mental status, abdominal pain women, abdominal pain men, vaginal bleeding, weakness, fever, dyspnea, syncope, headache, dizziness, GI bleed, back pain, seizure, CVA, palpatations, mental health, musculoskeletal)? @ -Differential Weakness: Hypoglycemia, shock, sepsis, hyponatremia, anemia, infection, PR, ETOH, adverse medicine reaction, overdose, stroke, this is not meant to be an all-inclusive list. EKG interpreted by me (3pts min.). @ -Sinus rhythm, ventricular rate 73 bpm, AR interval 153 ms, QRS duration 116 ms, QT/QTC 420/445 ms, PRT axes 75, 226, 44 X-rays interpreted by me (1pt min.). @ -Chest x-ray CT interpreted by me (1pt min.). @ -None done U/S interpreted by me (1pt. min.). @ -None done What testing was considered but not performed or refused? (CT, X-rays, U/S, labs)? Why? @ -None What meds were considered but not given or refused? Why? @ -None Did you discuss the management of the patient with other professionals (professionals i.e. , PA, BOLTING MACHINE OPERATOR, lab, RT, psych nurse, social insurance specialist, steam finisher, teacher, anti air warfare operations officer, case manager specialist)? Give summary @ -No Was smoking cessation discussed for >3mins.? @ -No Was critical care preformed (if so, how long)? @ -No Were there social determinants of health that impacted care today? How? (Homeles sness, low income, unemployed, alcoholism, drug addiction, transportation, low edu. Level, literacy, decrease access to med. care, prison, rehab)? @ -No Was there de-escalation of care discussed even if they declined (Discuss DNR or withdrawal of care, Hospice)? DNR status @ -No What co-morbidities impacted this encounter? (DM, HTN, Smoking, COPD, CAD, Cancer, CVA, ARF, Chemo, Hep., AIDS, mental health diagnosis, sleep apnea, morbid obesity)? @ -None Was patient admitted / discharged? Hospital course, mention meds given and route, prescriptions, significant lab abnormalities, going to OR and other pertinent info. @ -Weakness workup to be started with EKG, chest x-ray, CBC, CMP, lactic acid, urinalysis, TSH, ionized calcium, troponin and coags. Due to history of hyponatremia and alcohol induced dementia will also check ammonia level, magnesium and phosphorus. Will give 1 L fluid bolus and monitor. Tolerated fluid bolus well. Laboratory studies reveal low lymphocytes at 0.9 no other abnormalities on CBC, coags normal. Sodium low but stable at 132, chloride low at 95, potassium carbon dioxide and anion gap all normal BUN and creatinine low. Lactic acid normal calcium and ionized calcium phosphorus and magnesium all normal. Ammonia level less than 9, troponin negative, TSH normal, and urinalysis normal. Chest x-ray demonstrates no acute cardiopulmonary process. EKG shows sinus rhythm. Workup results discussed with patient and patient's spouse. Advise no indication for further workup at this time. Encouraged activity as tolerated including range of motion to help with generalized weakness. Questions and concerns answered. Return parameters to the emergency room discussed. Will discharge home in stable condition in the care of his spouse advising follow-up with primary care provider for further treatment and evaluation of generalized weakness. Undiagnosed new problem with uncertain prognosis? @ -No Drug Therapy requiring intensive monitoring for toxicity (Heparin, Nitro, Insulin, Cardizem)? @ -No Were any procedures done? @ -No Diagnosis/symptom? @ -Generalized weakness Acute, or Chronic, or Acute on Chronic? @ -Acute on chronic Uncomplicated (without systemic symptoms) or Complicated (systemic symptoms)? @ -Uncomplicated Side effects of treatment? @ -No Exacerbation, Progression, or Severe Exacerbation? @ -No Poses a threat to life or bodily function? How? (Chest pain, USA, PR, pneumonia, PE, COPD, DKA, ARF, appy, cholecystitis, CVA, Diverticulitis, Homicidal, Suicidal, threat to staff... and all critical care pts) @ -No Case discussed with Dr. Armenta - Lab Data Result diagrams: 05/03/23 12:03 05/03/23 12:03 Lab Results 05/03/23 05/03/23 05/03/23 Range/Units 12:03 12:03 12:03 WBC 8.1 (3.8-10.6) k/uL RBC 4.45 (4.30-5.90) m/uL Hgb 14.8 (13.0-17.5) gm/dL Hct 42.7 (39.0-53.0) % MCV 96.0 (80.0-100.0) fL MCH 33.3 (25.0-35.0) pg MCHC 34.7 (31.0-37.0) g/dL RDW 12.0 (11.5-15.5) % Plt Count 184 (150-450) k/uL MPV 7.9 Neutrophils % 79 % Lymphocytes % 12 % Monocytes % 6 % Eosinophils % 2 % Basophils % 0 % Neutrophils # 6.3 (1.3-7.7) k/uL Lymphocytes # 0.9 L (1.0-4.8) k/uL Monocytes # 0.5 (0-1.0) k/uL Eosinophils # 0.1 (0-0.7) k/uL Basophils # 0.0 (0-0.2) k/uL PT 9.7 (9.0-12.0) sec INR 0.9 (<1.2) APTT 27.4 (22.0-30.0) sec Sodium (137-145) mmol/L Potassium (3.5-5.1) mmol/L Chloride (98-107) mmol/L Carbon Dioxide (22-30) mmol/L Anion Gap mmol/L BUN (9-20) mg/dL Creatinine (0.66-1.25) mg/dL Est GFR (CKD-EPI)AfAm (>60 ml/min/1.73 sqM) Est GFR (CKD-EPI)NonAf (>60 ml/min/1.73 sqM) Glucose (74-99) mg/dL Plasma Lactic Acid Kj (0.7-2.0) mmol/L Calcium (8.4-10.2) mg/dL Ionized Calcium Myron (4.5-5.3) mg/dL Phosphorus (2.5-4.5) mg/dL Magnesium (1.6-2.3) mg/dL Total Bilirubin (0.2-1.3) mg/dL AST (17-59) U/L ALT (4-49) U/L Alkaline Phosphatase (38-126) U/L Ammonia (<30) umol/L Troponin I (0.000-0.034) ng/mL Total Protein (6.3-8.2) g/dL Albumin (3.5-5.0) g/dL TSH (0.465-4.680) mIU/L Urine Color Colorless Urine Appearance Clear (Clear) Urine pH 7.0 (5.0-8.0) Ur Specific [place] 1.003 (1.001-1.035) Urine Protein Negative (Negative) Urine Glucose (UA) Negative (Negative) Urine Ketones Negative (Negative) Urine Blood Negative (Negative) Urine Nitrite Negative (Negative) Urine Bilirubin Negative (Negative) Urine Urobilinogen <2.0 (<2.0) mg/dL Ur Leukocyte Esterase Negative (Negative) 05/03/23 05/03/23 05/03/23 Range/Units 12:03 12:03 12:03 WBC (3.8-10.6) k/uL RBC (4.30-5.90) m/uL Hgb (13.0-17.5) gm/dL Hct (39.0-53.0) % MCV (80.0-100.0) fL MCH (25.0-35.0) pg MCHC (31.0-37.0) g/dL RDW (11.5-15.5) % Plt Count (150-450) k/uL MPV Neutrophils % % Lymphocytes % % Monocytes % % Eosinophils % % Basophils % % Neutrophils # (1.3-7.7) k/uL Lymphocytes # (1.0-4.8) k/uL Monocytes # (0-1.0) k/uL Eosinophils # (0-0.7) k/uL Basophils # (0-0.2) k/uL PT (9.0-12.0) sec INR (<1.2) APTT (22.0-30.0) sec Sodium 132 L (137-145) mmol/L Potassium 4.5 (3.5-5.1) mmol/L Chloride 95 L (98-107) mmol/L Carbon Dioxide 29 (22-30) mmol/L Anion Gap 8 mmol/L BUN 5 L (9-20) mg/dL Creatinine 0.59 L (0.66-1.25) mg/dL Est GFR (CKD-EPI)AfAm >90 (>60 ml/min/1.73 sqM) Est GFR (CKD-EPI)NonAf >90 (>60 ml/min/1.73 sqM) Glucose 85 (74-99) mg/dL Plasma Lactic Acid Kj 1.1 (0.7-2.0) mmol/L Calcium 9.3 (8.4-10.2) mg/dL Ionized Calcium Myron 5.1 (4.5-5.3) mg/dL Phosphorus 4.3 (2.5-4.5) mg/dL Magnesium 2.1 (1.6-2.3) mg/dL Total Bilirubin 0.6 (0.2-1.3) mg/dL AST 24 (17-59) U/L ALT 20 (4-49) U/L Alkaline Phosphatase 102 (38-126) U/L Ammonia <9 (<30) umol/L Troponin I <0.012 (0.000-0.034) ng/mL Total Protein 7.5 (6.3-8.2) g/dL Albumin 4.5 (3.5-5.0) g/dL TSH 1.610 (0.465-4.680) mIU/L Urine Color Urine Appearance (Clear) Urine pH (5.0-8.0) Ur Specific [place] (1.001-1.035) Urine Protein (Negative) Urine Glucose (UA) (Negative) Urine Ketones (Negative) Urine Blood (Negative) Urine Nitrite (Negative) Urine Bilirubin (Negative) Urine Urobilinogen (<2.0) mg/dL Ur Leukocyte Esterase (Negative) - Radiology Data Radiology results: report reviewed, image reviewed Disposition Clinical Impression: Generalized weakness Disposition: HOME SELF-CARE Condition: Stable Instructions (If sedation given, give patient instructions): Weakness (ED) Additional Instructions: Please stay well hydrated and maintain good fluid intake. Please follow-up with your primary care provider. Please return to the Emergency Department if symptoms worsen or any other concerns. Is patient prescribed a controlled substance at d/c from ED?: No Referrals: [facility],Clinic [Primary Care Provider] - 1-2 days Time of Disposition: 13:30
[2023-05-03 12:17] LABS: Appearance,Urine Clear (Clear); Basophils % (A) 0 %; Bilirubin,Urine Negative (Negative); Blood,Urine Negative (Negative); Color,Urine Colorless; Eosinophils # (A) 0.1 k/uL (0-0.7); Eosinophils % (A) 2 %; Glucose,Urine (UA) Negative (Negative); HCT 42.7 % (39.0-53.0); HGB 14.8 gm/dL (13.0-17.5); Ketones,Urine Negative (Negative); Leukocyte Esterase,Urine Negative (Negative); Lymphocytes # (A) 0.9 k/uL (1.0-4.8); Lymphocytes % (A) 12 %; MCH 33.3 pg (25.0-35.0); MCHC 34.7 g/dL (31.0-37.0); Mean Platelet Volume 7.9; Monocytes # (A) 0.5 k/uL (0-1.0); Monocytes % (A) 6 %; Neutrophils # (A) 6.3 k/uL (1.3-7.7); Neutrophils % (A) 79 %; Nitrite,Urine Negative (Negative); Platelet Count 184 k/uL (150-450); Protein,Urine Negative (Negative); RBC 4.45 m/uL (4.30-5.90); Specific Gravity,Urine 1.003 (1.001-1.035); Urobilinogen,Urine <2.0 mg/dL (<2.0); WBC 8.1 k/uL (3.8-10.6)
[2023-05-03 12:29] LABS: INR 0.9 (<1.2); Partial Thromboplastin Time 27.4 sec (22.0-30.0); Prothrombin Time 9.7 sec (9.0-12.0)
[2023-05-03 12:30] LABS: Ionized Calcium 5.1 mg/dL (4.5-5.3)
[2023-05-03 12:32] LABS: Lactic Acid, Venous 1.1 mmol/L (0.7-2.0)
--- NOTE | 2023-05-03 12:34 | XR ---
EXAMINATION TYPE: XR chest 2V DATE OF EXAM: 05/03/2023 12:25 PM COMPARISON: Chest radiographs from 08/22/2021 TECHNIQUE: XR chest 2V Frontal and lateral views of the chest. CLINICAL INDICATION:Male, 67 years old with history of Weakness; FINDINGS: Lungs/Pleura: There is flattening of the diaphragm with increased lucency of the lungs. No evidence o f pneumothorax, pleural effusion or focal consolidation. Chronic senescent parenchyma change. Pulmonary vascularity: Unremarkable. Heart/mediastinum: Cardiomediastinal silhouette is unremarkable. Atherosclerotic calcifications are seen in the aorta. Musculoskeletal: No acute osseous pathology. Mild degenerative changes of the thoracic spine. Remote right-sided rib fractures. IMPRESSION: 1. No acute cardiopulmonary disease process. 2. COPD changes.
[2023-05-03 12:41] LABS: ALT 20 U/L (4-49); AST 24 U/L (17-59); African American GFR (CKD) >90 (>60 ml/min/1.73 sqM); Albumin 4.5 g/dL (3.5-5.0); Alkaline Phosphatase 102 U/L (38-126); Anion Gap 8 mmol/L; Blood Urea Nitrogen 5 mg/dL (9-20); Calcium 9.3 mg/dL (8.4-10.2); Carbon Dioxide 29 mmol/L (22-30); Chloride 95 mmol/L (98-107); Glucose 85 mg/dL (74-99); Magnesium 2.1 mg/dL (1.6-2.3); Non-African American GFR(CKD) >90 (>60 ml/min/1.73 sqM); Phosphorus 4.3 mg/dL (2.5-4.5); Potassium 4.5 mmol/L (3.5-5.1); Sodium 132 mmol/L (137-145); Total Bilirubin 0.6 mg/dL (0.2-1.3); Total Protein 7.5 g/dL (6.3-8.2)
[2023-05-03 13:40] VITALS: BP 136/85; PULSE 74; RESP 13
[2023-05-03 13:41] VITALS: TEMP 99.1
== END 2023-05-03 14:39 | disposition home or self-care (01) ==
LOC: EC 11:23
DX: R53.1 Weakness (principal); J44.9 Chronic obstructive pulmonary disease, unspecified; I11.0 Hypertensive heart disease with heart failure; I50.9 Heart failure, unspecified; E78.5 Hyperlipidemia, unspecified; M19.90 Unspecified osteoarthritis, unspecified site; F17.200 Nicotine dependence, unspecified, uncomplicated; F12.90 Cannabis use, unspecified, uncomplicated; Z79.1 Long term (current) use of non-steroidal anti-inflammatories (NSAID); Z79.899 Other long term (current) drug therapy
CPT/HCPCS: 36415; 71046; 80053; 81003; 82140; 82330; 83605; 83735; 84100; 84443; 84484; 85025; 85610; 85730; 93005; 99285

== ENCOUNTER → 2023-05-06 | Outpatient (CLI) | payer OTHER, MEDICAID ==
[2023-05-06 14:43] VITALS: BP 112/73; PULSE 60; RESP 12; TEMP 97.5
--- NOTE | 2023-05-06 14:52 | P.PAINPG ---
PQRS Measure Charge Sheet Comment: HISTORY OF PRESENT ILLNESS: 67 yr old male w at side presents today w severe and chronic LBP x 35 yrs secondary to post laminectomy syndrome for evaluation s/p BL RFA L4-L5, L5-S1 in Nov 2022. Pt states he experienced 90% pain relief s/p procedure. Pt states pain level is at 7/10 in intensity, constant, localized in the mid to lower lumbar spine, shooting in character without shooting pain. Pain is provoked by PT years ago, walking/sitting/ standing in one position for periods of 10 min or more. Pain is alleviated by OTC medications, topicals, heat, laying supine, repositioning and rest. Oswestry axial pain score of 29. Interventional procedures include BL RFA L3-L5 (January 2022, Nov 2022) Medications include OTC meds REVIEW OF ORGAN SYSTEMS: CONSTITUTIONAL: No fevers or chills. No recent weight loss. NEUROLOGICAL: + numbness and tingling along the distal extremities. No seizure disorders or headaches. MUSCULOSKELETAL: + pain PSYCHIATRIC: Denies current depression or suicidal thoughts. Physical Examinations : Constitutional : Cooperative , not in acute distress . Neurologic : Cranial nerve II to XII intact. No focal neurological deficits. Psychiatric : alert & oriented x 3. Matching mood & appropriate affect. Judgment & insight intact. Musculoskeletal : Cervical Spine Motor strength in the deltoid and biceps: Normal right side. Normal Left side Motor strength biceps and the wrist extensors: Normal right side . Normal left side Motor strength in the triceps muscle: Normal right side. Normal left side Deep tendon reflexes: Normal at the biceps. Normal at Brachioradialis. Normal at triceps Vertebral body tenderness to deep palpation over Cervical facet loading test: positive bilaterally Spurling test: positive bilaterally Neck distraction test: positive bilaterally Julieta sign: positive bilaterally Lumbar spine Motor strength lower extremities ,thigh and legs 5/5 Right side , 5/5 Left side Deep tendon reflexes : Normal Knee Jerk. Normal Ankle Jerk Vertebral body tenderness over Lumbar facet Loading Test: positive Right / positive Left over BL L4-L5, L5-S1 facets Range of motion of the lumbar spine Flexion 30 degrees, extension 10 degrees Straight Leg Raise test: Left/ Right positive at degree Tano test: positive right / positive left. Severe tenderness over the Sacroiliac joint on the Right / Left sides Gaenslen test: positive bilaterally Seated flexion test: positive bilaterally. Sacral spine : Severe tenderness over the Sacroiliac joint: right side / left side Range of motion: Flexion of the lumbar spine <60 degrees Range of motion: Extension of the lumbar spine <20 degrees Gaenslen's Test positive Mohit's Test positive Tano test: positive right side / left side Thigh Thrust Test Sacral Thrust Test Assessment/ Plan : Lumbar pain secondary to post laminectomy syndrome Recommendation of BL iliolumbar ligament injections. Risks, benefits of procedure discussed and patient verbalized understanding. Admits to aspirin or anti- coagulant use or medical history of diabetes. Protocol for discontinuation/ continuation of medications autumn procedure discussed. All questions answered. I have spent greater than 30 minutes on patient care today. Dr Calix was available by phone for the evaluation of this patient. The time was used to review the medical records including relevant urine studies and Prescription history (MAPs), review of the available imaging, evaluation and examination of the patient, coordination of care with the medical staff and if applicable referring physicians, as well as creation of the medical record PQRS Narrative: Smoking Status Current every day smoker Hx Alcohol Use (MH) Yes: 6 BEERS A NIGHT. Home Medications: Ambulatory Orders Gabapentin [Neurontin] 600 mg PO TID 02/18/20 Multivitamins, Thera [Multivitamin (formulary)] 1 tab PO DAILY 08/22/21 Folic Acid 1 mg PO DAILY 01/02/22 Atorvastatin [Lipitor] 10 mg PO HS 03/06/22 Lidocaine [Lidoderm 5% Patch] 1 patch TRANSDERM DAILY 03/06/22 Sodium Chloride Tab 1 gm PO DAILY 03/06/22 Metoprolol Tartrate [Lopressor] 100 mg PO BID 05/25/22 lisinopriL [Prinivil] 10 mg PO DAILY 05/25/22 Thiamine [Vitamin B-1] 100 mg PO DAILY #14 tab 09/24/22 levETIRAcetam [Keppra] 250 mg PO Q12HR 05/06/23 Controlled Substance Measures - Controlled Substance Measures Is patient prescribed a controlled substance at discharge?: No
== END ==
LOC: PNWHC3 14:09
PROVIDERS: ATTEND Specialist
DX: M96.1 Postlaminectomy syndrome, not elsewhere classified (principal); M54.50 Low back pain, unspecified; F17.200 Nicotine dependence, unspecified, uncomplicated
CPT/HCPCS: 99211

== ENCOUNTER → 2023-06-18 | Day surgery (SDC) | payer OTHER, MEDICAID ==
[2023-06-14 15:26] VITALS: BMI 19.3
[~2023-06-18] MED LIST changes: +ROPIVACAINE 5MG/ML 20ML VIAL ONE; +methylPREDNISolone ACETATE 40 MG/ML 1 ML VIAL ONE
[2023-06-18 06:25] VITALS: TEMP 97.6
[2023-06-18 07:26] VITALS: BP 118/76; PULSE 77; RESP 14
--- NOTE | 2023-06-18 07:32 | P.PCN ---
Date of Procedure: 06/18/23 Procedure(s) Performed: Procedure= bilateral iliolumbar ligament steroid injection under fluoroscopy guidance (fluoroscopy image stored on file in the radiology Department ) Preoperative diagnosis= 1- bilateral iliolumbar ligament neuralgia 2-lumbar degenerative disc disease 3-lumbar spondylosis with facet arthropathy Postoperative diagnosis=Same as preop Diagnosis . Complication = none Condition= stable Anesthesia= local anesthesia with ropivacaine 0.5% 4 ml only Indication for the procedure= patient complaining of low back pain , examination was positive for severe tenderness over the iliolumbar ligament bilaterally and patient diagnosed with iliolumbar ligament neuralgia, for this reason he was good candidate for iliolumbar ligament steroid injection. Description of the procedure= procedure risk and benefits discussed with the patient, including but not limited, risk of infection and bleeding, and ALLERGIC reaction to the medication and not complete pain relief and patient agreed with the preceding patient taken to the operating room, placed in prone position or standard monitors applied to the patient then after induction of anesthesia back prepped with chlorhexidine 3 times , Then under strict sterile technique, first I did the right side the which was identified under fluoroscopy guidance been local infiltration of the skin and subcu interstitial with lidocaine 1% then 22-gauge Quincke Needle advanced slowly under fluoroscopy and placed in the middle of the distance between the L5 transver process and the sacral ala ,needle placement confirmed with AP and oblique and lateral view, and after appropriate needle placement confirmed and after negative aspiration, or heme , then Ropivacaine 0.5% 3 mL, and 20 mg of Depo-Medrol mixed together and injected after negative aspiration patient tolerated the procedure well without any complication. Then the exact same procedure done for the left side.
--- NOTE | 2023-06-18 09:02 | FL ---
Fluoroscopy INDICATION: Pain FINDINGS: Fluoroscopy time: 6 seconds. Total dose area product (DAP) in uGy*m?, mGy*cm? (or similar): 0.39540 Images obtained: 4. IMPRESSION: 1. Documentation of fluoroscopy.
== END ==
LOC: ORPAIN 06:03
PROVIDERS: ATTEND Specialist
DX: M51.36 Other intervertebral disc degeneration, lumbar region (principal); M47.816 Spondylosis without myelopathy or radiculopathy, lumbar region; G58.8 Other specified mononeuropathies; Z79.82 Long term (current) use of aspirin
CPT/HCPCS: 20550; J1030; J2795

== ENCOUNTER → 2023-07-17 | Outpatient (CLI) | payer MEDICAID, OTHER ==
[2023-07-17 12:46] VITALS: BP 117/80; PULSE 92; RESP 15; TEMP 98.4
--- NOTE | 2023-07-17 14:34 | P.PAINPG ---
PQRS Measure Charge Sheet Comment: HISTORY OF PRESENT ILLNESS: 67 yr old male w at side presents today w severe and chronic LBP x 35 yrs secondary to post laminectomy syndrome for evaluation s/p BL iliolumbar ligament injection. Pt states he experienced 80% pain relief x 1 wks s/p procedure. Pt states pain level is at 7/10 in intensity, constant, localized in the mid to lower lumbar spine, shooting in character without shooting pain. Pain is provoked by PT years ago, walking/sitting/ standing in one position for periods of 10 min or more. Pain is alleviated by OTC medications, topicals, heat, laying supine, repositioning and rest. Oswestry axial pain score of 28. Interventional procedures include Caudal MORIS w Lysis x2, BL RFA L3-L5 (January 2022, Nov 2022), BL iliolumbar x1 Medications include OTC meds REVIEW OF ORGAN SYSTEMS: CONSTITUTIONAL: No fevers or chills. No recent weight loss. NEUROLOGICAL: + numbness and tingling along the distal extremities. No seizure disorders or headaches. MUSCULOSKELETAL: + pain PSYCHIATRIC: Denies current depression or suicidal thoughts. Physical Examinations : Constitutional : Cooperative , not in acute distress . Neurologic : Cranial nerve II to XII intact. No focal neurological deficits. Psychiatric : alert & oriented x 3. Matching mood & appropriate affect. Judgment & insight intact. Musculoskeletal : Cervical Spine Motor strength in the deltoid and biceps: Normal right side. Normal Left side Motor strength biceps and the wrist extensors: Normal right side . Normal left side Motor strength in the triceps muscle: Normal right side. Normal left side Deep tendon reflexes: Normal at the biceps. Normal at Brachioradialis. Normal at triceps Vertebral body tenderness to deep palpation over Cervical facet loading test: positive bilaterally Spurling test: positive bilaterally Neck distraction test: positive bilaterally Julieta sign: positive bilaterally Lumbar spine Motor strength lower extremities ,thigh and legs 5/5 Right side , 5/5 Left side Deep tendon reflexes : Normal Knee Jerk. Normal Ankle Jerk Vertebral body tenderness over L5 Lumbar facet Loading Test: positive Right / positive Left Range of motion of the lumbar spine Flexion 30 degrees, extension 10 degrees Straight Leg Raise test: Left/ Right positive at degree Tano test: positive right / positive left. Severe tenderness over the Sacroiliac joint on the Right / Left sides Gaenslen test: positive bilaterally Seated flexion test: positive bilaterally. Sacral spine : Severe tenderness over the Sacroiliac joint: right side / left side Range of motion: Flexion of the lumbar spine <60 degrees Range of motion: Extension of the lumbar spine <20 degrees Gaenslen's Test positive Mohit's Test positive Tano test: positive right side / left side Thigh Thrust Test Sacral Thrust Test Assessment/ Plan : Lumbar pain secondary to post laminectomy syndrome Recommendation of Caudal MORIS w Lysis. May need a series of injections for optimal pain relief. Risks, benefits of procedure discussed and patient verbalized understanding. Admits to aspirin or anti- coagulant use or medical history of diabetes. Protocol for discontinuation/ continuation of medications autumn procedure discussed. Valium 5mg #2 NR Use, side effects, adverse reactions and safe storage discussed. Pt acknowledged understanding. All questions answered. I have spent greater than 30 minutes on patient care today. Dr Calix was available by phone for the evaluation of this patient. The time was used to review the medical records including relevant urine studies and Prescription history (MAPs), review of the available imaging, evaluation and examination of the patient, coordination of care with the medical staff and if applicable referring physicians, as well as creation of the medical record PQRS Narrative: Smoking Status Current every day smoker Hx Alcohol Use (MH) Yes: rare; former daily use Home Medications: Ambulatory Orders Gabapentin [Neurontin] 600 mg PO TID 02/18/20 Multivitamins, Thera [Multivitamin (formulary)] 1 tab PO DAILY 08/22/21 Folic Acid 1 mg PO DAILY 01/02/22 Atorvastatin [Lipitor] 10 mg PO HS 03/06/22 Lidocaine [Lidoderm 5% Patch] 1 patch TRANSDERM DAILY 03/06/22 Sodium Chloride Tab 1 gm PO DAILY 03/06/22 Metoprolol Tartrate [Lopressor] 100 mg PO BID 05/25/22 lisinopriL [Prinivil] 10 mg PO DAILY 05/25/22 Thiamine [Vitamin B-1] 100 mg PO DAILY #14 tab 09/24/22 levETIRAcetam [Keppra] 250 mg PO Q12HR 05/06/23 diazePAM [Valium] 5 mg PO Q24H PRN 1 Days #2 tab 07/17/23 Controlled Substance Measures - Controlled Substance Measures Is patient prescribed a controlled substance at discharge?: Yes When asked, does pt state using other controlled substances?: Yes If prescribed controlled substance>3 days was MAPS reviewed?: Prescribed <3 Days
== END ==
LOC: PNWHC3 12:13
PROVIDERS: ATTEND Specialist
DX: M96.1 Postlaminectomy syndrome, not elsewhere classified (principal); M54.50 Low back pain, unspecified; F17.200 Nicotine dependence, unspecified, uncomplicated
CPT/HCPCS: 99211

== ENCOUNTER 2023-08-13 05:57 | Day surgery (SDC) | payer OTHER ==
[2023-08-08 12:48] VITALS: BMI 15.6
[2023-08-13] MEDS ORDERED: LACTATED RINGERS 1,000 ML IV SCH (06:13)
[2023-08-13 06:42] VITALS: RESP 20; TEMP 97.3
[2023-08-13] MEDS ORDERED: LIDOCAINE 1% (10MG/ML) FOR IV START INTRADERMA ONE (06:42)
[2023-08-13] MEDS ORDERED: methylPREDNISolone ACETATE 80 MG/ML 1 ML VIAL ONE (07:12)
[2023-08-13] MEDS ORDERED: ROPIVACAINE 5MG/ML 20ML VIAL ONE (07:12)
[2023-08-13] MEDS ORDERED: IOPAMIDOL M200 10 ML VIAL ONE (07:12)
[2023-08-13] MEDS ORDERED: IV FLUID CONTINUATION 1,000 ML IV ONE (07:40)
--- NOTE | 2023-08-13 07:44 | P.PCN ---
Date of Procedure: 08/13/23 Description of Procedure: PREOP DIAGNOSIS: 1- Lumbar postlaminectomy syndrome. POSTOP DIAGNOSIS:1- Lumbar postlaminectomy syndrome. PROCEDURE: 1-Caudal epidural steroid injection with epidurolysis and epidurogram under fluoroscopic guidance. (Fluoroscopy images available in the radiology Department ) 2-caudal epidurogram. ANESTHESIA:Local EBL: Minimal. PROCEDURE INDICATION: The patient with post-laminectomy syndrome with low back pain and radiculopathy radiating down in both legs, here for a caudal epidural steroid injection with epidurolysis. PROCEDURE DESCRIPTION: The patient was seen and identified in the preoperative area. Risks, benefits, complications, and alternatives were discussed with the patient. The patient agreed to proceed with the procedure and signed the consent. IV was started, and vital signs were stable. 1 g IV Piggyback Started Pre-Op. Patient was taken to the OR and time out was completed. The patient was placed in the prone position on procedure table and a pillow was placed under the abdomen to reduce lumbar lordosis. The lumbosacral area was prepped twice with chlorhexidine and draped in the usual sterile fashion. Vital signs were closely monitored during the procedure. lateral view and the anterior-posterior plates of the sacrum were identified with infiltration of the area overlying the sacral hiatus with 1% lidocaine .A 17 gauge RK epidural needle was used to advance through the sacral hiatus into the caudal epidural space. Omnipaque 200, 4 mL was injected and the position of the needle was verified to be in the midline. A Racz catheter was introduced into the epidural space and was advanced towards the L5-S1 and L4-L5 interspace under direct fluoroscopic guidance. Multiple passes were made with the catheter for lysis of epidural adhesions. Depo-Medrol 80 mg ( preservative-free ) with 3mlof preservative free normal saline was injected slowly. Additional spread was seen to L4 under fluoroscopy. The needle and the catheter were withdrawn intact. EPIDUROGRAM: Omnipaque 200, 4 mL ml was injected with spread of the dye into the caudal epidural space and with spread cutoff at L5 prior to epidurolysis. Post epidurolysis dye 3 ml was injected and spread was seen to L3-4.There was further spread of the solution together with the dye above the L3 COMPLICATIONS: None. DISPOSITION / PLANS: The patient was placed in a supine position and transferred to the recovery area in a stable condition for observation and was discharged from the recovery room after meeting discharge criteria. Home discharge in structions given to the patient by the staff. The patient was reexamined prior to discharge. The patient will schedule a follow up in the clinic in 2-4 weeks.
--- NOTE | 2023-08-13 08:22 | FL ---
Intraoperative/procedural fluoroscopic services were provided for pain management. Total fluoroscopy time is 104.5 seconds with a total of 4 submitted images to PACS. Total DAP [id number] mGym2. Please se e the operative note for further details.
[2023-08-13 08:27] VITALS: BP 109/65; PULSE 62
== END 2023-08-13 08:08 | disposition home or self-care (01) ==
LOC: ORPAIN 05:57
PROVIDERS: ATTEND Pain Medicine Interventional Pain Medicine
DX: M96.1 Postlaminectomy syndrome, not elsewhere classified (principal); I10 Essential (primary) hypertension; J44.9 Chronic obstructive pulmonary disease, unspecified; F17.200 Nicotine dependence, unspecified, uncomplicated; Z79.899 Other long term (current) drug therapy
CPT/HCPCS: 62264; J1040; Q9966; J2795

== ENCOUNTER → 2023-09-18 | Outpatient (CLI) | payer OTHER, MEDICAID ==
[2023-09-18 09:51] VITALS: BP 121/79; PULSE 58; RESP 15; TEMP 98.6
--- NOTE | 2023-09-18 14:09 | P.PAINPG ---
PQRS Measure Charge Sheet Comment: HISTORY OF PRESENT ILLNESS: A 68 yr old male w at side presents today w severe and chronic LBP x 35 yrs secondary to post laminectomy syndrome for evaluation s/p Caudal MORIS w Lysis #3. Pt states he experienced 80% pain relief x 2 wks s/p procedure. Pt states pain level is at 7/10 in intensity, constant, localized in the mid to lower lumbar spine, predominantly axial, shooting in character without shooting pain. Pain is provoked by PT years ago, walking/sitting/ standing in one position for periods of 10 min or more. Pain is alleviated by OTC medications, topicals, heat, laying supine, repositioning and rest. Oswestry axial pain score of 28. Interventional procedures include Caudal MORIS w Lysis x3, BL RFA L3-L5 (January 2022, Nov 2022), BL iliolumbar x1 Medications include Lidoderm, Neurontin, Tyl REVIEW OF ORGAN SYSTEMS: CONSTITUTIONAL: No fevers or chills. No recent weight loss. NEUROLOGICAL: + numbness and tingling along the distal extremities. No seizure disorders or headaches. MUSCULOSKELETAL: + pain PSYCHIATRIC: Denies current depression or suicidal thoughts. Physical Examinations : Constitutional : Cooperative , not in acute distress . Neurologic : Cranial nerve II to XII intact. No focal neurological deficits. Psychiatric : alert & oriented x 3. Matching mood & appropriate affect. Judgment & insight intact. Musculoskeletal : Cervical Spine Motor strength in the deltoid and biceps: Normal right side. Normal Left side Motor strength biceps and the wrist extensors: Normal right side . Normal left side Motor strength in the triceps muscle: Normal right side. Normal left side Deep tendon reflexes: Normal at the biceps. Normal at Brachioradialis. Normal at triceps Vertebral body tenderness to deep palpation over Cervical facet loading test: positive bilaterally Spurling test: positive bilaterally Neck distraction test: positive bilaterally Julieta sign: positive bilaterally Lumbar spine Motor strength lower extremities ,thigh and legs 5/5 Right side , 5/5 Left side Deep tendon reflexes : Normal Knee Jerk. Normal Ankle Jerk Vertebral body tenderness over L5 Lumbar facet Loading Test: positive Right / positive Left Range of motion of the lumbar spine Flexion 30 degrees, extension 10 degrees Straight Leg Raise test: Left/ Right positive at degree Tano test: positive right / positive left. Severe tenderness over the Sacroiliac joint on the Right / Left sides Gaenslen test: positive bilaterally Seated flexion test: positive bilaterally. Sacral spine : Severe tenderness over the Sacroiliac joint: right side / left side Range of motion: Flexion of the lumbar spine <60 degrees Range of motion: Extension of the lumbar spine <20 degrees Gaenslen's Test positive Mohit's Test positive Tano test: positive right side / left side Thigh Thrust Test Sacral Thrust Test Assessment/ Plan : Lumbar pain secondary to post laminectomy syndrome Recommendation of lumbar x ray M51.36 May need additional testing if indicated. Pt acknowledged understanding. All questions answered. I have spent greater than 30 minutes on patient care today. Dr Calix was available by phone for the evaluation of this patient. The time was used to review the medical records including relevant urine studies and Prescription history (MAPs), review of the available imaging, evaluation and examination of the patient, coordination of care with the medical staff and if applicable referring physicians, as well as creation of the medical record PQRS Narrative: Smoking Status Current every day smoker Hx Alcohol Use (MH) Yes: rare; former daily use Home Medications: Ambulatory Orders Gabapentin [Neurontin] 600 mg PO TID 02/18/20 Multivitamins, Thera [Multivitamin (formulary)] 1 tab PO DAILY 08/22/21 Folic Acid 1 mg PO DAILY 01/02/22 Atorvastatin [Lipitor] 10 mg PO HS 03/06/22 Lidocaine [Lidoderm 5% Patch] 1 patch TRANSDERM DAILY 03/06/22 Sodium Chloride Tab 1 gm PO DAILY 03/06/22 Metoprolol Tartrate [Lopressor] 100 mg PO BID 05/25/22 lisinopriL [Prinivil] 10 mg PO DAILY 05/25/22 Thiamine [Vitamin B-1] 100 mg PO DAILY #14 tab 09/24/22 levETIRAcetam [Keppra] 250 mg PO Q12HR 05/06/23 diazePAM [Valium] 5 mg PO Q24H PRN 1 Days #2 tab 07/17/23 Controlled Substance Measures - Controlled Substance Measures Is patient prescribed a controlled substance at discharge?: No
== END ==
LOC: PNWHC3 08:47
PROVIDERS: ATTEND Specialist
DX: M96.1 Postlaminectomy syndrome, not elsewhere classified (principal); F17.200 Nicotine dependence, unspecified, uncomplicated
CPT/HCPCS: 99211

== ENCOUNTER → 2023-09-18 | Outpatient (CLI) | payer OTHER, MEDICAID ==
--- NOTE | 2023-09-18 10:10 | XR ---
EXAMINATION TYPE: XR lumbar spine 2 or 3V DATE OF EXAM: 09/18/2023 CLINICAL HISTORY: pain TECHNIQUE: Three views of the lumbar spine are submitted. COMPARISON: None. FINDINGS: Rotoscoliosis convex to the right. Severe multilevel degenerative disc disease with spondylosis. Face t joint arthropathy. No fracture or dislocation. No evidence of bony destructive process. IMPRESSION: No acute fracture or dislocation is seen in the lumbar spine. ICD 10 NO FRACTURE, INITIAL EVALUATION
== END | disposition home or self-care (01) ==
LOC: RADXRMAIN 09:40
PROVIDERS: ATTEND Physician Assistant Medical
DX: M51.36 Other intervertebral disc degeneration, lumbar region (principal)
CPT/HCPCS: 72100

== ENCOUNTER → 2023-10-09 | Outpatient (CLI) | payer OTHER ==
--- NOTE | 2023-10-13 20:10 | MR ---
EXAMINATION TYPE: MR lumbar spine wo con DATE OF EXAM: 10/09/2023 COMPARISON: Radiograph 09/18/2023 HISTORY: 68-year-old male Pain low back into buttocks/legs, Numbness bilat legs TECHNIQUE: Multiplanar, multisequence images of the lumbar spine were acquired without IV contrast. FINDINGS: Degenerated dextro convex scoliosis of the lumbar spine. Multilevel moderate to advanced disc or simply degenerative changes present with desiccated and bulgi ng disks throughout. Multiple levels of Modic type I edematous endplate change is present especially along the size of the cavity prominently at L1-L2 and L2-L3 towards the left. Multilevel hypertrophic facet arthropathy. Overall alignment is maintained. Vertebral body heights are preserved. Conus medullaris is normal. Changes result in variable mild narrowing of the spinal canal throughout without any high-grade canal compromise. On the left, changes result in severe neuroforaminal stenoses at L1-L2 and L2-L3. Moderate at L3-L4 a nd mild at L4-L5. On the right, changes result in moderate to severe neuroforaminal stenosis that L3-L4 and moderate at L4-L5. Mild at L2-L3 and L5-S1. No prevertebral or paravertebral soft tissue normally seen. IMPRESSION: 1. Advanced degenerated dextroconvex scoliosis. No vertebral compression collapse or malalignment. 2. Associated edematous Modic type I change especially at L1-L2 and L2-L3 towards the left. 3. Mild narrowing of the spinal canal at multiple levels without high-grade canal compromise. 4. Variable neural foraminal stenosis as outlined above. Severe on the left at L1-L2 and L2-L3. Moder ate to severe on the right L3-L4.
== END | disposition home or self-care (01) ==
LOC: RADMRIMAIN 08:21
PROVIDERS: ATTEND Specialist
DX: M51.36 Other intervertebral disc degeneration, lumbar region (principal); R60.0 Localized edema; M99.73 Connective tissue and disc stenosis of intervertebral foramina of lumbar region
CPT/HCPCS: 72148

== ENCOUNTER → 2023-11-04 | Outpatient (CLI) | payer OTHER, MEDICAID ==
[2023-11-04 09:48] VITALS: BP 108/76; PULSE 79; RESP 14
--- NOTE | 2023-11-04 13:59 | P.PAINPG ---
Objective - Vital Signs Vital signs: Intake & Output 11/03/23 11/04/23 11/04/23 18:59 06:59 18:59 Weight 53.524 kg PQRS Measure Charge Sheet Comment: HISTORY OF PRESENT ILLNESS: A 68 yr old male w at side presents today w severe and chronic LBP x 35 yrs secondary to post R L4-L5 sacha laminectomy (2013) syndrome for evaluation of MRI results. Pt states pain level is at 6/10 in intensity, constant, localized in the mid to lower lumbar spine, predominantly axial, shooting in character w shooting pain down the BLEs. Pain is provoked by PT years ago, walking/sitting/ standing in one position for periods of 10 min or more. Pain is alleviated by physician guided home stretching regimen every morning x 1 yr, medications, topicals, heat, laying supine, repositioning and rest. Oswestry axial pain score of 28. Interventional procedures include Caudal MORIS w Lysis x3, BL RFA L3-L5 (January 2022, Nov 2022), BL iliolumbar x1 Medications include Aleve, Lidoderm, Neurontin, Tyl, Cannabis use REVIEW OF ORGAN SYSTEMS: CONSTITUTIONAL: No fevers or chills. No recent weight loss. NEUROLOGICAL: + numbness and tingling along the distal extremities. No seizure disorders or headaches. MUSCULOSKELETAL: + pain PSYCHIATRIC: Denies current depression or suicidal thoughts. Physical Examinations : Constitutional : Cooperative , not in acute distress . Neurologic : Cranial nerve II to XII intact. No focal neurological deficits. Psychiatric : alert & oriented x 3. Matching mood & appropriate affect. Judgment & insight intact. Musculoskeletal : Cervical Spine Motor strength in the deltoid and biceps: Normal right side. Normal Left side Motor strength biceps and the wrist extensors: Normal right side . Normal left side Motor strength in the triceps muscle: Normal right side. Normal left side Deep tendon reflexes: Normal at the biceps. Normal at Brachioradialis. Normal at triceps Vertebral body tenderness to deep palpation over Cervical facet loading test: positive bilaterally Spurling test: positive bilaterally Neck distraction test: positive bilaterally Julieta sign: positive bilaterally Lumbar spine Motor strength lower extremities ,thigh and legs 5/5 Right side , 5/5 Left side Deep tendon reflexes : Normal Knee Jerk. Normal Ankle Jerk Vertebral body tenderness over L4 Lumbar facet Loading Test: positive Right / positive Left Range of motion of the lumbar spine Flexion 30 degrees, extension 10 degrees Straight Leg Raise test: Left/ Right positive at <35 degrees , R > L Tano test: positive right / positive left. Severe tenderness over the Sacroiliac joint on the Right / Left sides Gaenslen test: positive bilaterally Seated flexion test: positive bilaterally. Sacral spine : Severe tenderness over the Sacroiliac joint: right side / left side Range of motion: Flexion of the lumbar spine <60 degrees Range of motion: Extension of the lum bar spine <20 degrees Gaenslen's Test positive Mohit's Test positive Tano test: positive right side / left side Thigh Thrust Test Sacral Thrust Test Imaging: MRI noncontrast of the lumbar spine from 10/09/23 reviewed Assessment/ Plan : Lumbar pain secondary to post laminectomy syndrome Recommendation of BL TFESI L4-L5 #1. May need additional testing if indicated. Pt acknowledged understanding. All questions answered. I have spent greater than 30 minutes on patient care today. Dr Calix was available by phone for the evaluation of this patient. The time was used to review the medical records including relevant urine studies and Prescription history (MAPs), review of the available imaging, evaluation and examination of the patient, coordination of care with the medical staff and if applicable referring physicians, as well as creation of the medical record PQRS Narrative: Smoking Status Current every day smoker Hx Alcohol Use (MH) Yes: rare; former daily use Home Medications: Ambulatory Orders Gabapentin [Neurontin] 600 mg PO TID 02/18/20 Multivitamins, Thera [Multivitamin (formulary)] 1 tab PO DAILY 08/22/21 Folic Acid 1 mg PO DAILY 01/02/22 Atorvastatin [Lipitor] 10 mg PO HS 03/06/22 Lidocaine [Lidoderm 5% Patch] 1 patch TRANSDERM DAILY 03/06/22 Sodium Chloride Tab 1 gm PO DAILY 03/06/22 Metoprolol Tartrate [Lopressor] 100 mg PO BID 05/25/22 lisinopriL [Prinivil] 10 mg PO DAILY 05/25/22 Thiamine [Vitamin B-1] 100 mg PO DAILY #14 tab 09/24/22 levETIRAcetam [Keppra] 250 mg PO Q12HR 05/06/23 diazePAM [Valium] 5 mg PO Q24H PRN 1 Days #2 tab 07/17/23 Controlled Substance Measures - Controlled Substance Measures Is patient prescribed a controlled substance at discharge?: No
== END ==
LOC: PNWHC3 08:59
PROVIDERS: ATTEND Specialist
DX: M96.1 Postlaminectomy syndrome, not elsewhere classified (principal); M54.50 Low back pain, unspecified; F17.200 Nicotine dependence, unspecified, uncomplicated
CPT/HCPCS: 99211

== ENCOUNTER 2023-11-28 07:01 | Day surgery (SDC) | payer OTHER, MEDICAID ==
[2023-11-27 09:55] VITALS: BMI 15.6
[2023-11-28] MEDS ORDERED: LACTATED RINGERS 1,000 ML IV SCH (07:22)
[2023-11-28 08:20] VITALS: TEMP 97.1
[2023-11-28] MEDS ORDERED: ROPIVACAINE 5MG/ML 20ML VIAL ONE (08:45)
[2023-11-28] MEDS ORDERED: DEXAMETHASONE SOD PHOSPHATE 10 MG/ML 1 ML VIAL ONE (08:45)
[2023-11-28] MEDS ORDERED: IOPAMIDOL M300 15ML VIAL ONE (08:45)
[2023-11-28 09:28] VITALS: RESP 18
[2023-11-28 09:59] VITALS: BP 130/86; PULSE 64
--- NOTE | 2023-11-28 11:25 | P.PCN ---
Description of Procedure: PREOPERATIVE DIAGNOSIS: 1-Lumbar radiculopathy . 2-lumbar degenerative disc disease. 3-lumbar spondylosis with lumbar facet arthropathy without myelopathy POSTOPERATIVE DIAGNOSIS: 1-lumbar radiculopathy. 2-lumbar degenerative disc disease. 3-lumbar spondylosis with facet arthropathy without myelopathy PROCEDURE 1. Transforaminal epidural steroid injection under fluoroscopic guidance at BILATERAL L4-5 level. (Fluoroscopy images stored on file in the radiology Department ) 2. Lumbar epidurogram . ANESTHESIA: Local with 1% lidocaine 5 ml. subcutaneously. Continuous pulse ox, EKG, blood pressure and verbal communication was maintained with the patient. EBL: Minimal PROCEDURE INDICATION: The patient with low back pain and radiculopathy symptoms unresponsive to conservative treatment. The patient was seen and identified in the preoperative area. Risks, benefits, complications, and alternatives were discussed with the patient. The patient agreed to proceed with the procedure and signed the consent. IV was started, and vital signs were stable. PROCEDURE DESCRIPTION / TECHNIQUE: After getting consent, patient was taken to the OR and time out was completed. The patient was placed in the prone position on procedure table and a pillow was placed under the abdomen to reduce lumbar lordosis. The lumbosacral area was prepped and draped in the usual sterile fashion. Critical pause was taken. After injecting 5 mL of plain 1% lidocaine subcutaneously, under oblique view of the fluoroscope, a 22-gauge spinal needle was introduced under the tunnel view of the fluoroscope on the RIGHT side and the needle was advanced so that the tip of the needle was at the posterior inferior quadrant of the intervertebral foramen at the lateral view of the fluoroscope and in the lateral third of the facet column in the AP view of the fluoroscope. Negative CSF, negative blood, n egative paresthesia. After needle position confirmation by AP and cross table lateral view, 3 mL of Isovue-M 200 contrast was injected under continuous fluoroscope. No contrast was noted in the intrathecal or intravascular space. The epidurogram was noted. Again after repeated negative aspiration 2.5 mL solution was injected which consists 1.5 mL of normal saline mixed with 1 mL of 15 mg dexamethasone. Needle was removed . Same procedure was repeated at the RIGHT side at same level , using contrast under continuous fluoroscopy and using same amount of dexamethasone. At the end of the procedure, skin was cleansed, and bandages were applied. DISPOSITION / PLANS: No complication. The patient tolerated the procedure well. The patient was placed in a supine position and transferred to the recovery area in a stable condition for observation. There was no evidence of lower extremity motor or sensory deficit after the procedure. Patient was discharged from the recovery room after meeting discharge criteria. Home discharge instructions were given to the patient by the staff. The patient was reexamined prior to discharge.
--- NOTE | 2023-11-28 12:06 | FL ---
EXAMINATION TYPE: FL guided pain mgmt statistic Intraoperative/procedural fluoroscopic services were provided. Total fluoroscopy time is 115 seconds with a total of 4 submitted images to PACS. Please se e the operative/procedural note for further details. DAP: [id number] mGym2
== END 2023-11-28 09:48 | disposition home or self-care (01) ==
LOC: ORPAIN 07:01
PROVIDERS: ATTEND Pain Medicine Interventional Pain Medicine
DX: M51.16 Intervertebral disc disorders with radiculopathy, lumbar region (principal); M47.26 Other spondylosis with radiculopathy, lumbar region
CPT/HCPCS: 64483; J1100; Q9967; J2795

== ENCOUNTER → 2024-01-23 | Outpatient (CLI) | payer MEDICAID, OTHER ==
[2024-01-23 10:11] VITALS: BP 113/78; PULSE 64; RESP 16; TEMP 97.1
--- NOTE | 2024-01-23 15:03 | P.PAINPG ---
PQRS Measure Charge Sheet Comment: HISTORY OF PRESENT ILLNESS: A 68 yr old male w at side presents today w severe and chronic LBP x 35 yrs secondary to post R L4-L5 sacha laminectomy (2013) syndrome for evaluation s/p L TFESI L4-L5 #1. Pt states he experienced 80 % pain relief x 5 wks s/p procedure. Pt states pain level is at 8 /10 in intensity, constant, localized in the mid to lower lumbar spine, predominantly axial, achy in character w shooting pain down the BLEs. Pain is provoked by PT years ago, walking/sitting/ standing in one p osition for periods of 10 min or more. Pain is alleviated by physician guided home stretching regimen every morning x 1 yr, medications, topicals, heat, laying supine, repositioning and rest. Oswestry axial pain score of 25. Interventional procedures include Caudal MORIS w Lysis x3, BL RFA L3-L5 (January 2022, Nov 2022), BL iliolumbar x1, L TFESI L4-L5 x1 Medications include Aleve, Lidoderm, Neurontin, Tyl, Cannabis use REVIEW OF ORGAN SYSTEMS: CONSTITUTIONAL: No fevers or chills. No recent weight loss. NEUROLOGICAL: + numbness and tingling along the distal extremities. No seizure disorders or headaches. MUSCULOSKELETAL: + pain PSYCHIATRIC: Denies current depression or suicidal thoughts. Physical Examinations : Constitutional : Cooperative , not in acute distress . Neurologic : Cranial nerve II to XII intact. No focal neurological deficits. Psychiatric : alert & oriented x 3. Matching mood & appropriate affect. Judgment & insight intact. Musculoskeletal : Cervical Spine Motor strength in the deltoid and biceps: Normal right side. Normal Left side Motor strength biceps and the wrist extensors: Normal right side . Normal left side Motor strength in the triceps muscle: Normal right side. Normal left side Deep tendon reflexes: Normal at the biceps. Normal at Brachioradialis. Normal at triceps Vertebral body tenderness to deep palpation over Cervical facet loading test: positive bilaterally Spurling test: positive bilaterally Neck distraction test: positive bilaterally Julieta sign: positive bilaterally Lumbar spine Motor strength lower extremities ,thigh and legs 5/5 Right side , 5/5 Left side Deep tendon reflexes : Normal Knee Jerk. Normal Ankle Jerk Vertebral body tenderness over L4 Lumbar facet Loading Test: positive Right / positive Left Range of motion of the lumbar spine Flexion 30 degrees, extension 10 degrees Straight Leg Raise test: Left/ Right positive at <35 degrees Tano test: positive right / positive left. Severe tenderness over the Sacroiliac joint on the Right / Left sides Gaenslen test: positive bilaterally Seated flexion test: positive bilaterally. Sacral spine : Severe tenderness over the Sacroiliac joint: right side / left side Range of motion: Flexion of the lumbar spine <60 degrees Range of motion: Extension of the lumbar spine <20 degrees Gaenslen's Test positive Mohit's Test positive Tano test: positive right side / left side Thigh Thrust Test Sacral Thrust Test Imaging: MRI noncontrast of the lumbar spine from 10/09/23 reviewed Assessment/ Plan : Lumbar pain secondary to post laminectomy syndrome Recommendation of L TFESI L4-L5 #2. May need a series of injections for optimal pain relief. Risks, benefits of procedure discussed and pt verbalized understanding. Protocol for discontinuation/ continuation of medications autumn procedure discussed. All questions answered. I have spent greater than 30 minutes on patient care today. Dr Calix was available by phone for the evaluation of this patient. The time was used to review the medical records including relevant urine studies and Prescription history (MAPs), review of the available imaging, evaluation and examination of the patient, coordination of care with the medical staff and if applicable referring physicians, as well as creation of the medical record PQRS Narrative: Smoking Status Current every day smoker Hx Alcohol Use (MH) Yes: rare; former daily use Home Medications: Ambulatory Orders Gabapentin [Neurontin] 600 mg PO TID 02/18/20 Multivitamins, Thera [Multivitamin (formulary)] 1 tab PO DAILY 08/22/21 Folic Acid 1 mg PO DAILY 01/02/22 Atorvastatin [Lipitor] 10 mg PO HS 03/06/22 Lidocaine [Lidoderm 5% Patch] 1 patch TRANSDERM DAILY 03/06/22 Sodium Chloride Tab 1 gm PO BID 03/06/22 Metoprolol Tartrate [Lopressor] 100 mg PO BID 05/25/22 lisinopriL [Prinivil] 10 mg PO DAILY 05/25/22 Thiamine [Vitamin B-1] 100 mg PO DAILY #14 tab 09/24/22 levETIRAcetam [Keppra] 250 mg PO Q12HR 05/06/23 Aspirin 81 mg PO DAILY 11/27/23 rOPINIRole HCL [Requip] 0.25 mg PO HS 11/27/23 Controlled Substance Measures - Controlled Substance Measures Is patient prescribed a controlled substance at discharge?: No
== END ==
LOC: PNWHC3 08:20
PROVIDERS: ATTEND Specialist
DX: M96.1 Postlaminectomy syndrome, not elsewhere classified (principal); M54.50 Low back pain, unspecified; G89.29 Other chronic pain; F17.200 Nicotine dependence, unspecified, uncomplicated
CPT/HCPCS: 99211

== ENCOUNTER 2024-02-04 07:19 | Day surgery (SDC) | payer OTHER ==
[2024-02-03 09:47] VITALS: BMI 17.7
[~2024-02-04 07:19] MED LIST changes: -ROPIVACAINE 5MG/ML 20ML VIAL ONE; -methylPREDNISolone ACETATE 40 MG/ML 1 ML VIAL ONE
[2024-02-04 08:13] VITALS: RESP 16; TEMP 97.2
[2024-02-04] MEDS ORDERED: DEXAMETHASONE SOD PHOSPHATE 10 MG/ML 1 ML VIAL ONE (08:29)
[2024-02-04] MEDS ORDERED: IOPAMIDOL M200 10 ML VIAL ONE (08:29)
--- NOTE | 2024-02-04 08:41 | P.PCN ---
Date of Procedure: 02/04/24 Surgeon: Kori Bernard Pathology: none sent Condition: stable Disposition: PACU Description of Procedure: REOPERATIVE DIAGNOSIS: Lumbar postlaminectomy pain syndrome POSTOPERATIVE DIAGNOSIS: Lumbar postlaminectomy pain syndrome PROCEDURE 1. Transforaminal epidural steroid injection under fluoroscopic guidance on the left L4 5 level 2. Lumbar epidurogram. SURGEON: Kori Bernard MD ANESTHESIA: Local only with 1% lidocaine EBL: Minimal PROCEDURE INDICATION: The patient with low back pain and radiculopathy symptoms unresponsive to conservative treatment. PROCEDURE DESCRIPTION / TECHNIQUE: The patient was seen and identified in the preoperative area. Risks, benefits, complications, and alternatives were discussed with the patient. The patient agreed to proceed with the procedure and signed the consent. IV was started, and vital signs were stable. Patient was taken to the OR and time out was completed. The patient was placed in the prone position on procedure table and a pillow was placed under the abdomen to reduce lumbar lordosis. The lumbosacral area was prepped and draped in the usual sterile fashion. Critical pause was taken. Vital signs were closely monitored during the procedure. Conscious sedation was used during the procedure to decrease patients anxiety. The vertebral body of the lumbar vertebra L4 was squared off by tilting the C-arm cephalad then the C-arm was tilted to the left oblique position and the target point was at the 6 o'clock position of the pedicle of L4 then skin and deeper tissues were localized with 1% lidocaine. Subsequently, a 22-gauge 3.5-inch spinal needle was advanced under a tunneled view fluoroscopic guidance just underneath the chin of the Donovan dog at the . Under lateral fluoroscopy, the needle was then advanced to the middle of the upper one third of the foramen between( L4,L5). After negative aspiration of CSF and blood and with no paresthesias, 1 mL of omnipaque contrast dye was injected excellent epidurogram and outlining of the L4 nerve root was identified. Subsequently, 2 mL of block solution containing 10 mg of Decadron and 1 mL of Lidocaine 1% PF was injected. Needle was removed intact . At the end of the procedure, skin was cleansed, and bandages were applied. COMPLICATIONS: None DISPOSITION / PLANS: The patient was placed in a supine position and transferred to the recovery area in a stable condition for observation. There was no evidence of lower extremity motor or sensory deficit after the procedure. Patient was discharged from the recovery room after meeting discharge criteria. Home discharge instructions were given to the patient by the staff.
[2024-02-04 09:02] VITALS: BP 124/83; PULSE 75
--- NOTE | 2024-02-04 11:48 | FL ---
EXAMINATION TYPE: FL guided pain mgmt statistic DATE OF EXAM: 02/04/2024 HISTORY: Fluoroscopy time Total dose area product (DAP) in uGy*m?, mGy*cm? (or similar): 0.48012 IMPRESSION: 1. Fluoroscopy time.
== END 2024-02-04 09:01 | disposition home or self-care (01) ==
LOC: ORPAIN 07:19
PROVIDERS: ATTEND Anesthesiology
DX: M96.1 Postlaminectomy syndrome, not elsewhere classified (principal); M54.16 Radiculopathy, lumbar region
CPT/HCPCS: 64483; J1100; J2001; Q9966

== ENCOUNTER → 2024-03-16 | Outpatient (CLI) | payer OTHER ==
[2024-03-16 08:32] VITALS: BP 121/73; PULSE 66; RESP 16; TEMP 98.4
--- NOTE | 2024-03-16 14:56 | P.PAINPG ---
PQRS Measure Charge Sheet Comment: HISTORY OF PRESENT ILLNESS: A 68 yr old male w at side presents today w severe and chronic LBP x 35 yrs secondary to post R L4-L5 sacha laminectomy (2013) syndrome for evaluation s/p L TFESI L4-L5 #2. Pt states he experienced 65 % pain relief x 3 wks s/p procedure. Pt states pain level is at 7 /10 in intensity, constant, localized in the mid to lower lumbar spine, predominantly axial, achy in character w shooting pain down the BLEs. Pain is provoked by PT years ago, walking/sitting/ standing in one p osition for periods of 10 min or more. Pain is alleviated by physician guided home stretching regimen every morning x 1 yr, medications, topicals, heat, laying supine, repositioning and rest. Oswestry axial pain score of 24. Interventional procedures include Caudal MORIS w Lysis x3, BL RFA L3-L5 (January 2022, Nov 2022), BL iliolumbar x1, L TFESI L4-L5 x2 Medications include Aleve, Lidoderm, Neurontin, Tyl, Cannabis use REVIEW OF ORGAN SYSTEMS: CONSTITUTIONAL: No fevers or chills. No recent weight loss. NEUROLOGICAL: + numbness and tingling along the distal extremities. No seizure disorders or headaches. MUSCULOSKELETAL: + pain PSYCHIATRIC: Denies current depression or suicidal thoughts. Physical Examinations : Constitutional : Cooperative , not in acute distress . Neurologic : Cranial nerve II to XII intact. No focal neurological deficits. Psychiatric : alert & oriented x 3. Matching mood & appropriate affect. Judgment & insight intact. Musculoskeletal : Cervical Spine Motor strength in the deltoid and biceps: Normal right side. Normal Left side Motor strength biceps and the wrist extensors: Normal right side . Normal left side Motor strength in the triceps muscle: Normal right side. Normal left side Deep tendon reflexes: Normal at the biceps. Normal at Brachioradialis. Normal at triceps Vertebral body tenderness to deep palpation over Cervical facet loading test: positive bilaterally Spurling test: positive bilaterally Neck distraction test: positive bilaterally Julieta sign: positive bilaterally Lumbar spine Motor strength lower extremities ,thigh and legs 5/5 Right side , 5/5 Left side Deep tendon reflexes : Normal Knee Jerk. Normal Ankle Jerk Vertebral body tenderness over L4 Lumbar facet Loading Test: positive Right / positive Left L4-L5, L5-S1 Range of motion of the lumbar spine Flexion 30 degrees, extension 10 degrees Straight Leg Raise test: Left/ Right positive at <35 degrees Tano test: positive right / positive left. Severe tenderness over the Sacroiliac joint on the Right / Left sides Gaenslen test: positive bilaterally Seated flexion test: positive bilaterally. Sacral spine : Severe tenderness over the Sacroiliac joint: right side / left side Range of motion: Flexion of the lumbar spine <60 degrees Range of motion: Extension of the lumbar spine <20 degrees Gaenslen's Test positive Mohit's Test positive Tano test: positive right side / left side Thigh Thrust Test Sacral Thrust Test Imaging: MRI noncontrast of the lumbar spine from 10/09/23 reviewed Assessment/ Plan : Lumbar pain secondary to DDD, spondylosis and facet arthropathy without myelopathy Recommendation of BL MBB L4-L5, L5-S1 #1. May need a series of injections, up until RFA, for optimal pain relief. Risks, benefits of procedure discussed and pt verbalized understanding. Protocol for discontinuation/ continuation of medications autumn procedure discussed. Minimal anesthesia including Fentanyl and Versed if clinically indicated. All questions answered. I have spent greater than 30 minutes on patient care today. Dr Calix was available by phone for the evaluation of this patient. The time was used to review the medical records including relevant urine studies and Prescription history (MAPs), review of the available imaging, evaluation and examination of the patient, coordination of care with the medical staff and if applicable referring physicians, as well as creation of the medical record PQRS Narrative: Smoking Status Current every day smoker Hx Alcohol Use (MH) Yes: rare; former daily use Home Medications: Ambulatory Orders Gabapentin [Neurontin] 600 mg PO TID 02/18/20 Multivitamins, Thera [Multivitamin (formulary)] 1 tab PO QAM 08/22/21 Folic Acid 1 mg PO QAM 01/02/22 Atorvastatin [Lipitor] 10 mg PO HS 03/06/22 Lidocaine [Lidoderm 5% Patch] 1 patch TRANSDERM DAILY 03/06/22 Sodium Chloride Tab 1 gm PO BID 03/06/22 Metoprolol Tartrate [Lopressor] 100 mg PO BID 05/25/22 lisinopriL [Prinivil] 10 mg PO HS 05/25/22 levETIRAcetam [Keppra] 250 mg PO Q12HR 05/06/23 Aspirin 81 mg PO HS 11/27/23 rOPINIRole HCL [Requip] 0.25 mg PO HS 11/27/23 Thiamine [Vitamin B-1] 100 mg PO QAM 02/03/24 Vit D+Magnesium (Unknown Dose) 1 dose PO QAM 02/03/24 Controlled Substance Measures - Controlled Substance Measures Is patient prescribed a controlled substance at discharge?: No
== END ==
LOC: PNWHC3 08:16
PROVIDERS: ATTEND Specialist
DX: M51.37 Other intervertebral disc degeneration, lumbosacral region (principal); M47.817 Spondylosis without myelopathy or radiculopathy, lumbosacral region; F17.200 Nicotine dependence, unspecified, uncomplicated
CPT/HCPCS: 99211

== ENCOUNTER 2024-03-26 08:57 | Day surgery (SDC) | payer OTHER ==
[2024-03-25 10:33] VITALS: BMI 18.1
[2024-03-26 09:24] VITALS: TEMP 96.9
[2024-03-26] MEDS: IV FLUID CONTINUATION 1,000 ML IV ONE ×2 (09:24→11:30)
[2024-03-26] MEDS: LACTATED RINGERS 1,000 ML IV SCH (09:37)
[2024-03-26] MEDS ORDERED: fentaNYL (PF) 50 MCG/ML 2 ML AMP ONE (10:53)
[2024-03-26] MEDS ORDERED: ROPIVACAINE 5MG/ML 20ML VIAL ONE (10:53)
[2024-03-26] MEDS ORDERED: MIDAZOLAM 2 MG/2 ML VIAL ONE (10:53)
--- NOTE | 2024-03-26 11:36 | P.PCN ---
Description of Procedure: Preprocedure diagnosis. 1. Lumbar spondylosis with facet joint arthropathy without myelopathy. 2. Lumbar degenerative disc disease. Postprocedure diagnosis. As above. Procedure done. Bilateral diagnostic block with local anesthetics at L3, L4, L5 medial branch to target the facet joint L4- 5 and L5-S1 with fluoroscopic guidan ce (fluoroscopy images are available in the radiology department) . Anesthesia. Moderate sedation with intravenous Versed 2 mg and fentanyl 100mcg and local infiltration with local anesthetics. In OR, continuous pulse ox, EKG, blood pressure and verbal communication was maintained. Blood loss. Minimal. Indication. The patient has low back pain secondary to lumbar facet joint arthropathy. Discussed the procedure and alternative and complications which includes infection, bleeding, nerve damage, paralysis ,aggravation of pain. Patient understands and all questions were answered. Patient iunderstands that if any pain relief occurs it will last for a few hours to a few days maximum. Procedure description. After getting consent patient was taken in the OR in prone position. Back prepped with chlorhexidine and draped in sterile fashion. After injecting 5 mL of plain 1% lidocaine subcutaneously, a 22-gauge spinal needle was introduced under tunnel vision of the fluoroscope at the junction of the superior articular process with RIGHT ala of the sacrum. With slight oblique fluoroscope, after injecting 5 mL of plain 1% lidocaine subcutaneously, a 22-gauge spinal needle was introduced under tunnel vision of the fluoroscope at the junction of the superior articular process with RIGHT L5 transverse process, junction of the superior articular process with the RIGHT L4 transverse process. Negative CSF, negative blood, negative paresthesia. After needle position confirmation by AP and crosstable lateral view, after negative aspiration, half milliliters of solution were injected at each point. Total 1- 1/2 mL of solution was injected on the right side which consists of 0.5% ropivacaine. In exactly same way, LEFT sided injections were done at the following 3 points. Junction of the superior articular process with left ala of the sacrum, junction of the superior articular process with the left L5 transverse process, junction of the superior articular process with left L4 transverse process using 0.5 mL of solution at each point. Total 1-1/2 mL of solution was injected on the left side which consists of 0.5% ropivacaine . Spinal needles were taken out and bandages were applied. Disposition. Patient tolerated the procedure well. No complication. Discharged home in stable condition
--- NOTE | 2024-03-26 11:53 | FL ---
Fluoroscopy History: FACET BLOCK EDWIN LUMB LUMBAR FACET BLOCK FL TIME: 85sec DAP: .48557
[2024-03-26 12:02] VITALS: BP 112/70; PULSE 58; RESP 16
== END 2024-03-26 12:03 | disposition home or self-care (01) ==
LOC: ORPAIN 08:57
PROVIDERS: ATTEND Pain Medicine Interventional Pain Medicine
DX: M47.816 Spondylosis without myelopathy or radiculopathy, lumbar region (principal); M51.36 Other intervertebral disc degeneration, lumbar region; Z79.82 Long term (current) use of aspirin
CPT/HCPCS: 64493; 64494 ×2; 99152; 99153; J2250; J3010; J2795

== ENCOUNTER → 2024-04-16 | Outpatient (CLI) | payer OTHER ==
[2024-04-16 08:35] VITALS: BP 122/66; PULSE 53; RESP 16
--- NOTE | 2024-04-16 14:11 | P.PAINPG ---
Objective - Vital Signs Vital signs: Vital Signs Temp Pulse 53 L 04/16/24 08:32 Resp 16 04/16/24 08:32 BP 122/66 04/16/24 08:32 Pulse Ox 98 04/16/24 08:32 FiO2 Intake & Output 04/15/24 04/16/24 04/16/24 18:59 06:59 18:59 Weight 49.895 kg PQRS Measure Charge Sheet Mode of Arrival: Ambulatory Comment: HISTORY OF PRESENT ILLNESS: A 68 yr old male w at side presents today w severe and chronic LBP x 35 yrs secondary to post R L4-L5 sacha laminectomy (2013) syndrome for evaluation s/p L TFESI L4-L5 #2. Pt states he experienced 100 % pain relief x 24 hrs s/p procedure. Pt states pain level is at 7 /10 in intensity, constant, localized in the mid to lower lumbar spine, predominantly axial, achy in character w shooting pain down the BLEs. Pain is provoked by PT years ago, walking/sitting/ standing in one position for periods of 10 min or more. Pain is alleviated by physician guided home stretching regimen every morning x 1 yr, medications, topicals, heat, laying supine, repositioning and rest. Oswestry axial pain score of 24. Interventional procedures include Caudal MORIS w Lysis x3, BL RFA L3-L5 (January 2022, Nov 2022), BL iliolumbar x1, L TFESI L4-L5 x2, BL MBB L3-L5 x1 Medications include Aleve, Lidoderm, Neurontin, Tyl, Cannabis use REVIEW OF ORGAN SYSTEMS: CONSTITUTIONAL: No fevers or chills. No recent weight loss. NEUROLOGICAL: + numbness and tingling along the distal extremities. No seizure disorders or headaches. MUSCULOSKELETAL: + pain PSYCHIATRIC: Denies current depression or suicidal thoughts. Physical Examinations : Constitutional : Cooperative , not in acute distress . Neurologic : Cranial nerve II to XII intact. No focal neurological deficits. Psychiatric : alert & oriented x 3. Matching mood & appropriate affect. Judgment & insight intact. Musculoskeletal : Cervical Spine Motor strength in the deltoid and biceps: Normal right side. Normal Left side Motor strength biceps and the wrist extensors: Normal right side . Normal left side Motor strength in the triceps muscle: Normal right side. Normal left side Deep tendon reflexes: Normal at the biceps. Normal at Brachioradialis. Normal at triceps Vertebral body tenderness to deep palpation over Cervical facet loading test: positive bilaterally Spurling test: positive bilaterally Neck distraction test: positive bilaterally Julieta sign: positive bilaterally Lumbar spine Motor strength lower extremities ,thigh and legs 5/5 Right side , 5/5 Left side Deep tendon reflexes : Normal Knee Jerk. Normal Ankle Jerk Vertebral body tenderness over L4 Lumbar facet Loading Test: positive Right / positive Left L4-L5, L5-S1 Range of motion of the lumbar spine Flexion 30 degrees, extension 10 degrees Straight Leg Raise test: Left/ Right positive at <35 degrees Tano test: positive right / positive left. Severe tenderness over the Sacroiliac joint on the Right / Left sides Gaenslen test: positive bilaterally Seated flexion test: positive bilaterally. Sacral spine : Severe tenderness over the Sacroiliac joint: right side / left side Range of motion: Flexion of the lumbar spine <60 degrees Range of motion: Extension of the lumbar spine <20 degrees Gaenslen's Test positive Mohit's Test positive Tano test: positive right side / left side Thigh Thrust Test Sacral Thrust Test Imaging: MRI noncontrast of the lumbar spine from 10/09/23 reviewed Assessment/ Plan : Lumbar pain secondary to DDD, spondylosis and facet arthropathy without myelopathy Recommendation of BL MBB L4-L5, L5-S1 #2. May need a series of injections, up until RFA, for optimal pain relief. Risks, benefits of procedure discussed and pt verbalized understanding. Protocol for discontinuation/ continuation of medications autumn procedure discussed. Minimal anesthesia including Fentanyl and Versed if clinically indicated. All questions answered. I have spent greater than 30 minutes on patient care today. Dr Calix was available by phone for the evaluation of this patient. The time was used to review the medical records including relevant urine studies and Prescription history (MAPs), review of the available imaging, evaluation and examination of the patient, coordination of care with the medical staff and if applicable referring physicians, as well as creation of the medical record PQRS Narrative: Smoking Status Current every day smoker Blood Pressure 122/66 Scale Used Numeric (1 - 10) Hx Alcohol Use (MH) Yes: rare; former daily use Home Medications: Ambulatory Orders Gabapentin [Neurontin] 600 mg PO BID 02/18/20 Multivitamins, Thera [Multivitamin (formulary)] 1 tab PO QAM 08/22/21 Folic Acid 1 mg PO QAM 01/02/22 Atorvastatin [Lipitor] 10 mg PO HS 03/06/22 Lidocaine [Lidoderm 5% Patch] 1 patch TRANSDERM DAILY 03/06/22 Sodium Chloride Tab 1 gm PO BID 03/06/22 Metoprolol Tartrate [Lopressor] 100 mg PO BID 05/25/22 lisinopriL [Prinivil] 10 mg PO HS 05/25/22 levETIRAcetam [Keppra] 250 mg PO Q12HR 05/06/23 Aspirin 81 mg PO HS 11/27/23 rOPINIRole HCL [Requip] 0.25 mg PO HS 11/27/23 Thiamine [Vitamin B-1] 100 mg PO QAM 02/03/24 Vit D+Magnesium (Unknown Dose) 1 dose PO QAM 02/03/24 Controlled Substance Measures - Controlled Substance Measures Is patient prescribed a controlled substance at discharge?: No
== END ==
LOC: PNWHC3 08:18
PROVIDERS: ATTEND Specialist
DX: M51.37 Other intervertebral disc degeneration, lumbosacral region (principal); M47.817 Spondylosis without myelopathy or radiculopathy, lumbosacral region; F17.200 Nicotine dependence, unspecified, uncomplicated
CPT/HCPCS: 99211

== ENCOUNTER → 2024-04-24 | Day surgery (SDC) | payer OTHER ==
[~2024-04-24] MED LIST changes: -LACTATED RINGERS 1,000 ML IV SCH; +MIDAZOLAM 2 MG/2 ML VIAL ONE; +ROPIVACAINE 5MG/ML 20ML VIAL ONE
[2024-04-24] MEDS: IV FLUID CONTINUATION 1,000 ML IV ONE ×2 (07:15→08:35)
[2024-04-24 07:20] VITALS: RESP 16; TEMP 97
[2024-04-24] MEDS: LACTATED RINGERS 1,000 ML IV SCH (07:42)
--- NOTE | 2024-04-24 08:29 | P.PCN ---
Date of Procedure: 04/24/24 Surgeon: Kori Bernard Pathology: none sent Condition: stable Disposition: PACU Description of Procedure: PREOPERATIVE DIAGNOSIS : 1- Lumbar spondylosis with Facet Arthropathy without myelopathy . 2- Lumber degenerative disc disease POSTOPERATIVE DIAGNOSIS: 1- Lumbar spondylosis with Facet Arthropathy without myelopathy . 2- Lumber degenerative disc disease PROCEDURE: Diagnostic bilateral L4 -5 , and L5-S1 medial branch block under fluoroscopy Physician: Kori Bernard MD ANESTHESIA: Local with 1% lidocaine;and IV moderate conscious sedation with Versed and fentanyl Sedation time:[id number] EBL: Negligible COMPLICATION: None. PROCEDURE INDICATION: Chronic low back pain secondary to Facet arthropathy unresponsive to conservative treatment. PROCEDURE DESCRIPTION: the patient was seen and identified in the preop holding area , risks and benefits and possible complications of the procedure and alternatives were discussed with the patient, and the patient agreed to proceed with the procedure and signed the consent. IV was started and vital signs monitored during the procedure and fluoroscopy was used to maximize the benefit and accuracy of the needle placement, sedation was given to decrease patient anxiety, patient was taken to the procedure room and placed in prone position vital signs monitored. The patient was brought into the procedure room and placed in prone position. Skin was prepped with Chloraprep and draped in a sterile manner. Lidocaine 1% was used to numb the skin up at the target points that were chosen as follows: at the L5-S1 level which corresponds to the dorsal ramus of L5 the target points were at the superior medial aspect of the sacral ala on each side of the spine on the AP view of fluoroscopy, and for the L3 and L4 medial branches the target points were the connection between the transverse process and the superior articular process of L4 and L5 respectively on the oblique views of fluoroscopy. I used 22-gauge 3-1/2 inch Quincke spinal needles for this procedure and after contacting bone at the target points mentioned above I injected 1 mL of Ropivacaine 0.5% PF in each needle . Patient tolerated procedure well. At the end of the procedure the needles removed and a bandage applied after the skin was cleaned the cleaning solution. patient was then taken to the recovery room in stable condition and monitored in the recovery room for 20-30 minutes and discharged home in stable condition after discharge criteria met . Of note the patient has severe lumbar scoliosis. A copy of the needle placement picture was saved to the C-arm machine.
[2024-04-24 08:39] VITALS: PULSE 68
--- NOTE | 2024-04-24 08:44 | FL ---
Fluoroscopy History: EDWIN LUM FB Bilateral lumbar facets with Alosman. 13.4 sec fluoro time. .[id number] DAP. 5 images saved.
[2024-04-24 08:53] VITALS: BP 113/76
== END ==
LOC: ORPAIN 06:48
PROVIDERS: ATTEND Anesthesiology
DX: M47.816 Spondylosis without myelopathy or radiculopathy, lumbar region (principal); M51.36 Other intervertebral disc degeneration, lumbar region; G89.29 Other chronic pain; G40.909 Epilepsy, unspecified, not intractable, without status epilepticus
CPT/HCPCS: 64493; 64494 ×2; 99152; J2250; J2795

== ENCOUNTER → 2024-05-14 | Outpatient (CLI) | payer OTHER | LOC: PNWHC3 09:15 | PROVIDERS: ATTEND Specialist | DX: M47.816 Spondylosis without myelopathy or radiculopathy, lumbar region | CPT/HCPCS: 99211 ==

== ENCOUNTER → 2024-06-17 | Outpatient (CLI) | payer OTHER ==
[2024-06-17 09:38] VITALS: BP 147/93; PULSE 86; RESP 16; TEMP 97.1
--- NOTE | 2024-06-17 14:41 | P.PAINPG ---
PQRS Measure Charge Sheet Comment: HISTORY OF PRESENT ILLNESS: A 68 yr old male w at side presents today w severe and chronic LBP x 35 yrs secondary to post R L4-L5 sacha laminectomy (2013) syndrome for evaluation s/p BL RFA L4-L5/ L5-S1. Pt states he experienced 50 % pain relief s/p procedure. Pt states pain level is at 6 /10 in intensity, intermittent, localized in the mid to lower lumbar spine, predominantly axial, achy in character w shooting pain down the BLEs. Pain is provoked by PT years ago, walking/sitting/ standing in one position for periods of 10 min or more. Pain is alleviated by physician guided home stretching regimen every morning x 1 yr, medications, topicals, heat, laying supine, repositioning and rest. Interventional procedures include Caudal MORIS w Lysis x3, BL RFA L3-L5 (January 2022, Nov 2022, Apr 2024), BL iliolumbar x1, L TFESI L4-L5 x2, BL RFA L3-L5 (Apr 2024) Medications include Aleve, Lidoderm, Neurontin, Tyl, Cannabis use REVIEW OF ORGAN SYSTEMS: CONSTITUTIONAL: No fevers or chills. No recent weight loss. NEUROLOGICAL: + numbness and tingling along the distal extremities. No seizure disorders or headaches. MUSCULOSKELETAL: + pain PSYCHIATRIC: Denies current depression or suicidal thoughts. Physical Examinations : Constitutional : Cooperative , not in acute distress . Neurologic : Cranial nerve II to XII intact. No focal neurological deficits. Psychiatric : alert & oriented x 3. Matching mood & appropriate affect. Judgment & insight intact. Musculoskeletal : Cervical Spine Motor strength in the deltoid and biceps: Normal right side. Normal Left side Motor strength biceps and the wrist extensors: Normal right side . Normal left side Motor strength in the triceps muscle: Normal right side. Normal left side Deep tendon reflexes: Normal at the biceps. Normal at Brachioradialis. Normal at triceps Vertebral body tenderness to deep palpation over Cervical facet loading test: positive bilaterally Spurling test: positive bilaterally Neck distraction test: positive bilaterally Julieta sign: positive bilaterally Lumbar spine Motor strength lower extremities ,thigh and legs 5/5 Right side , 5/5 Left side Deep tendon reflexes : Normal Knee Jerk. Normal Ankle Jerk Vertebral body tenderness over L4 Lumbar facet Loading Test: positive Right / positive Left L4-L5, L5-S1 Range of motion of the lumbar spine Flexion 30 degrees, extension 10 degrees Straight Leg Raise test: Left/ Right positive at <35 degrees Tano test: positive right / positive left. Severe tenderness over the Sacroiliac joint on the Right / Left sides Gaenslen test: positive bilaterally Seated flexion test: positive bilaterally. Sacral spine : Severe tenderness over the Sacroiliac joint: right side / left side Range of motion: Flexion of the lumbar spine <60 degrees Range of motion: Extension of the lumbar spine <20 degrees Gaenslen's Test positive Mohit's Test positive Tano test: positive right side / left side Thigh Thrust Test Sacral Thrust Test Imaging: MRI non contrast of the lumbar spine from 10/09/23 reviewed Assessment/ Plan : LBP secondary to radiculopathy, spondylosis and facet arthropathy without myelopathy Recommendation of BL iliolumbar ligament injection #1. Risks, benefits of procedure discussed and pt verbalized understanding. Protocol for discontinuation/ continuation of medications autumn procedure discussed. All questions answered. I have spent greater than 30 minutes on patient care today. Dr Calix was available by phone for the evaluation of this patient. The time was used to review the medical records including relevant urine studies and Prescription history (MAPs), review of the available imaging, evaluation and examination of the patient, coordination of care with the medical staff and if applicable referring physicians, as well as creation of the medical record PQRS Narrative: Smoking Status Current every day smoker Hx Alcohol Use (MH) Yes: rare; former daily use Home Medications: Ambulatory Orders Gabapentin [Neurontin] 600 mg PO BID 02/18/20 Multivitamins, Thera [Multivitamin (formulary)] 1 tab PO QAM 08/22/21 Folic Acid 1 mg PO QAM 01/02/22 Atorvastatin [Lipitor] 10 mg PO HS 03/06/22 Lidocaine [Lidoderm 5% Patch] 1 patch TRANSDERM DAILY 03/06/22 Sodium Chloride Tab 1 gm PO BID 03/06/22 Metoprolol Tartrate [Lopressor] 100 mg PO BID 05/25/22 lisinopriL [Prinivil] 10 mg PO HS 05/25/22 levETIRAcetam [Keppra] 250 mg PO Q12HR 05/06/23 Aspirin 81 mg PO HS 11/27/23 rOPINIRole HCL [Requip] 0.25 mg PO HS 11/27/23 Thiamine [Vitamin B-1] 100 mg PO QAM 02/03/24 Vit D+Magnesium (Unknown Dose) 1 dose PO HS 02/03/24 Controlled Substance Measures - Controlled Substance Measures Is patient prescribed a controlled substance at discharge?: No
== END ==
LOC: PNWHC3 07:45
PROVIDERS: ATTEND Specialist
DX: M47.816 Spondylosis without myelopathy or radiculopathy, lumbar region
CPT/HCPCS: 99211

== ENCOUNTER 2024-07-28 07:55 | Day surgery (SDC) | payer OTHER ==
[2024-07-27 13:03] VITALS: BMI 17.7
[2024-07-28 08:28] VITALS: TEMP 97.2
[2024-07-28] MEDS: IV FLUID CONTINUATION 1,000 ML IV ONE (09:00)
[2024-07-28] MEDS ORDERED: ROPIVACAINE 5MG/ML 20ML VIAL ONE (09:57)
[2024-07-28] MEDS ORDERED: methylPREDNISolone ACETATE 80 MG/ML 1 ML VIAL ONE (09:57)
--- NOTE | 2024-07-28 10:18 | FL ---
EXAMINATION TYPE: FL guided pain mgmt statistic DATE OF EXAM: 07/28/2024 10:13 AM COMPARISON: Pre Operative Images if available both CT/MRI or plain film CLINICAL INDICATION: Male, 69 years old with history of INJ SNG TENDON SHEATH; TECHNIQUE: FL guided pain mgmt statistic, multiple fluoroscopic images provided for procedure. Total fluoroscopy time: 41 seconds Total submitted images to PACS: 2 DAP: 0.08311 mGym2 Gycm2 uGym2 cGycm2 or equivalent. FINDINGS: Fluoroscopic images during injection for pain management demonstrate multilevel degeneration changes throughout the spine. No evidence for fracture. No acute process identified. IMPRESSION: 1. No evidence for intraoperative complication. 2. Please see the operative/procedural note for further details. [facility], , 07/28/2024 10:15 AM
[2024-07-28 10:42] VITALS: BP 157/87; PULSE 80; RESP 20
--- NOTE | 2024-07-28 11:53 | P.PCN ---
Description of Procedure: Preprocedure diagnosis. Bilateral iliolumbar ligament pain. Postprocedure diagnosis. As above. Procedure done. BILATERAL iliolumbar ligament injection with local anesthetics and steroid under fluoroscopic guidance. Anesthesia. Local infiltration of local anesthetics. Blood loss. None. Indication. Discussed the procedure and possible complications which may include infection bleeding nerve damage paralyzes aggravation of pain all of which could be permanent. Patient understands and QUESTIONS were answered. Procedure note. After getting consent patient was taken to OR in prone position. Back prepped with chlorhexidine and draped in sterile fashion. After injecting 5 mL of plain 1% lidocaine subcutaneously a 22-gauge spinal needle was introduced under tunnel vision of the fluoroscope on the RIGHT iliolumbar ligament area just below the right L5 transverse process. The needle position confirmation by AP and crosstable lateral view of the fluoroscope, after negative aspiration, 2 mL solution was injected which consists of 1 mL of 40 mg Depo-Medrol mixed with 1 ml of 0.5% Ropivacaine. In exactly the same way LEFT iliolumbar ligament injected with same amount of solution. Kaplan were taken out. Disposition. Patient tolerated the procedure well. No complication. Discharged home in stable condition.
== END 2024-07-28 10:39 | disposition home or self-care (01) ==
LOC: ORPAIN 07:55
PROVIDERS: ATTEND Pain Medicine Interventional Pain Medicine
DX: M54.50 Low back pain, unspecified (principal)
CPT/HCPCS: 20550; J2795; J1010

== ENCOUNTER → 2024-08-10 | Outpatient (CLI) | payer OTHER ==
[2024-08-10 08:54] VITALS: BP 145/92; PULSE 98; RESP 16
--- NOTE | 2024-08-10 15:45 | P.PAINPG ---
PQRS Measure Charge Sheet Comment: HISTORY OF PRESENT ILLNESS: A 69 yr old male w at side presents today w severe and chronic LBP > 35 yrs secondary to post R L4-L5 sacha laminectomy (2013) syndrome for evaluation s/p BL RFA L4-L5/ L5-S1. Pt states he experienced 80 % pain relief s/p procedure. Pt states pain level is at 8 /10 in intensity, intermittent, localized in the mid to lower lumbar spine, predominantly axial, achy in character without shooting pain. Pain is provoked by PT years ago, walking/sitting/ standing in one position for periods of 10 min or more. Pain is alleviated by physician guided home stretching regimen every morning x 1 yr, medications, topicals, heat, laying supine, repositioning and rest. Interventional procedures include Caudal MORIS w Lysis x3, BL RFA L3-L5 (January 2022, Nov 2022, Apr 2024), BL iliolumbar x1, L TFESI L4-L5 x2, BL RFA L3-L5 (Apr 2024), BL iliolumbar ligament injection x1 (Jun 2024) Medications include Aleve, Lidoderm, Neurontin, Tyl, Cannabis use REVIEW OF ORGAN SYSTEMS: CONSTITUTIONAL: No fevers or chills. No recent weight loss. NEUROLOGICAL: + numbness and tingling along the distal extremities. No seizure disorders or headaches. MUSCULOSKELETAL: + pain PSYCHIATRIC: Denies current depression or suicidal thoughts. Physical Examinations : Constitutional : Cooperative , not in acute distress . Neurologic : Cranial nerve II to XII intact. No focal neurological deficits. Psychiatric : alert & oriented x 3. Matching mood & appropriate affect. Judgment & insight intact. Musculoskeletal : Cervical Spine Motor strength in the deltoid and biceps: Normal right side. Normal Left side Motor strength biceps and the wrist extensors: Normal right side . Normal left side Motor strength in the triceps muscle: Normal right side. Normal left side Deep tendon reflexes: Normal at the biceps. Normal at Brachioradialis. Normal at triceps Vertebral body tenderness to deep palpation over Cervical facet loading test: positive bilaterally Spurling test: positive bilaterally Neck distraction test: positive bi laterally Julieta sign: positive bilaterally Lumbar spine Motor strength lower extremities ,thigh and legs 5/5 Right side , 5/5 Left side Deep tendon reflexes : Normal Knee Jerk. Normal Ankle Jerk Vertebral body tenderness over L5 Lumbar facet Loading Test: positive Right / positive Left L4-L5, L5-S1 Range of motion of the lumbar spine Flexion 30 degrees, extension 10 degrees Straight Leg Raise test: Left/ Right positive at <35 degrees Tano test: positive right / positive left. Severe tenderness over the Sacroiliac j oint on the Right / Left sides Gaenslen test: positive bilaterally Seated flexion test: positive bilaterally. Sacral spine : Severe tenderness over the Sacroiliac joint: right side / left side Range of motion: Flexion of the lumbar spine <60 degrees Range of motion: Extension of the lumbar spine <20 degrees Gaenslen's Test positive Moiht's Test positive Tano test: positive right side / left side Thigh Thrust Test Sacral Thrust Test Imaging: MRI non contrast of the lumbar spine from 10/09/23 reviewed Assessment/ Plan : LBP secondary to R L4-L5 sacha-laminectomy Recommendation of BL iliolumbar ligament #2. Risks, benefits of procedure discussed and pt verbalized understanding. Protocol for discontinuation/ continuation of medications autumn procedure discussed. All questions answered. I have spent greater than 30 minutes on patient care today. Dr Calix was available by phone for the evaluation of this patient. The time was used to review the medical records including relevant urine studies and Prescription history (MAPs), review of the available imaging, evaluation and examination of the patient, coordination of care with the medical staff and if applicable referring physicians, as well as creation of the medical record - Pain Location Lower Back Pharmacological Interventions: Scheduled Medication, Topical Medication PQRS Narrative: Smoking Status Current every day smoker Hx Alcohol Use (MH) Yes: rare; former daily use Home Medications: Ambulatory Orders Gabapentin [Neurontin] 600 mg PO BID 02/18/20 Multivitamins, Thera [Multivitamin (formulary)] 1 tab PO QAM 08/22/21 Folic Acid 1 mg PO QAM 01/02/22 Atorvastatin [Lipitor] 10 mg PO HS 03/06/22 Lidocaine [Lidoderm 5% Patch] 1 patch TRANSDERM DAILY PRN 03/06/22 Sodium Chloride Tab 1 gm PO BID 03/06/22 Metoprolol Tartrate [Lopressor] 100 mg PO BID 05/25/22 lisinopriL [Prinivil] 10 mg PO HS 05/25/22 levETIRAcetam [Keppra] 250 mg PO Q12HR 05/06/23 Aspirin 81 mg PO HS 11/27/23 rOPINIRole HCL [Requip] 0.25 mg PO HS PRN 11/27/23 Thiamine [Vitamin B-1] 100 mg PO QAM 02/03/24 diazePAM [Valium] 5 mg PO DAILY PRN 1 Days #2 tab 08/10/24 Controlled Substance Measures - Controlled Substance Measures Is patient prescribed a controlled substance at discharge?: Yes When asked, does pt state using other controlled substances?: No If prescribed controlled substance>3 days was MAPS reviewed?: Prescribed <3 Days
== END ==
LOC: PNWHC3 08:37
PROVIDERS: ATTEND Specialist
DX: M54.50 Low back pain, unspecified (principal); F17.200 Nicotine dependence, unspecified, uncomplicated; Z98.890 Other specified postprocedural states
CPT/HCPCS: 99211

== ENCOUNTER → 2024-09-08 | Day surgery (SDC) | payer OTHER ==
[~2024-09-08] MED LIST changes: +LACTATED RINGERS 1,000 ML IV SCH; -MIDAZOLAM 2 MG/2 ML VIAL ONE; +methylPREDNISolone ACETATE 80 MG/ML 1 ML VIAL ONE
[2024-09-08 10:30] VITALS: RESP 16; TEMP 97.8
--- NOTE | 2024-09-08 11:50 | P.PCN ---
Description of Procedure: Preprocedure diagnosis. Bilateral iliolumbar ligament pain. Postprocedure diagnosis. As above. Procedure done. BILATERAL iliolumbar ligament injection with local anesthetics and steroid under fluoroscopic guidance. Anesthesia. Local infiltration of local anesthetics. Blood loss. None. Indication. Discussed the procedure and possible complications which may include infection bleeding nerve damage paralyzes aggravation of pain all of which could be permanent. Patient understands and QUESTIONS were answered. Procedure note. After getting consent patient was taken to OR in prone position. Back prepped with chlorhexidine and draped in sterile fashion. After injecting 5 mL of plain 1% lidocaine subcutaneously a 22-gauge spinal needle was introduced under tunnel vision of the fluoroscope on the RIGHT iliolumbar ligament area just below the right L5 transverse process. The needle position confirmation by AP and crosstable lateral view of the fluoroscope, after negative aspiration, 2 mL solution was injected which consists of 1 mL of 40 mg Depo-Medrol mixed with 1 ml of 0.5% Ropivacaine. In exactly the same way LEFT iliolumbar ligament injected with same amount of solution. Oral were taken out. Disposition. Patient tolerated the procedure well. No complication. Discharged home in stable condition.
[2024-09-08 12:13] VITALS: BP 144/88; PULSE 69
--- NOTE | 2024-09-08 12:35 | FL ---
Fluoroscopy INDICATION: Pain FINDINGS: Fluoroscopy time: 33.9 seconds. Total dose area product (DAP) in uGy*m?, mGy*cm? (or similar): 0.79331 Images obtained: 3. IMPRESSION: 1. Documentation of fluoroscopy. [facility], , 09/08/2024 12:32 PM
== END ==
LOC: ORPAIN 08:52
PROVIDERS: ATTEND Pain Medicine Interventional Pain Medicine
DX: M47.816 Spondylosis without myelopathy or radiculopathy, lumbar region (principal)
CPT/HCPCS: 20550; J2795; J1010

== ENCOUNTER → 2024-10-08 | Outpatient (CLI) | payer OTHER ==
[2024-10-08 09:30] VITALS: BP 116/74; PULSE 67; RESP 16
--- NOTE | 2024-10-08 15:00 | P.PAINPG ---
PQRS Measure Charge Sheet Comment: HISTORY OF PRESENT ILLNESS: A 69 yr old male w at side presents today w severe and chronic LBP > 35 yrs secondary to post R L4-L5 sacha laminectomy (2013) syndrome for evaluation s/p BL iliolumbar ligament #2. Pt states he experienced 80 % pain relief x 3 wks s/p procedure. Pt states pain level is at 8 /10 in intensity, intermittent, localized in the mid to lower lumbar spine, predominantly axial, achy in character without shooting pain. Pain is provoked by PT years ago, walking/sitting/ standing in one position for periods of 10 min or more. Pain is alleviated by physician guided home stretching regimen every morning x 1 yr, medications, topicals, heat, laying supine, repositioning and rest. Interventional procedures include Caudal MORIS w Lysis x3, BL RFA L3-L5 (January 2022, Nov 2022, Apr 2024), BL iliolumbar x1, L TFESI L4-L5 x2, BL RFA L3-L5 (Apr 2024), BL iliolumbar ligament injection x2 (Jun 2024, Aug 2024) Medications include Aleve, Lidoderm, Neurontin, Tyl, Cannabis use REVIEW OF ORGAN SYSTEMS: CONSTITUTIONAL: No fevers or chills. No recent weight loss. NEUROLOGICAL: + numbness and tingling along the distal extremities. No seizure disorders or headaches. MUSCULOSKELETAL: + pain PSYCHIATRIC: Denies current depression or suicidal thoughts. Physical Examinations : Constitutional : Cooperative , not in acute distress . Neurologic : Cranial nerve II to XII intact. No focal neurological deficits. Psychiatric : alert & oriented x 3. Matching mood & appropriate affect. Judgment & insight intact. Musculoskeletal : Cervical Spine Motor strength in the deltoid and biceps: Normal right side. Normal Left side Motor strength biceps and the wrist extensors: Normal right side . Normal left side Motor strength in the triceps muscle: Normal right side. Normal left side Deep tendon reflexes: Normal at the biceps. Normal at Brachioradialis. Normal at triceps Vertebral body tenderness to deep palpation over Cervical facet loading test: positive bilaterally Spurling test: positive bilaterally Neck distraction test: positive bilaterally Julieta sign: positive bilaterally Lumbar spine Motor strength lower extremities ,thigh and legs 5/5 Right side , 5/5 Left side Deep tendon reflexes : Normal Knee Jerk. Normal Ankle Jerk Vertebral body tenderness over L5 Lumbar facet Loading Test: positive Right / positive Left L4-L5, L5-S1 Range of motion of the lumbar spine Flexion 30 degrees, extension 10 degrees Straight Leg Raise test: Left/ Right positive at <35 degrees Tano test: positive right / positive left. Severe tenderness over the Sacroiliac joint on the Right / Left sides Gaenslen test: positive bilaterally Seated flexion test: positive bilaterally. Sacral spine : Severe tenderness over the Sacroiliac joint: right side / left side Range of motion: Flexion of the lumbar spine <60 degrees Range of motion: Extension of the lumbar spine <20 degrees Gaenslen's Test positive Mohit's Test positive Tano test: positive right side / left side Thigh Thrust Test Sacral Thrust Test Imaging: MRI non contrast of the lumbar spine from 10/09/23 reviewed Assessment/ Plan : LBP secondary to R L4-L5 sacha-laminectomy Will manage residual pain and may RTC on an as needed basis. All questions answered. I have spent greater than 30 minutes on patient care today. Dr Calxi was available by phone for the evaluation of this patient. The time was used to review the medical records including relevant urine studies and Prescription history (MAPs), review of the available imaging, evaluation and examination of the patient, coordination of care with the medical staff and if applicable referring physicians, as well as creation of the medical record PQRS Narrative: Smoking Status Current every day smoker Hx Alcohol Use (MH) Yes: rare; former daily use Home Medications: Ambulatory Orders Gabapentin [Neurontin] 600 mg PO BID 02/18/20 Multivitamins, Thera [Multivitamin (formulary)] 1 tab PO QAM 08/22/21 Folic Acid 1 mg PO QAM 01/02/22 Atorvastatin [Lipitor] 10 mg PO HS 03/06/22 Lidocaine [Lidoderm 5% Patch] 1 patch TRANSDERM DAILY PRN 03/06/22 Sodium Chloride Tab 1 gm PO BID 03/06/22 Metoprolol Tartrate [Lopressor] 100 mg PO BID 05/25/22 lisinopriL [Prinivil] 10 mg PO HS 05/25/22 levETIRAcetam [Keppra] 250 mg PO Q12HR 05/06/23 Aspirin 81 mg PO HS 11/27/23 rOPINIRole HCL [Requip] 0.25 mg PO HS PRN 11/27/23 Thiamine [Vitamin B-1] 100 mg PO QAM 02/03/24 diazePAM [Valium] 5 mg PO DAILY PRN 1 Days #2 tab 08/10/24 Controlled Substance Measures - Controlled Substance Measures Is patient prescribed a controlled substance at discharge?: No
== END ==
LOC: PNWHC3 08:16
PROVIDERS: ATTEND Specialist
DX: M96.1 Postlaminectomy syndrome, not elsewhere classified (principal); F17.200 Nicotine dependence, unspecified, uncomplicated
CPT/HCPCS: 99211

== ENCOUNTER → 2024-12-23 | Outpatient (CLI) | payer OTHER ==
[2024-12-23 09:21] VITALS: BP 147/90; PULSE 85; RESP 16; TEMP 97.5
--- NOTE | 2024-12-23 14:58 | P.PAINPG ---
PQRS Measure Charge Sheet Comment: HISTORY OF PRESENT ILLNESS: A 69 yr old male w at side presents today w severe and chronic LBP > 35 yrs secondary to post R L4-L5 sacha laminectomy (2013) syndrome for evaluation. Pt underwent a BL RFA L4-L5/ L5-S1 in Apr 2024 where he experienced 60% pain relief x 6 mo s/p procedure. Pt states pain level is at 8-9 /10 in intensity, intermittent, localized in the mid to lower lumbar spine, predominantly axial, achy in character without shooting pain. Pain is provoked by PT years ago, walking/sitting/ standing in one position for periods of 10 min or more. Pain is alleviated by physician guided home stretching regimen every morning x 1 yr, medications, topicals, heat, laying supine, repositioning and rest. Interventional procedures include Caudal MORIS w Lysis x3, BL RFA L3-L5 (January 2022, Nov 2022, Apr 2024), BL iliolumbar x1, L TFESI L4-L5 x2, BL RFA L3-L5 (Apr 2024), BL iliolumbar ligament injection x2 (Jun 2024, Aug 2024) Medications include Aleve, Lidoderm, Neurontin, Tyl, Cannabis use REVIEW OF ORGAN SYSTEMS: CONSTITUTIONAL: No fevers or chills. No recent weight loss. NEUROLOGICAL: + numbness and tingling along the distal extremities. No seizure disorders or headaches. MUSCULOSKELETAL: + pain PSYCHIATRIC: Denies current depression or suicidal thoughts. Physical Examinations : Constitutional : Cooperative , not in acute distress . Neurologic : Cranial nerve II to XII intact. No focal neurological deficits. Psychiatric : alert & oriented x 3. Matching mood & appropriate affect. Judgment & insight intact. Musculoskeletal : Cervical Spine Motor strength in the deltoid and biceps: Normal right side. Normal Left side Motor strength biceps and the wrist extensors: Normal right side . Normal left side Motor strength in the triceps muscle: Normal right side. Normal left side Deep tendon reflexes: Normal at the biceps. Normal at Brachioradialis. Normal at triceps Vertebral body tenderness to deep palpation over Cervical facet loading test: positive bilaterally Spurling test: positive bilaterally Neck distraction test: positive bilaterally Julieta sign: positive bilaterally Lumbar spine Motor strength lower extremities ,thigh and legs 5/5 Right side , 5/5 Left side Deep tendon reflexes : Normal Knee Jerk. Normal Ankle Jerk Vertebral body tenderness over L5 Lumbar facet Loading Test: positive Right / positive Left L4-L5, L5-S1 Range of motion of the lumbar spine Flexion 30 degrees, extension 10 degrees Straight Leg Raise test: Left/ Right positive at <35 degrees Tano test: positive right / positive left. Severe tenderness over the Sacroiliac joint on the Right / Left sides Gaenslen test: positive bilaterally Seated flexion test: positive bilaterally. Sacral spine : Severe tenderness over the Sacroiliac joint: right side / left side Range of motion: Flexion of the lumbar spine <60 degrees Range of motion: Extension of the lumbar spine <20 degrees Gaenslen's Test positive Mohit's Test positive Tano test: positive right side / left side Thigh Thrust Test Sacral Thrust Test Imaging: MRI non contrast of the lumbar spine from 10/09/23 reviewed Assessment/ Plan : LBP secondary to R L4-L5 sacha-laminectomy Recommendation of BL RFA L4-L5, L5-S1. Risks, benefits of procedure discussed and patient verbalized understanding. Protocol for discontinuation/continuation of medications surrounding procedure discussed. Minimal anesthesia including Fentanyl and Versed if clinically indicated. All questions answered. I have spent greater than 30 minutes on patient care today. Dr Calix was available by phone for the evaluation of this patient. The time was used to review the medical records including relevant urine studies and Prescription h istory (MAPs), review of the available imaging, evaluation and examination of the patient, coordination of care with the medical staff and if applicable referring physicians, as well as creation of the medical record PQRS Narrative: Smoking Status Current every day smoker Hx Alcohol Use (MH) Yes: rare; former daily use Home Medications: Ambulatory Orders Gabapentin [Neurontin] 600 mg PO BID 02/18/20 Multivitamins, Thera [Multivitamin (formulary)] 1 tab PO QAM 08/22/21 Folic Acid 1 mg PO QAM 01/02/22 Atorvastatin [Lipitor] 10 mg PO HS 03/06/22 Lidocaine [Lidoderm 5% Patch] 1 patch TRANSDERM DAILY PRN 03/06/22 Sodium Chloride Tab 1 gm PO BID 03/06/22 Metoprolol Tartrate [Lopressor] 100 mg PO BID 05/25/22 lisinopriL [Prinivil] 10 mg PO HS 05/25/22 levETIRAcetam [Keppra] 250 mg PO Q12HR 05/06/23 Aspirin 81 mg PO HS 11/27/23 rOPINIRole HCL [Requip] 0.25 mg PO HS PRN 11/27/23 Thiamine [Vitamin B-1] 100 mg PO QAM 02/03/24 diazePAM [Valium] 5 mg PO DAILY PRN 1 Days #2 tab 08/10/24 Controlled Substance Measures - Controlled Substance Measures Is patient prescribed a controlled substance at discharge?: No
== END ==
LOC: PNWHC3 08:40
PROVIDERS: ATTEND Specialist
DX: M54.50 Low back pain, unspecified (principal); M96.1 Postlaminectomy syndrome, not elsewhere classified; F17.210 Nicotine dependence, cigarettes, uncomplicated; F12.90 Cannabis use, unspecified, uncomplicated
CPT/HCPCS: 99211

== ENCOUNTER 2025-01-08 06:56 | Day surgery (SDC) | payer OTHER ==
[2025-01-07 08:22] VITALS: BMI 14.8
[~2025-01-08 06:56] MED LIST changes: -ROPIVACAINE 5MG/ML 20ML VIAL ONE; -methylPREDNISolone ACETATE 80 MG/ML 1 ML VIAL ONE
[2025-01-08] MEDS: LACTATED RINGERS 1,000 ML IV ONE (07:12)
[2025-01-08 07:31] VITALS: TEMP 97
[2025-01-08] MEDS ORDERED: methylPREDNISolone ACETATE 40 MG/ML 1 ML VIAL ONE (08:18)
[2025-01-08] MEDS ORDERED: MIDAZOLAM 2 MG/2 ML VIAL ONE (08:18)
[2025-01-08] MEDS ORDERED: fentaNYL (PF) 50 MCG/ML 2 ML AMP ONE (08:18)
[2025-01-08] MEDS ORDERED: ROPIVACAINE 5MG/ML 20ML VIAL ONE (08:18)
--- NOTE | 2025-01-08 08:40 | P.PCN ---
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 2- Lumber degenerative disc disease. 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 2- Lumber degenerative disc disease. PROCEDURES : Bilateral Radiofrequency thermocoagulation, L3 , L4 , and L5 medial branch, with fluro guid (fluoro images available in the rad dept) ( to denervate the facet joint at bilateral L4-5 ,and L5-S1 levels ). ANESTHESIA: Moderate sedation with intravenous versed 2 mg and fentaneyl 100 mcg, (start time 08:18, end at 08:37 ) EBL: Minimal PROCEDURE INDICATION: The patient with low back pain secondary to lumbar facet arthropathy who had more than 50% relief of her pain with previous diagnostic lumbar medial branch block with bupivacaine. PROCEDURE DESCRIPTION / TECHNIQUE: The patient was seen and identified in the preoperative area. Risks, benefits, complications, including but not limited to risk of infection ,bleeding , allergic reactions to the medications and no complete pain releife , and alternatives were discussed with the patient, the patient agreed to proceed with the procedure and signed the consent. IV was started. Vital signs remained stable throughout the procedure. Patient was taken to the OR and time out was completed. The patient was placed in the prone position on the procedure table. The lumber area was prepped and draped in the usual sterile fashion. . Vital signs were closely monitored during the procedure .IV sedation was used during the procedure to decrease patients anxiety. Using AP and then oblique fluoroscopy, the ``eye of the Donovan dog corresponding to the connection between the superior and transverse articular processes of right L3, L4, and L5 were identified, marked, and localized with 1% lidocaine. Subsequently, a 18 [id number] (Venom ) radiofrequency cannula with a 10-mm active tip was advanced guided by fluoroscopy to each of the``eyes of the Donovan dog at right L3, L4, and L5. Each site then underwent sensory testing at 50 Hz and 0 to 1 volt and motor testing at 2.5 Hz and 0 to 3 volt with local stimulation, but no radicular symptoms down the legs. Thereafter each sites underwent radiofrequency thermocoagulation at 80 degrees celsius for 90 seconds after injecting 0.5 ml of PF Ropivacaine 1ml, then after the thermocoagulation done , 1 ml of the block solution containing Depo-Medrol 20 mg and 3 ml of Ropivacaine 0.5% was injected at the right L3 , L4 , and L5 , levels after negative aspiration of CSF and blood and with no paresthesias. Cannulas were retracted while injecting lidocaine 1% until the needle is out. The same procedure was repeated at the level of Left L3, L4, and L5 levels. At the end of the procedure, the skin was cleansed and bandages were applied. COMPLICATIONS: No acute complications. DISPOSITION / PLANS: The patient was placed in a supine position and transferred to the recovery area in a stable condition for observation and was discharged from the recovery room after meeting discharge criteria. Home discharge instructions given to the patient by the staff. The patient was reexamined prior to discharge. The patient will schedule a follow up in the clinic in 2-4 weeks.
[2025-01-08] MEDS: IV FLUID CONTINUATION 1,000 ML IV ONE (08:44)
[2025-01-08 08:48] VITALS: RESP 16
[2025-01-08] MEDS: fentaNYL (PF) 50 MCG/ML 2 ML AMP IVP PRN (08:51)
[2025-01-08 09:01] VITALS: BP 114/58; PULSE 64
--- NOTE | 2025-01-08 09:02 | FL ---
EXAMINATION TYPE: FL guided pain mgmt statistic DATE OF EXAM: 01/08/2025 8:41 AM COMPARISON: Pre Operative Images if available both CT/MRI or plain film CLINICAL INDICATION: Male, 69 years old with history of Young Lumbar Rad Freq; TECHNIQUE: FL guided pain mgmt statistic, multiple fluoroscopic images provided for procedure. DAP: 0.65844 mGym2 Gycm2 uGym2 cGycm2 or equivalent. FINDINGS: Fluoroscopic images during injection for pain management demonstrate multilevel degeneration changes throughout the spine. No evidence for fracture. No acute process identified. IMPRESSION: 1. No evidence for intraoperative complication. 2. Please see the operative/procedural note for further details. [facility], , 01/08/2025 9:00 AM
== END 2025-01-08 09:23 | disposition home or self-care (01) ==
LOC: ORPAIN 06:56
PROVIDERS: ATTEND Specialist
DX: M47.816 Spondylosis without myelopathy or radiculopathy, lumbar region (principal); M51.369 Other intervertebral disc degeneration, lumbar region without mention of lumbar back pain or lower extremity pain
CPT/HCPCS: 64635; 64636; J2250; J3010; J2795; J1010; 99152; 99153

== ENCOUNTER → 2025-02-01 | Outpatient (CLI) | payer OTHER ==
[2025-02-01 08:35] VITALS: BP 141/96; PULSE 101; RESP 16; TEMP 98.5
--- NOTE | 2025-02-01 16:34 | P.PAINPG ---
Objective - Vital Signs Vital signs: Vital Signs Temp 98.5 F 02/01/25 08:27 Pulse 101 H 02/01/25 08:27 Resp 16 02/01/25 08:27 BP 141/96 02/01/25 08:27 Pulse Ox 99 02/01/25 08:27 FiO2 Intake & Output 01/31/25 02/01/25 02/01/25 18:59 06:59 18:59 Weight 48.761 kg PQRS Measure Charge Sheet Mode of Arrival: Ambulatory Comment: HISTORY OF PRESENT ILLNESS: A 69 yr old male w at side presents today w severe and chronic LBP > 35 yrs secondary to post R L4-L5 sacha laminectomy (2013) syndrome for evaluation s/p BL RFA L4-L5/ L5-S1. Pt states he experienced 60% pain relief s/p procedure. Pt states pain level is at 7 /10 in intensity, intermittent, localized in the lower lumbar spine, predominantly axial, achy in character without shooting pain. Pain is provoked by PT years ago, walking/sitting/ standing in one position for periods of 10 min or more. Pain is alleviated by physician guided home stretching regimen every morning x 1 yr, medications, topicals, heat, laying supine, repositioning and rest. Interventional procedures include Caudal MORIS w Lysis x3, BL RFA L3-L5 (02/18, 12/20, 05/03, 01/22), BL iliolumbar x1, L TFESI L4-L5 x2, BL RFA L3-L5 (Apr 2024), BL iliolumbar ligament injection x2 (Jun 2024, Aug 2024) Medications include Aleve, Lidoderm, Neurontin, Tyl, Cannabis use REVIEW OF ORGAN SYSTEMS: CONSTITUTIONAL: No fevers or chills. No recent weight loss. NEUROLOGICAL: + numbness and tingling along the distal extremities. No seizure disorders or headaches. MUSCULOSKELETAL: + pain PSYCHIATRIC: Denies current depression or suicidal thoughts. Physical Examinations : Constitutional : Cooperative , not in acute distress . Neurologic : Cranial nerve II to XII intact. No focal neurological deficits. Psychiatric : alert & oriented x 3. Matching mood & appropriate affect. Judgment & insight intact. Musculoskeletal : Cervical Spine Motor strength in the deltoid and biceps: Normal right side. Normal Left side Motor strength biceps and the wrist extensors: Normal right side . Normal left side Motor strength in the triceps muscle: Normal right side. Normal left side Deep tendon reflexes: Normal at the biceps. Normal at Brachioradialis. Normal at triceps Vertebral body tenderness to deep palpation over Cervical facet loading test: positive bilaterally Spurling test: positive bilaterally Neck distraction test: positive bilaterally Julieta sign: positive bilaterally Lumbar spine Motor strength lower extremities ,thigh and legs 5/5 Right side , 5/5 Left side Deep tendon reflexes : Normal Knee Jerk. Normal Ankle Jerk Vertebral body tenderness over L5 Lumbar facet Loading Test: positive Right / positive Left L4-L5, L5-S1 Range of motion of the lumbar spine Flexion 30 degrees, extension 10 degrees Straight Leg Raise test: Left/ Right positive at <35 degrees Tano test: positive right / positive left. Severe tenderness over the Sacroiliac joint on the Right / Left sides Gaenslen test: positive bilaterally Seated flexion test: positive bilaterally. Sacral spine : Severe tenderness over the Sacroiliac joint: right side / left side Range of motion: Flexion of the lumbar spine <60 degrees Range of motion: Extension of the lumbar spine <20 degrees Gaenslen's Test positive Mohit's Test positive Tano test: positive right side / left side Thigh Thrust Test Sacral Thrust Test Imaging: MRI non contrast of the lumbar spine from 10/09/23 reviewed Assessment/ Plan : LBP secondary to R L4-L5 sacha-laminectomy Recommendation of BL iliolumbar ligament #1. Would benefit from an orthopedic surgery consult re: facet arthropathy and lumbar radiculopathy. Risks, benefits of procedure discussed and patient verbalized understanding. Minimal anesthesia including Fentanyl and Versed if clinically indicated. All questions answered. I have spent greater than 30 minutes on patient care today. Dr Calix was available by phone for the evaluation of this patient. The time was used to review the medical records including relevant urine studies and Prescription history (MAPs), review of the available imaging, evaluation and examination of the patient, coordination of care with the medical staff and if applicable referring physicians, as well as creation of the medical record - Pain Location Bilateral Lower Back Non-Pharmacological Interventions: Inactivity, Physical Therapy, Position/Reposition Pharmacological Interventions: Block, Epidural, PRN Medication, Topical Medication PQRS Narrative: Smoking Status Current every day smoker Blood Pressure 141/96 Pain Intensity [Bilateral 7 Lower Back] Scale Used Numeric (1 - 10) Hx Alcohol Use (MH) Yes: rare; former daily use Home Medications: Ambulatory Orders Gabapentin [Neurontin] 600 mg PO BID 02/18/20 Multivitamins, Thera [Multivitamin (formulary)] 1 tab PO QAM 08/22/21 Folic Acid 1 mg PO QAM 01/02/22 Atorvastatin [Lipitor] 10 mg PO HS 03/06/22 Lidocaine [Lidoderm 5% Patch] 1 patch TRANSDERM DAILY PRN 03/06/22 Sodium Chloride Tab 1 gm PO BID 03/06/22 Metoprolol Tartrate [Lopressor] 100 mg PO BID 05/25/22 lisinopriL [Prinivil] 10 mg PO HS 05/25/22 levETIRAcetam [Keppra] 250 mg PO Q12HR 05/06/23 Aspirin 81 mg PO HS 11/27/23 rOPINIRole HCL [Requip] 0.25 mg PO HS PRN 11/27/23 Thiamine [Vitamin B-1] 100 mg PO QAM 02/03/24 Controlled Substance Measures - Controlled Substance Measures Is patient prescribed a controlled substance at discharge?: No
== END | disposition home or self-care (01) ==
LOC: PNWHC3 08:00
PROVIDERS: ATTEND Specialist
DX: M54.50 Low back pain, unspecified (principal); M96.1 Postlaminectomy syndrome, not elsewhere classified; F17.200 Nicotine dependence, unspecified, uncomplicated; F12.90 Cannabis use, unspecified, uncomplicated
CPT/HCPCS: 99211

== ENCOUNTER → 2025-03-15 | Outpatient (CLI) | payer OTHER ==
[2025-03-15 09:22] VITALS: BP 130/88; PULSE 119; RESP 16; TEMP 97.3
--- NOTE | 2025-03-15 15:43 | P.PAINPG ---
Objective - Vital Signs Vital signs: Vital Signs Temp 97.3 F L 03/15/25 09:14 Pulse 119 H 03/15/25 09:14 Resp 16 03/15/25 09:14 BP 130/88 03/15/25 09:14 Pulse Ox 98 03/15/25 09:14 FiO2 Intake & Output 03/14/25 03/15/25 03/15/25 18:59 06:59 18:59 Weight 49.895 kg PQRS Measure Charge Sheet Mode of Arrival: Ambulatory Comment: HISTORY OF PRESENT ILLNESS: A 69 yr old male w at side from the [facility] presents today w severe and chronic LBP > 35 yrs secondary to post R L4-L5 sacha laminectomy (2013) syndrome for evaluation s/p BL iliolumbar ligament #1. Pt states he experienced 70% pain relief s/p procedure. Pt states pain level is at 4 /10 in intensity, intermittent, localized in the lower lumbar spine, predominantly axial, achy in character without shooting pain. Pain is provoked by PT years ago, walking/sitting/ standing in one position for periods of 10 min or more. Pain is alleviated by physician guided home stretching regimen every morning x 1 yr, medications, topicals, heat, laying supine, repositioning and rest. Interventional procedures include Caudal MORIS w Lysis x3, BL RFA L3-L5 (02/18, 12/20, 05/03, 01/22), BL iliolumbar x1, L TFESI L4-L5 x2, BL RFA L3-L5 (Apr 2024), BL iliolumbar ligament injection x3 (07/23, 09/22, 02/21) Medications include Aleve, Lidoderm, Neurontin, Tyl, Cannabis use REVIEW OF ORGAN SYSTEMS: CONSTITUTIONAL: No fevers or chills. No recent weight loss. NEUROLOGICAL: + numbness and tingling along the distal extremities. No seizure disorders or headaches. MUSCULOSKELETAL: + pain PSYCHIATRIC: Denies current depression or suicidal thoughts. Physical Examinations : Constitutional : Cooperative , not in acute distress . Neurologic : Cranial nerve II to XII intact. No focal neurological deficits. Psychiatric : alert & oriented x 3. Matching mood & appropriate affect. Judgment & insight intact. Musculoskeletal : Cervical Spine Motor strength in the deltoid and biceps: Normal right side. Normal Left side Motor strength biceps and the wrist extensors: Normal right side . Normal left side Motor strength in the triceps muscle: Normal right side. Normal left side Deep tendon reflexes: Normal at the biceps. Normal at Brachioradialis. Normal at triceps Vertebral body tenderness to deep palpa tion over Cervical facet loading test: positive bilaterally Spurling test: positive bilaterally Neck distraction test: positive bilaterally Julieta sign: positive bilaterally Lumbar spine Motor strength lower extremities ,thigh and legs 5/5 Right side , 5/5 Left side Deep tendon reflexes : Normal Knee Jerk. Normal Ankle Jerk Vertebral body tenderness over L5 Lumbar facet Loading Test: positive Right / positive Left L4-L5, L5-S1 Range of motion of the lumbar spine Flexion 30 degrees, extension 10 degrees Straight Leg Raise test: Left/ Right positive at <35 degrees Tano test: positive right / positive left. Severe tenderness over the Sacroiliac joint on the Right / Left sides Gaenslen test: positive bilaterally Seated flexion test: positive bilaterally. Sacral spine : Severe tenderness over the Sacroiliac joint: right side / left side Range of motion: Flexion of the lumbar spine <60 degrees Range of motion: Extension of the lumbar spine <20 degrees Gaenslen's Test positive Mohit's Test positive Tano test: positive right side / left side Thigh Thrust Test Sacral Thrust Test Imaging: MRI non contrast of the lumbar spine from 10/09/23 reviewed Assessment/ Plan : LBP secondary to R L4-L5 sacha-laminectomy Would benefit from an orthopedic surgery consult re: facet arthropathy and lumbar radiculopathy. All questions answered. I have spent greater than 30 minutes on patient care today. Dr Calix was available by phone for the evaluation of this patient. The time was used to review the medical records including relevant urine studies and Prescription history (MAPs), review of the available imaging, evaluation and examination of the patient, coordination of care with the medical staff and if applicable referring physicians, as well as creation of the medical record - Pain Location Bilateral Lower Back Non-Pharmacological Interventions: Home Exercise, Inactivity, Position/Reposition, Sitting, Standing, Stretching Pharmacological Interventions: Block, Epidural, PRN Medication, Scheduled Medication, Topical Medication PQRS Narrative: Smoking Status Current every day smoker Blood Pressure 130/88 Pain Intensity [Bilateral 4 Lower Back] Scale Used Numeric (1 - 10) Hx Alcohol Use (MH) Yes: rare; former daily use Home Medications: Ambulatory Orders Gabapentin [Neurontin] 600 mg PO BID 02/18/20 Multivitamins, Thera [Multivitamin (formulary)] 1 tab PO QAM 08/22/21 Folic Acid 1 mg PO QAM 01/02/22 Atorvastatin [Lipitor] 10 mg PO HS 03/06/22 Lidocaine [Lidoderm 5% Patch] 1 patch TRANSDERM DAILY PRN 03/06/22 Sodium Chloride Tab 1 gm PO BID 03/06/22 Metoprolol Tartrate [Lopressor] 100 mg PO BID 05/25/22 lisinopriL [Prinivil] 10 mg PO HS 05/25/22 levETIRAcetam [Keppra] 250 mg PO Q12HR 05/06/23 Aspirin 81 mg PO HS 11/27/23 rOPINIRole HCL [Requip] 0.25 mg PO HS PRN 11/27/23 Thiamine [Vitamin B-1] 100 mg PO QAM 02/03/24 Controlled Substance Measures - Controlled Substance Measures Is patient prescribed a controlled substance at discharge?: No
== END ==
LOC: PNWHC3 09:01
PROVIDERS: ATTEND Specialist
DX: M47.26 Other spondylosis with radiculopathy, lumbar region (principal); F12.90 Cannabis use, unspecified, uncomplicated; F17.200 Nicotine dependence, unspecified, uncomplicated; Z98.890 Other specified postprocedural states
CPT/HCPCS: 99211